=== PATIENT | male | born 1960 | race Caucasian/White ===

== ENCOUNTER → 2018-02-10 15:09 | Outpatient (CLI) | payer OTHER, SELFPAY ==
[2018-02-10 17:29] LABS: Absolute Lymphocyte Count 1.49 X10^3/ul (0.83-4.51); Absolute Neutrophil Count 5.4 X10^3/uL (2.0-7.7); Basophil# 0.01 X10^3/uL; Basophil% 0.1 % (0-1); Eosinophil# 0.19 X10^3/uL; Eosinophils% 2.4 % (0-5); Hematocrit 44.1 % (40-54); Hemoglobin 15.3 g/dl (13.0-16.5); Lymphocyte # 1.49 X10^3/ul (4.0); Lymphocyte % 18.6 % (19-41); Mean Corp Hgb Conc 34.7 g/gl (32-36); Mean Corpuscular Volume 95.2 fL (80-94); Mean Platelet Vol. 11.9 fl (6.2-12.0); Monocyte# 0.94 X10^3/uL; Monocyte% 11.8 % (0-10); Neutrophil # 5.36 X10^3/uL (2.7-7.7); Platelet Count 226 K/mm3 (150-450); RBC Distribution Width CV 12.5 % (11.6-14.6); RBC Distribution Width SD 42.3 fl (35.1-43.9); Red Blood Count 4.63 M/mm3 (4.6-6.2)
[2018-02-10 17:31] LABS: POSITIVE COUNT NO; POSITIVE DIFFERENTIAL NO; POSITIVE MORPHOLOGY NO
[2018-02-10 17:45] LABS: Hemoglobin A1c 6.9 % (4.2-6.3)
[2018-02-10 17:53] LABS: ALB/GLOB Ratio 0.8 RATIO (0.9-2.4); AST(SGOT) 25 U/L (15-37); Alanine Aminotransfer ALT/SGPT 39 U/L (16-61); Albumin, Serum 3.5 g/dL (3.2-5.0); Alkaline Phosphatase 104 U/L (45-117); Anion Gap 8 (5-15); BUN 18 mg/dL (7-18); Calcium,Total 8.8 mg/dL (8.5-10.1); Chloride 105 mmol/L (98-107); Cholesterol 131 mg/dL (200); Creatinine, Serum 1.29 mg/dL (0.70-1.30); EST Glomerular Filtration Rate 61 mL/min (>60); Est Glom Filt Rate - Afr Amer 74 mL/min (>60); Globulin 4.2 g/dL (2.2-4.2); Glucose 93 mg/dL (74-106); High Density Lipoprotein 31 mg/dL; Potassium 4.5 mmol/L (3.5-5.1); Protein, Total 7.7 g/dL (6.4-8.2); Sodium Level 140 mmol/L (136-145); T4 Free Direct 0.93 ng/dL (0.76-1.46); Thyroid Stim Hormone (TSH) 2.09 uIU/mL (0.358-3.74); Triglycerides 189 mg/dL; Very Low Density Lipoprotein 38 mg/dL (5-40)
[2018-02-11 08:36] LABS: Vitamin B12 342 pg/mL (211-911)
[2018-02-13 09:56] LABS: Anti-Mitochondrial AB <20.0 Units (0.0-20.0)
== END ==
PROVIDERS: Family Provider Family Medicine; PCP Family Medicine; Visit Provider Family Medicine
DX: I10 Essential (primary) hypertension (principal); G62.9 Polyneuropathy, unspecified; E03.9 Hypothyroidism, unspecified; E66.01 Morbid (severe) obesity due to excess calories
CPT/HCPCS: 36415; 80053; 80061; 82607; 83036; 83516; 84439; 84443; 85025

== ENCOUNTER 2018-12-23 03:49 | Emergency (ER) | payer OTHER, SELFPAY ==
[2018-12-23 03:49] VITALS: BP 187/105; PULSE 88; RESP 18; TEMP 36.4; O2SAT 96; BMI 54.6
--- NOTE | 2018-12-23 04:03 | ED.VIS.GEN ---
History of Present Illness Chief Complaint: Back Informant: Patient Narrative: She stated for the last 4 days has had left lower back pain. He has chronic back pain due to chronic degenerative disease in his low back. He has had epidurals and has been in pain management in the past with no relief. He took 2 tramadol tonight with minimal relief of symptoms. Is movement related. At baseline he has difficulty walking secondary to his chronic back pain. No new injury. It came on after he was working with some cutting of wood on a table saw 4 days ago. No loss of bowel or bladder function. No radiation to his leg. Denies any flank pain. No urinary symptoms. Past Medical History - Allergies and Home Meds Allergies/Adverse Reactions: Allergies No Known Allergies Allergy (Verified 12/23/18 03:51) Primary Care Physician: Nehemiah Mendez MD [STAFF PHYSICIAN] - Prior records reviewed: Yes Past Medical History: - - Degenerative disc disease of his back, morbid obesity Lives: Spouse/ Significant Other Smoking Status: Unknown if ever smoked Alcohol: None Drugs: None Review of Systems General: Denies: Chills, Fever, Sweats Eyes: Denies: Visual changes - bilaterally, Diplopia ENT: Denies: Rhinorrhea, Sore throat Cardiovascular: Denies: Chest pain, Palpitations Respiratory: Denies: Dyspnea, Cough, Dyspnea on exertion Gastrointestinal: Denies: Abdominal pain, Nausea, Vomiting, Diarrhea, Melena, Hematochezia Genitourinary: Denies: Dysuria, Hematuria, Frequency Musculoskeletal: Reports: Back pain. Denies: Extremity Pain Skin: Denies: Rash, Wounds Neurological: Denies: Headache, Weakness, Numbness Physical Exam Vital Signs/Narrative: Vital Signs Temp Pulse Resp BP Pulse Ox 12/23/18 03:49 97.5 F L 88 18 187/105 H 96 General: Well nourished, Well developed, No Acute Distress Head: Normocephalic, Atraumatic Eyes: Perrl, EOMI ENT: Moist mucous membranes, No rhinorrhea Neck: Supple, Nontender Cardiovascular: Regular rate, Regular rhythm, No murmurs Respiratory: No distress, CTA bilaterally, Chest nontender Abdomen: Soft, Nontender, Nondistended, Normal bowel sounds Back: - - She has left lower lumbar paraspinal tenderness. No swelling or deformity. Decreased range of motion secondary to pain. Difficulty with movement secondary to pain.. Negative for: Nontender, Normal Inspection Extremities: Nontender, No edema Skin: Normal color, No rash Neurological: Alert, Oriented x3, Cranial nerves II-XII grossly intact, Normal Strength, Normal Sensation Psychological: Normal affect, Normal Mood Diagnostic/Tx/Re-eval - Medical Decision Making This time I do not feel the patient needs lab work. This appears to be an acute left paraspinal muscular pain. Could be spasm related. Could be from his degenerative lower back disease. He has no radicular symptoms. Given a dose of Toradol and Dilaudid. She feels significantly better after treatment. Will be discharged with a short course of Percocet and Flexeril. I think this is musculoskeletal pain. He has not had an MRI for 5 years. I do not think he needs one emergently but I feel he should follow-up for further evaluation and likely will need a repeat. This will further evaluate any progression of his back disease. ED Disposition - Plan for ED Patient: Disposition: Home or Assisted Living Diagnosis: Back pain, lumbosacral Instructions: ED Sprain Strain Lumbar Prescriptions: Oxycodone HCl/Acetaminophen [Percocet 5/325] 1 tab PO Q6H PRN PRN 3 Days #12 tab PRN Reason: Pain Cyclobenzaprine [Flexeril] 10 mg PO TID PRN #10 tab PRN Reason: Muscle Spasm Referrals: Nehemiah Mendez MD [STAFF PHYSICIAN] -
[2018-12-23] MEDS: Ketorolac 30 MG/ML Syringe IM (04:10)
[2018-12-23] MEDS: HYDROmorphone 1 MG/ML Syringe IM (04:12)
[2018-12-23 05:00] VITALS: BP 161/98; PULSE 80; RESP 16; O2SAT 94
== END 2018-12-23 05:02 | disposition home or self-care (01) ==
PROVIDERS: Emergency Provider Emergency Medicine
DX: M54.5 Low back pain (principal); G89.29 Other chronic pain; R26.2 Difficulty in walking, not elsewhere classified; E66.01 Morbid (severe) obesity due to excess calories; Z79.899 Other long term (current) drug therapy
CPT/HCPCS: 96372; 99282

== ENCOUNTER 2018-12-27 04:30 | Observation (INO) | payer OTHER, SELFPAY ==
[2018-12-27 04:31] VITALS: BP 183/108; PULSE 108; RESP 28; TEMP 36.3; O2SAT 95; BMI 57.4
--- NOTE | 2018-12-27 04:54 | ED.VIS.GEN ---
History of Present Illness Chief Complaint: Back Informant: Patient Narrative: Patient stated he has been having back pain for the last week. He was seen in the emergency department 4 days ago. He is having left lower back pain with radiation to the left groin. Is movement related. I saw him in the emergency department at that time. He is has a history of acute on chronic back pain. He has had epidurals in the past with minimal relief of symptoms. He is never needed surgery. He does not have an acute orthopedic surgeon at this time. He denies any loss of bowel or bladder symptoms. It is movement related. It is worsened by movement and relieved with rest. He has been using Percocet and Flexeril with moderate relief of symptoms. He is out of Flexeril. He has 2 Percocets left. He tried to make an appointment with his doctor who is out of town. Past Medical History - Allergies and Home Meds Allergies/Adverse Reactions: Allergies No Known Allergies Allergy (Verified 12/27/18 04:34) Primary Care Physician: Care Physician,No Primary [NON-STAFF] - Prior records reviewed: Yes Past Medical History: - - Lumbar radiculopathy DJD lumbar, morbid obesity Surgical History: - - Reviewed Lives: Spouse/ Significant Other Smoking Status: Never smoker Alcohol: None Drugs: None Review of Systems General: Denies: Chills, Fever, Sweats Eyes: Denies: Visual changes - bilaterally, Diplopia ENT: Denies: Rhinorrhea, Sore throat Cardiovascular: Denies: Chest pain, Palpitations Respiratory: Denies: Dyspnea, Cough, Dyspnea on exertion Gastrointestinal: Denies: Abdominal pain, Nausea, Vomiting, Diarrhea, Melena, Hematochezia Genitourinary: Denies: Dysuria, Hematuria, Frequency Musculoskeletal: Reports: Back pain. Denies: Extremity Pain Skin: Denies: Rash, Wounds Neurological: Denies: Headache, Weakness, Numbness Physical Exam Vital Signs/Narrative: Vital Signs Temp Pulse Resp BP Pulse Ox 12/27/18 04:31 97.4 F L 108 H 28 H 183/108 H 95 General: Well nourished, Well developed, No Acute Distress Head: Normocephalic, Atraumatic Eyes: Perrl, EOMI ENT: Moist mucous membranes, No rhinorrhea Neck: Supple, Nontender Cardiovascular: Regular rate, Regular rhythm, No murmurs Respiratory: No distress, CTA bilaterally, Chest nontender Abdomen: Soft, Nontender, Nondistended, Normal bowel sounds Back: Normal Inspection, - - There is spinal tenderness left lower back with decreased range of motion secondary to pain.. Negative for: Nontender Extremities: Nontender, No edema Skin: Normal color, No rash Neurological: Alert, Oriented x3, Cranial nerves II-XII grossly intact, Normal Strength, Normal Sensation Psychological: Normal affect, Normal Mood Diagnostic/Tx/Re-eval - Medical Decision Making Patient given IV Toradol and Dilaudid. Lab work obtained. Lab work shows no significant abnormalities. CT of the abdomen pelvis as well as lumbar spine was obtained to rule out acute emergent causes of his symptoms. There is no abdominal aortic aneurysm or dissection. The patient does have a left so as injury that explains his symptoms. He is having significant pain that comes and goes every couple hours. He is required a second dose of Dilaudid. He cannot take care of himself at home. He is morbidly obese and his is slim and she cannot due to this pain. He understands this can take weeks to heal. This likely happened when he was working in the garage and the wood got away from him on the saw. Low suspicion for nerve radiculopathy. Patient was discussed with the hospitalist and will be admitted. He will likely need physical therapy and further pain control ED Disposition - Plan for ED Patient: Disposition: Home or Assisted Living Diagnosis: Muscle tear Referrals: Care Physician,No Primary [NON-STAFF] -
[2018-12-27] MEDS: HYDROmorphone 1 MG/ML Syringe IV (05:02)
[2018-12-27] MEDS: Ketorolac 15 MG/ML Vial IV ×4 (05:02→22:10)
[2018-12-27 05:11] LABS: Absolute Lymphocyte Count 0.86 X10^3/ul (0.83-4.51); Absolute Neutrophil Count 6.9 X10^3/uL (2.0-7.7); Basophil# 0.01 X10^3/uL; Basophil% 0.1 % (0-1); Eosinophil# 0.06 X10^3/uL; Eosinophils% 0.7 % (0-5); Hematocrit 41.1 % (40-54); Lymphocyte # 0.86 X10^3/ul (4.0); Lymphocyte % 10.5 % (19-41); Mean Corp Hgb Conc 34.1 g/gl (32-36); Mean Corpuscular Hgb 31.2 pg (27.0-32.0); Mean Corpuscular Volume 91.5 fL (80-94); Mean Platelet Vol. 10.3 fl (6.2-12.0); Monocyte% 4.9 % (0-10); Neutrophil # 6.85 X10^3/uL (2.7-7.7); Neutrophil % 83.7 % (47-70); POSITIVE COUNT NO; POSITIVE DIFFERENTIAL NO; POSITIVE MORPHOLOGY NO; Platelet Count 193 K/mm3 (150-450); RBC Distribution Width CV 13.3 % (11.6-14.6); RBC Distribution Width SD 44.2 fl (35.1-43.9); Red Blood Count 4.49 M/mm3 (4.6-6.2); White Blood Count 8.2 K/mm3 (4.4-11.0)
[2018-12-27] MEDS: Ondansetron 4 MG/2 ML Vial IV (05:12)
[2018-12-27 05:23] LABS: Anion Gap 6 (5-15); BUN 13 mg/dL (7-18); BUN/Creat Ratio 11.7 RATIO (10-20); Calcium,Total 8.5 mg/dL (8.5-10.1); Chloride 102 mmol/L (98-107); Creatinine, Serum 1.11 mg/dL (0.70-1.30); EST Glomerular Filtration Rate 72 mL/min (>60); Est Glom Filt Rate - Afr Amer 87 mL/min (>60); Estimated Creatinine Clearance 70.18 ml/min; Glucose 158 mg/dL (74-106); Potassium 4.3 mmol/L (3.5-5.1); Sodium Level 136 mmol/L (136-145)
--- NOTE | 2018-12-27 05:24 | CT_ITS ---
STUDY: CT LUMBAR SPINE WITHOUT CONTRAST REASON FOR EXAM: Male, 58 years old. Low back pain. History of degenerative disks. RADIATION DOSAGE (If Supplied By Facility): CTDIvol = ( 34.45 ) mGy, DLP = ( 1910.97 ) mGycm TECHNIQUE: The patient was scanned in a multi detector CT scanner. High resolution transaxial imaging was performed. Images were obtained from T12 to S2-3. Sagittal and coronal images were reconstructed. Individualized dose optimization techniques were used for this CT. COMPARISON: CT scan abdomen and pelvis done today. FINDINGS: Normal lumbar lordosis. There is no substantial scoliosis. Normal vertebrae of the lumbar spine. L1-2: Normal endplates. Disc space narrowing.. Normal bilateral facet joints. Normal central canal and bilateral lateral recesses. Normal bilateral intervertebral neural foramina. L2-3: Normal endplates. Normal disc height and morphology. Normal bilateral facet joints. Normal central canal and bilateral lateral recesses. Normal bilateral intervertebral neural foramina. L3-4: Mild spondylosis. Normal disc height and morphology. Normal bilateral facet joints. Normal central canal and bilateral lateral recesses. Normal bilateral intervertebral neural foramina. L4-5: Mild spondylosis. Broad posterior disc protrusion.. Degenerative changes right facet joint.. Moderate stenosis central canal. Mild stenosis right and moderate stenosis left lateral recesses. Mild stenosis right and normal left intervertebral neural foramina. L5-S1: Mild spondylosis. Small broad posterior disc protrusion, asymmetrically larger on the left.. Normal disc height and morphology. Normal bilateral facet joints. Normal central canal and bilateral lateral recesses. Moderate narrowing right and normal left intervertebral neural foramina. Paraspinal findings were discussed in CT scan abdomen and pelvis report. CT/Spine Lumbar without Contrast IMPRESSION: Multilevel degenerative changes, as above. No demonstrated fracture or destructive bone lesion. Electronically Signed: Mickey Pina MD at 6:53 EDT , Service support ,
--- NOTE | 2018-12-27 05:26 | CT_ITS ---
STUDY: CT ABDOMEN AND PELVIS WITHOUT CONTRAST REASON FOR EXAM: Male, 58 years old. Low back pain. History of degenerative disks. RADIATION DOSAGE (If Supplied By Facility): CTDIvol = ( 34.45 ) mGy, DLP = ( 1910.97 ) mGycm TECHNIQUE: Transaxial images were obtained from the dome of the diaphragm to the symphysis pubis without oral contrast, and without intravenous contrast. Sagittal and coronal images were reconstructed. Individualized dose optimization techniques were used for this CT. COMPARISON: None. FINDINGS: The visualized lung bases are unremarkable. The visualized portions of the heart are within normal limits. There is decreased attenuation of the liver consistent with steatosis. Normal gallbladder and extrahepatic biliary system. There is mild splenomegaly. Normal pancreas. Normal bilateral adrenal glands. Normal right kidney. Normal left kidney. Normal visualized stomach. Normal small intestine. Normal colon. There is non-visualization of the appendix. There is no evidence for appendicitis. There is mild atherosclerotic calcification of the abdominal aorta, without a demonstrated aneurysm. Normal inferior vena cava. There is no demonstrated retroperitoneal lymphadenopathy. As seen on axial images 135-156, there is an approximately 7 x 3.5 x 7 cm area of focal fat infiltration in the left side of the pelvis. Fatty infiltration is contiguous with the left psoas muscle, and the left psoas muscle appears slightly larger than the right. Conceivably, this is secondary to a psoas muscle injury, or possibly psoas muscle infection. No discrete mass or abscess is visualized in this noncontrast study. Fat infiltration is not directly contiguous with the colon or urinary bladder. There is slight nodularity of fat in the inferior portion of the left posterior paranephric space, but not directly contiguous with the left kidney. The left ureter passes through the area of fat infiltration, but appears normal both proximal and distal to the infiltration. Normal urinary bladder. Normal abdominal wall. There are multilevel degenerative changes of the visualized lumbar spine. CT/Abdomen/Pelvis without Cont IMPRESSION: Focal infiltration of pelvic fat adjacent to the left psoas muscle, which is slightly larger than the right psoas. I suspect that this represents either left psoas muscle injury or infection. Left renal pathology is thought to be less likely but is not excluded. No discrete mass, abscess, or hematoma is visualized in the psoas muscle. Would recommend study with IV contrast, including delayed images of the pelvis, to more reliably evaluate for psoas muscle pathology and to ensure against left renal or ureteral etiology. Fatty liver. Mild splenomegaly. No evidence for diverticulitis or appendicitis. No demonstrated urinary calculi or hydronephrosis. Electronically Signed: Mickey Pina MD at 6:44 EDT , Service support ,
[2018-12-27 06:33] VITALS: BP 184/98; PULSE 104; RESP 24; O2SAT 93
[2018-12-27] MEDS: HYDROmorphone 0.5 MG/0.5 ML SYRINGE IV (07:05)
[2018-12-27 07:48] VITALS: BP 184/98
--- NOTE | 2018-12-27 07:49 | PCM.HP.STD ---
Problem List (1) Muscle tear Status: Acute History of Present Illness Date of Admission: 12/27/18 Chief Complaint: back pain The patient is a 58 year old M was at a table saw and was having some back pain. Malone that he had to get the work done and then just felt given exquisite pain in his low back. Presented to the emergency room on the and was discharged with Percocet. Despite that, patient was still continued to have pain and is unable to move and even go to the bathroom. Presented to the emergency room today with the same complaints and had a CAT scan that showed focal infiltration pelvic fat adjacent to the left psoas muscle slightly larger than the right. Malone of had a so as muscle tear and received Dilaudid and Toradol in the emergency room. Patient did feel better but is unable to care for himself at home. Patient lives with his and she states that she is unable to care for him at this time. [] Past Medical History Medical History: Medical History (Last Updated 12/27/18 @ 07:53 by Ruben Sandoval DO) Hyperlipidemia E78.5 Hypothyroid E03.9 RO (obstructive sleep apnea) G47.33 HTN (hypertension) I10 Allergies No Known Allergies Allergy (Verified 12/27/18 04:34) Home Medications: Ambulatory Orders Medication Instructions Recorded Albuterol Inhaler [Ventolin Hfa] 1 - 2 puff INHALATION Q4H PRN PRN 08/08/14 #1 inhaler Cyclobenzaprine [Flexeril] 10 mg PO TID PRN #10 tab 12/23/18 Surgical History: - - Reviewed Lives: Spouse/ Significant Other Smoking Status: Never smoker Alcohol: None Drugs: None - *Family History Maternal Family History: Family History (Last Updated 12/27/18 @ 07:53 by Ruben Sandoval DO) Other CAD (coronary artery disease) Review of Systems Constitutional: Reports: Weakness. Denies: Chills, Fever, Weight Change Eyes: Reports: - - glasses. Denies: Blurred vision, Double vision HEENT: Denies: Head Aches, Sinus Congestion, Sinus Drainage Cardiovascular: Denies: Chest Pain, Palpitations Respiratory: Reports: - - apnea at night, per , up to 25 seconds. Denies: Cough, Shortness of breath at rest, Sputum production Gastrointestinal: Denies: Abdominal Pain, Nausea, Vomiting Genitourinary: Denies: Dysuria, Hematuria Musculoskeletal: Reports: Back Pain. Denies: Arm Pain Skin: Denies: Dryness, Jaundice Neurological: Denies: Numbness, Tingling, Focal weakness Psychiatric: Denies: Anxiety, Depression Hematologic/ Lymphatic: Denies: Easy Bruising, Easy Bleeding, Hx of blood clot Comment: A 10 point review of systems were negative except as mentioned in the history of present illness and the other review of systems. VTE Information - Inpt Only VTE Present on Admission: No VTE Mechan Device Prophylaxis: None VTE Pharm Prophylaxis ordered?: No Patient Problems: Active and Suspected Problems Muscle tear (Acute) - Physical Exam General: Alert, - - morbidly obese HEENT: Atraumatic, PERRLA, EOMI, Normocephalic Oral: Moist Mucosa, No Gingival or Mucosal Lesions/ Ulcerations Neck: No Nodes, Thyroid Normal Size and Texture Lungs: Clear to auscultation, Normal air movement, No rhonchi, No wheeze Cardiovascular: Regular rate, Regular Rhythm, Normal S1, Normal S2, No murmurs Abdomen: Bowel Sounds Present, Soft, Non Tender, Non-Distended, No Hepato-splenomegaly Extremities: No edema, Capillary Refill Less than 3 Seconds, No Calf Tenderness Skin: No rashes, No breakdown Musculoskeletal: No Tenderness to Palpation of Joints or Extremities, - - reproducible back pain on left Neurological: Muscle tone normal, Coordination normal Psych/Mental Status: Normal Affect, Appropriate Vital Signs Temp Pulse Resp BP Pulse Ox 36.3 C L 104 H 24 H 184/98 H 93 12/27/18 04:31 12/27/18 06:33 12/27/18 06:33 12/27/18 07:48 12/27/18 06:33 Oxygen Delivery Method Room Air Weight: 174.1 kg Body Mass Index (BMI) 57.4 Laboratory Tests Past 24 Hrs 12/27/18 12/27/18 05:04 05:04 WBC 8.2 RBC 4.49 L Hgb 14.0 Hct 41.1 MCV 91.5 MCH 31.2 MCHC 34.1 RDW 13.3 RDW Differential 44.2 H Plt Count 193 MPV 10.3 Immature Gran % (Auto) 0.100 Neut % (Auto) 83.7 H Lymph % (Auto) 10.5 L [place] % (Auto) 4.9 Eos % (Auto) 0.7 Baso % (Auto) 0.1 Absolute Neuts (auto) 6.9 Absolute Lymphs (auto) 0.86 Total Counted Not Reportable Sodium 136 Potassium 4.3 Chloride 102 Carbon Dioxide 28.0 Anion Gap 6 BUN 13 Creatinine 1.11 Estim Creat Clear Calc 70.18 Est GFR (MDRD) Af Amer 87 Est GFR (MDRD) Non-Af 72 BUN/Creatinine Ratio 11.7 Glucose 158 H Calcium 8.5 Assessment/Plan All Active Problems Muscle tear (Acute) 1. Psoas muscle tear doubt abscess nor infection as I would have expected the patient to actually have gotten worse and had infectious signs and symptoms during this period where he was not on antibiotics. I do not feel additional imaging is necessary at this time unless his condition is to worsen. then may consider doing a CAT scan with contrast or an MRI. Patient is already expressed significant apprehension about having an MRI. Discussed the patient about pain control and that he is not can be 100% pain-free and we need to keep him functional so that he can be engaged with physical therapy. I told him not to decline physical therapy as it is to help assess them to try to get him into a [facility] facility as he is unable to care for himself at home. I explained to him that the Dilaudid he received in the emergency room will only be used in case the other medication is ineffective. Patient will be on scheduled Tylenol plus Toradol plus as needed oxycodone. 2. Obstructive sleep apnea Patient tried CPAP for roughly 30 days and could not tolerate and stopped that was several years ago. Patient still continued to have apneic episodes of 25 seconds according to his . I explained to he and his that it can cause pulmonary hypertension, heart failure and even . I encouraged him to follow-up with pulmonology to see if another mask or other type of device to be more tolerable for him. I explained a last resort would be a UPP 3. Hypertension, hyperlipidemia, hypothyroidism, morbid obesity: complicating case overall care. Patient was seeing a primary care provider and then get a new one and stopped taking his medication because he did not like his new primary care provider. And thus not even a guarantee that that would be effective for him. Since patient has not been taking any of his medications, will check lipid panel, TSH. Patient's blood pressure was elevated in the emergency room so we will start the patient on Cipro and monitor. 4. VTE prophylaxis: Not indicated as patient's hospitalization is expected be less than 48 hours and patient is under observation status. 5. Disposition: Plan is for the patient to go to a [facility] facility. Explained to he and his that he is under observation status. I explained to them that I do not know how that would affect his reimbursement in regards to his hospitalization nor how that would affect him going to a [facility] facility but it may complicate the overall picture. I did talk to him about hiring aids, the house but explained to him that if he is required for our assistance, which he appears to be now that it would be potentially prohibitively expensive for him. Code Visit OBSV E&M: 54237 Initial observation care L3
--- NOTE | 2018-12-27 07:53 | HP.PCM_ITS ---
Problem List (1) Muscle tear Status: Acute History of Present Illness Date of Admission: 12/27/18 Chief Complaint: back pain The patient is a 58 year old M was at a table saw and was having some back pain. [place] that he had to get the work done and then just felt given exquisite pain in his low back. Presented to the emergency room on the and was discharged with Percocet. Despite that, patient was still continued to have pain and is unable to move and even go to the bathroom. Presented to the emergency room today with the same complaints and had a CAT scan that showed focal infiltration pelvic fat adjacent to the left psoas muscle slightly larger than the right. [place] of had a so as muscle tear and received Dilaudid and Toradol in the emergency room. Patient did feel better but is unable to care for himself at home. Patient lives with his and she states that she is unable to care for him at this time. [] Past Medical History Medical History: Medical History (Last Updated 12/27/18 @ 07:53 by Ruben Sandoval DO) Hyperlipidemia E78.5 Hypothyroid E03.9 RO (obstructive sleep apnea) G47.33 HTN (hypertension) I10 Allergies No Known Allergies Allergy (Verified 12/27/18 04:34) Home Medications: Ambulatory Orders Medication Instructions Recorded Albuterol Inhaler [Ventolin Hfa] 1 - 2 puff INHALATION Q4H PRN PRN 08/08/14 #1 inhaler Cyclobenzaprine [Flexeril] 10 mg PO TID PRN #10 tab 12/23/18 Surgical History: - - Reviewed Lives: Spouse/ Significant Other Smoking Status: Never smoker Alcohol: None Drugs: None - *Family History Maternal Family History: Family History (Last Updated 12/27/18 @ 07:53 by Ruben Sandoval DO) Other CAD (coronary artery disease) Review of Systems Constitutional: Reports: Weakness. Denies: Chills, Fever, Weight Change Eyes: Reports: - - glasses. Denies: Blurred vision, Double vision HEENT: Denies: Head Aches, Sinus Congestion, Sinus Drainage Cardiovascular: Denies: Chest Pain, Palpitations Respiratory: Reports: - - apnea at night, per , up to 25 seconds. Denies: Cough, Shortness of breath at rest, Sputum production Gastrointestinal: Denies: Abdominal Pain, Nausea, Vomiting Genitourinary: Denies: Dysuria, Hematuria Musculoskeletal: Reports: Back Pain. Denies: Arm Pain Skin: Denies: Dryness, Jaundice Neurological: Denies: Numbness, Tingling, Focal weakness Psychiatric: Denies: Anxiety, Depression Hematologic/ Lymphatic: Denies: Easy Bruising, Easy Bleeding, Hx of blood clot Comment: A 10 point review of systems were negative except as mentioned in the history of present illness and the other review of systems. VTE Information - Inpt Only VTE Present on Admission: No VTE Mechan Device Prophylaxis: None VTE Pharm Prophylaxis ordered?: No Patient Problems: Active and Suspected Problems Muscle tear (Acute) - Physical Exam General: Alert, - - morbidly obese HEENT: Atraumatic, PERRLA, EOMI, Normocephalic Oral: Moist Mucosa, No Gingival or Mucosal Lesions/ Ulcerations Neck: No Nodes, Thyroid Normal Size and Texture Lungs: Clear to auscultation, Normal air movement, No rhonchi, No wheeze Cardiovascular: Regular rate, Regular Rhythm, Normal S1, Normal S2, No murmurs Abdomen: Bowel Sounds Present, Soft, Non Tender, Non-Distended, No Hepato- splenomegaly Extremities: No edema, Capillary Refill Less than 3 Seconds, No Calf Tenderness Skin: No rashes, No breakdown Musculoskeletal: No Tenderness to Palpation of Joints or Extremities, - - reproducible back pain on left Neurological: Muscle tone normal, Coordination normal Psych/Mental Status: Normal Affect, Appropriate Vital Signs Temp Pulse Resp BP Pulse Ox 36.3 C L 104 H 24 H 184/98 H 93 12/27/18 04:31 12/27/18 06:33 12/27/18 06:33 12/27/18 07:48 12/27/18 06:33 Oxygen Delivery Method Room Air Weight: 174.1 kg Body Mass Index (BMI) 57.4 Laboratory Tests Past 24 Hrs 12/27/18 12/27/18 05:04 05:04 WBC 8.2 RBC 4.49 L Hgb 14.0 Hct 41.1 MCV 91.5 MCH 31.2 MCHC 34.1 RDW 13.3 RDW Differential 44.2 H Plt Count 193 MPV 10.3 Immature Gran % (Auto) 0.100 Neut % (Auto) 83.7 H Lymph % (Auto) 10.5 L [place] % (Auto) 4.9 Eos % (Auto) 0.7 Baso % (Auto) 0.1 Absolute Neuts (auto) 6.9 Absolute Lymphs (auto) 0.86 Total Counted Not Reportable Sodium 136 Potassium 4.3 Chloride 102 Carbon Dioxide 28.0 Anion Gap 6 BUN 13 Creatinine 1.11 Estim Creat Clear Calc 70.18 Est GFR (MDRD) Af Amer 87 Est GFR (MDRD) Non-Af 72 BUN/Creatinine Ratio 11.7 Glucose 158 H Calcium 8.5 Assessment/Plan All Active Problems Muscle tear (Acute) 1. Psoas muscle tear * doubt abscess nor infection as I would have expected the patient to actually have gotten worse and had infectious signs and symptoms during this period where he was not on antibiotics. * I do not feel additional imaging is necessary at this time unless his condition is to worsen. then may consider doing a CAT scan with contrast or an MRI. Patient is already expressed significant apprehension about having an MRI. * Discussed the patient about pain control and that he is not can be 100% pain- free and we need to keep him functional so that he can be engaged with physical therapy. I told him not to decline physical therapy as it is to help assess them to try to get him into a long-term facility as he is unable to care for himself at home. * I explained to him that the Dilaudid he received in the emergency room will only be used in case the other medication is ineffective. Patient will be on scheduled Tylenol plus Toradol plus as needed oxycodone. 2. Obstructive sleep apnea * Patient tried CPAP for roughly 30 days and could not tolerate and stopped that was several years ago. Patient still continued to have apneic episodes of 25 seconds according to his . I explained to he and his that it can cause pulmonary hypertension, heart failure and even . I encouraged him to follow-up with pulmonology to see if another mask or other type of device to be more tolerable for him. I explained a last resort would be a UPP 3. Hypertension, hyperlipidemia, hypothyroidism, morbid obesity: complicating case overall care. Patient was seeing a primary care provider and then get a new one and stopped taking his medication because he did not like his new primary care provider. And thus not even a guarantee that that would be effective for him. Since patient has not been taking any of his medications, will check lipid panel, TSH. Patient's blood pressure was elevated in the emergency room so we will start the patient on Cipro and monitor. 4. VTE prophylaxis: Not indicated as patient's hospitalization is expected be less than 48 hours and patient is under observation status. 5. Disposition: Plan is for the patient to go to a long-term facility. Explained to he and his that he is under observation status. I explained to them that I do not know how that would affect his reimbursement in regards to his hospitalization nor how that would affect him going to a long-term facility but it may complicate the overall picture. I did talk to him about hiring aids, the house but explained to him that if he is required for our assistance, which he appears to be now that it would be potentially prohibitively expensive for him. Code Visit OBSV E&M: 38358 Initial observation care L3
[2018-12-27 08:15] VITALS: BMI 57.5
--- NOTE | 2018-12-27 08:27 | NURSING ---
PT STATES DOES NOT RECEIVED FLU VACINE
[2018-12-27 08:28] LABS: Thyroid Stim Hormone (TSH) 3.68 uIU/mL (0.358-3.74)
[2018-12-27] MEDS: Acetaminophen 500 MG Tablet 1000 MG PO ×3 (09:38→22:10)
[2018-12-27] MEDS: Lisinopril 10 MG Tablet PO (09:39)
[2018-12-27] MEDS: oxyCODONE 5 MG Tablet PO ×3 (09:39→23:36)
[2018-12-27] MEDS: Bisacodyl 5 MG Tablet 10 MG PO (09:39)
[2018-12-27] MEDS: Docusate Sodium 100 MG Capsule PO ×2 (09:39→22:10)
[2018-12-27 10:13] LABS: Hemoglobin A1c 7.3 % (4.2-6.3)
--- NOTE | 2018-12-27 10:31 | NURSING ---
HOME MEDICATIONS VERIFIED WITH [facility], HOWEVER, PT STATES HAS NOT BEEN TAKING THESE MEDS @ HOME & PHARMACY STATES PT HAS NOT GOTTEN THESE MEDICATIONS FILLED SINCE JANUARY 2018.
[2018-12-27] MEDS: 0.9% NaCl Peripheral Flush Adult/Peds IV ×2 (11:14→16:06)
[2018-12-27 11:20] LABS: Bedside Glucose 198 mg/dL (70-110)
[2018-12-27] MEDS: Insulin Lispro 100 UNIT/ML INSULN.PEN SQ (11:20)
--- NOTE | 2018-12-27 11:48 | CASEMGMT ---
Addendum entered by Shamika Bright 12/27/18 13:28: SW faxed referral to [facility]. SW placed a call to Sonja at [facility], left message regarding referral. Original Note: Social Work Note SW reviewed notes, pt is interested in SNF. SW met with pt, introduced self and role at [facility]. Pt is alert and orientated x4. Pt confirms that he is interested in SNF and states interest in [facility]. SW explained referral process and that pt will need pre-cert. YUSEF will fax referral once PT/OT works with pt. Plan: [facility] pending acceptance and pre-cert Shamika Bright FOUNTAIN JERK, AIRCRAFT SYSTEMS TECHNICIAN
[2018-12-27 13:58] VITALS: BP 157/78; PULSE 97; RESP 18; TEMP 37.4; O2SAT 93
--- NOTE | 2018-12-27 15:15 | CASEMGMT ---
Social Work Note SW received message from Sandy at [facility] stating they are able to accept pt and will submit for pre-cert. Plan: [facility] pending pre-cert Shamika Bright POWER PRESS TENDER, VETERINARY LABORATORY TECHNICIAN
[2018-12-27 15:56] LABS: Bedside Glucose 92 mg/dL (70-110)
[2018-12-27 19:44] VITALS: BP 150/74; PULSE 85; RESP 20; TEMP 37.2; O2SAT 94
[2018-12-27 22:05] VITALS: BP 168/93; PULSE 91; RESP 18; TEMP 37.6; O2SAT 95
[2018-12-28] MEDS: 0.9% NaCl Peripheral Flush Adult/Peds IV ×2 (04:43→10:42)
[2018-12-28] MEDS: Ketorolac 15 MG/ML Vial IV ×2 (04:43→10:35)
[2018-12-28 04:47] VITALS: BP 159/96; PULSE 86; RESP 18; TEMP 37.3; O2SAT 96
[2018-12-28] MEDS: Acetaminophen 500 MG Tablet 1000 MG PO ×2 (05:49→13:02)
[2018-12-28] MEDS: Insulin Lispro 100 UNIT/ML INSULN.PEN SQ (06:40)
[2018-12-28 06:41] LABS: Cholesterol 131 mg/dL (200); High Density Lipoprotein 30 mg/dL; Triglycerides 110 mg/dL; Very Low Density Lipoprotein 22 mg/dL (5-40)
[2018-12-28 06:45] LABS: Bedside Glucose 182 mg/dL (70-110)
[2018-12-28] MEDS: Docusate Sodium 100 MG Capsule PO (08:37)
[2018-12-28] MEDS: oxyCODONE 5 MG Tablet 10 MG PO ×2 (08:37→13:03)
[2018-12-28] MEDS: Lisinopril 10 MG Tablet PO (08:38)
[2018-12-28 10:00] VITALS: BP 157/76; PULSE 88; RESP 18; TEMP 37.4; O2SAT 96
--- NOTE | 2018-12-28 11:27 | PCM.TXEXTCAR ---
- Diet 12/27/18 08:45 Diet: 1800 Kcal/day Is pt able to select menu?: Yes - Routine Orders/Code Status Enema Type: [place] - Wound(s) BLE Wound Type: scabs - Therapies Physical Therapy: Eval and Treat Occupational Therapy: Eval and Treat - Problem/Diagnosis (1) Muscle tear Status: Acute Current Visit: Yes - Allergies/Procedures Done in Hospital Allergies/Adverse Reactions: Allergies No Known Allergies Allergy (Verified 12/27/18 04:34) - Type of Care/Length of Stay Estimated LOS: Convalescent Care Less Than 30 days Type of Care Needed: Skilled Rehab Potential: Fair Prognosis: Fair - Additional Orders/Day of Discharge Day of Discharge: 12/28/18 - Follow Up Care Primary Care Physician: Care Physician,No Primary [NON-STAFF] - Please Follow Up With: Elias Rachel MD When: 1-2 weeks
--- NOTE | 2018-12-28 11:31 | PCM.DC.SUM ---
Discharge Date and Diagnosis - Problem List Patient Problems: Active and Suspected Problems (Last Updated 12/27/18 @ 07:53 by Ruben Sandoval DO) Muscle tear (Acute) Date of Admission: 12/27/18 Date of Discharge: 12/28/18 - Primary Discharge Diagnosis Active and Suspected Problems (Last Updated 12/27/18 @ 07:53 by Ruben Sandoval DO) Muscle tear (Acute) 1. Psoas muscle tear doubt abscess nor infection as I would have expected the patient to actually have gotten worse and had infectious signs and symptoms during this period where he was not on antibiotics. I do not feel additional imaging is necessary at this time unless his condition is to worsen. then may consider doing a CAT scan with contrast or an MRI. Patient is already expressed significant apprehension about having an MRI. Discussed the patient about pain control and that he is not can be 100% pain-free and we need to keep him functional so that he can be engaged with physical therapy. I told him not to decline physical therapy as it is to help assess them to try to get him into a [facility] facility as he is unable to care for himself at home. I explained to him that the Dilaudid he received in the emergency room will only be used in case the other medication is ineffective. Patient will be on scheduled Tylenol plus Toradol plus as needed oxycodone. 2. Obstructive sleep apnea Patient tried CPAP for roughly 30 days and could not tolerate and stopped that was several years ago. Patient still continued to have apneic episodes of 25 seconds according to his . I explained to he and his that it can cause pulmonary hypertension, heart failure and even . I encouraged him to follow-up with pulmonology to see if another mask or other type of device to be more tolerable for him. I explained a last resort would be a UPP 3. Hypertension, hyperlipidemia, hypothyroidism, morbid obesity: complicating case overall care. Patient was seeing a primary care provider and then get a new one and stopped taking his medication because he did not like his new primary care provider. And thus not even a guarantee that that would be effective for him. Since patient has not been taking any of his medications, will check lipid panel, TSH. Patient's blood pressure was elevated in the emergency room so we will start the patient on Cipro and monitor. 4. DM2: A1C 7.3. Diabetic diet. Hospital Course and Treatment Imaging Results: Clinical Impression(s) from Imaging Studies Lumbar Spine CT 12/27/18 05:24 IMPRESSION: Multilevel degenerative changes, as above. No demonstrated fracture or destructive bone lesion. Electronically Signed: Mickey Pina MD at 6:53 EDT , Service support , Abdomen/Pelvis CT 12/27/18 05:26 IMPRESSION: Focal infiltration of pelvic fat adjacent to the left psoas muscle, which is slightly larger than the right psoas. I suspect that this represents either left psoas muscle injury or infection. Left renal pathology is thought to be less likely but is not excluded. No discrete mass, abscess, or hematoma is visualized in the psoas muscle. Would recommend study with IV contrast, including delayed images of the pelvis, to more reliably evaluate for psoas muscle pathology and to ensure against left renal or ureteral etiology. Fatty liver. Mild splenomegaly. No evidence for diverticulitis or appendicitis. No demonstrated urinary calculi or hydronephrosis. Electronically Signed: Mickey Pina MD at 6:44 EDT , Service support , Operations: None Procedures: 2-D Echocardiogram Summary of Care Provided: The patient is a 58 year old M who presents with back pain. Few days prior, patient ~given his back when he is having pain. Had a CAT scan that showed inflammation of the left psoas muscle. Clinically patient was not infectious additional evaluation was not necessary. Patient was unable to care for himself at home so patient was brought under observation status evaluated by therapy and has been approved to go to [facility] in stable condition. Patient still has significant pain at this point in time but essentially unchanged. Patient will continue with acetaminophen, ibuprofen, oxycodone and Flexeril. [] Patient Problems: Active and Suspected Problems (Last Updated 12/27/18 @ 07:53 by Ruben Sandoval DO) Muscle tear (Acute) - Physical Exam General: Alert, No apparent distress HEENT: Atraumatic, Normocephalic Oral: Moist Mucosa, No Gingival or Mucosal Lesions/ Ulcerations Neck: No Nodes, Thyroid Normal Size and Texture Lungs: Clear to auscultation, Normal air movement, No rhonchi, No wheeze Cardiovascular: Regular rate, Regular Rhythm, Normal S1, Normal S2, No murmurs Abdomen: Bowel Sounds Present, Soft, Non Tender, Non-Distended, No Hepato-splenomegaly Psych/Mental Status: Normal Affect, Appropriate Vital Signs Temp Pulse Resp BP Pulse Ox 37.3 C H 86 18 159/96 H 96 12/28/18 04:47 12/28/18 04:47 12/28/18 04:47 12/28/18 04:47 12/28/18 04:47 Oxygen Delivery Method Room Air Weight: 171.6 kg Body Mass Index (BMI) 57.5 Intake and Output for Last 24 Hours 12/26/18 12/27/18 12/28/18 23:59 23:59 23:59 Intake Total 1230 / 1230 250 / 250 Output Total 500 / 500 Balance 730 / 730 250 / 250 Laboratory Tests Past 24 Hrs 12/28/18 05:33 Triglycerides 110 Cholesterol 131 LDL Cholesterol 79 VLDL Cholesterol 22 HDL Cholesterol 30 L POC Glucose 12/28/18 12/27/18 06:38 15:51 POC Glucose 182 H 92 Discharge Diet: 1800 Calorie Control Diet Discharge Activity: Return to Normal Activity Home Medications: Medications to take at Discharge Albuterol Inhaler [Ventolin Hfa] 1 - 2 puff INHALATION Q4H PRN PRN #1 inhaler 08/08/14 Cyclobenzaprine [Flexeril] 10 mg PO TID PRN #10 tab 12/23/18 Acetaminophen [Tylenol] 1,000 mg PO Q8 tablet 12/28/18 Ibuprofen 600 mg PO 4X/DAY PRN #1 tablet 12/28/18 Lisinopril [Zestril] 10 mg PO DAILY tablet 12/28/18 Oxycodone [Oxyir] 5 mg PO Q6H PRN 3 Days #12 tab 12/28/18 Following Prescrptions Were Given to Patient: Oxycodone [Oxyir] 5 mg PO Q6H PRN 3 Days #12 tab PRN Reason: Moderate Pain (4-6/10) Ibuprofen 600 mg PO 4X/DAY PRN #1 tablet PRN Reason: Pain Primary Care Physician: Care Physician,No Primary [NON-STAFF] - Please Follow Up With: Elias Rachel MD When: 1-2 weeks Disposition: [facility] facility Minutes spent on discharge:: 28 Medical Necessity - Tobacco Use Smoking Status: Never smoker Meaningful Use Info Meaningful Use Diagnoses (Choose all that apply): None applicable Code Visit OBSV E&M: 18790 Observation care discharge
--- NOTE | 2018-12-28 11:35 | DS.PCM_ITS ---
Discharge Date and Diagnosis - Problem List Patient Problems: Active and Suspected Problems (Last Updated 12/27/18 @ 07:53 by Ruben Sandoval DO) Muscle tear (Acute) Date of Admission: 12/27/18 Date of Discharge: 12/28/18 - Primary Discharge Diagnosis Active and Suspected Problems (Last Updated 12/27/18 @ 07:53 by Ruben Sandoval DO) Muscle tear (Acute) 1. Psoas muscle tear * doubt abscess nor infection as I would have expected the patient to actually have gotten worse and had infectious signs and symptoms during this period where he was not on antibiotics. * I do not feel additional imaging is necessary at this time unless his condition is to worsen. then may consider doing a CAT scan with contrast or an MRI. Patient is already expressed significant apprehension about having an MRI. * Discussed the patient about pain control and that he is not can be 100% pain- free and we need to keep him functional so that he can be engaged with physical therapy. I told him not to decline physical therapy as it is to help assess them to try to get him into a shelter facility as he is unable to care for himself at home. * I explained to him that the Dilaudid he received in the emergency room will only be used in case the other medication is ineffective. Patient will be on scheduled Tylenol plus Toradol plus as needed oxycodone. 2. Obstructive sleep apnea * Patient tried CPAP for roughly 30 days and could not tolerate and stopped that was several years ago. Patient still continued to have apneic episodes of 25 seconds according to his . I explained to he and his that it can cause pulmonary hypertension, heart failure and even . I encouraged him to follow-up with pulmonology to see if another mask or other type of device to be more tolerable for him. I explained a last resort would be a UPP 3. Hypertension, hyperlipidemia, hypothyroidism, morbid obesity: complicating case overall care. Patient was seeing a primary care provider and then get a new one and stopped taking his medication because he did not like his new primary care provider. And thus not even a guarantee that that would be effective for him. Since patient has not been taking any of his medications, will check lipid panel, TSH. Patient's blood pressure was elevated in the emergency room so we will start the patient on Cipro and monitor. 4. DM2: A1C 7.3. Diabetic diet. Hospital Course and Treatment Imaging Results: Clinical Impression(s) from Imaging Studies Lumbar Spine CT 12/27/18 05:24 IMPRESSION: Multilevel degenerative changes, as above. No demonstrated fracture or destructive bone lesion. Electronically Signed: Mickey Pina MD at 6:53 EDT , Service support , Abdomen/Pelvis CT 12/27/18 05:26 IMPRESSION: Focal infiltration of pelvic fat adjacent to the left psoas muscle, which is slightly larger than the right psoas. I suspect that this represents either left psoas muscle injury or infection. Left renal pathology is thought to be less likely but is not excluded. No discrete mass, abscess, or hematoma is visualized in the psoas muscle. Would recommend study with IV contrast, including delayed images of the pelvis, to more reliably evaluate for psoas muscle pathology and to ensure against left renal or ureteral etiology. Fatty liver. Mild splenomegaly. No evidence for diverticulitis or appendicitis. No demonstrated urinary calculi or hydronephrosis. Electronically Signed: Mickey Pina MD at 6:44 EDT , Service support , Operations: None Procedures: 2-D Echocardiogram Summary of Care Provided: The patient is a 58 year old M who presents with back pain. Few days prior, patient ~given his back when he is having pain. Had a CAT scan that showed inflammation of the left psoas muscle. Clinically patient was not infectious additional evaluation was not necessary. Patient was unable to care for himself at home so patient was brought under observation status evaluated by therapy and has been approved to go to [facility] in stable condition. Patient still has significant pain at this point in time but essentially unchanged. Patient will continue with acetaminophen, ibuprofen, oxycodone and Flexeril. [] Patient Problems: Active and Suspected Problems (Last Updated 12/27/18 @ 07:53 by Ruben Sandoval DO) Muscle tear (Acute) - Physical Exam General: Alert, No apparent distress HEENT: Atraumatic, Normocephalic Oral: Moist Mucosa, No Gingival or Mucosal Lesions/ Ulcerations Neck: No Nodes, Thyroid Normal Size and Texture Lungs: Clear to auscultation, Normal air movement, No rhonchi, No wheeze Cardiovascular: Regular rate, Regular Rhythm, Normal S1, Normal S2, No murmurs Abdomen: Bowel Sounds Present, Soft, Non Tender, Non-Distended, No Hepato- splenomegaly Psych/Mental Status: Normal Affect, Appropriate Vital Signs Temp Pulse Resp BP Pulse Ox 37.3 C H 86 18 159/96 H 96 12/28/18 04:47 12/28/18 04:47 12/28/18 04:47 12/28/18 04:47 12/28/18 04:47 Oxygen Delivery Method Room Air Weight: 171.6 kg Body Mass Index (BMI) 57.5 Intake and Output for Last 24 Hours 12/26/18 12/27/18 12/28/18 23:59 23:59 23:59 Intake Total 1230 / 1230 250 / 250 Output Total 500 / 500 Balance 730 / 730 250 / 250 Laboratory Tests Past 24 Hrs 12/28/18 05:33 Triglycerides 110 Cholesterol 131 LDL Cholesterol 79 VLDL Cholesterol 22 HDL Cholesterol 30 L POC Glucose 12/28/18 12/27/18 06:38 15:51 POC Glucose 182 H 92 Discharge Diet: 1800 Calorie Control Diet Discharge Activity: Return to Normal Activity Home Medications: Medications to take at Discharge Albuterol Inhaler [Ventolin Hfa] 1 - 2 puff INHALATION Q4H PRN PRN #1 inhaler 08/08/14 Cyclobenzaprine [Flexeril] 10 mg PO TID PRN #10 tab 12/23/18 Acetaminophen [Tylenol] 1,000 mg PO Q8 tablet 12/28/18 Ibuprofen 600 mg PO 4X/DAY PRN #1 tablet 12/28/18 Lisinopril [Zestril] 10 mg PO DAILY tablet 12/28/18 Oxycodone [Oxyir] 5 mg PO Q6H PRN 3 Days #12 tab 12/28/18 Following Prescrptions Were Given to Patient: Oxycodone [Oxyir] 5 mg PO Q6H PRN 3 Days #12 tab PRN Reason: Moderate Pain (4-6/10) Ibuprofen 600 mg PO 4X/DAY PRN #1 tablet PRN Reason: Pain Primary Care Physician: Care Physician,No Primary [NON-STAFF] - Please Follow Up With: Elias Rachel MD When: 1-2 weeks Disposition: Snf facility Minutes spent on discharge:: 28 Medical Necessity - Tobacco Use Smoking Status: Never smoker Meaningful Use Info Meaningful Use Diagnoses (Choose all that apply): None applicable Code Visit OBSV E&M: 23342 Observation care discharge
--- NOTE | 2018-12-28 12:20 | CASEMGMT ---
Social Work Note YUSEF received message from Sonja at [facility] stating pre-cert has been obtained and pt is able to discharge to [facility] today. Physician updated. YUSEF faxed completed discharge paperwork to [facility] including transfer to extended care facility, signed medication list and any scripts. Original in SNF folder and copy on pt's chart. YUSEF completed PAS/RR in [facility]. Original in SNF folder and copy on pt's chart. RN states pt is able to be transported via cot. YUSEF called [facility] and arranged for transportation via bariatric cot for 2:00pm. Transportation form on SNF folder and copy on pt's chart. YUSEF updated pt on approval for [facility] and transportation time. Pt states he will call his . YUSEF updated RN and placed a call to Sonja at [facility] and left message informing her of transportation time. Plan: Pt to discharge to [facility] skilled today with [facility] transporting via bariatric cot at 2:00pm Shamika Bright MSW, FAST FOOD SERVER
[2018-12-28 13:02] LABS: Bedside Glucose 100 mg/dL (70-110)
== END 2018-12-28 14:10 | disposition skilled nursing facility (03) ==
LOC: ED 07:04 → MS3 07:38
PROVIDERS: Emergency Provider Emergency Medicine; Family Provider Family Medicine; PCP Family Medicine
DX: S39.012D Strain of muscle, fascia and tendon of lower back, subsequent encounter (principal); X58.XXXD Exposure to other specified factors, subsequent encounter; G89.29 Other chronic pain; M47.896 Other spondylosis, lumbar region; E66.01 Morbid (severe) obesity due to excess calories; Z68.43 Body mass index [BMI] 50.0-59.9, adult; Z71.3 Dietary counseling and surveillance; E78.5 Hyperlipidemia, unspecified; E03.9 Hypothyroidism, unspecified; G47.33 Obstructive sleep apnea (adult) (pediatric); I10 Essential (primary) hypertension; Z79.899 Other long term (current) drug therapy; E11.9 Type 2 diabetes mellitus without complications
CPT/HCPCS: 36415; 72131; 74176; 80048; 80061; 82962; 83036; 84443; 85025; 96374; 96375; 96376; 97163; 97166; 99218; 99284; J7030; A4216; G0378; J2405

== ENCOUNTER 2018-12-28 16:20 | Inpatient (IN) | payer OTHER, MEDICAID, SELFPAY ==
[2018-12-27 08:15] VITALS: BMI 57.5
[2018-12-28] VITALS (9 sets, daily range): BP systolic 178–192; BP diastolic 97–107; PULSE 94–107; RESP 14–22; TEMP 38–39.3; O2SAT 89–95; BMI 55.7; BMI 55.8; BMI 56.7
--- NOTE | 2018-12-28 16:39 | RAD_ITS ---
STUDY: X-RAY CHEST REASON FOR EXAM: Male, 58 years old. Fever and back pain TECHNIQUE: Single frontal view of the chest. COMPARISON: 08/08/2014 FINDINGS: The lungs are clear and expanded. There is no demonstrated pleural abnormality. Normal size heart. Normal mediastinum and miriam. Normal visualized pulmonary arteries. Normal visualized aortic arch and descending thoracic aorta. Normal visualized thoracic spine. Normal visualized ribs, clavicles, and shoulders. There is no demonstrated abnormality of the visualized soft tissue structures of the upper abdomen. RAD/Chest 1 View (Portable) IMPRESSION: Normal x-ray examination of the chest. Electronically Signed: Royal Celis MD at 17:02 EDT Tel , Service support ,
[2018-12-28] MEDS: 0.9% Normal Saline 1,000 ML 150 ML IV (17:15)
[2018-12-28] MEDS: Acetaminophen 325 MG Tablet 650 MG PO (17:15)
[2018-12-28 17:24] LABS: Absolute Lymphocyte Count 0.67 X10^3/ul (0.83-4.51); Absolute Neutrophil Count 7.8 X10^3/uL (2.0-7.7); Basophil# 0.01 X10^3/uL; Basophil% 0.1 % (0-1); Eosinophil# 0.02 X10^3/uL; Eosinophils% 0.2 % (0-5); Hematocrit 39.2 % (40-54); Hemoglobin 13.2 g/dl (13.0-16.5); Lymphocyte # 0.67 X10^3/ul (4.0); Lymphocyte % 6.8 % (19-41); Mean Corp Hgb Conc 33.7 g/gl (32-36); Mean Corpuscular Hgb 31.1 pg (27.0-32.0); Mean Corpuscular Volume 92.2 fL (80-94); Mean Platelet Vol. 10.6 fl (6.2-12.0); Monocyte# 1.33 X10^3/uL; Monocyte% 13.5 % (0-10); Neutrophil # 7.79 X10^3/uL (2.7-7.7); Neutrophil % 79.3 % (47-70); Platelet Count 222 K/mm3 (150-450); RBC Distribution Width CV 13.6 % (11.6-14.6); RBC Distribution Width SD 45.3 fl (35.1-43.9); Red Blood Count 4.25 M/mm3 (4.6-6.2); White Blood Count 9.8 K/mm3 (4.4-11.0)
[2018-12-28 17:28] LABS: POSITIVE COUNT NO; POSITIVE DIFFERENTIAL NO; POSITIVE MORPHOLOGY NO
[2018-12-28 17:36] LABS: ALB/GLOB Ratio 0.6 RATIO (0.9-2.4); AST(SGOT) 42 U/L (15-37); Alanine Aminotransfer ALT/SGPT 61 U/L (16-61); Albumin, Serum 2.8 g/dL (3.2-5.0); Alkaline Phosphatase 123 U/L (45-117); Anion Gap 6 (5-15); BUN 18 mg/dL (7-18); BUN/Creat Ratio 15.1 RATIO (10-20); Calcium,Total 8.3 mg/dL (8.5-10.1); Chloride 97 mmol/L (98-107); Creatinine, Serum 1.19 mg/dL (0.70-1.30); EST Glomerular Filtration Rate 67 mL/min (>60); Est Glom Filt Rate - Afr Amer 81 mL/min (>60); Estimated Creatinine Clearance 67.66 ml/min; Globulin 4.5 g/dL (2.2-4.2); Glucose 114 mg/dL (74-106); Potassium 4.2 mmol/L (3.5-5.1); Protein, Total 7.3 g/dL (6.4-8.2); Sodium Level 133 mmol/L (136-145)
--- NOTE | 2018-12-28 17:45 | CT_ITS ---
STUDY: CT ABDOMEN AND PELVIS WITHOUT CONTRAST REASON FOR EXAM: Male, 58 years old. Left psoas injury RADIATION DOSAGE (If Supplied By Facility): CTDIvol = ( 19.44 ) mGy, DLP = ( 2229.22 ) mGycm TECHNIQUE: Transaxial images were obtained from the dome of the diaphragm to the symphysis pubis without oral contrast, and without intravenous contrast. Sagittal and coronal images were reconstructed. Individualized dose optimization techniques were used for this CT. COMPARISON: 12/27/2018 FINDINGS: The visualized lung bases are unremarkable. The visualized portions of the heart are within normal limits. Normal liver. Normal gallbladder and extrahepatic biliary system. Normal spleen. Normal pancreas. Normal bilateral adrenal glands. Normal right kidney. Normal left kidney. Normal visualized stomach. Normal small intestine. Normal colon. There is non-visualization of the appendix. Normal abdominal aorta. Normal inferior vena cava. Once again, there is swelling and enlargement of the left psoas muscle compared to the right side with some adjacent retroperitoneal fatty stranding. No distinct so as abscess or hemorrhage is identified, however. Of note, delayed postcontrast images demonstrate patency of the left ureter, although it does pass through the retroperitoneal stranding described above. Overall, differential includes psoas myositis, psoas strain and early retroperitoneal fibrosis. Normal urinary bladder. Normal abdominal wall. Normal osseous structures. CT/Abdomen/Pelvis W IV Cont ONLY IMPRESSION: Left psoas muscle enlargement and adjacent retroperitoneal fatty stranding without evidence of adjacent ureter obstruction, psoas abscess, distinct hemorrhage, or ureter stone. Differential includes psoas myositis, psoas strain and early retroperitoneal fibrosis. Consider short interval CT follow-up in 4-8 weeks. Electronically Signed: Royal Celis MD at 18:32 EDT Tel , Service support ,
[2018-12-28 17:49] LABS: Mucous, Urine 0 SEEN /hpf (<or=2+); Red Blood Cells-Urine 0 SEEN /hpf (0-5); Squamous Epithelial Cells - UA 0 SEEN /hpf (0-5)
[2018-12-28 17:49] LABS: Lactic Acid 1.5 mmol/L (0.4-2.0)
[2018-12-28 18:17] LABS: Color, Urine Yellow (Yellow); Glucose, Dipstick Normal (Normal); Ketone-Dipstick Negative (Negative); Leukocyte Esterase-Dipstick 25 /ul (Negative); Nitrite-Dipstick Positive (Negative); Occult Blood-Urine 25 /ul (Negative); Protein-Dipstick 30 mg/dl (Negative); Specific Gravity, Urine 1.015 (1.002-1.030); Urine Bilirubin Dipstick Negative (Negative); Urine Clarity Clear (Clear); Urine Urobilinogen Normal (Normal); Urine pH 6.5 (5.0 - 8.0)
[2018-12-28] MEDS: HYDROmorphone 1 MG/ML Syringe IV (18:35)
[2018-12-28 18:36] LABS: Bacteria 2+ /hpf (None Seen); White Blood Cells 0-5 SEEN /hpf (0-5)
[2018-12-28] MEDS: Ibuprofen 600 MG Tablet 800 MG PO (19:26)
[2018-12-28] MEDS: Ceftriaxone 1 GM/50 ML BAG IV (19:26)
--- NOTE | 2018-12-28 19:27 | ED.VISSUMM ---
- ER Visit Summary Date of Service: 12/28/18 Chief Complaint: [Fever] History of Present Illness: The patient is a 58 M [the emergency department complaint of a fever that started yesterday. Patient states that he was admitted to the hospital and being transferred to a long-term facility called [facility] for intractable back pain. Patient was not accepted by the center once he got there because of the fever of unknown etiology and was referred back to the emergency department via ambulance. Patient does describe some brown discoloration to his urine which is abnormal for him. Patient does have this pain in his left back for which he did not have any type of direct injury. During his stay in the hospital. He had a CT scan that showed focal infiltration of pelvic fat adjacent to the left psoas muscle which is slightly larger than the right psoas disc was suspected of representing either a left psoas muscle injury or infection. It was recommended the patient have a CT scan with IV contrast however that was not performed as it was felt that this was not an infectious process by the admitting physician. Patient denies any significant cough. He denies any abdominal pain. He denies vomiting or diarrhea.] Physical Examination: [HEENT-PERRLA, EOMI. Cranial nerves II through XII grossly intact. TMs clear. Mucous membranes moist. No adenopathy. Cardiovascular-regular rate and rhythm without murmur or ectopy Lungs-clear to auscultation, chest wall stable without crepitus or subcu emphysema Abdomen-normoactive bowel sounds, soft, nontender, no rebound or rigidity, no peritoneal signs. Back exam-patient has tenderness diffusely about the lumbar paraspinal musculature. Patient has pain with movement of his left leg. Deep tendon reflexes are plus out of 4 bilaterally at the patella and Achilles. Patient has normal 5 extension bilaterally. Extremities-intact ?4, normal range of motion, normal pulses, atraumatic] Test Results: [CBC with differential obtained showed a white blood cell count of 9.8, hemoglobin 13, hematocrit 39, platelets 222. Chemistries unremarkable. LFTs were normal. Urinalysis was positive for 25 leukocyte esterase and positive for nitrites. Patient has 0-5 WBCs and +2 bacteria. Urine culture was sent. Patient also had blood culture sent. CT scan was obtained with IV contrast of the abdomen and pelvis was read by radiology as left psoas muscle enlargement adjacent retroperitoneal fat stranding without evidence of adjacent ureter obstruction psoas abscess distinct hemorrhage or ureter stone. Differential includes psoas myositis versus psoas strain and early retroperitoneal fibrosis. Was recommended interval follow-up with CT in 4 to 8 weeks.] Emergency Department Course and Treatment: [Patient was started initially on Tylenol however his temperature went up and then was written for ibuprofen. Patient was started on Rocephin 1 g IV.] Treatment Plan: [Admit for IV antibiotics and pain control] Disposition: Admit [] Impression: [UTI Back pain Fever] This note was generated with [employer] dictation software. It may contain incorrect words, spelling, and punctuation that were not noted in review of the chart prior to signing ED Disposition - Plan for ED Patient: Referrals: Elias Rachel MD [Primary Care Provider] -
--- NOTE | 2018-12-28 19:41 | PCM.HP.STD ---
Problem List (1) Intractable left lower back pain Status: Acute (2) Acute cystitis Status: Acute (3) Hypertension Status: Chronic (4) Muscle tear Status: Acute History of Present Illness Date of Admission: 12/28/18 Chief Complaint: Fever, back pain. The patient is a 58 year old M with past medical history as mentioned above transferred from the assisted because of fever. The patient was discharged from the hospital today to the assisted after admission for left psoas muscle tear after he was managed with pain medications and physical therapy and he was sent back from the assisted because of fever. He was not accepted by the assisted because he was found to have a fever without obvious etiology and he was referred back to the ED for evaluation. Patient complained of left lower back pain, dull aching pain, described as muscle spasm, 1 out of 10 after he received 1 dose of IV Dilaudid, aggravated by movement, somewhat relieved by rest and no associated symptoms. He complains of dark-colored urine but he denies dysuria or hematuria. He denies cough or sputum production. He complains of heartburn which is unusual for him. He denied abdominal pain, nausea or vomiting. He complains of constipation. In the emergency department, patient was febrile, tachycardic, blood pressure was elevated. Pulse ox was normal on room air. Routine blood work was remarkable for sodium of 133, otherwise unremarkable. LFT was normal. Lactic acid was normal. Chest x-ray showed no acute findings. Urinalysis revealed clear urine, positive for nitrite, there was 25 leukocyte esterase, 0-5 WBC and 2+ bacteria. CT scan abdomen and pelvis with IV contrast revealed left psoas muscle enlargement with adjacent retroperitoneal fat stranding without evidence of abscess, hemorrhage, no evidence of ureteral obstruction or ureteral stones. Patient is being admitted for intractable left lower back pain due to left psoas muscle enlargement/tear/injury and also found to have acute cystitis. Past Medical History Past Medical History (Chronic Problems): Chronic Problems (Last Updated 12/27/18 @ 07:53 by Ruben Sandoval DO) Hypertension (Chronic) Medical History: Medical History (Last Updated 12/27/18 @ 07:53 by Ruben Sandoval DO) Hyperlipidemia E78.5 Hypothyroid E03.9 RO (obstructive sleep apnea) G47.33 HTN (hypertension) I10 Allergies No Known Allergies Allergy (Verified 12/27/18 04:34) Home Medications: Ambulatory Orders Medication Instructions Recorded Albuterol Inhaler [Ventolin Hfa] 1 - 2 puff INHALATION Q4H PRN PRN 08/08/14 #1 inhaler Cyclobenzaprine [Flexeril] 10 mg PO TID PRN #10 tab 12/23/18 Acetaminophen [Tylenol] 1,000 mg PO Q8 tablet 12/28/18 Ibuprofen 600 mg PO 4X/DAY PRN #1 tablet 12/28/18 Lisinopril [Zestril] 10 mg PO DAILY tablet 12/28/18 Oxycodone [Oxyir] 5 mg PO Q6H PRN 3 Days #12 tab 12/28/18 Surgical History: noncontributory, - Lives: Spouse/ Significant Other Smoking Status: Never smoker Alcohol: None Drugs: None - *Family History Maternal Family History: Family History (Last Updated 12/27/18 @ 07:53 by Ruben Sandoval DO) Other CAD (coronary artery disease) History Items: No pertinent history Paternal Family History: Family History (Last Updated 12/27/18 @ 07:53 by Ruben Sandoval DO) Other CAD (coronary artery disease) History Items: No pertinent history Review of Systems Constitutional: Reports: Fever, Weakness. Denies: Anorexia, Chills Eyes: Denies: Blurred vision, Double vision, Drainage, Redness HEENT: Denies: Difficulty Hearing, Ear Pain, Eye Pain, Nasal Congestion, Sore Throat Cardiovascular: Denies: Chest Pain, Chest Pressure, Chest Tightness, Heaviness, Light Headedness, Palpitations, Syncope Respiratory: Denies: Cough, Pleuritic Pain, Shortness of Breath, Sputum production, Wheezing Gastrointestinal: Reports: Dyspepsia. Denies: Abdominal Pain, Constipation, Diarrhea, Nausea, Vomiting Genitourinary: Denies: Dysuria, Frequency, Hematuria Musculoskeletal: Reports: Back Pain, Leg Pain. Denies: Arm Pain Skin: Denies: Dryness, Rash Neurological: Denies: Balance problems, Double vision, Change in Speech, Slurred speech, Confusion, Headaches, Incoordination, Numbness Psychiatric: Denies: Anxiety, Depression Endocrine: Denies: Change in Body Habitus, Polydipsia VTE Information - Inpt Only VTE Present on Admission: No VTE Mechan Device Prophylaxis: None VTE Pharm Prophylaxis ordered?: Yes Patient Problems: Active and Suspected Problems (Last Updated 12/27/18 @ 07:53 by Ruben Sandoval DO) Intractable left lower back pain (Acute) Acute cystitis (Acute) - Physical Exam General: Alert, Oriented x3, Cooperative, - - He is in mild to moderate pain. HEENT: Atraumatic, PERRLA, EOMI, Normocephalic Oral: Moist Mucosa, No Gingival or Mucosal Lesions/ Ulcerations Neck: Supple, No JVD, Negative Carotid Bruits, Trachea Midline, Thyroid Normal Size and Texture Lungs: Clear to auscultation, No rhonchi, No wheeze, No rales, Diminished Cardiovascular: Regular rate, Regular Rhythm, Normal S1, Normal S2, PMI Normal, Tachycardic Abdomen: Bowel Sounds Present, Soft, Non Tender, Non-Distended, No Hepato-splenomegaly Extremities: No clubbing, No cyanosis, No edema Skin: No rashes, No breakdown Lymphatic: No Cervical, Supraclavicular, or Inguinal Adenopathy Neurological: Cranial nerves II-XII grossly intact, - - Patient unable to move lower extremities because of pain. Psych/Mental Status: Normal Affect, Appropriate, Alert and oriented to time, place, person, mood and affect Vital Signs Temp Pulse Resp BP Pulse Ox 102.7 F H 106 H 22 H 178/104 H 94 12/28/18 18:37 12/28/18 19:00 12/28/18 19:00 12/28/18 19:00 12/28/18 19:23 Oxygen Flow Rate (L/min) 2 Oxygen Delivery Method Nasal Cannula Weight: 378 lb Body Mass Index (BMI) 55.7 Laboratory Tests Past 24 Hrs 12/28/18 12/28/18 12/28/18 17:02 17:02 17:03 WBC 9.8 RBC 4.25 L Hgb 13.2 Hct 39.2 L MCV 92.2 MCH 31.1 MCHC 33.7 RDW 13.6 RDW Differential 45.3 H Plt Count 222 MPV 10.6 Immature Gran % (Auto) 0.100 Neut % (Auto) 79.3 H Lymph % (Auto) 6.8 L Armstrong % (Auto) 13.5 H Eos % (Auto) 0.2 Baso % (Auto) 0.1 Absolute Neuts (auto) 7.8 H Absolute Lymphs (auto) 0.67 L Total Counted Not Reportable Sodium 133 L Potassium 4.2 Chloride 97 L Carbon Dioxide 30.0 Anion Gap 6 BUN 18 Creatinine 1.19 Estim Creat Clear Calc 67.66 Est GFR (MDRD) Af Amer 81 Est GFR (MDRD) Non-Af 67 BUN/Creatinine Ratio 15.1 Glucose 114 H Lactic Acid 1.5 Calcium 8.3 L Total Bilirubin 0.60 AST 42 H ALT 61 Alkaline Phosphatase 123 H Total Protein 7.3 Albumin 2.8 L Globulin 4.5 H Albumin/Globulin Ratio 0.6 L Urine Color Urine Clarity Urine pH Ur Specific [place] Urine Protein Urine Glucose (UA) Urine Ketones Urine Occult Blood Urine Nitrite Urine Bilirubin Urine Urobilinogen Ur Leukocyte Esterase Urine RBC Urine WBC Ur Squamous Epith Cells Urine Bacteria Urine Mucus 12/28/18 17:20 WBC RBC Hgb Hct MCV MCH MCHC RDW RDW Differential Plt Count MPV Immature Gran % (Auto) Neut % (Auto) Lymph % (Auto) Armstrong % (Auto) Eos % (Auto) Baso % (Auto) Absolute Neuts (auto) Absolute Lymphs (auto) Total Counted Sodium Potassium Chloride Carbon Dioxide Anion Gap BUN Creatinine Estim Creat Clear Calc Est GFR (MDRD) Af Amer Est GFR (MDRD) Non-Af BUN/Creatinine Ratio Glucose Lactic Acid Calcium Total Bilirubin AST ALT Alkaline Phosphatase Total Protein Albumin Globulin Albumin/Globulin Ratio Urine Color Yellow Urine Clarity Clear Urine pH 6.5 Ur Specific [place] 1.015 Urine Protein 30 H Urine Glucose (UA) Normal Urine Ketones Negative Urine Occult Blood 25 H Urine Nitrite Positive H Urine Bilirubin Negative Urine Urobilinogen Normal Ur Leukocyte Esterase 25 H Urine RBC 0 SEEN Urine WBC 0-5 SEEN Ur Squamous Epith Cells 0 SEEN Urine Bacteria 2+ Urine Mucus 0 SEEN Clinical Impression(s) from Imaging Studies Chest X-Ray 12/28/18 16:39 IMPRESSION: Normal x-ray examination of the chest. Electronically Signed: Royal Celis MD at 17:02 EDT Tel , Service support , Abdomen/Pelvis CT 12/28/18 17:45 IMPRESSION: Left psoas muscle enlargement and adjacent retroperitoneal fatty stranding without evidence of adjacent ureter obstruction, psoas abscess, distinct hemorrhage, or ureter stone. Differential includes psoas myositis, psoas strain and early retroperitoneal fibrosis. Consider short interval CT follow-up in 4-8 weeks. Electronically Signed: Royal Celis MD at 18:32 EDT Tel , Service support , Assessment/Plan All Active Problems (Last Updated 12/27/18 @ 07:53 by Ruben Sandoval DO) Intractable left lower back pain (Acute) Acute cystitis (Acute) Muscle tear (Acute) This is a 58 years old male patient referred back to the ED from the assisted after he was discharged from the hospital today because of fever, found to have probable acute cystitis, intractable left lower back pain due to left psoas muscle enlargement/injury/tear and is being admitted for treatment. #1 probable acute cystitis: Patient is febrile and tachycardic but also he could be tachycardic because of the pain. Lactic acid is normal. Urinalysis reviewed. Blood and urine culture sent. Chest x-ray showed no acute findings. Plan: Admit to [facility] floor, telemetry monitoring, follow urine and blood cultures, start IV Rocephin, repeat CBC and BMP tomorrow morning, Tylenol PRN, IV fluids, IV antiemetics, PT OT evaluation and treatment. #2 intractable left lower back pain/left psoas muscle enlargement/injury/tear: CT scan abdomen and pelvis with IV contrast revealed left psoas muscle enlargement with adjacent to the peritoneal fatty stranding without evidence of abscess, hemorrhage or ureteral stones. Patient has been having severe pain, not able to ambulate because of painful movement. Plan: IV Dilaudid as needed, OxyIR as needed, start prednisone to treat acute inflammation, laxatives, PT OT evaluation and treatment. #3 hypertension: Blood pressure is highly elevated. Apparently, patient did have a history of hypertension but he is not taking medication. Plan: Start Norvasc 10 mg p.o. daily, change lisinopril to 20 mg p.o. daily, IV hydralazine PRN. #4 hypothyroidism: TSH was normal few days ago. He is not on supplement. #5 DVT prophylaxis: Subcu Lovenox. This note was generated with [employer] dictation software. It may contain incorrect words, spelling, and punctuation that were not noted in checking the note before signing. Code Visit Inpatient E&M: 72924 Init Hosp L3
[2018-12-28] MEDS: hydrALAZINE 20 MG/ML Vial 10 MG IV (20:51)
[2018-12-28] MEDS: Magnesium Hydroxide 30 ML UDC PO (20:58)
[2018-12-28] MEDS: Pantoprazole Sodium 40 MG Tablet PO (20:59)
[2018-12-28] MEDS: predniSONE 20 MG Tablet 60 MG PO (20:59)
[2018-12-28] MEDS: oxyCODONE 5 MG Tablet 10 MG PO (21:00)
[2018-12-28] MEDS: Senna Tablet 2 TABLET PO (21:00)
[2018-12-29] VITALS (13 sets, daily range): BP systolic 155–185; BP diastolic 95–101; PULSE 80–102; RESP 16–20; TEMP 36.4–37.2; O2SAT 93–98
[2018-12-29] MEDS: 0.9% Normal Saline 1,000 ML 125 ML IV ×2 (00:05→08:02)
--- NOTE | 2018-12-29 05:54 | NURSING ---
Patient needs to have bed alarm set. He got up without assistance. After fall prevention education, bed alarm was set. Two hours later patient set the bed alarm off trying to get up on his own again. Patient educated again. Needs reinforcement.
[2018-12-29 06:27] LABS: Absolute Lymphocyte Count 0.54 X10^3/ul (0.83-4.51); Absolute Neutrophil Count 9.3 X10^3/uL (2.0-7.7); Basophil# 0.01 X10^3/uL; Basophil% 0.1 % (0-1); Hematocrit 43.5 % (40-54); Hemoglobin 14.3 g/dl (13.0-16.5); Lymphocyte # 0.54 X10^3/ul (4.0); Lymphocyte % 5.2 % (19-41); Mean Corp Hgb Conc 32.9 g/gl (32-36); Mean Corpuscular Hgb 30.2 pg (27.0-32.0); Mean Platelet Vol. 10.8 fl (6.2-12.0); Monocyte# 0.49 X10^3/uL; Monocyte% 4.7 % (0-10); Neutrophil # 9.29 X10^3/uL (2.7-7.7); Neutrophil % 89.7 % (47-70); Platelet Count 236 K/mm3 (150-450); RBC Distribution Width CV 13.5 % (11.6-14.6); RBC Distribution Width SD 44.9 fl (35.1-43.9); Red Blood Count 4.73 M/mm3 (4.6-6.2); White Blood Count 10.4 K/mm3 (4.4-11.0)
[2018-12-29 06:31] LABS: Differential Indicated SCAN CRITERIA MET; POSITIVE COUNT NO; POSITIVE DIFFERENTIAL YES; POSITIVE MORPHOLOGY NO
[2018-12-29 06:33] LABS: Anion Gap 7 (5-15); BUN 17 mg/dL (7-18); BUN/Creat Ratio 13.6 RATIO (10-20); Calcium,Total 8.9 mg/dL (8.5-10.1); Chloride 100 mmol/L (98-107); Creatinine, Serum 1.25 mg/dL (0.70-1.30); EST Glomerular Filtration Rate 63 mL/min (>60); Est Glom Filt Rate - Afr Amer 76 mL/min (>60); Estimated Creatinine Clearance 62.32 ml/min; Glucose 219 mg/dL (74-106); Potassium 4.4 mmol/L (3.5-5.1); Sodium Level 136 mmol/L (136-145)
[2018-12-29] MEDS: Acetaminophen 325 MG Tablet 650 MG PO (06:36)
[2018-12-29 06:52] LABS: Differential Comment SCANNED
[2018-12-29] MEDS: Pantoprazole Sodium 40 MG Tablet PO ×2 (07:49→21:56)
[2018-12-29] MEDS: predniSONE 20 MG Tablet 60 MG PO (07:49)
[2018-12-29] MEDS: Enoxaparin 40 MG/0.4 ML Syringe SC (07:49)
[2018-12-29] MEDS: amLODIPine 10 MG Tablet PO (07:50)
[2018-12-29] MEDS: Lisinopril 20 MG Tablet PO (07:50)
[2018-12-29] MEDS: Magnesium Hydroxide 30 ML UDC PO (07:50)
[2018-12-29] MEDS: Senna Tablet 2 TABLET PO (07:50)
--- NOTE | 2018-12-29 09:00 | CASEMGMT ---
Social Work Note Pt just discharged to [facility] yesterday, was admitted again for fever. Pt and pt's Lenard requesting to speak to this worker. YUSEF met with pt and Lenard. YUSEF introduced self and role at [facility]. Pt states I don't remember talking to you yesterday. Pt and Lenard states frustration with pt being discharge to [facility] yesterday when he had a fever and that Lenard was never updated. YUSEF apologized to Lenard but did inform Lenard that pt is alert and orientated, was sitting up in the chair yesterday, rating his pain of a 1 out of 10 when this worker confirmed discharge plans with pt and that pt stated he was going to call his to update her. Lenard states pt can't remember what he tells people, couldn't even remember talking to a manager social work. YUSEF again apologized to Lenard and pt, stating that this worker was unaware of any memory loss and again reiterated that pt was alert and orientated x4, sitting up in chair, rating pain 1 out of 10 when discharge plans were confirmed and pt had stated he was going to call his to update her. Lenard states the only update I got was a text saying he was being discharged and waiting transportation. YUSEF offered patient advocate phone number to pt and Lenard, both were agreeable to calling. 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 Pt and Lenard continue to state frustration with being discharged with a fever and that pt had sever pain with being transported to [facility] and back to [facility]. YUSEF again apologized for how things were handled. Lenard states that pt will need SNF again and was informed about TCU at [facility] and both Lenard and pt are agreeable to TCU. YUSEF explained referral process and that again pt will need pre-cert. Lenard asks to be updated on everything including SNF and medical things. YUSEF informed Lenard that this worker will update her in regards to SNF and will update staff to give her an update on medical things. Lenard and pt states understanding. YUSEF placed a call to [facility] in TCU, provided referral. [facility] is able to accept, will hold up on starting pre-cert as blood culture are still pending. YUSEF placed a call to pt's Lenard, updated her that TCU is able to accept pt and pre-cert will need to be obtained. YUSEF again apologized to Lenard for miscommunication. Lenard states understanding, thanked this worker for the call. YUSEF received call from Sonja at [facility]. YUSEF updated Sonja that pt is going to different SNF now, Sonja states she will update MMO. Plan: TCU pending pre-cert Shamika Bright [employer], [employer]BI[employer] DEVICE ENGINEER
--- NOTE | 2018-12-29 09:24 | PHA.PHARE_ITS ---
Consult Pharmacy has been consulted to manage selected antiobiotic: Vancomycin Type of Consult: New start Suspected Infection: Other Prior Doses of Antibiotics Received/Current Regimen: None Labs: Sodium 136 mmol/L (136-145) 12/29/18 05:14 Potassium 4.4 mmol/L (3.5-5.1) 12/29/18 05:14 Chloride 100 mmol/L (98-107) 12/29/18 05:14 Carbon Dioxide 29.0 mmol/L (21.0-32.0) 12/29/18 05:14 Anion Gap 7 (5-15) 12/29/18 05:14 BUN 17 mg/dL (7-18) 12/29/18 05:14 Creatinine 1.25 mg/dL (0.70-1.30) 12/29/18 05:14 Est GFR (MDRD) Af Amer 76 mL/min (>60) 12/29/18 05:14 Est GFR (MDRD) Non-Af 63 mL/min (>60) 12/29/18 05:14 BUN/Creatinine Ratio 13.6 RATIO (10-20) 12/29/18 05:14 Glucose 219 mg/dL (74-106) H 12/29/18 05:14 Microbiology: Microbiology 12/28/18 17:07 Blood Culture (Wb) - Anticubital Left Blood Culture - Preliminary 12/28/18 17:00 Blood Culture (Wb) - Anticubital Right Blood Culture - Preli minary Weight used for dosin kg Estimated Creatinine Clearance: 62ml/min Goal Trough: 15-20 mcg/mL Pharmacy Plan for Drug Dosin58 year old male with an actual body weight of 172kg and a bmi of 56.8. Dosing weight is based off of lean body weight which is 68kg. Initial SrCr of 1.25 and a CrCl of 62 (based off dosing weight). Goal trough for the pt is ordered to be 15-20. Pt will be given an initial dose of 15mg/kg or 2000mg of Vancomycin x1 to start 12/29/18 at 0830 Dose recommendation is Vancomycin 750mg IV q12h to start 12/29/18 at 2000. Trough to be drawn 12/31/18 at 1930 Pharmacy Service will continue to monitor and adjust dosing as required. Follow-Up Labs: Trough Vancomycin - 12/31/18 at 1930
[2018-12-29] MEDS: hydrALAZINE 20 MG/ML Vial 10 MG IV (10:56)
[2018-12-29] MEDS: oxyCODONE 5 MG Tablet 10 MG PO ×2 (14:02→20:43)
--- NOTE | 2018-12-29 14:02 | PCM.PN.HOSP ---
Patient Problems: Active and Suspected Problems (Last Updated 12/27/18 @ 07:53 by Ruben Sandoval DO) Intractable left lower back pain (Acute) Acute cystitis (Acute) Subjective: Still with back pain. Upset about being transferred back immediately after being discharged back to the hospital. Dysuria improved. Has had edema in LE, 1 week ago had weeping from LE, when he wiped it off, would remove skin along with it leaving sores, which subsequently scabbed over. Vitals/I&O's: Vital Signs Temp Pulse Resp BP Pulse Ox 36.8 C 102 H 18 172/101 H 95 12/29/18 10:58 12/29/18 12:08 12/29/18 10:58 12/29/18 10:58 12/29/18 10:58 Oxygen Flow Rate (L/min) 2 Oxygen Delivery Method Room Air Weight: 171.912 kg Body Mass Index (BMI) 56.7 Intake and Output for Last 24 Hours 12/27/18 12/28/18 12/29/18 23:59 23:59 23:59 Intake Total 2493 / 2493 Output Total 550 / 550 Balance 1942 / 1942 General: Alert, No apparent distress HEENT: Atraumatic, Normocephalic Oral: Moist Mucosa, No Gingival or Mucosal Lesions/ Ulcerations Neck: No Nodes, Thyroid Normal Size and Texture Lungs: Clear to auscultation, Normal air movement, No rhonchi, No wheeze Cardiovascular: Regular rate, Regular Rhythm, Normal S1, Normal S2, No murmurs Abdomen: Bowel Sounds Present, Soft, Non Tender, Non-Distended, No Hepato-splenomegaly Extremities: No Calf Tenderness, Edema Skin: - - scabbed lesion all over LE Psych/Mental Status: Normal Affect, Appropriate Microbiology Past 72 Hours 12/28/18 17:20 Urine Catheter - Catheter Urine Culture - Preliminary Staphylococcus species 12/28/18 17:00 Blood Culture (Wb) - Anticubital Right Blood Culture - Preliminary 12/28/18 17:07 Blood Culture (Wb) - Anticubital Left Blood Culture - Preliminary Laboratory Results 12/28/18 17:02: WBC 9.8, RBC 4.25 L, Hgb 13.2, Hct 39.2 L, MCV 92.2, MCH 31.1, MCHC 33.7, RDW 13.6, RDW Differential 45.3 H, Plt Count 222, MPV 10.6, Immature Gran % (Auto) 0.100, Neut % (Auto) 79.3 H, Lymph % (Auto) 6.8 L, [place] % (Auto) 13.5 H, Eos % (Auto) 0.2, Baso % (Auto) 0.1, Absolute Neuts (auto) 7.8 H, Absolute Lymphs (auto) 0.67 L, Total Counted Not Reportable 12/28/18 17:02: Sodium 133 L, Potassium 4.2, Chloride 97 L, Carbon Dioxide 30.0, Anion Gap 6, BUN 18, Creatinine 1.19, Estim Creat Clear Calc 67.66, Est GFR (MDRD) Af Amer 81, Est GFR (MDRD) Non-Af 67, BUN/Creatinine Ratio 15.1, Glucose 114 H, Calcium 8.3 L, Total Bilirubin 0.60, AST 42 H, ALT 61, Alkaline Phosphatase 123 H, Total Protein 7.3, Albumin 2.8 L, Globulin 4.5 H, Albumin/Globulin Ratio 0.6 L 12/28/18 17:03: Lactic Acid 1.5 12/28/18 17:20: Urine Color Yellow, Urine Clarity Clear, Urine pH 6.5, Ur Specific [place] 1.015, Urine Protein 30 H, Urine Glucose (UA) Normal, Urine Ketones Negative, Urine Occult Blood 25 H, Urine Nitrite Positive H, Urine Bilirubin Negative, Urine Urobilinogen Normal, Ur Leukocyte Esterase 25 H, Urine RBC 0 SEEN, Urine WBC 0-5 SEEN, Ur Squamous Epith Cells 0 SEEN, Urine Bacteria 2+, Urine Mucus 0 SEEN 12/29/18 05:14: Sodium 136, Potassium 4.4, Chloride 100, Carbon Dioxide 29.0, Anion Gap 7, BUN 17, Creatinine 1.25, Estim Creat Clear Calc 62.32, Est GFR (MDRD) Af Amer 76, Est GFR (MDRD) Non-Af 63, BUN/Creatinine Ratio 13.6, Glucose 219 H, Calcium 8.9 12/29/18 05:14: WBC 10.4, RBC 4.73, Hgb 14.3, Hct 43.5, MCV 92.0, MCH 30.2, MCHC 32.9, RDW 13.5, RDW Differential 44.9 H, Plt Count 236, MPV 10.8, Immature Gran % (Auto) 0.300, Neut % (Auto) 89.7 H, Lymph % (Auto) 5.2 L, [place] % (Auto) 4.7, Eos % (Auto) 0.0, Baso % (Auto) 0.1, Absolute Neuts (auto) 9.3 H, Absolute Lymphs (auto) 0.54 L, Total Counted Not Reportable, Differential Comment SCANNED Current Medications Acetaminophen (Tylenol) 650 mg PO Q6H PRN PRN PRN Reason: Mild Pain (1-3)/Temp > 100.7 F Last Admin: 12/29/18 06:36 Dose: 650 mg Al Hydroxide/Mg Hydroxide (Mylanta Ii) 30 ml PO Q6H PRN PRN PRN Reason: HEARTBURN OR INDIGESTION Albuterol Sulfate (Ventolin Aerosols) 2.5 mg INHALATION Q4H PRN PRN PRN Reason: Shortness of breath, wheezing Amlodipine Besylate (Norvasc) 10 mg PO DAILY [facility] Last Admin: 12/29/18 07:50 Dose: 10 mg Cyclobenzaprine HCl (Flexeril) 10 mg PO TID PRN PRN PRN Reason: MUSCLE SPASM Last Admin: 12/28/18 21:00 Dose: 10 mg Enoxaparin Sodium (Lovenox) 40 mg SC DAILY [facility] Last Admin: 12/29/18 07:49 Dose: 40 mg Hydralazine HCl (Apresoline Iv) 10 mg IV Q6H PRN PRN PRN Reason: for SBP> 160 Last Admin: 12/29/18 10:56 Dose: 10 mg Hydromorphone HCl (Dilaudid Inj) 1 - 2 mg IV Q4H PRN PRN PRN Reason: Severe pain (7-10/10) Sodium Chloride () 1,000 mls @ 125 mls/hr IV .Q8H [facility] Stop: 12/29/18 15:59 Last Admin: 12/29/18 08:02 Dose: 125 mls/hr Ceftriaxone Sodium 2 gm/ (Sodium Chloride) 50 mls @ 100 mls/hr IV Q24 [facility] Last Admin: 12/29/18 12:18 Dose: 100 mls/hr Vancomycin IV Pharmacy to Dose (1 ea/ Sodium Chloride) 500 mls @ 250 mls/hr IV X1 PRN; Protocol PRN Reason: Rx to Dose Vancomycin HCl 750 mg/ Sodium (Chloride) 265 mls @ 250 mls/hr IV Q12H [facility] Lisinopril (Zestril) 20 mg PO DAILY [facility] Last Admin: 12/29/18 07:50 Dose: 20 mg Magnesium Hydroxide (Milk Of Magnesia) 30 ml PO DAILY [facility] Last Admin: 12/29/18 07:50 Dose: 30 ml Ondansetron HCl (Zofran) 4 mg IV Q8H PRN PRN PRN Reason: NAUSEA/VOMITING Oxycodone HCl (Oxyir) 10 mg PO Q4H PRN PRN PRN Reason: Moderate Pain (4-6/10) Last Admin: 12/28/18 21:00 Dose: 10 mg Pantoprazole Sodium (Protonix) 40 mg PO BID [facility] Last Admin: 12/29/18 07:49 Dose: 40 mg Senna (Senokot) 2 tablet PO BID [facility] Last Admin: 12/29/18 07:50 Dose: 2 tablet Sodium Chloride () 5 - 15 ml IV UD PRN PRN Reason: SALINE FLUSH Medical Necessity - Tobacco Use Smoking Status: Never smoker Assessment/Plan All Active Problems (Last Updated 12/27/18 @ 07:53 by Ruben Sandoval DO) Intractable left lower back pain (Acute) Acute cystitis (Acute) Muscle tear (Acute) 1. Sepsis POA 2/2 bacteremia, possible UTI supportive mgmt 2. Bacteremia unclear source repeat BCx pending TTE unremarkable on Vanc ID consult 3. Psoas muscle tear no abscess on CT ?myositis continue abx 4. abnormal UA I am not convinced there is a UTI on CTX UCx showing staph sp. 5. Edema: concern for pulmonary HTN, given untreated RO start lasix 6. HTN still elevated continue lisinopril 7. VTE prophylaxis: LMWH Greater than 45 minutes of which greater than 50% the time was discussing with the patient and his about the events from 12/28. Explained I did his discharge paperwork hours later after I had seen him and did not check his vitals at that time. Had I known he was febrile, I would not have discharged him, however, I was not informed by nursing. I apologized for not looking at his vitals prior to discharge. I explained that we will be further evaluating the bacteremia. Code Visit Inpatient E&M: 58169 Subs Hosp L3
--- NOTE | 2018-12-29 14:06 | PN_ITS ---
Patient Problems: Active and Suspected Problems (Last Updated 12/27/18 @ 07:53 by Ruben Sandoval DO) Intractable left lower back pain (Acute) Acute cystitis (Acute) Subjective: Still with back pain. Upset about being transferred back immediately after being discharged back to the hospital. Dysuria improved. Has had edema in LE, 1 week ago had weeping from LE, when he wiped it off, would remove skin along with it leaving sores, which subsequently scabbed over. Vitals/I&O's: Vital Signs Temp Pulse Resp BP Pulse Ox 36.8 C 102 H 18 172/101 H 95 12/29/18 10:58 12/29/18 12:08 12/29/18 10:58 12/29/18 10:58 12/29/18 10:58 Oxygen Flow Rate (L/min) 2 Oxygen Delivery Method Room Air Weight: 171.912 kg Body Mass Index (BMI) 56.7 Intake and Output for Last 24 Hours 12/27/18 12/28/18 12/29/18 23:59 23:59 23:59 Intake Total 2493 / 2493 Output Total 550 / 550 Balance 1942 / 1942 General: Alert, No apparent distress HEENT: Atraumatic, Normocephalic Oral: Moist Mucosa, No Gingival or Mucosal Lesions/ Ulcerations Neck: No Nodes, Thyroid Normal Size and Texture Lungs: Clear to auscultation, Normal air movement, No rhonchi, No wheeze Cardiovascular: Regular rate, Regular Rhythm, Normal S1, Normal S2, No murmurs Abdomen: Bowel Sounds Present, Soft, Non Tender, Non-Distended, No Hepato- splenomegaly Extremities: No Calf Tenderness, Edema Skin: - - scabbed lesion all over LE Psych/Mental Status: Normal Affect, Appropriate Microbiology Past 72 Hours 12/28/18 17:20 Urine Catheter - Catheter Urine Culture - Preliminary Staphylococcus species 12/28/18 17:00 Blood Culture (Wb) - Anticubital Right Blood Culture - Preliminary 12/28/18 17:07 Blood Culture (Wb) - Anticubital Left Blood Culture - Preliminary Laboratory Results 12/28/18 17:02: WBC 9.8, RBC 4.25 L, Hgb 13.2, Hct 39.2 L, MCV 92.2, MCH 31.1, MCHC 33.7, RDW 13.6, RDW Differential 45.3 H, Plt Count 222, MPV 10.6, Immature Gran % (Auto) 0.100, Neut % (Auto) 79.3 H, Lymph % (Auto) 6.8 L, [place] % (Auto) 13.5 H, Eos % (Auto) 0.2, Baso % (Auto) 0.1, Absolute Neuts (auto) 7.8 H, Absolute Lymphs (auto) 0.67 L, Total Counted Not Reportable 12/28/18 17:02: Sodium 133 L, Potassium 4.2, Chloride 97 L, Carbon Dioxide 30.0, Anion Gap 6, BUN 18, Creatinine 1.19, Estim Creat Clear Calc 67.66, Est GFR (MDRD) Af Amer 81, Est GFR (MDRD) Non-Af 67, BUN/Creatinine Ratio 15.1, Glucose 114 H, Calcium 8.3 L, Total Bilirubin 0.60, AST 42 H, ALT 61, Alkaline Phosphatase 123 H, Total Protein 7.3, Albumin 2.8 L, Globulin 4.5 H, Albumin/Globulin Ratio 0.6 L 12/28/18 17:03: Lactic Acid 1.5 12/28/18 17:20: Urine Color Yellow, Urine Clarity Clear, Urine pH 6.5, Ur Specific [place] 1.015, Urine Protein 30 H, Urine Glucose (UA) Normal, Urine Ketones Negative, Urine Occult Blood 25 H, Urine Nitrite Positive H, Urine Bilirubin Negative, Urine Urobilinogen Normal, Ur Leukocyte Esterase 25 H, Urine RBC 0 SEEN, Urine WBC 0-5 SEEN, Ur Squamous Epith Cells 0 SEEN, Urine Bacteria 2+, Urine Mucus 0 SEEN 12/29/18 05:14: Sodium 136, Potassium 4.4, Chloride 100, Carbon Dioxide 29.0, Anion Gap 7, BUN 17, Creatinine 1.25, Estim Creat Clear Calc 62.32, Est GFR (MDRD) Af Amer 76, Est GFR (MDRD) Non-Af 63, BUN/Creatinine Ratio 13.6, Glucose 219 H, Calcium 8.9 12/29/18 05:14: WBC 10.4, RBC 4.73, Hgb 14.3, Hct 43.5, MCV 92.0, MCH 30.2, MCHC 32.9, RDW 13.5, RDW Differential 44.9 H, Plt Count 236, MPV 10.8, Immature Gran % (Auto) 0.300, Neut % (Auto) 89.7 H, Lymph % (Auto) 5.2 L, [place] % (Auto) 4.7, Eos % (Auto) 0.0, Baso % (Auto) 0.1, Absolute Neuts (auto) 9.3 H, Absolute Lymphs (auto) 0.54 L, Total Counted Not Reportable, Differential Comment SCANNED Current Medications Acetaminophen (Tylenol) 650 mg PO Q6H PRN PRN PRN Reason: Mild Pain (1-3)/Temp > 100.7 F Last Admin: 12/29/18 06:36 Dose: 650 mg Al Hydroxide/Mg Hydroxide (Mylanta Ii) 30 ml PO Q6H PRN PRN PRN Reason: HEARTBURN OR INDIGESTION Albuterol Sulfate (Ventolin Aerosols) 2.5 mg INHALATION Q4H PRN PRN PRN Reason: Shortness of breath, wheezing Amlodipine Besylate (Norvasc) 10 mg PO DAILY [facility] Last Admin: 12/29/18 07:50 Dose: 10 mg Cyclobenzaprine HCl (Flexeril) 10 mg PO TID PRN PRN PRN Reason: MUSCLE SPASM Last Admin: 12/28/18 21:00 Dose: 10 mg Enoxaparin Sodium (Lovenox) 40 mg SC DAILY [facility] Last Admin: 12/29/18 07:49 Dose: 40 mg Hydralazine HCl (Apresoline Iv) 10 mg IV Q6H PRN PRN PRN Reason: for SBP> 160 Last Admin: 12/29/18 10:56 Dose: 10 mg Hydromorphone HCl (Dilaudid Inj) 1 - 2 mg IV Q4H PRN PRN PRN Reason: Severe pain (7-10/10) Sodium Chloride () 1,000 mls @ 125 mls/hr IV .Q8H [facility] Stop: 12/29/18 15:59 Last Admin: 12/29/18 08:02 Dose: 125 mls/hr Ceftriaxone Sodium 2 gm/ (Sodium Chloride) 50 mls @ 100 mls/hr IV Q24 [facility] Last Admin: 12/29/18 12:18 Dose: 100 mls/hr Vancomycin IV Pharmacy to Dose (1 ea/ Sodium Chloride) 500 mls @ 250 mls/hr IV X1 PRN; Protocol PRN Reason: Rx to Dose Vancomycin HCl 750 mg/ Sodium (Chloride) 265 mls @ 250 mls/hr IV Q12H [facility] Lisinopril (Zestril) 20 mg PO DAILY [facility] Last Admin: 12/29/18 07:50 Dose: 20 mg Magnesium Hydroxide (Milk Of Magnesia) 30 ml PO DAILY [facility] Last Admin: 12/29/18 07:50 Dose: 30 ml Ondansetron HCl (Zofran) 4 mg IV Q8H PRN PRN PRN Reason: NAUSEA/VOMITING Oxycodone HCl (Oxyir) 10 mg PO Q4H PRN PRN PRN Reason: Moderate Pain (4-6/10) Last Admin: 12/28/18 21:00 Dose: 10 mg Pantoprazole Sodium (Protonix) 40 mg PO BID [facility] Last Admin: 12/29/18 07:49 Dose: 40 mg Senna (Senokot) 2 tablet PO BID [facility] Last Admin: 12/29/18 07:50 Dose: 2 tablet Sodium Chloride () 5 - 15 ml IV UD PRN PRN Reason: SALINE FLUSH Medical Necessity - Tobacco Use Smoking Status: Never smoker Assessment/Plan All Active Problems (Last Updated 12/27/18 @ 07:53 by Ruben Sandoval DO) Intractable left lower back pain (Acute) Acute cystitis (Acute) Muscle tear (Acute) 1. Sepsis * POA * 2/2 bacteremia, possible UTI * supportive mgmt 2. Bacteremia * unclear source * repeat BCx pending * TTE unremarkable * on Vanc * ID consult 3. Psoas muscle tear * no abscess on CT * ?myositis * continue abx 4. abnormal UA * I am not convinced there is a UTI * on CTX * UCx showing staph sp. 5. Edema: * concern for pulmonary HTN, given untreated RO * start lasix 6. HTN * still elevated * continue lisinopril 7. VTE prophylaxis: LMWH Greater than 45 minutes of which greater than 50% the time was discussing with the patient and his about the events from 12/28. Explained I did his discharge paperwork hours later after I had seen him and did not check his vitals at that time. Had I known he was febrile, I would not have discharged him, however, I was not informed by nursing. I apologized for not looking at his vitals prior to discharge. I explained that we will be further evaluating the bacteremia. Code Visit Inpatient E&M: 88814 Subs Hosp L3
--- NOTE | 2018-12-29 16:38 | CON.PCM_ITS ---
Problem List (1) MSSA bacteremia Status: Acute Reason for Consult: bacteremia Consulted by: Dr. Sandoval History of Present Illness: The patient is a 58 year old M who presented with several weeks of worsening L sided lower back pain, acute worsening over a day or two, got admitted, imaging showed psoas tear. Reports a week ago with BLE edema which turned into redness, blistering, pain. Scabs mostly healed. Also with bleeding from ulcer on R heel, also somewhat improved. Having fever and chills past week. No prior h/o MRSA. Admitted, called back to hospital with fever. Now on vanc/ceftriaxone, bcx with mssa now on pcr. No other focal joint pain, no hardware in his body. Full ROS performed and neg except as noted above. - Medical History Past Medical History (Chronic Problems): Chronic Problems (Last Updated 12/27/18 @ 07:53 by Ruben Sandoval DO) Hypertension (Chronic) Allergies/Adverse Reactions: Allergies No Known Allergies Allergy (Verified 12/27/18 04:34) Home Medications: Ambulatory Orders Medication Instructions Recorded Albuterol Inhaler [Ventolin Hfa] 1 - 2 puff INHALATION Q4H PRN PRN 08/08/14 #1 inhaler Cyclobenzaprine [Flexeril] 10 mg PO TID PRN #10 tab 12/23/18 Acetaminophen [Tylenol] 1,000 mg PO Q8H 12/28/18 Ibuprofen 600 mg PO 4X/DAY PRN #1 tablet 12/28/18 Lisinopril [Zestril] 10 mg PO DAILY 12/28/18 Oxycodone [Oxyir] 5 mg PO Q6H PRN 3 Days #12 tab 12/28/18 - Social History Tobacco Use: non-smoker Vital Signs Temp Pulse Resp BP Pulse Ox 98.9 F 92 16 163/98 H 96 12/29/18 14:19 12/29/18 14:19 12/29/18 14:19 12/29/18 14:19 12/29/18 14:19 Oxygen Flow Rate (L/min) 2 Oxygen Delivery Method Room Air Weight: 171.9 kg Body Mass Index (BMI) 56.7 Microbiology Past 72 Hours 12/28/18 17:00 Bacteria Detection (PCR) - Final Blood Culture (Wb) - Anticubital Right Staphylococcus aureus Blood Culture - Preliminary 12/28/18 17:20 Urine Culture - Preliminary Urine Catheter - Catheter Staphylococcus species 12/28/18 17:07 Blood Culture - Preliminary Blood Culture (Wb) - Anticubital Left Laboratory Tests Past 24 Hrs 12/28/18 12/28/18 12/28/18 17:02 17:02 17:03 WBC 9.8 RBC 4.25 L Hgb 13.2 Hct 39.2 L MCV 92.2 MCH 31.1 MCHC 33.7 RDW 13.6 RDW Differential 45.3 H Plt Count 222 MPV 10.6 Immature Gran % (Auto) 0.100 Neut % (Auto) 79.3 H Lymph % (Auto) 6.[address] [place] % (Auto) 13.5 H Eos % (Auto) 0.2 Baso % (Auto) 0.1 Absolute Neuts (auto) 7.8 H Absolute Lymphs (auto) 0.67 L Total Counted Not Reportable Differential Comment Sodium 133 L Potassium 4.2 Chloride 97 L Carbon Dioxide 30.0 Anion Gap 6 BUN 18 Creatinine 1.19 Estim Creat Clear Calc 67.66 Est GFR (MDRD) Af Amer 81 Est GFR (MDRD) Non-Af 67 BUN/Creatinine Ratio 15.1 Glucose 114 H Lactic Acid 1.5 Calcium 8.3 L Total Bilirubin 0.60 AST 42 H ALT 61 Alkaline Phosphatase 123 H Total Protein 7.3 Albumin 2.8 L Globulin 4.5 H Albumin/Globulin Ratio 0.6 L Urine Color Urine Clarity Urine pH Ur Specific [place] Urine Protein Urine Glucose (UA) Urine Ketones Urine Occult Blood Urine Nitrite Urine Bilirubin Urine Urobilinogen Ur Leukocyte Esterase Urine RBC Urine WBC Ur Squamous Epith Cells Urine Bacteria Urine Mucus 12/28/18 12/29/18 12/29/18 17:20 05:14 05:14 WBC 10.4 RBC 4.73 Hgb 14.3 Hct 43.5 MCV 92.0 MCH 30.2 MCHC 32.9 RDW 13.5 RDW Differential 44.9 H Plt Count 236 MPV 10.8 Immature Gran % (Auto) 0.300 Neut % (Auto) 89.7 H Lymph % (Auto) 5.[address] [place] % (Auto) 4.7 Eos % (Auto) 0.0 Baso % (Auto) 0.1 Absolute Neuts (auto) 9.3 H Absolute Lymphs (auto) 0.54 L Total Counted Not Reportable Differential Comment SCANNED Sodium 136 Potassium 4.4 Chloride 100 Carbon Dioxide 29.0 Anion Gap 7 BUN 17 Creatinine 1.25 Estim Creat Clear Calc 62.32 Est GFR (MDRD) Af Amer 76 Est GFR (MDRD) Non-Af 63 BUN/Creatinine Ratio 13.6 Glucose 219 H Lactic Acid Calcium 8.9 Total Bilirubin AST ALT Alkaline Phosphatase Total Protein Albumin Globulin Albumin/Globulin Ratio Urine Color Yellow Urine Clarity Clear Urine pH 6.5 Ur Specific [place] 1.015 Urine Protein 30 H Urine Glucose (UA) Normal Urine Ketones Negative Urine Occult Blood 25 H Urine Nitrite Positive H Urine Bilirubin Negative Urine Urobilinogen Normal Ur Leukocyte Esterase 25 H Urine RBC 0 SEEN Urine WBC 0-5 SEEN Ur Squamous Epith Cells 0 SEEN Urine Bacteria 2+ Urine Mucus 0 SEEN - Other Studies Radiology: [] reviewed Other Studies: [] Route of nutrition/ use of supplements: [] Nutritional Intake: [] IV Site: [] Villagran Catheter: [] - Physical Exam General: Alert, Oriented x3, Cooperative, No apparent distress HEENT: Atraumatic, PERRLA, EOMI Neck: Supple, No Nodes Lungs: Clear to auscultation, Normal air movement Cardiovascular: Regular rate, Regular Rhythm, Murmur Abdomen: Soft, Non Tender, Non-Distended, Obese Extremities: Edema Skin: Excoriated - healing scabs on bilateral shinds IV Site: Peripheral, without redness Musculoskeletal: No Tenderness to Palpation of Joints or Extremities Neurological: Cranial nerves II-XII grossly intact - Assessment/Plan Antibiotics: [] Assessment/Plan: [] Active and Suspected Problems (Last Updated 12/27/18 @ 07:53 by Ruben Sandoval DO) Intractable left lower back pain (Acute) Acute cystitis (Acute) sepsis (fever, tachycardia) due to MSSA bacteremia likely skin source. Repeat bcx pending. Echo report pending. Narrow abx to cefazolin. No sign of splinter hemorrhages/janeway/osler on hands or feet. Will follow, thank you.
[2018-12-29] MEDS: Furosemide 40 MG Tablet PO (17:30)
[2018-12-29] MEDS: Cefazolin 2 GM in 0.9% Normal Saline 100 ML IV (21:56)
[2018-12-29] MEDS: 0.9% NaCl Peripheral Flush Adult/Peds IV (21:58)
[2018-12-30] VITALS (9 sets, daily range): BP systolic 143–155; BP diastolic 75–89; PULSE 83–99; RESP 16–18; TEMP 36.7–37.2; O2SAT 95–98
[2018-12-30] MEDS: HYDROmorphone 1 MG/ML Syringe IV ×2 (00:16→06:10)
[2018-12-30] MEDS: oxyCODONE 5 MG Tablet 10 MG PO (04:21)
[2018-12-30] MEDS: Cefazolin 2 GM in 0.9% Normal Saline 100 ML IV ×3 (06:10→21:43)
[2018-12-30 06:19] LABS: Absolute Lymphocyte Count 1.42 X10^3/ul (0.83-4.51); Absolute Neutrophil Count 10.5 X10^3/uL (2.0-7.7); Basophil# 0.01 X10^3/uL; Basophil% 0.1 % (0-1); Eosinophil# 0.05 X10^3/uL; Eosinophils% 0.4 % (0-5); Hematocrit 38.8 % (40-54); Hemoglobin 12.8 g/dl (13.0-16.5); Lymphocyte # 1.42 X10^3/ul (4.0); Lymphocyte % 10.8 % (19-41); Mean Corpuscular Hgb 30.3 pg (27.0-32.0); Mean Corpuscular Volume 91.7 fL (80-94); Mean Platelet Vol. 10.6 fl (6.2-12.0); Monocyte# 1.16 X10^3/uL; Monocyte% 8.8 % (0-10); Neutrophil # 10.49 X10^3/uL (2.7-7.7); Neutrophil % 79.7 % (47-70); Platelet Count 262 K/mm3 (150-450); RBC Distribution Width CV 13.7 % (11.6-14.6); RBC Distribution Width SD 45.9 fl (35.1-43.9); Red Blood Count 4.23 M/mm3 (4.6-6.2); White Blood Count 13.2 K/mm3 (4.4-11.0)
[2018-12-30 06:20] LABS: POSITIVE COUNT NO; POSITIVE DIFFERENTIAL NO; POSITIVE MORPHOLOGY NO
[2018-12-30 06:30] LABS: BUN 18 mg/dL (7-18); Creatinine, Serum 1.03 mg/dL (0.70-1.30); Estimated Creatinine Clearance 75.63 ml/min; Glucose 141 mg/dL (74-106)
[2018-12-30 06:31] LABS: Anion Gap 8 (5-15); BUN/Creat Ratio 17.5 RATIO (10-20); Calcium,Total 8.7 mg/dL (8.5-10.1); Chloride 101 mmol/L (98-107); EST Glomerular Filtration Rate 79 mL/min (>60); Est Glom Filt Rate - Afr Amer 95 mL/min (>60); Sodium Level 135 mmol/L (136-145)
--- NOTE | 2018-12-30 09:24 | CASEMGMT ---
Addendum entered by Shamika Bright 12/30/18 13:02: Green sheet on chart in the event pre-cert is obtained and pt is able to discharge to TCU over the weekend. Original Note: Addendum entered by Shamika Bright 12/30/18 13:01: YUSEF placed a call to pt's Lenard, updated her that pre-cert has been started, and if pre-cert is not obtained today pt will be at [facility] through weekend waiting for pre-cert. Lenard states understanding. Original Note: Social Work Note SW spoke with Physician who states pre-cert can be started. YUSEF spoke with Mariann in TCU who will submit for pre-cert. Plan: TCU pending pre-cert Shamika Bright [employer], [employer]
--- NOTE | 2018-12-30 09:54 | PCM.PN.HOSP ---
Patient Problems: Active and Suspected Problems (Last Updated 12/27/18 @ 07:53 by Ruben Sandoval DO) MSSA bacteremia (Acute) Subjective: Up in chair complaining of severe back pain. Denies and radicular symptoms, nor bladder nor bowel incontinence. Requesting MRI. States pain in back is due to worsening of his chronic back pain. Vitals/I&O's: Vital Signs Temp Pulse Resp BP Pulse Ox 36.7 C 94 18 152/89 H 98 12/30/18 08:11 12/30/18 08:11 12/30/18 08:11 12/30/18 08:11 12/30/18 08:11 Oxygen Flow Rate (L/min) 2 Oxygen Delivery Method Room Air Weight: 171.9 kg Body Mass Index (BMI) 56.7 Intake and Output for Last 24 Hours 12/28/18 12/29/18 12/30/18 23:59 23:59 23:59 Intake Total 3093 / 3093 1200 / 1200 Output Total 550 / 550 600 / 600 Balance 2543 / 2543 600 / 600 General: Alert, - - up in chair. uncomfortable. HEENT: Atraumatic, Normocephalic Neck: No Nodes, - - thick neck Lungs: Clear to auscultation, Normal air movement, No rhonchi, No wheeze Cardiovascular: Regular rate, Regular Rhythm, Normal S1, Normal S2 Abdomen: Bowel Sounds Present, Soft, Non Tender, Non-Distended Extremities: No Calf Tenderness, Edema Skin: - - scabbed over superficial wounds over legs. no cellulitis. Musculoskeletal: No Tenderness to Palpation of Joints or Extremities, No Muscle Wasting, - - lumbar paraspinal muscle tenderness. Psych/Mental Status: Normal Affect, Appropriate Microbiology Past 72 Hours 12/29/18 07:42 Blood Culture (Wb) - Left Hand Blood Culture - Preliminary 12/29/18 07:33 Blood Culture (Wb) - Anticubital Right Blood Culture - Preliminary 12/28/18 17:07 Blood Culture (Wb) - Anticubital Left Blood Culture - Final Staphylococcus aureus 12/28/18 17:00 Blood Culture (Wb) - Anticubital Right Bacteria Detection (PCR) - Final Staphylococcus aureus 12/28/18 17:00 Blood Culture (Wb) - Anticubital Right Blood Culture - Preliminary Staphylococcus aureus 12/28/18 17:20 Urine Catheter - Catheter Urine Culture - Preliminary Staphylococcus species Laboratory Results 12/30/18 : WBC 13.2 H, RBC 4.23 L, Hgb 12.8 L, Hct 38.8 L, MCV 91.7, MCH 30.3, MCHC 33.0, RDW 13.7, RDW Differential 45.9 H, Plt Count 262, MPV 10.6, Immature Gran % (Auto) 0.200, Neut % (Auto) 79.7 H, Lymph % (Auto) 10.8 L, [place] % (Auto) 8.8, Eos % (Auto) 0.4, Baso % (Auto) 0.1, Absolute Neuts (auto) 10.5 H, Absolute Lymphs (auto) 1.42, Total Counted Not Reportable 12/30/18 : Sodium 135 L, Potassium 4.0, Chloride 101, Carbon Dioxide 26.0, Anion Gap 8, BUN 18, Creatinine 1.03, Estim Creat Clear Calc 75.63, Est GFR (MDRD) Af Amer 95, Est GFR (MDRD) Non-Af 79, BUN/Creatinine Ratio 17.5, Glucose 141 H, Calcium 8.7 Current Medications Acetaminophen (Tylenol) 650 mg PO Q6H PRN PRN PRN Reason: Mild Pain (1-3)/Temp > 100.7 F Last Admin: 12/29/18 06:36 Dose: 650 mg Al Hydroxide/Mg Hydroxide (Mylanta Ii) 30 ml PO Q6H PRN PRN PRN Reason: HEARTBURN OR INDIGESTION Albuterol Sulfate (Ventolin Aerosols) 2.5 mg INHALATION Q4H PRN PRN PRN Reason: Shortness of breath, wheezing Amlodipine Besylate (Norvasc) 10 mg PO DAILY [facility] Last Admin: 12/29/18 07:50 Dose: 10 mg Cyclobenzaprine HCl (Flexeril) 10 mg PO TID [facility] Enoxaparin Sodium (Lovenox) 40 mg SC DAILY [facility] Last Admin: 12/29/18 07:49 Dose: 40 mg Furosemide (Lasix) 40 mg PO BID@1000,1800 [facility] Last Admin: 12/29/18 17:30 Dose: 40 mg Hydralazine HCl (Apresoline Iv) 10 mg IV Q6H PRN PRN PRN Reason: for SBP> 160 Last Admin: 12/29/18 10:56 Dose: 10 mg Hydromorphone HCl (Dilaudid Inj) 1 - 2 mg IV Q4H PRN PRN PRN Reason: Severe pain (7-10/10) Last Admin: 12/30/18 06:10 Dose: 1 mg Cefazolin Sodium 2 gm/ Sodium (Chloride) 110 mls @ 150 mls/hr IV Q8 [facility] Last Admin: 12/30/18 06:10 Dose: 150 mls/hr Ketorolac Tromethamine (Toradol) 30 mg IV Q6 [facility] Stop: 01/04/19 10:01 Lisinopril (Zestril) 20 mg PO DAILY [facility] Last Admin: 12/29/18 07:50 Dose: 20 mg Magnesium Hydroxide (Milk Of Magnesia) 30 ml PO DAILY [facility] Last Admin: 12/29/18 07:50 Dose: 30 ml Ondansetron HCl (Zofran) 4 mg IV Q8H PRN PRN PRN Reason: NAUSEA/VOMITING Oxycodone HCl (Oxyir) 10 mg PO Q4H PRN PRN PRN Reason: Moderate Pain (4-6/10) Last Admin: 12/30/18 04:21 Dose: 10 mg Pantoprazole Sodium (Protonix) 40 mg PO BID [facility] Last Admin: 12/29/18 21:56 Dose: 40 mg Senna (Senokot) 2 tablet PO BID [facility] Last Admin: 12/29/18 21:57 Dose: Not Given Sodium Chloride () 5 - 15 ml IV UD PRN PRN Reason: SALINE FLUSH Last Admin: 12/29/18 21:58 Dose: 10 ml Medical Necessity - Tobacco Use Smoking Status: Never smoker Assessment/Plan All Active Problems (Last Updated 12/27/18 @ 07:53 by Ruben Sandoval DO) MSSA bacteremia (Acute) Intractable left lower back pain (Acute) Acute cystitis (Acute) Muscle tear (Acute) 1. Sepsis POA 2/2 bacteremia, possible UTI supportive mgmt 2. Bacteremia +MSSA unclear source, may be skin given numerous skin lesions. repeat BCx pending TTE unremarkable on cefazolin ID consult echo negative for vegetations 3. Psoas muscle tear no abscess on CT ?myositis continue abx 4. abnormal UA I am not convinced there is a UTI 5. Edema: concern for pulmonary HTN, given untreated RO start lasix echo insufficient for evaluation of pulmonary pressures. 6. HTN improving continue lisinopril 7. Acute on chronic back pain +lower back paraspinal tenderness discussed patient will not have an MRI of his back, unless he has red flags (new incontinence, radiculopathy) schedule ketorolac and cyclobenzaprine 8. VTE prophylaxis: LMWH DW patient's . 35 minutes of which greater than 50% of the time was discussed with patient and his about his back pain, further work-up in regards to the bacteremia and the likely source, being a skin, and why the patient would not be getting an MRI but did advised patient to inform us if he does have any of the concerning features which would immediately warrants an MRI, such as bowel or bladder incontinence or new radiculopathy. Code Visit Inpatient E&M: 09590 [facility] L3
[2018-12-30] MEDS: Furosemide 40 MG Tablet PO ×2 (09:57→18:02)
[2018-12-30] MEDS: Enoxaparin 40 MG/0.4 ML Syringe SC (09:57)
[2018-12-30] MEDS: amLODIPine 10 MG Tablet PO (09:58)
[2018-12-30] MEDS: Lisinopril 20 MG Tablet PO (09:59)
[2018-12-30] MEDS: Pantoprazole Sodium 40 MG Tablet PO ×2 (09:59→21:43)
--- NOTE | 2018-12-30 10:00 | PN_ITS ---
Patient Problems: Active and Suspected Problems (Last Updated 12/27/18 @ 07:53 by Ruben Sandoval DO) MSSA bacteremia (Acute) Subjective: Up in chair complaining of severe back pain. Denies and radicular symptoms, nor bladder nor bowel incontinence. Requesting MRI. States pain in back is due to worsening of his chronic back pain. Vitals/I&O's: Vital Signs Temp Pulse Resp BP Pulse Ox 36.7 C 94 18 152/89 H 98 12/30/18 08:11 12/30/18 08:11 12/30/18 08:11 12/30/18 08:11 12/30/18 08:11 Oxygen Flow Rate (L/min) 2 Oxygen Delivery Method Room Air Weight: 171.9 kg Body Mass Index (BMI) 56.7 Intake and Output for Last 24 Hours 12/28/18 12/29/18 12/30/18 23:59 23:59 23:59 Intake Total 3093 / 3093 1200 / 1200 Output Total 550 / 550 600 / 600 Balance 2543 / 2543 600 / 600 General: Alert, - - up in chair. uncomfortable. HEENT: Atraumatic, Normocephalic Neck: No Nodes, - - thick neck Lungs: Clear to auscultation, Normal air movement, No rhonchi, No wheeze Cardiovascular: Regular rate, Regular Rhythm, Normal S1, Normal S2 Abdomen: Bowel Sounds Present, Soft, Non Tender, Non-Distended Extremities: No Calf Tenderness, Edema Skin: - - scabbed over superficial wounds over legs. no cellulitis. Musculoskeletal: No Tenderness to Palpation of Joints or Extremities, No Muscle Wasting, - - lumbar paraspinal muscle tenderness. Psych/Mental Status: Normal Affect, Appropriate Microbiology Past 72 Hours 12/29/18 07:42 Blood Culture (Wb) - Left Hand Blood Culture - Preliminary 12/29/18 07:33 Blood Culture (Wb) - Anticubital Right Blood Culture - Preliminary 12/28/18 17:07 Blood Culture (Wb) - Anticubital Left Blood Culture - Final Staphylococcus aureus 12/28/18 17:00 Blood Culture (Wb) - Anticubital Right Bacteria Detection (P CR) - Final Staphylococcus aureus 12/28/18 17:00 Blood Culture (Wb) - Anticubital Right Blood Culture - Preliminary Staphylococcus aureus 12/28/18 17:20 Urine Catheter - Catheter Urine Culture - Preliminary Staphylococcus species Laboratory Results 12/30/18 : WBC 13.2 H, RBC 4.23 L, Hgb 12.8 L, Hct 38.8 L, MCV 91.7, MCH 30.3, MCHC 33.0, RDW 13.7, RDW Differential 45.9 H, Plt Count 262, MPV 10.6, Immature Gran % (Auto) 0.200, Neut % (Auto) 79.7 H, Lymph % (Auto) 10.8 L, [place] % (Auto) 8.8, Eos % (Auto) 0.4, Baso % (Auto) 0.1, Absolute Neuts (auto) 10.5 H, Absolute Lymphs (auto) 1.42, Total Counted Not Reportable 12/30/18 : Sodium 135 L, Potassium 4.0, Chloride 101, Carbon Dioxide 26.0, Anion Gap 8, BUN 18, Creatinine 1.03, Estim Creat Clear Calc 75.63, Est GFR (MDRD) Af Amer 95, Est GFR (MDRD) Non-Af 79, BUN/Creatinine Ratio 17.5, Glucose 141 H, Calcium 8.7 Current Medications Acetaminophen (Tylenol) 650 mg PO Q6H PRN PRN PRN Reason: Mild Pain (1-3)/Temp > 100.7 F Last Admin: 12/29/18 06:36 Dose: 650 mg Al Hydroxide/Mg Hydroxide (Mylanta Ii) 30 ml PO Q6H PRN PRN PRN Reason: HEARTBURN OR INDIGESTION Albuterol Sulfate (Ventolin Aerosols) 2.5 mg INHALATION Q4H PRN PRN PRN Reason: Shortness of breath, wheezing Amlodipine Besylate (Norvasc) [address] [facility] Last Admin: 12/29/18 07:50 Dose: 10 mg Cyclobenzaprine HCl (Flexeril) [address] [facility] Enoxaparin Sodium (Lovenox) [address] [facility] Last Admin: 12/29/18 07:49 Dose: 40 mg Furosemide (Lasix) 40 mg PO BID@1000,1800 [facility] Last Admin: 12/29/18 17:30 Dose: 40 mg Hydralazine HCl (Apresoline Iv) 10 mg IV Q6H PRN PRN PRN Reason: for SBP> 160 Last Admin: 12/29/18 10:56 Dose: 10 mg Hydromorphone HCl (Dilaudid Inj) 1 - 2 mg IV Q4H PRN PRN PRN Reason: Severe pain (7-10/10) Last Admin: 12/30/18 06:10 Dose: 1 mg Cefazolin Sodium 2 gm/ Sodium (Chloride) 110 mls @ 150 mls/hr IV Q8 [facility] Last Admin: 12/30/18 06:10 Dose: 150 mls/hr Ketorolac Tromethamine (Toradol) [address] [facility] Stop: 01/04/19 10:01 Lisinopril (Zestril) [address] [facility] Last Admin: 12/29/18 07:50 Dose: 20 mg Magnesium Hydroxide (Milk Of Magnesia) [address] [facility] Last Admin: 12/29/18 07:50 Dose: 30 ml Ondansetron HCl (Zofran) 4 mg IV Q8H PRN PRN PRN Reason: NAUSEA/VOMITING Oxycodone HCl (Oxyir) 10 mg PO Q4H PRN PRN PRN Reason: Moderate Pain (4-6/10) Last Admin: 12/30/18 04:21 Dose: 10 mg Pantoprazole Sodium (Protonix) [address] [facility] Last Admin: 12/29/18 21:56 Dose: 40 mg Senna (Senokot) [address] [facility] Last Admin: 12/29/18 21:57 Dose: Not Given Sodium Chloride () 5 - 15 ml IV UD PRN PRN Reason: SALINE FLUSH Last Admin: 12/29/18 21:58 Dose: 10 ml Medical Necessity - Tobacco Use Smoking Status: Never smoker Assessment/Plan All Active Problems (Last Updated 12/27/18 @ 07:53 by Ruben Sandoval DO) MSSA bacteremia (Acute) Intractable left lower back pain (Acute) Acute cystitis (Acute) Muscle tear (Acute) 1. Sepsis * POA * 2/2 bacteremia, possible UTI * supportive mgmt 2. Bacteremia * +MSSA * unclear source, may be skin given numerous skin lesions. * repeat BCx pending * TTE unremarkable * on cefazolin * ID consult * echo negative for vegetations 3. Psoas muscle tear * no abscess on CT * ?myositis * continue abx 4. abnormal UA * I am not convinced there is a UTI 5. Edema: * concern for pulmonary HTN, given untreated RO * start lasix * echo insufficient for evaluation of pulmonary pressures. 6. HTN * improving * continue lisinopril 7. Acute on chronic back pain * +lower back paraspinal tenderness * discussed patient will not have an MRI of his back, unless he has red flags (new incontinence, radiculopathy) * schedule ketorolac and cyclobenzaprine 8. VTE prophylaxis: LMWH DW patient's . 35 minutes of which greater than 50% of the time was discussed with patient and his about his back pain, further work-up in regards to the bacteremia and the likely source, being a skin, and why the patient would not be getting an MRI but did advised patient to inform us if he does have any of the concerning features which would immediately warrants an MRI, such as bowel or bladder incontinence or new radiculopathy. Code Visit Inpatient E&M: 45064 [facility] L3
[2018-12-30] MEDS: Ketorolac 30 MG/ML Syringe IV ×3 (10:40→21:43)
[2018-12-30] MEDS: 0.9% NaCl Peripheral Flush Adult/Peds IV ×2 (14:35→21:43)
--- NOTE | 2018-12-30 15:50 | PN.ID_ITS ---
Patient Problems: Active and Suspected Problems (Last Updated 12/27/18 @ 07:53 by Ruben Sandoval DO) MSSA bacteremia (Acute) Subjective: Feeling ok, back improved, no fever, no n/v/d. - Physical Exam General: Alert, Cooperative, No apparent distress Lungs: Clear to auscultation, Normal air movement Cardiovascular: Regular rate, Regular Rhythm Abdomen: Soft, Non Tender, Non-Distended Skin: No rashes Vital Signs Temp Pulse Resp BP Pulse Ox 98.6 F 97 16 155/75 H 98 12/30/18 14:41 12/30/18 14:41 12/30/18 14:41 12/30/18 14:41 12/30/18 14:41 Oxygen Flow Rate (L/min) 2 Oxygen Delivery Method Room Air Weight: 171.9 kg Body Mass Index (BMI) 56.7 Intake and Output for Last 24 Hours 12/28/18 12/29/18 12/30/18 23:59 23:59 23:59 Intake Total 3093 / 3093 1200 / 1200 Output Total 550 / 550 600 / 600 Balance 2543 / 2543 600 / 600 Microbiology Past 72 Hours 12/29/18 07:42 Blood Culture - Preliminary Blood Culture (Wb) - Left Hand Staphylococcus aureus 12/29/18 07:33 Blood Culture - Preliminary Blood Culture (Wb) - Anticubital Right Staphylococcus aureus 12/28/18 17:20 Urine Culture - Final Urine Catheter - Catheter Staphylococcus aureus 12/28/18 17:07 Blood Culture - Final Blood Culture (Wb) - Anticubital Left Staphylococcus aureus 12/28/18 17:00 Bacteria Detection (PCR) - Final Blood Culture (Wb) - Anticubital Right Staphylococcus aureus Blood Culture - Preliminary Staphylococcus aureus Laboratory Tests Past 24 Hrs 12/30/18 12/30/18 Unknown Unknown WBC 13.2 H RBC 4.23 L Hgb 12.8 L Hct 38.8 L MCV 91.7 MCH 30.3 MCHC 33.0 RDW 13.7 RDW Differential 45.9 H Plt Count 262 MPV 10.6 Immature Gran % (Auto) 0.200 Neut % (Auto) 79.7 H Lymph % (Auto) 10.8 L [place] % (Auto) 8.8 Eos % (Auto) 0.4 Baso % (Auto) 0.1 Absolute Neuts (auto) 10.5 H Absolute Lymphs (auto) 1.42 Total Counted Not Reportable Sodium 135 L Potassium 4.0 Chloride 101 Carbon Dioxide 26.0 Anion Gap 8 BUN 18 Creatinine 1.03 Estim Creat Clear Calc 75.63 Est GFR (MDRD) Af Amer 95 Est GFR (MDRD) Non-Af 79 BUN/Creatinine Ratio 17.5 Glucose 141 H Calcium 8.7 Medical Necessity - Tobacco Use Smoking Status: Never smoker Route of nutrition/ use of supplements: [] Nutritional Intake: [] IV Site: [] Villagran Catheter: [] - Assessment/Plan Antibiotics: [] Assessment/Plan: [] Active and Suspected Problems (Last Updated 12/27/18 @ 07:53 by Ruben Sandoval DO) Intractable left lower back pain (Acute) Acute cystitis (Acute) sepsis (fever, tachycardia) due to MSSA bacteremia likely skin source. Repeat bcx repeat today and tomorrow. Echo report pending. Narrowed abx to cefazolin. No sign of splinter hemorrhages/janeway/osler on hands or feet. Will follow
--- NOTE | 2018-12-30 16:00 | CASEMGMT ---
Social Work Note SW received call from Francine with TCU stating pre-cert has been obtained and if medically cleared pt can discharge to TCU this weekend. YUSEF placed a call to Charge Nurse and updated her that pre-cert was obtained and pt can discharge over the weekend if medically cleared. Plan: TCU once medically cleared Shamika Bright MSW, [employer]
[2018-12-30] MEDS: Senna Tablet 2 TABLET PO (18:01)
--- NOTE | 2018-12-30 20:02 | NURSING ---
This nurse walked into pt's room to find him ambulating without calling for assistance. This nurse explained the importance of calling for assistance when ambulating in his room. Pt stated, Yeah, I know but I don't really care. This nurse advised pt that it was for his safety to make sure to call out when he needed to get up. Pt continued to argue with this nurse. This nurse again stressed the importance of using the call light for needs and then set the bed alarm to help monitor pt.
[2018-12-31 02:24] VITALS: BP 120/89; PULSE 101; RESP 18; TEMP 37.4; O2SAT 95
[2018-12-31] MEDS: Ketorolac 30 MG/ML Syringe IV ×4 (03:59→21:16)
[2018-12-31] MEDS: 0.9% NaCl Peripheral Flush Adult/Peds IV ×5 (04:00→21:27)
[2018-12-31] MEDS: Cefazolin 2 GM in 0.9% Normal Saline 100 ML IV ×3 (05:35→21:17)
[2018-12-31 07:35] LABS: Absolute Lymphocyte Count 0.78 X10^3/ul (0.83-4.51); Absolute Neutrophil Count 5.8 X10^3/uL (2.0-7.7); Basophil# 0.01 X10^3/uL; Basophil% 0.1 % (0-1); Eosinophil# 0.11 X10^3/uL; Eosinophils% 1.4 % (0-5); Hematocrit 39.1 % (40-54); Hemoglobin 12.6 g/dl (13.0-16.5); Lymphocyte # 0.78 X10^3/ul (4.0); Lymphocyte % 9.8 % (19-41); Mean Corp Hgb Conc 32.2 g/gl (32-36); Mean Corpuscular Hgb 29.5 pg (27.0-32.0); Mean Corpuscular Volume 91.6 fL (80-94); Mean Platelet Vol. 10.5 fl (6.2-12.0); Monocyte# 1.18 X10^3/uL; Monocyte% 14.8 % (0-10); Neutrophil # 5.83 X10^3/uL (2.7-7.7); Neutrophil % 73.4 % (47-70); POSITIVE COUNT NO; POSITIVE DIFFERENTIAL NO; POSITIVE MORPHOLOGY NO; Platelet Count 252 K/mm3 (150-450); RBC Distribution Width CV 13.6 % (11.6-14.6); RBC Distribution Width SD 44.9 fl (35.1-43.9); Red Blood Count 4.27 M/mm3 (4.6-6.2)
[2018-12-31 07:37] VITALS: BP 157/93; PULSE 70; PULSE 91; RESP 18; TEMP 37.2; O2SAT 94
[2018-12-31 07:49] LABS: Anion Gap 7 (5-15); BUN 22 mg/dL (7-18); BUN/Creat Ratio 17.3 RATIO (10-20); Calcium,Total 8.6 mg/dL (8.5-10.1); Chloride 100 mmol/L (98-107); Creatinine, Serum 1.27 mg/dL (0.70-1.30); EST Glomerular Filtration Rate 62 mL/min (>60); Est Glom Filt Rate - Afr Amer 75 mL/min (>60); Estimated Creatinine Clearance 61.34 ml/min; Glucose 151 mg/dL (74-106); Potassium 3.8 mmol/L (3.5-5.1); Sodium Level 136 mmol/L (136-145)
--- NOTE | 2018-12-31 10:44 | PCM.PN.HOSP ---
Patient Problems: Active and Suspected Problems (Last Updated 12/27/18 @ 07:53 by Ruben Sandoval DO) MSSA bacteremia (Acute) Subjective: Feels much better. States that he has had weakness in flexing his left hip for some time. Denies and radical pain nor paresthesias. Vitals/I&O's: Vital Signs Temp Pulse Resp BP Pulse Ox 37.2 C 91 18 157/93 H 94 12/31/18 07:37 12/31/18 07:37 12/31/18 07:37 12/31/18 07:37 12/31/18 07:37 Oxygen Flow Rate (L/min) 2 Oxygen Delivery Method Room Air Weight: 171.9 kg Body Mass Index (BMI) 56.7 Intake and Output for Last 24 Hours 12/29/18 12/30/18 12/31/18 23:59 23:59 23:59 Intake Total 3093 / 3093 1999 / 1999 1901 / 1901 Output Total 550 / 550 600 / 600 Balance 2543 / 2543 1400 / 1400 1901 General: Alert, No apparent distress, - - much more comfortable today. HEENT: Atraumatic, Normocephalic Oral: Moist Mucosa, No Gingival or Mucosal Lesions/ Ulcerations Neck: No Nodes, Thyroid Normal Size and Texture Lungs: Clear to auscultation, Normal air movement, No rhonchi, No wheeze Cardiovascular: Regular rate, Regular Rhythm, Normal S1, Normal S2, No murmurs Abdomen: Bowel Sounds Present, Soft, Non Tender, Non-Distended, No Hepato-splenomegaly Extremities: No edema, No Calf Tenderness Skin: No rashes, No breakdown Neurological: Gait narrow based and stable - using walker with therapy Psych/Mental Status: Normal Affect, Appropriate Microbiology Past 72 Hours 12/29/18 07:42 Blood Culture (Wb) - Left Hand Blood Culture - Preliminary No growth in 48 hours. 12/29/18 07:33 Blood Culture (Wb) - Anticubital Right Blood Culture - Preliminary No growth in 48 hours. 12/28/18 17:00 Blood Culture (Wb) - Anticubital Right Bacteria Detection (PCR) - Final Staphylococcus aureus 12/28/18 17:00 Blood Culture (Wb) - Anticubital Right Blood Culture - Final Staphylococcus aureus 12/28/18 17:20 Urine Catheter - Catheter Urine Culture - Final Staphylococcus aureus 12/28/18 17:07 Blood Culture (Wb) - Anticubital Left Blood Culture - Final Staphylococcus aureus Laboratory Results 12/31/18 06:50: WBC 8.0, RBC 4.27 L, Hgb 12.6 L, Hct 39.1 L, MCV 91.6, MCH 29.5, MCHC 32.2, RDW 13.6, RDW Differential 44.9 H, Plt Count 252, MPV 10.5, Immature Gran % (Auto) 0.500, Neut % (Auto) 73.4 H, Lymph % (Auto) 9.8 L, [place] % (Auto) 14.8 H, Eos % (Auto) 1.4, Baso % (Auto) 0.1, Absolute Neuts (auto) 5.8, Absolute Lymphs (auto) 0.78 L, Total Counted Not Reportable 12/31/18 06:50: Sodium 136, Potassium 3.8, Chloride 100, Carbon Dioxide 29.0, Anion Gap 7, BUN 22 H, Creatinine 1.27, Estim Creat Clear Calc 61.34, Est GFR (MDRD) Af Amer 75, Est GFR (MDRD) Non-Af 62, BUN/Creatinine Ratio 17.3, Glucose 151 H, Calcium 8.6 Current Medications Acetaminophen (Tylenol) 650 mg PO Q6H PRN PRN PRN Reason: Mild Pain (1-3)/Temp > 100.7 F Last Admin: 12/29/18 06:36 Dose: 650 mg Al Hydroxide/Mg Hydroxide (Mylanta Ii) 30 ml PO Q6H PRN PRN PRN Reason: HEARTBURN OR INDIGESTION Albuterol Sulfate (Ventolin Aerosols) 2.5 mg INHALATION Q4H PRN PRN PRN Reason: Shortness of breath, wheezing Amlodipine Besylate (Norvasc) 10 mg PO DAILY [facility] Last Admin: 12/30/18 09:58 Dose: 10 mg Cyclobenzaprine HCl (Flexeril) 10 mg PO TID [facility] Last Admin: 12/31/18 05:35 Dose: 10 mg Enoxaparin Sodium (Lovenox) 40 mg SC DAILY [facility] Last Admin: 12/30/18 09:57 Dose: 40 mg Furosemide (Lasix) 40 mg PO BID@1000,1800 [facility] Last Admin: 12/30/18 18:02 Dose: 40 mg Hydralazine HCl (Apresoline Iv) 10 mg IV Q6H PRN PRN PRN Reason: for SBP> 160 Last Admin: 12/29/18 10:56 Dose: 10 mg Hydromorphone HCl (Dilaudid Inj) 1 - 2 mg IV Q4H PRN PRN PRN Reason: Severe pain (7-10/10) Last Admin: 12/30/18 06:10 Dose: 1 mg Cefazolin Sodium 2 gm/ Sodium (Chloride) 110 mls @ 150 mls/hr IV Q8 [facility] Last Admin: 12/31/18 05:35 Dose: 150 mls/hr Ketorolac Tromethamine (Toradol) 30 mg IV Q6H [facility] Stop: 01/04/19 10:01 Last Admin: 12/31/18 03:59 Dose: 30 mg Lisinopril (Zestril) 20 mg PO DAILY [facility] Last Admin: 12/30/18 09:59 Dose: 20 mg Magnesium Hydroxide (Milk Of Magnesia) 30 ml PO DAILY [facility] Last Admin: 12/30/18 09:58 Dose: Not Given Ondansetron HCl (Zofran) 4 mg IV Q8H PRN PRN PRN Reason: NAUSEA/VOMITING Oxycodone HCl (Oxyir) 10 mg PO Q4H PRN PRN PRN Reason: Moderate Pain (4-6/10) Last Admin: 12/30/18 04:21 Dose: 10 mg Pantoprazole Sodium (Protonix) 40 mg PO BID [facility] Last Admin: 12/30/18 21:43 Dose: 40 mg Senna (Senokot) 2 tablet PO BID [facility] Last Admin: 12/30/18 21:43 Dose: Not Given Sodium Chloride () 5 - 15 ml IV UD PRN PRN Reason: SALINE FLUSH Last Admin: 12/31/18 05:43 Dose: 10 ml Medical Necessity - Tobacco Use Smoking Status: Never smoker Assessment/Plan All Active Problems (Last Updated 12/27/18 @ 07:53 by Ruben Sandoval DO) MSSA bacteremia (Acute) Intractable left lower back pain (Acute) Acute cystitis (Acute) Muscle tear (Acute) 1. Sepsis POA 2/2 bacteremia supportive mgmt 2. Bacteremia +MSSA on cultures from , . follow up on BCx on the unclear source, may be skin given numerous skin lesions. TTE unremarkable on cefazolin ID following 3. Psoas muscle tear improved no abscess on CT 4. abnormal UA I am not convinced there is a UTI, essentially UTI rule out. UCx showed staph aureus. This is likely due to the bacteremia as S. aureus is not a typical urinary pathogen. 5. Edema: concern for pulmonary HTN, given untreated RO start lasix echo insufficient for evaluation of pulmonary pressures. 6. HTN improving continue lisinopril 7. Acute on chronic back pain improved +lower back paraspinal tenderness discussed patient will not have an MRI of his back, unless he has red flags (new incontinence, radiculopathy) schedule ketorolac and cyclobenzaprine 8. VTE prophylaxis: LMWH
--- NOTE | 2018-12-31 10:49 | PN_ITS ---
Patient Problems: Active and Suspected Problems (Last Updated 12/27/18 @ 07:53 by Ruben Sandoval DO) MSSA bacteremia (Acute) Subjective: Feels much better. States that he has had weakness in flexing his left hip for some time. Denies and radical pain nor paresthesias. Vitals/I&O's: Vital Signs Temp Pulse Resp BP Pulse Ox 37.2 C 91 18 157/93 H 94 12/31/18 07:37 12/31/18 07:37 12/31/18 07:37 12/31/18 07:37 12/31/18 07:37 Oxygen Flow Rate (L/min) 2 Oxygen Delivery Method Room Air Weight: 171.9 kg Body Mass Index (BMI) 56.7 Intake and Output for Last 24 Hours 12/29/18 12/30/18 12/31/18 23:59 23:59 23:59 Intake Total 3093 / 3093 1999 / 1999 1901 / 1901 Output Total 550 / 550 600 / 600 Balance 2543 / 2543 1400 / 1400 1901 General: Alert, No apparent distress, - - much more comfortable today. HEENT: Atraumatic, Normocephalic Oral: Moist Mucosa, No Gingival or Mucosal Lesions/ Ulcerations Neck: No Nodes, Thyroid Normal Size and Texture Lungs: Clear to auscultation, Normal air movement, No rhonchi, No wheeze Cardiovascular: Regular rate, Regular Rhythm, Normal S1, Normal S2, No murmurs Abdomen: Bowel Sounds Present, Soft, Non Tender, Non-Distended, No Hepato- splenomegaly Extremities: No edema, No Calf Tenderness Skin: No rashes, No breakdown Neurological: Gait narrow based and stable - using walker with therapy Psych/Mental Status: Normal Affect, Appropriate Microbiology Past 72 Hours 12/29/18 07:42 Blood Culture (Wb) - Left Hand Blood Culture - Preliminary No growth in 48 hours. 12/29/18 07:33 Blood Culture (Wb) - Anticubital Right Blood Culture - Preliminary No growth in 48 hours. 12/28/18 17:00 Blood Culture (Wb) - Anticubital Right Bacteria Detection (PCR) - Final Staphylococcus aureus 12/28/18 17:00 Blood Culture (Wb) - Anticubital Right Blood Culture - Final Staphylococcus aureus 12/28/18 17:20 Urine Catheter - Catheter Urine Culture - Final Staphylococcus aureus 12/28/18 17:07 Blood Culture (Wb) - Anticubital Left Blood Culture - Final Staphylococcus aureus Laboratory Results 12/31/18 06:50: WBC 8.0, RBC 4.27 L, Hgb 12.6 L, Hct 39.1 L, MCV 91.6, MCH 29.5, MCHC 32.2, RDW 13.6, RDW Differential 44.9 H, Plt Count 252, MPV 10.5, Immature Gran % (Auto) 0.500, Neut % (Auto) 73.4 H, Lymph % (Auto) 9.8 L, Bell % (Auto) 14.8 H, Eos % (Auto) 1.4, Baso % (Auto) 0.1, Absolute Neuts (auto) 5.8, Absolute Lymphs (auto) 0.78 L, Total Counted Not Reportable 12/31/18 06:50: Sodium 136, Potassium 3.8, Chloride 100, Carbon Dioxide 29.0, Anion Gap 7, BUN 22 H, Creatinine 1.27, Estim Creat Clear Calc 61.34, Est GFR (MDRD) Af Amer 75, Est GFR (MDRD) Non-Af 62, BUN/Creatinine Ratio 17.3, Glucose 151 H, Calcium 8.6 Current Medications Acetaminophen (Tylenol) 650 mg PO Q6H PRN PRN PRN Reason: Mild Pain (1-3)/Temp > 100.7 F Last Admin: 12/29/18 06:36 Dose: 650 mg Al Hydroxide/Mg Hydroxide (Mylanta Ii) 30 ml PO Q6H PRN PRN PRN Reason: HEARTBURN OR INDIGESTION Albuterol Sulfate (Ventolin Aerosols) 2.5 mg INHALATION Q4H PRN PRN PRN Reason: Shortness of breath, wheezing Amlodipine Besylate (Norvasc) 10 mg PO DAILY [facility] Last Admin: 12/30/18 09:58 Dose: 10 mg Cyclobenzaprine HCl (Flexeril) 10 mg PO TID [facility] Last Admin: 12/31/18 05:35 Dose: 10 mg Enoxaparin Sodium (Lovenox) 40 mg SC DAILY [facility] Last Admin: 12/30/18 09:57 Dose: 40 mg Furosemide (Lasix) 40 mg PO BID@1000,1800 [facility] Last Admin: 12/30/18 18:02 Dose: 40 mg Hydralazine HCl (Apresoline Iv) 10 mg IV Q6H PRN PRN PRN Reason: for SBP> 160 Last Admin: 12/29/18 10:56 Dose: 10 mg Hydromorphone HCl (Dilaudid Inj) 1 - 2 mg IV Q4H PRN PRN PRN Reason: Severe pain (7-10/10) Last Admin: 12/30/18 06:10 Dose: 1 mg Cefazolin Sodium 2 gm/ Sodium (Chloride) 110 mls @ 150 mls/hr IV Q8 [facility] Last Admin: 12/31/18 05:35 Dose: 150 mls/hr Ketorolac Tromethamine (Toradol) 30 mg IV Q6H [facility] Stop: 01/04/19 10:01 Last Admin: 12/31/18 03:59 Dose: 30 mg Lisinopril (Zestril) 20 mg PO DAILY [facility] Last Admin: 12/30/18 09:59 Dose: 20 mg Magnesium Hydroxide (Milk Of Magnesia) 30 ml PO DAILY [facility] Last Admin: 12/30/18 09:58 Dose: Not Given Ondansetron HCl (Zofran) 4 mg IV Q8H PRN PRN PRN Reason: NAUSEA/VOMITING Oxycodone HCl (Oxyir) 10 mg PO Q4H PRN PRN PRN Reason: Moderate Pain (4-6/10) Last Admin: 12/30/18 04:21 Dose: 10 mg Pantoprazole Sodium (Protonix) 40 mg PO BID [facility] Last Admin: 12/30/18 21:43 Dose: 40 mg Senna (Senokot) 2 tablet PO BID [facility] Last Admin: 12/30/18 21:43 Dose: Not Given Sodium Chloride () 5 - 15 ml IV UD PRN PRN Reason: SALINE FLUSH Last Admin: 12/31/18 05:43 Dose: 10 ml Medical Necessity - Tobacco Use Smoking Status: Never smoker Assessment/Plan All Active Problems (Last Updated 12/27/18 @ 07:53 by Ruben Sandoval DO) MSSA bacteremia (Acute) Intractable left lower back pain (Acute) Acute cystitis (Acute) Muscle tear (Acute) 1. Sepsis * POA * 2/2 bacteremia * supportive mgmt 2. Bacteremia * +MSSA on cultures from , . * follow up on BCx on the * unclear source, may be skin given numerous skin lesions. * TTE unremarkable * on cefazolin * ID following 3. Psoas muscle tear * improved * no abscess on CT 4. abnormal UA * I am not convinced there is a UTI, essentially UTI rule out. * UCx showed staph aureus. This is likely due to the bacteremia as S. aureus is not a typical urinary pathogen. 5. Edema: * concern for pulmonary HTN, given untreated RO * start lasix * echo insufficient for evaluation of pulmonary pressures. 6. HTN * improving * continue lisinopril 7. Acute on chronic back pain * improved * +lower back paraspinal tenderness * discussed patient will not have an MRI of his back, unless he has red flags (new incontinence, radiculopathy) * schedule ketorolac and cyclobenzaprine 8. VTE prophylaxis: LMWH
[2018-12-31] MEDS: Furosemide 40 MG Tablet PO ×2 (11:03→17:30)
[2018-12-31] MEDS: Enoxaparin 40 MG/0.4 ML Syringe SC (11:03)
[2018-12-31] MEDS: oxyCODONE 5 MG Tablet 10 MG PO ×2 (11:03→20:05)
[2018-12-31 11:04] VITALS: O2SAT 93
[2018-12-31] MEDS: Pantoprazole Sodium 40 MG Tablet PO ×2 (11:04→21:18)
[2018-12-31] MEDS: amLODIPine 10 MG Tablet PO (11:04)
[2018-12-31] MEDS: Lisinopril 20 MG Tablet PO (11:05)
[2018-12-31 15:02] VITALS: BP 140/60; PULSE 93; RESP 18; TEMP 36.7; O2SAT 95
[2018-12-31 15:03] VITALS: PULSE 100
[2018-12-31 20:10] VITALS: BP 156/92; PULSE 95; RESP 16; TEMP 36.8; O2SAT 98
[2019-01-01] MEDS: oxyCODONE 5 MG Tablet 10 MG PO ×2 (01:08→07:24)
[2019-01-01] MEDS: Acetaminophen 325 MG Tablet 650 MG PO (01:09)
[2019-01-01 03:00] VITALS: BP 151/80; PULSE 82; RESP 16; TEMP 36.6; O2SAT 94
[2019-01-01] MEDS: 0.9% NaCl Peripheral Flush Adult/Peds IV ×4 (03:09→21:01)
[2019-01-01] MEDS: Ketorolac 30 MG/ML Syringe IV ×4 (03:09→21:01)
[2019-01-01] MEDS: Cefazolin 2 GM in 0.9% Normal Saline 100 ML IV ×3 (05:04→21:01)
[2019-01-01 07:07] VITALS: O2SAT 90
[2019-01-01 08:03] VITALS: BP 126/78; PULSE 90; RESP 18; TEMP 36.4; O2SAT 100
[2019-01-01] MEDS: Enoxaparin 40 MG/0.4 ML Syringe SC (08:16)
[2019-01-01] MEDS: Lisinopril 20 MG Tablet PO (08:16)
[2019-01-01] MEDS: Furosemide 40 MG Tablet PO (08:16)
[2019-01-01] MEDS: Pantoprazole Sodium 40 MG Tablet PO ×2 (08:16→21:01)
[2019-01-01] MEDS: amLODIPine 10 MG Tablet PO (08:18)
--- NOTE | 2019-01-01 09:21 | PCM.PN.HOSP ---
Patient Problems: Active and Suspected Problems (Last Updated 12/27/18 @ 07:53 by Ruben Sandoval DO) MSSA bacteremia (Acute) Subjective: Feels well. Still feels weak in left hip. Was up and walking today with therapy. No numbness nor pain down his legs. Vitals/I&O's: Vital Signs Temp Pulse Resp BP Pulse Ox 36.4 C L 90 18 126/78 H 100 01/01/19 08:03 01/01/19 08:03 01/01/19 08:03 01/01/19 08:03 01/01/19 08:03 Oxygen Flow Rate (L/min) 2 Oxygen Delivery Method Room Air Weight: 171.9 kg Body Mass Index (BMI) 56.7 Intake and Output for Last 24 Hours 12/30/18 12/31/18 01/01/19 23:59 23:59 23:59 Intake Total 1999 / 1999 2302 / 2302 418 / 418 Output Total 600 / 600 Balance 1400 / 1400 2302 / 2302 418 / 418 General: Alert, No apparent distress HEENT: Atraumatic, Normocephalic Oral: Moist Mucosa, No Gingival or Mucosal Lesions/ Ulcerations Neck: No Nodes, Thyroid Normal Size and Texture Lungs: Clear to auscultation, Normal air movement, No rhonchi, No wheeze Cardiovascular: Regular rate, Regular Rhythm, Normal S1, Normal S2, No murmurs Abdomen: Bowel Sounds Present, Soft, Non Tender, Non-Distended, No Hepato-splenomegaly Extremities: No edema, No Calf Tenderness Skin: No rashes, No breakdown Psych/Mental Status: Normal Affect, Appropriate Microbiology Past 72 Hours 12/29/18 07:42 Blood Culture (Wb) - Left Hand Blood Culture - Preliminary No growth in 48 hours. 12/29/18 07:33 Blood Culture (Wb) - Anticubital Right Blood Culture - Preliminary No growth in 48 hours. 12/28/18 17:00 Blood Culture (Wb) - Anticubital Right Bacteria Detection (PCR) - Final Staphylococcus aureus 12/28/18 17:00 Blood Culture (Wb) - Anticubital Right Blood Culture - Final Staphylococcus aureus 12/28/18 17:20 Urine Catheter - Catheter Urine Culture - Final Staphylococcus aureus 12/28/18 17:07 Blood Culture (Wb) - Anticubital Left Blood Culture - Final Staphylococcus aureus Current Medications Acetaminophen (Tylenol) 650 mg PO Q6H PRN PRN PRN Reason: Mild Pain (1-3)/Temp > 100.7 F Last Admin: 01/01/19 01:09 Dose: 650 mg Al Hydroxide/Mg Hydroxide (Mylanta Ii) 30 ml PO Q6H PRN PRN PRN Reason: HEARTBURN OR INDIGESTION Albuterol Sulfate (Ventolin Aerosols) 2.5 mg INHALATION Q4H PRN PRN PRN Reason: Shortness of breath, wheezing Amlodipine Besylate (Norvasc) 10 mg PO DAILY [facility] Last Admin: 01/01/19 08:18 Dose: 10 mg Cyclobenzaprine HCl (Flexeril) 10 mg PO TID [facility] Last Admin: 01/01/19 05:04 Dose: 10 mg Enoxaparin Sodium (Lovenox) 40 mg SC DAILY [facility] Last Admin: 01/01/19 08:16 Dose: 40 mg Furosemide (Lasix) 40 mg PO BID@1000,1800 [facility] Last Admin: 01/01/19 08:16 Dose: 40 mg Hydralazine HCl (Apresoline Iv) 10 mg IV Q6H PRN PRN PRN Reason: for SBP> 160 Last Admin: 12/29/18 10:56 Dose: 10 mg Hydromorphone HCl (Dilaudid Inj) 1 - 2 mg IV Q4H PRN PRN PRN Reason: Severe pain (7-10/10) Last Admin: 12/30/18 06:10 Dose: 1 mg Cefazolin Sodium 2 gm/ Sodium (Chloride) 110 mls @ 150 mls/hr IV Q8 [facility] Last Admin: 01/01/19 05:04 Dose: 150 mls/hr Ketorolac Tromethamine (Toradol) 30 mg IV Q6H [facility] Stop: 01/04/19 10:01 Last Admin: 01/01/19 03:09 Dose: 30 mg Lisinopril (Zestril) 20 mg PO DAILY [facility] Last Admin: 01/01/19 08:16 Dose: 20 mg Magnesium Hydroxide (Milk Of Magnesia) 30 ml PO DAILY [facility] Last Admin: 01/01/19 08:18 Dose: Not Given Ondansetron HCl (Zofran) 4 mg IV Q8H PRN PRN PRN Reason: NAUSEA/VOMITING Oxycodone HCl (Oxyir) 10 mg PO Q4H PRN PRN PRN Reason: Moderate Pain (4-6/10) Last Admin: 01/01/19 07:24 Dose: 10 mg Pantoprazole Sodium (Protonix) 40 mg PO BID [facility] Last Admin: 01/01/19 08:16 Dose: 40 mg Senna (Senokot) 2 tablet PO BID [facility] Last Admin: 01/01/19 08:19 Dose: Not Given Sodium Chloride () 5 - 15 ml IV UD PRN PRN Reason: SALINE FLUSH Last Admin: 01/01/19 05:05 Dose: 10 ml Medical Necessity - Tobacco Use Smoking Status: Never smoker Assessment/Plan All Active Problems (Last Updated 12/27/18 @ 07:53 by Ruben Sandoval DO) MSSA bacteremia (Acute) Intractable left lower back pain (Acute) Acute cystitis (Acute) Muscle tear (Acute) 1. Sepsis POA 2/2 bacteremia supportive mgmt 2. Bacteremia +MSSA on cultures from . BCx on now listed as negative. follow up on BCx on the and unclear source, may be skin given numerous skin lesions. TTE unremarkable on cefazolin ID following 3. Psoas muscle tear, left improved no abscess on CT pt with difficulty with left hip flexion likely due to this. reassurance provided. 4. abnormal UA I am not convinced there is a UTI, essentially UTI rule out. UCx showed staph aureus. This is likely due to the bacteremia as S. aureus is not a typical urinary pathogen. 5. Edema: concern for pulmonary HTN, given untreated RO change lasix to daily echo insufficient for evaluation of pulmonary pressures. 6. HTN improving, likely exacerbated by pain continue lisinopril 7. Acute on chronic back pain improved, +lower back paraspinal tenderness discussed patient will not have an MRI of his back, unless he has red flags (new incontinence, radiculopathy) schedule ketorolac and cyclobenzaprine 8. VTE prophylaxis: LMWH 9. Debility: to TCU pending cultures, which should be completed on 01/02. If negative, then can be discharged. Precertification already obtained, unless precert resets. Code Visit Inpatient E&M: 43257 Subs Hosp L2
--- NOTE | 2019-01-01 09:28 | PN_ITS ---
Patient Problems: Active and Suspected Problems (Last Updated 12/27/18 @ 07:53 by Ruben Sandoval DO) MSSA bacteremia (Acute) Subjective: Feels well. Still feels weak in left hip. Was up and walking today with therapy. No numbness nor pain down his legs. Vitals/I&O's: Vital Signs Temp Pulse Resp BP Pulse Ox 36.4 C L 90 18 126/78 H 100 01/01/19 08:03 01/01/19 08:03 01/01/19 08:03 01/01/19 08:03 01/01/19 08:03 Oxygen Flow Rate (L/min) 2 Oxygen Delivery Method Room Air Weight: 171.9 kg Body Mass Index (BMI) 56.7 Intake and Output for Last 24 Hours 12/30/18 12/31/18 01/01/19 23:59 23:59 23:59 Intake Total 1999 / 1999 2302 / 2302 418 / 418 Output Total 600 / 600 Balance 1400 / 1400 2302 / 2302 418 / 418 General: Alert, No apparent distress HEENT: Atraumatic, Normocephalic Oral: Moist Mucosa, No Gingival or Mucosal Lesions/ Ulcerations Neck: No Nodes, Thyroid Normal Size and Texture Lungs: Clear to auscultation, Normal air movement, No rhonchi, No wheeze Cardiovascular: Regular rate, Regular Rhythm, Normal S1, Normal S2, No murmurs Abdomen: Bowel Sounds Present, Soft, Non Tender, Non-Distended, No Hepato- splenomegaly Extremities: No edema, No Calf Tenderness Skin: No rashes, No breakdown Psych/Mental Status: Normal Affect, Appropriate Microbiology Past 72 Hours 12/29/18 07:42 Blood Culture (Wb) - Left Hand Blood Culture - Preliminary No growth in 48 hours. 12/29/18 07:33 Blood Culture (Wb) - Anticubital Right Blood Culture - Preliminary No growth in 48 hours. 12/28/18 17:00 Blood Culture (Wb) - Anticubital Right Bacteria Detection (PCR) - Final Staphylococcus aureus 12/28/18 17:00 Blood Culture (Wb) - Anticubital Right Blood Culture - Final Staphylococcus aureus 12/28/18 17:20 Urine Catheter - Catheter Urine Culture - Final Staphylococcus aureus 12/28/18 17:07 Blood Culture (Wb) - Anticubital Left Blood Culture - Final Staphylococcus aureus Current Medications Acetaminophen (Tylenol) 650 mg PO Q6H PRN PRN PRN Reason: Mild Pain (1-3)/Temp > 100.7 F Last Admin: 01/01/19 01:09 Dose: 650 mg Al Hydroxide/Mg Hydroxide (Mylanta Ii) 30 ml PO Q6H PRN PRN PRN Reason: HEARTBURN OR INDIGESTION Albuterol Sulfate (Ventolin Aerosols) 2.5 mg INHALATION Q4H PRN PRN PRN Reason: Shortness of breath, wheezing Amlodipine Besylate (Norvasc) 10 mg PO DAILY [facility] Last Admin: 01/01/19 08:18 Dose: 10 mg Cyclobenzaprine HCl (Flexeril) 10 mg PO TID [facility] Last Admin: 01/01/19 05:04 Dose: 10 mg Enoxaparin Sodium (Lovenox) 40 mg SC DAILY [facility] Last Admin: 01/01/19 08:16 Dose: 40 mg Furosemide (Lasix) 40 mg PO BID@1000,1800 [facility] Last Admin: 01/01/19 08:16 Dose: 40 mg Hydralazine HCl (Apresoline Iv) 10 mg IV Q6H PRN PRN PRN Reason: for SBP> 160 Last Admin: 12/29/18 10:56 Dose: 10 mg Hydromorphone HCl (Dilaudid Inj) 1 - 2 mg IV Q4H PRN PRN PRN Reason: Severe pain (7-10/10) Last Admin: 12/30/18 06:10 Dose: 1 mg Cefazolin Sodium 2 gm/ Sodium (Chloride) 110 mls @ 150 mls/hr IV Q8 [facility] Last Admin: 01/01/19 05:04 Dose: 150 mls/hr Ketorolac Tromethamine (Toradol) 30 mg IV Q6H [facility] Stop: 01/04/19 10:01 Last Admin: 01/01/19 03:09 Dose: 30 mg Lisinopril (Zestril) 20 mg PO DAILY [facility] Last Admin: 01/01/19 08:16 Dose: 20 mg Magnesium Hydroxide (Milk Of Magnesia) 30 ml PO DAILY [facility] Last Admin: 01/01/19 08:18 Dose: Not Given Ondansetron HCl (Zofran) 4 mg IV Q8H PRN PRN PRN Reason: NAUSEA/VOMITING Oxycodone HCl (Oxyir) 10 mg PO Q4H PRN PRN PRN Reason: Moderate Pain (4-6/10) Last Admin: 01/01/19 07:24 Dose: 10 mg Pantoprazole Sodium (Protonix) 40 mg PO BID [facility] Last Admin: 01/01/19 08:16 Dose: 40 mg Senna (Senokot) 2 tablet PO BID [facility] Last Admin: 01/01/19 08:19 Dose: Not Given Sodium Chloride () 5 - 15 ml IV UD PRN PRN Reason: SALINE FLUSH Last Admin: 01/01/19 05:05 Dose: 10 ml Medical Necessity - Tobacco Use Smoking Status: Never smoker Assessment/Plan All Active Problems (Last Updated 12/27/18 @ 07:53 by Ruben Sandoval DO) MSSA bacteremia (Acute) Intractable left lower back pain (Acute) Acute cystitis (Acute) Muscle tear (Acute) 1. Sepsis * POA * 2/2 bacteremia * supportive mgmt 2. Bacteremia * +MSSA on cultures from . BCx on now listed as negative. * follow up on BCx on the and * unclear source, may be skin given numerous skin lesions. * TTE unremarkable * on cefazolin * ID following 3. Psoas muscle tear, left * improved * no abscess on CT * pt with difficulty with left hip flexion likely due to this. reassurance provided. 4. abnormal UA * I am not convinced there is a UTI, essentially UTI rule out. * UCx showed staph aureus. This is likely due to the bacteremia as S. aureus is not a typical urinary pathogen. 5. Edema: * concern for pulmonary HTN, given untreated RO * change lasix to daily * echo insufficient for evaluation of pulmonary pressures. 6. HTN * improving, likely exacerbated by pain * continue lisinopril 7. Acute on chronic back pain * improved, * +lower back paraspinal tenderness * discussed patient will not have an MRI of his back, unless he has red flags (new incontinence, radiculopathy) * schedule ketorolac and cyclobenzaprine 8. VTE prophylaxis: LMWH 9. Debility: to TCU pending cultures, which should be completed on 01/02. If negative, then can be discharged. Precertification already obtained, unless precert resets. Code Visit Inpatient E&M: 39067 Subs Hosp L2
[2019-01-01 13:48] VITALS: BP 124/78; PULSE 89; RESP 20; TEMP 36.9; O2SAT 95
[2019-01-01 20:43] VITALS: BP 160/81; PULSE 97; RESP 18; TEMP 37.5; O2SAT 95
[2019-01-02] MEDS: oxyCODONE 5 MG Tablet 10 MG PO ×2 (01:14→11:22)
[2019-01-02] MEDS: Acetaminophen 325 MG Tablet 650 MG PO ×2 (01:14→11:23)
[2019-01-02 02:19] VITALS: BP 131/89; PULSE 93; RESP 20; TEMP 36.6; O2SAT 96
[2019-01-02] MEDS: Ketorolac 30 MG/ML Syringe IV ×3 (04:09→16:00)
[2019-01-02] MEDS: 0.9% NaCl Peripheral Flush Adult/Peds IV ×2 (04:10→05:22)
[2019-01-02] MEDS: Cefazolin 2 GM in 0.9% Normal Saline 100 ML IV ×2 (05:22→14:19)
[2019-01-02 06:04] LABS: Anion Gap 9 (5-15); BUN 16 mg/dL (7-18); BUN/Creat Ratio 14.2 RATIO (10-20); Calcium,Total 8.5 mg/dL (8.5-10.1); Chloride 101 mmol/L (98-107); Creatinine, Serum 1.13 mg/dL (0.70-1.30); EST Glomerular Filtration Rate 71 mL/min (>60); Est Glom Filt Rate - Afr Amer 86 mL/min (>60); Estimated Creatinine Clearance 68.94 ml/min; Glucose 137 mg/dL (74-106); Sodium Level 136 mmol/L (136-145)
[2019-01-02 08:15] VITALS: BP 145/89; PULSE 81; RESP 18; TEMP 36.4; O2SAT 96
[2019-01-02] MEDS: Lisinopril 20 MG Tablet PO (08:28)
[2019-01-02] MEDS: Furosemide 40 MG Tablet PO (08:29)
[2019-01-02] MEDS: Enoxaparin 40 MG/0.4 ML Syringe SC (08:29)
[2019-01-02] MEDS: amLODIPine 10 MG Tablet PO (08:29)
--- NOTE | 2019-01-02 09:25 | CASEMGMT ---
Addendum entered by Shamika Bright 01/02/19 14:33: YUSEF spoke with Francine, updated her that Blood Cultures came back negative, pt has had PICC Line placed and pt should be medically cleared for discharge today. Francine states she will update MMO. Original Note: Addendum entered by Shamika Bright 01/02/19 10:30: YUSEF spoke with Francine who is covering TCU today, asked if she knew if pre-cert is still good. Francine states she will have to check with MMO. SW waiting for call back. Original Note: Social Work Note SW placed a call to Mariann in TCU, left message asking if pre-cert is still good for today. YUSEF waiting for call back. Plan: TCU Shamika Bright MECHANICAL MAINTENANCE INSTRUCTOR, NET APPLICATION SUPPORT SPECIALIST
--- NOTE | 2019-01-02 13:39 | PCM.PN.HOSP ---
Patient Problems: Active and Suspected Problems (Last Updated 12/27/18 @ 07:53 by Ruben Sandoval DO) MSSA bacteremia (Acute) Subjective: Patient seen and examined. He had no complaints. Review of systems otherwise negative. Repeat blood cultures are negative. Discussed with ID, to have PICC line inserted today. Labs and vitals reviewed. Vitals/I&O's: Vital Signs Temp Pulse Resp BP Pulse Ox 97.6 F L 81 18 145/89 H 96 01/02/19 08:15 01/02/19 08:15 01/02/19 08:15 01/02/19 08:15 01/02/19 08:15 Oxygen Flow Rate (L/min) 2 Oxygen Delivery Method Room Air Weight: 378 lb 15.594 oz Body Mass Index (BMI) 56.7 Intake and Output for Last 24 Hours 12/31/18 01/01/19 01/02/19 23:59 23:59 23:59 Intake Total 2302 / 2302 918 / 918 750 / 750 Balance 2302 / 2302 918 / 918 750 / 750 General: Well nourished HEENT: Atraumatic, PERRLA, EOMI, Normocephalic Oral: Moist Mucosa Neck: Supple, No JVD, Negative Carotid Bruits Lungs: Clear to auscultation, Normal air movement, No rhonchi, No wheeze, No rales Cardiovascular: Regular rate, Regular Rhythm, Normal S1, Normal S2, No murmurs Abdomen: Bowel Sounds Present, Soft, Non Tender, Non-Distended, No Hepato-splenomegaly Extremities: No edema, Capillary Refill Less than 3 Seconds Skin: No rashes, No breakdown Musculoskeletal: No Tenderness to Palpation of Joints or Extremities Lymphatic: No Cervical, Supraclavicular, or Inguinal Adenopathy Neurological: Cranial nerves II-XII grossly intact, Neuro grossly intact, Motor Exam 5/5 strength throughout Psych/Mental Status: Normal Affect, Appropriate, Alert and oriented to time, place, person, mood and affect Microbiology Past 72 Hours 12/29/18 07:42 Blood Culture (Wb) - Left Hand Blood Culture - Preliminary Staphylococcus aureus 12/29/18 07:33 Blood Culture (Wb) - Anticubital Right Blood Culture - Preliminary Staphylococcus aureus 12/28/18 17:00 Blood Culture (Wb) - Anticubital Right Bacteria Detection (PCR) - Final Staphylococcus aureus 12/28/18 17:00 Blood Culture (Wb) - Anticubital Right Blood Culture - Final Staphylococcus aureus 12/28/18 17:20 Urine Catheter - Catheter Urine Culture - Final Staphylococcus aureus Laboratory Results 01/02/19 05:37: Sodium 136, Potassium 4.0, Chloride 101, Carbon Dioxide 26.0, Anion Gap 9, BUN 16, Creatinine 1.13, Estim Creat Clear Calc 68.94, Est GFR (MDRD) Af Amer 86, Est GFR (MDRD) Non-Af 71, BUN/Creatinine Ratio 14.2, Glucose 137 H, Calcium 8.5 Current Medications Acetaminophen (Tylenol) 650 mg PO Q6H PRN PRN PRN Reason: Mild Pain (1-3)/Temp > 100.7 F Last Admin: 01/02/19 11:23 Dose: 650 mg Al Hydroxide/Mg Hydroxide (Mylanta Ii) 30 ml PO Q6H PRN PRN PRN Reason: HEARTBURN OR INDIGESTION Albuterol Sulfate (Ventolin Aerosols) 2.5 mg INHALATION Q4H PRN PRN PRN Reason: Shortness of breath, wheezing Amlodipine Besylate (Norvasc) 10 mg PO DAILY [facility] Last Admin: 01/02/19 08:29 Dose: 10 mg Cyclobenzaprine HCl (Flexeril) 10 mg PO TID [facility] Last Admin: 01/02/19 05:22 Dose: 10 mg Enoxaparin Sodium (Lovenox) 40 mg SC DAILY [facility] Last Admin: 01/02/19 08:29 Dose: 40 mg Furosemide (Lasix) 40 mg PO DAILY [facility] Last Admin: 01/02/19 08:29 Dose: 40 mg Hydralazine HCl (Apresoline Iv) 10 mg IV Q6H PRN PRN PRN Reason: for SBP> 160 Last Admin: 12/29/18 10:56 Dose: 10 mg Hydromorphone HCl (Dilaudid Inj) 0.5 mg IV Q4H PRN PRN PRN Reason: BREAKTHROUGH PAIN (>4/10) Cefazolin Sodium 2 gm/ Sodium (Chloride) 110 mls @ 150 mls/hr IV Q8 [facility] Last Admin: 01/02/19 05:22 Dose: 150 mls/hr Ketorolac Tromethamine (Toradol) 30 mg IV Q6H [facility] Stop: 01/04/19 10:01 Last Admin: 01/02/19 08:29 Dose: 30 mg Lisinopril (Zestril) 20 mg PO DAILY [facility] Last Admin: 01/02/19 08:28 Dose: 20 mg Magnesium Hydroxide (Milk Of Magnesia) 30 ml PO DAILY [facility] Last Admin: 01/02/19 08:26 Dose: Not Given Ondansetron HCl (Zofran) 4 mg IV Q8H PRN PRN PRN Reason: NAUSEA/VOMITING Oxycodone HCl (Oxyir) 10 mg PO Q4H PRN PRN PRN Reason: Moderate Pain (4-6/10) Last Admin: 01/02/19 11:22 Dose: 10 mg Pantoprazole Sodium (Protonix) 40 mg PO BID [facility] Last Admin: 01/02/19 08:26 Dose: Not Given Senna (Senokot) 2 tablet PO BID [facility] Last Admin: 01/02/19 08:27 Dose: Not Given Sodium Chloride () 5 - 15 ml IV UD PRN PRN Reason: SALINE FLUSH Last Admin: 01/02/19 05:22 Dose: 10 ml Medical Necessity - Tobacco Use Smoking Status: Never smoker Assessment/Plan All Active Problems (Last Updated 12/27/18 @ 07:53 by Ruben Sandoval DO) MSSA bacteremia (Acute) Intractable left lower back pain (Acute) Acute cystitis (Acute) Muscle tear (Acute) 1. Bacteremia with unclear source had positive MSSA cultures; repeat blood cultures from md 12/31 are negative TTE showed no evidence of vegetation; discussed with Dr Berrios ID; will not do TORRES for now and change the management. To have PICC line inserted today. Duration of IV antibiotics to be determined by ID. 2. Sepsis due to bacteremia: SIRS criteria now resolved. 3. 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 Hypertension: on amlodipine, lisinopril. Fairly well controlled. 5. Acute on chronic back pain: stable. on ketorolac and cyclobenzaprine. If back pain worsens, to consider MRI 6. DVT prophylaxis: lovenox Disposition: for discharge to TCU once medically cleared. Code Visit Inpatient E&M: 94599 Subs Hosp L2
--- NOTE | 2019-01-02 13:49 | PN_ITS ---
Patient Problems: Active and Suspected Problems (Last Updated 12/27/18 @ 07:53 by Ruben Sandoval DO) MSSA bacteremia (Acute) Subjective: Patient seen and examined. He had no complaints. Review of systems otherwise negative. Repeat blood cultures are negative. Discussed with ID, to have PICC line inserted today. Labs and vitals reviewed. Vitals/I&O's: Vital Signs Temp Pulse Resp BP Pulse Ox 97.6 F L 81 18 145/89 H 96 01/02/19 08:15 01/02/19 08:15 01/02/19 08:15 01/02/19 08:15 01/02/19 08:15 Oxygen Flow Rate (L/min) 2 Oxygen Delivery Method Room Air Weight: 378 lb 15.594 oz Body Mass Index (BMI) 56.7 Intake and Output for Last 24 Hours 12/31/18 01/01/19 01/02/19 23:59 23:59 23:59 Intake Total 2302 / 2302 918 / 918 750 / 750 Balance 2302 / 2302 918 / 918 750 / 750 General: Well nourished HEENT: Atraumatic, PERRLA, EOMI, Normocephalic Oral: Moist Mucosa Neck: Supple, No JVD, Negative Carotid Bruits Lungs: Clear to auscultation, Normal air movement, No rhonchi, No wheeze, No rales Cardiovascular: Regular rate, Regular Rhythm, Normal S1, Normal S2, No murmurs Abdomen: Bowel Sounds Present, Soft, Non Tender, Non-Distended, No Hepato- splenomegaly Extremities: No edema, Capillary Refill Less than 3 Seconds Skin: No rashes, No breakdown Musculoskeletal: No Tenderness to Palpation of Joints or Extremities Lymphatic: No Cervical, Supraclavicular, or Inguinal Adenopathy Neurological: Cranial nerves II-XII grossly intact, Neuro grossly intact, Motor Exam 5/5 strength throughout Psych/Mental Status: Normal Affect, Appropriate, Alert and oriented to time, place, person, mood and affect Microbiology Past 72 Hours 12/29/18 07:42 Blood Culture (Wb) - Left Hand Blood Culture - Preliminary Staphylococcus aureus 12/29/18 07:33 Blood Culture (Wb) - Anticubital Right Blood Culture - Preliminary Staphylococcus aureus 12/28/18 17:00 Blood Culture (Wb) - Anticubital Right Bacteria Detection (PCR) - Final Staphylococcus aureus 12/28/18 17:00 Blood Culture (Wb) - Anticubital Right Blood Culture - Final Staphylococcus aureus 12/28/18 17:20 Urine Catheter - Catheter Urine Culture - Final Staphylococcus aureus Laboratory Results 01/02/19 05:37: Sodium 136, Potassium 4.0, Chloride 101, Carbon Dioxide 26.0, Anion Gap 9, BUN 16, Creatinine 1.13, Estim Creat Clear Calc 68.94, Est GFR (MDRD) Af Amer 86, Est GFR (MDRD) Non-Af 71, BUN/Creatinine Ratio 14.2, Glucose 137 H, Calcium 8.5 Current Medications Acetaminophen (Tylenol) 650 mg PO Q6H PRN PRN PRN Reason: Mild Pain (1-3)/Temp > 100.7 F Last Admin: 01/02/19 11:23 Dose: 650 mg Al Hydroxide/Mg Hydroxide (Mylanta Ii) 30 ml PO Q6H PRN PRN PRN Reason: HEARTBURN OR INDIGESTION Albuterol Sulfate (Ventolin Aerosols) 2.5 mg INHALATION Q4H PRN PRN PRN Reason: Shortness of breath, wheezing Amlodipine Besylate (Norvasc) 10 mg PO DAILY [facility] Last Admin: 01/02/19 08:29 Dose: 10 mg Cyclobenzaprine HCl (Flexeril) 10 mg PO TID [facility] Last Admin: 01/02/19 05:22 Dose: 10 mg Enoxaparin Sodium (Lovenox) 40 mg SC DAILY [facility] Last Admin: 01/02/19 08:29 Dose: 40 mg Furosemide (Lasix) 40 mg PO DAILY [facility] Last Admin: 01/02/19 08:29 Dose: 40 mg Hydralazine HCl (Apresoline Iv) 10 mg IV Q6H PRN PRN PRN Reason: for SBP> 160 Last Admin: 12/29/18 10:56 Dose: 10 mg Hydromorphone HCl (Dilaudid Inj) 0.5 mg IV Q4H PRN PRN PRN Reason: BREAKTHROUGH PAIN (>4/10) Cefazolin Sodium 2 gm/ Sodium (Chloride) 110 mls @ 150 mls/hr IV Q8 [facility] Last Admin: 01/02/19 05:22 Dose: 150 mls/hr Ketorolac Tromethamine (Toradol) 30 mg IV Q6H [facility] Stop: 01/04/19 10:01 Last Admin: 01/02/19 08:29 Dose: 30 mg Lisinopril (Zestril) 20 mg PO DAILY [facility] Last Admin: 01/02/19 08:28 Dose: 20 mg Magnesium Hydroxide (Milk Of Magnesia) 30 ml PO DAILY [facility] Last Admin: 01/02/19 08:26 Dose: Not Given Ondansetron HCl (Zofran) 4 mg IV Q8H PRN PRN PRN Reason: NAUSEA/VOMITING Oxycodone HCl (Oxyir) 10 mg PO Q4H PRN PRN PRN Reason: Moderate Pain (4-6/10) Last Admin: 01/02/19 11:22 Dose: 10 mg Pantoprazole Sodium (Protonix) 40 mg PO BID [facility] Last Admin: 01/02/19 08:26 Dose: Not Given Senna (Senokot) 2 tablet PO BID [facility] Last Admin: 01/02/19 08:27 Dose: Not Given Sodium Chloride () 5 - 15 ml IV UD PRN PRN Reason: SALINE FLUSH Last Admin: 01/02/19 05:22 Dose: 10 ml Medical Necessity - Tobacco Use Smoking Status: Never smoker Assessment/Plan All Active Problems (Last Updated 12/27/18 @ 07:53 by Ruben Sandoval DO) MSSA bacteremia (Acute) Intractable left lower back pain (Acute) Acute cystitis (Acute) Muscle tear (Acute) 1. Bacteremia with unclear source * had positive MSSA cultures; repeat blood cultures from md 12/31 are negative * TTE showed no evidence of vegetation; discussed with Dr Berrios ID; will not do TORRES for now and change the management. * To have PICC line inserted today. Duration of IV antibiotics to be determined by ID. * 2. Sepsis due to bacteremia: SIRS criteria now resolved. 3. 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 * conservative management for now * PT/OT on board * 4. Hypertension: on amlodipine, lisinopril. Fairly well controlled. 5. Acute on chronic back pain: stable. on ketorolac and cyclobenzaprine. If back pain worsens, to consider MRI 6. DVT prophylaxis: lovenox Disposition: for discharge to TCU once medically cleared. Code Visit Inpatient E&M: 06616 Subs Hosp L2
[2019-01-02 14:25] VITALS: BP 137/84; PULSE 83; RESP 20; TEMP 36.4; O2SAT 98
--- NOTE | 2019-01-02 15:34 | CASEMGMT ---
Addendum entered by Shamika Bright 01/02/19 16:12: YUSEF received call from Francine with TCU stating pre-cert has been approved and pt is able to discharge to TCU today. Physician, Charge Nurse and RN updated. SW update pt on approval to TCU. YUSEF placed a call to pt's Lenard and updated her that pt has been approved to go to TCU today. Lenard states understanding. Plan: Discharge to TCU today. Original Note: Social Work Note YUSEF placed a call to Francine with TCU, left message asking if she has an update regarding pt's pre-cert. YUSEF waiting for call back. Plan: TCU Shamika Bright PARTS WASHER, BEREAVEMENT PROGRAM COORDINATOR
--- NOTE | 2019-01-02 16:06 | PCM.TXEXTCAR ---
- Diet 12/28/18 20:13 Diet: Cardiac/Low Cholesterol Food consistency:: Regular Liquid Consistency:: Regular/Thin - Routine Orders/Code Status Enema Type: Fleetz Enema Frequency: Daily PRN Suppository Type: Dulcolax 10mg Suppository Frequency: Daily PRN O2 Frequency: PRN Keep PO Greater than or Equal to (%): 90 Routine Lab Work: CBC, BMP - Check CBC and BMP weekly - Wound(s) hernan lower legs Wound Type: small scatter scabs - Therapies Weight Bearing: Full weight bearing Physical Therapy: Eval and Treat Occupational Therapy: Eval and Treat - Allergies/Procedures Done in Hospital Allergies/Adverse Reactions: Allergies No Known Allergies Allergy (Verified 12/27/18 04:34) Procedures: 2-D Echocardiogram - Type of Care/Length of Stay Estimated LOS: Convalescent Care Less Than 30 days Type of Care Needed: Skilled Rehab Potential: Good Prognosis: Good - Additional Orders/Day of Discharge Additional Orders: check CBC and BMP weekly and send results to PCP and ID- Dr Russell Day of Discharge: 01/02/19 - Dietary and Speech Recommendations Dietitian Recommendations/Changes: Rec referral to weight loss clinic. Pt would like to lose wt. Outpatient clinic's flyer given for weight loss program. - Follow Up Care Primary Care Physician: Elias Rachel MD [Primary Care Provider] - Please follow up with your Primary Care Physician in: one week Please Follow Up With: Gregorio Russell MD When: 2-3 weeks
--- NOTE | 2019-01-02 16:09 | DS.PCM_ITS ---
Discharge Date and Diagnosis - Problem List Patient Problems: Active and Suspected Problems (Last Updated 12/27/18 @ 07:53 by Ruben Sandoval DO) MSSA bacteremia (Acute) Date of Admission: 12/28/18 Date of Discharge: 01/02/19 - Primary Discharge Diagnosis Active and Suspected Problems (Last Updated 12/27/18 @ 07:53 by Ruben Sandoval DO) MSSA bacteremia (Acute) - Secondary Discharge Diagnosis Chronic Problems (Last Updated 12/27/18 @ 07:53 by Ruben Sandoval DO) Hypertension (Chronic) Hospital Course and Treatment Imaging Results: Diagnostic Data Chest X-Ray 12/28/18 16:39 IMPRESSION: Normal x-ray examination of the chest. Electronically Signed: Royal Celis MD at 17:02 EDT Tel , Service support , Abdomen/Pelvis CT 12/28/18 17:45 IMPRESSION: Left psoas muscle enlargement and adjacent retroperitoneal fatty stranding without evidence of adjacent ureter obstruction, psoas abscess, distinct hemorrhage, or ureter stone. Differential includes psoas myositis, psoas strain and early retroperitoneal fibrosis. Consider short interval CT follow-up in 4-8 weeks. Electronically Signed: Royal Celis MD at 18:32 EDT Tel , Service support , Operations: None Procedures: 2-D Echocardiogram Summary of Care Provided: The patient is a 58 year old M with a past medical history as listed who was [facility] with a complaint of [facility]. He had been discharged that very day from the hospital to his [facility] after being admitted for left psoas muscle tear which had been managed conservatively with physical therapy and pain medication. However on arrival in the [facility] he was found to be febrile without an obvious etiology he was brought back to the ED. Labs were only significant for sodium of 133 but otherwise normal. Chest x-ray showed no acute cardia pulmonary process UA showed 2+ bacteria with [address] of the abdomen and pelvis showed left psoas muscle enlargement with adjacent peritoneal fat stranding without any evidence of abscess or hemorrhage. Will therefore emergently managed for acute cystitis and intractable left low back pain due to left psoas muscle enlargement and injury. Was also managed for sepsis possibly due to the UTI. Blood cultures were positive for MSSA. He had a TTE which was essentially unremarkable and showed no evidence of vegetation. He was on IV cefazolin which was continued. IV was consulted. Patient's repeat blood cultures on 12/30/2018 and 12/31/2018 which were negative. Patient had a PICC line inserted on 01/02/2019. Discussed with ID (Dr Russell) about need for TORRES, but ID did not think it was warranted as it would not change the management. He is to have IV cefazolin for a total of 4 weeks. He is to have weekly CBC and BMP results are to be sent to his primary care doctor and infectious disease doctor. Please follow-up with his primary care doctor in 1 week and infectious disease doctor in 2 to 3 weeks. Patient seen and examined prior to discharge. No complaints and felt well. Review of systems otherwise negative. Labs and vitals reviewed. Home medication reviewed and reconciled. o/e: Vital Signs Height 5 ft 8.5 in Weight: 378 lb 15.594 oz Weight in Pounds 379.0 lbs Pulse Ox 98 Temperature 97.5 F Pulse Rate 83 Respiratory Rate 20 Blood Pressure 137/84 Blood Pressure Position Sitting [] General: Well nourished HEENT: Atraumatic, PERRLA, EOMI, Normocephalic Oral: Moist Mucosa Neck: Supple, No JVD, Negative Carotid Bruits Lungs: Clear to auscultation, Normal air movement, No rhonchi, No wheeze, No rales Cardiovascular: Regular rate, Regular Rhythm, Normal S1, Normal S2, No murmurs Abdomen: Bowel Sounds Present, Soft, Non Tender, Non-Distended, No Hepato- splenomegaly Extremities: No edema, Capillary Refill Less than 3 Seconds Skin: No rashes, No breakdown Musculoskeletal: No Tenderness to Palpation of Joints or Extremities Lymphatic: No Cervical, Supraclavicular, or Inguinal Adenopathy Neurological: Cranial nerves II-XII grossly intact, Neuro grossly intact, Motor Exam 5/5 strength throughout Psych/Mental Status: Normal Affect, Appropriate, Alert and oriented to time, place, person, mood and affect Plan as above Patient Problems: Active and Suspected Problems (Last Updated 12/27/18 @ 07:53 by Ruben Sandoval DO) MSSA bacteremia (Acute) - Physical Exam Vital Signs Temp Pulse Resp BP Pulse Ox 97.5 F L 83 20 H 137/84 H 98 01/02/19 14:25 01/02/19 14:25 01/02/19 14:25 01/02/19 14:25 01/02/19 14:25 Oxygen Flow Rate (L/min) 2 Oxygen Delivery Method Room Air Weight: 378 lb 15.594 oz Body Mass Index (BMI) 56.7 Intake and Output for Last 24 Hours 12/31/18 01/01/19 01/02/19 23:59 23:59 23:59 Intake Total 2302 / 2302 918 / 918 750 / 750 Balance 2302 / 2302 918 / 918 750 / 750 Microbiology Past 72 Hours 12/29/18 07:42 Blood Culture - Preliminary Blood Culture (Wb) - Left Hand Staphylococcus aureus 12/29/18 07:33 Blood Culture - Preliminary Blood Culture (Wb) - Anticubital Right Staphylococcus aureus 12/28/18 17:00 Bacteria Detection (PCR) - Final Blood Culture (Wb) - Anticubital Right Staphylococcus aureus Blood Culture - Final Staphylococcus aureus Laboratory Tests Past 24 Hrs 01/02/19 05:37 Sodium 136 Potassium 4.0 Chloride 101 Carbon Dioxide 26.0 Anion Gap 9 BUN 16 Creatinine 1.13 Estim Creat Clear Calc 68.94 Est GFR (MDRD) Af Amer 86 Est GFR (MDRD) Non-Af 71 BUN/Creatinine Ratio 14.2 Glucose 137 H Calcium 8.5 Discharge Diet: Low fat/ Low Cholesterol Discharge Activity: Return to Normal Activity Weight Bearing Status: Weight bearing as tolerated Call your doctor if you observe: Fever of 101 or Higher, Uncontrolled pain Home Medications: Medications to take at Discharge Albuterol Inhaler [Ventolin Hfa] 1 - 2 puff INHALATION Q4H PRN PRN #1 inhaler 08/08/14 Cyclobenzaprine [Flexeril] 10 mg PO TID PRN #10 tab 12/23/18 Acetaminophen [Tylenol] 1,000 mg PO Q8H 12/28/18 Ibuprofen 600 mg PO 4X/DAY PRN #1 tablet 12/28/18 Lisinopril [Zestril] 10 mg PO DAILY 12/28/18 Cefazolin 2 gm IV Q8 25 Days #75 vial 01/02/19 Following Prescrptions Were Given to Patient: Cefazolin 2 gm IV Q8 25 Days #75 vial Primary Care Physician: Elias Rachel MD [Primary Care Provider] - Please follow up with your Primary Care Physician in: one week Please Follow Up With: Gregorio Russell MD When: 2-3 weeks Additional Instructions: weekly CBC and BMP whilst he is on IV cefazolin. Results to be sent to PCP and Infectious Disease Dr- Dr Russell [facility] Minutes spent on discharge:: 45 Patient Condition:: Stable Medical Necessity - Tobacco Use Smoking Status: Never smoker Meaningful Use Info Meaningful Use Diagnoses (Choose all that apply): None applicable Code Visit Inpatient E&M: 47420 Disch Hosp
--- NOTE | 2019-01-02 17:04 | NURSING ---
called report to Dereck in TCU at this time. Will transfer pt after dinner.
--- NOTE | 2019-01-02 19:45 | PCM.PN.ID ---
Subjective: Intermittent back pain, no fever - Physical Exam General: Alert, Cooperative Lungs: Clear to auscultation, Normal air movement Cardiovascular: Regular rate, Regular Rhythm Abdomen: Soft, Non Tender, Non-Distended Skin: No rashes Vital Signs Temp Pulse Resp BP Pulse Ox 97.5 F L 83 20 H 137/84 H 98 01/02/19 14:25 01/02/19 14:25 01/02/19 14:25 01/02/19 14:25 01/02/19 14:25 Oxygen Flow Rate (L/min) 2 Oxygen Delivery Method Room Air Weight: 171.9 kg Body Mass Index (BMI) 56.7 Intake and Output for Last 24 Hours 12/31/18 01/01/19 01/02/19 23:59 23:59 23:59 Intake Total 2302 / 2302 918 / 918 1726 / 1726 Balance 2302 / 2302 918 / 918 1726 / 1726 Microbiology Past 72 Hours 12/29/18 07:42 Blood Culture - Preliminary Blood Culture (Wb) - Left Hand Staphylococcus aureus 12/29/18 07:33 Blood Culture - Preliminary Blood Culture (Wb) - Anticubital Right Staphylococcus aureus 12/28/18 17:00 Bacteria Detection (PCR) - Final Blood Culture (Wb) - Anticubital Right Staphylococcus aureus Blood Culture - Final Staphylococcus aureus Laboratory Tests Past 24 Hrs 01/02/19 05:37 Sodium 136 Potassium 4.0 Chloride 101 Carbon Dioxide 26.0 Anion Gap 9 BUN 16 Creatinine 1.13 Estim Creat Clear Calc 68.94 Est GFR (MDRD) Af Amer 86 Est GFR (MDRD) Non-Af 71 BUN/Creatinine Ratio 14.2 Glucose 137 H Calcium 8.5 Medical Necessity - Tobacco Use Smoking Status: Never smoker Route of nutrition/ use of supplements: [] Nutritional Intake: [] IV Site: [] Villagran Catheter: [] - Assessment/Plan Antibiotics: [] Assessment/Plan: [] Active and Suspected Problems (Last Updated 12/27/18 @ 07:53 by Ruben Sandoval DO) Intractable left lower back pain (Acute) Acute cystitis (Acute) sepsis (fever, tachycardia) due to MSSA bacteremia likely skin source. Repeat bcx neg since 12/30. Narrowed abx to cefazolin. No sign of splinter hemorrhages/janeway/osler on hands or feet. Ok for d/c on cefazolin, stop date 01/27. Weekly bmp, cbc while on iv abx. Will follow
== END 2019-01-02 17:55 | disposition skilled nursing facility (03) | DRG 872 ==
LOC: ED 16:41 → MS3 19:49
PROVIDERS: Admitting Provider Hospitalist; Emergency Provider Emergency Medicine; Family Provider Family Medicine; PCP Family Medicine; Referring Provider Hospitalist; Visit Provider Student in an Organized Health Care Education/Training Program
DX: A41.01 Sepsis due to Methicillin susceptible Staphylococcus aureus (principal); N39.0 Urinary tract infection, site not specified; Z68.43 Body mass index [BMI] 50.0-59.9, adult; S39.012A Strain of muscle, fascia and tendon of lower back, initial encounter; G89.29 Other chronic pain; M54.5 Low back pain; I10 Essential (primary) hypertension; E66.9 Obesity, unspecified; R60.0 Localized edema
CPT/HCPCS: 36415; 36569; 71045; 74177; 80048; 80053; 81001; 83605; 85025; 87040; 87077; 87086; 87088; 87149; 87186; 93306; 97110; 97116; 97161; 97166; 97530; 97802; 99284; J7030; J7040; Q9957; Q9967; A4216; C8929; J0696

== ENCOUNTER 2019-01-02 18:15 | Inpatient (IN) | payer OTHER, SELFPAY ==
[2018-12-28 20:17] VITALS: BMI 56.7
[2019-01-02 18:19] VITALS: BP 157/89; PULSE 93; RESP 20; TEMP 37.3; O2SAT 94; BMI 58.3
--- NOTE | 2019-01-02 18:56 | NURSING ---
pt arrived via w/ch from [facility] @[id number]
--- NOTE | 2019-01-02 18:58 | NURSING ---
PT REQUESTING A TRAPEZE TO HELP HIM MOVE UP IN BED. REPORTED TO PAOLA KAUR
--- NOTE | 2019-01-02 20:06 | PCM.HP.STD ---
Problem List (1) Sepsis Status: Acute (2) Muscle spasm Status: Acute (3) MSSA bacteremia Status: Acute (4) Intractable left lower back pain Status: Acute (5) Acute cystitis Status: Acute (6) Hypertension Status: Chronic (7) Muscle tear Status: Acute History of Present Illness Date of Admission: 01/02/19 Chief Complaint: Here for rehabilitation, strengthening, intravenous antibiotics, prior to discharge home with spouse. The patient is a 58 year old Male with below past medical history presented to [facility] Emergency Department 12/28/2018 with fever. 12/27/2018 CT Lumbar spine showed multilevel degenerative changes. 12/28/2018 Chest X-ray normal. 12/28/2018 CT abdomen/pelvis showed left psoas muscle enlargement with adjacent retroperitoneal fatty stranding. On his way to [facility] for intractable low back pain after hospitalization, Developed fever, sent to Emergency Department. Urine brown. WBC 9.8, Hemoglobin 13, Hematocrit 39, Platelet 222. LFT normal, UA consistent with UTI, urine culture sent. Blood culture sent. Tylenol, Ibuprofen, Rocephin given. 12/28/2018 Admit to Hospital. Rocephin IV for UTI. Pain control for low back pain, left psoas muscle injury. Blood pressure control with amlodipine, lisinopril, hydralazine PRN. 12/29/2018 Echo Left ventricular systolic function normal. EF 60% No vegetations. TORRES not recommended because it would not loom changer. 12/29/2018 Dr. Russell recommended Cefazolin for MSSA bacteremia. PICC line for [facility] intravenous antibiotics x 4 weeks. 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 Toradol, Flexeril for low back pain. 01/02/2019 Admit to TCU with debility, here for rehabilitation, strengthening, intravenous antibiotics prior to discharge home with spouse. Past Medical History Past Medical History (Chronic Problems): Chronic Problems (Last Updated 12/27/18 @ 07:53 by Ruben Sandoval DO) Hypertension (Chronic) Medical History: Medical History (Last Updated 12/27/18 @ 07:53 by Ruben Sandoval DO) Hyperlipidemia E78.5 Hypothyroid E03.9 RO (obstructive sleep apnea) G47.33 HTN (hypertension) I10 Allergies No Known Allergies Allergy (Verified 12/27/18 04:34) Home Medications: Ambulatory Orders Medication Instructions Recorded Albuterol Inhaler [Ventolin Hfa] 1 - 2 puff INHALATION Q4H PRN PRN 08/08/14 #1 inhaler Cyclobenzaprine [Flexeril] 10 mg PO TID PRN #10 tab 12/23/18 Acetaminophen [Tylenol] 1,000 mg PO Q8H 12/28/18 Ibuprofen 600 mg PO 4X/DAY PRN #1 tablet 12/28/18 Lisinopril [Zestril] 10 mg PO DAILY 12/28/18 Cefazolin 2 gm IV Q8 01/02/19 Surgical History: noncontributory, - Psychiatric History: No pertinent psych hx Lives: Spouse/ Significant Other Smoking Status: Never smoker Tobacco Use: Non-smoker Alcohol: None Drugs: None - *Family History Maternal Family History: Family History (Last Updated 12/27/18 @ 07:53 by Ruben Sandoval DO) Other CAD (coronary artery disease) History Items: No pertinent history Paternal Family History: Family History (Last Updated 12/27/18 @ 07:53 by Ruben Sandoval DO) Other CAD (coronary artery disease) History Items: No pertinent history Review of Systems Constitutional: Denies: Chills, Fever, Weight Change HEENT: Denies: Head Aches, Sinus Congestion, Sinus Drainage Cardiovascular: Denies: Chest Pain, Palpitations Respiratory: Denies: Cough, Shortness of breath at rest, Sputum production Gastrointestinal: Denies: Abdominal Pain, Nausea, Vomiting Genitourinary: Denies: Dysuria Musculoskeletal: Reports: Back Pain. Denies: Joint Pain, Joint Tenderness Skin: Denies: Rash, Wounds Neurological: Denies: Numbness, Tingling, Focal weakness Psychiatric: Denies: Anxiety, Depression, Homicidal Ideations, Suicidal Ideations Hematologic/ Lymphatic: Denies: Easy Bruising, Easy Bleeding VTE Information - Inpt Only VTE Present on Admission: No VTE Mechan Device Prophylaxis: Knee High ELLE Hose VTE Pharm Prophylaxis ordered?: Yes Patient Problems: Active and Suspected Problems (Last Updated 12/27/18 @ 07:53 by Rubne Sandoval DO) Sepsis (Acute) Muscle spasm (Acute) - Physical Exam General: Alert, Oriented x3, Cooperative HEENT: Atraumatic, PERRLA, EOMI, Normocephalic Neck: Supple, No JVD, Negative Carotid Bruits Lungs: Clear to auscultation, Normal air movement Cardiovascular: Regular rate, No murmurs Abdomen: Bowel Sounds Present, Soft, Non Tender Extremities: No edema, Capillary Refill Less than 3 Seconds, - - PICC Left upper extremity. Skin: No rashes, No breakdown Musculoskeletal: No Tenderness to Palpation of Joints or Extremities Neurological: Cranial nerves II-XII grossly intact Psych/Mental Status: Normal Affect, Appropriate Vital Signs Temp Pulse Resp BP Pulse Ox 99.2 F H 93 20 H 157/89 H 94 01/02/19 18:19 01/02/19 18:19 01/02/19 18:19 01/02/19 18:19 01/02/19 18:19 Oxygen Delivery Method Room Air Weight: 173.9 kg Body Mass Index (BMI) 58.3 Assessment/Plan All Active Problems (Last Updated 12/27/18 @ 07:53 by Ruben Sandoval DO) MSSA bacteremia (Acute) Sepsis (Acute) Muscle spasm (Acute) Intractable left lower back pain (Acute) Acute cystitis (Acute) Muscle tear (Acute) 58 year old male with below past medical history hospitalized for sepsis secondary to MSSA bacteremia secondary to urinary tract infection, complicated by left psoas muscle injury, intractable low back pain, admitted to TCU with debility, here for rehabilitation, strengthening, intravenous antibiotics, prior to discharge home with spouse. Debility - PT/OT. Pain - Tylenol 1000MG Q8H, Ibuprofen 600MG 4x/day PRN, Tramadol 50MG Q6H PRN moderate pain, Oxycodone 10MG Q4H PRN severe pain. Bowel - Miralax 17GM daily, Senokot 1 tablet BID, Dulcolax 10MG daily PRN. Pneumonia vaccination - Administer Prevnar 13 and/or Pneumovax 23 as necessary. DVT prophylaxis - Lovenox 40MG SC daily. Shortness of breath - Albuterol MDI 2 puffs Q4H PRN. MSSA bacteremia - Cefazolin 2GM IV Q8H, 4 weeks course, stop date per Dr. Russell. Muscle spasm - Baclofen 10MG TID. Hypertension - Lisinopril 10MG daily.
--- NOTE | 2019-01-02 20:18 | HP.PCM_ITS ---
Problem List (1) Sepsis Status: Acute (2) Muscle spasm Status: Acute (3) MSSA bacteremia Status: Acute (4) Intractable left lower back pain Status: Acute (5) Acute cystitis Status: Acute (6) Hypertension Status: Chronic (7) Muscle tear Status: Acute History of Present Illness Date of Admission: 01/02/19 Chief Complaint: Here for rehabilitation, strengthening, intravenous antibiotics, prior to discharge home with spouse. The patient is a 58 year old Male with below past medical history presented to [facility] Emergency Department 12/28/2018 with fever. 12/27/2018 CT Lumbar spine showed multilevel degenerative changes. 12/28/2018 Chest X-ray normal. 12/28/2018 CT abdomen/pelvis showed left psoas muscle enlargement with adjacent retroperitoneal fatty stranding. On his way to [facility] for intractable low back pain after hospitalization, Developed fever, sent to Emergency Department. Urine brown. WBC 9.8, Hemoglobin 13, Hematocrit 39, Platelet 222. LFT normal, UA consistent with UTI, urine culture sent. Blood culture sent. Tylenol, Ibuprofen, Rocephin given. 12/28/2018 Admit to Hospital. Rocephin IV for UTI. Pain control for low back pain, left psoas muscle injury. Blood pressure control with amlodipine, lisinopril, hydralazine PRN. 12/29/2018 Echo Left ventricular systolic function normal. EF 60% No vegetations. 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 12/29/2018 Dr. Russell recommended Cefazolin for MSSA bacteremia. PICC line for jail intravenous antibiotics x 4 weeks. 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 Toradol, Flexeril for low back pain. 01/02/2019 Admit to TCU with debility, here for rehabilitation, strengthening, intravenous antibiotics prior to discharge home with spouse. Past Medical History Past Medical History (Chronic Problems): Chronic Problems (Last Updated 12/27/18 @ 07:53 by Ruben Sandoval DO) Hypertension (Chronic) Medical History: Medical History (Last Updated 12/27/18 @ 07:53 by Ruben Sandoval DO) Hyperlipidemia E78.5 Hypothyroid E03.9 RO (obstructive sleep apnea) G47.33 HTN (hypertension) I10 Allergies No Known Allergies Allergy (Verified 12/27/18 04:34) Home Medications: Ambulatory Orders Medication Instructions Recorded Albuterol Inhaler [Ventolin Hfa] 1 - 2 puff INHALATION Q4H PRN PRN 08/08/14 #1 inhaler Cyclobenzaprine [Flexeril] 10 mg PO TID PRN #10 tab 12/23/18 Acetaminophen [Tylenol] 1,000 mg PO Q8H 12/28/18 Ibuprofen 600 mg PO 4X/DAY PRN #1 tablet 12/28/18 Lisinopril [Zestril] 10 mg PO DAILY 12/28/18 Cefazolin 2 gm IV Q8 01/02/19 Surgical History: noncontributory, - Psychiatric History: No pertinent psych hx Lives: Spouse/ Significant Other Smoking Status: Never smoker Tobacco Use: Non-smoker Alcohol: None Drugs: None - *Family History Maternal Family History: Family History (Last Updated 12/27/18 @ 07:53 by Ruben Sandoval DO) Other CAD (coronary artery disease) History Items: No pertinent history Paternal Family History: Family History (Last Updated 12/27/18 @ 07:53 by Ruben Sandoval DO) Other CAD (coronary artery disease) History Items: No pertinent history Review of Systems Constitutional: Denies: Chills, Fever, Weight Change HEENT: Denies: Head Aches, Sinus Congestion, Sinus Drainage Cardiovascular: Denies: Chest Pain, Palpitations Respiratory: Denies: Cough, Shortness of breath at rest, Sputum production Gastrointestinal: Denies: Abdominal Pain, Nausea, Vomiting Genitourinary: Denies: Dysuria Musculoskeletal: Reports: Back Pain. Denies: Joint Pain, Joint Tenderness Skin: Denies: Rash, Wounds Neurological: Denies: Numbness, Tingling, Focal weakness Psychiatric: Denies: Anxiety, Depression, Homicidal Ideations, Suicidal Ideations Hematologic/ Lymphatic: Denies: Easy Bruising, Easy Bleeding VTE Information - Inpt Only VTE Present on Admission: No VTE Mechan Device Prophylaxis: Knee High ELLE Hose VTE Pharm Prophylaxis ordered?: Yes Patient Problems: Active and Suspected Problems (Last Updated 12/27/18 @ 07:53 by Ruben Sandoval DO) Sepsis (Acute) Muscle spasm (Acute) - Physical Exam General: Alert, Oriented x3, Cooperative HEENT: Atraumatic, PERRLA, EOMI, Normocephalic Neck: Supple, No JVD, Negative Carotid Bruits Lungs: Clear to auscultation, Normal air movement Cardiovascular: Regular rate, No murmurs Abdomen: Bowel Sounds Present, Soft, Non Tender Extremities: No edema, Capillary Refill Less than 3 Seconds, - - PICC Left upper extremity. Skin: No rashes, No breakdown Musculoskeletal: No Tenderness to Palpation of Joints or Extremities Neurological: Cranial nerves II-XII grossly intact Psych/Mental Status: Normal Affect, Appropriate Vital Signs Temp Pulse Resp BP Pulse Ox 99.2 F H 93 20 H 157/89 H 94 01/02/19 18:19 01/02/19 18:19 01/02/19 18:19 01/02/19 18:19 01/02/19 18:19 Oxygen Delivery Method Room Air Weight: 173.9 kg Body Mass Index (BMI) 58.3 Assessment/Plan All Active Problems (Last Updated 12/27/18 @ 07:53 by Ruben Sandoval DO) MSSA bacteremia (Acute) Sepsis (Acute) Muscle spasm (Acute) Intractable left lower back pain (Acute) Acute cystitis (Acute) Muscle tear (Acute) 58 year old male with below past medical history hospitalized for sepsis secondary to MSSA bacteremia secondary to urinary tract infection, complicated by left psoas muscle injury, intractable low back pain, admitted to TCU with debility, here for rehabilitation, strengthening, intravenous antibiotics, prior to discharge home with spouse. * Debility - PT/OT. * Pain - Tylenol 1000MG Q8H, Ibuprofen 600MG 4x/day PRN, Tramadol 50MG Q6H PRN moderate pain, Oxycodone 10MG Q4H PRN severe pain. * Bowel - Miralax 17GM daily, Senokot 1 tablet BID, Dulcolax 10MG daily PRN. * Pneumonia vaccination - Administer Prevnar 13 and/or Pneumovax 23 as necessary. * DVT prophylaxis - Lovenox 40MG SC daily. * Shortness of breath - Albuterol MDI 2 puffs Q4H PRN. * MSSA bacteremia - Cefazolin 2GM IV Q8H, 4 weeks course, stop date per Dr. Russell. * Muscle spasm - Baclofen 10MG TID. * Hypertension - Lisinopril 10MG daily.
[2019-01-02] MEDS: Acetaminophen 500 MG Tablet 1000 MG PO (21:51)
[2019-01-02] MEDS: 0.9% NaCl PICC Flush IV (21:52)
[2019-01-02] MEDS: 0.9% NaCl IVPB Med Flush (250 mL) 15 ML IV (21:53)
--- NOTE | 2019-01-02 21:55 | NURSING ---
Code status discussed with pt, wishes to be a full code.
[2019-01-02] MEDS: Cefazolin 2 GM in 0.9% Normal Saline 100 ML IV (22:09)
[2019-01-03] MEDS: Ibuprofen 600 MG Tablet PO ×3 (00:50→19:29)
[2019-01-03] MEDS: Menthol/Lanolin/Calamine/Znox 113 GM Tube 1 APPLIC TOPICAL ×2 (04:51→22:12)
[2019-01-03] MEDS: Lisinopril 10 MG Tablet PO (04:53)
[2019-01-03] MEDS: Acetaminophen 500 MG Tablet 1000 MG PO ×3 (04:53→22:01)
[2019-01-03] MEDS: Enoxaparin 40 MG/0.4 ML Syringe SC (04:53)
[2019-01-03] MEDS: 0.9% NaCl PICC Flush IV ×4 (04:54→22:07)
[2019-01-03] MEDS: Cefazolin 2 GM in 0.9% Normal Saline 100 ML IV ×3 (05:08→22:08)
[2019-01-03 05:31] LABS: Anion Gap 6 (5-15); BUN 13 mg/dL (7-18); BUN/Creat Ratio 11.7 RATIO (10-20); Calcium,Total 8.7 mg/dL (8.5-10.1); Chloride 102 mmol/L (98-107); Creatinine, Serum 1.11 mg/dL (0.70-1.30); EST Glomerular Filtration Rate 72 mL/min (>60); Est Glom Filt Rate - Afr Amer 87 mL/min (>60); Estimated Creatinine Clearance 70.18 ml/min; Glucose 125 mg/dL (74-106); Potassium 4.3 mmol/L (3.5-5.1); Sodium Level 139 mmol/L (136-145)
[2019-01-03 05:38] LABS: Absolute Lymphocyte Count 1.11 X10^3/ul (0.83-4.51); Absolute Neutrophil Count 6.3 X10^3/uL (2.0-7.7); Basophil# 0.02 X10^3/uL; Basophil% 0.2 % (0-1); Eosinophil# 0.27 X10^3/uL; Hematocrit 37.9 % (40-54); Hemoglobin 12.3 g/dl (13.0-16.5); Lymphocyte # 1.11 X10^3/ul (4.0); Lymphocyte % 12.5 % (19-41); Mean Corp Hgb Conc 32.5 g/gl (32-36); Mean Corpuscular Hgb 29.9 pg (27.0-32.0); Mean Corpuscular Volume 92.2 fL (80-94); Mean Platelet Vol. 10.2 fl (6.2-12.0); Monocyte# 1.14 X10^3/uL; Monocyte% 12.8 % (0-10); Neutrophil # 6.28 X10^3/uL (2.7-7.7); Neutrophil % 70.6 % (47-70); Platelet Count 300 K/mm3 (150-450); RBC Distribution Width CV 13.3 % (11.6-14.6); RBC Distribution Width SD 43.7 fl (35.1-43.9); Red Blood Count 4.11 M/mm3 (4.6-6.2); White Blood Count 8.9 K/mm3 (4.4-11.0)
[2019-01-03 05:41] LABS: POSITIVE COUNT NO; POSITIVE DIFFERENTIAL NO; POSITIVE MORPHOLOGY NO
[2019-01-03] MEDS: Baclofen 10 MG Tablet PO ×3 (09:22→17:18)
[2019-01-03] MEDS: Tuberculin,Purif.prot.deriv. 50 TU/ML Vial 5 ML ID (09:23)
--- NOTE | 2019-01-03 11:16 | PN.ID_ITS ---
Patient Problems: Active and Suspected Problems (Last Updated 12/27/18 @ 07:53 by Ruben Sandoval DO) Sepsis (Acute) Muscle spasm (Acute) Subjective: Feeling ok, but still having a lot of back pain, no fever - Physical Exam General: Alert, Cooperative, No apparent distress Lungs: Clear to auscultation, Normal air movement Cardiovascular: Regular rate, Regular Rhythm Abdomen: Soft, Non Tender, Non-Distended Skin: No rashes Vital Signs Temp Pulse Resp BP Pulse Ox 99.2 F H 93 20 H 157/89 H 94 01/02/19 18:19 01/02/19 18:19 01/02/19 18:19 01/02/19 18:19 01/02/19 18:19 Oxygen Delivery Method Room Air Weight: 171.6 kg Body Mass Index (BMI) 58.3 Intake and Output for Last 24 Hours 01/01/19 01/02/19 01/03/19 23:59 23:59 23:59 Intake Total 360 / 360 901 / 901 Balance 360 / 360 901 / 901 Laboratory Tests Past 24 Hrs 01/03/19 01/03/19 05:04 05:04 WBC 8.9 RBC 4.11 L Hgb 12.3 L Hct 37.9 L MCV 92.2 MCH 29.9 MCHC 32.5 RDW 13.3 RDW Differential 43.7 Plt Count 300 MPV 10.2 Immature Gran % (Auto) 0.900 Neut % (Auto) 70.6 H Lymph % (Auto) 12.5 L [place] % (Auto) 12.8 H Eos % (Auto) 3.0 Baso % (Auto) 0.2 Absolute Neuts (auto) 6.3 Absolute Lymphs (auto) 1.11 Total Counted Not Reportable Sodium 139 Potassium 4.3 Chloride 102 Carbon Dioxide 31.0 Anion Gap 6 BUN 13 Creatinine 1.11 Estim Creat Clear Calc 70.18 Est GFR (MDRD) Af Amer 87 Est GFR (MDRD) Non-Af 72 BUN/Creatinine Ratio 11.7 Glucose 125 H Calcium 8.7 Medical Necessity - Tobacco Use Smoking Status: Never smoker Tobacco Use: Non-smoker Route of nutrition/ use of supplements: [] Nutritional Intake: [] IV Site: [] Villagran Catheter: [] - Assessment/Plan Antibiotics: [] Assessment/Plan: [] Active and Suspected Problems (Last Updated 12/27/18 @ 07:53 by Ruben Sandoval DO) Sepsis (Acute) Muscle spasm (Acute) sepsis (fever, tachycardia) due to MSSA bacteremia likely skin source. Repeat bcx neg since 12/30. Narrowed abx to cefazolin. No sign of splinter hemorrhages/janeway/osler on hands or feet. Continue on cefazolin, stop date 01/27. Weekly bmp, cbc while on iv abx. back pain - with bacteremia, concern for osteo/discitis/epidural abscess. Will order MRI with contrast of L-spine. Will follow
[2019-01-03] MEDS: oxyCODONE 5 MG Tablet 10 MG PO ×3 (13:08→22:10)
--- NOTE | 2019-01-03 13:10 | NURSING ---
Dr Russell was reqesting MRI of lumbar spine to check for abscess/discitis d/t back pain, but pt body capacity to large for MRI machine. Dr Russell notified, new order to cancel test.
[2019-01-03] MEDS: traMADol 50 MG Tablet PO (14:28)
--- NOTE | 2019-01-03 15:10 | CHAPLAIN ---
Type of Pastoral Visit _x__ Initial Visit ___ Follow-up Visit ___ On-call Visit ___ General Patient Visit ___ Spiritual Assessment ___ Family Conference ___ Bereavement ___ Rapid Response ___ Code Blue ___ Other (describe below) Pastoral Care Referral From _x__ Patient ___ Family ___ Nurse ___ Physician ___ Fish Cleaner ___ Director Of Exhibits ___ Other (describe below) Sacrament/Intervention _x__ Active listening ___ Anointing ___ Jew ___ Bereavement ___ Communion _x__ Irish exploration ___ ___ Life review _x__ Prayer ___ Reconciliation ___ Sacrament of Sick _x__ Supportive presence ___ Wedding ___ Other (describe below) Pastoral Comments patient requests a follow up visit to discuss bahai questions; pt also acknowledges desire for personal conversation
[2019-01-03 15:48] VITALS: BP 162/83; PULSE 94; RESP 18; TEMP 36.9; O2SAT 96
[2019-01-03] MEDS: 0.9% NaCl IVPB Med Flush (250 mL) 15 ML IV (22:07)
[2019-01-04] MEDS: oxyCODONE 5 MG Tablet 10 MG PO ×4 (02:16→21:44)
[2019-01-04] MEDS: Ibuprofen 600 MG Tablet PO ×2 (04:32→11:42)
[2019-01-04] MEDS: Lisinopril 10 MG Tablet PO (05:30)
[2019-01-04] MEDS: Enoxaparin 40 MG/0.4 ML Syringe SC (05:30)
[2019-01-04] MEDS: Acetaminophen 500 MG Tablet 1000 MG PO ×3 (05:30→21:44)
[2019-01-04] MEDS: Cefazolin 2 GM in 0.9% Normal Saline 100 ML IV ×3 (05:30→21:44)
[2019-01-04] MEDS: Menthol/Lanolin/Calamine/Znox 113 GM Tube 1 APPLIC TOPICAL ×2 (05:37→21:31)
[2019-01-04] MEDS: Baclofen 10 MG Tablet PO ×3 (07:47→16:55)
--- NOTE | 2019-01-04 09:47 | PCM.PN.RX ---
<Joe Washington D - Last Filed: 01/04/19 09:47> Progress Note - Pharmacy Subjective: TCU Admission Objective: Allergies No Known Allergies Allergy (Verified 12/27/18 04:34) Current Medications Generic Name Dose Route Start Last Admin Trade Name Freq PRN Reason Stop Dose Admin Acetaminophen 1,000 mg 01/02/19 22:00 01/04/19 05:30 Tylenol PO 1,000 mg Q8 ZARI Administration Albuterol Sulfate 2 puff 01/02/19 18:49 Ventolin Hfa (Sp) INHALATION Q4H PRN PRN WHEEZING Baclofen 10 mg 01/03/19 09:00 01/04/19 07:47 Lioresal PO 10 mg TIDCM ZARI Administration Bisacodyl 10 mg 01/02/19 20:26 Dulcolax PO DAILY PRN Constipation Calamine/Phenol 1 applic 01/03/19 06:00 01/04/19 05:37 Calmoseptine Ointment TOPICAL 1 applicatio 0600,2200 ZARI Administration Protocol Enoxaparin Sodium 40 mg 01/03/19 06:00 01/04/19 05:30 Lovenox SC 40 mg DAILY@0600 ZARI Administration Heparin Sodium (Beef Lung) 50 units 01/02/19 19:50 IV UD PRN HEPARIN FLUSH Cefazolin Sodium 2 gm/ Sodium 110 mls @ 150 mls/hr 01/02/19 22:00 01/04/19 05:30 Chloride IV 01/27/19 14:00 150 mls/hr Q8 ZARI Administration Sodium Chloride 250 mls @ 15 mls/hr 01/02/19 19:50 01/03/19 22:07 IV 15 mls/hr .[id number] PRN Administration SALINE FLUSH Ibuprofen 600 mg 01/03/19 08:25 01/04/19 04:32 Motrin PO 600 mg 4X/DAY PRN Administration MILD PAIN (1-3/10) Lisinopril 10 mg 01/03/19 06:00 01/04/19 05:30 Zestril PO 10 mg DAILY ZARI Administration Menthol 1 applic 01/03/19 10:15 01/04/19 04:35 Bengay Vanishing Scent TOPICAL 1 applic TID PRN PRN Administration muscle pain Multi-Ingredient Cream 1 applic 01/03/19 22:00 01/03/19 22:11 Eucerin TOPICAL 1 applicatio QHS ZARI Administration Protocol Oxycodone HCl 10 mg 01/03/19 08:25 01/04/19 09:45 Oxyir PO 10 mg Q4H PRN PRN Administration SEVERE PAIN (6-10/10) Pneumococcal 13-Valent Conj Vacc 0.5 ml 01/04/19 10:00 Prevnar-13 (Pcv-13) IM 01/04/19 10:01 .ONCE ONE Polyethylene Glycol 17 gm 01/03/19 18:03 Miralax PO BID PRN Constipation Senna 1 tablet 01/03/19 06:00 01/04/19 05:37 Senokot PO Not Given BID ZARI Sodium Chloride 10 - 20 ml 01/02/19 19:50 01/03/19 22:07 IV 20 ml UD PRN Administration PICC FLUSH Tramadol HCl 50 mg 01/03/19 08:24 01/03/19 14:28 Ultram PO 50 mg Q6H PRN PRN Administration MODERATE PAIN (4-5/10) Tuberculin PPD 5 tu 01/10/19 10:00 Tubersol, Aplisol, Ppd ID 01/10/19 10:01 X1 ONE Problem List (Last Updated 12/27/18 @ 07:53 by Ruben Sandoval DO) Sepsis (Acute) Muscle spasm (Acute) Vital Signs Temp Pulse Resp BP Pulse Ox 98.5 F 94 18 162/83 H 96 01/03/19 15:48 01/03/19 15:48 01/03/19 15:48 01/03/19 15:48 01/03/19 15:48 Oxygen Delivery Method Room Air Weight: 171.6 kg Body Mass Index (BMI) 58.3 Sodium 139 mmol/L (136-145) 01/03/19 05:04 Potassium 4.3 mmol/L (3.5-5.1) 01/03/19 05:04 Chloride 102 mmol/L (98-107) 01/03/19 05:04 Carbon Dioxide 31.0 mmol/L (21.0-32.0) 01/03/19 05:04 Anion Gap 6 (5-15) 01/03/19 05:04 BUN 13 mg/dL (7-18) 01/03/19 05:04 Creatinine 1.11 mg/dL (0.70-1.30) 01/03/19 05:04 Est GFR (MDRD) Af Amer 87 mL/min (>60) 01/03/19 05:04 Est GFR (MDRD) Non-Af 72 mL/min (>60) 01/03/19 05:04 BUN/Creatinine Ratio 11.7 RATIO (10-20) 01/03/19 05:04 Glucose 125 mg/dL (74-106) H 01/03/19 05:04 Assessment/Plan: 1) Pain APAP, baclofen, ibuprofen for mild pain, tramadol for moderate pain, oxycodone for severe pain. Continue to monitor daily pain scores, prn medication use. 2) ID Cefazolin thru 01/27. Continue to monitor s/s infection. 3) HTN Lisinopril. Continue to monitor BP/HR, renal function, electrolytes. 4) DVT PPx Enoxaparin. Continue to monitor for bleeding/clot. Psychotropic Medications: None Unnecessary Medications: None Bowel Regimen: 5) Senna, PEG, prn bisacodyl. Continue to monitor prn medication use, for constipation/diarrhea. Date of Note:: 01/04/19 - Provider Comments Provider responsibility: Provider responsible to enter orders to implement recommendations <Enrique Otero Chi - Last Filed: 01/04/19 16:35> Progress Note - Pharmacy Subjective: [] Objective: Allergies No Known Allergies Allergy (Verified 12/27/18 04:34) Current Medications Generic Name Dose Route Start Last Admin Trade Name Freq PRN Reason Stop Dose Admin Acetaminophen 1,000 mg 01/02/19 22:00 01/04/19 12:42 Tylenol PO 1,000 mg Q8 ZARI Administration Albuterol Sulfate 2 puff 01/02/19 18:49 Ventolin Hfa (Sp) INHALATION Q4H PRN PRN WHEEZING Baclofen 10 mg 01/03/19 09:00 01/04/19 11:36 Lioresal PO 10 mg TIDCM ZARI Administration Bisacodyl 10 mg 01/02/19 20:26 Dulcolax PO DAILY PRN Constipation Calamine/Phenol 1 applic 01/03/19 06:00 01/04/19 05:37 Calmoseptine Ointment TOPICAL 1 applicatio 0600,2200 ZARI Administration Protocol Enoxaparin Sodium 40 mg 01/03/19 06:00 01/04/19 05:30 Lovenox SC 40 mg DAILY@0600 ZARI Administration Heparin Sodium (Beef Lung) 50 units 01/02/19 19:50 IV UD PRN HEPARIN FLUSH Cefazolin Sodium 2 gm/ Sodium 110 mls @ 150 mls/hr 01/02/19 22:00 01/04/19 12:42 Chloride IV 01/27/19 14:00 150 mls/hr Q8 ZARI Administration Sodium Chloride 250 mls @ 15 mls/hr 01/02/19 19:50 01/04/19 12:43 IV 15 mls/hr .[id number] PRN Administration SALINE FLUSH Ibuprofen 600 mg 01/03/19 08:25 01/04/19 11:42 Motrin PO 600 mg 4X/DAY PRN Administration MILD PAIN (1-3/10) Lisinopril 10 mg 01/03/19 06:00 01/04/19 05:30 Zestril PO 10 mg DAILY ZARI Administration Menthol 1 applic 01/03/19 10:15 01/04/19 04:35 Bengay Vanishing Scent TOPICAL 1 applic TID PRN PRN Administration muscle pain Multi-Ingredient Cream 1 applic 01/03/19 22:00 01/03/19 22:11 Eucerin TOPICAL 1 applicatio QHS ZARI Administration Protocol Oxycodone HCl 10 mg 01/03/19 08:25 01/04/19 14:06 Oxyir PO 10 mg Q4H PRN PRN Administration SEVERE PAIN (6-10/10) Polyethylene Glycol 17 gm 01/03/19 18:03 Miralax PO BID PRN Constipation Senna 1 tablet 01/03/19 06:00 01/04/19 05:37 Senokot PO Not Given BID ZARI Sodium Chloride 10 - 20 ml 01/02/19 19:50 01/04/19 12:43 IV 20 ml UD PRN Administration PICC FLUSH Tramadol HCl 50 mg 01/03/19 08:24 01/03/19 14:28 Ultram PO 50 mg Q6H PRN PRN Administration MODERATE PAIN (4-5/10) Tuberculin PPD 5 tu 01/10/19 10:00 Tubersol, Aplisol, Ppd ID 01/10/19 10:01 X1 ONE Problem List (Last Updated 12/27/18 @ 07:53 by Ruben Sandoval DO) Sepsis (Acute) Muscle spasm (Acute) Vital Signs Temp Pulse Resp BP Pulse Ox 98.5 F 94 18 162/83 H 96 01/03/19 15:48 01/03/19 15:48 01/03/19 15:48 01/03/19 15:48 01/03/19 15:48 Oxygen Delivery Method Room Air Weight: 171.6 kg Body Mass Index (BMI) 58.3 Sodium 139 mmol/L (136-145) 01/03/19 05:04 Potassium 4.3 mmol/L (3.5-5.1) 01/03/19 05:04 Chloride 102 mmol/L (98-107) 01/03/19 05:04 Carbon Dioxide 31.0 mmol/L (21.0-32.0) 01/03/19 05:04 Anion Gap 6 (5-15) 01/03/19 05:04 BUN 13 mg/dL (7-18) 01/03/19 05:04 Creatinine 1.11 mg/dL (0.70-1.30) 01/03/19 05:04 Est GFR (MDRD) Af Amer 87 mL/min (>60) 01/03/19 05:04 Est GFR (MDRD) Non-Af 72 mL/min (>60) 01/03/19 05:04 BUN/Creatinine Ratio 11.7 RATIO (10-20) 01/03/19 05:04 Glucose 125 mg/dL (74-106) H 01/03/19 05:04 Assessment/Plan: Psychotropic Medications: Unnecessary Medications: Bowel Regimen: - Provider Comments Provider responsibility: Provider responsible to enter orders to implement recommendations Provider Comments to Recommendations by Pharmacy: Agree
[2019-01-04] MEDS: 0.9% NaCl PICC Flush IV ×2 (12:43→21:44)
[2019-01-04] MEDS: 0.9% NaCl IVPB Med Flush (250 mL) 15 ML IV ×2 (12:43→21:44)
--- NOTE | 2019-01-04 15:23 | CHAPLAIN ---
Type of Pastoral Visit _x__ Initial Visit ___ Follow-up Visit ___ On-call Visit ___ General Patient Visit ___ Spiritual Assessment ___ Family Conference ___ Bereavement ___ Rapid Response ___ Code Blue ___ Other (describe below) Pastoral Care Referral From _x__ Patient ___ Family ___ Nurse ___ Physician ___ Medical Administrative ___ Oceanography Professor ___ Other (describe below) Sacrament/Intervention _x__ Active listening ___ Anointing ___ Jew ___ Bereavement ___ Communion _x__ Irish exploration ___ _x__ Life review ___ Prayer ___ Reconciliation ___ Sacrament of Sick ___ Supportive presence ___ Wedding ___ Other (describe below) Pastoral Comments
[2019-01-04 16:00] VITALS: BP 164/77; PULSE 86; RESP 18; TEMP 37.1; O2SAT 93
[2019-01-04] MEDS: traMADol 50 MG Tablet PO (19:54)
[2019-01-05] MEDS: oxyCODONE 5 MG Tablet 10 MG PO ×4 (02:01→21:55)
[2019-01-05] MEDS: Lisinopril 10 MG Tablet PO (05:04)
[2019-01-05] MEDS: Acetaminophen 500 MG Tablet 1000 MG PO ×3 (05:04→21:56)
[2019-01-05] MEDS: 0.9% NaCl PICC Flush IV ×3 (05:05→21:57)
[2019-01-05] MEDS: Cefazolin 2 GM in 0.9% Normal Saline 100 ML IV ×3 (05:05→21:56)
[2019-01-05] MEDS: Enoxaparin 40 MG/0.4 ML Syringe SC (05:06)
[2019-01-05] MEDS: Menthol/Lanolin/Calamine/Znox 113 GM Tube 1 APPLIC TOPICAL ×2 (05:06→21:57)
[2019-01-05] MEDS: Baclofen 10 MG Tablet PO ×3 (07:54→16:57)
[2019-01-05] MEDS: Ibuprofen 600 MG Tablet PO ×2 (09:14→15:11)
[2019-01-05] MEDS: traMADol 50 MG Tablet PO ×2 (09:15→15:22)
--- NOTE | 2019-01-05 10:08 | PCM.PN.ID ---
Patient Problems: Active and Suspected Problems (Last Updated 12/27/18 @ 07:53 by Ruben Sandoval DO) Sepsis (Acute) Muscle spasm (Acute) Subjective: Chronic back pain is worse from baseline, not improving here. No fever, no n/v. Diarrhea improved. - Physical Exam General: Alert, Cooperative, No apparent distress Lungs: Clear to auscultation, Normal air movement Cardiovascular: Regular rate, Regular Rhythm Abdomen: Soft, Non Tender, Non-Distended Skin: No rashes Vital Signs Temp Pulse Resp BP Pulse Ox 98.8 F 86 18 164/77 H 93 01/04/19 16:00 01/04/19 16:00 01/04/19 16:00 01/04/19 16:00 01/04/19 16:00 Oxygen Delivery Method Room Air Weight: 171.6 kg Body Mass Index (BMI) 58.3 Intake and Output for Last 24 Hours 01/03/19 01/04/19 01/05/19 23:59 23:59 23:59 Intake Total 2101 / 2101 1440 / 1440 520 / 520 Output Total 900 / 900 Balance 2101 / 2101 540 / 540 520 / 520 Medical Necessity - Tobacco Use Smoking Status: Never smoker Tobacco Use: Non-smoker Route of nutrition/ use of supplements: [] Nutritional Intake: [] IV Site: [] Villagran Catheter: [] - Assessment/Plan Antibiotics: [] Assessment/Plan: [] Active and Suspected Problems (Last Updated 12/27/18 @ 07:53 by Ruben Sandoval DO) Sepsis (Acute) Muscle spasm (Acute) sepsis (fever, tachycardia) due to MSSA bacteremia likely skin source. Repeat bcx neg since 12/30. Narrowed abx to cefazolin. No sign of splinter hemorrhages/janeway/osler on hands or feet. Continue on cefazolin, stop date 01/27. Weekly bmp, cbc while on iv abx. back pain - with bacteremia, concern for osteo/discitis/epidural abscess. Unable to fit in mri here, will check CT Lspine with contrast. Will follow
[2019-01-05 15:42] VITALS: BP 176/86; PULSE 89; RESP 20; TEMP 37.1; O2SAT 95
[2019-01-05] MEDS: 0.9% NaCl IVPB Med Flush (250 mL) 15 ML IV (21:57)
[2019-01-06] MEDS: traMADol 50 MG Tablet PO ×3 (00:42→19:51)
[2019-01-06] MEDS: oxyCODONE 5 MG Tablet 10 MG PO ×3 (02:56→15:29)
[2019-01-06] MEDS: Cefazolin 2 GM in 0.9% Normal Saline 100 ML IV ×3 (05:01→21:45)
[2019-01-06] MEDS: 0.9% NaCl PICC Flush IV (05:02)
[2019-01-06] MEDS: Enoxaparin 40 MG/0.4 ML Syringe SC (05:05)
[2019-01-06] MEDS: Acetaminophen 500 MG Tablet 1000 MG PO ×3 (05:06→21:42)
[2019-01-06] MEDS: Lisinopril 10 MG Tablet PO (05:07)
[2019-01-06] MEDS: Menthol/Lanolin/Calamine/Znox 113 GM Tube 1 APPLIC TOPICAL ×2 (05:08→19:53)
[2019-01-06] MEDS: Baclofen 10 MG Tablet PO ×3 (08:02→17:18)
--- NOTE | 2019-01-06 08:29 | PCA ---
helped him with a shower today 01/06
--- NOTE | 2019-01-06 11:56 | MDS.RN ---
Pain interview for gideon 01/09/19 completed.
--- NOTE | 2019-01-06 12:03 | CASEMGMT ---
Social Work: Update sent to [employer] through review link. LCD 01/11 with an udpate due 01/11. Auth #[id number].
--- NOTE | 2019-01-06 13:28 | CASEMGMT ---
BIMS and PHQ9 interviews completed for MDS assessment on this date. MIKAEL Lr
[2019-01-06 16:00] VITALS: BP 186/90; PULSE 89; RESP 20; TEMP 36.9; O2SAT 95
--- NOTE | 2019-01-07 01:03 | NURSING ---
Pt self transferred to br. Pt educated on using call light for staff assistance. Pt agreeable. Will continue to monitor.
[2019-01-07] MEDS: Ibuprofen 600 MG Tablet PO ×2 (01:15→17:04)
[2019-01-07] MEDS: Enoxaparin 40 MG/0.4 ML Syringe SC (05:53)
[2019-01-07] MEDS: Menthol/Lanolin/Calamine/Znox 113 GM Tube 1 APPLIC TOPICAL ×2 (05:53→21:50)
[2019-01-07] MEDS: Lisinopril 10 MG Tablet PO (05:54)
[2019-01-07] MEDS: Acetaminophen 500 MG Tablet 1000 MG PO ×3 (05:54→21:41)
[2019-01-07] MEDS: 0.9% NaCl PICC Flush IV ×4 (06:04→21:40)
[2019-01-07] MEDS: 0.9% NaCl IVPB Med Flush (250 mL) 15 ML IV (06:04)
[2019-01-07] MEDS: Cefazolin 2 GM in 0.9% Normal Saline 100 ML IV ×3 (06:04→21:40)
[2019-01-07] MEDS: Baclofen 10 MG Tablet PO ×3 (08:11→17:01)
[2019-01-07] MEDS: oxyCODONE 5 MG Tablet 10 MG PO ×4 (08:13→21:49)
[2019-01-07] MEDS: traMADol 50 MG Tablet PO ×2 (14:30→20:31)
[2019-01-07 16:00] VITALS: BP 145/73; PULSE 81; RESP 20; TEMP 36.2; O2SAT 97
[2019-01-08] MEDS: oxyCODONE 5 MG Tablet 10 MG PO ×4 (01:59→21:53)
[2019-01-08] MEDS: Cefazolin 2 GM in 0.9% Normal Saline 100 ML IV ×3 (05:07→21:47)
[2019-01-08] MEDS: 0.9% NaCl PICC Flush IV ×2 (05:07→14:45)
[2019-01-08] MEDS: Acetaminophen 500 MG Tablet 1000 MG PO ×3 (05:08→21:54)
[2019-01-08] MEDS: Enoxaparin 40 MG/0.4 ML Syringe SC (05:08)
[2019-01-08] MEDS: Lisinopril 10 MG Tablet PO (05:08)
[2019-01-08] MEDS: Menthol/Lanolin/Calamine/Znox 113 GM Tube 1 APPLIC TOPICAL ×2 (05:12→21:56)
[2019-01-08] MEDS: Baclofen 10 MG Tablet PO ×3 (07:25→17:34)
[2019-01-08 16:00] VITALS: BP 151/90; PULSE 88; RESP 20; TEMP 36.7; O2SAT 98
[2019-01-08] MEDS: 0.9% NaCl IVPB Med Flush (250 mL) 15 ML IV (21:47)
[2019-01-08] MEDS: traMADol 50 MG Tablet PO (23:38)
[2019-01-09] MEDS: oxyCODONE 5 MG Tablet 10 MG PO ×4 (03:21→20:19)
[2019-01-09] MEDS: traMADol 50 MG Tablet PO ×3 (05:54→22:14)
[2019-01-09] MEDS: Enoxaparin 40 MG/0.4 ML Syringe SC (05:55)
[2019-01-09] MEDS: Cefazolin 2 GM in 0.9% Normal Saline 100 ML IV ×3 (05:55→21:32)
[2019-01-09] MEDS: 0.9% NaCl PICC Flush IV ×3 (05:55→21:31)
[2019-01-09] MEDS: Acetaminophen 500 MG Tablet 1000 MG PO ×3 (05:55→21:32)
[2019-01-09] MEDS: Lisinopril 10 MG Tablet PO (05:56)
[2019-01-09] MEDS: Menthol/Lanolin/Calamine/Znox 113 GM Tube 1 APPLIC TOPICAL ×2 (06:05→21:34)
[2019-01-09] MEDS: Ibuprofen 600 MG Tablet PO ×3 (08:06→20:20)
[2019-01-09] MEDS: Baclofen 10 MG Tablet PO ×3 (08:06→16:39)
[2019-01-09 15:42] VITALS: BP 164/102; PULSE 85; RESP 18; TEMP 36.6; O2SAT 96
[2019-01-10] MEDS: Ibuprofen 600 MG Tablet PO ×2 (01:13→14:24)
[2019-01-10] MEDS: oxyCODONE 5 MG Tablet 10 MG PO ×5 (01:13→22:12)
[2019-01-10] MEDS: Lisinopril 10 MG Tablet PO (05:15)
[2019-01-10] MEDS: Acetaminophen 500 MG Tablet 1000 MG PO ×3 (05:15→22:12)
[2019-01-10] MEDS: Enoxaparin 40 MG/0.4 ML Syringe SC (05:15)
[2019-01-10] MEDS: 0.9% NaCl PICC Flush IV ×3 (05:17→22:17)
[2019-01-10] MEDS: Menthol/Lanolin/Calamine/Znox 113 GM Tube 1 APPLIC TOPICAL ×2 (05:17→22:16)
[2019-01-10] MEDS: Cefazolin 2 GM in 0.9% Normal Saline 100 ML IV ×3 (05:17→22:12)
[2019-01-10 06:08] LABS: Absolute Lymphocyte Count 1.37 X10^3/ul (0.83-4.51); Basophil# 0.01 X10^3/uL; Basophil% 0.1 % (0-1); Eosinophil# 0.17 X10^3/uL; Eosinophils% 2.3 % (0-5); Hematocrit 42.1 % (40-54); Hemoglobin 13.9 g/dl (13.0-16.5); Lymphocyte # 1.37 X10^3/ul (4.0); Lymphocyte % 18.4 % (19-41); Mean Corpuscular Hgb 30.3 pg (27.0-32.0); Mean Corpuscular Volume 91.7 fL (80-94); Mean Platelet Vol. 10.3 fl (6.2-12.0); Monocyte# 0.87 X10^3/uL; Monocyte% 11.7 % (0-10); Neutrophil # 5.01 X10^3/uL (2.7-7.7); Neutrophil % 67.1 % (47-70); Platelet Count 314 K/mm3 (150-450); RBC Distribution Width CV 13.4 % (11.6-14.6); Red Blood Count 4.59 M/mm3 (4.6-6.2); White Blood Count 7.5 K/mm3 (4.4-11.0)
[2019-01-10 06:25] LABS: POSITIVE COUNT NO; POSITIVE DIFFERENTIAL NO; POSITIVE MORPHOLOGY NO
[2019-01-10 06:29] LABS: Anion Gap 9 (5-15); BUN 13 mg/dL (7-18); BUN/Creat Ratio 12.3 RATIO (10-20); Calcium,Total 9.3 mg/dL (8.5-10.1); Chloride 99 mmol/L (98-107); Creatinine, Serum 1.06 mg/dL (0.70-1.30); EST Glomerular Filtration Rate 76 mL/min (>60); Est Glom Filt Rate - Afr Amer 92 mL/min (>60); Estimated Creatinine Clearance 73.49 ml/min; Glucose 122 mg/dL (74-106); Potassium 4.5 mmol/L (3.5-5.1); Sodium Level 136 mmol/L (136-145)
[2019-01-10] MEDS: Baclofen 10 MG Tablet PO ×3 (08:17→18:01)
[2019-01-10] MEDS: traMADol 50 MG Tablet PO (10:41)
[2019-01-10] MEDS: Tuberculin,Purif.prot.deriv. 50 TU/ML Vial 5 ML ID (11:59)
[2019-01-10 15:19] VITALS: BP 164/103; PULSE 90; RESP 18; TEMP 36.8; O2SAT 95
[2019-01-10] MEDS: 0.9% NaCl IVPB Med Flush (250 mL) 15 ML IV (22:12)
[2019-01-11] MEDS: traMADol 50 MG Tablet PO (03:12)
[2019-01-11] MEDS: oxyCODONE 5 MG Tablet 10 MG PO ×4 (04:58→22:05)
[2019-01-11] MEDS: 0.9% NaCl PICC Flush IV ×3 (04:58→21:17)
[2019-01-11] MEDS: Cefazolin 2 GM in 0.9% Normal Saline 100 ML IV ×3 (04:59→21:22)
[2019-01-11] MEDS: Menthol/Lanolin/Calamine/Znox 113 GM Tube 1 APPLIC TOPICAL ×2 (05:07→21:27)
[2019-01-11] MEDS: Enoxaparin 40 MG/0.4 ML Syringe SC (05:08)
[2019-01-11] MEDS: Acetaminophen 500 MG Tablet 1000 MG PO ×3 (05:09→22:06)
[2019-01-11] MEDS: Lisinopril 10 MG Tablet PO (05:09)
[2019-01-11] MEDS: Baclofen 10 MG Tablet PO ×3 (08:19→17:11)
[2019-01-11] MEDS: 0.9% NaCl IVPB Med Flush (250 mL) 15 ML IV ×2 (13:11→21:18)
--- NOTE | 2019-01-11 13:31 | NS ---
Resident requested more information regarding outpatient dietitian services and free seminars. Left resident [facility] outpt RD brochure and WhyWeight program information. 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 He now is unable to stand for longer than 10 minutes to cook a meal or hike with his due to the unmanaged pain. Resident expressed that he has a good background knowledge of nutrition and enjoys cooking, and has made some lifestyle changes for the better (12 cans of soda/day to 2-3, etc). It is apparent there is still a slight knowledge deficit and resident would benefit from outpatient nutrition services. See complete assessment dated 01/11/19. Page Luis, manager intern Brittanie Spicer RD/HEMALATHA
--- NOTE | 2019-01-11 14:50 | CASEMGMT ---
Insurance Continued stay approved with next update 01/18. Auth #[id number] MIKAEL Lr
[2019-01-11 16:00] VITALS: BP 149/82; PULSE 91; RESP 18; TEMP 36.5; O2SAT 95
[2019-01-11] MEDS: Ibuprofen 600 MG Tablet PO (17:59)
[2019-01-12] MEDS: oxyCODONE 5 MG Tablet 10 MG PO ×4 (02:11→21:38)
[2019-01-12] MEDS: Ibuprofen 600 MG Tablet PO ×3 (02:16→19:45)
[2019-01-12] MEDS: Enoxaparin 40 MG/0.4 ML Syringe SC (06:23)
[2019-01-12] MEDS: Cefazolin 2 GM in 0.9% Normal Saline 100 ML IV ×3 (06:24→21:42)
[2019-01-12] MEDS: Menthol/Lanolin/Calamine/Znox 113 GM Tube 1 APPLIC TOPICAL ×2 (06:24→21:42)
[2019-01-12] MEDS: Acetaminophen 500 MG Tablet 1000 MG PO ×3 (06:24→21:42)
[2019-01-12] MEDS: Lisinopril 10 MG Tablet PO (06:24)
--- NOTE | 2019-01-12 08:33 | MDS.RN ---
Information for the mds was obtained from review of the clinical record, interview of resident, staff, and direct observation of resident's care.
[2019-01-12] MEDS: Baclofen 10 MG Tablet PO ×3 (08:57→17:22)
[2019-01-12] MEDS: 0.9% NaCl PICC Flush IV ×2 (14:22→21:42)
--- NOTE | 2019-01-12 15:34 | CHAPLAIN ---
Type of Pastoral Visit ___ Initial Visit _x__ Follow-up Visit ___ On-call Visit ___ General Patient Visit ___ Spiritual Assessment ___ Family Conference ___ Bereavement ___ Rapid Response ___ Code Blue ___ Other (describe below) Pastoral Care Referral From _x__ Patient ___ Family ___ Nurse ___ Physician ___ Field Hauler ___ Nutrition Services Aide ___ Other (describe below) Sacrament/Intervention _x__ Active listening ___ Anointing ___ Quaker _x__ Bereavement ___ Communion _x__ Irish exploration ___ _x__ Life review _x__ Prayer ___ Reconciliation ___ Sacrament of Sick _x__ Supportive presence ___ Wedding ___ Other (describe below) Pastoral Comments patient had just learned of today of his brother; supportive presence and spiritual care
[2019-01-12 16:00] VITALS: BP 125/100; PULSE 90; RESP 20; TEMP 36.6; O2SAT 98
[2019-01-12] MEDS: 0.9% NaCl IVPB Med Flush (250 mL) 15 ML IV (21:41)
[2019-01-13] MEDS: Ibuprofen 600 MG Tablet PO ×2 (03:33→08:35)
[2019-01-13] MEDS: oxyCODONE 5 MG Tablet 10 MG PO ×3 (05:22→21:56)
[2019-01-13] MEDS: Acetaminophen 500 MG Tablet 1000 MG PO ×3 (05:22→21:56)
[2019-01-13] MEDS: 0.9% NaCl PICC Flush IV ×3 (05:22→22:01)
[2019-01-13] MEDS: Lisinopril 10 MG Tablet PO (05:22)
[2019-01-13] MEDS: Menthol/Lanolin/Calamine/Znox 113 GM Tube 1 APPLIC TOPICAL ×2 (05:23→21:56)
[2019-01-13] MEDS: Cefazolin 2 GM in 0.9% Normal Saline 100 ML IV ×3 (05:23→21:58)
[2019-01-13] MEDS: Enoxaparin 40 MG/0.4 ML Syringe SC (05:23)
[2019-01-13] MEDS: Baclofen 10 MG Tablet PO ×3 (08:33→18:00)
--- NOTE | 2019-01-13 15:46 | NURSING ---
New dressing applied to PICC site. Insertion site with small amount of redness. Order to swab site for culture.
[2019-01-13 16:00] VITALS: BP 154/76; PULSE 92; RESP 20; TEMP 36.6; O2SAT 95
--- NOTE | 2019-01-13 16:25 | CHAPLAIN ---
Type of Pastoral Visit ___ Initial Visit _x__ Follow-up Visit ___ On-call Visit ___ General Patient Visit ___ Spiritual Assessment ___ Family Conference ___ Bereavement ___ Rapid Response ___ Code Blue ___ Other (describe below) Pastoral Care Referral From _x__ Patient ___ Family ___ Nurse ___ Physician ___ Subsystems Engineer ___ Utility Worker [employer] ___ Other (describe below) Sacrament/Intervention _x__ Active listening ___ Anointing ___ Hoahaoism _x__ Bereavement ___ Communion _x__ Irish exploration ___ ___ Life review ___ Prayer ___ Reconciliation ___ Sacrament of Sick ___ Supportive presence ___ Wedding ___ Other (describe below) Pastoral Comments
[2019-01-13 20:37] VITALS: PULSE 99; O2SAT 96
[2019-01-14] MEDS: Menthol/Lanolin/Calamine/Znox 113 GM Tube 1 APPLIC TOPICAL ×2 (05:24→21:27)
[2019-01-14] MEDS: 0.9% NaCl PICC Flush IV ×3 (05:29→21:33)
[2019-01-14] MEDS: 0.9% NaCl IVPB Med Flush (250 mL) 15 ML IV (05:29)
[2019-01-14] MEDS: Cefazolin 2 GM in 0.9% Normal Saline 100 ML IV ×3 (05:31→21:33)
[2019-01-14] MEDS: Enoxaparin 40 MG/0.4 ML Syringe SC (05:35)
[2019-01-14] MEDS: Lisinopril 10 MG Tablet PO (05:35)
[2019-01-14] MEDS: Ibuprofen 600 MG Tablet PO ×2 (05:38→11:36)
[2019-01-14] MEDS: Baclofen 10 MG Tablet PO ×3 (08:15→17:36)
[2019-01-14] MEDS: Acetaminophen 500 MG Tablet 1000 MG PO ×2 (08:27→21:27)
[2019-01-14] MEDS: oxyCODONE 5 MG Tablet 10 MG PO ×2 (11:42→21:31)
[2019-01-14 15:09] VITALS: BP 139/77; PULSE 82; RESP 20; TEMP 36.5; O2SAT 96
[2019-01-14 15:16] LABS: Erythrocyte Sedimentation Rate 56 mm/hr (0-20)
[2019-01-14 15:19] LABS: Absolute Lymphocyte Count 1.12 X10^3/ul (0.83-4.51); Absolute Neutrophil Count 5.4 X10^3/uL (2.0-7.7); Basophil# 0.02 X10^3/uL; Basophil% 0.3 % (0-1); Eosinophil# 0.14 X10^3/uL; Eosinophils% 1.8 % (0-5); Hematocrit 37.6 % (40-54); Hemoglobin 12.2 g/dl (13.0-16.5); Lymphocyte # 1.12 X10^3/ul (4.0); Lymphocyte % 14.6 % (19-41); Mean Corp Hgb Conc 32.4 g/gl (32-36); Mean Corpuscular Volume 92.6 fL (80-94); Mean Platelet Vol. 10.4 fl (6.2-12.0); Monocyte# 0.93 X10^3/uL; Monocyte% 12.1 % (0-10); Neutrophil # 5.44 X10^3/uL (2.7-7.7); Neutrophil % 71.1 % (47-70); POSITIVE COUNT NO; POSITIVE DIFFERENTIAL NO; POSITIVE MORPHOLOGY NO; Platelet Count 254 K/mm3 (150-450); RBC Distribution Width CV 13.4 % (11.6-14.6); Red Blood Count 4.06 M/mm3 (4.6-6.2); White Blood Count 7.7 K/mm3 (4.4-11.0)
--- NOTE | 2019-01-14 15:30 | RAD_ITS ---
STUDY: X-RAY - RIGHT FOOT CLINICAL: Male, 58 years old. Redness and warmth. Pain. TECHNIQUE: 3 view(s) of the foot. COMPARISON: None. FINDINGS: There are small superior and inferior calcaneal spurs. There is an os tibiale externum, a normal variant. Normal visualized subtalar, talonavicular, calcaneocuboid, tarsal and tarsometatarsal articulations. Normal metatarsi. Normal metatarsophalangeal joint of the great toe. Normal tibial and fibular sesamoid bones. Normal interphalangeal joint of the great toe. Normal phalanges of the great toe. Normal second through fifth metatarsophalangeal joints. Normal interphalangeal joints and phalanges of the lesser toes. The soft tissue structures are unremarkable. RAD/Foot min 3 Views IMPRESSION: No acute finding. Electronically Signed: Pa Stanton MD at 16:02 EDT , Service support ,
[2019-01-14 15:45] LABS: Anion Gap 4 (5-15); BUN 15 mg/dL (7-18); BUN/Creat Ratio 14.2 RATIO (10-20); Calcium,Total 8.9 mg/dL (8.5-10.1); Chloride 101 mmol/L (98-107); Creatinine, Serum 1.06 mg/dL (0.70-1.30); EST Glomerular Filtration Rate 76 mL/min (>60); Est Glom Filt Rate - Afr Amer 92 mL/min (>60); Estimated Creatinine Clearance 73.49 ml/min; Glucose 104 mg/dL (74-106); Potassium 4.4 mmol/L (3.5-5.1); Sodium Level 136 mmol/L (136-145); Uric Acid 4.3 mg/dL (3.5-7.2)
[2019-01-15] MEDS: Acetaminophen 500 MG Tablet 1000 MG PO ×2 (05:22→21:33)
[2019-01-15] MEDS: Lisinopril 10 MG Tablet PO (05:22)
[2019-01-15] MEDS: Enoxaparin 40 MG/0.4 ML Syringe SC (05:22)
[2019-01-15] MEDS: Menthol/Lanolin/Calamine/Znox 113 GM Tube 1 APPLIC TOPICAL ×2 (05:22→21:52)
[2019-01-15] MEDS: 0.9% NaCl PICC Flush IV ×2 (05:28→21:33)
[2019-01-15] MEDS: Cefazolin 2 GM in 0.9% Normal Saline 100 ML IV ×3 (05:30→21:33)
[2019-01-15] MEDS: Ibuprofen 600 MG Tablet PO ×2 (06:39→16:40)
[2019-01-15] MEDS: Baclofen 10 MG Tablet PO ×3 (07:38→16:40)
[2019-01-15 13:49] VITALS: BP 178/85; PULSE 95; RESP 18; TEMP 36.6; O2SAT 98
[2019-01-15] MEDS: 0.9% NaCl IVPB Med Flush (250 mL) 15 ML IV (21:34)
[2019-01-15] MEDS: oxyCODONE 5 MG Tablet 10 MG PO (21:44)
[2019-01-16] MEDS: Enoxaparin 40 MG/0.4 ML Syringe SC (05:43)
[2019-01-16] MEDS: Lisinopril 10 MG Tablet PO (05:43)
[2019-01-16] MEDS: Cefazolin 2 GM in 0.9% Normal Saline 100 ML IV ×3 (05:43→21:00)
[2019-01-16] MEDS: Acetaminophen 500 MG Tablet 1000 MG PO ×3 (05:43→21:00)
[2019-01-16] MEDS: Menthol/Lanolin/Calamine/Znox 113 GM Tube 1 APPLIC TOPICAL ×2 (05:50→20:59)
[2019-01-16] MEDS: 0.9% NaCl PICC Flush IV ×3 (05:52→20:51)
[2019-01-16] MEDS: Baclofen 10 MG Tablet PO ×3 (07:21→16:25)
[2019-01-16] MEDS: Ibuprofen 600 MG Tablet PO ×2 (07:23→13:35)
[2019-01-16 15:26] VITALS: BP 152/99; PULSE 86; RESP 16; TEMP 36.5; O2SAT 98
--- NOTE | 2019-01-16 17:07 | NURSING ---
DR. MARROQUIN AWARE OF RIGHT FOOT REDNESS, SPREADING. N.O. MRI, AWAITING PRE-CERT.
[2019-01-16] MEDS: oxyCODONE 5 MG Tablet 10 MG PO (20:50)
[2019-01-16] MEDS: 0.9% NaCl IVPB Med Flush (250 mL) 15 ML IV (20:51)
[2019-01-17] MEDS: Ibuprofen 600 MG Tablet PO ×3 (01:40→16:10)
[2019-01-17] MEDS: 0.9% NaCl PICC Flush IV ×3 (06:14→13:22)
[2019-01-17] MEDS: Menthol/Lanolin/Calamine/Znox 113 GM Tube 1 APPLIC TOPICAL ×2 (06:14→22:19)
[2019-01-17] MEDS: Enoxaparin 40 MG/0.4 ML Syringe SC (06:15)
[2019-01-17] MEDS: Acetaminophen 500 MG Tablet 1000 MG PO ×3 (06:15→22:07)
[2019-01-17] MEDS: Lisinopril 10 MG Tablet PO (06:15)
[2019-01-17] MEDS: Cefazolin 2 GM in 0.9% Normal Saline 100 ML IV ×3 (06:16→22:09)
[2019-01-17 06:35] LABS: Absolute Lymphocyte Count 1.09 X10^3/ul (0.83-4.51); Absolute Neutrophil Count 3.7 X10^3/uL (2.0-7.7); Basophil# 0.01 X10^3/uL; Basophil% 0.2 % (0-1); Eosinophil# 0.23 X10^3/uL; Hematocrit 35.5 % (40-54); Hemoglobin 11.6 g/dl (13.0-16.5); Lymphocyte # 1.09 X10^3/ul (4.0); Lymphocyte % 18.8 % (19-41); Mean Corp Hgb Conc 32.7 g/gl (32-36); Mean Corpuscular Hgb 30.4 pg (27.0-32.0); Mean Corpuscular Volume 92.9 fL (80-94); Mean Platelet Vol. 9.5 fl (6.2-12.0); Monocyte# 0.77 X10^3/uL; Monocyte% 13.3 % (0-10); Neutrophil % 63.5 % (47-70); POSITIVE COUNT NO; POSITIVE DIFFERENTIAL NO; POSITIVE MORPHOLOGY NO; Platelet Count 239 K/mm3 (150-450); RBC Distribution Width CV 13.6 % (11.6-14.6); RBC Distribution Width SD 46.3 fl (35.1-43.9); Red Blood Count 3.82 M/mm3 (4.6-6.2); White Blood Count 5.8 K/mm3 (4.4-11.0)
--- NOTE | 2019-01-17 06:58 | NURSING ---
Pt concerned with increased edema to bilateral lower extremities, requesting to speak with Dr Otero. Will update Dr Otero.
[2019-01-17 07:22] LABS: Anion Gap 8 (5-15); BUN 11 mg/dL (7-18); BUN/Creat Ratio 11.6 RATIO (10-20); Calcium,Total 8.5 mg/dL (8.5-10.1); Chloride 101 mmol/L (98-107); Creatinine, Serum 0.95 mg/dL (0.70-1.30); EST Glomerular Filtration Rate 86 mL/min (>60); Est Glom Filt Rate - Afr Amer 105 mL/min (>60); Glucose 120 mg/dL (74-106); Potassium 4.1 mmol/L (3.5-5.1); Sodium Level 138 mmol/L (136-145)
[2019-01-17] MEDS: Baclofen 10 MG Tablet PO ×3 (07:29→16:47)
[2019-01-17] MEDS: Furosemide 40 MG Tablet PO (09:09)
[2019-01-17 16:00] VITALS: BP 152/85; PULSE 90; RESP 18; TEMP 36.6; O2SAT 96
[2019-01-17] MEDS: oxyCODONE 5 MG Tablet 10 MG PO ×2 (16:11→22:07)
--- NOTE | 2019-01-17 16:36 | CASEMGMT ---
Social Work Pt requesting to d/c on 01/19 home with . SW spoke with Dr. Otero who is not recommending d/c at this time due to medical reasons. SW spoke with pt about this and pt is agreeable to continued stay while issues are addressed. Will continue to follow for d/c planning. SW spoke with pt about recent of brother. Pt easily verbalizing feelings associated with loss and discussing some life review. SW offered supportive listening and encouraged verbalization of feelings. MIKAEL Lr
[2019-01-17] MEDS: 0.9% NaCl IVPB Med Flush (250 mL) 15 ML IV (22:09)
[2019-01-18] MEDS: oxyCODONE 5 MG Tablet 10 MG PO ×4 (02:34→21:07)
[2019-01-18] MEDS: Ibuprofen 600 MG Tablet PO ×3 (02:36→16:01)
[2019-01-18] MEDS: Cefazolin 2 GM in 0.9% Normal Saline 100 ML IV ×3 (05:40→21:08)
[2019-01-18] MEDS: Furosemide 40 MG Tablet PO (05:40)
[2019-01-18] MEDS: Enoxaparin 40 MG/0.4 ML Syringe SC (05:40)
[2019-01-18] MEDS: Menthol/Lanolin/Calamine/Znox 113 GM Tube 1 APPLIC TOPICAL ×2 (05:46→21:12)
[2019-01-18] MEDS: Acetaminophen 500 MG Tablet 1000 MG PO ×3 (06:42→21:08)
[2019-01-18] MEDS: Lisinopril 10 MG Tablet PO (06:42)
[2019-01-18] MEDS: Baclofen 10 MG Tablet PO ×3 (06:42→16:56)
--- NOTE | 2019-01-18 09:13 | NURSING ---
Patient approved for MRI of right foot, auth code [id number].
--- NOTE | 2019-01-18 12:43 | CASEMGMT ---
Insurance: continued [place] [facility] [place]. Auth # [id number].
[2019-01-18] MEDS: 0.9% NaCl PICC Flush IV ×2 (13:33→21:07)
--- NOTE | 2019-01-18 15:32 | CHAPLAIN ---
Type of Pastoral Visit ___ Initial Visit _x__ Follow-up Visit ___ On-call Visit ___ General Patient Visit ___ Spiritual Assessment ___ Family Conference ___ Bereavement ___ Rapid Response ___ Code Blue ___ Other (describe below) Pastoral Care Referral From _x__ Patient ___ Family ___ Nurse ___ Physician ___ Valve Seater Operator ___ Side Stapler ___ Other (describe below) Sacrament/Intervention _x__ Active listening ___ Anointing ___ Mosque ___ Bereavement ___ Communion _x__ Irish exploration ___ ___ Life review ___ Prayer ___ Reconciliation ___ Sacrament of Sick ___ Supportive presence ___ Wedding ___ Other (describe below) Pastoral Comments patient saw this soil expert in hallway and requested visit; pt had several questions of spiritual nature to discuss
[2019-01-18 15:56] VITALS: BP 123/81; PULSE 95; RESP 20; TEMP 36.2; O2SAT 95
[2019-01-18] MEDS: 0.9% NaCl IVPB Med Flush (250 mL) 15 ML IV (21:07)
[2019-01-19] MEDS: Ibuprofen 600 MG Tablet PO ×2 (02:55→08:04)
[2019-01-19] MEDS: 0.9% NaCl PICC Flush IV ×4 (04:52→21:20)
[2019-01-19] MEDS: Lisinopril 10 MG Tablet PO (05:03)
[2019-01-19] MEDS: Acetaminophen 500 MG Tablet 1000 MG PO ×3 (05:03→21:24)
[2019-01-19] MEDS: Cefazolin 2 GM in 0.9% Normal Saline 100 ML IV ×3 (05:03→21:22)
[2019-01-19] MEDS: Menthol/Lanolin/Calamine/Znox 113 GM Tube 1 APPLIC TOPICAL ×2 (05:03→21:22)
[2019-01-19] MEDS: Enoxaparin 40 MG/0.4 ML Syringe SC (05:03)
[2019-01-19] MEDS: Furosemide 40 MG Tablet PO (05:03)
[2019-01-19 05:26] LABS: Anion Gap 8 (5-15); BUN 13 mg/dL (7-18); BUN/Creat Ratio 11.2 RATIO (10-20); Calcium,Total 8.7 mg/dL (8.5-10.1); Chloride 97 mmol/L (98-107); Creatinine, Serum 1.16 mg/dL (0.70-1.30); EST Glomerular Filtration Rate 69 mL/min (>60); Est Glom Filt Rate - Afr Amer 83 mL/min (>60); Estimated Creatinine Clearance 67.16 ml/min; Glucose 236 mg/dL (74-106); Potassium 4.3 mmol/L (3.5-5.1); Sodium Level 135 mmol/L (136-145)
[2019-01-19] MEDS: Baclofen 10 MG Tablet PO ×3 (08:02→17:32)
[2019-01-19] MEDS: 0.9% NaCl IVPB Med Flush (250 mL) 15 ML IV ×2 (14:05→21:20)
[2019-01-19 15:21] VITALS: BP 137/78; PULSE 94; RESP 20; TEMP 36.6; O2SAT 95
[2019-01-19] MEDS: oxyCODONE 5 MG Tablet 10 MG PO ×2 (15:54→21:24)
--- NOTE | 2019-01-19 18:33 | NURSING ---
Dr. taylor notified of MRI results, he said he will see pt tomorrow.
[2019-01-20] MEDS: Ibuprofen 600 MG Tablet PO ×2 (02:14→08:28)
[2019-01-20] MEDS: 0.9% NaCl PICC Flush IV ×2 (04:52→14:12)
[2019-01-20] MEDS: Enoxaparin 40 MG/0.4 ML Syringe SC (05:00)
[2019-01-20] MEDS: Cefazolin 2 GM in 0.9% Normal Saline 100 ML IV ×3 (05:00→21:36)
[2019-01-20] MEDS: Acetaminophen 500 MG Tablet 1000 MG PO ×3 (05:01→21:35)
[2019-01-20] MEDS: Lisinopril 10 MG Tablet PO (05:01)
[2019-01-20] MEDS: Furosemide 40 MG Tablet PO (05:01)
[2019-01-20] MEDS: Baclofen 10 MG Tablet PO ×3 (08:24→16:53)
--- NOTE | 2019-01-20 13:43 | PCM.PN.ID ---
Patient Problems: Active and Suspected Problems (Last Updated 12/27/18 @ 07:53 by Ruben Sandoval DO) Sepsis (Acute) Muscle spasm (Acute) Subjective: Feeling ok, had several days of R foot burning pain, redness, swelling. Now improving. MRI done, no fever. - Physical Exam General: Alert, Cooperative, No apparent distress Lungs: Clear to auscultation, Normal air movement Cardiovascular: Regular rate, Regular Rhythm Abdomen: Soft, Non Tender, Non-Distended Skin: Rash Present - mild redness of R foot Vital Signs Temp Pulse Resp BP Pulse Ox 97.8 F 94 20 H 137/78 H 95 01/19/19 15:21 01/19/19 15:21 01/19/19 15:21 01/19/19 15:21 01/19/19 15:21 Oxygen Delivery Method Room Air Weight: 169.672 kg Body Mass Index (BMI) 58.3 Intake and Output for Last 24 Hours 01/18/19 01/19/19 01/20/19 23:59 23:59 23:59 Intake Total 1687 / 1687 1942 / 1942 885 / 885 Balance 1687 / 1687 1941 / 1941 885 / 885 Medical Necessity - Tobacco Use Smoking Status: Never smoker Tobacco Use: Non-smoker Route of nutrition/ use of supplements: [] Nutritional Intake: [] IV Site: [] Villagran Catheter: [] - Assessment/Plan Antibiotics: [] Assessment/Plan: [] Active and Suspected Problems (Last Updated 12/27/18 @ 07:53 by Ruben Sandoval DO) Sepsis (Acute) Muscle spasm (Acute) sepsis (fever, tachycardia) due to MSSA bacteremia likely skin source. Repeat bcx neg since 12/30. Narrowed abx to cefazolin. No sign of splinter hemorrhages/janeway/osler on hands or feet. Continue on cefazolin, stop date 01/27. Weekly bmp, cbc while on iv abx. back pain - CT w/ contrast showed no osteo/discitis/epidural abscess. Unable to fit in mri here. R foot inflammation - MRI done, no abscess seen, pt reports it is improving. Will follow
[2019-01-20 15:19] VITALS: BP 163/72; PULSE 90; RESP 18; TEMP 36.9; O2SAT 99
[2019-01-20] MEDS: oxyCODONE 5 MG Tablet 10 MG PO ×2 (15:48→21:34)
[2019-01-20] MEDS: 0.9% NaCl IVPB Med Flush (250 mL) 15 ML IV (21:35)
[2019-01-21] MEDS: oxyCODONE 5 MG Tablet 10 MG PO ×3 (02:43→21:35)
[2019-01-21] MEDS: Ibuprofen 600 MG Tablet PO ×2 (02:45→09:52)
[2019-01-21] MEDS: Enoxaparin 40 MG/0.4 ML Syringe SC (05:38)
[2019-01-21] MEDS: Cefazolin 2 GM in 0.9% Normal Saline 100 ML IV ×3 (05:39→21:37)
[2019-01-21] MEDS: Lisinopril 10 MG Tablet PO (05:39)
[2019-01-21] MEDS: Acetaminophen 500 MG Tablet 1000 MG PO ×3 (05:40→21:34)
[2019-01-21] MEDS: Furosemide 40 MG Tablet PO (05:41)
[2019-01-21] MEDS: Baclofen 10 MG Tablet PO ×3 (08:40→17:42)
[2019-01-21 15:27] VITALS: BP 150/87; PULSE 81; RESP 20; TEMP 36.6; O2SAT 95
--- NOTE | 2019-01-21 21:14 | NURSING ---
This RN refilled ice water, offered fresh lines for HS care and patient refused at this time, no other needs voiced.
[2019-01-21] MEDS: 0.9% NaCl PICC Flush IV (21:37)
[2019-01-22] MEDS: Ibuprofen 600 MG Tablet PO ×2 (00:41→08:50)
[2019-01-22] MEDS: oxyCODONE 5 MG Tablet 10 MG PO ×3 (04:57→20:29)
[2019-01-22] MEDS: Furosemide 40 MG Tablet PO (04:58)
[2019-01-22] MEDS: Enoxaparin 40 MG/0.4 ML Syringe SC (04:58)
[2019-01-22] MEDS: Acetaminophen 500 MG Tablet 1000 MG PO ×3 (04:58→20:29)
[2019-01-22] MEDS: Lisinopril 10 MG Tablet PO (04:59)
[2019-01-22] MEDS: 0.9% NaCl PICC Flush IV (05:03)
[2019-01-22] MEDS: Cefazolin 2 GM in 0.9% Normal Saline 100 ML IV ×3 (05:03→20:30)
[2019-01-22] MEDS: Baclofen 10 MG Tablet PO ×3 (08:50→16:49)
[2019-01-22 15:19] VITALS: BP 164/95; PULSE 91; RESP 18; TEMP 36.7; O2SAT 97
[2019-01-23] MEDS: oxyCODONE 5 MG Tablet 10 MG PO ×4 (01:08→22:11)
[2019-01-23] MEDS: Ibuprofen 600 MG Tablet PO ×3 (03:27→14:34)
[2019-01-23] MEDS: Acetaminophen 500 MG Tablet 1000 MG PO ×3 (05:12→22:11)
[2019-01-23] MEDS: Lisinopril 10 MG Tablet PO (05:12)
[2019-01-23] MEDS: Furosemide 40 MG Tablet PO (05:12)
[2019-01-23] MEDS: Enoxaparin 40 MG/0.4 ML Syringe SC (05:13)
[2019-01-23] MEDS: 0.9% NaCl PICC Flush IV ×3 (05:15→22:08)
[2019-01-23] MEDS: Cefazolin 2 GM in 0.9% Normal Saline 100 ML IV ×3 (05:15→22:06)
[2019-01-23] MEDS: Baclofen 10 MG Tablet PO ×3 (08:10→17:01)
[2019-01-23 16:00] VITALS: BP 152/77; PULSE 87; RESP 18; TEMP 36.9; O2SAT 95
[2019-01-23] MEDS: 0.9% NaCl IVPB Med Flush (250 mL) 15 ML IV (22:10)
[2019-01-24] MEDS: Ibuprofen 600 MG Tablet PO ×2 (03:19→13:02)
[2019-01-24] MEDS: 0.9% NaCl PICC Flush IV ×5 (04:37→20:53)
[2019-01-24] MEDS: Lisinopril 10 MG Tablet PO (04:59)
[2019-01-24] MEDS: Enoxaparin 40 MG/0.4 ML Syringe SC (04:59)
[2019-01-24] MEDS: Cefazolin 2 GM in 0.9% Normal Saline 100 ML IV ×3 (04:59→20:53)
[2019-01-24] MEDS: Acetaminophen 500 MG Tablet 1000 MG PO ×3 (04:59→20:51)
[2019-01-24 05:15] LABS: Absolute Lymphocyte Count 0.94 X10^3/ul (0.83-4.51); Absolute Neutrophil Count 2.7 X10^3/uL (2.0-7.7); Basophil# 0.01 X10^3/uL; Basophil% 0.2 % (0-1); Eosinophil# 0.23 X10^3/uL; Hematocrit 35.5 % (40-54); Hemoglobin 11.7 g/dl (13.0-16.5); Lymphocyte # 0.94 X10^3/ul (4.0); Lymphocyte % 20.4 % (19-41); Mean Corpuscular Hgb 30.5 pg (27.0-32.0); Mean Corpuscular Volume 92.7 fL (80-94); Mean Platelet Vol. 9.6 fl (6.2-12.0); Monocyte# 0.72 X10^3/uL; Monocyte% 15.6 % (0-10); Neutrophil % 58.6 % (47-70); Platelet Count 257 K/mm3 (150-450); RBC Distribution Width CV 13.4 % (11.6-14.6); RBC Distribution Width SD 44.2 fl (35.1-43.9); Red Blood Count 3.83 M/mm3 (4.6-6.2); White Blood Count 4.6 K/mm3 (4.4-11.0)
[2019-01-24 05:16] LABS: POSITIVE COUNT NO; POSITIVE DIFFERENTIAL NO; POSITIVE MORPHOLOGY NO
[2019-01-24 06:41] LABS: Anion Gap 6 (5-15); BUN 14 mg/dL (7-18); BUN/Creat Ratio 13.2 RATIO (10-20); Calcium,Total 8.7 mg/dL (8.5-10.1); Chloride 101 mmol/L (98-107); Creatinine, Serum 1.06 mg/dL (0.70-1.30); EST Glomerular Filtration Rate 76 mL/min (>60); Est Glom Filt Rate - Afr Amer 92 mL/min (>60); Estimated Creatinine Clearance 73.49 ml/min; Glucose 152 mg/dL (74-106); Potassium 4.2 mmol/L (3.5-5.1); Sodium Level 139 mmol/L (136-145)
[2019-01-24] MEDS: Baclofen 10 MG Tablet PO ×3 (08:26→16:53)
[2019-01-24] MEDS: oxyCODONE 5 MG Tablet 10 MG PO ×2 (09:20→20:51)
--- NOTE | 2019-01-24 11:07 | CASEMGMT ---
Insurance: continued stay review sent through [employer] this day. Auth # [id number].
--- NOTE | 2019-01-24 14:37 | CASEMGMT ---
Social Work Insurance approved patient until 01/29. Patient is choosing to discharge 01/28 after IVS are completed 01/27. Therapy nor nursing is not recommending any services in the community. Patient will discharge home with no needs 01/28. Plan: Patient will discharge home with no needs 01/28. TREE FlorentinoW
--- NOTE | 2019-01-24 14:40 | CASEMGMT ---
Insurance: Patient approved for additional time. Last covered day 01/28/19. Next review due 01/27/19. Auth #[id number].
[2019-01-24 16:00] VITALS: BP 177/83; PULSE 87; RESP 18; TEMP 37; O2SAT 96
[2019-01-24] MEDS: 0.9% NaCl IVPB Med Flush (250 mL) 15 ML IV (20:52)
--- NOTE | 2019-01-24 21:21 | DCINST_ITS ---
- Discharge Diagnoses Current Active Problems: Current Active and Chronic Problems (Last Updated 12/27/18 @ 07:53 by Ruben Sandoval DO) Sepsis (Acute) Muscle spasm (Acute) You will use the following diet at home:: No restrictions, Regular Your food should be the consistency of: Regular Your liquids should be the consistency of: Regular/Thin Discharge Activity: Return to Normal Activity, May Shower, Use Walker May resume sexual activity in: No Restrictions Weight Bearing Status: Weight bearing as tolerated Call your doctor if you observe: Fever of 101 or Higher, Inability to urinate, Inability to have a bowel movement, Shortness of breath, Chest pain, Uncontrolled pain Allergies/Adverse Reactions: Allergies No Known Allergies Allergy (Verified 12/27/18 04:34) Medications to take at Discharge Albuterol Inhaler [Ventolin Hfa] 1 - 2 puff INHALATION Q4H PRN PRN #1 inhaler 08/08/14 Acetaminophen [Tylenol] 1,000 mg PO Q8H 12/28/18 Baclofen [Lioresal] 10 mg PO TIDCM #90 tablet 01/24/19 Ibuprofen 600 mg PO 4X/DAY PRN #30 tablet 01/24/19 Lisinopril [Zestril] 10 mg PO DAILY #30 tablet 01/24/19 Menthol [Bengay Vanishing Scent] 1 applic TOPICAL TID PRN PRN tube 01/24/19 Menthol/Lanolin/Calamine/Znox [Calmoseptine Ointment] 1 applic TOPICAL BID PRN tube 01/24/19 Mineral Oil/Petrolatum,White [Eucerin] 1 applic TOPICAL QHS jar 01/24/19 Oxycodone [Oxyir] 10 mg PO Q4H PRN PRN 7 Days #30 tab 01/24/19 Polyethylene Glycol 3350 [Miralax] 17 gm PO BID PRN #60 packet 01/24/19 Senna [Senokot] 1 tablet PO BID PRN #60 tablet 01/24/19 The following prescriptions were given: Oxycodone [Oxyir] 10 mg PO Q4H PRN PRN 7 Days #30 tab PRN Reason: Severe Pain (6-05/25) Lisinopril [Zestril] 10 mg PO DAILY #30 tablet Polyethylene Glycol 3350 [Miralax] 17 gm PO BID PRN #60 packet PRN Reason: Constipation Senna [Senokot] 1 tablet PO BID PRN #60 tablet PRN Reason: Constipation Baclofen [Lioresal] 10 mg PO TIDCM #90 tablet Ibuprofen 600 mg PO 4X/DAY PRN #30 tablet PRN Reason: Pain Primary Care Physician: Elias Rachel MD [Primary Care Provider] - Please follow up with your Primary Care Physician in: 1 week. Test Results: Test results from this visit will be discussed in further detail at your follow- up appointment, if applicable. Proposed Discharge Date: 01/28/19
--- NOTE | 2019-01-24 21:22 | DS.PCM_ITS ---
Discharge Date and Diagnosis - Problem List Patient Problems: Active and Suspected Problems (Last Updated 12/27/18 @ 07:53 by Rbuen Sandoval DO) Sepsis (Acute) Muscle spasm (Acute) Date of Admission: 01/02/19 Date of Discharge: 01/28/19 - Primary Discharge Diagnosis Active and Suspected Problems (Last Updated 12/27/18 @ 07:53 by Ruben Sandoval DO) Sepsis (Acute) Muscle spasm (Acute) - Secondary Discharge Diagnosis Chronic Problems (Last Updated 12/27/18 @ 07:53 by Ruben Sandoval DO) Hypertension (Chronic) Hospital Course and Treatment Imaging Results: 01/12/19 18:13 Diet: Regular Diet Food consistency:: Regular Liquid Consistency:: Regular/Thin Is pt able to select menu?: Yes Clinical Impression(s) from Imaging Studies Foot X-Ray 01/14/19 15:30 IMPRESSION: No acute finding. Electronically Signed: Pa Stanton MD at 16:02 EDT , Service support , Labs (Last 48 Hours) 01/24/19 01/24/19 04:52 06:08 WBC 4.6 RBC 3.83 L Hgb 11.7 L Hct 35.5 L MCV 92.7 MCH 30.5 MCHC 33.0 RDW 13.4 RDW Differential 44.2 H Plt Count 257 MPV 9.6 Immature Gran % (Auto) 0.200 Neut % (Auto) 58.6 Lymph % (Auto) 20.4 Morrison % (Auto) 15.6 H Eos % (Auto) 5.0 Baso % (Auto) 0.2 Absolute Neuts (auto) 2.7 Absolute Lymphs (auto) 0.94 Total Counted Not Reportable Sodium 139 Potassium 4.2 Chloride 101 Carbon Dioxide 32.0 Anion Gap 6 BUN 14 Creatinine 1.06 Estim Creat Clear Calc 73.49 Est GFR (MDRD) Af Amer 92 Est GFR (MDRD) Non-Af 76 BUN/Creatinine Ratio 13.2 Glucose 152 H Calcium 8.7 Operations: None Procedures: None Summary of Care Provided: The patient is a 58 year old Male with below past medical history hospitalized for sepsis secondary to MSSA bacteremia secondary to urinary tract infection, complicated by left psoas muscle injury, intractable low back pain, admitted to TCU with debility, here for rehabilitation, strengthening, intravenous antibiotics, prior to discharge home with spouse. Discharge home with spouse. Patient Problems: Active and Suspected Problems (Last Updated 12/27/18 @ 07:53 by Ruben Sandoval DO) Sepsis (Acute) Muscle spasm (Acute) - Physical Exam Vital Signs Temp Pulse Resp BP Pulse Ox 98.6 F 87 18 177/83 H 96 01/24/19 16:00 01/24/19 16:00 01/24/19 16:00 01/24/19 16:00 01/24/19 16:00 Oxygen Delivery Method Room Air Weight: 169.445 kg Body Mass Index (BMI) 58.3 Intake and Output for Last 24 Hours 01/22/19 01/23/19 01/24/19 23:59 23:59 23:59 Intake Total 1214 / 1214 2085 / 2085 1200 / 1200 Balance 1214 / 1214 2085 / 2085 1200 / 1200 Laboratory Tests Past 24 Hrs 01/24/19 01/24/19 04:52 06:08 WBC 4.6 RBC 3.83 L Hgb 11.7 L Hct 35.5 L MCV 92.7 MCH 30.5 MCHC 33.0 RDW 13.4 RDW Differential 44.2 H Plt Count 257 MPV 9.6 Immature Gran % (Auto) 0.200 Neut % (Auto) 58.6 Lymph % (Auto) 20.4 Morrison % (Auto) 15.6 H Eos % (Auto) 5.0 Baso % (Auto) 0.2 Absolute Neuts (auto) 2.7 Absolute Lymphs (auto) 0.94 Total Counted Not Reportable Sodium 139 Potassium 4.2 Chloride 101 Carbon Dioxide 32.0 Anion Gap 6 BUN 14 Creatinine 1.06 Estim Creat Clear Calc 73.49 Est GFR (MDRD) Af Amer 92 Est GFR (MDRD) Non-Af 76 BUN/Creatinine Ratio 13.2 Glucose 152 H Calcium 8.7 Discharge Diet: No Restrictions Discharge Activity: Return to Normal Activity, May Shower, Use Walker May resume sexual activity in: No Restrictions Weight Bearing Status: Weight bearing as tolerated Call your doctor if you observe: Fever of 101 or Higher, Inability to urinate, Inability to have a bowel movement, Shortness of breath, Chest pain, Uncontrolled pain Home Medications: Medications to take at Discharge Albuterol Inhaler [Ventolin Hfa] 1 - 2 puff INHALATION Q4H PRN PRN #1 inhaler 08/08/14 Acetaminophen [Tylenol] 1,000 mg PO Q8H 12/28/18 Baclofen [Lioresal] 10 mg PO TIDCM #90 tablet 01/24/19 Ibuprofen 600 mg PO 4X/DAY PRN #30 tablet 01/24/19 Lisinopril [Zestril] 10 mg PO DAILY #30 tablet 01/24/19 Menthol [Bengay Vanishing Scent] 1 applic TOPICAL TID PRN PRN tube 01/24/19 Menthol/Lanolin/Calamine/Znox [Calmoseptine Ointment] 1 applic TOPICAL BID PRN tube 01/24/19 Mineral Oil/Petrolatum,White [Eucerin] 1 applic TOPICAL QHS jar 01/24/19 Oxycodone [Oxyir] 10 mg PO Q4H PRN PRN 7 Days #30 tab 01/24/19 Polyethylene Glycol 3350 [Miralax] 17 gm PO BID PRN #60 packet 01/24/19 Senna [Senokot] 1 tablet PO BID PRN #60 tablet 01/24/19 Following Prescrptions Were Given to Patient: Oxycodone [Oxyir] 10 mg PO Q4H PRN PRN 7 Days #30 tab PRN Reason: Severe Pain (6-05/25) Lisinopril [Zestril] 10 mg PO DAILY #30 tablet Polyethylene Glycol 3350 [Miralax] 17 gm PO BID PRN #60 packet PRN Reason: Constipation Senna [Senokot] 1 tablet PO BID PRN #60 tablet PRN Reason: Constipation Baclofen [Lioresal] 10 mg PO TIDCM #90 tablet Ibuprofen 600 mg PO 4X/DAY PRN #30 tablet PRN Reason: Pain Primary Care Physician: Elias Rachel MD [Primary Care Provider] - Please follow up with your Primary Care Physician in: 1 week. Disposition: Home Minutes spent on discharge:: 30 Patient Condition:: Good Medical Necessity - Tobacco Use Smoking Status: Never smoker Tobacco Use: Non-smoker Meaningful Use Info Meaningful Use Diagnoses (Choose all that apply): None applicable
[2019-01-25] MEDS: Ibuprofen 600 MG Tablet PO ×2 (03:02→20:37)
[2019-01-25] MEDS: 0.9% NaCl PICC Flush IV ×3 (05:34→22:34)
[2019-01-25] MEDS: Acetaminophen 500 MG Tablet 1000 MG PO ×3 (05:34→22:35)
[2019-01-25] MEDS: Lisinopril 10 MG Tablet PO (05:34)
[2019-01-25] MEDS: Enoxaparin 40 MG/0.4 ML Syringe SC (05:34)
[2019-01-25] MEDS: Cefazolin 2 GM in 0.9% Normal Saline 100 ML IV ×3 (05:38→22:34)
[2019-01-25] MEDS: Baclofen 10 MG Tablet PO ×3 (08:11→17:10)
[2019-01-25] MEDS: oxyCODONE 5 MG Tablet 10 MG PO ×3 (08:15→22:34)
[2019-01-25 16:00] VITALS: BP 144/84; PULSE 85; RESP 18; TEMP 36.8; O2SAT 98
[2019-01-25] MEDS: 0.9% NaCl IVPB Med Flush (250 mL) 15 ML IV (22:38)
[2019-01-26] MEDS: oxyCODONE 5 MG Tablet 10 MG PO ×3 (05:37→20:57)
[2019-01-26] MEDS: Cefazolin 2 GM in 0.9% Normal Saline 100 ML IV ×3 (05:38→22:30)
[2019-01-26] MEDS: Lisinopril 10 MG Tablet PO (05:38)
[2019-01-26] MEDS: Acetaminophen 500 MG Tablet 1000 MG PO ×3 (05:38→20:57)
[2019-01-26] MEDS: Enoxaparin 40 MG/0.4 ML Syringe SC (05:38)
[2019-01-26] MEDS: 0.9% NaCl PICC Flush IV ×3 (05:38→22:30)
[2019-01-26] MEDS: Baclofen 10 MG Tablet PO ×3 (09:23→17:06)
--- NOTE | 2019-01-26 10:12 | PCM.PN.ID ---
Patient Problems: Active and Suspected Problems (Last Updated 12/27/18 @ 07:53 by Ruben Sandoval DO) Sepsis (Acute) Muscle spasm (Acute) Subjective: Feeling well, pain in back much improved, no fever - Physical Exam General: Alert, Cooperative, No apparent distress Lungs: Clear to auscultation, Normal air movement Cardiovascular: Regular rate, Regular Rhythm Abdomen: Soft, Non Tender, Non-Distended Extremities: Edema Skin: No rashes Vital Signs Temp Pulse Resp BP Pulse Ox 98.2 F 85 18 144/84 H 98 01/25/19 16:00 01/25/19 16:00 01/25/19 16:00 01/25/19 16:00 01/25/19 16:00 Oxygen Delivery Method Room Air Weight: 169.445 kg Body Mass Index (BMI) 58.3 Intake and Output for Last 24 Hours 01/24/19 01/25/19 01/26/19 23:59 23:59 23:59 Intake Total 1741 / 1741 1460 / 1460 977 / 977 Balance 1741 / 1741 1460 / 1460 977 / 977 Medical Necessity - Tobacco Use Smoking Status: Never smoker Tobacco Use: Non-smoker Route of nutrition/ use of supplements: [] Nutritional Intake: [] IV Site: [] Villagran Catheter: [] - Assessment/Plan Antibiotics: [] Assessment/Plan: [] Active and Suspected Problems (Last Updated 12/27/18 @ 07:53 by Ruben Sandoval DO) Sepsis (Acute) Muscle spasm (Acute) sepsis (fever, tachycardia) due to MSSA bacteremia likely skin source. Repeat bcx neg since 12/30. Narrowed abx to cefazolin. No sign of splinter hemorrhages/janeway/osler on hands or feet. Continue on cefazolin, stop date 01/27. Weekly bmp, cbc while on iv abx. Remove picc prior to discharge. back pain - CT w/ contrast showed no osteo/discitis/epidural abscess. Unable to fit in mri here. Pain much improved. R foot inflammation - MRI done, no abscess seen, pt reports it is improving. Will follow as needed
[2019-01-26] MEDS: Ibuprofen 600 MG Tablet PO (13:04)
[2019-01-26 14:06] VITALS: BP 143/73; PULSE 90; RESP 20; TEMP 36.8; O2SAT 93
--- NOTE | 2019-01-26 14:43 | MDS.RN ---
Pain interview for gideon 01/28/19 completed.
--- NOTE | 2019-01-26 16:14 | CHAPLAIN ---
Type of Pastoral Visit ___ Initial Visit _x__ Follow-up Visit ___ On-call Visit ___ General Patient Visit ___ Spiritual Assessment ___ Family Conference ___ Bereavement ___ Rapid Response ___ Code Blue ___ Other (describe below) Pastoral Care Referral From _x__ Patient ___ Family ___ Nurse ___ Physician ___ Business Analytics Faculty Member ___ Infection Control Coordinator ___ Other (describe below) Sacrament/Intervention _x__ Active listening ___ Anointing ___ Yazdanism ___ Bereavement ___ Communion _x__ Irish exploration ___ _x__ Life review _x__ Prayer ___ Reconciliation ___ Sacrament of Sick ___ Supportive presence ___ Wedding ___ Other (describe below) Pastoral Comments patient had specific things to tell this quality analyst and several questions to discuss; pt expresses thankfulness for his experience in TCU and help from all staff
--- NOTE | 2019-01-26 16:28 | CASEMGMT ---
Social Work BIMS and PHQ-9 completed on this date for RIVKA 01/28/19. Andria Dobbins, ESTATE PLANNER RIGGING LOFT REPAIRER
[2019-01-27] MEDS: oxyCODONE 5 MG Tablet 10 MG PO ×3 (01:11→20:56)
[2019-01-27] MEDS: Cefazolin 2 GM in 0.9% Normal Saline 100 ML IV ×2 (06:28→13:35)
[2019-01-27] MEDS: Acetaminophen 500 MG Tablet 1000 MG PO ×3 (06:29→20:57)
[2019-01-27] MEDS: Enoxaparin 40 MG/0.4 ML Syringe SC (06:29)
[2019-01-27] MEDS: 0.9% NaCl PICC Flush IV ×2 (06:29→13:35)
[2019-01-27] MEDS: Lisinopril 10 MG Tablet PO (06:30)
[2019-01-27] MEDS: Baclofen 10 MG Tablet PO ×3 (07:31→17:23)
[2019-01-27] MEDS: Ibuprofen 600 MG Tablet PO (12:14)
[2019-01-27] MEDS: 0.9% NaCl IVPB Med Flush (250 mL) 15 ML IV (13:35)
[2019-01-27 15:34] VITALS: BP 149/81; PULSE 81; RESP 18; TEMP 36.8; O2SAT 97
[2019-01-28] MEDS: Ibuprofen 600 MG Tablet PO (02:31)
[2019-01-28] MEDS: Enoxaparin 40 MG/0.4 ML Syringe SC (06:08)
[2019-01-28] MEDS: Lisinopril 10 MG Tablet PO (06:08)
[2019-01-28] MEDS: Baclofen 10 MG Tablet PO (06:08)
[2019-01-28] MEDS: Acetaminophen 500 MG Tablet 1000 MG PO (06:09)
[2019-01-28] MEDS: oxyCODONE 5 MG Tablet 10 MG PO (08:57)
[2019-01-28 08:58] VITALS: PULSE 94; RESP 18; O2SAT 95
[2019-01-28 09:02] VITALS: BP 164/82; PULSE 96; RESP 20; TEMP 36.1; O2SAT 95
== END 2019-01-28 10:26 | disposition home or self-care (01) | DRG 948 ==
PROVIDERS: Admitting Provider Family Medicine Geriatric Medicine; Family Provider Family Medicine; PCP Family Medicine; Visit Provider Family Medicine Geriatric Medicine
DX: R53.81 Other malaise (principal); N30.00 Acute cystitis without hematuria; I10 Essential (primary) hypertension; E78.5 Hyperlipidemia, unspecified; E03.9 Hypothyroidism, unspecified; G47.33 Obstructive sleep apnea (adult) (pediatric); M62.838 Other muscle spasm; Z87.440 Personal history of urinary (tract) infections; B95.61 Methicillin susceptible Staphylococcus aureus infection as the cause of diseases classified elsewhere; Z23 Encounter for immunization; G89.29 Other chronic pain; M54.5 Low back pain
CPT/HCPCS: 36415; 73630; 80048; 84550; 85025; 85652; 86140; 87070; 87205; 97032; 97110; 97116; 97163; 97166; 97530; 97535; 97802; J7050; 90670; A4216

== ENCOUNTER → 2019-01-05 10:36 | Outpatient (CLI) | payer OTHER, SELFPAY ==
[2019-01-02 18:19] VITALS: BMI 58.3
--- NOTE | 2019-01-05 10:43 | CT_ITS ---
STUDY: CT LUMBAR SPINE WITH CONTRAST REASON FOR EXAM: Male, 58 years old. Low back pain RADIATION DOSAGE (If Supplied By Facility): CTDIvol = ( 47.14 ) mGy, DLP = ( 2707.68 ) mGycm TECHNIQUE: The patient was scanned in a multi detector CT scanner. High resolution transaxial imaging was performed following the intravenous administration of 100CC IV Isovue 300. Images were obtained from T12 to mid sacrum. Sagittal and coronal images were reconstructed. Individualized dose optimization techniques were used for this CT. COMPARISON: Prior study of 12/27/2018 FINDINGS: The study is technically suboptimal. Normal lumbar lordosis. There is no substantial scoliosis. There is mild endplate spondylosis of T12 and L1. L1-2: Normal endplates. There is moderate disc space narrowing. Normal bilateral facet joints. Normal central canal and bilateral lateral recesses. Normal bilateral intervertebral neural foramina. L2-3: Normal endplates. Normal disc height and morphology. Normal bilateral facet joints. Normal central canal and bilateral lateral recesses. Normal bilateral intervertebral neural foramina. L3-4: Normal endplates. Normal disc height and morphology. Normal bilateral facet joints. Normal central canal and bilateral lateral recesses. Normal bilateral intervertebral neural foramina. L4-5: There is posterior annular bulging. Disc spacing is preserved. There are mild bilateral degenerative facet changes. There is bilateral lateral recess stenosis and mild right foraminal stenosis. L5-S1: There is posterior annular bulging. There is mild disc space narrowing. The facets are within normal limits. There is no central canal stenosis. There is mild bilateral neural foraminal narrowing. Normal visualized paraspinous soft tissue structures. CT/Spine Lumbar WITH Contrast IMPRESSION: Limited study. Multilevel degenerative changes as detailed above. No lytic or blastic osseous changes are seen. Electronically Signed: Rno Hoyt MD at 18:56 EDT , Service support ,
== END ==
PROVIDERS: Family Provider Family Medicine; PCP Family Medicine; Referring Provider Internal Medicine Infectious Disease; Visit Provider Internal Medicine Infectious Disease
DX: M54.5 Low back pain (principal)
CPT/HCPCS: 72132; Q9967; A4216

== ENCOUNTER → 2019-01-18 09:25 | Outpatient (CLI) | payer OTHER, SELFPAY ==
[2019-01-02 18:19] VITALS: BMI 58.3
--- NOTE | 2019-01-18 12:00 | MRI_ITS ---
STUDY: MRI RIGHT FOREFOOT WITH AND WITHOUT CONTRAST REASON FOR EXAM: Redness, pain and swelling of the distal metatarsals of the right foot, evaluate for osteomyelitis. TECHNIQUE: Standardized fat and water weighted pulse sequences were obtained in all 3 orthogonal planes, post contrast administration. 30 IV Dotarem was administered for the contrast portion of the examination. COMPARISON: Radiographs 12/14/2018. FINDINGS: There is subchondral cystic change of the medial head of the first metatarsal at the metatarsophalangeal joint of the hallux (inversion recovery sagittal images 5, 6). There is a bipartite tibial sesamoid. Normal fibular sesamoid. Normal interphalangeal joint of the hallux. Normal proximal and distal phalanges of the great toe. Normal medial and lateral heads of the flexor hallucis brevis tendons. Normal flexor and extensor hallucis longus tendons. Normal second through fifth metatarsophalangeal (MTP) joints. Normal interphalangeal joints of the second through fifth toes. Normal proximal, middle and distal phalanges of the second through fifth toes. Normal flexor and extensor tendons of the second through fifth toes. Normal first through fourth intermetatarsal spaces. Normal metatarsals without bone edema. Normal intrinsic muscles of the forefoot. There is edema in the dorsal subcutis adipose space with contrast enhancement (postcontrast T1 sagittal images 12-28) suggestive of cellulitis. There is no discrete fluid collection to indicate soft tissue abscess. MRI/Lower Ext No Joint W/WO Cont IMPRESSION: Edema in the dorsal subcutis adipose space suggestive of cellulitis without demonstrated soft tissue abscess. No demonstrated osteomyelitis. Electronically Signed: Kwame Beck MD at 13:16 EDT Tel , Service support ,
== END ==
PROVIDERS: Family Provider Family Medicine; PCP Family Medicine; Referring Provider Family Medicine Geriatric Medicine; Visit Provider Family Medicine Geriatric Medicine
DX: M79.89 Other specified soft tissue disorders (principal)
CPT/HCPCS: 73720; A9575

== ENCOUNTER 2019-02-08 18:47 | Observation (INO) | payer OTHER, SELFPAY ==
[2019-01-02 18:19] VITALS: BMI 58.3
[2019-02-08 18:48] VITALS: BP 154/101; PULSE 104; RESP 18; TEMP 36.6; O2SAT 95; BMI 53.5
--- NOTE | 2019-02-08 19:50 | RAD_ITS ---
STUDY: X-RAY - RIGHT SHOULDER REASON FOR EXAM: Male, 58 years old. Pain TECHNIQUE: 4 view(s) of the shoulder. COMPARISON: None. FINDINGS: There is no evidence of fracture or dislocation. Mild degenerative changes are present at the acromioclavicular joint. There are no radiodense foreign bodies. RAD/Shoulder min 2 Views IMPRESSION: No fracture or dislocation. Electronically Signed: Thony Wyatt, at 20:04 EDT Tel , Service support ,
--- NOTE | 2019-02-08 19:57 | CM.ED ---
Social Work Assessment Referral Date: 02/08/19 Date of Assessment: 02/08/19 Informant: DR. JOHNSON Reason for Consult: D/C PLANNING Information obtained from: PATIENT AND PATIENT'S [facility] Living Arrangements: HOME WITH IN A 2 STORY HOME WITH 2-3 STEPS TO ENTER. DME: WALKER, CANE, LIFT CHAIR, WHEELCHAIR, SHOWER CHAIR, BEDSIDE COMMODE Employment/Financial: UNEMPLOYED/LIMITED INCOME Supports: IS PRIMARY CAREGIVER Social/Family Stressors: STATES IS UNABLE TO CONTINUE TO CARE FOR PATIENT IN THE HOME HE IS UNSAFE WITH MOBILITY D/T SHOULDER INJURY. Mental Health History: REPORTS BELIEVES PATIENT HAS DEPRESSION. PATIENT DENIES. Substance Abuse History: NONE Interventions: SOCIAL SERVICE ASSESSMENT DISCUSSED FINANCES AND LIMITED INCOME. WORKING 2 JOBS. EDUCATION PROVIDED ON MEDICAID AND HOME CARE WAIVER. LEFT MESSAGE ON REFERRAL LINE FOR TCU Assessment: PATIENT IS A 58 Y/O MALE WHO PRESENTS TO ED WITH UPPER EXTREMITY PAIN. REPORTS WHILE PATIENT WAS ON TCU FELT SHOULDER POP A FEW TIMES AND THEN PAIN WENT AWAY. STATES CAME HOME FROM WORK TODAY AND PATIENT WAS UNABLE TO USE ARM D/T SHOULDER PAIN. REPORTS PATIENT WAS D/C'ED FROM TCU ALMOST 2 WEEKS AGO. STATES IS UNABLE TO CONTINUE TO CARE FOR PATIENT IN THE HOME. TEARFUL DURING ASSESSMENT. MUCH EMOTIONAL SUPPORT AND EDUCATION PROVIDED TO BOTH PATIENT AND . BOTH REQUESTING REFERRAL TO TCU. CASE DISCUSSED WITH DR. JOHNSON. ANTICIPATE ADMISSION. PLAN: ADMIT. AND PATIENT REQUESTING REFERRAL TO TCU.
[2019-02-08] MEDS: HYDROmorphone 1 MG/ML Syringe IV ×2 (20:46→23:22)
[2019-02-08 21:02] LABS: Hematocrit 35.2 % (40-54); Hemoglobin 11.6 g/dl (13.0-16.5); Mean Corpuscular Hgb 30.2 pg (27.0-32.0); Mean Corpuscular Volume 91.7 fL (80-94); Mean Platelet Vol. 9.2 fl (6.2-12.0); POSITIVE COUNT NO; POSITIVE DIFFERENTIAL NO; POSITIVE MORPHOLOGY NO; Platelet Count 320 K/mm3 (150-450); RBC Distribution Width CV 13.9 % (11.6-14.6); RBC Distribution Width SD 46.3 fl (35.1-43.9); Red Blood Count 3.84 M/mm3 (4.6-6.2); White Blood Count 7.3 K/mm3 (4.4-11.0)
[2019-02-08 21:10] LABS: Anion Gap 8 (5-15); BUN 15 mg/dL (7-18); BUN/Creat Ratio 16.6 RATIO (10-20); Calcium,Total 8.7 mg/dL (8.5-10.1); Chloride 100 mmol/L (98-107); EST Glomerular Filtration Rate 92 mL/min (>60); Est Glom Filt Rate - Afr Amer 111 mL/min (>60); Estimated Creatinine Clearance 86.56 ml/min; Glucose 171 mg/dL (74-106); Potassium 4.3 mmol/L (3.5-5.1); Sodium Level 136 mmol/L (136-145)
--- NOTE | 2019-02-08 21:48 | ED.VISSUMM ---
- ER Visit Summary Date of Service: 02/08/19 Chief Complaint: Shoulder pain History of Present Illness: The patient is a 58 M with right shoulder pain. Patient was recently in the transitional care unit for a torn psoas muscle. He believes he injured his shoulder while he was admitted. He has been unable to use a walker or crutches because of the pain. Patient is also being treated for infectious diarrhea. He has trouble getting to the bathroom. He is not able to care for himself at home. Physical Examination: Afebrile and vital signs unremarkable. Patient alert and oriented. Right shoulder diffusely tender. Otherwise normal inspection. Neurovascular intact distally. Otherwise exam unremarkable. Test Results: Basic labs unremarkable. Shoulder x-ray negative. Emergency Department Course and Treatment: Patient treated with pain medicine. Labs and x-ray negative. Patient is unable to ambulate and take care of himself given his need to use a walker. His pain is out of control despite taking pain meds. He does not feel comfortable going home. We spoke with the shoe caser, and ultimately he felt that he would require placement. I spoke with the hospitalist who will observe for further care. Treatment Plan: As above Disposition: Admission Impression: 1. Right shoulder pain 2. Inability to ambulate This note was generated with [employer] dictation software. It may contain incorrect words, spelling, and punctuation that were not noted in review of the chart prior to signing ED Disposition - Plan for ED Patient: Referrals: Elias Rachel MD [Primary Care Provider] -
[2019-02-08 22:15] VITALS: BP 162/91; PULSE 93; RESP 18; O2SAT 96
--- NOTE | 2019-02-08 22:35 | HP.PCM_ITS ---
Problem List (1) History of left psoas muscle injury Status: Chronic (2) Chronic back pain Status: Chronic (3) MSSA bacteremia Status: Chronic (4) Muscle spasm Status: Chronic (5) Hypertension Status: Chronic (6) Muscle tear Status: Chronic History of Present Illness Date of Admission: 02/08/19 Chief Complaint: Right shoulder pain. The patient is a 58 year old M with past medical history as mentioned above presented to the emergency room because of right shoulder pain as well as intractable and uncontrolled low back pain. This patient was discharged from TCU around 2 weeks ago after admission for intractable low back pain due to left psoas muscle tear/injury. He has been using his walker at home and he has been using his right upper extremity to help him stand and ambulate. The last couple of days, he has been having left shoulder pain, sharp pain, 10 out of 10 severity, aggravated by movement, nonradiating, no associated symptoms and patient thinks that this pain because he has been using his right upper extremity to help him ambulate and stand up and he is a heavy weight patient. He denied trauma or mechanical fall to his right shoulder or right upper extremity. He mentioned that his lower back pain is not well controlled and he has been using oxycodone at home. He has been having difficulties ambulating at home given his weight and his is not able to take care of him at home. In the emergency department, his blood pressure was slightly elevated, other vital signs were stable. His routine blood work was unremarkable. X-ray of the right shoulder showed no acute findings, no fractures or dislocations. He is being admitted for right shoulder pain, intractable uncontrolled lower back pain, difficulty ambulating and debility and probably patient will need placement to jail facility. Past Medical History Past Medical History (Chronic Problems): Chronic Problems (Last Updated 12/27/18 @ 07:53 by Ruben Sandoval DO) History of left psoas muscle injury (Chronic) Chronic back pain (Chronic) MSSA bacteremia (Chronic) Muscle spasm (Chronic) Hypertension (Chronic) Muscle tear (Chronic) Medical History: Medical History (Last Updated 12/27/18 @ 07:53 by Ruben Sandoval DO) Hyperlipidemia E78.5 Hypothyroid E03.9 RO (obstructive sleep apnea) G47.33 HTN (hypertension) I10 Allergies No Known Allergies Allergy (Verified 02/08/19 18:47) Home Medications: Ambulatory Orders Medication Instructions Recorded Acetaminophen [Tylenol] 1,000 mg PO Q8H PRN PRN 12/28/18 Baclofen [Lioresal] 10 mg PO TIDCM #90 tablet 01/24/19 Ibuprofen 600 mg PO 4X/DAY PRN #30 tablet 01/24/19 Lisinopril [Zestril] 10 mg PO DAILY #30 tablet 01/24/19 Methyl Salicylate/Menthol [Icy Hot 1 applicatio TP 4X/DAY 02/08/19 Cream] Oxycodone HCl 5 mg PO Q6H PRN PRN 02/08/19 Surgical History: noncontributory, - Psychiatric History: No pertinent psych hx Lives: Spouse/ Significant Other Smoking Status: Never smoker Alcohol: None Drugs: None - *Family History Maternal Family History: Family History (Last Updated 12/27/18 @ 07:53 by Ruben Sandoval DO) Other CAD (coronary artery disease) History Items: No pertinent history Paternal Family History: Family History (Last Updated 12/27/18 @ 07:53 by Ruben Sandoval DO) Other CAD (coronary artery disease) History Items: No pertinent history Review of Systems Constitutional: Reports: Weakness. Denies: Anorexia, Chills, Fever Eyes: Denies: Blurred vision, Double vision, Drainage, Redness HEENT: Denies: Difficulty Hearing, Ear Pain, Eye Pain, Nasal Congestion, Sore Throat Cardiovascular: Denies: Chest Pain, Chest Pressure, Heaviness, Light Headedness, Palpitations, Syncope Respiratory: Denies: Cough, Pleuritic Pain, Shortness of Breath, Sputum production, Wheezing Gastrointestinal: Denies: Abdominal Pain, Constipation, Diarrhea, Nausea, Vomiting Genitourinary: Denies: Dysuria, Frequency, Hematuria Musculoskeletal: Reports: Back Pain, Shoulder Pain. Denies: Arm Pain, Hand Pain, Leg Pain Skin: Denies: Dryness, Rash Neurological: Denies: Balance problems, Double vision, Change in Speech, Slurred speech, Confusion, Headaches, Incoordination, Numbness, Tingling Psychiatric: Denies: Anxiety, Depression Endocrine: Denies: Change in Body Habitus, Polydipsia, Polyuria VTE Information - Inpt Only VTE Present on Admission: No VTE Mechan Device Prophylaxis: None VTE Pharm Prophylaxis ordered?: Yes - Physical Exam General: Alert, Oriented x3, Cooperative, No apparent distress HEENT: Atraumatic, PERRLA, EOMI, Normocephalic Oral: Moist Mucosa, No Gingival or Mucosal Lesions/ Ulcerations Neck: Supple, No JVD, Negative Carotid Bruits, Trachea Midline, Thyroid Normal Size and Texture Lungs: Clear to auscultation, Normal air movement, No rhonchi, No wheeze, No rales, Diminished Cardiovascular: Regular rate, Regular Rhythm, Normal S1, Normal S2, PMI Normal Abdomen: Bowel Sounds Present, Soft, Non Tender, Non-Distended, No Hepato- splenomegaly, Obese Extremities: No clubbing, No cyanosis, No edema, Edema Musculoskeletal: - Lymphatic: No Cervical, Supraclavicular, or Inguinal Adenopathy Neurological: Cranial nerves II-XII grossly intact, Motor Exam 5/5 strength throughout Psych/Mental Status: Normal Affect, Appropriate, Alert and oriented to time, place, person, mood and affect Vital Signs Temp Pulse Resp BP Pulse Ox 97.9 F 93 18 162/91 H 96 02/08/19 18:48 02/08/19 22:15 02/08/19 22:15 02/08/19 22:15 02/08/19 22:15 Oxygen Delivery Method Room Air Weight: 352 lb Body Mass Index (BMI) 53.5 Laboratory Tests Past 24 Hrs 02/08/19 02/08/19 20:47 20:47 WBC 7.3 RBC 3.84 L Hgb 11.6 L Hct 35.2 L MCV 91.7 MCH 30.2 MCHC 33.0 RDW 13.9 RDW Differential 46.3 H Plt Count 320 MPV 9.2 Neut % (Auto) Not Reportable Absolute Neuts (auto) Not Reportable Total Counted Not Reportable Sodium 136 Potassium 4.3 Chloride 100 Carbon Dioxide 28.0 Anion Gap 8 BUN 15 Creatinine 0.90 Estim Creat Clear Calc 86.56 Est GFR (MDRD) Af Amer 111 Est GFR (MDRD) Non-Af 92 BUN/Creatinine Ratio 16.6 Glucose 171 H Calcium 8.7 Clinical Impression(s) from Imaging Studies Shoulder X-Ray 02/08/19 19:50 IMPRESSION: No fracture or dislocation. Electronically Signed: Thony Wyatt, at 20:04 EDT Tel , Service support , Assessment/Plan This is a 58 years old male patient presented emergency because of right shoulder pain as well as uncontrolled low back pain secondary to recent history of left psoas muscle tear/injury, being admitted for uncontrolled pain, debility, difficulty ambulating and he will need placement to jail facility. #1 acute right shoulder pain: Probably musculoskeletal pain secondary to using his right upper extremity to help him stand, ambulate and use his walker and patient is a very heavy weight. X-ray of the right shoulder showed no acute fractures or dislocation. Patient lives at home with his , discharged from TCU around 2 weeks ago and he has been having difficulties ambulating and using his walker and his cannot take care of him because of his weight. Routine blood work was unremarkable. Blood pressure slightly elevated, other vital signs were stable. Plan: Admit to [facility] floor, ambulate as tolerated, start IV Dilaudid for pain as needed, continue oxycodone every 6 hours as needed, continue baclofen, PT OT evaluation and treatment, social security specialist and case management consult for placement to jail facility. Patient would like to go back to TCU. #2 uncontrolled low back pain/ recent history of left psoas muscle tear/injury: Patient had a recent admission to the hospital because of the left psoas muscle tear/injury and he was discharged to TCU. He has been on OxyIR 5 mg every 6 hours as needed and his pain is not well controlled. He has been having issues with mobility and ambulation. Plan: IV Dilaudid as needed for pain, increase OxyIR to 10 mg every 6 as needed, PT OT eval and treatment. #3 debility/functional decline/difficulty ambulating: Patient discharged from TCU recently, his weight is 372 pounds and his is tiny and she will not be able to take care of him at home. He has been using the walker with difficulties at home. Plan as above. #4 hypertension: Blood pressure slightly elevated, continue lisinopril, start IV hydralazine PRN. #5 morbid obesity. #6 DVT prophylaxis: Subcu Lovenox. This note was generated with PredictAdation software. It may contain incorrect words, spelling, and punctuation that were not noted in checking the note before signing. Code Visit OBSV E&M: 64718 Initial observation care L2
[2019-02-08 22:56] VITALS: BMI 55.7
[2019-02-08 23:01] VITALS: BP 169/80; PULSE 95; RESP 20; TEMP 36.7; O2SAT 97
[2019-02-08 23:04] VITALS: BMI 55.8
[2019-02-08 23:22] VITALS: PULSE 85
[2019-02-08] MEDS: Baclofen 10 MG Tablet PO (23:22)
[2019-02-08] MEDS: hydrALAZINE 20 MG/ML Vial 10 MG IV (23:22)
[2019-02-09] VITALS (7 sets, daily range): BP systolic 144–169; BP diastolic 79–98; PULSE 96–108; RESP 16–18; TEMP 36.1–37.4; O2SAT 95–98
[2019-02-09] MEDS: oxyCODONE 5 MG Tablet 10 MG PO ×3 (02:46→18:20)
[2019-02-09] MEDS: 0.9% NaCl Peripheral Flush Adult/Peds IV ×3 (05:01→14:50)
[2019-02-09] MEDS: HYDROmorphone 1 MG/ML Syringe IV ×2 (05:01→14:51)
[2019-02-09] MEDS: Baclofen 10 MG Tablet PO ×3 (06:05→18:16)
[2019-02-09] MEDS: Lisinopril 10 MG Tablet PO (06:05)
--- NOTE | 2019-02-09 07:38 | PCM.PN.HOSP ---
Subjective: Patient was seen and examined. He complains of persistent right shoulder pain. Unable to move or do any range of motion with the right shoulder. Denied any fever or chills. No diarrhea or abdominal pain. Objective: Physical Exam: General: Alert, Oriented x3, Cooperative, No apparent distress HEENT: Atraumatic, PERRLA, EOMI, Normocephalic Oral: Moist Mucosa, No Gingival or Mucosal Lesions/ Ulcerations Neck: Supple, No JVD, Negative Carotid Bruits, Trachea Midline, Thyroid Normal Size and Texture Lungs: Clear to auscultation, Normal air movement, No rhonchi, No wheeze, No rales, Diminished Cardiovascular: Regular rate, Regular Rhythm, Normal S1, Normal S2, PMI Normal Abdomen: Bowel Sounds Present, Soft, Non Tender, Non-Distended, No Hepato-splenomegaly, Obese Extremities: No clubbing, No cyanosis, No edema, Edema Musculoskeletal: Tenderness of right shoulder, unable to do any ROM Lymphatic: No Cervical, Supraclavicular, or Inguinal Adenopathy Neurological: Cranial nerves II-XII grossly intact, Motor Exam 5/5 strength throughout Psych/Mental Status: Normal Affect, Appropriate, Alert and oriented to time, place, person, mood and affect Vitals/I&O's: Vital Signs Temp Pulse Resp BP Pulse Ox 98.0 F 100 18 157/98 H 97 02/09/19 02:42 02/09/19 02:42 02/09/19 02:42 02/09/19 02:42 02/09/19 02:42 Oxygen Delivery Method Room Air Weight: 168.8 kg Body Mass Index (BMI) 55.7 Intake and Output for Last 24 Hours 02/07/19 02/08/19 02/09/19 23:59 23:59 23:59 Intake Total 900 / 900 Output Total 600 / 600 Balance 300 / 300 Laboratory Results 02/08/19 20:47: WBC 7.3, RBC 3.84 L, Hgb 11.6 L, Hct 35.2 L, MCV 91.7, MCH 30.2, MCHC 33.0, RDW 13.9, RDW Differential 46.3 H, Plt Count 320, MPV 9.2, Neut % (Auto) Not Reportable, Absolute Neuts (auto) Not Reportable, Total Counted Not Reportable 02/08/19 20:47: Sodium 136, Potassium 4.3, Chloride 100, Carbon Dioxide 28.0, Anion Gap 8, BUN 15, Creatinine 0.90, Estim Creat Clear Calc 86.56, Est GFR (MDRD) Af Amer 111, Est GFR (MDRD) Non-Af 92, BUN/Creatinine Ratio 16.6, Glucose 171 H, Calcium 8.7 Current Medications Acetaminophen (Tylenol) 650 mg PO Q6H PRN PRN PRN Reason: Mild Pain (1-3)/Temp > 100.7 F Baclofen (Lioresal) 10 mg PO TIDCM [facility] Last Admin: 02/09/19 06:05 Dose: 10 mg Documented by: Enoxaparin Sodium (Lovenox) 40 mg SC DAILY [facility] Hydralazine HCl (Apresoline Iv) 10 mg IV Q8H PRN PRN PRN Reason: for SBP>160 Last Admin: 02/08/19 23:22 Dose: 10 mg Documented by: Hydromorphone HCl (Dilaudid Inj) 1 mg IV Q4H PRN PRN PRN Reason: Severe pain (7-10/10) Last Admin: 02/09/19 05:01 Dose: 1 mg Documented by: Lisinopril (Zestril) 10 mg PO DAILY [facility] Last Admin: 02/09/19 06:05 Dose: 10 mg Documented by: Nutritional Formula (Lactose Free) (Ensure Enlive) 120 ml PO 4X/DAY [facility] Ondansetron HCl (Zofran) 4 mg IV Q8H PRN PRN PRN Reason: NAUSEA/VOMITING Oxycodone HCl (Oxyir) 10 mg PO Q6H PRN PRN PRN Reason: Severe pain (7-10/10) Last Admin: 02/09/19 02:46 Dose: 10 mg Documented by: Sodium Chloride () 5 - 15 ml IV UD PRN PRN Reason: SALINE FLUSH Last Admin: 02/09/19 05:01 Dose: 10 ml Documented by: Medical Necessity - Tobacco Use Smoking Status: Never smoker Assessment/Plan 58 years old male admitted with right shoulder pain as well as uncontrolled low back pain. He has a history of recent left psoas muscle tear/injury. Patient comes in with uncontrolled pain, debility, difficulty ambulating and needs placement to [facility] facility. 1. Acute right shoulder pain, musculoskeletal pain, no fractures on chest x-ray. Patient is unable to ambulate will due to pain in his shoulder. Orthopedic surgery consult to assess for possible intra-articular steroid injection, PT and OT to evaluate and treat 2. Uncontrolled low back pain/ recent history of left psoas muscle tear/injury, continue with pain control, PT and OT evaluation 3. Debility/functional decline/difficulty ambulating, patient requesting discharge to subacute care as he is unable to ambulate and his cannot take care of him 4. Hypertension, blood pressure is uncontrolled secondary to pain, increase lisinopril to 20 mg daily, continue on hydralazine as needed 5. Super morbid obesity, BMI 55.8, diet and exercise, may be a candidate for bariatric surgery 6. DVT prophylaxis - Lovenox SC. Code Visit Inpatient E&M: 45728 Subs Hosp L2
[2019-02-09] MEDS: hydrALAZINE 20 MG/ML Vial 10 MG IV (07:58)
--- NOTE | 2019-02-09 09:14 | CASEMGMT ---
Addendum entered by Jacquelin Phoenix 02/09/19 12:17: Return call from TCU and they do have beds available. Will await therapy evals and then request preauth from insurance. Pt aware. Pt also stating talked to JFS and pt will not qualify for Medicaid. If MMO does not approve SNF, pt will return home with his as private pay is not an option. Plan: TCU pending insurance authorization. MIKAEL Lr Original Note: Social Work Pt seen by ED YUSEF last evening and pt would like placed in TCU. Phone call placed to Francine in TCU and left VM inquiring about bed availability. SW met with pt and spoke with pt via speaker phone with pt present. Pt and would like TCU as pt is presenting with pain and inability to use shoulder and arm. SW explained that SW is awaiting return call from TCU for bed availability and that MMO will need to give preauthorization. SW explained that no guarantee that MMO will approve. Pt and state that if MMO denies pt will have to go home as they cannot afford private pay SNF. SW inquired about medicaid. ED SW provided phone number and application for medicaid and states she will apply today. Will await therapy evals and return call from TCU. MIKAEL Lr
[2019-02-09] MEDS: Enoxaparin 40 MG/0.4 ML Syringe SC (10:13)
[2019-02-09] MEDS: Acetaminophen 325 MG Tablet 650 MG PO ×2 (10:13→18:20)
--- NOTE | 2019-02-09 14:37 | CHAPLAIN ---
Type of Pastoral Visit _x__ Initial Visit ___ Follow-up Visit ___ On-call Visit ___ General Patient Visit ___ Spiritual Assessment ___ Family Conference ___ Bereavement ___ Rapid Response ___ Code Blue ___ Other (describe below) Pastoral Care Referral From _x__ Patient ___ Family ___ Nurse ___ Physician ___ Customer Relations Representative ___ Route Rider ___ Other (describe below) Sacrament/Intervention _x__ Active listening ___ Anointing ___ Restorationist ___ Bereavement ___ Communion _x__ Irish exploration ___ ___ Life review _x__ Prayer ___ Reconciliation ___ Sacrament of Sick _x__ Supportive presence ___ Wedding ___ Other (describe below) Pastoral Comments
--- NOTE | 2019-02-09 15:43 | PCM.CONS.GEN ---
Problem List (1) Right shoulder pain Status: Acute Reason for Consult Date of Consultation: 02/09/19 Reason for Consultation: Right shoulder pain/injury History of Present Illness: The patient is a 58 year old M [with a chief complaint of right dominant shoulder pain/injury that occurred around 2 weeks ago. He was previously admitted to the transitional care unit and rehabbing so as muscle injury. He also has a history of chronic low back pain. This dates back to 1997. While he was in the transitional care unit he admits that his right arm was overhead at one point he felt 3 pops or snaps and had increased pain. It started to improve he was discharged to home and from that point it continued to get worse. He was using a walker due to the so as muscle injury and he started to decline. His was not able to take care of him he was not able to ambulate with a walker due to the right shoulder pain. His brought him back to the emergency department and he was secondarily admitted due to inability to ambulate and right shoulder pain. There is currently pain at rest. It is at the superior aspect and anterior aspect of the right shoulder. It does not radiate outside of the shoulder. No neck elbow or wrist pain. He has a history of neuropathy but no new numbness or tingling into the hand. No fevers, chills, other signs of infection. It does keep him from sleeping. The IV and oral pain medications are helping to control his pain. On average he rates the pain at a 9 or 10 out of 10. It is worse with all movements. He is tearful during the exam about all of his weight. At one point he states that he is not always been this heavy.] Past Medical History Past Medical History (Chronic Problems): Chronic Problems (Last Updated 12/27/18 @ 07:53 by Ruben Sandoval DO) History of left psoas muscle injury (Chronic) Chronic back pain (Chronic) MSSA bacteremia (Chronic) Muscle spasm (Chronic) Hypertension (Chronic) Muscle tear (Chronic) Medical History: Medical History (Last Updated 12/27/18 @ 07:53 by Ruben Sandoval DO) Hyperlipidemia E78.5 Hypothyroid E03.9 RO (obstructive sleep apnea) G47.33 HTN (hypertension) I10 Allergies No Known Allergies Allergy (Verified 02/08/19 18:47) Home Medications: Ambulatory Orders Medication Instructions Recorded Acetaminophen [Tylenol] 1,000 mg PO Q8H PRN PRN 12/28/18 Baclofen [Lioresal] 10 mg PO TIDCM #90 tablet 01/24/19 Ibuprofen 600 mg PO 4X/DAY PRN #30 tablet 01/24/19 Lisinopril [Zestril] 10 mg PO DAILY #30 tablet 01/24/19 Methyl Salicylate/Menthol [Icy Hot 1 applicatio TP 4X/DAY 02/08/19 Cream] Oxycodone HCl 5 mg PO Q6H PRN PRN 02/08/19 Surgical History: noncontributory, - Psychiatric History: No pertinent psych hx Lives: Spouse/ Significant Other Smoking Status: Never smoker Alcohol: None Drugs: None - *Family History Maternal Family History: Family History (Last Updated 12/27/18 @ 07:53 by Ruben Sandoval DO) Other CAD (coronary artery disease) History Items: No pertinent history Paternal Family History: Family History (Last Updated 12/27/18 @ 07:53 by Ruben Sandoval DO) Other CAD (coronary artery disease) History Items: No pertinent history Review of Systems Comment: Review of systems are documented in the medical record electronically and were personally reviewed Patient Problems: Active and Suspected Problems (Last Updated 12/27/18 @ 07:53 by Ruben Sandoval DO) Right shoulder pain (Acute) Objective: Patient is alert and oriented x3 no acute distress at rest breathing easily without respiratory distress. There is a morbidly obese male sitting in the upright position in a wheelchair. Cervical spine is without gross deformity. Cervical spine is without tenderness to palpation. Gentle range of motion cervical spine without stiffness but has right shoulder pain with lateral bending to the right and the left. He has tenderness to palpation over the AC joint and subacromial space on the right. He has active forward elevation of the right shoulder to 30 degrees. Active abduction of the right shoulder at 30 degrees. Passive forward elevation and abduction to 90 degrees with pain. Passive external rotation to 45 degrees. Positive crossarm test on the right. Negative drop arm test on the right. Positive Rebolledo maneuver on the right. Strength resting graded 3+ out of 5 on the right. Right elbow without deformity. Right elbow without tenderness. Full range of motion right elbow without pain. Right wrist without deformity or tenderness. Full range of motion right wrist without pain. Full range of motion of the fingers on the right hand without pain. Windows Software Engineer strength graded 5 out of 5 bilaterally. Sensation intact to light touch. Capillary refill less than 3 seconds. Neurovascularly intact. - Physical Exam Vital Signs Temp Pulse Resp BP Pulse Ox 99.3 F H 101 H 18 169/91 H 98 02/09/19 14:44 02/09/19 14:44 02/09/19 14:44 02/09/19 14:44 02/09/19 14:44 Oxygen Delivery Method Room Air Weight: 168.8 kg Body Mass Index (BMI) 55.7 Intake and Output for Last 24 Hours 02/07/19 02/08/19 02/09/19 23:59 23:59 23:59 Intake Total 1500 / 1500 Output Total 1200 / 1200 Balance 300 / 300 Laboratory Tests Past 24 Hrs 02/08/19 02/08/19 20:47 20:47 WBC 7.3 RBC 3.84 L Hgb 11.6 L Hct 35.2 L MCV 91.7 MCH 30.2 MCHC 33.0 RDW 13.9 RDW Differential 46.3 H Plt Count 320 MPV 9.2 Neut % (Auto) Not Reportable Absolute Neuts (auto) Not Reportable Total Counted Not Reportable Sodium 136 Potassium 4.3 Chloride 100 Carbon Dioxide 28.0 Anion Gap 8 BUN 15 Creatinine 0.90 Estim Creat Clear Calc 86.56 Est GFR (MDRD) Af Amer 111 Est GFR (MDRD) Non-Af 92 BUN/Creatinine Ratio 16.6 Glucose 171 H Calcium 8.7 Assessment/Plan All Active Problems (Last Updated 12/27/18 @ 07:53 by Ruben Sandoval DO) Right shoulder pain (Acute) Diagnostic studies x-rays of right shoulder dated February 08, 2019 were reviewed they are with generalized degenerative changes primarily at the AC joint with a type II subacromial morphology without acute fracture dislocation lytic or blastic lesions Laboratory results were reviewed with white blood cell count of 7.3, hemoglobin of 11.6, hematocrit of 35.2, platelet count of 320 and elevated blood glucose at 171 Impression: Right shoulder AC joint arthritis subacromial bursitis possible underlying rotator cuff injury possible subacromial impingement Morbid obesity Hypertension Plan: Discussed and reviewed treatment options with patient at length. Recommended rest ice heat elevation for any pain or swelling. Recommended continuing the pain medications as prescribed but attempting to decrease the risk as deemed appropriate for his pain to minimize abuse potential. He voiced understanding. I recommended physical therapy to work on scapular strengthening exercises range of motion and modalities. I will place an order. He may be weightbearing as tolerated on the right upper extremity without restriction. We discussed the indications for cortisone injection. He did wish to proceed with cortisone injection into the subacromial space on the right. He tolerated procedure well. I recommended that he follow-up with orthopedics as an outpatient. If he is not responding to these conservative measures we may consider an MRI of the right shoulder at a later point. He did admit that his has seen Dr. Looney in the past and he may be interested in following up at the [facility]. Procedure note: Appropriate verbal consent was obtained from the patient. Under sterile conditions the right shoulder was prepared with Betadine followed by 2 sterile alcohol swabs using a 22-gauge spinal needle 2 cc of betamethasone and 4 cc of 1% lidocaine plain were injected into the subacromial space of the right shoulder. Sterile Band-Aid was used to cover injection site. Patient tolerated procedure well.
[2019-02-10] MEDS: oxyCODONE 5 MG Tablet 10 MG PO ×2 (01:30→07:47)
[2019-02-10] MEDS: Acetaminophen 325 MG Tablet 650 MG PO (01:30)
[2019-02-10 01:55] VITALS: BP 153/91; PULSE 89; RESP 16; TEMP 36.6; O2SAT 97
[2019-02-10] MEDS: Baclofen 10 MG Tablet PO ×2 (07:47→12:03)
[2019-02-10 07:48] VITALS: BP 162/90; PULSE 90; RESP 18; TEMP 36.9; O2SAT 98
--- NOTE | 2019-02-10 09:46 | PCM.PN.HOSP ---
Patient Problems: Active and Suspected Problems (Last Updated 12/27/18 @ 07:53 by Ruben Sandoval DO) Right shoulder pain (Acute) Subjective: Patient was seen and examined. Appreciate orthopedic consult. Had a bedside intra-articular shoulder injection done yesterday. Patient reports tremendous relief. Able to move his right shoulder. Denies any fever or chills. He is now willing to be discharged home if. PT and OT assessment did think he will be okay going home. He still has some back pain. His pain is 0/10 and increases to 6/10 when he moves Objective: Physical Exam: General: Alert, Oriented x3, Cooperative, No apparent distress HEENT: Atraumatic, PERRLA, EOMI, Normocephalic Oral: Moist Mucosa, No Gingival or Mucosal Lesions/ Ulcerations Neck: Supple, No JVD, Negative Carotid Bruits, Trachea Midline, Thyroid Normal Size and Texture Lungs: Clear to auscultation, Normal air movement, No rhonchi, No wheeze, No rales, Diminished Cardiovascular: Regular rate, Regular Rhythm, Normal S1, Normal S2, PMI Normal Abdomen: Bowel Sounds Present, Soft, Non Tender, Non-Distended, No Hepato-splenomegaly, Obese Extremities: No clubbing, No cyanosis, No edema, Musculoskeletal: Tenderness of right shoulder,improved compared to yesterday, able to do some range of motion Lymphatic: No Cervical, Supraclavicular, or Inguinal Adenopathy Neurological: Cranial nerves II-XII grossly intact, Motor Exam 5/5 strength throughout Psych/Mental Status: Normal Affect, Appropriate, Alert and oriented to time, place, person, mood and affect Vitals/I&O's: Vital Signs Temp Pulse Resp BP Pulse Ox 98.5 F 90 18 162/90 H 98 02/10/19 07:48 02/10/19 07:48 02/10/19 07:48 02/10/19 07:48 02/10/19 07:48 Oxygen Delivery Method Room Air Weight: 168.8 kg Body Mass Index (BMI) 55.7 Intake and Output for Last 24 Hours 02/08/19 02/09/19 02/10/19 23:59 23:59 23:59 Intake Total 1500 / 1500 500 / 500 Output Total 2450 / 2450 750 / 750 Balance -950 / -950 -250 / -250 Current Medications Acetaminophen (Tylenol) 650 mg PO Q6H PRN PRN PRN Reason: Mild Pain (1-3)/Temp > 100.7 F Last Admin: 02/10/19 01:30 Dose: 650 mg Documented by: Baclofen (Lioresal) 10 mg PO TIDCM ZARI Last Admin: 02/10/19 07:47 Dose: 10 mg Documented by: Hydralazine HCl (Apresoline Iv) 10 mg IV Q8H PRN PRN PRN Reason: for SBP>160 Last Admin: 02/09/19 07:58 Dose: 10 mg Documented by: Hydromorphone HCl (Dilaudid Inj) 1 mg IV Q4H PRN PRN PRN Reason: Severe pain (7-10/10) Last Admin: 02/09/19 14:51 Dose: 1 mg Documented by: Lisinopril (Zestril) 20 mg PO DAILY [facility] Ondansetron HCl (Zofran) 4 mg IV Q8H PRN PRN PRN Reason: NAUSEA/VOMITING Oxycodone HCl (Oxyir) 10 mg PO Q6H PRN PRN PRN Reason: Severe pain (7-10/10) Last Admin: 02/10/19 07:47 Dose: 10 mg Documented by: Sodium Chloride () 5 - 15 ml IV UD PRN PRN Reason: SALINE FLUSH Last Admin: 02/09/19 14:50 Dose: 10 ml Documented by: Medical Necessity - Tobacco Use Smoking Status: Never smoker Assessment/Plan All Active Problems (Last Updated 12/27/18 @ 07:53 by Ruben Sandoval DO) Right shoulder pain (Acute) 58 years old male admitted with right shoulder pain as well as uncontrolled low back pain. He has a history of recent left psoas muscle tear/injury. Patient comes in with uncontrolled pain, debility, and difficulty ambulating. 1. Acute right shoulder pain, musculoskeletal pain, no fractures on chest x-ray, s/p intra-articular shoulder injection, orthopedics consulted Appreciate input. Will wait on PT and OT evaluation for discharge disposition. 2. Acute on chronic low back pain/ recent history of left psoas muscle tear/injury, improving continue with pain control PT and OT evaluation 3. Debility/functional decline/difficulty ambulating, will wait on final recommendations 4. Hypertension, uncontrolled, on lisinopril to 20 mg daily, will monitor and continue on hydralazine as needed 5. Super morbid obesity, BMI 55.8, diet and exercise, may be a candidate for bariatric surgery 6. DVT prophylaxis - Lovenox SC. Code Visit Inpatient E&M: 04158 Subs Hosp L2
[2019-02-10] MEDS: Lisinopril 20 MG Tablet PO (10:17)
--- NOTE | 2019-02-10 11:24 | CASEMGMT ---
Addendum entered by Bekah Duong 02/10/19 12:03: Physician completed script for outpt PT. SW faxed it to [facility] w/a note to call pt to set up appt. SW gave pt the original script with the contact information for [facility] on it, let him know that SW did fax it over with a note to call pt to set it up, but also encouraged him to follow up if he does not hear from [facility]. Pt states understanding. No further needs, pt home w/outpt PT today. ZHEN Jacob Original Note: Pt was approved to go to [facility]. However, pt now voicing to staff he wants to go home. Pt worked w/PT and is doing well enough to go home, as per therapy. SW met w/pt, he confirmed wants to go home and do outpt PT, asked about doing it here. SW explained that we do not have outpt PT here, but at [facility]. Pt agreeable to therapy referral to [facility], but he wants to make the appt. SW explained will ask physician to complete the form for outpt PT to fax over to [facility] and will give pt the original. SW texted physician, let her know pt wants to go home and asked for outpt PT script. YUSEF notified Francine in TCU pt will be going home now. ZHEN Jacob
--- NOTE | 2019-02-10 11:37 | DCINST_ITS ---
- Discharge Diagnoses Current Active Problems: Current Active and Chronic Problems (Last Updated 12/27/18 @ 07:53 by Ruben Sandoval DO) Right shoulder pain (Acute) History of left psoas muscle injury (Chronic) Chronic back pain (Chronic) Reason(s) for Visit for Discharge Instructions: Shoulder pain You will use the following diet at home:: Regular Your food should be the consistency of: Regular Your liquids should be the consistency of: Regular/Thin Discharge Activity: Return to Normal Activity, May not drive while taking narcotic pain medications. Weight Bearing Status: Weight bearing as tolerated Additional Instructions: Follow-up with your primary care doctor within 1 to 2 weeks, follow-up with orthopedics physician within 2 weeks. Continue to use your assistive devices as recommended by physical and Occupational Therapy. You have been prescribed outpatient therapy. Allergies/Adverse Reactions: Allergies No Known Allergies Allergy (Verified 02/08/19 18:47) Medications to take at Discharge Acetaminophen [Tylenol] 1,000 mg PO Q8H PRN PRN 12/28/18 Baclofen [Lioresal] 10 mg PO TIDCM #90 tablet 01/24/19 Methyl Salicylate/Menthol [Icy Hot Cream] 1 applicatio TP 4X/DAY 02/08/19 Oxycodone HCl 5 mg PO Q6H PRN PRN 02/08/19 Lisinopril [Zestril] 20 mg PO DAILY #30 tab 02/10/19 The following prescriptions were given: Lisinopril [Zestril] 20 mg PO DAILY #30 tab Transmission Status: Pending to [facility]/pharmacy #[id number] Primary Care Physician: Elias Rachel MD [Primary Care Provider] - Please follow up with your Primary Care Physician in: within 1-2 weeks Test Results: Test results from this visit will be discussed in further detail at your follow- up appointment, if applicable. Please Follow Up With: Jameson Kenyon MD When: within 2 weeks Proposed Discharge Date: 02/10/19
--- NOTE | 2019-02-10 11:41 | DS.PCM_ITS ---
Discharge Date and Diagnosis - Problem List Patient Problems: Active and Suspected Problems (Last Updated 12/27/18 @ 07:53 by Ruben Sandoval DO) Right shoulder pain (Acute) Date of Admission: 02/08/19 Date of Discharge: 02/10/19 - Primary Discharge Diagnosis Active and Suspected Problems (Last Updated 12/27/18 @ 07:53 by Ruben Sandoval DO) Right shoulder pain (Acute) - Secondary Discharge Diagnosis Chronic Problems (Last Updated 12/27/18 @ 07:53 by Ruben Sandoval DO) History of left psoas muscle injury (Chronic) Chronic back pain (Chronic) MSSA bacteremia (Chronic) Muscle spasm (Chronic) Hypertension (Chronic) Muscle tear (Chronic) Hospital Course and Treatment Imaging Results: Clinical Impression(s) from Imaging Studies Shoulder X-Ray 02/08/19 19:50 IMPRESSION: No fracture or dislocation. Electronically Signed: Thony Wyatt, at 20:04 EDT Tel , Service support , Clinical Impression(s) from Imaging Studies Shoulder X-Ray 02/08/19 19:50 IMPRESSION: No fracture or dislocation. Electronically Signed: Thony Wyatt, at 20:04 EDT Tel , Service support , None Operations: None Procedures: None Summary of Care Provided: 58 years old male admitted with right shoulder pain as well as uncontrolled low back pain. He has a history of recent left psoas muscle tear/injury. Patient comes in with uncontrolled pain, debility, and difficulty ambulating. Patient was admitted to the regular floor. X-ray of the shoulder was negative. He was seen by orthopedics, who did a bedside intra-articular shoulder injection. Patient's pain was markedly improved. He was seen by PT and OT and felt improved. He was discharged home to follow-up with outpatient therapy. His BP meds were adjusted to lisinopril 20mg daily. Patient Problems: Active and Suspected Problems (Last Updated 12/27/18 @ 07:53 by Ruben Sandoval DO) Right shoulder pain (Acute) Subjective: see progress note Objective: see progress note - Physical Exam Vital Signs Temp Pulse Resp BP Pulse Ox 98.5 F 90 18 162/90 H 98 02/10/19 07:48 02/10/19 07:48 02/10/19 07:48 02/10/19 07:48 02/10/19 07:48 Oxygen Delivery Method Room Air Weight: 168.8 kg Body Mass Index (BMI) 55.7 Intake and Output for Last 24 Hours 02/08/19 02/09/19 02/10/19 23:59 23:59 23:59 Intake Total 1500 / 1500 500 / 500 Output Total 2450 / 2450 750 / 750 Balance -950 / -950 -250 / -250 Discharge Diet: Low fat/ Low Cholesterol, 2000 mg Sodium Diet Discharge Activity: Return to Normal Activity, May not drive while taking narcotic pain medications. Weight Bearing Status: Weight bearing as tolerated Home Medications: Medications to take at Discharge Acetaminophen [Tylenol] 1,000 mg PO Q8H PRN PRN 12/28/18 Methyl Salicylate/Menthol [Icy Hot Cream] 1 applicatio TP 4X/DAY 02/08/19 Oxycodone HCl 5 mg PO Q6H PRN PRN 02/08/19 Baclofen [Lioresal] 10 mg PO TIDCM PRN #90 tablet 02/10/19 Lisinopril [Zestril] 20 mg PO DAILY #30 tab 02/10/19 Following Prescrptions Were Given to Patient: Baclofen [Lioresal] 10 mg PO TIDCM PRN #90 tablet PRN Reason: Spasms Lisinopril [Zestril] 20 mg PO DAILY #30 tab Transmission Status: Received by [facility]/pharmacy #[id number] Primary Care Physician: Elias Rachel MD [Primary Care Provider] - Please follow up with your Primary Care Physician in: within 1-2 weeks Please Follow Up With: Jameson Kenyon MD When: within 2 weeks Disposition: Home Minutes spent on discharge:: 45 Patient Condition:: Stable Medical Necessity - Tobacco Use Smoking Status: Never smoker Tobacco Use: Non-smoker Meaningful Use Info Meaningful Use Diagnoses (Choose all that apply): None applicable Code Visit Inpatient E&M: 80972 Disch Hosp
[2019-02-10 14:39] VITALS: BP 160/83; PULSE 90; RESP 18; TEMP 36.8; O2SAT 98
[2019-02-10 17:10] VITALS: BP 146/98; PULSE 85; RESP 18; TEMP 36.7; O2SAT 98
== END 2019-02-10 17:42 | disposition home or self-care (01) ==
LOC: ED 20:14 → MS2 22:30
PROVIDERS: Admitting Provider Hospitalist; Emergency Provider Emergency Medicine; Family Provider Family Medicine; PCP Family Medicine; Referring Provider Hospitalist; Visit Provider Internal Medicine
DX: M25.511 Pain in right shoulder (principal); G89.29 Other chronic pain; I10 Essential (primary) hypertension; A09 Infectious gastroenteritis and colitis, unspecified; Z79.899 Other long term (current) drug therapy; G47.33 Obstructive sleep apnea (adult) (pediatric); E78.5 Hyperlipidemia, unspecified; E66.01 Morbid (severe) obesity due to excess calories; Z68.43 Body mass index [BMI] 50.0-59.9, adult; Z71.3 Dietary counseling and surveillance; S39.012D Strain of muscle, fascia and tendon of lower back, subsequent encounter; X58.XXXD Exposure to other specified factors, subsequent encounter
CPT/HCPCS: 20610; 73030; 80048; 85025; 96372; 96374; 96375; 96376; 97110; 97162; 97166; 97530; 97802; 99218; 99284; A4216; G0378; J0702

== ENCOUNTER 2019-03-09 08:15 | Outpatient (RCR) | payer OTHER, SELFPAY ==
--- NOTE | 2019-03-10 10:35 | HP.PTEVAL_ITS ---
Patient's Visit Information CASSI MORA is a 58 year old M referred to Physical Therapy by Elias Rachel MD with a diagnosis of LBP and L shoulder pain. Date of Evaluation: 03/09/19 Physical Therapist: Noel Kelly DPT - Visit Plan Frequency: 2x /Week Duration: 4 Weeks Plan: Start with core stability exercises, modalities including US and IFC. Work on increased BLE strength for increased functional mobility. Due to patients high level of pain, and limited toelrance to any and all mobility, I would recommend and MRI to rule out more sinister pathology. - Subjective Findings: Pt. is here today for his initial evaluation with diagnosis of LBP and shoulder pain. Pt. reports only having concern about his low back. Pt. reports having LBP for 20+ years after falling on his back earlier in life. Pt. has had pain since, but has become intense recently after being sick ealier this year. Pt. reports increased pain that radiates into his L hip, no N/T into LES. Pt. does have peripheral neuropathy, non diabetic. Pt. had reports having days where he can not stand, but other days where he can walk upto 20 ft. a couple of times a day. Pt. reports having no relief with any posotioning, does have some mild r elief with home TENS unit. Mild relief with tramadol and baclofen. Pt. arrived today in wheel chair due to inability to walking. Pt is very tearful throughout subjection questioning with reports of loss of quality of life and high levels of pain. - Pain LBP on L side Pain Intensity (Out of 10): 8 Pain Intensity Range: 6, 10 - Objective POSTURE: Pt. is over wt. Pt. had very flexed posture. Pt. has to brace with UEs to sitt and has extremly heavy use of UEs on AD to stand with PT assitances. Pt. required 3' to get to standing, very guarded and methodical pattern. PALPATION: Pt. has high levels of tenderness with palpation of L2-S1 spinous process, not as much pain with palpation of erector spine or multifidus msucles. NEURO: decreased sensation in BLEs, but dermotoms appear to be intact. Pt. has decreased patellar and achilles DTR. MMT: RLE- ankle 5/5 throughout; knee- ext 4+/5 increase in LBP, flexion 4/5 increase in LBP; hip- flexion 3-/5 increase in LBP, abd 3-/5 increase in LBP. LLE- 5/5 throughout; knee ext 4/5 increase in LBP, flexuon 4+/5 NE; hip- flexion 3-/5 incerase in LBP, abd 3-/5 increase in LBP. COre- poor-. GAIT: pt. was able to stand with mod/max assist to get to standing high levels of pain to complete. Pt. stands with flexed posture. Pt. was able to walk 5' with max use of FWW and limited step length (high levels of pain). - Goals Goal 1:: Pt. to be I with HEP. Goal Time Frame: 4-6 Weeks Goal 2:: Pt. to ambulate 100'+ with FWW with 0-2/10 pain allowing for increased household ambulation. Goal Time Frame: 4-6 Weeks Goal 3:: Pt. to be able to sit for upto 2 hours in comfortable chair with 0-2/10 pain in lumbar spine. Goal Time Frame: 4-6 Weeks Goal 4:: Pt. to have increased BLE and core strength increased by 1/2 grade to decrease stress applied to lumbar spine with all functional mobility. Goal Time Frame: 4-6 Weeks Goal 5:: Pt. to sleep throughout the night without increase in symptoms allowing for improved quality of life. Goal Time Frame: 4-6 Weeks - Rehabilitation Potential Physical Therapy Diagnosis: Pt. has signs and symptoms consistent with LBP, with slight radicular symptoms into L hip. pt. did not have a directional preference with his movements, but was only able to tolerate light movements this date. Pt. is unable to lie down and reports that he would not be able to get up if we was to lie down. Pt. has some distal leg symptoms, but do not directly correlate with his LBP. Pt. was unable to complete any special testing secondary to pain. Pt. really needs to increase movement, but is having such high pain he is not to lerating any movements. I am unable to full assess discogenic pathologies due to limited tolerance to any movements and walking, standing. I would recommend possible MRI to rule out more sinister lumbar spine pathology. Rehabilitation Potential: Fair - Anticipated Interventions Patient/Client Instruction: Educate patient on: Condition, Plan of Care, Risk Factors, Benefits of Fitness Program For the Purpose of:: To foster healthy habits, To improve decision making, To facilitate caregiver knowledge, To improve self management, To prevent re- injury, To improve ability to perform tasks related to life management, To improve tolerance to ADL's Therapeutic Exercise to Include: Strength training, Power training, Endurance training, Postural training, Flexibilty training, Gait and locomotor training, Passive ROM, Active ROM, Dynamic Lumbar Stabilization, Mariya Exercises For the Purpose of:: To decrease pain, To increase ROM, To improve nutrient delivery to tissue, To increase oxygenation perfusion, To improve muscle performance and motor function, To improve ability to perform ADL's, To improve gait and locomotor functions, To improve health of tissue, To decrease soft tissue restriction, To increase flexibility/ROM, To improve endurance, To im prove balance, To improve safety with gait, To assume or resume ADL's TENS: Yes IF ES: Yes Cryotherapy (ice pack, ice massage): Yes For the Purpose of:: To decrease pain, To increase ROM, To improve nutrient delivery to tissue, To increase oxygenation perfusion, To improve muscle performance and motor function, To improve ability to perform ADL's Thank you for the opportunity to evaluate your patient. For Medicare and Medicare HMO plans, please review the plan of care and approve it. It will need to be FAXED BACK to us at [phone] for Medicare purposes. For Medicare only, by signing this I certify the plan of care. Please let me know if there are questions or concerns regarding this plan of care. Physician Signature: Date:
== END 2019-03-09 19:00 | disposition home or self-care (01) ==
LOC: PT 08:15
PROVIDERS: Family Provider Family Medicine; Referring Provider Family Medicine; Visit Provider Family Medicine
DX: M54.5 Low back pain (principal); M25.511 Pain in right shoulder
CPT/HCPCS: 97161

== ENCOUNTER → 2019-03-10 10:48 | Outpatient (CLI) | payer OTHER, SELFPAY ==
[2019-02-08 22:56] VITALS: BMI 55.7
[2019-03-10 13:08] LABS: Absolute Neutrophil Count 5.8 X10^3/uL (2.0-7.7); Basophil# 0.04 X10^3/uL; Basophil% 0.5 % (0-1); Eosinophil# 0.15 X10^3/uL; Eosinophils% 1.9 % (0-5); Hematocrit 36.3 % (40-54); Hemoglobin 11.6 g/dL (13.0-16.5); Lymphocyte % 12.7 % (19-41); Mean Corpuscular Hgb 29.8 pg (27.0-32.0); Mean Corpuscular Volume 93.3 fL (80-94); Mean Platelet Vol. 9.8 fl (6.2-12.0); Monocyte# 0.83 X10^3/uL; Monocyte% 10.5 % (0-10); NRBC Flagged by Analyzer 0 % (0-5); Neutrophil # 5.82 X10^3/uL (2.7-7.7); Neutrophil % 73.9 % (47-70); Platelet Count 366 K/mm3 (150-450); RBC Distribution Width CV 14.7 % (11.6-14.6); RBC Distribution Width SD 49.9 fl (35.1-43.9); Red Blood Count 3.89 M/mm3 (4.6-6.2); White Blood Count 7.9 K/mm3 (4.4-11.0)
[2019-03-10 13:37] LABS: ALB/GLOB Ratio 0.6 RATIO (0.9-2.4); AST(SGOT) 18 U/L (15-37); Alanine Aminotransfer ALT/SGPT 36 U/L (16-61); Albumin, Serum 2.7 g/dL (3.2-5.0); Alkaline Phosphatase 111 U/L (45-117); Anion Gap 9 (5-15); BUN 19 mg/dL (7-18); BUN/Creat Ratio 21.9 RATIO (10-20); Calcium,Total 9.3 mg/dL (8.5-10.1); Chloride 103 mmol/L (98-107); Creatinine, Serum 0.87 mg/dL (0.70-1.30); EST Glomerular Filtration Rate 96 mL/min (>60); Est Glom Filt Rate - Afr Amer 116 mL/min (>60); Globulin 4.8 g/dL (2.2-4.2); Glucose 108 mg/dL (74-106); PSA,Total - Annual Screen 1.57 ng/mL (0.00-4.00); Potassium 4.7 mmol/L (3.5-5.1); Protein, Total 7.5 g/dL (6.4-8.2); Sodium Level 138 mmol/L (136-145); Thyroid Stim Hormone (TSH) 2.75 uIU/mL (0.358-3.74)
[2019-03-10 14:07] LABS: Hepatitis C Antibody Non-Reactive (Nonreactive)
== END ==
PROVIDERS: Family Provider Family Medicine; PCP Family Medicine; Visit Provider Family Medicine Geriatric Medicine
DX: Z00.00 Encounter for general adult medical examination without abnormal findings (principal); Z13.89 Encounter for screening for other disorder; Z12.5 Encounter for screening for malignant neoplasm of prostate
CPT/HCPCS: 36415; 80053; 84153; 84443; 85025; 86803; G0103

== ENCOUNTER 2019-03-17 18:35 | Inpatient (IN) | payer OTHER, SELFPAY ==
[2019-03-17 19:08] VITALS: BP 154/77; PULSE 76; RESP 20; TEMP 36.5; O2SAT 94
[2019-03-17 19:50] VITALS: BMI 53.9
[2019-03-17 19:56] VITALS: BMI 54.0
[2019-03-17 20:00] VITALS: RESP 20
[2019-03-17] MEDS: oxyCODONE 5 MG Tablet PO (20:45)
[2019-03-17] MEDS: Baclofen 10 MG Tablet PO (20:45)
--- NOTE | 2019-03-17 20:46 | HP.PCM_ITS ---
Problem List (1) Abscess in epidural space of lumbar spine Status: Acute (2) Lumbar discitis Status: Acute (3) Psoas abscess Status: Acute (4) Obstructive sleep apnea Status: Chronic (5) Hyperlipidemia Status: Chronic (6) Hypothyroidism Status: Chronic (7) Psoas tendinitis Status: Chronic (8) Morbid obesity Status: Chronic (9) Headache Status: Chronic (10) Osteoarthritis Status: Chronic (11) Chronic back pain Status: Chronic (12) MSSA bacteremia Status: Acute (13) Hypertension Status: Chronic History of Present Illness Date of Admission: 03/17/19 Chief Complaint: Here for rehabilitation, strengthening, intravenous antibiotics, prior to discharge home with spouse. The patient is a 58 year old Male with below past medical history with followin 03/10/2019 Admit to [facility]. Low Back Pain x 3 weeks, worsening, patient crying in pain. K 5.2, C-reactive protein 67, Glucose 234, Hemoglobin 12.3, WBC 9.2. ESR 123. EKG sinus rhythm, Chest X-ray negative. MRI spondylo-discitis, L4-L5 epidural abscess. IV fluids, blood cultures, consult Orthopedics, consult Infectious Disease. 03/11/2019 Dr. Neely performed L4-L5 microdiscectomy with incision, drainage. Vancomycin, Cefepime IV started post-operatively. 03/10/2019 Blood culture grew MSSA. 03/16/2019 Dual lumen PICC left upper extremity. Nafcillin IV Q4H, stop date 05/09/2019. Dilaudid for pain control. Transesophageal echocardiogram NEGATIVE heart valve vegetations. Fever 03/15/2019, recommend CT lumbar spine if spiking fever recurs to monitor for return of abscess. 03/17/2019 Admit to TCU with debility, here for rehabilitation, strengthening, intravenous antibiotics, prior to discharge home with spouse. Past Medical History Past Medical History (Chronic Problems): Chronic Problems (Last Updated 12/27/18 @ 07:53 by Ruben Sandoval DO) Obstructive sleep apnea (Chronic) Hyperlipidemia (Chronic) Hypothyroidism (Chronic) Psoas tendinitis (Chronic) Morbid obesity (Chronic) Headache (Chronic) Osteoarthritis (Chronic) History of left psoas muscle injury (Chronic) Chronic back pain (Chronic) Muscle spasm (Chronic) Hypertension (Chronic) Muscle tear (Chronic) Medical History: Medical History (Last Updated 12/27/18 @ 07:53 by Ruben Sandoval DO) Hyperlipidemia E78.5 Hypothyroid E03.9 RO (obstructive sleep apnea) G47.33 HTN (hypertension) I10 Allergies No Known Allergies Allergy (Verified 02/08/19 18:47) Home Medications: Ambulatory Orders Medication Instructions Recorded Oxycodone HCl 5 mg PO Q6H PRN PRN 02/08/19 Baclofen [Lioresal] 10 mg PO TIDCM PRN #90 tab 02/10/19 Lisinopril [Zestril] 20 mg PO DAILY 03/17/19 Surgical History: - - Thumb cyst removal, Plantar fasciitis surgery. Psychiatric History: No pertinent psych hx Lives: Spouse/ Significant Other Smoking Status: Never smoker Tobacco Use: Non-smoker Alcohol: None Drugs: None - *Family History Maternal Family History: Family History (Last Updated 12/27/18 @ 07:53 by Ruben Sandoval DO) Other CAD (coronary artery disease) History Items: No pertinent history Paternal Family History: Family History (Last Updated 12/27/18 @ 07:53 by Ruben Sandoval DO) Other CAD (coronary artery disease) History Items: No pertinent history VTE Information - Inpt Only VTE Present on Admission: No VTE Mechan Device Prophylaxis: Knee High ELLE Hose VTE Pharm Prophylaxis ordered?: Yes Patient Problems: Active and Suspected Problems (Last Updated 12/27/18 @ 07:53 by Ruben Sandoval DO) Abscess in epidural space of lumbar spine (Acute) Lumbar discitis (Acute) Psoas abscess (Acute) - Physical Exam Weight: 161.025 kg Body Mass Index (BMI) 53.9 Assessment/Plan All Active Problems (Last Updated 12/27/18 @ 07:53 by Ruben Sandoval DO) Right shoulder pain (Acute) Abscess in epidural space of lumbar spine (Acute) Lumbar discitis (Acute) Psoas abscess (Acute) MSSA bacteremia (Acute) 58 year old male with below past medical history hospitalized for MSSA bacteremia, lumbar epidural abscess, lumbar discitis, underwent microdiscectomy with incision and drainage 03/11/2019, admitted to TCU with debility, here for rehabilitation, strengthening, intravenous antibiotics, prior to discharge home with spouse. * Debility - PT/OT. * Pain - Tylenol 1000MG TID, Tramadol 50MG Q6H PRN moderate pain, Oxycodone 10MG Q4H PRN severe pain. * Bowel - Miralax 17GM daily, Senna/colace 2 tablets BID, Dulcolax 10MG daily PRN. * Pneumonia vaccination - Consider Pneumovax 23 if not received due to Diabetes Mellitus II. * DVT prophylaxis - Lovenox 40MG SC daily. * Muscle spasm - Baclofen 10MG TID. * Hypertension - Bisoprolol 5MG daily, HCTZ 6.25MG daily, Lisinopril 20MG daily. * Shortness of breath - Duoneb 3ML Q4H PRN. * Hypothyroidism - Levothyroxine 88MCG daily. * Low back pain - Lidoderm patch 2 patches daily. * Diabetes Mellitus II - Metformin 500MG twice daily, monitor blood sugars. * MSSA bacteremia/lumbar epidural abscess/lumbar discitis - Oxacillin 2GM IV Q4H thru 05/09/2019. Pharmacy will run out of Oxacillin in 2 days, will review MSSA susceptibility, substitute antibiotic until Wednesday, then consult Dr. Russell for expert care.
[2019-03-17] MEDS: 0.9% NaCl PICC Flush IV (22:25)
[2019-03-17] MEDS: Acetaminophen 500 MG Tablet 1000 MG PO (22:25)
[2019-03-17] MEDS: 0.9% NaCl IVPB Med Flush (250 mL) 15 ML IV (22:29)
[2019-03-17] MEDS: traMADol 50 MG Tablet PO (23:47)
[2019-03-18] MEDS: oxyCODONE 5 MG Tablet 10 MG PO ×4 (04:23→21:48)
[2019-03-18 05:21] LABS: Absolute Lymphocyte Count 0.94 X10^3/uL (0.83-4.51); Absolute Neutrophil Count 5.9 X10^3/uL (2.0-7.7); Basophil# 0.02 X10^3/uL; Basophil% 0.3 % (0-1); Eosinophil# 0.24 X10^3/uL; Hematocrit 34.8 % (40-54); Hemoglobin 11.3 g/dL (13.0-16.5); Lymphocyte # 0.94 X10^3/ul (4.0); Lymphocyte % 11.8 % (19-41); Mean Corp Hgb Conc 32.5 g/dL (32-36); Mean Corpuscular Hgb 30.1 pg (27.0-32.0); Mean Corpuscular Volume 92.6 fL (80-94); Mean Platelet Vol. 9.5 fl (6.2-12.0); Monocyte# 0.76 X10^3/uL; Monocyte% 9.5 % (0-10); NRBC Flagged by Analyzer 0 % (0-5); Neutrophil # 5.94 X10^3/uL (2.7-7.7); Neutrophil % 74.5 % (47-70); Platelet Count 192 K/mm3 (150-450); RBC Distribution Width CV 14.6 % (11.6-14.6); RBC Distribution Width SD 49.2 fl (35.1-43.9); Red Blood Count 3.76 M/mm3 (4.6-6.2)
[2019-03-18 05:35] LABS: Anion Gap 9 (5-15); BUN 15 mg/dL (7-18); BUN/Creat Ratio 16.9 RATIO (10-20); Calcium,Total 8.6 mg/dL (8.5-10.1); Chloride 100 mmol/L (98-107); Creatinine, Serum 0.89 mg/dL (0.70-1.30); EST Glomerular Filtration Rate 93 mL/min (>60); Est Glom Filt Rate - Afr Amer 113 mL/min (>60); Estimated Creatinine Clearance 87.53 ml/min; Glucose 139 mg/dL (74-106); Potassium 3.9 mmol/L (3.5-5.1); Sodium Level 138 mmol/L (136-145)
[2019-03-18] MEDS: Lisinopril 20 MG Tablet PO (06:12)
[2019-03-18] MEDS: hydroCHLOROthiazide 6.25mg TAB 6.25 MG PO (06:12)
[2019-03-18] MEDS: Acetaminophen 500 MG Tablet 1000 MG PO ×3 (06:12→21:47)
[2019-03-18] MEDS: Levothyroxine 88 MCG Tablet PO (06:12)
[2019-03-18] MEDS: Enoxaparin 40 MG/0.4 ML Syringe SC (06:12)
[2019-03-18] MEDS: Bisoprolol Fumarate 5 MG Tablet PO (06:12)
[2019-03-18 06:51] LABS: Bedside Glucose 136 mg/dL (70-110)
[2019-03-18] MEDS: Baclofen 10 MG Tablet PO ×3 (08:49→17:25)
[2019-03-18] MEDS: metFORMIN HCl 500 MG Tablet PO ×2 (08:49→17:25)
[2019-03-18] MEDS: Tuberculin,Purif.prot.deriv. 50 TU/ML Vial 5 ML ID (09:30)
[2019-03-18 11:20] LABS: Bedside Glucose 131 mg/dL (70-110)
[2019-03-18 15:22] VITALS: BP 151/79; PULSE 74; RESP 19; TEMP 37.2; O2SAT 96
[2019-03-18] MEDS: Lidocaine 5% Patch 2 PATCH TOPICAL (15:46)
[2019-03-18 17:10] LABS: Bedside Glucose 115 mg/dL (70-110)
[2019-03-18 21:25] LABS: Bedside Glucose 133 mg/dL (70-110)
[2019-03-18] MEDS: 0.9% NaCl IVPB Med Flush (250 mL) 15 ML IV (21:40)
[2019-03-18] MEDS: 0.9% NaCl PICC Flush IV (21:43)
[2019-03-18] MEDS: Nystatin Powder 15gm Bottle 1 APPLIC TOPICAL (21:51)
[2019-03-19] MEDS: oxyCODONE 5 MG Tablet 10 MG PO (02:24)
[2019-03-19] MEDS: Nystatin Powder 15gm Bottle 1 APPLIC TOPICAL ×2 (06:36→21:59)
[2019-03-19] MEDS: Levothyroxine 88 MCG Tablet PO (06:37)
[2019-03-19] MEDS: Lidocaine 5% Patch 2 PATCH TOPICAL (06:37)
[2019-03-19] MEDS: Acetaminophen 500 MG Tablet 1000 MG PO ×3 (06:39→21:58)
[2019-03-19] MEDS: Lisinopril 20 MG Tablet PO (06:39)
[2019-03-19] MEDS: Senna/Docusate Sodium 1 Tablet 2 TABLET PO (06:39)
[2019-03-19] MEDS: Bisoprolol Fumarate 5 MG Tablet PO (06:39)
[2019-03-19] MEDS: Enoxaparin 40 MG/0.4 ML Syringe SC (06:41)
[2019-03-19] MEDS: hydroCHLOROthiazide 6.25mg TAB 6.25 MG PO (06:42)
[2019-03-19 07:06] LABS: Bedside Glucose 148 mg/dL (70-110)
[2019-03-19] MEDS: Baclofen 10 MG Tablet PO ×3 (08:51→17:00)
[2019-03-19] MEDS: metFORMIN HCl 500 MG Tablet PO ×2 (08:51→17:00)
[2019-03-19] MEDS: 0.9% NaCl PICC Flush IV ×3 (09:42→22:00)
[2019-03-19 10:51] LABS: Bedside Glucose 151 mg/dL (70-110)
[2019-03-19 16:00] VITALS: BP 153/73; PULSE 86; RESP 18; TEMP 37.3; O2SAT 96
[2019-03-19] MEDS: Hydrocortisone 2.5% Crm 1 APPLIC TOPICAL (16:59)
[2019-03-19] MEDS: 0.9% NaCl IVPB Med Flush (250 mL) 15 ML IV ×2 (17:00→21:59)
[2019-03-19 17:40] LABS: Bedside Glucose 127 mg/dL (70-110)
[2019-03-19 21:40] LABS: Bedside Glucose 114 mg/dL (70-110)
[2019-03-20] MEDS: oxyCODONE 5 MG Tablet 10 MG PO ×4 (01:28→23:21)
[2019-03-20 06:25] LABS: Bedside Glucose 158 mg/dL (70-110)
[2019-03-20] MEDS: 0.9% NaCl PICC Flush IV ×4 (06:29→21:41)
[2019-03-20] MEDS: Acetaminophen 500 MG Tablet 1000 MG PO ×3 (06:30→21:48)
[2019-03-20] MEDS: Lisinopril 20 MG Tablet PO (06:30)
[2019-03-20] MEDS: Lidocaine 5% Patch 2 PATCH TOPICAL (06:30)
[2019-03-20] MEDS: hydroCHLOROthiazide 6.25mg TAB 6.25 MG PO (06:30)
[2019-03-20] MEDS: Levothyroxine 88 MCG Tablet PO (06:30)
[2019-03-20] MEDS: Nystatin Powder 15gm Bottle 1 APPLIC TOPICAL ×2 (06:30→21:51)
[2019-03-20] MEDS: Bisoprolol Fumarate 5 MG Tablet PO (06:30)
[2019-03-20] MEDS: Enoxaparin 40 MG/0.4 ML Syringe SC (06:31)
--- NOTE | 2019-03-20 07:16 | PCM.RX.CS ---
Consult Type of Consult: New start Suspected Infection: Other Labs: Sodium 138 mmol/L (136-145) 03/18/19 05:15 Potassium 3.9 mmol/L (3.5-5.1) 03/18/19 05:15 Chloride 100 mmol/L (98-107) 03/18/19 05:15 Carbon Dioxide 29.0 mmol/L (21.0-32.0) 03/18/19 05:15 9 (5-15) 03/18/19 05:15 BUN 15 mg/dL (7-18) 03/18/19 05:15 0.89 mg/dL (0.70-1.30) 03/18/19 05:15 Est GFR (MDRD) Af Amer 113 mL/min (>60) 03/18/19 05:15 Est GFR (MDRD) Non-Af 93 mL/min (>60) 03/18/19 05:15 16.9 RATIO (10-20) 03/18/19 05:15 Glucose 139 mg/dL (74-106) H 03/18/19 05:15 Pharmacy Plan for Drug Dosing: Medication was used for 1 day while Oxacillin was obtained, then it was DC'd. Pharmacy Service will continue to monitor and adjust dosing as required.
[2019-03-20] MEDS: Baclofen 10 MG Tablet PO ×3 (08:35→18:19)
[2019-03-20] MEDS: metFORMIN HCl 500 MG Tablet PO ×2 (08:35→18:19)
[2019-03-20 11:01] LABS: Bedside Glucose 138 mg/dL (70-110)
--- NOTE | 2019-03-20 11:29 | NURSING ---
Addendum entered by Sunitha Mosher 03/20/19 13:54: Dr Russell on floor to see pt. Original Note: pt noted with red raised itchy rash around neck, in crease of elbows, down back and sides. Updated Dr Russell awaiting return call. cortisone cream applied to areas. A sheet placed between green pad and pt skin per pt request.
[2019-03-20] MEDS: Hydrocortisone 2.5% Crm 1 APPLIC TOPICAL ×2 (12:14→20:10)
--- NOTE | 2019-03-20 14:49 | PCM.HP.ID ---
Problem List (1) Abscess in epidural space of lumbar spine Status: Acute Reason for Consult: rash Consulted by: Dr. Otero History of Present Illness: The patient is a 58 year old M admission here in 12/2018 followed by TCU stay for psoas muscle tear and and MSSA bacteremia. Completed course of cefazolin in mid-January. Over past month, c/o progressive back pain, fever, chills. Admitted to [facility], taken to OR 03/08/19 for L4/5 I&D of epidural abscess. Bcx again with mssa. Had TORRES done. ID physician was Dr. Wong. Discharged on nafcillin to TCU. Back feeling better. Oxacillin was unavailable, so changed to vanc 03/19-03/20. Developed itchy red rash on back, some around neck and antecub fossa. Full ROS performed and neg except as noted above. - Medical History Past Medical History (Chronic Problems): Chronic Problems (Last Updated 12/27/18 @ 07:53 by Ruben Sandoval DO) Obstructive sleep apnea (Chronic) Hyperlipidemia (Chronic) Hypothyroidism (Chronic) Psoas tendinitis (Chronic) Morbid obesity (Chronic) Headache (Chronic) Osteoarthritis (Chronic) History of left psoas muscle injury (Chronic) Chronic back pain (Chronic) Muscle spasm (Chronic) Hypertension (Chronic) Muscle tear (Chronic) Allergies/Adverse Reactions: Allergies No Known Allergies Allergy (Verified 02/08/19 18:47) Home Medications: Ambulatory Orders Medication Instructions Recorded Oxycodone HCl 5 mg PO Q6H PRN PRN 02/08/19 Baclofen [Lioresal] 10 mg PO TIDCM PRN #90 tab 02/10/19 Lisinopril [Zestril] 20 mg PO DAILY 03/17/19 - Social History SMOKING STATUS:: Never smoker Vital Signs Temp Pulse Resp BP Pulse Ox 99.2 F H 86 18 153/73 H 96 03/19/19 16:00 03/19/19 16:00 03/19/19 16:00 03/19/19 16:00 03/19/19 16:00 Oxygen Delivery Method Room Air Weight: 161.025 kg Body Mass Index (BMI) 53.9 - Other Studies Radiology: [] reviewed Other Studies: [] Route of nutrition/ use of supplements: [] Nutritional Intake: [] IV Site: [] Villagran Catheter: [] - Physical Exam General: Alert, Oriented x3, Cooperative, No apparent distress HEENT: Atraumatic, PERRLA, EOMI Neck: Supple, No Nodes Lungs: Clear to auscultation, Normal air movement Cardiovascular: Regular rate, Regular Rhythm, No murmurs Abdomen: Soft, Non Tender, Non-Distended Extremities: Edema Skin: Rash Present - blanching pruritic erythema diffuse over back and around neck folds and bilateral antecubs. IV Site: PICC, without redness Musculoskeletal: No Tenderness to Palpation of Joints or Extremities Neurological: Cranial nerves II-XII grossly intact - Assessment/Plan Antibiotics: [] Assessment/Plan: [] Active and Suspected Problems (Last Updated 12/27/18 @ 07:53 by Ruben Sandoval DO) Abscess in epidural space of lumbar spine (Acute) Lumbar discitis (Acute) Psoas abscess (Acute) MSSA bacteremia with epidural abscess, s/p I&D at [facility] 03/08/19. Now on oxacillin, new rash. Given distribution of rash in skin folds and back, it may be more of a sweat/heat induced dermatitis. If it does not improve with keeping skin cool/dry and switching back to oxacillin from the [facility], can change to cefazolin which he tolerated with no issue for long course in the past. Will follow, thank you.
[2019-03-20 16:00] VITALS: BP 121/68; PULSE 77; RESP 18; TEMP 36.8; O2SAT 97
--- NOTE | 2019-03-20 16:38 | CASEMGMT ---
Social Work Spoke with pt and about insurance coverage and stop date for IV ATBs. 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 Pt has 4 steps to enter his own home and currently cannot do steps. Spoke with about getting a ramp built - states they do not have the money. Inquired about Medicaid - stated she is over income to qualify, but didn't officially apply. Provided pt and with Medicaid application to fill out and submit to make sure they are not approved. Will continue to follow for discharge planning. TREE FlorentinoW
[2019-03-20 17:11] LABS: Bedside Glucose 130 mg/dL (70-110)
[2019-03-20] MEDS: 0.9% NaCl IVPB Med Flush (250 mL) 15 ML IV (21:36)
[2019-03-20 22:01] LABS: Bedside Glucose 160 mg/dL (70-110)
[2019-03-21] MEDS: 0.9% NaCl PICC Flush IV ×5 (01:59→22:18)
[2019-03-21] MEDS: traMADol 50 MG Tablet PO ×2 (02:13→10:38)
[2019-03-21] MEDS: Lidocaine 5% Patch 2 PATCH TOPICAL (05:10)
[2019-03-21] MEDS: Lisinopril 20 MG Tablet PO (05:10)
[2019-03-21] MEDS: Bisoprolol Fumarate 5 MG Tablet PO (05:11)
[2019-03-21] MEDS: Levothyroxine 88 MCG Tablet PO (05:11)
[2019-03-21] MEDS: Enoxaparin 40 MG/0.4 ML Syringe SC (05:11)
[2019-03-21] MEDS: hydroCHLOROthiazide 6.25mg TAB 6.25 MG PO (05:11)
[2019-03-21] MEDS: Acetaminophen 500 MG Tablet 1000 MG PO ×3 (05:11→22:12)
[2019-03-21 06:41] LABS: Bedside Glucose 145 mg/dL (70-110)
[2019-03-21] MEDS: Nystatin Powder 15gm Bottle 1 APPLIC TOPICAL ×2 (07:02→22:18)
[2019-03-21] MEDS: Baclofen 10 MG Tablet PO ×3 (08:35→17:07)
[2019-03-21] MEDS: metFORMIN HCl 500 MG Tablet PO ×2 (08:35→17:07)
[2019-03-21] MEDS: oxyCODONE 5 MG Tablet 10 MG PO ×3 (08:38→22:11)
--- NOTE | 2019-03-21 10:10 | CASEMGMT ---
Insurance: Clinical update sent through [facility] reviewlink. Auth # [id number].
[2019-03-21] MEDS: Hydrocortisone 2.5% Crm 1 APPLIC TOPICAL (10:39)
--- NOTE | 2019-03-21 13:00 | PCA ---
Patient refused lunch from the cafeteria but, was going to eat in room snacks from now til dinner
--- NOTE | 2019-03-21 15:04 | PN.ID_ITS ---
Patient Problems: Active and Suspected Problems (Last Updated 12/27/18 @ 07:53 by Ruben Sandoval DO) Abscess in epidural space of lumbar spine (Acute) Lumbar discitis (Acute) Psoas abscess (Acute) Subjective: Rash better, some cramps in LLE, no fever - Physical Exam General: Alert, Cooperative, No apparent distress Lungs: Clear to auscultation, Normal air movement Cardiovascular: Regular rate, Regular Rhythm Abdomen: Soft, Non Tender, Non-Distended Skin: Rash Present - fading on neck, back Vital Signs Temp Pulse Resp BP Pulse Ox 98.3 F 77 18 121/68 H 97 03/20/19 16:00 03/20/19 16:00 03/20/19 16:00 03/20/19 16:00 03/20/19 16:00 Oxygen Delivery Method Room Air Weight: 161.025 kg Body Mass Index (BMI) 53.9 Intake and Output for Last 24 Hours 03/19/19 03/20/19 03/21/19 23:59 23:59 23:59 Intake Total 2686 / 2686 1960 / 1960 125 / 125 Output Total 320 / 320 420 / 420 Balance 2686 / 2686 1640 / 1640 -295 / -295 POC Glucose 03/21/19 03/20/19 03/20/19 06:35 21:52 17:06 POC Glucose 145 H 160 H 130 H Medical Necessity - Tobacco Use Smoking Status: Never smoker Tobacco Use: Non-smoker Route of nutrition/ use of supplements: [] Nutritional Intake: [] IV Site: [] Villagran Catheter: [] - Assessment/Plan Antibiotics: [] Assessment/Plan: [] Active and Suspected Problems (Last Updated 12/27/18 @ 07:53 by Ruben Sandoval DO) Abscess in epidural space of lumbar spine (Acute) Lumbar discitis (Acute) Psoas abscess (Acute) MSSA bacteremia with epidural abscess, s/p I&D at [facility] 03/08/19. Now on oxacillin, new rash. Given distribution of rash in skin folds and back, it may be more of a sweat/heat induced dermatitis. Rash improving, cont oxacillin. Will follow
--- NOTE | 2019-03-21 15:05 | CASEMGMT ---
Insurance: NExt update due 03/24/19. Auth # [id number].
--- NOTE | 2019-03-21 15:17 | CHAPLAIN ---
Type of Pastoral Visit _x__ Initial Visit ___ Follow-up Visit ___ On-call Visit ___ General Patient Visit ___ Spiritual Assessment ___ Family Conference ___ Bereavement ___ Rapid Response ___ Code Blue ___ Other (describe below) Pastoral Care Referral From _x__ Patient ___ Family ___ Nurse ___ Physician _x__ Director Of Rehabilitative Services ___ Appliance Painter And Refinisher ___ Other (describe below) Sacrament/Intervention _x__ Active listening ___ Anointing ___ Latter-Day ___ Bereavement ___ Communion _x__ Irish exploration ___ ___ Life review _x__ Prayer ___ Reconciliation ___ Sacrament of Sick _x__ Supportive presence ___ Wedding ___ Other (describe below) Pastoral Comments repeat patient; updates given; pt seeking meaning to his suffering and long health issues
[2019-03-21 16:00] VITALS: BP 154/76; PULSE 74; RESP 20; TEMP 36.6; O2SAT 94
[2019-03-21] MEDS: 0.9% NaCl IVPB Med Flush (250 mL) 15 ML IV ×2 (17:06→22:13)
[2019-03-21 17:30] LABS: Bedside Glucose 138 mg/dL (70-110)
[2019-03-21 21:21] LABS: Bedside Glucose 106 mg/dL (70-110)
[2019-03-22] MEDS: oxyCODONE 5 MG Tablet 10 MG PO ×3 (05:05→22:27)
[2019-03-22] MEDS: Acetaminophen 500 MG Tablet 1000 MG PO ×3 (05:06→22:28)
[2019-03-22] MEDS: hydroCHLOROthiazide 6.25mg TAB 6.25 MG PO (05:07)
[2019-03-22] MEDS: Lidocaine 5% Patch 2 PATCH TOPICAL (05:07)
[2019-03-22] MEDS: Levothyroxine 88 MCG Tablet PO (05:07)
[2019-03-22] MEDS: Bisoprolol Fumarate 5 MG Tablet PO (05:08)
[2019-03-22] MEDS: Lisinopril 20 MG Tablet PO (05:08)
[2019-03-22] MEDS: Enoxaparin 40 MG/0.4 ML Syringe SC (05:11)
[2019-03-22] MEDS: Nystatin Powder 15gm Bottle 1 APPLIC TOPICAL ×2 (05:13→22:30)
[2019-03-22 05:16] VITALS: BP 153/68; PULSE 83
[2019-03-22 06:46] LABS: Bedside Glucose 136 mg/dL (70-110)
[2019-03-22] MEDS: Baclofen 10 MG Tablet PO ×3 (09:03→17:07)
[2019-03-22] MEDS: metFORMIN HCl 500 MG Tablet PO ×2 (09:03→17:07)
--- NOTE | 2019-03-22 10:46 | CASEMGMT ---
Addendum entered by Andria Dobbins 03/22/19 10:58: Correction: IV ATB stop date 05/09. Original Note: Social Work IDT met with patient and for care plan meeting. Discussed patient's progress in therapy. PT is set up assist for upper body bathing and grooming,but dependent for all lower body care r/t pain in spine. Pt is max x2 assist for bed mobility and sitting to standing. Will continue to work on improvement with pt. Insurance update is 03/24 and continued stay is not guaranteed and only requires a 24 hour notice of LCD. Encouraged to submit Medicaid application for pt to determine eligibility for resources. Pt continues to receive IV ATB daily until 04/26. Will continue to follow for discharge planning and any emotional support needed. TREE FlorentinoW
[2019-03-22 11:06] LABS: Bedside Glucose 102 mg/dL (70-110)
[2019-03-22] MEDS: 0.9% NaCl PICC Flush IV ×3 (13:37→22:27)
--- NOTE | 2019-03-22 13:47 | PCM.PN.RX ---
<DontrellKatarina M - Last Filed: 03/22/19 14:28> Progress Note - Pharmacy Subjective: TCU Admission Objective: Allergies No Known Allergies Allergy (Verified 02/08/19 18:47) Current Medications Generic Name Dose Route Start Last Admin Trade Name Freq PRN Reason Stop Dose Admin Acetaminophen 1,000 mg 03/17/19 22:00 03/22/19 13:42 Tylenol PO 1,000 mg Q8 ZARI Administration Albuterol/Ipratropium 3 ml 03/17/19 20:14 Duoneb INHALATION Q4H.RT PRN SHORTNESS OF BREATH Baclofen 10 mg 03/18/19 07:45 03/22/19 11:41 Lioresal PO 10 mg TIDCM ZARI Administration Bisacodyl 10 mg 03/17/19 21:06 Dulcolax PO DAILY PRN Constipation Bisoprolol Fumarate 5 mg 03/18/19 06:00 03/22/19 05:08 Zebeta PO 5 mg DAILY ZARI Administration Enoxaparin Sodium 40 mg 03/18/19 06:00 03/22/19 05:11 Lovenox SC 40 mg DAILY@0600 ZARI Administration Heparin Sodium (Beef Lung) 50 units 03/17/19 21:20 IV UD PRN HEPARIN FLUSH Hydrochlorothiazide 6.25 mg 03/18/19 06:00 03/22/19 05:07 PO 6.25 mg DAILY ZARI Administration Hydrocortisone 1 applic 03/19/19 14:13 03/21/19 10:39 Hytone TOPICAL 1 applicatio BID PRN PRN Administration TOPICAL IRRITATIONS Protocol Oxacillin Sodium 2 gm/ Sodium 100 mls @ 100 mls/hr 03/17/19 22:00 03/22/19 13:36 Chloride IV 05/09/19 23:59 100 mls/hr Q4 ZARI Administration Sodium Chloride 250 mls @ 15 mls/hr 03/17/19 21:20 03/21/19 22:13 IV 15 mls/hr .[id number] PRN Administration SALINE FLUSH Levothyroxine Sodium 88 mcg 03/18/19 06:00 03/22/19 05:07 Synthroid PO 88 mcg DAILY@0600 ZARI Administration Lidocaine 2 patch 03/18/19 06:00 03/22/19 05:07 Lidoderm Patch TOPICAL 2 patch DAILY ZARI Administration Protocol Lisinopril 20 mg 03/18/19 06:00 03/22/19 05:08 Zestril PO 20 mg DAILY ZARI Administration Metformin HCl 500 mg 03/18/19 08:00 03/22/19 09:03 Glucophage PO 500 mg BIDCM ZARI Administration Nystatin 1 applic 03/18/19 22:00 03/22/19 05:13 Mycostatin Powder TOPICAL 1 applicatio 0600,2200 ZARI Administration Protocol Oxycodone HCl 10 mg 03/17/19 21:07 03/22/19 05:05 Oxyir PO 10 mg Q4H PRN Administration SEVERE PAIN (6-10/10) Polyethylene Glycol 17 gm 03/18/19 06:00 03/22/19 05:07 Miralax PO Not Given DAILY [facility] Senna/Docusate Sodium 2 tablet 03/18/19 06:00 03/22/19 05:07 Senokot-S, Trang-Colace PO Not Given BID [facility] Sodium Chloride 10 - 40 ml 03/17/19 21:20 03/22/19 13:37 IV 20 ml UD PRN Administration PICC FLUSH Tramadol HCl 50 mg 03/17/19 21:06 03/21/19 10:38 Ultram PO 50 mg Q6H PRN PRN Administration MODERATE PAIN (4-5/10) Tuberculin PPD 5 tu 03/25/19 10:00 Tubersol, Aplisol, Ppd ID 03/25/19 10:01 X1 ONE Problem List (Last Updated 12/27/18 @ 07:53 by Ruben Sandoval DO) Abscess in epidural space of lumbar spine (Acute) Lumbar discitis (Acute) Psoas abscess (Acute) Obstructive sleep apnea (Chronic) Hyperlipidemia (Chronic) Hypothyroidism (Chronic) Psoas tendinitis (Chronic) Morbid obesity (Chronic) Headache (Chronic) Osteoarthritis (Chronic) Vital Signs Temp Pulse Resp BP Pulse Ox 97.8 F 83 20 H 153/68 H 94 03/21/19 16:00 03/22/19 05:16 03/21/19 16:00 03/22/19 05:16 03/21/19 16:00 Oxygen Delivery Method Room Air Weight: 161.025 kg Body Mass Index (BMI) 53.9 Sodium 138 mmol/L (136-145) 03/18/19 05:15 Potassium 3.9 mmol/L (3.5-5.1) 03/18/19 05:15 Chloride 100 mmol/L (98-107) 03/18/19 05:15 Carbon Dioxide 29.0 mmol/L (21.0-32.0) 03/18/19 05:15 9 (5-15) 03/18/19 05:15 BUN 15 mg/dL (7-18) 03/18/19 05:15 0.89 mg/dL (0.70-1.30) 03/18/19 05:15 Est GFR (MDRD) Af Amer 113 mL/min (>60) 03/18/19 05:15 Est GFR (MDRD) Non-Af 93 mL/min (>60) 03/18/19 05:15 16.9 RATIO (10-20) 03/18/19 05:15 Glucose 139 mg/dL (74-106) H 03/18/19 05:15 Assessment/Plan: 1. MSSA Bacteremia/ Lumbar epidural abscess/ lumbar discitis: Oxacillin 2g IV Q4h through 05/09/19. Please continue to monitor for any new S/S of infection, ID service consulted and is following patient. 2. Pain: Acetaminophen 1000mg PO Q8h, Oxycodone 10mg PO Q4h PRN severe pain (6-10/10), Tramadol 50mg PO Q6h PRN moderate pain (4-5/10). Please continue to monitor PRN usage and for S/S of increased/decreased pain. 3. Hypertension: Bisoprolol 5mg PO daily, Hydrochlorothiazide 6.25mg PO daily, Lisinopril 20mg PO daily. Please continue to monitor. 4. Shortness of breath: Duoneb 3mL INH Q4h PRN shortness of breath. Please continue to monitor PRN usage for increased or decreased symptoms. 5. Type II Diabetes Mellitus: Metformin 500mg PO BID. Please continue to monitor blood glucose levels, S/S of hyper or hypoglycemia, and renal function. 6. Hypothyroidism: Levothyroxine 88mcg PO daily. Last TSH level done 02/2019, please continue to monitor. 7. Lower back pain: Lidocaine Patch 2 patches topically daily. Please continue to monitor for S/S of increased/decreased pain. 8. Back spasms: Baclofen 10mg PO TIDCM. Please continue to monitor for S/S of increased or decreased back pain. 9. DVT Prophylaxis: Lovenox 40mg SC daily. Please continue to monitor. Psychotropic Medications: None Unnecessary Medications: None *Bowel Regimen: Miralax 17g PO Daily, Senna/docusate 2 tablet PO BID, Bisacodyl 10mg PO Daily PRN. Per MAR documentation, the patient has been refusing scheduled dosing. Please consider changing scheduled medications to PRN if documented bowel movements are adequate. Date of Note:: 03/22/19 - Provider Comments Provider responsibility: Provider responsible to enter orders to implement recommendations <Enrique Otero Chi - Last Filed: 03/22/19 17:40> Progress Note - Pharmacy Subjective: [] Objective: Allergies No Known Allergies Allergy (Verified 02/08/19 18:47) Current Medications Generic Name Dose Route Start Last Admin Trade Name Freq PRN Reason Stop Dose Admin Acetaminophen 1,000 mg 03/17/19 22:00 03/22/19 13:42 Tylenol PO 1,000 mg Q8 ZARI Administration Albuterol/Ipratropium 3 ml 03/17/19 20:14 Duoneb INHALATION Q4H.RT PRN SHORTNESS OF BREATH Baclofen 10 mg 03/18/19 07:45 03/22/19 17:07 Lioresal PO 10 mg TIDCM ZARI Administration Bisacodyl 10 mg 03/17/19 21:06 Dulcolax PO DAILY PRN Constipation Bisoprolol Fumarate 5 mg 03/18/19 06:00 03/22/19 05:08 Zebeta PO 5 mg DAILY ZARI Administration Enoxaparin Sodium 40 mg 03/18/19 06:00 03/22/19 05:11 Lovenox SC 40 mg DAILY@0600 ZARI Administration Heparin Sodium (Beef Lung) 50 units 03/17/19 21:20 IV UD PRN HEPARIN FLUSH Hydrochlorothiazide 6.25 mg 03/18/19 06:00 03/22/19 05:07 PO 6.25 mg DAILY ZARI Administration Hydrocortisone 1 applic 03/19/19 14:13 03/21/19 10:39 Hytone TOPICAL 1 applicatio BID PRN PRN Administration TOPICAL IRRITATIONS Protocol Oxacillin Sodium 2 gm/ Sodium 100 mls @ 100 mls/hr 03/17/19 22:00 03/22/19 17:08 Chloride IV 05/09/19 23:59 100 mls/hr Q4 ZARI Administration Sodium Chloride 250 mls @ 15 mls/hr 03/17/19 21:20 03/21/19 22:13 IV 15 mls/hr .[id number] PRN Administration SALINE FLUSH Levothyroxine Sodium 88 mcg 03/18/19 06:00 03/22/19 05:07 Synthroid PO 88 mcg DAILY@0600 ZARI Administration Lidocaine 2 patch 03/18/19 06:00 03/22/19 05:07 Lidoderm Patch TOPICAL 2 patch DAILY ZARI Administration Protocol Lisinopril 20 mg 03/18/19 06:00 03/22/19 05:08 Zestril PO 20 mg DAILY ZARI Administration Metformin HCl 500 mg 03/18/19 08:00 03/22/19 17:07 Glucophage PO 500 mg BIDCM ZARI Administration Nystatin 1 applic 03/18/19 22:00 03/22/19 05:13 Mycostatin Powder TOPICAL 1 applicatio 0600,2200 [facility] Administration Protocol Oxycodone HCl 10 mg 03/17/19 21:07 03/22/19 14:28 Oxyir PO 10 mg Q4H PRN Administration SEVERE PAIN (6-10/10) Polyethylene Glycol 17 gm 03/18/19 06:00 03/22/19 05:07 Miralax PO Not Given DAILY ZARI Senna/Docusate Sodium 2 tablet 03/18/19 06:00 03/22/19 17:08 Senokot-S, Trang-Colace PO Not Given BID ZARI Sodium Chloride 10 - 40 ml 03/17/19 21:20 03/22/19 17:08 IV 20 ml UD PRN Administration PICC FLUSH Tramadol HCl 50 mg 03/17/19 21:06 03/21/19 10:38 Ultram PO 50 mg Q6H PRN PRN Administration MODERATE PAIN (4-5/10) Tuberculin PPD 5 tu 03/25/19 10:00 Tubersol, Aplisol, Ppd ID 03/25/19 10:01 X1 ONE Problem List (Last Updated 12/27/18 @ 07:53 by Ruben Sandoval DO) Abscess in epidural space of lumbar spine (Acute) Lumbar discitis (Acute) Psoas abscess (Acute) Obstructive sleep apnea (Chronic) Hyperlipidemia (Chronic) Hypothyroidism (Chronic) Psoas tendinitis (Chronic) Morbid obesity (Chronic) Headache (Chronic) Osteoarthritis (Chronic) Vital Signs Temp Pulse Resp BP Pulse Ox 97.7 F L 73 18 142/75 H 92 03/22/19 16:00 03/22/19 16:00 03/22/19 16:00 03/22/19 16:00 03/22/19 16:00 Oxygen Delivery Method Room Air Weight: 161.025 kg Body Mass Index (BMI) 53.9 Sodium 138 mmol/L (136-145) 03/18/19 05:15 Potassium 3.9 mmol/L (3.5-5.1) 03/18/19 05:15 Chloride 100 mmol/L (98-107) 03/18/19 05:15 Carbon Dioxide 29.0 mmol/L (21.0-32.0) 03/18/19 05:15 9 (5-15) 03/18/19 05:15 BUN 15 mg/dL (7-18) 03/18/19 05:15 0.89 mg/dL (0.70-1.30) 03/18/19 05:15 Est GFR (MDRD) Af Amer 113 mL/min (>60) 03/18/19 05:15 Est GFR (MDRD) Non-Af 93 mL/min (>60) 03/18/19 05:15 16.9 RATIO (10-20) 03/18/19 05:15 Glucose 139 mg/dL (74-106) H 03/18/19 05:15 Assessment/Plan: Psychotropic Medications: Unnecessary Medications: Bowel Regimen: - Provider Comments Provider responsibility: Provider responsible to enter orders to implement recommendations Provider Comments to Recommendations by Pharmacy: Agree
--- NOTE | 2019-03-22 14:59 | CHAPLAIN ---
Type of Pastoral Visit ___ Initial Visit _x__ Follow-up Visit ___ On-call Visit ___ General Patient Visit ___ Spiritual Assessment ___ Family Conference ___ Bereavement ___ Rapid Response ___ Code Blue ___ Other (describe below) Pastoral Care Referral From _x__ Patient ___ Family ___ Nurse ___ Physician ___ Gluing Machine Adjuster ___ Sebd Teacher ___ Other (describe below) Sacrament/Intervention _x__ Active listening ___ Anointing ___ Sikhism ___ Bereavement ___ Communion _x__ Irish exploration ___ ___ Life review ___ Prayer ___ Reconciliation ___ Sacrament of Sick _x__ Supportive presence ___ Wedding ___ Other (describe below) Pastoral Comments returned today to see patient and give him the scripture references he had asked about
[2019-03-22 16:00] VITALS: BP 142/75; PULSE 73; RESP 18; TEMP 36.5; O2SAT 92
[2019-03-22 17:11] LABS: Bedside Glucose 112 mg/dL (70-110)
[2019-03-22 21:06] LABS: Bedside Glucose 127 mg/dL (70-110)
[2019-03-22] MEDS: 0.9% NaCl IVPB Med Flush (250 mL) 15 ML IV (22:18)
[2019-03-23] MEDS: oxyCODONE 5 MG Tablet 10 MG PO ×3 (03:47→12:00)
[2019-03-23] MEDS: Lisinopril 20 MG Tablet PO (05:32)
[2019-03-23] MEDS: Acetaminophen 500 MG Tablet 1000 MG PO ×3 (05:32→22:47)
[2019-03-23] MEDS: Bisoprolol Fumarate 5 MG Tablet PO (05:33)
[2019-03-23] MEDS: Enoxaparin 40 MG/0.4 ML Syringe SC (05:33)
[2019-03-23] MEDS: Levothyroxine 88 MCG Tablet PO (05:33)
[2019-03-23] MEDS: hydroCHLOROthiazide 6.25mg TAB 6.25 MG PO (05:33)
[2019-03-23] MEDS: Nystatin Powder 15gm Bottle 1 APPLIC TOPICAL ×2 (05:35→21:38)
[2019-03-23 06:51] LABS: Bedside Glucose 126 mg/dL (70-110)
[2019-03-23] MEDS: metFORMIN HCl 500 MG Tablet PO ×2 (08:49→18:29)
[2019-03-23] MEDS: Lidocaine 5% Patch 2 PATCH TOPICAL (08:49)
[2019-03-23] MEDS: Baclofen 10 MG Tablet PO ×3 (08:49→18:30)
[2019-03-23] MEDS: 0.9% NaCl PICC Flush IV ×4 (10:30→21:37)
--- NOTE | 2019-03-23 10:39 | PN.ID_ITS ---
Patient Problems: Active and Suspected Problems (Last Updated 12/27/18 @ 07:53 by Ruben Sandoval DO) Abscess in epidural space of lumbar spine (Acute) Lumbar discitis (Acute) Psoas abscess (Acute) Subjective: Some soreness in L ribs and R posterior thigh. Rash improved, no fever. - Physical Exam General: Alert, Cooperative, No apparent distress Lungs: Clear to auscultation, Normal air movement Cardiovascular: Regular rate, Regular Rhythm Abdomen: Soft, Non Tender, Non-Distended Skin: Rash Present - Fading on back. Some new rash on L abd. Vital Signs Temp Pulse Resp BP Pulse Ox 97.7 F L 73 18 142/75 H 92 03/22/19 16:00 03/22/19 16:00 03/22/19 16:00 03/22/19 16:00 03/22/19 16:00 Oxygen Delivery Method Room Air Weight: 161.025 kg Body Mass Index (BMI) 53.9 Intake and Output for Last 24 Hours 03/21/19 03/22/19 03/23/19 23:59 23:59 23:59 Intake Total 369 / 369 1100 / 1100 240 / 240 Output Total 1220 / 1220 400 / 400 Balance -851 / -851 700 / 700 240 / 240 POC Glucose 03/23/19 03/22/19 03/22/19 06:43 20:59 17:03 POC Glucose 126 H 127 H 112 H 03/22/19 10:48 POC Glucose 102 Medical Necessity - Tobacco Use Smoking Status: Never smoker Tobacco Use: Non-smoker Route of nutrition/ use of supplements: [] Nutritional Intake: [] IV Site: [] Vilalgran Catheter: [] - Assessment/Plan Antibiotics: [] Assessment/Plan: [] Active and Suspected Problems (Last Updated 12/27/18 @ 07:53 by Ruben Sanodval DO) Abscess in epidural space of lumbar spine (Acute) Lumbar discitis (Acute) Psoas abscess (Acute) MSSA bacteremia with epidural abscess, s/p I&D at [facility] 03/08/19. Rash improving, cont oxacillin. Will follow
[2019-03-23 11:06] LABS: Bedside Glucose 111 mg/dL (70-110)
[2019-03-23] MEDS: oxyCODONE 5 MG Tablet 20 MG PO (12:18)
--- NOTE | 2019-03-23 12:46 | NURSING ---
pt requesting stronger pain dosing for pain management during therapy sessions, having extreme discomfort with standing or any movement out of bed. Dr Otero updated, new order to administer 20mg Oxyir daily before PT session. Therapy office aware & know to notify us daily of times for therapy to be able to manage pain for pt.
[2019-03-23] MEDS: 0.9% NaCl IVPB Med Flush (250 mL) 15 ML IV (14:56)
[2019-03-23 16:00] VITALS: BP 142/61; PULSE 71; RESP 18; TEMP 37.2; O2SAT 93
[2019-03-23 17:50] LABS: Bedside Glucose 99 mg/dL (70-110)
[2019-03-23 20:28] VITALS: PULSE 75
--- NOTE | 2019-03-23 20:38 | NURSING ---
Addendum entered by Claudia Guevara 03/23/19 20:49: Dr. Otero updated. New order for Doxepin 25mg QHS. Original Note: This nurse into pts assessment. Pt asked this nurse with assistance to clean off bed side table. Upon doing so pt had a small clear bottle with numerous purple pills in it. This nurse asked pt what it was. Pt stated they are sleeping pills and he has taken one the last two nights because has been unable to sleep. This nurse explained to pt that pt cannot be taking medications without doctors approval. Pt contacted his and he said they were some generic sleeping aid that was 25mg each. This nurse explained to pt that Dr. Otero would be updated. Pt thanked this nurse numerous times.
[2019-03-23 21:41] LABS: Bedside Glucose 130 mg/dL (70-110)
[2019-03-23] MEDS: Doxepin Hcl 25 MG Capsule PO (22:47)
[2019-03-24] MEDS: 0.9% NaCl PICC Flush IV ×6 (02:50→23:33)
[2019-03-24] MEDS: Levothyroxine 88 MCG Tablet PO (06:14)
[2019-03-24] MEDS: Acetaminophen 500 MG Tablet 1000 MG PO ×3 (06:14→21:46)
[2019-03-24] MEDS: Lidocaine 5% Patch 2 PATCH TOPICAL (06:14)
[2019-03-24] MEDS: Enoxaparin 40 MG/0.4 ML Syringe SC (06:14)
[2019-03-24] MEDS: Bisoprolol Fumarate 5 MG Tablet PO (06:14)
[2019-03-24] MEDS: Lisinopril 20 MG Tablet PO (06:15)
[2019-03-24] MEDS: hydroCHLOROthiazide 6.25mg TAB 6.25 MG PO (06:15)
[2019-03-24] MEDS: Nystatin Powder 15gm Bottle 1 APPLIC TOPICAL ×2 (06:22→21:47)
[2019-03-24 06:56] LABS: Bedside Glucose 115 mg/dL (70-110)
[2019-03-24] MEDS: oxyCODONE 5 MG Tablet 10 MG PO (07:52)
[2019-03-24] MEDS: metFORMIN HCl 500 MG Tablet PO ×2 (07:52→17:18)
[2019-03-24] MEDS: Baclofen 10 MG Tablet PO ×3 (07:52→17:18)
[2019-03-24] MEDS: 0.9% NaCl IVPB Med Flush (250 mL) 15 ML IV (11:08)
[2019-03-24 11:25] LABS: Bedside Glucose 121 mg/dL (70-110)
[2019-03-24] MEDS: oxyCODONE 5 MG Tablet 20 MG PO (11:35)
--- NOTE | 2019-03-24 11:58 | CASEMGMT ---
Insurance: Clinical update sent through [facility] reviewlink. auth #[id number]. Next update due 03/29/19. YUSEF Ayers aware.
[2019-03-24 15:34] VITALS: BP 118/63; PULSE 75; RESP 18; TEMP 36.8; O2SAT 94
[2019-03-24 17:15] LABS: Bedside Glucose 98 mg/dL (70-110)
[2019-03-24 21:35] LABS: Bedside Glucose 124 mg/dL (70-110)
[2019-03-24] MEDS: Doxepin Hcl 25 MG Capsule PO (23:36)
[2019-03-25] MEDS: oxyCODONE 5 MG Tablet 10 MG PO ×2 (00:52→22:49)
[2019-03-25] MEDS: 0.9% NaCl PICC Flush IV ×4 (02:11→12:11)
[2019-03-25 06:27] LABS: Absolute Lymphocyte Count 1.08 X10^3/uL (0.83-4.51); Absolute Neutrophil Count 4.7 X10^3/uL (2.0-7.7); Basophil# 0.02 X10^3/uL; Basophil% 0.3 % (0-1); Hematocrit 38.1 % (40-54); Hemoglobin 12.1 g/dL (13.0-16.5); Lymphocyte # 1.08 X10^3/ul (4.0); Lymphocyte % 16.2 % (19-41); Mean Corp Hgb Conc 31.8 g/dL (32-36); Mean Corpuscular Hgb 30.5 pg (27.0-32.0); Mean Platelet Vol. 9.6 fl (6.2-12.0); Monocyte# 0.66 X10^3/uL; Monocyte% 9.9 % (0-10); NRBC Flagged by Analyzer 0 % (0-5); Neutrophil # 4.68 X10^3/uL (2.7-7.7); Platelet Count 210 K/mm3 (150-450); RBC Distribution Width CV 15.4 % (11.6-14.6); RBC Distribution Width SD 53.4 fl (35.1-43.9); Red Blood Count 3.97 M/mm3 (4.6-6.2); White Blood Count 6.7 K/mm3 (4.4-11.0)
[2019-03-25 06:30] LABS: Bedside Glucose 186 mg/dL (70-110)
[2019-03-25] MEDS: Nystatin Powder 15gm Bottle 1 APPLIC TOPICAL ×2 (06:33→21:38)
[2019-03-25] MEDS: Enoxaparin 40 MG/0.4 ML Syringe SC (06:33)
[2019-03-25] MEDS: Acetaminophen 500 MG Tablet 1000 MG PO ×3 (06:33→22:48)
[2019-03-25] MEDS: hydroCHLOROthiazide 6.25mg TAB 6.25 MG PO (06:34)
[2019-03-25] MEDS: Senna/Docusate Sodium 1 Tablet 2 TABLET PO (06:34)
[2019-03-25] MEDS: Levothyroxine 88 MCG Tablet PO (06:34)
[2019-03-25] MEDS: Bisoprolol Fumarate 5 MG Tablet PO (06:34)
[2019-03-25] MEDS: Lisinopril 20 MG Tablet PO (06:34)
[2019-03-25] MEDS: Lidocaine 5% Patch 2 PATCH TOPICAL (06:35)
[2019-03-25 06:39] LABS: Anion Gap 5 (5-15); BUN 14 mg/dL (7-18); BUN/Creat Ratio 12.7 RATIO (10-20); Calcium,Total 8.8 mg/dL (8.5-10.1); Chloride 102 mmol/L (98-107); EST Glomerular Filtration Rate 73 mL/min (>60); Est Glom Filt Rate - Afr Amer 88 mL/min (>60); Estimated Creatinine Clearance 70.82 ml/min; Glucose 181 mg/dL (74-106); Potassium 3.9 mmol/L (3.5-5.1); Sodium Level 139 mmol/L (136-145)
[2019-03-25 06:40] VITALS: BP 130/73; PULSE 75
[2019-03-25] MEDS: 0.9% NaCl IVPB Med Flush (250 mL) 15 ML IV (10:37)
[2019-03-25] MEDS: Baclofen 10 MG Tablet PO ×3 (10:38→17:28)
[2019-03-25] MEDS: metFORMIN HCl 500 MG Tablet PO ×2 (10:38→17:29)
[2019-03-25 11:40] LABS: Bedside Glucose 158 mg/dL (70-110)
[2019-03-25 14:14] VITALS: BP 138/71; PULSE 72; RESP 18; TEMP 36.9; O2SAT 95
[2019-03-25 16:51] LABS: Bedside Glucose 120 mg/dL (70-110)
[2019-03-25 21:06] LABS: Bedside Glucose 115 mg/dL (70-110)
[2019-03-25] MEDS: Doxepin Hcl 25 MG Capsule PO (22:48)
[2019-03-26] MEDS: oxyCODONE 5 MG Tablet 10 MG PO ×2 (05:09→22:53)
[2019-03-26] MEDS: Levothyroxine 88 MCG Tablet PO (05:18)
[2019-03-26] MEDS: Lisinopril 20 MG Tablet PO (05:18)
[2019-03-26] MEDS: hydroCHLOROthiazide 6.25mg TAB 6.25 MG PO (05:19)
[2019-03-26] MEDS: Acetaminophen 500 MG Tablet 1000 MG PO ×3 (05:19→22:53)
[2019-03-26] MEDS: Bisoprolol Fumarate 5 MG Tablet PO (05:20)
[2019-03-26] MEDS: Enoxaparin 40 MG/0.4 ML Syringe SC (05:20)
[2019-03-26] MEDS: Lidocaine 5% Patch 2 PATCH TOPICAL (05:20)
[2019-03-26] MEDS: Nystatin Powder 15gm Bottle 1 APPLIC TOPICAL ×2 (05:27→21:30)
[2019-03-26 06:31] LABS: Bedside Glucose 160 mg/dL (70-110)
[2019-03-26] MEDS: metFORMIN HCl 500 MG Tablet PO ×2 (10:46→17:10)
[2019-03-26] MEDS: Baclofen 10 MG Tablet PO ×3 (10:46→17:10)
[2019-03-26] MEDS: 0.9% NaCl PICC Flush IV ×3 (10:49→21:15)
[2019-03-26 11:57] LABS: Bedside Glucose 121 mg/dL (70-110)
[2019-03-26 13:18] VITALS: BP 149/75; PULSE 70; RESP 18; TEMP 36.6; O2SAT 95
[2019-03-26 16:56] LABS: Bedside Glucose 119 mg/dL (70-110)
[2019-03-26] MEDS: 0.9% NaCl IVPB Med Flush (250 mL) 15 ML IV (21:16)
[2019-03-26 21:26] LABS: Bedside Glucose 134 mg/dL (70-110)
[2019-03-26] MEDS: Doxepin Hcl 25 MG Capsule PO (22:53)
[2019-03-27] MEDS: 0.9% NaCl PICC Flush IV ×5 (01:42→21:57)
[2019-03-27] MEDS: Bisoprolol Fumarate 5 MG Tablet PO (05:57)
[2019-03-27] MEDS: Lidocaine 5% Patch 2 PATCH TOPICAL (05:57)
[2019-03-27] MEDS: Lisinopril 20 MG Tablet PO (05:57)
[2019-03-27] MEDS: hydroCHLOROthiazide 6.25mg TAB 6.25 MG PO (05:57)
[2019-03-27] MEDS: Nystatin Powder 15gm Bottle 1 APPLIC TOPICAL ×2 (05:58→21:59)
[2019-03-27] MEDS: Levothyroxine 88 MCG Tablet PO (05:58)
[2019-03-27] MEDS: Enoxaparin 40 MG/0.4 ML Syringe SC (05:58)
[2019-03-27] MEDS: Acetaminophen 500 MG Tablet 1000 MG PO ×3 (05:58→21:58)
[2019-03-27] MEDS: traMADol 50 MG Tablet PO (06:06)
[2019-03-27 06:26] LABS: Bedside Glucose 159 mg/dL (70-110)
[2019-03-27] MEDS: Baclofen 10 MG Tablet PO ×3 (08:16→16:55)
[2019-03-27] MEDS: metFORMIN HCl 500 MG Tablet PO ×2 (08:16→16:55)
[2019-03-27] MEDS: 0.9% NaCl IVPB Med Flush (250 mL) 15 ML IV ×4 (10:35→21:51)
[2019-03-27 10:56] LABS: Bedside Glucose 131 mg/dL (70-110)
[2019-03-27] MEDS: oxyCODONE 5 MG Tablet 20 MG PO (11:29)
[2019-03-27 15:40] VITALS: BP 137/61; PULSE 74; RESP 20; TEMP 36.4; O2SAT 96
[2019-03-27 17:06] LABS: Bedside Glucose 114 mg/dL (70-110)
[2019-03-27 21:41] LABS: Bedside Glucose 161 mg/dL (70-110)
[2019-03-27] MEDS: Doxepin Hcl 25 MG Capsule PO (23:50)
[2019-03-27] MEDS: oxyCODONE 5 MG Tablet 10 MG PO (23:50)
[2019-03-28] MEDS: Lidocaine 5% Patch 2 PATCH TOPICAL (05:39)
[2019-03-28] MEDS: oxyCODONE 5 MG Tablet 10 MG PO ×2 (05:42→22:56)
[2019-03-28] MEDS: Acetaminophen 500 MG Tablet 1000 MG PO ×3 (05:43→21:13)
[2019-03-28] MEDS: Levothyroxine 88 MCG Tablet PO (05:43)
[2019-03-28] MEDS: Bisoprolol Fumarate 5 MG Tablet PO (05:43)
[2019-03-28] MEDS: Enoxaparin 40 MG/0.4 ML Syringe SC (05:44)
[2019-03-28] MEDS: hydroCHLOROthiazide 6.25mg TAB 6.25 MG PO (05:44)
[2019-03-28] MEDS: Lisinopril 20 MG Tablet PO (05:45)
[2019-03-28] MEDS: Nystatin Powder 15gm Bottle 1 APPLIC TOPICAL ×2 (05:47→21:13)
[2019-03-28 05:50] VITALS: BP 158/84; PULSE 81
[2019-03-28 06:31] LABS: Bedside Glucose 131 mg/dL (70-110)
--- NOTE | 2019-03-28 07:43 | MDS.RN ---
Information for the mds was obtained from review of the clinical record, interview of resident, staff, and direct observation of resident's care.
[2019-03-28] MEDS: metFORMIN HCl 500 MG Tablet PO ×2 (08:09→17:42)
[2019-03-28] MEDS: Baclofen 10 MG Tablet PO ×3 (08:09→17:41)
[2019-03-28] MEDS: 0.9% NaCl PICC Flush IV ×3 (10:20→21:05)
[2019-03-28 11:26] LABS: Bedside Glucose 176 mg/dL (70-110)
[2019-03-28] MEDS: oxyCODONE 5 MG Tablet 20 MG PO (11:34)
[2019-03-28 15:11] VITALS: BP 138/67; PULSE 74; RESP 18; TEMP 36.1; O2SAT 96
[2019-03-28 16:55] LABS: Bedside Glucose 114 mg/dL (70-110)
--- NOTE | 2019-03-28 16:55 | CHAPLAIN ---
Type of Pastoral Visit ___ Initial Visit _x__ Follow-up Visit ___ On-call Visit ___ General Patient Visit ___ Spiritual Assessment ___ Family Conference ___ Bereavement ___ Rapid Response ___ Code Blue ___ Other (describe below) Pastoral Care Referral From _x__ Patient ___ Family ___ Nurse ___ Physician ___ Marine Mammal Trainer ___ Credit Review Officer ___ Other (describe below) Sacrament/Intervention _x__ Active listening ___ Anointing ___ Denominational ___ Bereavement ___ Communion _x__ Irish exploration ___ ___ Life review _x__ Prayer ___ Reconciliation ___ Sacrament of Sick _x__ Supportive presence ___ Wedding ___ Other (describe below) Pastoral Comments
[2019-03-28] MEDS: 0.9% NaCl IVPB Med Flush (250 mL) 15 ML IV (21:00)
[2019-03-28 21:06] LABS: Bedside Glucose 137 mg/dL (70-110)
[2019-03-28] MEDS: Doxepin Hcl 25 MG Capsule PO (22:58)
[2019-03-29] MEDS: oxyCODONE 5 MG Tablet 10 MG PO (06:17)
[2019-03-29] MEDS: Enoxaparin 40 MG/0.4 ML Syringe SC (06:18)
[2019-03-29] MEDS: Acetaminophen 500 MG Tablet 1000 MG PO ×3 (06:18→21:22)
[2019-03-29] MEDS: Lidocaine 5% Patch 2 PATCH TOPICAL (06:19)
[2019-03-29] MEDS: Levothyroxine 88 MCG Tablet PO (06:19)
[2019-03-29] MEDS: Bisoprolol Fumarate 5 MG Tablet PO (06:19)
[2019-03-29] MEDS: Lisinopril 20 MG Tablet PO (06:19)
[2019-03-29 06:25] LABS: Bedside Glucose 119 mg/dL (70-110)
[2019-03-29] MEDS: Nystatin Powder 15gm Bottle 1 APPLIC TOPICAL ×2 (06:25→21:23)
[2019-03-29] MEDS: metFORMIN HCl 500 MG Tablet PO ×2 (09:01→17:44)
[2019-03-29] MEDS: hydroCHLOROthiazide 6.25mg TAB 6.25 MG PO (09:01)
[2019-03-29] MEDS: Baclofen 10 MG Tablet PO ×3 (09:01→17:44)
[2019-03-29] MEDS: oxyCODONE 5 MG Tablet 20 MG PO (11:56)
--- NOTE | 2019-03-29 13:02 | CASEMGMT ---
Social Work Spoke with pt and about insurance approving with next review date 04/05. stated she is working with a heel caser at [facility] for the Medicaid application. She is awaiting another form to fill out and submit to finish the process. She will udpate this SW with any new information. Will continue to follow. TREE FlorentinoW
--- NOTE | 2019-03-29 13:18 | CASEMGMT ---
Insurance: Clinical update sent through [facility] reviewlink. Auth # [id number] Continued stay approved. LOS approved through 04/06 with an update due 04/05. YUSEF Ayers aware.
[2019-03-29] MEDS: 0.9% NaCl PICC Flush IV ×3 (13:35→21:25)
--- NOTE | 2019-03-29 15:07 | PCM.PN.ID ---
Patient Problems: Active and Suspected Problems (Last Updated 12/27/18 @ 07:53 by Ruben Sandoval DO) Abscess in epidural space of lumbar spine (Acute) Lumbar discitis (Acute) Psoas abscess (Acute) Subjective: Feeling well, rash resolved, no fever - Physical Exam General: Alert, Cooperative, No apparent distress Lungs: Clear to auscultation, Normal air movement Cardiovascular: Regular rate, Regular Rhythm Abdomen: Soft, Non Tender, Non-Distended Skin: No rashes Vital Signs Temp Pulse Resp BP Pulse Ox 97.0 F L 74 18 138/67 H 96 03/28/19 15:11 03/28/19 15:11 03/28/19 15:11 03/28/19 15:11 03/28/19 15:11 Oxygen Delivery Method Room Air Weight: 161.025 kg Body Mass Index (BMI) 53.9 Intake and Output for Last 24 Hours 03/27/19 03/28/19 03/29/19 23:59 23:59 23:59 Intake Total 1619 / 1619 1320 / 1320 1200 / 1200 Output Total 1000 / 1000 700 / 700 600 / 600 Balance 619 / 619 620 / 620 600 / 600 POC Glucose 03/29/19 03/28/19 03/28/19 06:16 20:54 16:50 POC Glucose 119 H 137 H 114 H Medical Necessity - Tobacco Use Smoking Status: Never smoker Tobacco Use: Non-smoker Route of nutrition/ use of supplements: [] Nutritional Intake: [] IV Site: [] Villagran Catheter: [] - Assessment/Plan Antibiotics: [] Assessment/Plan: [] Active and Suspected Problems (Last Updated 12/27/18 @ 07:53 by Ruben Sandoval DO) Abscess in epidural space of lumbar spine (Acute) Lumbar discitis (Acute) Psoas abscess (Acute) MSSA bacteremia with epidural abscess, s/p I&D at [facility] 03/08/19. Rash resolved, cont oxacillin. Will follow
[2019-03-29 16:00] VITALS: BP 129/65; PULSE 73; RESP 20; TEMP 36.6; O2SAT 95
[2019-03-29 17:26] LABS: Bedside Glucose 115 mg/dL (70-110)
--- NOTE | 2019-03-29 17:47 | NURSING ---
When offerring stool softener, resident states I don't ever want a stool softener. I don't know why they keep asking me that. Medication changed to prn and resident made aware. Agreeable at this time.
[2019-03-29] MEDS: Doxepin Hcl 25 MG Capsule PO (21:23)
[2019-03-29] MEDS: 0.9% NaCl IVPB Med Flush (250 mL) 15 ML IV (21:25)
[2019-03-30] MEDS: oxyCODONE 5 MG Tablet 10 MG PO ×2 (01:24→06:31)
[2019-03-30] MEDS: 0.9% NaCl PICC Flush IV ×5 (01:25→23:34)
[2019-03-30] MEDS: Bisoprolol Fumarate 5 MG Tablet PO (06:15)
[2019-03-30] MEDS: Acetaminophen 500 MG Tablet 1000 MG PO ×3 (06:15→21:56)
[2019-03-30] MEDS: Lisinopril 20 MG Tablet PO (06:15)
[2019-03-30] MEDS: Levothyroxine 88 MCG Tablet PO (06:15)
[2019-03-30] MEDS: Enoxaparin 40 MG/0.4 ML Syringe SC (06:15)
[2019-03-30] MEDS: hydroCHLOROthiazide 6.25mg TAB 6.25 MG PO (06:15)
[2019-03-30] MEDS: Lidocaine 5% Patch 2 PATCH TOPICAL (06:16)
[2019-03-30] MEDS: 0.9% NaCl IVPB Med Flush (250 mL) 15 ML IV (06:17)
[2019-03-30] MEDS: Nystatin Powder 15gm Bottle 1 APPLIC TOPICAL ×2 (06:18→21:57)
[2019-03-30 06:19] VITALS: BP 133/87; PULSE 81
[2019-03-30 07:01] LABS: Bedside Glucose 128 mg/dL (70-110)
[2019-03-30] MEDS: metFORMIN HCl 500 MG Tablet PO ×2 (07:48→17:41)
[2019-03-30] MEDS: Baclofen 10 MG Tablet PO ×3 (07:48→17:41)
[2019-03-30] MEDS: oxyCODONE 5 MG Tablet 20 MG PO (11:25)
[2019-03-30 16:00] VITALS: BP 135/79; PULSE 80; RESP 18; TEMP 36.6; O2SAT 96
[2019-03-30 16:46] LABS: Bedside Glucose 109 mg/dL (70-110)
[2019-03-30] MEDS: Doxepin Hcl 25 MG Capsule PO (21:56)
[2019-03-31 05:07] VITALS: BP 155/78; PULSE 83
[2019-03-31] MEDS: 0.9% NaCl IVPB Med Flush (250 mL) 15 ML IV ×2 (05:08→09:00)
[2019-03-31] MEDS: 0.9% NaCl PICC Flush IV ×5 (05:09→21:56)
[2019-03-31] MEDS: Acetaminophen 500 MG Tablet 1000 MG PO ×3 (05:16→21:56)
[2019-03-31] MEDS: oxyCODONE 5 MG Tablet 10 MG PO (05:16)
[2019-03-31] MEDS: hydroCHLOROthiazide 6.25mg TAB 6.25 MG PO (05:17)
[2019-03-31] MEDS: Lisinopril 20 MG Tablet PO (05:17)
[2019-03-31] MEDS: Bisoprolol Fumarate 5 MG Tablet PO (05:17)
[2019-03-31] MEDS: Levothyroxine 88 MCG Tablet PO (05:17)
[2019-03-31] MEDS: Nystatin Powder 15gm Bottle 1 APPLIC TOPICAL (05:18)
[2019-03-31] MEDS: Enoxaparin 40 MG/0.4 ML Syringe SC (05:19)
[2019-03-31] MEDS: Lidocaine 5% Patch 2 PATCH TOPICAL (05:19)
[2019-03-31 06:31] LABS: Bedside Glucose 190 mg/dL (70-110)
[2019-03-31] MEDS: metFORMIN HCl 500 MG Tablet PO ×2 (07:59→17:55)
[2019-03-31] MEDS: Baclofen 10 MG Tablet PO ×3 (07:59→17:55)
[2019-03-31] MEDS: oxyCODONE 5 MG Tablet 20 MG PO (10:47)
--- NOTE | 2019-03-31 13:46 | NURSING ---
13 frederick removed from back without incident, pt tolerated well. site unremarkable, abd and paper tape dressing on
[2019-03-31] MEDS: Nystatin/Triamcin Cream Tube 1 APPLIC TOPICAL ×2 (14:02→21:57)
[2019-03-31 14:11] VITALS: BP 130/67; PULSE 78; RESP 18; TEMP 36.6; O2SAT 97
[2019-03-31 16:55] LABS: Bedside Glucose 113 mg/dL (70-110)
[2019-03-31] MEDS: Doxepin Hcl 25 MG Capsule PO (21:56)
[2019-04-01] MEDS: 0.9% NaCl PICC Flush IV ×5 (02:01→21:16)
[2019-04-01] MEDS: Lisinopril 20 MG Tablet PO (05:28)
[2019-04-01] MEDS: Bisoprolol Fumarate 5 MG Tablet PO (05:28)
[2019-04-01] MEDS: Levothyroxine 88 MCG Tablet PO (05:28)
[2019-04-01] MEDS: Acetaminophen 500 MG Tablet 1000 MG PO ×3 (05:28→21:16)
[2019-04-01] MEDS: hydroCHLOROthiazide 6.25mg TAB 6.25 MG PO (05:28)
[2019-04-01] MEDS: Enoxaparin 40 MG/0.4 ML Syringe SC (05:29)
[2019-04-01] MEDS: Lidocaine 5% Patch 2 PATCH TOPICAL (05:29)
[2019-04-01] MEDS: Nystatin/Triamcin Cream Tube 1 APPLIC TOPICAL ×2 (05:35→21:20)
[2019-04-01 06:31] LABS: Bedside Glucose 149 mg/dL (70-110)
[2019-04-01 07:22] LABS: Absolute Lymphocyte Count 0.96 X10^3/uL (0.83-4.51); Basophil# 0.03 X10^3/uL; Basophil% 0.5 % (0-1); Eosinophil# 0.31 X10^3/uL; Eosinophils% 5.2 % (0-5); Hematocrit 40.3 % (40-54); Hemoglobin 13.3 g/dL (13.0-16.5); Lymphocyte # 0.96 X10^3/ul (4.0); Lymphocyte % 16.1 % (19-41); Mean Corpuscular Hgb 31.4 pg (27.0-32.0); Mean Corpuscular Volume 95.3 fL (80-94); Mean Platelet Vol. 9.5 fl (6.2-12.0); Monocyte% 10.1 % (0-10); NRBC Flagged by Analyzer 0 % (0-5); Neutrophil # 4.04 X10^3/uL (2.7-7.7); Neutrophil % 67.8 % (47-70); Platelet Count 198 K/mm3 (150-450); RBC Distribution Width CV 15.9 % (11.6-14.6); RBC Distribution Width SD 55.3 fl (35.1-43.9); Red Blood Count 4.23 M/mm3 (4.6-6.2)
[2019-04-01 07:34] LABS: Anion Gap 7 (5-15); BUN 13 mg/dL (7-18); BUN/Creat Ratio 14.2 RATIO (10-20); Calcium,Total 8.9 mg/dL (8.5-10.1); Chloride 106 mmol/L (98-107); Creatinine, Serum 0.92 mg/dL (0.70-1.30); EST Glomerular Filtration Rate 90 mL/min (>60); Est Glom Filt Rate - Afr Amer 109 mL/min (>60); Estimated Creatinine Clearance 84.67 ml/min; Glucose 134 mg/dL (74-106); Potassium 4.2 mmol/L (3.5-5.1); Sodium Level 140 mmol/L (136-145)
[2019-04-01] MEDS: Baclofen 10 MG Tablet PO ×3 (08:40→17:13)
[2019-04-01] MEDS: metFORMIN HCl 500 MG Tablet PO ×2 (08:40→17:13)
[2019-04-01] MEDS: 0.9% NaCl IVPB Med Flush (250 mL) 15 ML IV (10:45)
[2019-04-01 15:35] VITALS: BP 140/77; PULSE 75; RESP 18; TEMP 36.9; O2SAT 95
[2019-04-01 17:16] LABS: Bedside Glucose 102 mg/dL (70-110)
[2019-04-02] MEDS: 0.9% NaCl PICC Flush IV ×6 (01:18→21:12)
--- NOTE | 2019-04-02 02:42 | NURSING ---
This nurse into pts room to disconnect IV. Pt appeared to be upset. Pt stating that his father in law was sent via helicopter to [facility] and they do not know if he will make it home. 1:1 provided with therapeutic communication. Pt talked about his kids, grand kids, and in laws for several minutes. Pt thanked this nurse numerous times for letting him vent.
[2019-04-02] MEDS: Bisoprolol Fumarate 5 MG Tablet PO (06:15)
[2019-04-02] MEDS: Lisinopril 20 MG Tablet PO (06:15)
[2019-04-02] MEDS: Levothyroxine 88 MCG Tablet PO (06:15)
[2019-04-02] MEDS: hydroCHLOROthiazide 6.25mg TAB 6.25 MG PO (06:15)
[2019-04-02] MEDS: Lidocaine 5% Patch 2 PATCH TOPICAL (06:15)
[2019-04-02] MEDS: Acetaminophen 500 MG Tablet 1000 MG PO ×3 (06:16→21:16)
[2019-04-02] MEDS: Nystatin/Triamcin Cream Tube 1 APPLIC TOPICAL ×2 (06:16→21:15)
[2019-04-02] MEDS: Enoxaparin 40 MG/0.4 ML Syringe SC (06:16)
[2019-04-02 06:30] LABS: Bedside Glucose 146 mg/dL (70-110)
[2019-04-02] MEDS: Baclofen 10 MG Tablet PO ×3 (08:45→17:40)
[2019-04-02] MEDS: metFORMIN HCl 500 MG Tablet PO ×2 (08:46→17:40)
[2019-04-02] MEDS: 0.9% NaCl IVPB Med Flush (250 mL) 15 ML IV (10:24)
[2019-04-02 15:53] VITALS: BP 144/83; PULSE 79; RESP 20; TEMP 36.5; O2SAT 95
[2019-04-02 17:01] LABS: Bedside Glucose 124 mg/dL (70-110)
[2019-04-03] MEDS: 0.9% NaCl PICC Flush IV ×8 (02:17→21:22)
[2019-04-03] MEDS: Enoxaparin 40 MG/0.4 ML Syringe SC (05:33)
[2019-04-03] MEDS: Lisinopril 20 MG Tablet PO (05:33)
[2019-04-03] MEDS: Levothyroxine 88 MCG Tablet PO (05:33)
[2019-04-03] MEDS: Acetaminophen 500 MG Tablet 1000 MG PO ×3 (05:33→21:16)
[2019-04-03] MEDS: hydroCHLOROthiazide 6.25mg TAB 6.25 MG PO (05:33)
[2019-04-03] MEDS: Lidocaine 5% Patch 2 PATCH TOPICAL (05:34)
[2019-04-03] MEDS: Bisoprolol Fumarate 5 MG Tablet PO (05:34)
[2019-04-03] MEDS: Nystatin/Triamcin Cream Tube 1 APPLIC TOPICAL ×2 (05:41→21:23)
[2019-04-03 06:35] LABS: Bedside Glucose 114 mg/dL (70-110)
[2019-04-03] MEDS: Baclofen 10 MG Tablet PO ×3 (07:36→17:36)
[2019-04-03] MEDS: metFORMIN HCl 500 MG Tablet PO ×2 (07:36→17:37)
[2019-04-03] MEDS: 0.9% NaCl IVPB Med Flush (250 mL) 15 ML IV (09:28)
[2019-04-03] MEDS: oxyCODONE 5 MG Tablet 20 MG PO (11:37)
[2019-04-03 15:58] VITALS: BP 141/69; PULSE 75; RESP 18; TEMP 36.3; O2SAT 95
[2019-04-03 16:51] LABS: Bedside Glucose 130 mg/dL (70-110)
[2019-04-03] MEDS: oxyCODONE 5 MG Tablet 10 MG PO (21:16)
[2019-04-03] MEDS: Doxepin Hcl 25 MG Capsule PO (21:17)
[2019-04-04] MEDS: Lidocaine 5% Patch 2 PATCH TOPICAL (06:14)
[2019-04-04] MEDS: Acetaminophen 500 MG Tablet 1000 MG PO ×3 (06:14→21:16)
[2019-04-04] MEDS: Bisoprolol Fumarate 5 MG Tablet PO (06:14)
[2019-04-04] MEDS: Levothyroxine 88 MCG Tablet PO (06:15)
[2019-04-04] MEDS: Enoxaparin 40 MG/0.4 ML Syringe SC (06:15)
[2019-04-04] MEDS: Lisinopril 20 MG Tablet PO (06:15)
[2019-04-04] MEDS: hydroCHLOROthiazide 6.25mg TAB 6.25 MG PO (06:15)
[2019-04-04] MEDS: Nystatin/Triamcin Cream Tube 1 APPLIC TOPICAL ×2 (06:16→21:18)
[2019-04-04 06:26] LABS: Bedside Glucose 114 mg/dL (70-110)
[2019-04-04] MEDS: metFORMIN HCl 500 MG Tablet PO ×2 (07:42→17:26)
[2019-04-04] MEDS: Baclofen 10 MG Tablet PO ×3 (07:42→17:26)
[2019-04-04] MEDS: 0.9% NaCl PICC Flush IV ×4 (10:47→21:15)
[2019-04-04] MEDS: 0.9% NaCl IVPB Med Flush (250 mL) 100 ML IV (10:47)
[2019-04-04] MEDS: oxyCODONE 5 MG Tablet 20 MG PO (12:06)
[2019-04-04 14:17] VITALS: BP 131/74; PULSE 77; RESP 18; TEMP 36.6; O2SAT 96
--- NOTE | 2019-04-04 15:54 | CHAPLAIN ---
Type of Pastoral Visit ___ Initial Visit _x__ Follow-up Visit ___ On-call Visit ___ General Patient Visit ___ Spiritual Assessment ___ Family Conference ___ Bereavement ___ Rapid Response ___ Code Blue ___ Other (describe below) Pastoral Care Referral From _x__ Patient ___ Family ___ Nurse ___ Physician ___ Vegetable Harvest Machine Operator ___ Vascular Technologist Sonographer ___ Other (describe below) Sacrament/Intervention _x__ Active listening ___ Anointing ___ Yazidi ___ Bereavement ___ Communion _x__ Irish exploration ___ ___ Life review _x__ Prayer ___ Reconciliation ___ Sacrament of Sick _x__ Supportive presence ___ Wedding ___ Other (describe below) Pastoral Comments
[2019-04-04 17:21] LABS: Bedside Glucose 127 mg/dL (70-110)
[2019-04-04] MEDS: Doxepin Hcl 25 MG Capsule PO (23:01)
[2019-04-05] MEDS: 0.9% NaCl PICC Flush IV ×5 (02:12→21:33)
[2019-04-05] MEDS: Lidocaine 5% Patch 2 PATCH TOPICAL (05:10)
[2019-04-05] MEDS: Levothyroxine 88 MCG Tablet PO (05:11)
[2019-04-05] MEDS: Lisinopril 20 MG Tablet PO (05:11)
[2019-04-05] MEDS: Acetaminophen 500 MG Tablet 1000 MG PO ×3 (05:11→21:33)
[2019-04-05] MEDS: Bisoprolol Fumarate 5 MG Tablet PO (05:11)
[2019-04-05] MEDS: hydroCHLOROthiazide 6.25mg TAB 6.25 MG PO (05:11)
[2019-04-05] MEDS: Enoxaparin 40 MG/0.4 ML Syringe SC (05:11)
[2019-04-05] MEDS: Nystatin/Triamcin Cream Tube 1 APPLIC TOPICAL ×2 (05:17→21:36)
[2019-04-05 06:25] LABS: Bedside Glucose 116 mg/dL (70-110)
[2019-04-05] MEDS: Baclofen 10 MG Tablet PO ×3 (09:21→18:09)
[2019-04-05] MEDS: metFORMIN HCl 500 MG Tablet PO ×2 (09:21→18:09)
[2019-04-05] MEDS: traMADol 50 MG Tablet PO (09:21)
--- NOTE | 2019-04-05 09:42 | CASEMGMT ---
Insurance: Continued stay update sent to MMO through reviewlink this day. ZHEN Aviles
[2019-04-05] MEDS: oxyCODONE 5 MG Tablet 20 MG PO (11:33)
--- NOTE | 2019-04-05 12:45 | CASEMGMT ---
Insurance: Continued stay approved. Next update due 04/12/19. Auth # [id number].
--- NOTE | 2019-04-05 14:23 | CHAPLAIN ---
met with patient to deliver message from his spouse who is also in a hospital for medical care; other family members are present at this time
[2019-04-05] MEDS: oxyCODONE 5 MG Tablet 10 MG PO (14:50)
[2019-04-05 15:26] VITALS: BP 152/93; PULSE 80; RESP 18; TEMP 36.8; O2SAT 95
[2019-04-05 17:06] LABS: Bedside Glucose 119 mg/dL (70-110)
[2019-04-05] MEDS: Doxepin Hcl 25 MG Capsule PO (23:10)
[2019-04-06] MEDS: 0.9% NaCl IVPB Med Flush (250 mL) 100 ML IV (02:34)
[2019-04-06] MEDS: Acetaminophen 500 MG Tablet 1000 MG PO ×3 (05:25→21:34)
[2019-04-06] MEDS: 0.9% NaCl PICC Flush IV ×5 (05:25→21:36)
[2019-04-06] MEDS: hydroCHLOROthiazide 6.25mg TAB 6.25 MG PO (05:25)
[2019-04-06] MEDS: Lisinopril 20 MG Tablet PO (05:25)
[2019-04-06] MEDS: Levothyroxine 88 MCG Tablet PO (05:25)
[2019-04-06] MEDS: Enoxaparin 40 MG/0.4 ML Syringe SC (05:25)
[2019-04-06] MEDS: Bisoprolol Fumarate 5 MG Tablet PO (05:25)
[2019-04-06] MEDS: Lidocaine 5% Patch 2 PATCH TOPICAL (05:35)
[2019-04-06 06:36] LABS: Bedside Glucose 133 mg/dL (70-110)
[2019-04-06] MEDS: metFORMIN HCl 500 MG Tablet PO ×2 (08:36→17:33)
[2019-04-06] MEDS: Baclofen 10 MG Tablet PO ×3 (08:36→17:33)
[2019-04-06] MEDS: oxyCODONE 5 MG Tablet 10 MG PO (08:37)
[2019-04-06] MEDS: oxyCODONE 5 MG Tablet 20 MG PO (11:56)
[2019-04-06 15:20] VITALS: BP 129/75; PULSE 77; RESP 18; TEMP 36.9; O2SAT 96
[2019-04-06 17:10] LABS: Bedside Glucose 105 mg/dL (70-110)
[2019-04-06] MEDS: 0.9% NaCl IVPB Med Flush (250 mL) 15 ML IV (21:27)
[2019-04-06] MEDS: Nystatin/Triamcin Cream Tube 1 APPLIC TOPICAL (21:34)
[2019-04-06] MEDS: Doxepin Hcl 25 MG Capsule PO (21:34)
[2019-04-07] MEDS: Enoxaparin 40 MG/0.4 ML Syringe SC (05:12)
[2019-04-07] MEDS: Acetaminophen 500 MG Tablet 1000 MG PO ×3 (05:13→21:43)
[2019-04-07] MEDS: Bisoprolol Fumarate 5 MG Tablet PO (05:13)
[2019-04-07] MEDS: hydroCHLOROthiazide 6.25mg TAB 6.25 MG PO (05:13)
[2019-04-07] MEDS: Levothyroxine 88 MCG Tablet PO (05:13)
[2019-04-07] MEDS: Lidocaine 5% Patch 2 PATCH TOPICAL (05:14)
[2019-04-07] MEDS: Lisinopril 20 MG Tablet PO (05:14)
[2019-04-07 06:21] LABS: Bedside Glucose 116 mg/dL (70-110)
[2019-04-07] MEDS: Baclofen 10 MG Tablet PO ×3 (08:43→17:49)
[2019-04-07] MEDS: metFORMIN HCl 500 MG Tablet PO ×2 (08:43→17:49)
[2019-04-07] MEDS: 0.9% NaCl PICC Flush IV ×4 (09:17→21:56)
[2019-04-07] MEDS: oxyCODONE 5 MG Tablet 20 MG PO (11:27)
[2019-04-07] MEDS: oxyCODONE 5 MG Tablet 10 MG PO (13:28)
--- NOTE | 2019-04-07 13:35 | NURSING ---
Pt taken to Dr. andujar with Dr. Cornejo by ambulance.
[2019-04-07 16:00] VITALS: BP 137/76; PULSE 76; RESP 20; TEMP 36.5; O2SAT 94
[2019-04-07 17:55] LABS: Bedside Glucose 97 mg/dL (70-110)
[2019-04-07 22:20] VITALS: PULSE 76; RESP 20; O2SAT 94
[2019-04-08] MEDS: 0.9% NaCl PICC Flush IV ×9 (01:16→22:18)
--- NOTE | 2019-04-08 01:49 | NURSING ---
Pt saw Dr Cornejo 04/07, only thing passed on by day shift was that said Pt needs to be moving more. Pt Lumbar incision noted to be slightly dehisced to top, small section in the middle, and bottom. 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
[2019-04-08] MEDS: oxyCODONE 5 MG Tablet 10 MG PO ×2 (04:16→15:41)
[2019-04-08] MEDS: hydroCHLOROthiazide 6.25mg TAB 6.25 MG PO (04:19)
[2019-04-08] MEDS: Lisinopril 20 MG Tablet PO (04:19)
[2019-04-08] MEDS: Levothyroxine 88 MCG Tablet PO (04:20)
[2019-04-08] MEDS: Bisoprolol Fumarate 5 MG Tablet PO (04:20)
[2019-04-08] MEDS: Acetaminophen 500 MG Tablet 1000 MG PO ×3 (04:20→22:18)
[2019-04-08] MEDS: Lidocaine 5% Patch 2 PATCH TOPICAL (04:20)
[2019-04-08] MEDS: Enoxaparin 40 MG/0.4 ML Syringe SC (04:29)
[2019-04-08] MEDS: 0.9% NaCl IVPB Med Flush (250 mL) 15 ML IV (05:49)
[2019-04-08 06:26] LABS: Bedside Glucose 138 mg/dL (70-110)
[2019-04-08 07:24] LABS: Absolute Neutrophil Count 4.2 X10^3/uL (2.0-7.7); Basophil# 0.03 X10^3/uL; Basophil% 0.5 % (0-1); Eosinophil# 0.36 X10^3/uL; Eosinophils% 5.5 % (0-5); Hematocrit 38.9 % (40-54); Hemoglobin 12.6 g/dL (13.0-16.5); Lymphocyte % 18.4 % (19-41); Mean Corp Hgb Conc 32.4 g/dL (32-36); Mean Corpuscular Hgb 31.6 pg (27.0-32.0); Mean Corpuscular Volume 97.5 fL (80-94); Mean Platelet Vol. 9.6 fl (6.2-12.0); Monocyte# 0.72 X10^3/uL; NRBC Flagged by Analyzer 0 % (0-5); Neutrophil # 4.19 X10^3/uL (2.7-7.7); Neutrophil % 64.1 % (47-70); Platelet Count 212 K/mm3 (150-450); RBC Distribution Width CV 16.1 % (11.6-14.6); RBC Distribution Width SD 57.3 fl (35.1-43.9); Red Blood Count 3.99 M/mm3 (4.6-6.2); White Blood Count 6.5 K/mm3 (4.4-11.0)
[2019-04-08 07:43] LABS: Anion Gap 8 (5-15); BUN 16 mg/dL (7-18); BUN/Creat Ratio 15.2 RATIO (10-20); Calcium,Total 8.5 mg/dL (8.5-10.1); Chloride 105 mmol/L (98-107); Creatinine, Serum 1.05 mg/dL (0.70-1.30); EST Glomerular Filtration Rate 77 mL/min (>60); Est Glom Filt Rate - Afr Amer 93 mL/min (>60); Estimated Creatinine Clearance 74.19 ml/min; Glucose 117 mg/dL (74-106); Potassium 4.1 mmol/L (3.5-5.1); Sodium Level 140 mmol/L (136-145)
[2019-04-08] MEDS: Baclofen 10 MG Tablet PO ×3 (08:27→16:59)
[2019-04-08] MEDS: metFORMIN HCl 500 MG Tablet PO ×2 (08:27→16:59)
[2019-04-08] MEDS: oxyCODONE 5 MG Tablet 20 MG PO (08:31)
[2019-04-08 11:06] LABS: Bedside Glucose 123 mg/dL (70-110)
--- NOTE | 2019-04-08 12:42 | PCA ---
Family brought in food for patient noted in room was pizza an a birthday cake
[2019-04-08 15:58] VITALS: BP 136/81; PULSE 72; RESP 20; TEMP 36.3; O2SAT 97
[2019-04-08 17:10] LABS: Bedside Glucose 149 mg/dL (70-110)
[2019-04-08] MEDS: Doxepin Hcl 25 MG Capsule PO (22:19)
[2019-04-09] MEDS: oxyCODONE 5 MG Tablet 10 MG PO (01:29)
[2019-04-09] MEDS: 0.9% NaCl PICC Flush IV ×3 (01:30→21:56)
[2019-04-09] MEDS: Levothyroxine 88 MCG Tablet PO (06:10)
[2019-04-09] MEDS: Bisoprolol Fumarate 5 MG Tablet PO (06:10)
[2019-04-09] MEDS: hydroCHLOROthiazide 6.25mg TAB 6.25 MG PO (06:10)
[2019-04-09] MEDS: Lisinopril 20 MG Tablet PO (06:10)
[2019-04-09] MEDS: Acetaminophen 500 MG Tablet 1000 MG PO ×3 (06:10→21:48)
[2019-04-09] MEDS: Enoxaparin 40 MG/0.4 ML Syringe SC (06:15)
[2019-04-09 06:21] LABS: Bedside Glucose 156 mg/dL (70-110)
[2019-04-09] MEDS: metFORMIN HCl 500 MG Tablet PO ×2 (09:48→18:17)
[2019-04-09] MEDS: Baclofen 10 MG Tablet PO ×3 (09:48→18:17)
[2019-04-09 15:25] VITALS: BP 139/72; PULSE 78; RESP 18; TEMP 36.8; O2SAT 95
[2019-04-09 17:01] LABS: Bedside Glucose 131 mg/dL (70-110)
[2019-04-09] MEDS: 0.9% NaCl IVPB Med Flush (250 mL) 100 ML IV (21:45)
[2019-04-09] MEDS: Doxepin Hcl 25 MG Capsule PO (21:49)
[2019-04-10] MEDS: oxyCODONE 5 MG Tablet 10 MG PO ×2 (05:58→10:01)
[2019-04-10] MEDS: Acetaminophen 500 MG Tablet 1000 MG PO ×3 (05:59→22:00)
[2019-04-10] MEDS: Enoxaparin 40 MG/0.4 ML Syringe SC (05:59)
[2019-04-10] MEDS: Levothyroxine 88 MCG Tablet PO (06:00)
[2019-04-10] MEDS: Lisinopril 20 MG Tablet PO (06:00)
[2019-04-10] MEDS: hydroCHLOROthiazide 6.25mg TAB 6.25 MG PO (06:00)
[2019-04-10] MEDS: Bisoprolol Fumarate 5 MG Tablet PO (06:00)
[2019-04-10 06:21] LABS: Bedside Glucose 124 mg/dL (70-110)
[2019-04-10] MEDS: Lidocaine 5% Patch 2 PATCH TOPICAL (06:41)
[2019-04-10] MEDS: traMADol 50 MG Tablet PO (08:17)
[2019-04-10] MEDS: Baclofen 10 MG Tablet PO ×3 (08:18→18:17)
[2019-04-10] MEDS: metFORMIN HCl 500 MG Tablet PO ×2 (08:18→18:17)
[2019-04-10 10:00] VITALS: PULSE 76; RESP 18; O2SAT 96
[2019-04-10] MEDS: 0.9% NaCl PICC Flush IV ×3 (10:02→21:52)
[2019-04-10] MEDS: oxyCODONE 5 MG Tablet 20 MG PO (11:33)
[2019-04-10 16:00] VITALS: BP 146/85; PULSE 72; RESP 20; TEMP 36.8; O2SAT 98
--- NOTE | 2019-04-10 16:29 | CASEMGMT ---
Social Work Spoke with patient's whom stated JFS Manager Professional Development will visit pt 04/13 to complete assessment. Will await outcome of assessment to determine eligibility for services. Next insurance update 04/12. Will continue to follow. TREE FlorentinoW
[2019-04-10 17:11] LABS: Bedside Glucose 108 mg/dL (70-110)
[2019-04-10] MEDS: 0.9% NaCl IVPB Med Flush (250 mL) 100 ML IV (21:49)
[2019-04-10] MEDS: Doxepin Hcl 25 MG Capsule PO (22:01)
[2019-04-11] MEDS: oxyCODONE 5 MG Tablet 10 MG PO ×4 (01:51→23:05)
[2019-04-11] MEDS: 0.9% NaCl PICC Flush IV ×6 (01:52→22:13)
[2019-04-11] MEDS: Bisoprolol Fumarate 5 MG Tablet PO (06:19)
[2019-04-11] MEDS: Levothyroxine 88 MCG Tablet PO (06:19)
[2019-04-11] MEDS: Lisinopril 20 MG Tablet PO (06:19)
[2019-04-11] MEDS: Enoxaparin 40 MG/0.4 ML Syringe SC (06:19)
[2019-04-11] MEDS: Acetaminophen 500 MG Tablet 1000 MG PO ×3 (06:19→22:22)
[2019-04-11] MEDS: hydroCHLOROthiazide 6.25mg TAB 6.25 MG PO (06:19)
[2019-04-11 06:45] LABS: Bedside Glucose 113 mg/dL (70-110)
[2019-04-11] MEDS: metFORMIN HCl 500 MG Tablet PO ×2 (07:43→16:55)
[2019-04-11] MEDS: Baclofen 10 MG Tablet PO ×3 (07:43→16:55)
--- NOTE | 2019-04-11 08:10 | PN_ITS ---
Subjective: Resident seen in room, sitting in chair. Here for regulatory visit. He is doing well, progressing with therapy, tolerating Oxacillin. He notes numbness of left lateral thigh, but this is chronic. He also reports muscle strain right upper thigh, but he relates this to injury suffered when he was 17 year old. Pain is mostly controlled. Vitals/I&O's: Vital Signs Temp Pulse Resp BP Pulse Ox 98.3 F 72 20 H 146/85 H 98 04/10/19 16:00 04/10/19 16:00 04/10/19 16:00 04/10/19 16:00 04/10/19 16:00 Oxygen Delivery Method Room Air Weight: 157.056 kg Body Mass Index (BMI) 53.9 Intake and Output for Last 24 Hours 04/09/19 04/10/19 04/11/19 23:59 23:59 23:59 Intake Total 2176.67 / 2176.67 2303.42 / 2303.42 245 / 245 Output Total 780 / 780 Balance 2176.67 / 2176.67 2303.42 / 2303.42 -535 / -535 Laboratory Results 04/10/19 17:04: POC Glucose 108 04/11/19 06:35: POC Glucose 113 H Past Medical History Past Medical History (Chronic Problems): Chronic Problems (Last Updated 12/27/18 @ 07:53 by Ruben Sandoval DO) Obstructive sleep apnea (Chronic) Hyperlipidemia (Chronic) Hypothyroidism (Chronic) Psoas tendinitis (Chronic) Morbid obesity (Chronic) Headache (Chronic) Osteoarthritis (Chronic) History of left psoas muscle injury (Chronic) Chronic back pain (Chronic) Muscle spasm (Chronic) Hypertension (Chronic) Muscle tear (Chronic) Medical History: Medical History (Last Updated 12/27/18 @ 07:53 by Ruben Sandoval DO) Hyperlipidemia E78.5 Hypothyroid E03.9 RO (obstructive sleep apnea) G47.33 HTN (hypertension) I10 Allergies No Known Allergies Allergy (Verified 02/08/19 18:47) Home Medications: Ambulatory Orders Medication Instructions Recorded Oxycodone HCl 5 mg PO Q6H PRN PRN 02/08/19 Baclofen [Lioresal] 10 mg PO TIDCM PRN #90 tab 02/10/19 Lisinopril [Zestril] 20 mg PO DAILY 03/17/19 Surgical History: - - Thumb cyst removal, Plantar fasciitis surgery. Psychiatric History: No pertinent psych hx Lives: Spouse/ Significant Other Smoking Status: Never smoker Tobacco Use: Non-smoker Alcohol: None Drugs: None - *Family History Maternal Family History: Family History (Last Updated 12/27/18 @ 07:53 by Ruben Sandoval DO) Other CAD (coronary artery disease) History Items: No pertinent history Paternal Family History: Family History (Last Updated 12/27/18 @ 07:53 by Ruben Sandoval DO) Other CAD (coronary artery disease) History Items: No pertinent history Capacity - Capacity Assessment Tool Can the patient make a choice & communicate that choice?: Yes Can the patient understand benefits, risks and alternatives?: Yes Can the patient make a logical, rational choice?: Yes Is the choice the patient makes consistent w/ their values?: Yes Is there an impending, emergent risk to the patient?: No Does the patient have an Advance Directive?: No Is there a Surrogate Available?: Yes i.e. HCPOA: Yes i.e. close relative (spouse, child, parent, sibling)?: Yes Review of Systems Constitutional: Denies: Chills, Fever, Weight Change HEENT: Denies: Head Aches, Sinus Congestion, Sinus Drainage Cardiovascular: Denies: Chest Pain, Palpitations Respiratory: Denies: Cough, Shortness of breath at rest, Sputum production Gastrointestinal: Denies: Abdominal Pain, Nausea, Vomiting Genitourinary: Denies: Dysuria Musculoskeletal: Denies: Joint Pain, Joint Tenderness Skin: Denies: Rash, Wounds Neurological: Denies: Numbness, Tingling, Focal weakness Psychiatric: Denies: Anxiety, Depression, Homicidal Ideations, Suicidal Ideations Hematologic/ Lymphatic: Denies: Easy Bruising, Easy Bleeding Patient Problems: Active and Suspected Problems (Last Updated 12/27/18 @ 07:53 by Ruben Sandoval DO) Abscess in epidural space of lumbar spine (Acute) Lumbar discitis (Acute) Psoas abscess (Acute) - Physical Exam General: Alert, Oriented x3, Cooperative HEENT: Atraumatic, PERRLA, EOMI, Normocephalic Neck: Supple, No JVD, Negative Carotid Bruits Lungs: Clear to auscultation, Normal air movement Cardiovascular: Regular rate, No murmurs Abdomen: Bowel Sounds Present, Soft, Non Tender Extremities: No edema, Capillary Refill Less than 3 Seconds, - - Left upper extremity PICC line. Skin: No rashes, No breakdown Musculoskeletal: No Tenderness to Palpation of Joints or Extremities Neurological: Cranial nerves II-XII grossly intact Psych/Mental Status: Normal Affect, Appropriate Vital Signs Temp Pulse Resp BP Pulse Ox 98.3 F 72 20 H 146/85 H 98 04/10/19 16:00 04/10/19 16:00 04/10/19 16:00 04/10/19 16:00 04/10/19 16:00 Oxygen Delivery Method Room Air Weight: 157.056 kg Body Mass Index (BMI) 53.9 Intake and Output for Last 24 Hours 04/09/19 04/10/19 04/11/19 23:59 23:59 23:59 Intake Total 2176.67 / 2176.67 2303.42 / 2303.42 245 / 245 Output Total 780 / 780 Balance 2176.67 / 2176.67 2303.42 / 2303.42 -535 / -535 POC Glucose 04/11/19 04/10/19 06:35 17:04 POC Glucose 113 H 108 Assessment/Plan All Active Problems (Last Updated 12/27/18 @ 07:53 by Ruben Sandoval DO) Right shoulder pain (Acute) Abscess in epidural space of lumbar spine (Acute) Lumbar discitis (Acute) Psoas abscess (Acute) MSSA bacteremia (Acute) 58 year old male with below past medical history hospitalized for MSSA bacteremia, lumbar epidural abscess, lumbar discitis, underwent microdiscectomy with incision and drainage 03/11/2019, admitted to TCU with debility, here for rehabilitation, strengthening, intravenous antibiotics, prior to discharge home with spouse. * Debility - PT/OT. * Pain - Tylenol 1000MG Q8H, Tramadol 50MG Q6H PRN moderate pain, Oxycodone 10MG Q4H PRN severe pain, Oxycodone 20MG daily PRN prior to therapy. * Bowel - Miralax 17GM daily, Senna/colace 2 tablets BID PRN, Dulcolax 10MG daily PRN. * Pneumonia vaccination - Consider Pneumovax 23 if not received due to Diabetes Mellitus II. * DVT prophylaxis - Lovenox 40MG SC daily. * Muscle spasm - Baclofen 10MG TID. * Hypertension - Bisoprolol 5MG daily, HCTZ 6.25MG daily, Lisinopril 20MG daily. * Hypothyroidism - Levothyroxine 88MCG daily. * Low back pain - Lidoderm patch 2 patches daily. * Diabetes Mellitus II - Metformin 500MG twice daily, blood sugars well controlled. * MSSA bacteremia/lumbar epidural abscess/lumbar discitis - Oxacillin 2GM IV Q4H thru 05/09/2019. Appreciate Dr. Russell's help. * Insomnia - Doxepin 25MG QHS. * Rash - HC 2.5% cream BID PRN, much improved.
[2019-04-11] MEDS: Lidocaine 5% Patch 2 PATCH TOPICAL (08:28)
--- NOTE | 2019-04-11 10:47 | PCM.PN.ID ---
Patient Problems: Active and Suspected Problems (Last Updated 12/27/18 @ 07:53 by Ruben Sandoval DO) Abscess in epidural space of lumbar spine (Acute) Lumbar discitis (Acute) Psoas abscess (Acute) Subjective: Some R hip soreness after sleeping on it wrong. No fever, no rash. - Physical Exam General: Alert, Cooperative, No apparent distress Lungs: Clear to auscultation, Normal air movement Cardiovascular: Regular rate, Regular Rhythm Abdomen: Soft, Non Tender, Non-Distended Skin: No rashes Vital Signs Temp Pulse Resp BP Pulse Ox 98.3 F 72 20 H 146/85 H 98 04/10/19 16:00 04/10/19 16:00 04/10/19 16:00 04/10/19 16:00 04/10/19 16:00 Oxygen Delivery Method Room Air Weight: 157.056 kg Body Mass Index (BMI) 53.9 Intake and Output for Last 24 Hours 04/09/19 04/10/19 04/11/19 23:59 23:59 23:59 Intake Total 2176.67 / 2176.67 2303.42 / 2303.42 725 / 725 Output Total 780 / 780 Balance 2176.67 / 2176.67 2303.42 / 2303.42 -55 / -55 POC Glucose 04/11/19 04/10/19 06:35 17:04 POC Glucose 113 H 108 Medical Necessity - Tobacco Use Smoking Status: Never smoker Tobacco Use: Non-smoker Route of nutrition/ use of supplements: [] Nutritional Intake: [] IV Site: [] Villagran Catheter: [] - Assessment/Plan Antibiotics: [] Assessment/Plan: [] Active and Suspected Problems (Last Updated 12/27/18 @ 07:53 by Ruben Sandoval DO) Abscess in epidural space of lumbar spine (Acute) Lumbar discitis (Acute) Psoas abscess (Acute) MSSA bacteremia with epidural abscess, s/p I&D at [facility] 03/08/19. Rash resolved, cont oxacillin. Stop date planned for 05/09/19. Will follow
[2019-04-11] MEDS: oxyCODONE 5 MG Tablet 20 MG PO (11:27)
[2019-04-11 15:41] VITALS: BP 144/75; PULSE 64; RESP 18; TEMP 36.7; O2SAT 94
[2019-04-11 16:45] LABS: Bedside Glucose 125 mg/dL (70-110)
[2019-04-11] MEDS: 0.9% NaCl IVPB Med Flush (250 mL) 100 ML IV (22:13)
[2019-04-11] MEDS: Doxepin Hcl 25 MG Capsule PO (23:06)
[2019-04-12] MEDS: 0.9% NaCl PICC Flush IV ×4 (01:44→22:00)
[2019-04-12 04:41] VITALS: BP 156/83; PULSE 68
[2019-04-12] MEDS: oxyCODONE 5 MG Tablet 10 MG PO (04:44)
[2019-04-12] MEDS: Lidocaine 5% Patch 2 PATCH TOPICAL (04:45)
[2019-04-12] MEDS: Bisoprolol Fumarate 5 MG Tablet PO (04:45)
[2019-04-12] MEDS: hydroCHLOROthiazide 6.25mg TAB 6.25 MG PO (04:45)
[2019-04-12] MEDS: Enoxaparin 40 MG/0.4 ML Syringe SC (04:46)
[2019-04-12] MEDS: Lisinopril 20 MG Tablet PO (04:46)
[2019-04-12] MEDS: Levothyroxine 88 MCG Tablet PO (04:46)
[2019-04-12] MEDS: Acetaminophen 500 MG Tablet 1000 MG PO ×3 (06:23→22:03)
[2019-04-12 06:56] LABS: Bedside Glucose 128 mg/dL (70-110)
[2019-04-12] MEDS: Baclofen 10 MG Tablet PO ×3 (08:30→17:29)
[2019-04-12] MEDS: metFORMIN HCl 500 MG Tablet PO ×2 (08:30→17:29)
--- NOTE | 2019-04-12 11:06 | NURSING ---
Educated patient about his pain levels and diet, encouraged pt to eat more vegetables and eat less sugar and soda pop. Pt receptive to teaching and willing to look into it. Info on websites provided so he can learn even more about healthier eating.
[2019-04-12] MEDS: oxyCODONE 5 MG Tablet 20 MG PO (11:40)
--- NOTE | 2019-04-12 12:52 | CASEMGMT ---
Addendum entered by Sherry Miguel 04/12/19 17:33: Insurance authorization # [id number]. Original Note: Social Work Insurance extended pt's stay with next review date 04/21, approved through 04/22. Patient states he feels himself getting stronger and able to withstand therapy better. Will continue to follow. Andria Dobbins, AQUACULTURAL WORKER SUPERVISOR OUTSOLE SCHEDULER
[2019-04-12 15:43] VITALS: BP 136/79; PULSE 78; RESP 18; TEMP 35.7; O2SAT 93
--- NOTE | 2019-04-12 16:36 | CHAPLAIN ---
Type of Pastoral Visit ___ Initial Visit _x__ Follow-up Visit ___ On-call Visit ___ General Patient Visit ___ Spiritual Assessment ___ Family Conference ___ Bereavement ___ Rapid Response ___ Code Blue ___ Other (describe below) Pastoral Care Referral From _x__ Patient ___ Family ___ Nurse ___ Physician ___ Buttermaker ___ Receiving Supervisor ___ Other (describe below) Sacrament/Intervention _x__ Active listening ___ Anointing ___ Protestant ___ Bereavement ___ Communion _x__ Irish exploration ___ ___ Life review _x__ Prayer ___ Reconciliation ___ Sacrament of Sick _x__ Supportive presence ___ Wedding ___ Other (describe below) Pastoral Comments patient requested visit from this appeals analyst; pt had question about Bible to discuss; pt requests prayer support; pt talks about family
[2019-04-12 16:51] LABS: Bedside Glucose 125 mg/dL (70-110)
[2019-04-12] MEDS: 0.9% NaCl IVPB Med Flush (250 mL) 100 ML IV (22:04)
[2019-04-12] MEDS: Doxepin Hcl 25 MG Capsule PO (23:32)
[2019-04-13] MEDS: oxyCODONE 5 MG Tablet 10 MG PO ×3 (02:11→19:22)
[2019-04-13 06:26] LABS: Bedside Glucose 198 mg/dL (70-110)
[2019-04-13] MEDS: Enoxaparin 40 MG/0.4 ML Syringe SC (06:29)
[2019-04-13] MEDS: Levothyroxine 88 MCG Tablet PO (06:30)
[2019-04-13] MEDS: Acetaminophen 500 MG Tablet 1000 MG PO ×3 (06:30→21:31)
[2019-04-13] MEDS: hydroCHLOROthiazide 6.25mg TAB 6.25 MG PO (06:30)
[2019-04-13] MEDS: Bisoprolol Fumarate 5 MG Tablet PO (06:30)
[2019-04-13] MEDS: Lisinopril 20 MG Tablet PO (06:30)
[2019-04-13] MEDS: 0.9% NaCl PICC Flush IV ×5 (06:35→21:29)
[2019-04-13] MEDS: metFORMIN HCl 500 MG Tablet PO ×2 (08:00→17:38)
[2019-04-13] MEDS: Baclofen 10 MG Tablet PO ×3 (08:00→17:38)
[2019-04-13] MEDS: oxyCODONE 5 MG Tablet 20 MG PO (11:39)
[2019-04-13 14:51] VITALS: BP 138/84; PULSE 79; RESP 18; TEMP 37.1; O2SAT 96
[2019-04-13 17:06] LABS: Bedside Glucose 104 mg/dL (70-110)
--- NOTE | 2019-04-13 17:43 | NURSING ---
dr Otero in to see pt, new order for CT scan of lumbar spine d/t no change in pain since surgery. will start preauth.
[2019-04-13] MEDS: 0.9% NaCl IVPB Med Flush (250 mL) 100 ML IV (21:28)
[2019-04-13] MEDS: traMADol 50 MG Tablet PO (22:51)
[2019-04-13] MEDS: Doxepin Hcl 25 MG Capsule PO (22:52)
[2019-04-14] MEDS: 0.9% NaCl PICC Flush IV ×5 (01:58→21:48)
[2019-04-14] MEDS: Enoxaparin 40 MG/0.4 ML Syringe SC (06:06)
[2019-04-14] MEDS: Acetaminophen 500 MG Tablet 1000 MG PO ×3 (06:06→21:51)
[2019-04-14] MEDS: hydroCHLOROthiazide 6.25mg TAB 6.25 MG PO (06:06)
[2019-04-14] MEDS: Bisoprolol Fumarate 5 MG Tablet PO (06:06)
[2019-04-14] MEDS: Lisinopril 20 MG Tablet PO (06:06)
[2019-04-14] MEDS: Levothyroxine 88 MCG Tablet PO (06:06)
[2019-04-14] MEDS: Lidocaine 5% Patch 2 PATCH TOPICAL (06:07)
[2019-04-14 06:26] LABS: Bedside Glucose 131 mg/dL (70-110)
[2019-04-14] MEDS: Baclofen 10 MG Tablet PO ×3 (07:43→17:16)
[2019-04-14] MEDS: metFORMIN HCl 500 MG Tablet PO ×2 (07:43→17:16)
[2019-04-14] MEDS: oxyCODONE 5 MG Tablet 10 MG PO (09:16)
[2019-04-14] MEDS: oxyCODONE 5 MG Tablet 20 MG PO (12:25)
--- NOTE | 2019-04-14 14:58 | CASEMGMT ---
Social Work Completed Advanced Directives. Placed copy on chart. Referred to physician for discussing code status options. Andria Dobbins MSW WINDOW UNIT AIR CONDITIONING MECHANIC
[2019-04-14 15:39] VITALS: BP 136/68; PULSE 73; RESP 18; TEMP 36.6; O2SAT 94
--- NOTE | 2019-04-14 20:00 | NURSING ---
this nurse offered to walk pt this hs. pt refused at this time and stated that i don't want to tonight.
[2019-04-14] MEDS: 0.9% NaCl IVPB Med Flush (250 mL) 100 ML IV (21:42)
[2019-04-15] MEDS: Enoxaparin 40 MG/0.4 ML Syringe SC (05:03)
[2019-04-15] MEDS: Acetaminophen 500 MG Tablet 1000 MG PO ×3 (05:04→22:47)
[2019-04-15] MEDS: Lisinopril 20 MG Tablet PO (05:04)
[2019-04-15] MEDS: hydroCHLOROthiazide 6.25mg TAB 6.25 MG PO (05:05)
[2019-04-15] MEDS: Levothyroxine 88 MCG Tablet PO (05:05)
[2019-04-15] MEDS: Bisoprolol Fumarate 5 MG Tablet PO (05:05)
[2019-04-15] MEDS: 0.9% NaCl PICC Flush IV ×5 (06:16→21:37)
[2019-04-15 06:41] LABS: Bedside Glucose 111 mg/dL (70-110)
[2019-04-15 06:48] LABS: Absolute Lymphocyte Count 0.86 X10^3/uL (0.83-4.51); Absolute Neutrophil Count 3.9 X10^3/uL (2.0-7.7); Basophil# 0.02 X10^3/uL; Basophil% 0.3 % (0-1); Eosinophil# 0.31 X10^3/uL; Eosinophils% 5.4 % (0-5); Hematocrit 38.5 % (40-54); Hemoglobin 12.4 g/dL (13.0-16.5); Lymphocyte # 0.86 X10^3/ul (4.0); Lymphocyte % 14.9 % (19-41); Mean Corp Hgb Conc 32.2 g/dL (32-36); Mean Corpuscular Hgb 30.9 pg (27.0-32.0); Mean Platelet Vol. 9.8 fl (6.2-12.0); Monocyte# 0.68 X10^3/uL; Monocyte% 11.7 % (0-10); NRBC Flagged by Analyzer 0 % (0-5); Neutrophil # 3.89 X10^3/uL (2.7-7.7); Neutrophil % 67.2 % (47-70); Platelet Count 207 K/mm3 (150-450); RBC Distribution Width CV 15.9 % (11.6-14.6); RBC Distribution Width SD 56.9 fl (35.1-43.9); Red Blood Count 4.01 M/mm3 (4.6-6.2); White Blood Count 5.8 K/mm3 (4.4-11.0)
[2019-04-15 07:15] LABS: Anion Gap 7 (5-15); BUN 13 mg/dL (7-18); BUN/Creat Ratio 15.3 RATIO (10-20); Calcium,Total 8.7 mg/dL (8.5-10.1); Chloride 107 mmol/L (98-107); Creatinine, Serum 0.85 mg/dL (0.70-1.30); EST Glomerular Filtration Rate 99 mL/min (>60); Est Glom Filt Rate - Afr Amer 119 mL/min (>60); Estimated Creatinine Clearance 91.65 ml/min; Glucose 101 mg/dL (74-106); Potassium 4.1 mmol/L (3.5-5.1); Sodium Level 142 mmol/L (136-145)
--- NOTE | 2019-04-15 08:03 | NURSING ---
New order to notify Dr. Russell of CT results and MRI of lumbar spine with contrast.
[2019-04-15] MEDS: Baclofen 10 MG Tablet PO ×3 (08:47→17:37)
[2019-04-15] MEDS: metFORMIN HCl 500 MG Tablet PO ×2 (08:47→17:37)
[2019-04-15] MEDS: Lidocaine 5% Patch 2 PATCH TOPICAL (10:57)
[2019-04-15] MEDS: oxyCODONE 5 MG Tablet 20 MG PO (11:05)
[2019-04-15 16:00] VITALS: BP 135/86; PULSE 79; RESP 18; TEMP 37.6; O2SAT 96
[2019-04-15 21:01] VITALS: TEMP 36.9
[2019-04-15] MEDS: 0.9% NaCl IVPB Med Flush (250 mL) 100 ML IV (21:37)
[2019-04-15] MEDS: oxyCODONE 5 MG Tablet 10 MG PO (22:45)
[2019-04-16 02:17] VITALS: TEMP 36.8
[2019-04-16] MEDS: Lisinopril 20 MG Tablet PO (06:23)
[2019-04-16] MEDS: Enoxaparin 40 MG/0.4 ML Syringe SC (06:23)
[2019-04-16] MEDS: Bisoprolol Fumarate 5 MG Tablet PO (06:23)
[2019-04-16] MEDS: Levothyroxine 88 MCG Tablet PO (06:24)
[2019-04-16] MEDS: hydroCHLOROthiazide 6.25mg TAB 6.25 MG PO (06:24)
[2019-04-16] MEDS: Acetaminophen 500 MG Tablet 1000 MG PO ×2 (06:24→22:11)
[2019-04-16] MEDS: oxyCODONE 5 MG Tablet 10 MG PO (06:24)
[2019-04-16 06:35] LABS: Bedside Glucose 122 mg/dL (70-110)
[2019-04-16] MEDS: metFORMIN HCl 500 MG Tablet PO ×2 (07:53→17:11)
[2019-04-16] MEDS: Baclofen 10 MG Tablet PO ×3 (07:53→17:11)
[2019-04-16] MEDS: Lidocaine 5% Patch 2 PATCH TOPICAL (09:37)
[2019-04-16] MEDS: traMADol 50 MG Tablet PO (09:53)
[2019-04-16] MEDS: 0.9% NaCl PICC Flush IV ×3 (09:54→22:16)
--- NOTE | 2019-04-16 11:14 | NURSING ---
rash noted with assessment this am. denies any itching. pt just finished with showering. reports of same rash in same areas noted by dr. taylor. oxycillan continues. will assess if worsens after next dose.
[2019-04-16 15:43] VITALS: BP 140/74; PULSE 79; RESP 20; TEMP 36.9; O2SAT 96
[2019-04-16] MEDS: 0.9% NaCl IVPB Med Flush (250 mL) 100 ML IV (22:15)
[2019-04-17] MEDS: 0.9% NaCl PICC Flush IV ×5 (02:05→21:42)
[2019-04-17] MEDS: oxyCODONE 5 MG Tablet 10 MG PO ×3 (02:11→17:33)
[2019-04-17] MEDS: traMADol 50 MG Tablet PO (04:05)
[2019-04-17] MEDS: Lisinopril 20 MG Tablet PO (06:08)
[2019-04-17] MEDS: Levothyroxine 88 MCG Tablet PO (06:08)
[2019-04-17] MEDS: Acetaminophen 500 MG Tablet 1000 MG PO ×3 (06:08→21:41)
[2019-04-17] MEDS: Enoxaparin 40 MG/0.4 ML Syringe SC (06:08)
[2019-04-17] MEDS: hydroCHLOROthiazide 6.25mg TAB 6.25 MG PO (06:09)
[2019-04-17 06:21] LABS: Bedside Glucose 150 mg/dL (70-110)
[2019-04-17] MEDS: Baclofen 10 MG Tablet PO ×3 (07:28→17:33)
[2019-04-17] MEDS: Bisoprolol Fumarate 5 MG Tablet PO (07:28)
[2019-04-17] MEDS: metFORMIN HCl 500 MG Tablet PO ×2 (07:28→17:33)
[2019-04-17] MEDS: Lidocaine 5% Patch 2 PATCH TOPICAL (08:45)
[2019-04-17 09:00] VITALS: PULSE 73; RESP 18; O2SAT 97
--- NOTE | 2019-04-17 10:22 | NURSING ---
DR MARROQUIN UPDATED THAT PT IS TOO LARGE FOR [facility] CLOSED MRI MACHINE. NEW ORDER TO WAIT UNTIL DR BESS REVIEWS CT SCAN TO REALLY SEE IF THERE ARE ANY CHANGES OR IS IT JUST POST SURGICAL CHANGES. WILL CALL HIM ON 04/18
[2019-04-17] MEDS: oxyCODONE 5 MG Tablet 20 MG PO (11:40)
[2019-04-17 15:36] VITALS: BP 150/84; PULSE 74; RESP 18; TEMP 37.2; O2SAT 97
--- NOTE | 2019-04-17 17:02 | NURSING ---
Pt refused to let HOME AIDE do blood sugar check. Requesting pain meds after wheeling himself to fridge and getting 2 puddings. Will medicate
[2019-04-17] MEDS: 0.9% NaCl IVPB Med Flush (250 mL) 100 ML IV (21:42)
[2019-04-18] MEDS: Acetaminophen 500 MG Tablet 1000 MG PO ×3 (05:05→21:00)
[2019-04-18] MEDS: Enoxaparin 40 MG/0.4 ML Syringe SC (05:05)
[2019-04-18] MEDS: Bisoprolol Fumarate 5 MG Tablet PO (05:06)
[2019-04-18] MEDS: hydroCHLOROthiazide 6.25mg TAB 6.25 MG PO (05:06)
[2019-04-18] MEDS: Levothyroxine 88 MCG Tablet PO (05:06)
[2019-04-18] MEDS: Lisinopril 20 MG Tablet PO (05:06)
[2019-04-18] MEDS: Lidocaine 5% Patch 2 PATCH TOPICAL (05:06)
[2019-04-18 06:21] LABS: Bedside Glucose 149 mg/dL (70-110)
--- NOTE | 2019-04-18 07:45 | NURSING ---
Addendum entered by Sunitha Mosher 04/18/19 10:16: returned call but wants surgeon notified. Original Note: Dr Russell paged this AM regarding CT scan results.
[2019-04-18] MEDS: Baclofen 10 MG Tablet PO ×3 (08:43→16:58)
[2019-04-18] MEDS: oxyCODONE 5 MG Tablet 10 MG PO (08:43)
[2019-04-18] MEDS: metFORMIN HCl 500 MG Tablet PO ×2 (08:43→16:58)
[2019-04-18] MEDS: 0.9% NaCl PICC Flush IV ×3 (09:41→21:06)
--- NOTE | 2019-04-18 09:48 | PCM.PN.RX ---
<Sandy Carranza - Last Filed: 04/18/19 09:48> Progress Note - Pharmacy Subjective: TCU April Note Objective: Allergies No Known Allergies Allergy (Verified 02/08/19 18:47) Current Medications Generic Name Dose Route Start Last Admin Trade Name Freq PRN Reason Stop Dose Admin Acetaminophen 1,000 mg 03/17/19 22:00 04/18/19 05:05 Tylenol PO 1,000 mg Q8 ZARI Administration Baclofen 10 mg 03/18/19 07:45 04/18/19 08:43 Lioresal PO 10 mg TIDCM ZARI Administration Bisacodyl 10 mg 03/17/19 21:06 Dulcolax PO DAILY PRN Constipation Bisoprolol Fumarate 5 mg 03/18/19 06:00 04/18/19 05:06 Zebeta PO 5 mg DAILY ZARI Administration Doxepin HCl 25 mg 03/23/19 22:00 04/17/19 21:43 Sinequan PO Not Given QHS ZARI Enoxaparin Sodium 40 mg 03/18/19 06:00 04/18/19 05:05 Lovenox SC 40 mg DAILY@0600 ZARI Administration Heparin Sodium (Beef Lung) 50 units 03/17/19 21:20 04/15/19 06:16 IV 50 units UD PRN Administration HEPARIN FLUSH Hydrochlorothiazide 6.25 mg 03/18/19 06:00 04/18/19 05:06 PO 6.25 mg DAILY ZARI Administration Hydrocortisone 1 applic 03/19/19 14:13 03/21/19 10:39 Hytone TOPICAL 1 applicatio BID PRN PRN Administration TOPICAL IRRITATIONS Protocol Oxacillin Sodium 2 gm/ Sodium 100 mls @ 100 mls/hr 03/17/19 22:00 04/18/19 09:41 Chloride IV 05/09/19 23:59 100 mls/hr Q4 ZARI Administration Sodium Chloride 250 mls @ 15 mls/hr 03/17/19 21:20 04/17/19 23:14 IV 0 mls/hr .[id number] PRN Infusion SALINE FLUSH Levothyroxine Sodium 88 mcg 03/18/19 06:00 04/18/19 05:06 Synthroid PO 88 mcg DAILY@0600 ZARI Administration Lidocaine 2 patch 03/18/19 06:00 04/18/19 05:06 Lidoderm Patch TOPICAL 2 patch DAILY ZARI Administration Protocol Lisinopril 20 mg 03/18/19 06:00 04/18/19 05:06 Zestril PO 20 mg DAILY ZARI Administration Metformin HCl 500 mg 03/18/19 08:00 04/18/19 08:43 Glucophage PO 500 mg BIDCM ZARI Administration Oxycodone HCl 10 mg 03/17/19 21:07 04/18/19 08:43 Oxyir PO 10 mg Q4H PRN Administration SEVERE PAIN (6-10/10) Oxycodone HCl 20 mg 03/23/19 12:12 04/17/19 11:40 Oxyir PO 20 mg DAILY PRN Administration SEVERE PAIN (6-10/10) Polyethylene Glycol 17 gm 03/18/19 06:00 04/18/19 05:03 Miralax PO Not Given DAILY ZARI Senna/Docusate Sodium 2 tablet 03/29/19 17:47 Senokot-S, Trang-Colace PO / BID PRN / Constipation Sodium Chloride 10 - 40 ml 03/17/19 21:20 04/18/19 09:41 IV 30 ml UD PRN Administration PICC FLUSH Tramadol HCl 50 mg 03/17/19 21:06 04/17/19 04:05 Ultram PO 50 mg Q6H PRN PRN Administration MODERATE PAIN (4-5/10) Problem List (Last Updated 12/27/18 @ 07:53 by Ruben Sandoval DO) Abscess in epidural space of lumbar spine (Acute) Lumbar discitis (Acute) Psoas abscess (Acute) Obstructive sleep apnea (Chronic) Hyperlipidemia (Chronic) Hypothyroidism (Chronic) Psoas tendinitis (Chronic) Morbid obesity (Chronic) Headache (Chronic) Osteoarthritis (Chronic) Vital Signs Temp Pulse Resp BP Pulse Ox 98.9 F 74 18 150/84 H 97 04/17/19 15:36 04/17/19 15:36 04/17/19 15:36 04/17/19 15:36 04/17/19 15:36 Oxygen Delivery Method Room Air Weight: 158.445 kg Body Mass Index (BMI) 53.9 Sodium 142 mmol/L (136-145) 04/15/19 06:31 Potassium 4.1 mmol/L (3.5-5.1) 04/15/19 06:31 Chloride 107 mmol/L (98-107) 04/15/19 06:31 Carbon Dioxide 28.0 mmol/L (21.0-32.0) 04/15/19 06:31 7 (5-15) 04/15/19 06:31 BUN 13 mg/dL (7-18) 04/15/19 06:31 0.85 mg/dL (0.70-1.30) 04/15/19 06:31 Est GFR (MDRD) Af Amer 119 mL/min (>60) 04/15/19 06:31 Est GFR (MDRD) Non-Af 99 mL/min (>60) 04/15/19 06:31 15.3 RATIO (10-20) 04/15/19 06:31 Glucose 101 mg/dL (74-106) 04/15/19 06:31 Assessment/Plan: 1. MSSA Bacteremia/Lumber epidural abscess/lumbar discitis: oxacillin 2gm IV Q4H through 05/09/19. ID is consulted and following patient. Please continue to monitor for signs/symptoms of infection. 2. Pain: acetaminophen 1000mg PO Q8H, oxycodone 10mg PO Q4H PRN severe pain (6-10/10), oxycodone 20mg PO daily PRN severe pain (6-10/10) prior to therapy, tramadol 50mg PO Q6H PRN moderate pain (4-5/10). Please continue to monitor for S/S of increased/decreased pain, respiratory depression, and PRN usage. 3. Hypertension: bisoprolol 5mg PO daily, hydrochlorothiazide 6.25 mg PO daily, lisinopril 20mg PO daily. Please continue to monitor BP and HR. 4. Type II diabetes mellitus: metformin 500mg PO BIDCM. Please continue to monitor glucose levels, S/S of hyper or hypoglycemia and renal function. 5. Hypothyroidism: levothyroxine 88mcg PO daily. Last TSH done 02/2019, please continue to monitor. 6. Lower back pain: lidocaine 5% patch 2 patches topically daily. Please continue to monitor for S/S increased/decreased pain. 7. Back spasms: baclofen 10mg PO TIDCM. Please continue to monitor for S/S increased or decreased back pain. 8. DVT prophylaxis: enoxaparin 40mg SC daily. Please continue to monitor for S/S of bleeding, platelets, and renal function. 9. Rash: hydrocortisone 2.5% cream BID PRN. Please continue to monitor. *Psychotropic Medications: doxepin 25mg PO QHS. Per OCT documentation, patient has refused 4/7 last doses. Please consider changing to PRN schedule. Please consider GDR 09/2019. Unnecessary Medications: None *Bowel Regimen: Miralax 17gm PO daily, senna/docusate 2T PO BID PRN constipation, bisacodyl 10mg PO daily PRN constipation. Per OCT documentation, patient has refused all doses of scheduled Miralax. Please consider changing from scheduled daily to PRN if documented bowel movements are adequate. Please continue to monitor for constipation. Date of Note:: 04/18/19 - Provider Comments Provider responsibility: Provider responsible to enter orders to implement recommendations <Enrique Otero Chi - Last Filed: 04/18/19 15:52> Progress Note - Pharmacy Subjective: [] Objective: Allergies No Known Allergies Allergy (Verified 02/08/19 18:47) Current Medications Generic Name Dose Route Start Last Admin Trade Name Freq PRN Reason Stop Dose Admin Acetaminophen 1,000 mg 03/17/19 22:00 04/18/19 13:18 Tylenol PO 1,000 mg Q8 ZARI Administration Baclofen 10 mg 03/18/19 07:45 04/18/19 11:30 Lioresal PO 10 mg TIDCM ZARI Administration Bisacodyl 10 mg 03/17/19 21:06 Dulcolax PO DAILY PRN Constipation Bisoprolol Fumarate 5 mg 03/18/19 06:00 04/18/19 05:06 Zebeta PO 5 mg DAILY ZARI Administration Doxepin HCl 25 mg 03/23/19 22:00 04/17/19 21:43 Sinequan PO Not Given QHS ZARI Enoxaparin Sodium 40 mg 03/18/19 06:00 04/18/19 05:05 Lovenox SC 40 mg DAILY@0600 ZARI Administration Heparin Sodium (Beef Lung) 50 units 03/17/19 21:20 04/15/19 06:16 IV 50 units UD PRN Administration HEPARIN FLUSH Hydrochlorothiazide 6.25 mg 03/18/19 06:00 04/18/19 05:06 PO 6.25 mg DAILY ZARI Administration Hydrocortisone 1 applic 03/19/19 14:13 03/21/19 10:39 Hytone TOPICAL 1 applicatio BID PRN PRN Administration TOPICAL IRRITATIONS Protocol Oxacillin Sodium 2 gm/ Sodium 100 mls @ 100 mls/hr 03/17/19 22:00 04/18/19 14:50 Chloride IV 05/09/19 23:59 Infused Q4 ZARI Infusion Sodium Chloride 250 mls @ 15 mls/hr 03/17/19 21:20 04/17/19 23:14 IV 0 mls/hr .[id number] PRN Infusion SALINE FLUSH Levothyroxine Sodium 88 mcg 03/18/19 06:00 04/18/19 05:06 Synthroid PO 88 mcg DAILY@0600 ZARI Administration Lidocaine 2 patch 03/18/19 06:00 04/18/19 05:06 Lidoderm Patch TOPICAL 2 patch DAILY ZARI Administration Protocol Lisinopril 20 mg 03/18/19 06:00 04/18/19 05:06 Zestril PO 20 mg DAILY ZARI Administration Metformin HCl 500 mg 03/18/19 08:00 04/18/19 08:43 Glucophage PO 500 mg BIDCM ZARI Administration Oxycodone HCl 10 mg 03/17/19 21:07 04/18/19 08:43 Oxyir PO 10 mg Q4H PRN Administration SEVERE PAIN (6-10/10) Oxycodone HCl 20 mg 03/23/19 12:12 04/18/19 11:30 Oxyir PO 20 mg DAILY PRN Administration SEVERE PAIN (6-10/10) Polyethylene Glycol 17 gm 03/18/19 06:00 04/18/19 05:03 Miralax PO Not Given DAILY [facility] Senna/Docusate Sodium 2 tablet 03/29/19 17:47 Senokot-S, Trang-Colace PO BID PRN Constipation Sodium Chloride 10 - 40 ml 03/17/19 21:20 04/18/19 09:41 IV 30 ml UD PRN Administration PICC FLUSH Tramadol HCl 50 mg 03/17/19 21:06 04/17/19 04:05 Ultram PO 50 mg Q6H PRN PRN Administration MODERATE PAIN (4-5/10) Problem List (Last Updated 12/27/18 @ 07:53 by Ruben Sandoval DO) Abscess in epidural space of lumbar spine (Acute) Lumbar discitis (Acute) Psoas abscess (Acute) Obstructive sleep apnea (Chronic) Hyperlipidemia (Chronic) Hypothyroidism (Chronic) Psoas tendinitis (Chronic) Morbid obesity (Chronic) Headache (Chronic) Osteoarthritis (Chronic) Vital Signs Temp Pulse Resp BP Pulse Ox 98.4 F 70 20 H 152/83 H 97 04/18/19 14:58 04/18/19 14:58 04/18/19 14:58 04/18/19 14:58 04/18/19 14:58 Oxygen Delivery Method Room Air Weight: 158.757 kg Body Mass Index (BMI) 53.9 Sodium 142 mmol/L (136-145) 04/15/19 06:31 Potassium 4.1 mmol/L (3.5-5.1) 04/15/19 06:31 Chloride 107 mmol/L (98-107) 04/15/19 06:31 Carbon Dioxide 28.0 mmol/L (21.0-32.0) 04/15/19 06:31 7 (5-15) 04/15/19 06:31 BUN 13 mg/dL (7-18) 04/15/19 06:31 0.85 mg/dL (0.70-1.30) 04/15/19 06:31 Est GFR (MDRD) Af Amer 119 mL/min (>60) 04/15/19 06:31 Est GFR (MDRD) Non-Af 99 mL/min (>60) 04/15/19 06:31 15.3 RATIO (10-20) 04/15/19 06:31 Glucose 101 mg/dL (74-106) 04/15/19 06:31 Assessment/Plan: Psychotropic Medications: Unnecessary Medications: Bowel Regimen: - Provider Comments Provider responsibility: Provider responsible to enter orders to implement recommendations Provider Comments to Recommendations by Pharmacy: Agree
--- NOTE | 2019-04-18 10:26 | NURSING ---
spoke with Dr Neely office, faxed CT scan results. Awaiting return call.
[2019-04-18 11:05] VITALS: TEMP 36.7
[2019-04-18] MEDS: oxyCODONE 5 MG Tablet 20 MG PO (11:30)
[2019-04-18 14:58] VITALS: BP 152/83; PULSE 70; RESP 20; TEMP 36.9; O2SAT 97
[2019-04-18] MEDS: 0.9% NaCl IVPB Med Flush (250 mL) 15 ML IV (21:05)
[2019-04-19] MEDS: Acetaminophen 500 MG Tablet 1000 MG PO ×3 (05:04→21:22)
[2019-04-19] MEDS: Levothyroxine 88 MCG Tablet PO (05:05)
[2019-04-19] MEDS: hydroCHLOROthiazide 6.25mg TAB 6.25 MG PO (05:05)
[2019-04-19] MEDS: Bisoprolol Fumarate 5 MG Tablet PO (05:05)
[2019-04-19] MEDS: Lisinopril 20 MG Tablet PO (05:05)
[2019-04-19] MEDS: Enoxaparin 40 MG/0.4 ML Syringe SC (05:05)
--- NOTE | 2019-04-19 05:08 | NURSING ---
Patient has not complained of extra pain all night. This morning patient rating pain in back a 2 out of 10. Patient states I don't want any oxy this morning. OxyIR has not been given all night. The highest pain rating given has been 2 out of 10. Scheduled Tylenol has been given which has been effective.
[2019-04-19 06:31] LABS: Bedside Glucose 148 mg/dL (70-110)
[2019-04-19] MEDS: Baclofen 10 MG Tablet PO ×3 (08:07→16:49)
[2019-04-19] MEDS: metFORMIN HCl 500 MG Tablet PO ×2 (08:07→16:49)
[2019-04-19] MEDS: Lidocaine 5% Patch 2 PATCH TOPICAL (08:07)
[2019-04-19] MEDS: oxyCODONE 5 MG Tablet 10 MG PO ×2 (08:17→16:48)
[2019-04-19] MEDS: traMADol 50 MG Tablet PO (08:18)
[2019-04-19] MEDS: 0.9% NaCl PICC Flush IV ×4 (10:37→21:19)
[2019-04-19] MEDS: oxyCODONE 5 MG Tablet 20 MG PO (11:35)
--- NOTE | 2019-04-19 12:15 | NURSING ---
Spoke with Dr. Neely's office regarding MRI, requesting MRI be with AND without contrast, order updated, preauth updated, scheduled for MRI at [phone] today
--- NOTE | 2019-04-19 12:17 | PN.ID_ITS ---
Patient Problems: Active and Suspected Problems (Last Updated 12/27/18 @ 07:53 by Ruben Sandoval DO) Abscess in epidural space of lumbar spine (Acute) Lumbar discitis (Acute) Psoas abscess (Acute) Subjective: Frustrated with ongoing pain in back and intermittent progress with therapy. No fever, no rash, no n/v/d. - Physical Exam General: Alert, Cooperative, No apparent distress Lungs: Clear to auscultation, Normal air movement Cardiovascular: Regular rate, Regular Rhythm Abdomen: Soft, Non Tender, Non-Distended Skin: No rashes Vital Signs Temp Pulse Resp BP Pulse Ox 98.4 F 70 20 H 152/83 H 97 04/18/19 14:58 04/18/19 14:58 04/18/19 14:58 04/18/19 14:58 04/18/19 14:58 Oxygen Delivery Method Room Air Weight: 158.757 kg Body Mass Index (BMI) 53.9 Intake and Output for Last 24 Hours 04/17/19 04/18/19 04/19/19 23:59 23:59 23:59 Intake Total 2190.00 / 2190.00 2040 / 2040 819.50 / 819.50 Output Total 720 / 720 800 / 800 Balance 1470.00 / 1470.00 1240 / 1240 819.50 / 819.50 POC Glucose 04/19/19 06:09 POC Glucose 148 H Medical Necessity - Tobacco Use Smoking Status: Never smoker Tobacco Use: Non-smoker Route of nutrition/ use of supplements: [] Nutritional Intake: [] IV Site: [] Villagran Catheter: [] - Assessment/Plan Antibiotics: [] Assessment/Plan: [] Active and Suspected Problems (Last Updated 12/27/18 @ 07:53 by Ruben Sandoval DO) Abscess in epidural space of lumbar spine (Acute) Lumbar discitis (Acute) Psoas abscess (Acute) MSSA bacteremia with epidural abscess, s/p I&D at [facility] 03/08/19. Rash resolved, cont oxacillin. Stop date planned for 05/09/19. Recent CT of L-spine was compared to last CT here from 12/2018. Better comparison would be to imaging from [facility] in February. Recommended sending images to his surgeon for review. May need MRI. Will follow
--- NOTE | 2019-04-19 14:00 | NURSING ---
IV Oxacillin paused for MRI, will restart upon return.
[2019-04-19 16:00] VITALS: BP 137/79; PULSE 75; RESP 18; TEMP 36.4; O2SAT 93
--- NOTE | 2019-04-19 19:52 | NURSING ---
Dr. Otero notified of MRI results. Orders given to send Dr. Neely report of MRI and call Dr. Neely's office in the morning.
[2019-04-19] MEDS: 0.9% NaCl IVPB Med Flush (250 mL) 15 ML IV (21:17)
[2019-04-20 05:07] VITALS: BP 149/78; PULSE 70
[2019-04-20] MEDS: 0.9% NaCl PICC Flush IV ×5 (05:08→22:35)
[2019-04-20] MEDS: Levothyroxine 88 MCG Tablet PO (05:11)
[2019-04-20] MEDS: Bisoprolol Fumarate 5 MG Tablet PO (05:11)
[2019-04-20] MEDS: Lisinopril 20 MG Tablet PO (05:12)
[2019-04-20] MEDS: Acetaminophen 500 MG Tablet 1000 MG PO ×3 (05:12→22:27)
[2019-04-20] MEDS: Enoxaparin 40 MG/0.4 ML Syringe SC (05:12)
[2019-04-20] MEDS: Lidocaine 5% Patch 2 PATCH TOPICAL (05:12)
[2019-04-20] MEDS: hydroCHLOROthiazide 6.25mg TAB 6.25 MG PO (05:13)
[2019-04-20] MEDS: oxyCODONE 5 MG Tablet 10 MG PO ×2 (05:18→22:26)
[2019-04-20 06:25] LABS: Bedside Glucose 122 mg/dL (70-110)
[2019-04-20] MEDS: Baclofen 10 MG Tablet PO ×3 (07:33→17:25)
[2019-04-20] MEDS: metFORMIN HCl 500 MG Tablet PO ×2 (07:33→17:25)
--- NOTE | 2019-04-20 09:54 | NURSING ---
Spoke with Dr. Neely's office, set up appointment tomorrow at 1545, pt states will be able to take him to this, all information supplied to pt. Dr. Neely's office requesting CD of MRI to be sent with pt, requested from medical record management. Dr. Russell made aware of MRI results, states that some of these changes can last for some time after treatment, it will be necessary to compare to previous imaging to determine the significance of the findings
[2019-04-20] MEDS: oxyCODONE 5 MG Tablet 20 MG PO (10:36)
--- NOTE | 2019-04-20 14:11 | CASEMGMT ---
Social Work Spoke with nursing about patient's status. Patient has a f/u appt tomorrow to compare images of spine and determine the progress and if further treatment is needed. Will f/u with nursing about those results. At this time, no changes in IV ATBs will be made. Pt continuing to work with therapy on more improvements. Will continue to follow for discharge planning. Andria Dobbins, TREE BELLW
[2019-04-20 15:37] VITALS: BP 152/67; PULSE 74; RESP 18; TEMP 36.9; O2SAT 93
[2019-04-20] MEDS: 0.9% NaCl IVPB Med Flush (250 mL) 15 ML IV (22:29)
[2019-04-21] MEDS: Acetaminophen 500 MG Tablet 1000 MG PO ×3 (05:27→22:37)
[2019-04-21] MEDS: Enoxaparin 40 MG/0.4 ML Syringe SC (05:28)
[2019-04-21] MEDS: Bisoprolol Fumarate 5 MG Tablet PO (05:28)
[2019-04-21] MEDS: Lisinopril 20 MG Tablet PO (05:28)
[2019-04-21] MEDS: hydroCHLOROthiazide 6.25mg TAB 6.25 MG PO (05:28)
[2019-04-21] MEDS: Levothyroxine 88 MCG Tablet PO (05:29)
[2019-04-21 05:56] LABS: Bedside Glucose 168 mg/dL (70-110)
[2019-04-21] MEDS: Baclofen 10 MG Tablet PO ×3 (07:02→18:30)
[2019-04-21] MEDS: Lidocaine 5% Patch 2 PATCH TOPICAL (07:03)
[2019-04-21] MEDS: oxyCODONE 5 MG Tablet 10 MG PO ×2 (07:03→22:36)
[2019-04-21] MEDS: traMADol 50 MG Tablet PO (09:40)
[2019-04-21] MEDS: metFORMIN HCl 500 MG Tablet PO ×2 (09:40→18:30)
--- NOTE | 2019-04-21 11:52 | CASEMGMT ---
Insurance: continued stay review sent through [facility] Reviewlink. auth # [id number]. Continued stay approved. Next update due 04/28/19.
[2019-04-21] MEDS: oxyCODONE 5 MG Tablet 20 MG PO (13:21)
[2019-04-21] MEDS: 0.9% NaCl PICC Flush IV ×2 (13:22→22:36)
--- NOTE | 2019-04-21 14:29 | NURSING ---
Patient off unit. Going to appointment in [place].
[2019-04-21 16:00] VITALS: BP 144/77; PULSE 76; RESP 20; TEMP 37.6; O2SAT 98
--- NOTE | 2019-04-21 18:32 | NURSING ---
Patient returned from appointment with Dr. Taliwal. [place] at this time.
[2019-04-22] MEDS: 0.9% NaCl PICC Flush IV ×6 (02:43→18:19)
[2019-04-22 04:59] LABS: Absolute Lymphocyte Count 1.07 X10^3/uL (0.83-4.51); Absolute Neutrophil Count 4.8 X10^3/uL (2.0-7.7); Basophil# 0.02 X10^3/uL; Basophil% 0.3 % (0-1); Eosinophils% 5.7 % (0-5); Hematocrit 38.7 % (40-54); Hemoglobin 12.8 g/dL (13.0-16.5); Lymphocyte # 1.07 X10^3/ul (4.0); Lymphocyte % 15.3 % (19-41); Mean Corp Hgb Conc 33.1 g/dL (32-36); Mean Corpuscular Hgb 31.9 pg (27.0-32.0); Mean Corpuscular Volume 96.5 fL (80-94); Mean Platelet Vol. 9.5 fl (6.2-12.0); Monocyte# 0.72 X10^3/uL; Monocyte% 10.3 % (0-10); NRBC Flagged by Analyzer 0 % (0-5); Neutrophil # 4.75 X10^3/uL (2.7-7.7); Platelet Count 161 K/mm3 (150-450); RBC Distribution Width CV 15.2 % (11.6-14.6); RBC Distribution Width SD 54.5 fl (35.1-43.9); Red Blood Count 4.01 M/mm3 (4.6-6.2)
[2019-04-22 05:10] LABS: Anion Gap 6 (5-15); BUN 15 mg/dL (7-18); BUN/Creat Ratio 14.9 RATIO (10-20); Calcium,Total 8.6 mg/dL (8.5-10.1); Chloride 105 mmol/L (98-107); Creatinine, Serum 1.01 mg/dL (0.70-1.30); EST Glomerular Filtration Rate 81 mL/min (>60); Est Glom Filt Rate - Afr Amer 97 mL/min (>60); Estimated Creatinine Clearance 77.13 ml/min; Glucose 146 mg/dL (74-106); Sodium Level 142 mmol/L (136-145)
[2019-04-22] MEDS: oxyCODONE 5 MG Tablet 10 MG PO (06:39)
[2019-04-22] MEDS: Levothyroxine 88 MCG Tablet PO (06:40)
[2019-04-22] MEDS: Bisoprolol Fumarate 5 MG Tablet PO (06:40)
[2019-04-22] MEDS: hydroCHLOROthiazide 6.25mg TAB 6.25 MG PO (06:40)
[2019-04-22 06:41] LABS: Bedside Glucose 149 mg/dL (70-110)
[2019-04-22] MEDS: Acetaminophen 500 MG Tablet 1000 MG PO ×3 (06:41→21:29)
[2019-04-22] MEDS: Lisinopril 20 MG Tablet PO (06:41)
[2019-04-22] MEDS: Enoxaparin 40 MG/0.4 ML Syringe SC (06:45)
[2019-04-22] MEDS: Lidocaine 5% Patch 2 PATCH TOPICAL (07:08)
[2019-04-22] MEDS: metFORMIN HCl 500 MG Tablet PO ×2 (08:32→17:58)
[2019-04-22] MEDS: Baclofen 10 MG Tablet PO ×3 (08:32→17:57)
[2019-04-22 16:00] VITALS: BP 153/73; PULSE 73; RESP 18; TEMP 36.4; O2SAT 98
[2019-04-22] MEDS: traMADol 50 MG Tablet PO (21:35)
[2019-04-23] MEDS: 0.9% NaCl IVPB Med Flush (250 mL) 100 ML IV ×2 (01:35→21:20)
[2019-04-23] MEDS: 0.9% NaCl PICC Flush IV ×5 (01:36→21:21)
[2019-04-23] MEDS: Acetaminophen 500 MG Tablet 1000 MG PO ×3 (06:00→21:13)
[2019-04-23] MEDS: Bisoprolol Fumarate 5 MG Tablet PO (06:00)
[2019-04-23] MEDS: Lisinopril 20 MG Tablet PO (06:00)
[2019-04-23] MEDS: Levothyroxine 88 MCG Tablet PO (06:00)
[2019-04-23] MEDS: Enoxaparin 40 MG/0.4 ML Syringe SC (06:01)
[2019-04-23] MEDS: hydroCHLOROthiazide 6.25mg TAB 6.25 MG PO (06:01)
[2019-04-23 06:26] LABS: Bedside Glucose 117 mg/dL (70-110)
[2019-04-23] MEDS: metFORMIN HCl 500 MG Tablet PO ×2 (07:33→17:41)
[2019-04-23] MEDS: Baclofen 10 MG Tablet PO ×3 (07:34→17:41)
[2019-04-23] MEDS: oxyCODONE 5 MG Tablet 10 MG PO ×2 (07:35→12:10)
[2019-04-23] MEDS: Lidocaine 5% Patch 2 PATCH TOPICAL (08:30)
[2019-04-23 10:00] VITALS: RESP 18
[2019-04-23 16:00] VITALS: BP 141/84; PULSE 64; RESP 20; TEMP 36.6; O2SAT 94
[2019-04-24] MEDS: Acetaminophen 500 MG Tablet 1000 MG PO ×3 (05:49→21:53)
[2019-04-24] MEDS: hydroCHLOROthiazide 6.25mg TAB 6.25 MG PO (05:49)
[2019-04-24] MEDS: Lisinopril 20 MG Tablet PO (05:50)
[2019-04-24] MEDS: Bisoprolol Fumarate 5 MG Tablet PO (05:50)
[2019-04-24] MEDS: Enoxaparin 40 MG/0.4 ML Syringe SC (05:50)
[2019-04-24] MEDS: Levothyroxine 88 MCG Tablet PO (05:50)
[2019-04-24] MEDS: oxyCODONE 5 MG Tablet 10 MG PO (09:16)
[2019-04-24] MEDS: Baclofen 10 MG Tablet PO ×3 (09:18→17:15)
[2019-04-24] MEDS: Lidocaine 5% Patch 2 PATCH TOPICAL (09:18)
[2019-04-24] MEDS: metFORMIN HCl 500 MG Tablet PO ×2 (09:18→17:15)
[2019-04-24] MEDS: oxyCODONE 5 MG Tablet 20 MG PO (11:53)
--- NOTE | 2019-04-24 14:07 | PCM.PN.ID ---
Patient Problems: Active and Suspected Problems (Last Updated 12/27/18 @ 07:53 by Ruben Sandoval DO) Abscess in epidural space of lumbar spine (Acute) Lumbar discitis (Acute) Psoas abscess (Acute) Subjective: Pain improved, no fever, feeling better - Physical Exam General: Alert, Cooperative, No apparent distress Lungs: Clear to auscultation, Normal air movement Cardiovascular: Regular rate, Regular Rhythm Abdomen: Soft, Non Tender, Non-Distended, Obese Skin: No rashes Vital Signs Temp Pulse Resp BP Pulse Ox 97.9 F 64 20 H 141/84 H 94 04/23/19 16:00 04/23/19 16:00 04/23/19 16:00 04/23/19 16:00 04/23/19 16:00 Oxygen Delivery Method Room Air Weight: 158.757 kg Body Mass Index (BMI) 53.9 Intake and Output for Last 24 Hours 04/22/19 04/23/19 04/24/19 23:59 23:59 23:59 Intake Total 2040 / 2040 1979 / 1979 960 / 960 Output Total 500 / 500 Balance 1540 / 1540 1979 960 / 960 Medical Necessity - Tobacco Use Smoking Status: Never smoker Tobacco Use: Non-smoker Route of nutrition/ use of supplements: [] Nutritional Intake: [] IV Site: [] Villagran Catheter: [] - Assessment/Plan Antibiotics: [] Assessment/Plan: [] Active and Suspected Problems (Last Updated 12/27/18 @ 07:53 by Ruben Sandoval DO) Abscess in epidural space of lumbar spine (Acute) Lumbar discitis (Acute) Psoas abscess (Acute) MSSA bacteremia with epidural abscess, s/p I&D at [facility] 03/08/19. Rash resolved, cont oxacillin. Stop date planned for 05/09/19. Recent appt with surgeon was reassuring per his report. Will follow
[2019-04-24] MEDS: 0.9% NaCl PICC Flush IV ×2 (15:32→21:45)
[2019-04-24 16:00] VITALS: BP 156/69; PULSE 76; RESP 18; TEMP 36.2; O2SAT 96
[2019-04-24] MEDS: 0.9% NaCl IVPB Med Flush (250 mL) 15 ML IV (21:45)
[2019-04-25] MEDS: Lidocaine 5% Patch 2 PATCH TOPICAL (05:11)
[2019-04-25] MEDS: Enoxaparin 40 MG/0.4 ML Syringe SC (05:15)
[2019-04-25] MEDS: oxyCODONE 5 MG Tablet 10 MG PO (05:15)
[2019-04-25] MEDS: Acetaminophen 500 MG Tablet 1000 MG PO ×3 (05:15→22:12)
[2019-04-25] MEDS: Lisinopril 20 MG Tablet PO (05:16)
[2019-04-25] MEDS: Bisoprolol Fumarate 5 MG Tablet PO (05:16)
[2019-04-25] MEDS: hydroCHLOROthiazide 6.25mg TAB 6.25 MG PO (05:16)
[2019-04-25] MEDS: Levothyroxine 88 MCG Tablet PO (05:16)
[2019-04-25 06:40] LABS: Bedside Glucose 132 mg/dL (70-110)
[2019-04-25] MEDS: 0.9% NaCl PICC Flush IV ×2 (06:43→21:47)
--- NOTE | 2019-04-25 08:38 | NURSING ---
New order for cathflo x1 to PICC line, may repeat x1 if needed.
[2019-04-25] MEDS: metFORMIN HCl 500 MG Tablet PO ×2 (09:26→18:12)
[2019-04-25] MEDS: Baclofen 10 MG Tablet PO ×3 (09:26→18:12)
--- NOTE | 2019-04-25 09:50 | NURSING ---
Was able to flush both lumens of PICC line and get blood return.
[2019-04-25 16:00] VITALS: BP 132/71; PULSE 71; RESP 18; TEMP 37.1; O2SAT 96
--- NOTE | 2019-04-25 22:00 | NURSING ---
RN into initiate Oxacillin. RN to asses PICC drsg. Pt stated, Look at this, while pulling on edge of PICC drsg detaching drsg further from skin. RN advised pt not to touch PICC drsg d/t risk for infection. RN advised pt not to pull on drsg, removing drsg the from skin. Pt verbalized understanding. RN changed PICC drsg at this time and as applied stocket to aide in securing drsg. Will continue to monitor.
[2019-04-25] MEDS: 0.9% NaCl IVPB Med Flush (250 mL) 100 ML IV (22:12)
[2019-04-26] MEDS: 0.9% NaCl PICC Flush IV ×4 (02:03→21:13)
[2019-04-26] MEDS: Bisoprolol Fumarate 5 MG Tablet PO (05:13)
[2019-04-26] MEDS: Enoxaparin 40 MG/0.4 ML Syringe SC (05:13)
[2019-04-26] MEDS: Lisinopril 20 MG Tablet PO (05:13)
[2019-04-26] MEDS: Levothyroxine 88 MCG Tablet PO (05:13)
[2019-04-26] MEDS: hydroCHLOROthiazide 6.25mg TAB 6.25 MG PO (05:13)
[2019-04-26] MEDS: Acetaminophen 500 MG Tablet 1000 MG PO ×3 (05:13→21:14)
[2019-04-26] MEDS: oxyCODONE 5 MG Tablet 10 MG PO ×3 (05:18→21:19)
[2019-04-26 06:10] LABS: Bedside Glucose 157 mg/dL (70-110)
[2019-04-26] MEDS: metFORMIN HCl 500 MG Tablet PO ×2 (08:01→17:25)
[2019-04-26] MEDS: Baclofen 10 MG Tablet PO ×3 (08:01→17:25)
[2019-04-26 16:00] VITALS: BP 132/74; PULSE 65; RESP 20; TEMP 36.7; O2SAT 96
[2019-04-26] MEDS: 0.9% NaCl IVPB Med Flush (250 mL) 100 ML IV (21:12)
[2019-04-27] MEDS: oxyCODONE 5 MG Tablet 10 MG PO ×3 (01:33→21:24)
[2019-04-27] MEDS: 0.9% NaCl PICC Flush IV ×6 (01:34→21:10)
[2019-04-27] MEDS: Bisoprolol Fumarate 5 MG Tablet PO (05:50)
[2019-04-27] MEDS: Enoxaparin 40 MG/0.4 ML Syringe SC (05:50)
[2019-04-27] MEDS: Lisinopril 20 MG Tablet PO (05:50)
[2019-04-27] MEDS: Acetaminophen 500 MG Tablet 1000 MG PO ×3 (05:51→21:09)
[2019-04-27] MEDS: Levothyroxine 88 MCG Tablet PO (05:51)
[2019-04-27] MEDS: hydroCHLOROthiazide 6.25mg TAB 6.25 MG PO (05:51)
[2019-04-27 06:45] LABS: Bedside Glucose 133 mg/dL (70-110)
[2019-04-27] MEDS: metFORMIN HCl 500 MG Tablet PO ×2 (08:26→17:58)
[2019-04-27] MEDS: Baclofen 10 MG Tablet PO ×3 (08:27→17:58)
[2019-04-27] MEDS: oxyCODONE 5 MG Tablet 20 MG PO (11:37)
[2019-04-27 15:31] VITALS: BP 149/73; PULSE 66; RESP 16; TEMP 36.7; O2SAT 96
[2019-04-27] MEDS: 0.9% NaCl IVPB Med Flush (250 mL) 100 ML IV (21:09)
[2019-04-28] MEDS: 0.9% NaCl PICC Flush IV ×6 (01:47→20:55)
[2019-04-28] MEDS: Levothyroxine 88 MCG Tablet PO (06:35)
[2019-04-28] MEDS: Bisoprolol Fumarate 5 MG Tablet PO (06:35)
[2019-04-28] MEDS: hydroCHLOROthiazide 6.25mg TAB 6.25 MG PO (06:35)
[2019-04-28] MEDS: Acetaminophen 500 MG Tablet 1000 MG PO ×3 (06:35→21:02)
[2019-04-28] MEDS: Lisinopril 20 MG Tablet PO (06:35)
[2019-04-28 06:36] LABS: Bedside Glucose 143 mg/dL (70-110)
[2019-04-28] MEDS: Enoxaparin 40 MG/0.4 ML Syringe SC (06:37)
[2019-04-28] MEDS: Baclofen 10 MG Tablet PO ×3 (08:06→16:36)
[2019-04-28] MEDS: metFORMIN HCl 500 MG Tablet PO ×2 (08:06→16:35)
[2019-04-28] MEDS: oxyCODONE 5 MG Tablet 20 MG PO (08:07)
--- NOTE | 2019-04-28 12:19 | CASEMGMT ---
Insurance: Continued stay review sent through [facility] reviewlink. Continued stay approved. Next update due 05/05/19. Auth # [id number].
[2019-04-28 15:43] VITALS: BP 133/71; PULSE 78; RESP 18; TEMP 36.2; O2SAT 95
--- NOTE | 2019-04-28 17:02 | CHAPLAIN ---
Type of Pastoral Visit ___ Initial Visit _x__ Follow-up Visit ___ On-call Visit ___ General Patient Visit ___ Spiritual Assessment ___ Family Conference ___ Bereavement ___ Rapid Response ___ Code Blue ___ Other (describe below) Pastoral Care Referral From _x__ Patient ___ Family ___ Nurse ___ Physician ___ Senior Front End Engineer ___ Supervisor Roller Shop ___ Other (describe below) Sacrament/Intervention _x__ Active listening ___ Anointing ___ Anabaptism ___ Bereavement ___ Communion _x__ Irish exploration ___ _x__ Life review _x__ Prayer ___ Reconciliation ___ Sacrament of Sick _x__ Supportive presence ___ Wedding ___ Other (describe below) Pastoral Comments
--- NOTE | 2019-04-28 18:28 | NURSING ---
Addendum entered by Claudia Guevara 04/28/19 20:25: This nurse was able to flush both lumens and get a good blood return from both. Diesel Engine Fitter notified no need for cathflo at this time. Original Note: unable to flush white port and cath flow ordered. rn production welding supervisor aware and will come up after report
[2019-04-28] MEDS: 0.9% NaCl IVPB Med Flush (250 mL) 100 ML IV (20:54)
[2019-04-29] MEDS: oxyCODONE 5 MG Tablet 10 MG PO (02:55)
[2019-04-29 05:05] LABS: Absolute Lymphocyte Count 0.92 X10^3/uL (0.83-4.51); Absolute Neutrophil Count 4.3 X10^3/uL (2.0-7.7); Basophil# 0.03 X10^3/uL; Basophil% 0.5 % (0-1); Eosinophil# 0.48 X10^3/uL; Eosinophils% 7.4 % (0-5); Hematocrit 39.3 % (40-54); Hemoglobin 12.7 g/dL (13.0-16.5); Lymphocyte # 0.92 X10^3/ul (4.0); Lymphocyte % 14.2 % (19-41); Mean Corp Hgb Conc 32.3 g/dL (32-36); Mean Corpuscular Hgb 31.9 pg (27.0-32.0); Mean Corpuscular Volume 98.7 fL (80-94); Monocyte# 0.69 X10^3/uL; Monocyte% 10.6 % (0-10); NRBC Flagged by Analyzer 0 % (0-5); Neutrophil # 4.33 X10^3/uL (2.7-7.7); Neutrophil % 66.8 % (47-70); Platelet Count 180 K/mm3 (150-450); RBC Distribution Width CV 15.2 % (11.6-14.6); RBC Distribution Width SD 55.1 fl (35.1-43.9); Red Blood Count 3.98 M/mm3 (4.6-6.2); White Blood Count 6.5 K/mm3 (4.4-11.0)
[2019-04-29 05:28] LABS: Anion Gap 5 (5-15); BUN 13 mg/dL (7-18); BUN/Creat Ratio 13.7 RATIO (10-20); Calcium,Total 8.5 mg/dL (8.5-10.1); Chloride 108 mmol/L (98-107); Creatinine, Serum 0.95 mg/dL (0.70-1.30); EST Glomerular Filtration Rate 87 mL/min (>60); Est Glom Filt Rate - Afr Amer 105 mL/min (>60); Glucose 127 mg/dL (74-106); Potassium 4.3 mmol/L (3.5-5.1); Sodium Level 143 mmol/L (136-145)
[2019-04-29] MEDS: 0.9% NaCl PICC Flush IV ×5 (06:14→21:48)
[2019-04-29] MEDS: Acetaminophen 500 MG Tablet 1000 MG PO ×3 (06:14→21:41)
[2019-04-29] MEDS: Bisoprolol Fumarate 5 MG Tablet PO (06:15)
[2019-04-29] MEDS: Enoxaparin 40 MG/0.4 ML Syringe SC (06:15)
[2019-04-29] MEDS: hydroCHLOROthiazide 6.25mg TAB 6.25 MG PO (06:15)
[2019-04-29] MEDS: Lisinopril 20 MG Tablet PO (06:15)
[2019-04-29] MEDS: Levothyroxine 88 MCG Tablet PO (06:15)
[2019-04-29 06:31] VITALS: BP 159/78; PULSE 70
[2019-04-29 06:50] LABS: Bedside Glucose 155 mg/dL (70-110)
[2019-04-29] MEDS: metFORMIN HCl 500 MG Tablet PO ×2 (08:49→18:04)
[2019-04-29] MEDS: Baclofen 10 MG Tablet PO ×3 (08:49→18:04)
[2019-04-29] MEDS: oxyCODONE 5 MG Tablet 20 MG PO (11:52)
[2019-04-29 15:56] VITALS: BP 150/84; PULSE 73; RESP 18; TEMP 36.6; O2SAT 93
[2019-04-29] MEDS: 0.9% NaCl IVPB Med Flush (250 mL) 15 ML IV (21:47)
[2019-04-30] MEDS: oxyCODONE 5 MG Tablet 10 MG PO ×2 (03:03→13:58)
[2019-04-30 05:39] VITALS: BP 159/70; PULSE 72
[2019-04-30] MEDS: 0.9% NaCl PICC Flush IV ×5 (05:46→21:39)
[2019-04-30] MEDS: hydroCHLOROthiazide 6.25mg TAB 6.25 MG PO (05:47)
[2019-04-30] MEDS: Enoxaparin 40 MG/0.4 ML Syringe SC (05:47)
[2019-04-30] MEDS: Lisinopril 20 MG Tablet PO (05:48)
[2019-04-30] MEDS: Levothyroxine 88 MCG Tablet PO (05:48)
[2019-04-30] MEDS: Acetaminophen 500 MG Tablet 1000 MG PO ×3 (05:48→21:42)
[2019-04-30] MEDS: Bisoprolol Fumarate 5 MG Tablet PO (05:49)
[2019-04-30 06:51] LABS: Bedside Glucose 169 mg/dL (70-110)
[2019-04-30] MEDS: metFORMIN HCl 500 MG Tablet PO ×2 (07:33→17:47)
[2019-04-30] MEDS: Baclofen 10 MG Tablet PO ×3 (07:33→17:47)
[2019-04-30 16:00] VITALS: BP 157/75; PULSE 69; RESP 18; TEMP 37.2; O2SAT 95
[2019-04-30] MEDS: 0.9% NaCl IVPB Med Flush (250 mL) 15 ML IV (21:41)
[2019-05-01] MEDS: oxyCODONE 5 MG Tablet 10 MG PO ×2 (01:20→19:44)
[2019-05-01 05:02] VITALS: BP 174/85; PULSE 71
[2019-05-01] MEDS: Acetaminophen 500 MG Tablet 1000 MG PO ×3 (05:02→21:48)
[2019-05-01] MEDS: Lisinopril 20 MG Tablet PO (05:02)
[2019-05-01] MEDS: Levothyroxine 88 MCG Tablet PO (05:03)
[2019-05-01] MEDS: Bisoprolol Fumarate 5 MG Tablet PO (05:03)
[2019-05-01] MEDS: hydroCHLOROthiazide 6.25mg TAB 6.25 MG PO (05:03)
[2019-05-01] MEDS: Enoxaparin 40 MG/0.4 ML Syringe SC (05:03)
[2019-05-01 06:10] LABS: Bedside Glucose 145 mg/dL (70-110)
[2019-05-01] MEDS: Baclofen 10 MG Tablet PO ×3 (10:10→17:57)
[2019-05-01] MEDS: oxyCODONE 5 MG Tablet 20 MG PO (11:56)
[2019-05-01] MEDS: metFORMIN HCl 500 MG Tablet PO ×2 (11:56→17:57)
[2019-05-01] MEDS: 0.9% NaCl PICC Flush IV ×3 (13:58→21:48)
[2019-05-01 15:38] VITALS: BP 142/72; PULSE 74; RESP 18; TEMP 36.7; O2SAT 96
[2019-05-01] MEDS: 0.9% NaCl IVPB Med Flush (250 mL) 100 ML IV (21:48)
[2019-05-02] MEDS: 0.9% NaCl PICC Flush IV ×5 (02:23→17:59)
[2019-05-02] MEDS: oxyCODONE 5 MG Tablet 10 MG PO (02:27)
[2019-05-02 06:26] LABS: Bedside Glucose 114 mg/dL (70-110)
[2019-05-02] MEDS: Bisoprolol Fumarate 5 MG Tablet PO (06:38)
[2019-05-02] MEDS: Lisinopril 20 MG Tablet PO (06:38)
[2019-05-02] MEDS: Acetaminophen 500 MG Tablet 1000 MG PO ×3 (06:38→21:18)
[2019-05-02] MEDS: hydroCHLOROthiazide 6.25mg TAB 6.25 MG PO (06:38)
[2019-05-02] MEDS: Levothyroxine 88 MCG Tablet PO (06:38)
[2019-05-02] MEDS: Enoxaparin 40 MG/0.4 ML Syringe SC (06:38)
[2019-05-02] MEDS: Baclofen 10 MG Tablet PO ×3 (08:38→17:59)
[2019-05-02] MEDS: metFORMIN HCl 500 MG Tablet PO ×2 (08:38→17:59)
--- NOTE | 2019-05-02 11:30 | CASEMGMT ---
Social Work Spoke with patient about discharge plans. Pt agrees with IDT he is doing well and back to baseline. Patient is ready to discharge home once IVs are completed 05/10. NRD with insurance is 05/05. Will await outcome. Andria Dobbins, COLD WORKING INSPECTOR WASHER AND CRUSHER TENDER
[2019-05-02] MEDS: oxyCODONE 5 MG Tablet 20 MG PO (13:03)
[2019-05-02 15:21] VITALS: BP 135/68; PULSE 69; RESP 18; TEMP 37; O2SAT 93
[2019-05-03] MEDS: Enoxaparin 40 MG/0.4 ML Syringe SC (05:25)
[2019-05-03] MEDS: Lisinopril 20 MG Tablet PO (05:25)
[2019-05-03] MEDS: Acetaminophen 500 MG Tablet 1000 MG PO ×3 (05:25→20:14)
[2019-05-03] MEDS: Bisoprolol Fumarate 5 MG Tablet PO (05:25)
[2019-05-03] MEDS: hydroCHLOROthiazide 6.25mg TAB 6.25 MG PO (05:25)
[2019-05-03] MEDS: Levothyroxine 88 MCG Tablet PO (05:25)
[2019-05-03] MEDS: 0.9% NaCl IVPB Med Flush (250 mL) 15 ML IV (05:26)
[2019-05-03 06:26] LABS: Bedside Glucose 126 mg/dL (70-110)
[2019-05-03] MEDS: Baclofen 10 MG Tablet PO ×3 (07:42→17:42)
[2019-05-03] MEDS: metFORMIN HCl 500 MG Tablet PO ×2 (07:42→17:42)
[2019-05-03] MEDS: 0.9% NaCl PICC Flush IV ×4 (10:20→22:10)
[2019-05-03] MEDS: oxyCODONE 5 MG Tablet 20 MG PO (11:53)
[2019-05-03 16:00] VITALS: BP 143/74; PULSE 71; RESP 18; TEMP 36.6; O2SAT 94
[2019-05-03] MEDS: oxyCODONE 5 MG Tablet 10 MG PO (20:12)
[2019-05-04] MEDS: Lisinopril 20 MG Tablet PO (04:59)
[2019-05-04] MEDS: Acetaminophen 500 MG Tablet 1000 MG PO ×3 (04:59→21:40)
[2019-05-04] MEDS: Levothyroxine 88 MCG Tablet PO (04:59)
[2019-05-04] MEDS: Enoxaparin 40 MG/0.4 ML Syringe SC (04:59)
[2019-05-04] MEDS: hydroCHLOROthiazide 6.25mg TAB 6.25 MG PO (05:00)
[2019-05-04] MEDS: Bisoprolol Fumarate 5 MG Tablet PO (05:00)
[2019-05-04] MEDS: 0.9% NaCl IVPB Med Flush (250 mL) 100 ML IV (06:03)
[2019-05-04] MEDS: 0.9% NaCl PICC Flush IV ×6 (06:04→21:41)
[2019-05-04 06:31] LABS: Bedside Glucose 142 mg/dL (70-110)
[2019-05-04] MEDS: Baclofen 10 MG Tablet PO ×3 (08:30→17:46)
[2019-05-04] MEDS: metFORMIN HCl 500 MG Tablet PO ×2 (08:30→17:47)
[2019-05-04] MEDS: traMADol 50 MG Tablet PO (08:32)
[2019-05-04] MEDS: oxyCODONE 5 MG Tablet 20 MG PO (12:21)
[2019-05-04 15:51] VITALS: BP 149/74; PULSE 69; RESP 20; TEMP 36.7; O2SAT 95
--- NOTE | 2019-05-04 16:25 | CHAPLAIN ---
patient saw this rooming house inspector in hallway yesterday and asked for a visit; pt had a question about spiritual matters which was discussed with this rooming house inspector
[2019-05-05] MEDS: 0.9% NaCl PICC Flush IV ×6 (01:50→21:33)
[2019-05-05] MEDS: Lisinopril 20 MG Tablet PO (05:41)
[2019-05-05] MEDS: Bisoprolol Fumarate 5 MG Tablet PO (05:41)
[2019-05-05] MEDS: hydroCHLOROthiazide 6.25mg TAB 6.25 MG PO (05:41)
[2019-05-05] MEDS: Levothyroxine 88 MCG Tablet PO (05:41)
[2019-05-05] MEDS: Acetaminophen 500 MG Tablet 1000 MG PO ×3 (05:41→21:32)
[2019-05-05] MEDS: Enoxaparin 40 MG/0.4 ML Syringe SC (05:42)
[2019-05-05] MEDS: 0.9% NaCl IVPB Med Flush (250 mL) 15 ML IV (05:43)
[2019-05-05 06:36] LABS: Bedside Glucose 197 mg/dL (70-110)
[2019-05-05] MEDS: metFORMIN HCl 500 MG Tablet PO ×2 (08:11→18:12)
[2019-05-05] MEDS: Baclofen 10 MG Tablet PO ×3 (08:11→18:32)
[2019-05-05] MEDS: oxyCODONE 5 MG Tablet 10 MG PO (08:11)
--- NOTE | 2019-05-05 10:11 | NURSING ---
pt called nurse to room, pt had picc drsg off & picc line insertion site exposed. Dressing changed immediately per sterile protocol. both lines flushed with good blood returns. Expressed the importance of leaving picc drsg alone d/t high risk of infection. pt verbalized understanding.
--- NOTE | 2019-05-05 11:24 | PCM.PN.ID ---
Patient Problems: Active and Suspected Problems (Last Updated 12/27/18 @ 07:53 by Ruben Sandoval DO) Abscess in epidural space of lumbar spine (Acute) Lumbar discitis (Acute) Psoas abscess (Acute) Subjective: One episode of loose stool yesterday AM and again this AM. No fever, no abd pain. - Physical Exam General: Alert, Cooperative, No apparent distress Lungs: Clear to auscultation, Normal air movement Cardiovascular: Regular rate, Regular Rhythm Abdomen: Soft, Non Tender, Non-Distended Skin: No rashes Vital Signs Temp Pulse Resp BP Pulse Ox 98.0 F 69 20 H 149/74 H 95 05/04/19 15:51 05/04/19 15:51 05/04/19 15:51 05/04/19 15:51 05/04/19 15:51 Oxygen Delivery Method Room Air Weight: 161.592 kg Body Mass Index (BMI) 53.9 Intake and Output for Last 24 Hours 05/03/19 05/04/19 05/05/19 23:59 23:59 23:59 Intake Total 2473.00 / 2473.00 2473.33 / 2473.33 574.75 / 574.75 Output Total 850 / 850 Balance 2473.00 / 2473.00 1623.33 / 1623.33 574.75 / 574.75 POC Glucose 05/05/19 06:17 POC Glucose 197 H Medical Necessity - Tobacco Use Smoking Status: Never smoker Tobacco Use: Non-smoker Route of nutrition/ use of supplements: [] Nutritional Intake: [] IV Site: [] Villagran Catheter: [] - Assessment/Plan Antibiotics: [] Assessment/Plan: [] Active and Suspected Problems (Last Updated 12/27/18 @ 07:53 by Ruben Sandoval DO) Abscess in epidural space of lumbar spine (Acute) Lumbar discitis (Acute) Psoas abscess (Acute) MSSA bacteremia with epidural abscess, s/p I&D at [facility] 03/08/19. Rash resolved, cont oxacillin. Stop date planned for 05/09/19. Recent appt with surgeon was reassuring per his report. Will follow
--- NOTE | 2019-05-05 13:55 | CASEMGMT ---
Social Work Insurance issued LCD 05/10, DC 05/11 - IVS are done 05/09 and pt would like to DC home 05/10 as planned. Denies any needs. Plan: DC home with 05/10. Andria Dobbins, CIGARETTE EXAMINER SHUTTLE VENEERING SUPERVISOR
--- NOTE | 2019-05-05 15:24 | DCINST_ITS ---
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 lumbar spine (Acute) Lumbar discitis (Acute) Psoas abscess (Acute) Obstructive sleep apnea (Chronic) Hyperlipidemia (Chronic) Hypothyroidism (Chronic) Psoas tendinitis (Chronic) Morbid obesity (Chronic) Headache (Chronic) Osteoarthritis (Chronic) You will use the following diet at home:: No restrictions, Regular Your food should be the consistency of: Regular Your liquids should be the consistency of: Regular/Thin Discharge Activity: Return to Normal Activity, May Shower, Use Walker Weight Bearing Status: Weight bearing as tolerated Call your doctor if you observe: Fever of 101 or Higher, Inability to urinate, Inability to have a bowel movement, Shortness of breath, Chest pain, Uncontrolled pain Allergies/Adverse Reactions: Allergies No Known Allergies Allergy (Verified 02/08/19 18:47) Medications to take at Discharge Oxycodone HCl 5 mg PO Q6H PRN PRN 02/08/19 Baclofen [Lioresal] 10 mg PO TIDCM PRN #90 tab 02/10/19 Acetaminophen [Tylenol] 1,000 mg PO Q8 tablet 05/05/19 Bisoprolol Fumarate [Zebeta (Beta Fernanda)] 5 mg PO DAILY #30 tab 05/05/19 Icy Hot 1 applicatio TOPICAL TID 05/05/19 Levothyroxine [Synthroid] 88 mcg PO DAILY@0600 #30 tab 05/05/19 Lisinopril [Zestril] 20 mg PO DAILY #30 tab 05/05/19 Oxycodone [Oxyir] 10 mg PO Q4H PRN 7 Days #60 tab 05/05/19 Polyethylene Glycol 3350 [Miralax] 17 gm PO DAILY PRN #30 packet 05/05/19 Senna/Docusate Sodium [Senokot-S] 2 tab PO BID PRN #120 tab 05/05/19 hydroCHLOROthiazide [Hydrochlorothiazide] 6.25 mg PO DAILY #30 tab 05/05/19 metFORMIN HCl [Glucophage] 500 mg PO BIDCM #60 tab 05/05/19 traMADol [Ultram] 50 mg PO Q6H PRN PRN 7 Days #30 tab 05/05/19 The following prescriptions were given: metFORMIN HCl [Glucophage] 500 mg PO BIDCM #60 tab Transmission Status: [facility] to [id number] hydroCHLOROthiazide [Hydrochlorothiazide] 6.25 mg PO DAILY #30 tab Transmission Status: [facility]ending to [id number] Polyethylene Glycol 3350 [Miralax] 17 gm PO DAILY PRN #30 packet PRN Reason: Constipation Transmission Status: [id number] Oxycodone [Oxyir] 10 mg PO Q4H PRN 7 Days #60 tab PRN Reason: Severe Pain (6-05/25) Prescription Printed Senna/Docusate Sodium [Senokot-S] 2 tab PO BID PRN #120 tab PRN Reason: Constipation Transmission Status: [facility] to [id number] Levothyroxine [Synthroid] 88 mcg PO DAILY@0600 #30 tab Transmission Status: [id number] traMADol [Ultram] 50 mg PO Q6H PRN PRN 7 Days #30 tab PRN Reason: Moderate Pain (4-12/23) Prescription Printed Bisoprolol Fumarate [Zebeta (Beta Fernanda)] 5 mg PO DAILY #30 tab Transmission Status: [id number] Lisinopril [Zestril] 20 mg PO DAILY #30 tab Transmission Status: [id number] Primary Care Physician: Enrique Otero Chi, MD [[facility] STAFF PHYSICIAN] - Please follow up with your Primary Care Physician in: 1 week. Test Results: Test results from this visit will be discussed in further detail at your follow- up appointment, if applicable. Please Follow Up With: Junaid Feliciano When: FRANCISCO Please Follow Up With: Ayaka Ruiz Please Follow Up With: Socrates Neely MD When: 2 weeks Please Follow Up With: Socrates Wong When: 4 weeks Please Follow Up With: [facility] Proposed Discharge Date: 05/10/19
[2019-05-05 15:25] VITALS: BP 144/79; PULSE 72; RESP 20; TEMP 36.6; O2SAT 96
--- NOTE | 2019-05-05 15:25 | DS.PCM_ITS ---
Discharge Date and Diagnosis - Problem List Patient Problems: Active and Suspected Problems (Last Updated 12/27/18 @ 07:53 by Ruben Sandoval DO) Abscess in epidural space of lumbar spine (Acute) Lumbar discitis (Acute) Psoas abscess (Acute) Date of Admission: 03/17/19 Date of Discharge: 05/10/19 - Primary Discharge Diagnosis Active and Suspected Problems (Last Updated 12/27/18 @ 07:53 by Ruben Sandoval DO) Abscess in epidural space of lumbar spine (Acute) Lumbar discitis (Acute) Psoas abscess (Acute) - Secondary Discharge Diagnosis Chronic Problems (Last Updated 12/27/18 @ 07:53 by Ruben Sandoval DO) Obstructive sleep apnea (Chronic) Hyperlipidemia (Chronic) Hypothyroidism (Chronic) Psoas tendinitis (Chronic) Morbid obesity (Chronic) Headache (Chronic) Osteoarthritis (Chronic) History of left psoas muscle injury (Chronic) Chronic back pain (Chronic) Muscle spasm (Chronic) Hypertension (Chronic) Muscle tear (Chronic) Hospital Course and Treatment Imaging Results: 03/23/19 08:01 Diet: Regular Diet Food consistency:: Regular Liquid Consistency:: Regular/Thin Is pt able to select menu?: Yes Labs (Last 48 Hours) 05/04/19 05/05/19 06:23 06:17 POC Glucose 142 H 197 H Operations: None Procedures: None Summary of Care Provided: The patient is a 58 year old Male with below past medical history hospitalized for MSSA bacteremia, lumbar epidural abscess, lumbar discitis, underwent micr odiscectomy with incision and drainage 03/11/2019, admitted to TCU with debility, here for rehabilitation, strengthening, intravenous antibiotics, prior to discharge home with spouse. Discharge home with . Patient Problems: Active and Suspected Problems (Last Updated 12/27/18 @ 07:53 by Ruben Sandoval DO) Abscess in epidural space of lumbar spine (Acute) Lumbar discitis (Acute) Psoas abscess (Acute) - Physical Exam Vital Signs Temp Pulse Resp BP Pulse Ox 98.0 F 69 20 H 149/74 H 95 05/04/19 15:51 05/04/19 15:51 05/04/19 15:51 05/04/19 15:51 05/04/19 15:51 Oxygen Delivery Method Room Air Weight: 161.592 kg Body Mass Index (BMI) 53.9 Intake and Output for Last 24 Hours 05/03/19 05/04/19 05/05/19 23:59 23:59 23:59 Intake Total 2473.00 / 2473.00 2473.33 / 2473.33 1154.75 / 1154.75 Output Total 850 / 850 Balance 2473.00 / 2473.00 1623.33 / 1623.33 1154.75 / 1154.75 POC Glucose 05/05/19 06:17 POC Glucose 197 H Discharge Diet: No Restrictions Discharge Activity: Return to Normal Activity, May Shower, Use Walker Weight Bearing Status: Weight bearing as tolerated Call your doctor if you observe: Fever of 101 or Higher, Inability to urinate, Inability to have a bowel movement, Shortness of breath, Chest pain, Uncontrolled pain Home Medications: Medications to take at Discharge Oxycodone HCl 5 mg PO Q6H PRN PRN 02/08/19 Baclofen [Lioresal] 10 mg PO TIDCM PRN #90 tab 02/10/19 Acetaminophen [Tylenol] 1,000 mg PO Q8 tablet 05/05/19 Bisoprolol Fumarate [Zebeta (Beta Fernanda)] 5 mg PO DAILY #30 tab 05/05/19 Icy Hot 1 applicatio TOPICAL TID 05/05/19 Levothyroxine [Synthroid] 88 mcg PO DAILY@0600 #30 tab 05/05/19 Lisinopril [Zestril] 20 mg PO DAILY #30 tab 05/05/19 Oxycodone [Oxyir] 10 mg PO Q4H PRN 7 Days #60 tab 05/05/19 Polyethylene Glycol 3350 [Miralax] 17 gm PO DAILY PRN #30 packet 05/05/19 Senna/Docusate Sodium [Senokot-S] 2 tab PO BID PRN #120 tab 05/05/19 hydroCHLOROthiazide [Hydrochlorothiazide] 6.25 mg PO DAILY #30 tab 05/05/19 metFORMIN HCl [Glucophage] 500 mg PO BIDCM #60 tab 05/05/19 traMADol [Ultram] 50 mg PO Q6H PRN PRN 7 Days #30 tab 05/05/19 Following Prescrptions Were Given to Patient: metFORMIN HCl [Glucophage] 500 mg PO BIDCM #60 tab Transmission Status: [id number] hydroCHLOROthiazide [Hydrochlorothiazide] 6.25 mg PO DAILY #30 tab Transmission Status: [id number] Polyethylene Glycol 3350 [Miralax] 17 gm PO DAILY PRN #30 packet PRN Reason: Constipation Transmission Status: [id number] Oxycodone [Oxyir] 10 mg PO Q4H PRN 7 Days #60 tab PRN Reason: Severe Pain (6-10/10) Prescription Printed Senna/Docusate Sodium [Senokot-S] 2 tab PO BID PRN #120 tab PRN Reason: Constipation Transmission Status: [id number] Levothyroxine [Synthroid] 88 mcg PO DAILY@0600 #30 tab Transmission Status: [id number] traMADol [Ultram] 50 mg PO Q6H PRN PRN 7 Days #30 tab PRN Reason: Moderate Pain (4-5/10) Prescription Printed Bisoprolol Fumarate [Zebeta (Beta Fernanda)] 5 mg PO DAILY #30 tab Transmission Status: [id number] Lisinopril [Zestril] 20 mg PO DAILY #30 tab Transmission Status: [id number] Primary Care Physician: Enrique Otero Chi, MD [[facility] STAFF PHYSICIAN] - Please follow up with your Primary Care Physician in: 1 week. Please Follow Up With: Junaid Feliciano When: FRANCISCO Please Follow Up With: Ayaka Ruiz Please Follow Up With: Socrates Neely MD When: 2 weeks Please Follow Up With: Socrates Wong When: 4 weeks Please Follow Up With: [facility] Disposition: Home Minutes spent on discharge:: 30 Patient Condition:: Good Medical Necessity - Tobacco Use Smoking Status: Never smoker Tobacco Use: Non-smoker Meaningful Use Info Meaningful Use Diagnoses (Choose all that apply): None applicable
[2019-05-05] MEDS: traMADol 50 MG Tablet PO (21:36)
[2019-05-06] MEDS: 0.9% NaCl PICC Flush IV ×5 (01:41→18:09)
[2019-05-06 05:06] VITALS: BP 174/84; PULSE 66
[2019-05-06] MEDS: Acetaminophen 500 MG Tablet 1000 MG PO ×3 (05:07→22:03)
[2019-05-06] MEDS: Levothyroxine 88 MCG Tablet PO (05:07)
[2019-05-06] MEDS: Enoxaparin 40 MG/0.4 ML Syringe SC (05:07)
[2019-05-06] MEDS: hydroCHLOROthiazide 6.25mg TAB 6.25 MG PO (05:07)
[2019-05-06] MEDS: Bisoprolol Fumarate 5 MG Tablet PO (05:07)
[2019-05-06] MEDS: Lisinopril 20 MG Tablet PO (05:08)
[2019-05-06] MEDS: traMADol 50 MG Tablet PO (05:09)
[2019-05-06 06:26] LABS: Bedside Glucose 169 mg/dL (70-110)
[2019-05-06] MEDS: 0.9% NaCl IVPB Med Flush (250 mL) 100 ML IV (06:51)
[2019-05-06 08:12] LABS: Absolute Lymphocyte Count 0.96 X10^3/uL (0.83-4.51); Absolute Neutrophil Count 3.8 X10^3/uL (2.0-7.7); Basophil# 0.02 X10^3/uL; Basophil% 0.3 % (0-1); Eosinophil# 0.47 X10^3/uL; Hematocrit 39.3 % (40-54); Hemoglobin 12.9 g/dL (13.0-16.5); Lymphocyte # 0.96 X10^3/ul (4.0); Lymphocyte % 16.3 % (19-41); Mean Corp Hgb Conc 32.8 g/dL (32-36); Mean Corpuscular Hgb 31.9 pg (27.0-32.0); Mean Platelet Vol. 9.7 fl (6.2-12.0); Monocyte# 0.61 X10^3/uL; Monocyte% 10.4 % (0-10); NRBC Flagged by Analyzer 0 % (0-5); Neutrophil # 3.79 X10^3/uL (2.7-7.7); Neutrophil % 64.3 % (47-70); Platelet Count 227 K/mm3 (150-450); RBC Distribution Width CV 14.8 % (11.6-14.6); RBC Distribution Width SD 53.3 fl (35.1-43.9); Red Blood Count 4.05 M/mm3 (4.6-6.2); White Blood Count 5.9 K/mm3 (4.4-11.0)
[2019-05-06] MEDS: metFORMIN HCl 500 MG Tablet PO ×2 (08:21→17:00)
[2019-05-06 08:25] LABS: Anion Gap 10 (5-15); BUN 14 mg/dL (7-18); BUN/Creat Ratio 15.4 RATIO (10-20); Calcium,Total 8.7 mg/dL (8.5-10.1); Chloride 105 mmol/L (98-107); Creatinine, Serum 0.91 mg/dL (0.70-1.30); EST Glomerular Filtration Rate 91 mL/min (>60); Est Glom Filt Rate - Afr Amer 110 mL/min (>60); Glucose 155 mg/dL (74-106); Potassium 3.9 mmol/L (3.5-5.1); Sodium Level 142 mmol/L (136-145)
[2019-05-06] MEDS: Baclofen 10 MG Tablet PO ×3 (10:00→17:00)
[2019-05-06] MEDS: oxyCODONE 5 MG Tablet 10 MG PO ×2 (14:34→22:02)
[2019-05-06 14:50] VITALS: BP 129/72; PULSE 67; RESP 18; TEMP 36.4; O2SAT 98
[2019-05-07] MEDS: 0.9% NaCl PICC Flush IV ×6 (02:22→21:08)
[2019-05-07] MEDS: oxyCODONE 5 MG Tablet 10 MG PO (03:24)
[2019-05-07] MEDS: 0.9% NaCl IVPB Med Flush (250 mL) 100 ML IV (06:26)
[2019-05-07 06:30] LABS: Bedside Glucose 150 mg/dL (70-110)
[2019-05-07] MEDS: Levothyroxine 88 MCG Tablet PO (06:43)
[2019-05-07] MEDS: Acetaminophen 500 MG Tablet 1000 MG PO ×3 (06:43→21:08)
[2019-05-07] MEDS: hydroCHLOROthiazide 6.25mg TAB 6.25 MG PO (06:43)
[2019-05-07] MEDS: Bisoprolol Fumarate 5 MG Tablet PO (06:43)
[2019-05-07] MEDS: Lisinopril 20 MG Tablet PO (06:43)
[2019-05-07] MEDS: Enoxaparin 40 MG/0.4 ML Syringe SC (06:43)
[2019-05-07] MEDS: metFORMIN HCl 500 MG Tablet PO ×2 (08:03→17:07)
[2019-05-07] MEDS: Baclofen 10 MG Tablet PO ×3 (08:04→17:07)
[2019-05-07 15:28] VITALS: BP 151/57; PULSE 67; RESP 20; TEMP 36.8; O2SAT 97
[2019-05-08] MEDS: 0.9% NaCl PICC Flush IV ×6 (02:07→21:05)
[2019-05-08] MEDS: Acetaminophen 500 MG Tablet 1000 MG PO ×3 (04:16→21:12)
[2019-05-08] MEDS: Enoxaparin 40 MG/0.4 ML Syringe SC (04:16)
[2019-05-08] MEDS: Levothyroxine 88 MCG Tablet PO (04:17)
[2019-05-08] MEDS: Lisinopril 20 MG Tablet PO (04:17)
[2019-05-08] MEDS: Bisoprolol Fumarate 5 MG Tablet PO (06:01)
[2019-05-08] MEDS: hydroCHLOROthiazide 6.25mg TAB 6.25 MG PO (06:01)
[2019-05-08] MEDS: 0.9% NaCl IVPB Med Flush (250 mL) 100 ML IV (06:03)
[2019-05-08 06:16] LABS: Bedside Glucose 118 mg/dL (70-110)
[2019-05-08] MEDS: metFORMIN HCl 500 MG Tablet PO ×2 (09:00→17:54)
[2019-05-08] MEDS: Baclofen 10 MG Tablet PO ×3 (09:01→17:54)
[2019-05-08] MEDS: oxyCODONE 5 MG Tablet 20 MG PO (12:03)
[2019-05-08 15:16] VITALS: BP 159/79; PULSE 71; RESP 18; TEMP 36.7; O2SAT 94
[2019-05-08] MEDS: oxyCODONE 5 MG Tablet 10 MG PO (21:12)
[2019-05-09] MEDS: 0.9% NaCl PICC Flush IV ×5 (01:23→21:11)
[2019-05-09] MEDS: 0.9% NaCl IVPB Med Flush (250 mL) 100 ML IV (04:59)
[2019-05-09] MEDS: Bisoprolol Fumarate 5 MG Tablet PO (05:06)
[2019-05-09] MEDS: Levothyroxine 88 MCG Tablet PO (05:06)
[2019-05-09] MEDS: Acetaminophen 500 MG Tablet 1000 MG PO ×3 (05:06→21:12)
[2019-05-09] MEDS: hydroCHLOROthiazide 6.25mg TAB 6.25 MG PO (05:06)
[2019-05-09] MEDS: Lisinopril 20 MG Tablet PO (05:06)
[2019-05-09] MEDS: Enoxaparin 40 MG/0.4 ML Syringe SC (05:07)
[2019-05-09 06:30] LABS: Bedside Glucose 136 mg/dL (70-110)
[2019-05-09] MEDS: Baclofen 10 MG Tablet PO ×3 (09:00→17:18)
[2019-05-09] MEDS: metFORMIN HCl 500 MG Tablet PO ×2 (09:00→17:19)
[2019-05-09] MEDS: oxyCODONE 5 MG Tablet 20 MG PO (09:51)
[2019-05-09 16:00] VITALS: BP 141/85; PULSE 66; RESP 18; TEMP 36.7; O2SAT 96
[2019-05-10] MEDS: Levothyroxine 88 MCG Tablet PO (05:07)
[2019-05-10] MEDS: Bisoprolol Fumarate 5 MG Tablet PO (05:07)
[2019-05-10] MEDS: Lisinopril 20 MG Tablet PO (05:08)
[2019-05-10] MEDS: Acetaminophen 500 MG Tablet 1000 MG PO (05:08)
[2019-05-10] MEDS: oxyCODONE 5 MG Tablet 10 MG PO ×2 (05:08→11:46)
[2019-05-10] MEDS: hydroCHLOROthiazide 6.25mg TAB 6.25 MG PO (05:08)
[2019-05-10] MEDS: Enoxaparin 40 MG/0.4 ML Syringe SC (05:08)
[2019-05-10 06:26] LABS: Bedside Glucose 175 mg/dL (70-110)
[2019-05-10] MEDS: metFORMIN HCl 500 MG Tablet PO (08:11)
[2019-05-10] MEDS: Baclofen 10 MG Tablet PO ×2 (08:11→11:46)
[2019-05-10 08:58] VITALS: PULSE 61; RESP 18; O2SAT 96
[2019-05-10 09:17] VITALS: BP 142/76; PULSE 64; RESP 18; TEMP 36.4; O2SAT 95
--- NOTE | 2019-05-10 11:42 | NURSING ---
R' PEELED DRESSING OFF OF OLD PICC SITE. REMOVED THE DRESSING AND APPLIED NEW OPSITE WITH DRY, STERILE GAUZE TO COVER SITE. INSTRUCTED R' TO NOT PICK AT DRESSING AND LEAVE IN PLACE UNTIL TOMORROW.
== END 2019-05-10 12:30 | disposition home or self-care (01) | DRG 94 ==
PROVIDERS: Admitting Provider Family Medicine Geriatric Medicine; Family Provider Family Medicine; PCP Family Medicine; Referring Provider Family Medicine Geriatric Medicine; Visit Provider Family Medicine Geriatric Medicine
DX: G06.1 Intraspinal abscess and granuloma (principal); K68.12 Psoas muscle abscess; Z68.43 Body mass index [BMI] 50.0-59.9, adult; E03.9 Hypothyroidism, unspecified; E11.9 Type 2 diabetes mellitus without complications; M46.46 Discitis, unspecified, lumbar region; B95.61 Methicillin susceptible Staphylococcus aureus infection as the cause of diseases classified elsewhere; I10 Essential (primary) hypertension; G47.33 Obstructive sleep apnea (adult) (pediatric); E78.5 Hyperlipidemia, unspecified; M19.90 Unspecified osteoarthritis, unspecified site; E66.01 Morbid (severe) obesity due to excess calories; Z71.3 Dietary counseling and surveillance; G89.29 Other chronic pain; R21 Rash and other nonspecific skin eruption
CPT/HCPCS: 36415; 72158; 80048; 82962; 85025; 97110; 97116; 97163; 97166; 97530; 97535; 97802; A9575; J7040; J7050; A4216

== ENCOUNTER → 2019-04-14 09:05 | Outpatient (CLI) | payer SELFPAY ==
[2019-03-17 19:50] VITALS: BMI 53.9
--- NOTE | 2019-04-14 09:08 | CT_ITS ---
STUDY: CT LUMBAR SPINE WITH CONTRAST REASON FOR EXAM: Male, 58 years old. Back pain, history of epidural abscess RADIATION DOSAGE (If Supplied By Facility): CTDIvol = ( 81.37 ) mGy, DLP = ( 2318.14 ) mGycm TECHNIQUE: The patient was scanned in a multi detector CT scanner. High resolution transaxial imaging was performed following the intravenous administration of 100mL IV Isovue 300. Images were obtained from T12 to mid sacrum. Sagittal and coronal images were reconstructed. Individualized dose optimization techniques were used for this CT. COMPARISON: Previous study of 01/05/2019 FINDINGS: Erect the study is technically limited secondary to patient obesity scanning artifact. Normal lumbar lordosis. There is no substantial scoliosis. There is loss of bone substance of the inferior aspect of L4 and superior aspect of L5 with associated sclerosis. There is disc space widening at the L4-5 level. There is endplate spondylosis of T12 and L1. L1-2: There is moderate disc space narrowing. The facets are within normal limits. There is no central canal stenosis or foraminal narrowing. L2-3: Normal endplates. Normal disc height and morphology. Normal bilateral facet joints. Normal central canal and bilateral lateral recesses. Normal bilateral intervertebral neural foramina. L3-4: Normal endplates. Normal disc height and morphology. Normal bilateral facet joints. Normal central canal and bilateral lateral recesses. Normal bilateral intervertebral neural foramina. L4-5: There is status post left hemilaminectomy changes at L4. There is loss of bone substance of the inferior aspect of L4 and superior aspect of L5 with sclerosis of osseous margins. Disc space widening is noted. There is lateral recess stenosis and moderate central canal stenosis. L5-S1: There are status post left hemilaminectomy changes of L5. The facets are within normal limits. There is mild bilateral foraminal narrowing. There is no central canal stenosis. Disc spacing is within normal limits. Normal visualized paraspinous soft tissue structures. CT/Spine Lumbar WITH Contrast IMPRESSION: There is loss of bone substance of the inferior aspect of the L4 body and superior aspect of the L5 body with associated sclerosis of the involved osseous margins. There is disc space widening and irregularity at this level. Findings are new in the interval and suggestive of infectious process. Status post left hemilaminectomy changes of L4 and L5. Soft tissues are difficult to evaluate on this patient. If clinically indicated, MRI may be helpful for further evaluation. Electronically Signed: Ron Hoyt MD at 17:27 EDT , Service support ,
== END ==
PROVIDERS: Family Provider Family Medicine; PCP Family Medicine; Referring Provider Family Medicine Geriatric Medicine; Visit Provider Family Medicine Geriatric Medicine
DX: M54.5 Low back pain (principal)
CPT/HCPCS: 72132; Q9967; A4216

== ENCOUNTER → 2019-04-19 12:08 | Outpatient (CLI) | payer OTHER, SELFPAY ==
--- NOTE | 2019-04-19 12:11 | MRI_ITS ---
We are attempting to reach an attending provider to discuss findings. An addendum with communication details will be sent when the communication is complete. STUDY: MRI LUMBAR SPINE WITH AND WITHOUT CONTRAST REASON FOR EXAM: Male, 58 years old. Epidural abscess and discitis TECHNIQUE: Standardized fat and water weighted pulse sequences were obtained in the sagittal and axial planes. 30 IV Dotarem was administered for the contrast portion of the examination. COMPARISON: CT lumbar spine April 14, 2019 FINDINGS: T12-L1: Normal endplates. Normal disc height, hydration and morphology. Normal bilateral facet joints. Normal central canal and bilateral lateral recesses. Normal bilateral intervertebral neural foramina. Normal lumbar lordosis. There is no substantial scoliosis. Normal conus medullaris that terminates at the lumbar level. L1-2: Normal endplates. Normal disc height, hydration and morphology. Normal bilateral facet joints. Normal central canal and bilateral lateral recesses. Normal bilateral intervertebral neural foramina. L2-3: Normal endplates. Normal disc height, hydration and morphology. Normal bilateral facet joints. Normal central canal and bilateral lateral recesses. Normal bilateral intervertebral neural foramina. L3-4: Normal endplates. Normal disc height, hydration and morphology. Normal bilateral facet joints. Normal central canal and bilateral lateral recesses. Normal bilateral intervertebral neural foramina. L4-5: Disc space narrowing and irregularity of the endplates with slight retrolisthesis. Possible fluid signal noted within the disc space. Bone marrow edema noted in the adjacent vertebral bodies. Enhancement of the endplates and vertebral bodies. Moderate narrowing of the neural foramina. Fluid in the facets bilaterally. Central canal patent. Possible left hemilaminectomy. L5-S1: Normal endplates. Normal disc height, hydration and morphology. Hypertrophic bilateral facet joints. Normal central canal and bilateral lateral recesses. Narrowed right intervertebral neural foramina. Normal visualized sacral ala. Posterior subcutaneous and paraspinal edema, left greater than right. Magnetic susceptibility foci noted. No abscess. MRI/Spine Lumbar W/WO Contrast IMPRESSION: Osteomyelitis and probable discitis L4-5. Postsurgical changes as noted above. No intraspinal or paraspinal abscess. Possible left posterior paraspinal myositis. Extensive subcutaneous edema. Electronically Signed: Stuart Booker MD at 19:06 EDT , Service support ,
== END ==
PROVIDERS: Family Provider Family Medicine; PCP Family Medicine; Referring Provider Family Medicine Geriatric Medicine; Visit Provider Family Medicine Geriatric Medicine
DX: M54.5 Low back pain (principal)
CPT/HCPCS: 72158; A9575

== ENCOUNTER → 2019-05-17 13:15 | Outpatient (CLI) | payer OTHER, SELFPAY ==
[2019-05-17 15:51] LABS: Absolute Lymphocyte Count 1.55 X10^3/uL (0.83-4.51); Absolute Neutrophil Count 5.9 X10^3/uL (2.0-7.7); Basophil# 0.03 X10^3/uL; Basophil% 0.3 % (0-1); Eosinophil# 0.37 X10^3/uL; Eosinophils% 4.1 % (0-5); Hematocrit 44.2 % (40-54); Hemoglobin 14.2 g/dL (13.0-16.5); Lymphocyte # 1.55 X10^3/ul (4.0); Lymphocyte % 17.3 % (19-41); Mean Corp Hgb Conc 32.1 g/dL (32-36); Mean Corpuscular Hgb 31.8 pg (27.0-32.0); Mean Corpuscular Volume 99.1 fL (80-94); Monocyte# 1.08 X10^3/uL; Monocyte% 12.1 % (0-10); NRBC Flagged by Analyzer 0 % (0-5); Neutrophil # 5.88 X10^3/uL (2.7-7.7); Neutrophil % 65.9 % (47-70); Platelet Count 292 K/mm3 (150-450); RBC Distribution Width CV 14.6 % (11.6-14.6); RBC Distribution Width SD 53.7 fl (35.1-43.9); Red Blood Count 4.46 M/mm3 (4.6-6.2); White Blood Count 8.9 K/mm3 (4.4-11.0)
[2019-05-17 16:26] LABS: Hemoglobin A1c 6.2 % (4.2-6.3)
[2019-05-17 16:29] LABS: ALB/GLOB Ratio 0.8 RATIO (0.9-2.4); AST(SGOT) 22 U/L (15-37); Alanine Aminotransfer ALT/SGPT 35 U/L (16-61); Albumin, Serum 3.5 g/dL (3.2-5.0); Alkaline Phosphatase 119 U/L (45-117); Anion Gap 9 (5-15); BUN 20 mg/dL (7-18); Calcium,Total 9.4 mg/dL (8.5-10.1); Chloride 104 mmol/L (98-107); Creatinine, Serum 1.11 mg/dL (0.70-1.30); EST Glomerular Filtration Rate 72 mL/min (>60); Est Glom Filt Rate - Afr Amer 87 mL/min (>60); Globulin 4.3 g/dL (2.2-4.2); Glucose 78 mg/dL (74-106); Potassium 5.2 mmol/L (3.5-5.1); Protein, Total 7.8 g/dL (6.4-8.2); Sodium Level 138 mmol/L (136-145); Thyroid Stim Hormone (TSH) 1.76 uIU/mL (0.358-3.74)
== END ==
PROVIDERS: Visit Provider Family Medicine Geriatric Medicine
DX: I10 Essential (primary) hypertension (principal); E11.9 Type 2 diabetes mellitus without complications
CPT/HCPCS: 36415; 80053; 83036; 84443; 85025

== ENCOUNTER → 2019-06-12 | Outpatient (CLI) | payer OTHER, SELFPAY ==
[2019-06-12 17:38] LABS: Absolute Lymphocyte Count 1.41 X10^3/uL (0.83-4.51); Absolute Neutrophil Count 6.2 X10^3/uL (2.0-7.7); Basophil# 0.02 X10^3/uL; Basophil% 0.2 % (0-1); Eosinophil# 0.22 X10^3/uL; Eosinophils% 2.5 % (0-5); Hematocrit 45.1 % (40-54); Hemoglobin 14.5 g/dL (13.0-16.5); Lymphocyte # 1.41 X10^3/ul (4.0); Lymphocyte % 16.1 % (19-41); Mean Corp Hgb Conc 32.2 g/dL (32-36); Mean Corpuscular Hgb 31.7 pg (27.0-32.0); Mean Corpuscular Volume 98.7 fL (80-94); Mean Platelet Vol. 10.8 fl (6.2-12.0); Monocyte# 0.88 X10^3/uL; NRBC Flagged by Analyzer 0 % (0-5); Neutrophil % 70.6 % (47-70); Platelet Count 258 K/mm3 (150-450); RBC Distribution Width CV 12.7 % (11.6-14.6); RBC Distribution Width SD 45.3 fl (35.1-43.9); Red Blood Count 4.57 M/mm3 (4.6-6.2); White Blood Count 8.8 K/mm3 (4.4-11.0)
[2019-06-12 17:39] LABS: Erythrocyte Sedimentation Rate 45 mm/hr (0-20)
[2019-06-12 17:43] LABS: Anion Gap 7 (5-15); BUN 20 mg/dL (7-18); BUN/Creat Ratio 17.4 RATIO (10-20); Calcium,Total 9.1 mg/dL (8.5-10.1); Chloride 103 mmol/L (98-107); Creatinine, Serum 1.15 mg/dL (0.70-1.30); EST Glomerular Filtration Rate 69 mL/min (>60); Est Glom Filt Rate - Afr Amer 84 mL/min (>60); Glucose 103 mg/dL (74-106); Potassium 4.6 mmol/L (3.5-5.1); Sodium Level 138 mmol/L (136-145)
[2019-06-12 18:58] LABS: D-Dimer Quantitative (DVT/PE) 2.28 FEU/ug/m (0.27-0.49)
== END | disposition home or self-care (01) ==
LOC: POLAB3 16:03
PROVIDERS: Family Provider Family Medicine Geriatric Medicine; PCP Family Medicine Geriatric Medicine; Visit Provider Family Medicine Geriatric Medicine
DX: R60.9 Edema, unspecified (principal); M79.609 Pain in unspecified limb
CPT/HCPCS: 36415; 80048; 85025; 85379; 85652; 86140

== ENCOUNTER → 2019-06-13 13:34 | Outpatient (CLI) | payer OTHER, SELFPAY ==
--- NOTE | 2019-06-13 13:36 | VDLE_ITS ---
Reason For Study: edema RIGHT LEFT GSV is normal. GSV is normal. CFV is compressible, spontaneous, phasic, CFV is compressible, spontaneous, phasic, competent and demonstrates normal competent, and demonstrates normal augmentation. augmentation. FV is compressible, spontaneous, phasic, FV is compressible, spontaneous, phasic, competent and demonstrates normal competent and demonstrates normal augmentation. augmentation. POP V is compressible, spontaneous, phasic, POP V is compressible, spontaneous, phasic, competent and demonstrates normal competent and demonstrates normal augmentation. augmentation. T/P Trunk is compressible. T/P Trunk is compressible. PTV is compressible. PTV is compressible. RT PerV is compressible. LT PerV is compressible. Procedure Exam performed in department. The exam was diagnostic. A preliminary report was called and/or faxed to Dr. Otero's office. Interpretation Summary Deep veins of the lower extremities are bilaterally patent and compressible segmentally. There is no evidence of deep vein thrombosis on either side. Valvular competence appears intact within the proximal deep venous systems bilaterally. The great saphenous veins appear bilaterally patent and compressible segmentally. Ordering Physician: Enrique Otero Performed By: Sha Perez RVT
== END ==
PROVIDERS: Family Provider Family Medicine Geriatric Medicine; PCP Family Medicine Geriatric Medicine; Referring Provider Family Medicine Geriatric Medicine; Visit Provider Family Medicine Geriatric Medicine
DX: R60.0 Localized edema (principal)
CPT/HCPCS: 93970

== ENCOUNTER 2019-09-08 11:30 | Outpatient (RCR) | payer OTHER, MEDICAID, SELFPAY ==
--- NOTE | 2019-06-06 10:44 | HP.PTEVAL ---
Patient's Visit Information CASSI MORA is a 58 year old M referred to Physical Therapy by Enrique Otero MD with a diagnosis of S/P LAMINECTOMY L45 03/11/19, DISCITIS.. Date of Evaluation: 06/06/19 Physical Therapist: Flower Andres, PT, Cert MDT - Visit Plan Frequency: 2x /Week Duration: 4 Weeks Plan: AQUATIC THERAPY FOR PAIN RELEIF, POSTURE CORRECTION/STRENGTHENING, INSTRUCTION IN APPROPRIATE BODY MECHANICS AND ACTIVITY MODIFICATIONS. DLS STARTING WITH A NEUTRAL SPINE PROGRESSING ROM TOLERATED. SERENA LE ROM, STRETCHING AND STRENGTHENING. HEP INSTRUCTION. - Subjective Findings: Work/Leisure: UNEMPLOYEED SINCE 2009. Disability: NO. Present symptoms: LOW BACK PAIN, RIGHT SHOULDER PAIN, PAIN IN BOTH LEGS ALL THE WAY DOWN. CONSTANT SERENA LE NUMBNESS AND TINGLING. (ALSO REPORTS LEFT MEDIAL KNEE PAIN FROM HYPER EXTENDING HIS KNEE). Present since: 1997. Pain Scale: WORST 6/10, LEAST 0/10. Currently: 0/10. Commenced as a result of: NO APPARENT REASON. Symptoms at onset: LOW BACK. Worse: WALKING, STANDING, LYING ON SIDE, LYING ON BACK, SITTING TOO LOW, TRYING TO GET UP OUT OF A CHAIR, HARD TO BEND OVER. GOING UP AND DOWN THE STAIRS. Better: SITTING IN RECLINING LIFT CHAIR, TYLONOL, OXICODONE AND TRAMADOL. Disturbed sleep: YES - IN THE BED. OK IN RECLINER. Previous history/Previous treatment: TRIED SIENNA'S LONG TIME AGO WITHOUT SUCCESS. A LOT OF CHIROPRACTIC TREATMENTS OVER THE YEARS - TEMPORARY BENEFIT. NO PHYSICAL THERAPY. NO OTHER BACK SURGERIES OTHER THAN THIS ONE. Coughing/sneezing/straining: POSITIVE. Gait: PATIENT REPORTS HE CAN WALK SOME DAYS BETTER THAN OTHERS. ALMOST ALWAYS USES WALKER. STATES HE COULD WALK WITHOUT A WALKER IN NOVEMBER 2018. IN THE MIDDLE OF DECEMBER HE WAS CUTTING WOOD FOR A PROLONGED PERIOD OF TIME AND HIS BACK FLARED UP AND HASN'T BEEN ABLE TO WALK THE SAME SINCE. WALKING GOT EVEN MUCH WORSE AFTER SURGERY. Difficulty initiating urinatin: NO. Accidents: AGE 17 - FELL 8 FEET TO THE GROUND - PELVIC BONE HIT CONCRETE BLOCK - REVOVERED. Unexplained weight loss: NO. Imagin LUMBAR MRI'S - TWO BEFORE AND ONE AFTER. 3RD MRI WAS NORMAL. OTHER: THIS EPISODE HAD REHAB ON TCU AT [facility] X 8 WEEKS AFTER SURGERY. ON TCU BEFORE SURGERY FOR ABOUT 6 WEEKS TOO. - Objective Sitting/Standing Posture: POOR. Lordosis: REDUCED. Lateral shift: NO. Relevant shift: N/A. Active Correction of posture: INCREASES LOW BACK PAIN. Other Observations: GAIT AND TRANSFERS ARE DIFFICULT BUT INDEP TRANSFERS WITH SERENA UE ASSIST AND INDEP GAIT X AT LEAST 300 FEET WITH ROLLATOR. Motor deficit: SERENA LE STRENGTH GROSLY 5/5 WITH MMT'ING EXCEPT HIPS GRADED 4/5. Sensory deficit: ALTERED SERENA LE SENSATION WHICH PATIENT RELATES TO NEUROPATHY BUT ESPECIALLY NUMB LEFT ANTEROLATERAL THIGH. ROM deficit: TIGHT SERENA HIP FLEXORS, HS'S AND GASTROC SOLEUS COMPLEX'S. Reflexes: NT. Dural Signs: POSITIVE SERENA LE'S. Lumbar mvmt loss: flex - MOD. ext - LOUIS. R SG - LOUIS. L SG - LOUIS. PATIENT DENIES INCRASED PAIN WITH LUMBAR FLEXION TESTING BUT REPORTS IT IS DIFFICULT. C/O INCRASED LBP WITH LUMBAR EXT AND SERENA SG TESTING. Core strength: POOR. Palpation: INCISION LOOKS GOOD WITHOUT ANY SIGNS OF INFECTION. - Goals Goal 1:: DECREASE C/O LOW BACK AND SERENA LE SX'S. Goal Time Frame: 4-6 Weeks Goal 2:: IMPROVE PERSONAL CARE, LIFTING, WALKING, STANDING, SLEEP, TRAVEL AND EMPLOYMENT/HOMEMAKING FUNCTION Goal Time Frame: 4-6 Weeks Goal 3:: INSTRUCT IN PROPHYLAXIS Goal Time Frame: 4-6 Weeks - Rehabilitation Potential Rehabilitation Potential: Fair - Anticipated Interventions Patient/Client Instruction: Educate patient on: Condition, Plan of Care, Risk Factors, Benefits of Fitness Program For the Purpose of:: To improve self management Therapeutic Exercise to Include: Strength training, Body mechanics, Postural training, Flexibilty training, Gait and locomotor training, In an aquatic setting, Active ROM, Dynamic Lumbar Stabilization For the Purpose of:: To decrease pain, To increase ROM, To improve muscle performance and motor function, To increase tolerance to activity/condition/position, To improve ability of physical actions for home/community/work/leisure, To improve gait and locomotor functions Thank you for the opportunity to evaluate your patient. For Medicare and Medicare HMO plans, please review the plan of care and approve it. It will need to be FAXED BACK to us at [phone] for Medicare purposes. For Medicare only, by signing this I certify the plan of care. Please let me know if there are questions or concerns regarding this plan of care. Physician Signature: Date:
--- NOTE | 2019-07-17 15:55 | HP.PTREVAL ---
Enrique Otero MD, It has been my pleasure to treat CASSI MORA over the last 8 visits for S/P LAMINECTOMY L45 03/11/19, DISCITIS.. Please see the progress note below for an update on the physical therapy plan of care! Subjective: PATIENT REPORTS HIS HAS NOTICED HE ASKS FOR LESS HELP NOW. STATES HE GOES ON WALKS ON HIS OWN NOW AND IS ABLE TO GET UP AND DOWN THE STEPS A LITTLE EASIER. UP TO 4/10 LOW BACK PAIN AT WORST IN LAST FEW DAYS. LEFT KNEE PAIN UP TO 5/10 AT WORST , RIGHT SHOULDER/NECK PAIN 8-9/10 AT WORST. PATIENT DENIES THERAPY MAKING ANY OF HIS PAIN WORSE. PATIENT REPORTS HE SAW THE SURGEON AND HE HAS BEEN RELEASED WITH NO RESTRICTIONS. STILL USING WALKER AT THIS POINT AT ALL TIMES - I WON'T GO WITHOUT IT. STATES HIS BACK GETS TIGHT IF HE TRIES TO WALK WITHOUT IT. REPORTS HE IS INCONSISTENT WITH HEP JUST DIDN'T PUT THE TIME IN LIKE I SHOULD HAVE. STATES HE IS PLANNING TO START WORK TOMORROW [employer] LOOKING FORWARD TO WHEN HE CAN TRANSITION FROM POOL TO LAND BUT DEFINATELY WILLING TO CONTINUE POOL IF RECOMMENDED Objective/Function: PATIENT IS MAKING SLOW PROGRESS TOWARD ALL PT GOALS AND IS A GOOD CANDIDATE TO CONTINUE AQUATIC THERAPY AT THIS TIME. UPON EXAM TODAY: GAIT AND TRANSFERS ARE DIFFICULT BUT INDEP TRANSFERS WITH SERENA UE ASSIST AND INDEP GAIT X AT LEAST 300 FEET WITH FWW X 2. Motor deficit: SERENA LE STRENGTH GROSLY 5/5 WITH MMT'ING EXCEPT HIPS GRADED 4/5 AND LEFT HIP A LITTLE WEAKER THAN RIGHT. ROM deficit: TIGHT SERENA HIP FLEXORS, HS'S AND GASTROC SOLEUS COMPLEX'S. Reflexes: NT. Dural Signs: NEGATIVE SERENA LE'S NOW. Lumbar mvmt loss: flex - MIN. ext - LOUIS. R SG - LOUIS. L SG - LOUIS. PATIENT REPORTS INCRASED NO PAIN WITH LUMBAR FLEX ROM TESTING BUT C/O INCRASED LBP WITH LUMBAR EXT AND SERENA SG TESTING. Core strength: POOR Plan Plan: Recommend continued AT at this time d/t progress made, however, room for greater improvement. Patient is agreeable. *Wants to get back to hiking on trails Goals Goal 1:: DECREASE C/O LOW BACK AND SERENA LE SX'S. Goal Time Frame: 4-6 Weeks Goal Progress: Progressing Goal 2:: IMPROVE PERSONAL CARE, LIFTING, WALKING, STANDING, SLEEP, TRAVEL AND EMPLOYMENT/HOMEMAKING FUNCTION Goal Time Frame: 4-6 Weeks Goal Progress: Progressing Goal 3:: INSTRUCT IN PROPHYLAXIS Goal Time Frame: 4-6 Weeks Goal Progress: Progressing Anticipated Interventions Patient/Client Instruction: Educate patient on: Condition, Plan of Care, Risk Factors, Benefits of Fitness Program For the Purpose of:: To improve self management Therapeutic Exercise to Include: Strength training, Body mechanics, Postural training, Flexibilty training, Gait and locomotor training, In an aquatic setting, Active ROM, Dynamic Lumbar Stabilization For the Purpose of:: To decrease pain, To increase ROM, To improve muscle performance and motor function, To increase tolerance to activity/condition/position, To improve ability of physical actions for home/community/work/leisure, To improve gait and locomotor functions Please do not hesitate to contact me at [phone] by phone or if you have questions or concerns regarding this new plan of care! Sincerely, Flower Andres, PT, Cert MDT
--- NOTE | 2019-09-08 12:07 | HP.PTDCSUM_ITS ---
HP - PT D/C Summary It has been my pleasure to treat CASSI MORA under orders from Enrique Otero MD, for the diagnosis of S/P LAMINECTOMY L45 03/11/19, DISCITIS. for a total of 27 visit(s). Discharge Date: Please see the following information for a summary of their discharge status. - Subjective Subjective: PATIENT REPORTS HE IS MUCH BETTER. STATES HE CAN WALK A LOT FURTHER AND STAND TO DO COOKING AND DISHES ALL AT ONCE INSTEAD OF NEEDING TO SIT DOWN IN BETWEEN. STEPS ARE GOOD. REPORTS HE GOES OUT OF HIS HOME WITH THE CANE SOMETIMES NOW BUT STILL USES THE WALKER FOR LONG DISTANCES BECAUSE OTHERWISE BACK GETS SORE AND CAUSES HIM TO HAVE TO SIT. NO PLACE TO SIT AT PLACES LIKE [employer]. 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 I AM WANTING TO BE RELEASED. PATIENT REPORTS HE IS VERY HAPPY WITH HIS PROGRESS AND IS PLANNING A HIKING TRIP THIS SPRING. - Pain Lumbar Spine Pain Intensity (Out of 10): 1 R shldr Pain Intensity (Out of 10): 0 L knee Pain Intensity (Out of 10): 0 - Overall Improvement % Improvement: 95 - Objective Objective/Function: PATIENT WAS SEEN TODAY FOR RE-ASSESSMENT OF PROGRESS TOWARD THE SET PT GOALS AND THE NEED FOR FURTHER PHYSICAL THERAPY VS READINESS FOR DISCHARGE. PATIENT IS INDEP NOW IN BOTH LAND AND WATER EX PROGRAMS AND IS APPROPRIATE FOR DISCHARGE TO INDEP EX AT THIS TIME. UPON EXAM TODAY: PATIENT DEMONSTRATES INDEP GAIT TODAY WITH ROLLATOR WITH GOOD REHANA AND MINIMAL DEPENDENCE ON ROLLATOR. HE ALSO DEMONSTRATES INDEP GAIT WITHOUT ANY ASSISTIVE DEVICES IN THE CLINIC WITH GOOD BALANCE AND CADANCE ALTHOUGH HE STILL HAS INCREASED LUMBAR FLEX WITH AND WITHOUT AD. ATTEMPS TO FURTHER CORRECT PROVOKE RIGHT LBP. INSTRUCTION GIVEN FOR SAFE PROGRESSION TO WORK ON THIS IN ADDITION TO CURRENT HEP. PATIENT IS ABLE TO DEMONSTRATE SIT TO STAND TRANSFER WITHOUT UE ASSIST EASILY. Motor deficit: SERENA LE'S 5/5 WITH MMT'ING. ROM deficit: PATIETN STILL WITH TIGHT SERENA HIP FLEXORS, HS'S AND GASTROC SOLEUS COMPLEX'S AND HAS HEP TO CONTINUE WORK FOR THIS. Dural Signs: NEGATIVE SERENA LE'S. Lumbar mvmt loss: flex - MIN. ext - LOUIS. R SG - LOUIS. L SG - LOUIS. PATIENT REPORTS INCREASE RIGHT LBP WITH LUMBAR EXT ROM TESTING. Core strength: POOR. - Goals Goal 1:: DECREASE C/O LOW BACK AND SERENA LE SX'S. Goal Progress: Goal Met Goal 2:: IMPROVE PERSONAL CARE, LIFTING, WALKING, STANDING, SLEEP, TRAVEL AND EMPLOYMENT/HOMEMAKING FUNCTION Goal Progress: Goal Met Goal 3:: INSTRUCT IN PROPHYLAXIS Goal Progress: Goal Met - Plan Plan: D/C TO INDEP EX - PATIENT IS AGREEABLE. - D/C Information If there are questions or concerns regarding this patient's physical therapy, please feel free to call me at [phone]. Thank you for the referral of this patient. Sincerely, Flower Andres, PT, Cert MDT
== END 2019-09-08 19:00 | disposition home or self-care (01) ==
LOC: PT 11:30
PROVIDERS: Family Provider Family Medicine Geriatric Medicine; PCP Family Medicine Geriatric Medicine; Visit Provider Family Medicine Geriatric Medicine
DX: M46.46 Discitis, unspecified, lumbar region (principal); Z98.890 Other specified postprocedural states
CPT/HCPCS: 97110; 97113; 97162; 97164; 97530

== ENCOUNTER → 2020-02-26 15:02 | Outpatient (CLI) | payer OTHER, MEDICAID, SELFPAY ==
[2020-02-26 16:39] LABS: Absolute Lymphocyte Count 1.25 X10^3/uL (0.83-4.51); Basophil# 0.02 X10^3/uL; Basophil% 0.2 % (0-1); Eosinophil# 0.13 X10^3/uL; Eosinophils% 1.6 % (0-5); Hematocrit 42.9 % (40-54); Hemoglobin 13.9 g/dL (13.0-16.5); Lymphocyte # 1.25 X10^3/ul (4.0); Lymphocyte % 15.4 % (19-41); Mean Corp Hgb Conc 32.4 g/dL (32-36); Mean Corpuscular Hgb 32.3 pg (27.0-32.0); Mean Corpuscular Volume 99.8 fL (80-94); Mean Platelet Vol. 11.7 fl (6.2-12.0); Monocyte% 8.6 % (0-10); NRBC Flagged by Analyzer 0 % (0-5); Neutrophil # 5.97 X10^3/uL (2.7-7.7); Neutrophil % 73.7 % (47-70); Platelet Count 228 K/mm3 (150-450); RBC Distribution Width CV 13.6 % (11.6-14.6); RBC Distribution Width SD 49.1 fl (35.1-43.9); White Blood Count 8.1 K/mm3 (4.4-11.0)
[2020-02-26 16:46] LABS: Vitamin D,25 Hydroxy 20.7 ng/mL
[2020-02-26 16:55] LABS: ALB/GLOB Ratio 0.8 RATIO (0.9-2.4); AST(SGOT) 17 U/L (15-37); Alanine Aminotransfer ALT/SGPT 28 U/L (16-61); Albumin, Serum 3.1 g/dL (3.2-5.0); Alkaline Phosphatase 98 U/L (45-117); Anion Gap 6 (5-15); BUN 17 mg/dL (7-18); BUN/Creat Ratio 14.5 RATIO (10-20); Calcium,Total 8.4 mg/dL (8.5-10.1); Chloride 106 mmol/L (98-107); Creatinine, Serum 1.17 mg/dL (0.70-1.30); EST Glomerular Filtration Rate 68 mL/min (>60); Est Glom Filt Rate - Afr Amer 82 mL/min (>60); Globulin 3.9 g/dL (2.2-4.2); Glucose 173 mg/dL (74-106); Potassium 4.2 mmol/L (3.5-5.1); Sodium Level 139 mmol/L (136-145); Thyroid Stim Hormone (TSH) 3.68 uIU/mL (0.358-3.74)
== END ==
PROVIDERS: PCP Family Medicine Geriatric Medicine; Visit Provider Family Medicine Geriatric Medicine
DX: E11.65 Type 2 diabetes mellitus with hyperglycemia (principal); I10 Essential (primary) hypertension; E55.9 Vitamin D deficiency, unspecified
CPT/HCPCS: 36415; 80053; 82306; 84443; 85025

== ENCOUNTER → 2020-02-28 05:49 | Outpatient (CLI) | payer OTHER, MEDICAID, SELFPAY ==
--- NOTE | 2020-02-28 10:55 | STRESSREP_ITS ---
Stress Test Report Date: 02/28/2020 Procedure: Pharmacologic stress nuclear imaging study Indications: Preoperative evaluation, abnormal EKG Consent: Per the patient Procedure: The patient underwent pharmacologic (Regadenoson) evaluation with a peak heart rate of 109 beats per minute (67 %predicted maximal heart rate) and a peak blood pressure of 152/90 mmHg. The baseline ECG demonstrated normal sinus rhythm. EKG during lexiscan infusion revealed no significant ischemic changes. EKG post infusion revealed no significant ischemic changes [There were no cardiac dysrhythmias pretest, during pharmacologic infusion, or recovery]. [There was no complaint of chest discomfort during pharmacologic infusion or recovery]. The examination was discontinued secondary to completion of protocol. Impression: 1. Lexiscan stress test test is negative for Lexiscan infusion induced EKG changes of ischemia. 2. Lexiscan stress test test is negative for Lexiscan infusion induced chest pain. 3. Results of the nuclear portion of the test is as below Myocardial perfusion imaging study: Technique: The patient was injected with 14.6 millicuries of technetium 99m Cardiolite and subsequently rest SPECT Cardiolite nuclear imaging was obtained in the horizontal long, vertical long, and short axis views. The patient underwent pharmacologic (Regadenoson) evaluation. Please see above for details. The patient was injected with 44.9 millicuries of technetium 99m Cardiolite and subsequently stress SPECT Cardiolite nuclear imaging was obtained in the horizontal long, vertical long, and short axis views. A gated Cardiolite study at peak stress was obtained. Interpretation: Rest and stress SPECT Cardiolite nuclear imaging status post realignment, normalization, and attenuation correction demonstrate no evidence of significant ischemia or infarction. There is mildly decreased radioisotope uptake in the inferior wall prior to attenuation correction on both the rest and stress images that normalizes after attenuation correction suggestive of diaphragmatic attenuation artifact. Gated images reveal no significant regional wall motion abnormalities. The reported LVEF is 54 %. Impression: 1. There is no evidence of significant ischemia or infarction. 2. Estimated ejection fraction is 54%. This note was generated with [email or web address] software. It may contain incorrect words, spelling, and punctuation that were not noted in checking the note before signing.
== END ==
PROVIDERS: PCP Family Medicine Geriatric Medicine; Referring Provider Family Medicine Geriatric Medicine; Visit Provider Family Medicine Geriatric Medicine
DX: R94.31 Abnormal electrocardiogram [ECG] [EKG] (principal)
CPT/HCPCS: 78452; 93017; A9500; A4216; J2785

== ENCOUNTER → 2020-04-01 13:09 | Outpatient (CLI) | payer OTHER, SELFPAY ==
[2020-04-01 16:07] LABS: Absolute Lymphocyte Count 1.22 X10^3/uL (0.83-4.51); Absolute Neutrophil Count 4.3 X10^3/uL (2.0-7.7); Basophil# 0.02 X10^3/uL; Basophil% 0.3 % (0-1); Eosinophils% 3.1 % (0-5); Hematocrit 40.8 % (40-54); Hemoglobin 13.2 g/dL (13.0-16.5); Lymphocyte # 1.22 X10^3/ul (4.0); Lymphocyte % 18.7 % (19-41); Mean Corp Hgb Conc 32.4 g/dL (32-36); Mean Corpuscular Hgb 31.5 pg (27.0-32.0); Mean Corpuscular Volume 97.4 fL (80-94); Mean Platelet Vol. 11.2 fl (6.2-12.0); Monocyte% 12.3 % (0-10); NRBC Flagged by Analyzer 0 % (0-5); Neutrophil # 4.25 X10^3/uL (2.7-7.7); Neutrophil % 65.1 % (47-70); Platelet Count 260 K/mm3 (150-450); RBC Distribution Width CV 12.7 % (11.6-14.6); RBC Distribution Width SD 45.3 fl (35.1-43.9); Red Blood Count 4.19 M/mm3 (4.6-6.2); White Blood Count 6.5 K/mm3 (4.4-11.0)
[2020-04-01 16:34] LABS: Vitamin D,25 Hydroxy 23.5 ng/mL
[2020-04-01 16:50] LABS: ALB/GLOB Ratio 0.8 RATIO (0.9-2.4); AST(SGOT) 17 U/L (15-37); Alanine Aminotransfer ALT/SGPT 26 U/L (16-61); Albumin, Serum 3.1 g/dL (3.2-5.0); Alkaline Phosphatase 104 U/L (45-117); Anion Gap 7 (5-15); BUN 16 mg/dL (7-18); BUN/Creat Ratio 13.9 RATIO (10-20); Calcium,Total 8.7 mg/dL (8.5-10.1); Chloride 101 mmol/L (98-107); Creatinine, Serum 1.15 mg/dL (0.70-1.30); EST Glomerular Filtration Rate 69 mL/min (>60); Est Glom Filt Rate - Afr Amer 84 mL/min (>60); Glucose 208 mg/dL (74-106); PSA,Total - Annual Screen 0.57 ng/mL (0.00-4.00); Potassium 4.3 mmol/L (3.5-5.1); Protein, Total 7.1 g/dL (6.4-8.2); Sodium Level 136 mmol/L (136-145); Thyroid Stim Hormone (TSH) 4.64 uIU/mL (0.358-3.74)
== END ==
PROVIDERS: PCP Family Medicine Geriatric Medicine; Visit Provider Family Medicine Geriatric Medicine
DX: E11.65 Type 2 diabetes mellitus with hyperglycemia (principal); I10 Essential (primary) hypertension; E55.9 Vitamin D deficiency, unspecified; Z12.5 Encounter for screening for malignant neoplasm of prostate
CPT/HCPCS: 36415; 80053; 82306; 84153; 84443; 85025; G0103

== ENCOUNTER → 2020-05-07 14:04 | Outpatient (CLI) | payer OTHER, SELFPAY ==
--- NOTE | 2020-05-07 14:15 | RAD_ITS ---
STUDY: X-RAY - LEFT KNEE REASON FOR EXAM: Male, 59 years old. Left knee pain, patient states he hyper-extended it a while ago TECHNIQUE: 3 view(s) of the knee. COMPARISON: None. FINDINGS: Normal visualized distal femur. Spurring along the tibial spine and femoral notch. Lateral position of tibia on femur. Normal visualized proximal tibia and fibula. Normal proximal tibiofibular articulation. There is moderate to severe degenerative arthrosis of the medial femorotibial compartment with moderate joint space narrowing. There is mild degenerative arthrosis of the lateral femorotibial compartment. There is mild degenerative arthrosis of the patellofemoral articulation. There is no demonstrated joint effusion. The soft tissue structures are unremarkable. RAD/Knee 3 Views IMPRESSION: Tricompartmental degenerative changes most pronounced medial femoral tibial compartment with lateral displacement of the tibial and femur. Electronically Signed: Elinor James MD at 3:03 EDT , Service support ,
== END ==
PROVIDERS: PCP Family Medicine Geriatric Medicine; Referring Provider Family Medicine Geriatric Medicine; Visit Provider Family Medicine Geriatric Medicine
DX: M17.12 Unilateral primary osteoarthritis, left knee (principal)
CPT/HCPCS: 73562

== ENCOUNTER 2020-06-03 10:57 | Outpatient (RCR) | payer OTHER, SELFPAY ==
[2020-05-20 13:14] VITALS: BMI 53.9
== END 2020-06-03 23:59 | disposition home or self-care (01) ==
LOC: NS 10:57
PROVIDERS: PCP Family Medicine Geriatric Medicine; Visit Provider Orthopaedic Surgery
DX: Z71.3 Dietary counseling and surveillance (principal); E66.01 Morbid (severe) obesity due to excess calories; Z68.43 Body mass index [BMI] 50.0-59.9, adult
CPT/HCPCS: 97802

== ENCOUNTER 2020-06-05 09:30 | Outpatient (RCR) | payer OTHER, SELFPAY ==
--- NOTE | 2020-04-15 13:14 | HP.PTEVAL ---
Patient's Visit Information CASSI MORA is a 59 year old M referred to Physical Therapy by Dr. Dano Pearson MD with a diagnosis of COMPLETE ROTATOR CUFF TEAR OR RUPTURE RIGHT SHOULDER. Date of Evaluation: 04/15/20 Physical Therapist: Junaid Watson, PT, Cert MDT, OCS - Visit Plan Frequency: 2x /Week Duration: 12WEEKS Plan: S/P MASSIVE REPAIR RTC 03/04/20. SLING 8 WEEKS,SEE PROTOCAL FOR PROGRESSIONS. PHASE (1) PASSIVE 4-8 WEEKSM,PHASE (2) ACTIVE/ASSIST 9-12 WEEKS,PHASE (3) RESSISTED 13-15 WEEKS ,MANUAL THERPY FOR ROM,CP,/MHP - Subjective This 59 y/o male presents to physical therapy with complete RTC rupture. Patient has had shoulder pain many years. Patient reports incidant or jerking right shoulder. Patient had MRI RTC complete massive tear.Patient undwerwent s/p repair RTC 03/04/20. Patient d/c same day of surgery with sling. Seen DR last week 04/10 recommended PT . Patient states having neuropathy of 2 fingers.Patient reports limiations with all ADL'S and housework tasks.Patient surgery affects QOL.Patient to have sling on 8 weeks. 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 SOCIAL: - Objective POSTURE: mild foward posture. NEURO: intact ,denies parathesia/tingling. SKIN : inscion well approximate. PROM: supine shoulder flexion 140 degrees,abduction 145 degrees in scapation,ER 50 degrees. MMT: NT - Goals Goal 1:: Patient to be I with HEP per prtocal RTC Goal Time Frame: 12-16 Weeks Goal 2:: Patient improve PROM SHOULDER FLEXION /ABDUCTION /ER TO FULL ROM.(STG) Goal Time Frame: 6-8 Weeks Goal 3:: Patient to improve increase strength RTC 4-/5 ,DELTOID 3+/5 to improve function with ADLS' Goal Time Frame: 12-16 Weeks Goal 4:: Patient to impove quick dash by 5 -10 points or > to improve QOL. Goal Time Frame: 12-16 Weeks Goal 5:: Patient able to use arm for functional tasks above 90 degrees with ADLS' and housework tasks with min limiations Goal Time Frame: 12-16 Weeks - Rehabilitation Potential Physical Therapy Diagnosis: This patient had massive tear of RTC thus underwent s/p RTC repair on 03/04 with decrease ROM ,strength and function thus will benifit from skilled PT Services Rehabilitation Potential: Good - Anticipated Interventions Patient/Client Instruction: Educate patient on: Condition, Plan of Care For the Purpose of:: To decrease pain, To increase ROM, To improve muscle performance and motor function, To improve ability to perform ADL's, To increase tolerance to activity/condition/position, To improve performance and independence with ADL's, To improve ability of physical actions for home/community/work/leisure, To improve health of tissue, To decrease soft tissue restriction, To increase flexibility/ROM, To assume or resume ADL's, To improve tolerance to ADL's Therapeutic Exercise to Include: Strength training, Postural training, Passive ROM, Active ROM, Scapular Strength/Stabilization Comment: SEE PROTOCAL FOR PHASES I-3 For the Purpose of:: To decrease pain, To increase ROM, To improve muscle performance and motor function, To improve ability to perform ADL's, To increase tolerance to activity/condition/position, To improve ability of physical actions for home/community/work/leisure, To improve health of tissue, To decrease soft tissue restriction, To increase flexibility/ROM, To assume or resume ADL's, To improve ability to perform tasks related to life management, To improve tolerance to ADL's TENS: Yes IF ES: Yes Cryotherapy (ice pack, ice massage): Yes Thermo therapy (hot pack): Yes For the Purpose of:: To decrease pain, To increase ROM, To improve nutrient delivery to tissue, To increase oxygenation perfusion, To improve health of tissue, To decrease soft tissue restriction Thank you for the opportunity to evaluate your patient. For Medicare and Medicare HMO plans, please review the plan of care and approve it. It will need to be FAXED BACK to us at [phone] for Medicare purposes. For Medicare only, by signing this I certify the plan of care. Please let me know if there are questions or concerns regarding this plan of care. Physician Signature: Date:
--- NOTE | 2020-09-04 09:22 | HP.PT.NRP ---
CASSI MORA was seen in my office for initial evaluation on 04/15/20. The following Plan of Care was established for this patient: Initial Frequency: 2x /Week Initial Duration: 12WEEKS Patient/Client Instruction: Educate patient on: Condition, Plan of Care For the Purpose of:: To decrease pain, To increase ROM, To improve muscle performance and motor function, To improve ability to perform ADL's, To increase tolerance to activity/condition/position, To improve performance and independence with ADL's, To improve ability of physical actions for home/community/work/leisure, To improve health of tissue, To decrease soft tissue restriction, To increase flexibility/ROM, To assume or resume ADL's, To improve tolerance to ADL's Therapeutic Exercise to Include: Strength training, Postural training, Passive ROM, Active ROM, Scapular Strength/Stabilization For the Purpose of:: To decrease pain, To increase ROM, To improve muscle performance and motor function, To improve ability to perform ADL's, To increase tolerance to activity/condition/position, To improve ability of physical actions for home/community/work/leisure, To improve health of tissue, To decrease soft tissue restriction, To increase flexibility/ROM, To assume or resume ADL's, To improve ability to perform tasks related to life management, To improve tolerance to ADL's TENS: Yes IF ES: Yes Cryotherapy (ice pack, ice massage): Yes Thermo therapy (hot pack): Yes For the Purpose of:: To decrease pain, To increase ROM, To improve nutrient delivery to tissue, To increase oxygenation perfusion, To improve health of tissue, To decrease soft tissue restriction This patient was last seen in our office . Pertinent comments regarding their Physical therapy will appear below: Patient sen for PT for massive RTC repair per protocal ROM and intiation of light strengthening,thus is d/c At this point I will be discontinuing this patient from physical therapy. I would be happy to see this patient again in the future if found appropriate by the physician. Thank you! Junaid Watson, PT, Cert MDT, OCS
== END 2020-06-05 19:00 | disposition home or self-care (01) ==
LOC: PT 09:30
PROVIDERS: PCP Family Medicine Geriatric Medicine; Visit Provider Orthopaedic Surgery
DX: M75.121 Complete rotator cuff tear or rupture of right shoulder, not specified as traumatic (principal)
CPT/HCPCS: 97110; 97140; 97162

== ENCOUNTER 2020-06-11 09:27 | Day surgery (SDC) | payer OTHER, SELFPAY ==
[2020-05-20 13:14] VITALS: BMI 53.9
[2020-06-11] VITALS (7 sets, daily range): BP systolic 81–133; BP diastolic 44–82; PULSE 70–89; RESP 16–20; TEMP 36.1–36.6; O2SAT 94–100; BMI 59.1
[2020-06-11 10:25] LABS: Bedside Glucose 193 mg/dL (70-110)
[2020-06-11] MEDS: morphine PF (epidural) 5 MG/10 ML Vial (10:32)
[2020-06-11] MEDS: MethylPREDNISolone Acetate 80 MG/ML Vial (10:32)
--- NOTE | 2020-06-11 10:33 | PCM.HP.BLA ---
History and Physical Date of Admission: 06/11/20 Intake Vital Signs 05/20/20 Height 5 ft 9 in 05/20/20 Weight: 388 lb 05/20/20 BMI 57.2 Intake Visit Reasons: LEFT KNEE Is patient in pain?: Yes Allergies No Known Allergies Allergy (Verified 05/20/20 12:59) Medications Oxycodone HCl 5 mg PO Q6H PRN PRN 02/08/19 [History Confirmed 03/17/19] Baclofen [Lioresal] 10 mg PO TIDCM PRN #90 tab 02/10/19 [Rx Confirmed 03/17/19] Acetaminophen [Tylenol] 1,000 mg PO Q8 tab 05/05/19 [Rx] Bisoprolol Fumarate [Zebeta (Beta Fernanda)] 5 mg PO DAILY #30 tab 05/05/19 [Rx] Icy Hot 1 applicatio TOPICAL TID 05/05/19 [Rx] Levothyroxine [Synthroid] 88 mcg PO DAILY@0600 #30 tab 05/05/19 [Rx Confirmed 05/20/20] Lisinopril [Zestril] 20 mg PO DAILY #30 tab 05/05/19 [Rx Confirmed 05/20/20] Polyethylene Glycol 3350 [Miralax] 17 gm PO DAILY PRN #30 packet 05/05/19 [Rx] Senna/Docusate Sodium [Senokot-S] 2 tab PO BID PRN #120 tab 05/05/19 [Rx] hydroCHLOROthiazide [Hydrochlorothiazide] 6.25 mg PO DAILY #30 tab 05/05/19 [Rx] metFORMIN HCl [Glucophage] 500 mg PO BIDCM #60 tab 05/05/19 [Rx] PFSH Medical History (Updated 03/17/19 @ 20:[address] Enrique Otero MD) Hyperlipidemia (Acute) Hypothyroid (Acute) RO (obstructive sleep apnea) (Acute) HTN (hypertension) (Chronic) Family History (Updated 12/27/18 @ 07:[address] Ruben Sandoval DO) Other CAD (coronary artery disease) Social History (Updated 05/20/20 @ 13:[address] Olegario Taveras DO) Smoking Status: Never smoker HPI LEFT KNEE: Details: Parts of this documentation were recorded by a scribe, this documentation accurately reflects the service provided and the decisions made by , Dr. Olegario Taveras, DO 05/20/20 0746. CASSI MORA is a 59 year old M here today new patient for left knee pain. Patient notes that he has had left knee pain for many years but states he hypertextended his knee 2 years ago which made his pain worse. Patient complains of pain over his medial knee. He has popping and clicking. Patient notes that he has to manipulate his knee and then his knee shifts And he feels something shift internally and then has relief. He has had swelling at times but doesnt right now. Patient complains of knee instability. He ambulates with a cane due to knee pain and a spine surgery. Patient has increased knee pain with ambulation. He had a cortisone injection by his PCP which was helpful for a few days. He denies any physical therapy or bracing. Patient denies any pain medications. Patient had knee xrays but denies any MRI. ROS Musc Reports joint pain, Denies numbness, Denies tingling Neuro No numbness, No tingling Ortho Exam Left Knee Skin/Wound: Yes CDI, No ecchymosis, No erythema, No swelling Knee ROM: Yes ROM-Extension -20 to 0 (-10), Yes ROM-Flexion 0-140 (105) Examination: Yes med jt line tenderness, No Lat jt line tenderness, Yes Gatito's Test (clicking), Yes TTP Pes Anserine Stability: NML: Anterior Drawer, NML: Posterior Drawer, NML: Valgus 30, NML: Varus 30 Patella Grind: Yes KNEE: skin discoloration from weeping blistersThat are now healed, pitting edema to tibial tubercle. good ankle PF/DF. no patellar instability Supplemental Info 05/07/2020 Advanced medial compartment arthrosis Assessment & Plan Problems 1. Primary osteoarthritis of left knee M17.12 2. Tear of medial meniscus of left knee, current, unspecified tear type, initial encounter S83.242A 3. Morbid obesity E66.01 4. Mechanical pain of left knee M25.562 Plan Extensive conversation had with the patient and his in regards to the advanced arthrosis on the medial side of the kneePatient is morbidly overweight and recommend primary recommendation is for weight loss. Radiographically he would be a candidate for knee arthroplasty however his BMI is 54. Patient is complaining of a mechanical knee pain with a shifting sensation that gets caught in the knee and then when it moves he has relief this would be consistent with a likely medial meniscus tear versus loose body. Discussed that he would be a potential candidate for a knee arthroscopy evaluation possible partial meniscectomy and chondroplasty however there is a high likelihood he can continue to have pain after this due to his advanced arthrosis he understands this and understands the goal would be to get rid of the mechanical block and catching that he feels.We discussed the alternatives of knee network technology instructor bracing and Visco supplementation which could still be options in conjunction. Due to his swelling and obesity I would recommend aspirin 81 mg twice daily for 2 weeks postopAnd strict ice and elevation to avoid significant swelling. Did make referral to [facility] weight in addition recommended consultation with bariatric surgery. Patient would like to proceed with arthroscopy we will need to surgical clearance. Explained the risks of TKA with obesity. Spoke with him about a knee arthroscopy and the risk of the surgery not being helpful. He will be on a aspirin 81mg bid following surgery. Reviewed the pre-operative plans with the patient. Risks and benefits of the procedure were fully explained, including but not limited to infection, neurovascular injury, continued pain, arthritis, stiffness, need for further surgery, re-injury, DVT, PE, general risks of anesthesia, and loss of limb or life. The patient understands all the risks and does wish to proceed with written consent. Follow up in 2 week post op or sooner if pain, swelling, numbness or associated symptoms, or concerns develop. All questions answered. Patient in agreement of plan. Coding Level of Care Code Off vis,new,level 3 Diagnoses Primary osteoarthritis of left knee M17.12 ??Osteoarthritis type: primary Tear of medial meniscus of left knee, current, unspecified tear type, initial encounter S83.242A ??Encounter type: initial encounter ??Meniscus tear of knee type: unspecified type ??Tear current or old: current Morbid obesity E66.01 Mechanical pain of left knee M25.562 I have re-examined the patient. There are no clinical changes since date of exam
[2020-06-11] MEDS: Lactated Ringers 1,000 ML 100 ML IV ×2 (10:44→12:57)
[2020-06-11] MEDS: Bupivacaine Mpf 0.5% 30 ML VIAL (11:40)
--- NOTE | 2020-06-11 11:41 | PCM.DC.ORTHO ---
Discharge Diet: No Restrictions Weight Bearing Status: Weight bearing as tolerated Keep extremity elevated above heart level: Operative Extremity Call your doctor if you observe: Shortness of breath, Chest pain Additional Instructions: Ice and elevate next 72 hours .keep dressing on clean and dry for 48 hours then may remove begin showering daily but do not submerge in tub or pool. After shower may apply Band-Aids . Encourage knee range of motion weightbearing as tolerated, use crutches until confident in knee then may discontinue. No strenuous activity. When not ambulating keep iced and elevated next 72 hours. Call with any questions or concerns. Allergies/Adverse Reactions: Allergies No Known Allergies Allergy (Verified 06/11/20 10:09) Medications to take at Discharge Lisinopril [Zestril] 20 mg PO DAILY #30 tab 05/05/19 metFORMIN HCl [Glucophage] 500 mg PO BIDCM #60 tab 05/05/19 Atorvastatin Calcium [Lipitor] 40 mg PO QHS 06/03/20 Citalopram [Celexa] 10 mg PO DAILY 06/03/20 Duloxetine HCl 20 mg PO DAILY 06/03/20 Levothyroxine [Synthroid] 100 mcg PO DAILY@0600 06/03/20 Acetaminophen [Tylenol Extra Strength] 1,000 mg PO Q6H PRN #60 tab 06/11/20 Oxycodone [Oxyir] 5 mg PO Q4H PRN PRN #60 tablet 06/11/20 The following prescriptions were given: Oxycodone [Oxyir] 5 mg PO Q4H PRN PRN #60 tablet PRN Reason: Pain Score 6-10 Transmission Status: Sent to [facility] Acetaminophen [Tylenol Extra Strength] 1,000 mg PO Q6H PRN #60 tab Transmission Status: Pending to [facility] Primary Care Physician: Enrique Otero Chi, MD [Primary Care Provider] - Test Results: Test results from this visit will be discussed in further detail at your follow-up appointment, if applicable. Please Follow Up With: Olegario Taveras DO - 2Weeks
--- NOTE | 2020-06-11 11:42 | OP.PCM_ITS ---
Report of Operation Date of Procedure: 06/11/20 Description of Surgical Findings:: Preop diagnosis: Left knee DJD mechanical knee pain Postoperative diagnosis: Grade 4 kissing lesion medial compartment grade 4 lateral femoral condyle grade 3 patellofemoral medial and lateral meniscus tear synovitis Procedure: Left knee arthroscopic partial medial lateral meniscectomies synovectomy chondroplasty Anesthesia: General Estimated blood loss: 5 mL Tourniquet time: 26 minutes 300 mmHg Complications: none Indication for procedure: 59-year-old male patient who is morbidly obese who did have mechanical knee pain which failed conservative treatment and did wish to proceed with an elective arthroscopic surgery to attempt to help with some of his mechanical symptoms understood that he does have significant knee arthritis however he is not a candidate for knee arthroplasty secondary to his weight and is looking for other options he understands a high probability of having continued knee pain after knee arthroscopy in regards to the arthritic component the patient did wish to proceed with an elective arthroscopic surgery to attempt to alleviate the symptoms. Risk benefits and alternatives of the procedure were reviewed including risk of bleeding infection nerve artery tissue damage need for further surgery continued pain and expected postoperative course. Procedure: The patient was met in the preoperative holding area. The operative extremity was identified by both patient and physician and family and marked. Patient was brought back to the operating room on a wheeled cart and transferred to the operating table in the supine position. Anesthesia was started. A well- padded tourniquet was placed on the operative extremity. A lower extremity leg pierson was secured to the operative extremity. The contralateral extremity was well-padded and the end of the bed was flexed to 90 degrees. The patient was prepped and draped in the usual sterile fashion. A timeout was called to ensure the proper patient, procedure, and extremity were being contemplated. 0.5% Marcaine with epinephrine was injected into the planned incisional areas under the skin only. An Esmarch was used to exsanguinate the extremity and the tourniquet was inflated. An 11 blade scalpel was used to make a stab incision in the anterior lateral portal. The arthroscope was inserted into the intercondylar notch and inflow and outflow tubes were attached. Arthroscopic visualization began. The medial compartment was entered. An 18-gauge spinal needle was used to establish the placement for anterior medial portal. An 11 blade scalpel was used to make a stab incision. Blunt probe was inserted followed by a meniscal probe. There was noted to be grade 4 kissing lesion in the medial compartment with degenerative tearing throughout the medial meniscus with partial medial meniscectomy was performed as well as chondroplasty of the medial compartment the ACL was intact some degenerative changes with layer splitting but overall intact. The lateral compartment was entered significantly tight with synovitis partial synovectomy was allowed to perform for visualization partial lateral meniscectomy of degenerative anterior horn and body lateral meniscus grade 4 wear of the lateral femoral condyle and a groove type of pattern with the use of arthroscopic biting instruments and ramona and ArthroCare wand a partial lateral meniscectomy was performed. The arthroscope was switched to the medial portal to complete the procedure. The medial and lateral gutters were inspected and were free of loose bodies. The patellofemoral joint was inspected grade 3 cartilage wear of the patellofemoral joint. There was good patellar tracking. The knee was thoroughly irrigated and drained. An intra-articular injection with 5 cc 0.5% Marcaine plain 2.5 mg of morphine and 40 mg of Depo-Medrol was injected intra-articularly. The arthroscope was removed the portals were closed with 3-0 nylon arthroscopic stitches. Followed by Xeroform 4 x 4's ABDs web roll and an Arturo wrap. The tourniquet was let down and the drapes were removed. All counts were correct. The patient was brought back to the PACU in stable condition.
[2020-06-11] MEDS: Epinephrine (1 mg/ml) 1 MG/ML VIAL (11:43)
[2020-06-11] MEDS: Bupiv/Epi 0.5% Mpf 30 ML Vial (11:44)
[2020-06-11 12:21] LABS: Bedside Glucose 166 mg/dL (70-110)
[2020-06-11] MEDS: oxyCODONE 5 MG Tablet PO (13:25)
== END 2020-06-11 14:25 | disposition home or self-care (01) ==
LOC: SDC 09:27 → AC 09:28
PROVIDERS: Anesthesiology; PCP Family Medicine Geriatric Medicine; Referring Provider Orthopaedic Surgery; Visit Provider Orthopaedic Surgery
PROC: (CPT 29870; principal; 2020-06-11 12:10)
DX: M17.12 Unilateral primary osteoarthritis, left knee (principal); S83.242A Other tear of medial meniscus, current injury, left knee, initial encounter; X58.XXXA Exposure to other specified factors, initial encounter; Y93.9 Activity, unspecified; Y92.9 Unspecified place or not applicable; Y99.9 Unspecified external cause status; M65.862 Other synovitis and tenosynovitis, left lower leg; Z20.828 Contact with and (suspected) exposure to other viral communicable diseases; E11.9 Type 2 diabetes mellitus without complications; I10 Essential (primary) hypertension; E03.9 Hypothyroidism, unspecified; E78.5 Hyperlipidemia, unspecified; G47.33 Obstructive sleep apnea (adult) (pediatric); F32.9 Major depressive disorder, single episode, unspecified; E66.01 Morbid (severe) obesity due to excess calories; Z68.43 Body mass index [BMI] 50.0-59.9, adult; Z79.84 Long term (current) use of oral hypoglycemic drugs; Z79.890 Hormone replacement therapy; Z79.899 Other long term (current) drug therapy
CPT/HCPCS: 29881; 82962; 87635; C9803; J7120; J2405; U0003

== ENCOUNTER → 2020-07-08 10:24 | Outpatient (CLI) | payer OTHER, SELFPAY ==
[2020-06-11 10:13] VITALS: BMI 59.1
[2020-07-08 12:52] LABS: Absolute Lymphocyte Count 0.95 X10^3/uL (0.83-4.51); Absolute Neutrophil Count 5.6 X10^3/uL (2.0-7.7); Basophil# 0.03 X10^3/uL; Basophil% 0.4 % (0-1); Eosinophil# 0.11 X10^3/uL; Eosinophils% 1.5 % (0-5); Hematocrit 43.2 % (40-54); Hemoglobin 13.7 g/dL (13.0-16.5); Lymphocyte # 0.95 X10^3/ul (4.0); Lymphocyte % 12.9 % (19-41); Mean Corp Hgb Conc 31.7 g/dL (32-36); Mean Corpuscular Hgb 31.6 pg (27.0-32.0); Mean Corpuscular Volume 99.8 fL (80-94); Mean Platelet Vol. 11.3 fl (6.2-12.0); Monocyte# 0.59 X10^3/uL; NRBC Flagged by Analyzer 0 % (0-5); Neutrophil # 5.61 X10^3/uL (2.7-7.7); Platelet Count 235 K/mm3 (150-450); RBC Distribution Width CV 13.7 % (11.6-14.6); RBC Distribution Width SD 49.5 fl (35.1-43.9); Red Blood Count 4.33 M/mm3 (4.6-6.2); White Blood Count 7.4 K/mm3 (4.4-11.0)
[2020-07-08 13:51] LABS: ALB/GLOB Ratio 0.8 RATIO (0.9-2.4); AST(SGOT) 44 U/L (15-37); Alanine Aminotransfer ALT/SGPT 87 U/L (16-61); Albumin, Serum 3.3 g/dL (3.2-5.0); Alkaline Phosphatase 134 U/L (45-117); Anion Gap 7 (5-15); BUN 16 mg/dL (7-18); BUN/Creat Ratio 13.3 RATIO (10-20); Calcium,Total 8.7 mg/dL (8.5-10.1); Chloride 99 mmol/L (98-107); EST Glomerular Filtration Rate 66 mL/min (>60); Est Glom Filt Rate - Afr Amer 80 mL/min (>60); Globulin 3.9 g/dL (2.2-4.2); Glucose 298 mg/dL (74-106); Potassium 4.5 mmol/L (3.5-5.1); Protein, Total 7.2 g/dL (6.4-8.2); Sodium Level 134 mmol/L (136-145); Thyroid Stim Hormone (TSH) 1.81 uIU/mL (0.358-3.74)
== END ==
PROVIDERS: PCP Family Medicine Geriatric Medicine; Visit Provider Family Medicine Geriatric Medicine
DX: E11.65 Type 2 diabetes mellitus with hyperglycemia (principal); I10 Essential (primary) hypertension; E03.9 Hypothyroidism, unspecified
CPT/HCPCS: 36415; 80053; 84443; 85025

== ENCOUNTER → 2020-07-12 08:54 | Outpatient (CLI) | payer OTHER, SELFPAY ==
[2020-07-09 09:22] VITALS: BMI 53.9
--- NOTE | 2020-07-12 09:00 | US_ITS ---
STUDY: ABDOMINAL ULTRASOUND - RIGHT UPPER QUADRANT REASON FOR VISIT: Male, 59 years old ABNORMAL ALT TECHNIQUE: Ultrasound evaluation of the right upper quadrant was performed with real-time and static malin-scale imaging. TECHNICAL QUALITY: Limited. Examination limited by bowel gas. COMPARISON: None. FINDINGS: Liver: The liver measures 21 cm. There is increased echogenicity consistent with fatty infiltration. The bile ducts are within normal limits. There is hepatic color flow. The direction of portal flow is hepatopetal. There is no demonstrated mass lesion. Gallbladder: Normal distended gallbladder. The gallbladder wall measures 5 mm. There is a negative sonographic Vernon''s sign. There is no pericholecystic fluid. There are no gallstones. Common Bile Duct (C.B.D.): Not clearly visualized Pancreas: Normal size of the head, body and tail of the pancreas. There is normal echogenicity of the pancreas. There is no demonstrated pancreatic mass or cyst. Right Kidney: There is hypertrophy of the right kidney. The right kidney measures 16.1 cm. Normal renal cortex. The right cortex measures 2.1 cm. There is no demonstrated renal mass or cyst. There is no right hydronephrosis. US/Liver IMPRESSION: Hepatomegaly with hepatic steatosis. Common bile duct is not clearly visualized due to overlying bowel gas. Hypertrophy of the right kidney Electronically Signed: Juancarlos Pritchard DO at 11:01 EST Tel , Service support ,
== END ==
PROVIDERS: PCP Family Medicine Geriatric Medicine; Referring Provider Family Medicine Geriatric Medicine; Visit Provider Family Medicine Geriatric Medicine
DX: R74.8 Abnormal levels of other serum enzymes (principal)
CPT/HCPCS: 76705

== ENCOUNTER → 2020-07-24 08:14 | Outpatient (CLI) | payer OTHER, SELFPAY ==
[2020-07-09 09:22] VITALS: BMI 53.9
--- NOTE | 2020-07-24 08:15 | US_ITS ---
STUDY: ABDOMINAL ULTRASOUND - ELASTOGRAPHY REASON FOR VISIT: Male, 59 years old. Fatty attrition of the liver. TECHNIQUE: Liver stiffness measurements were obtained on a Fit&Color RS 85 ultrasound machine using a CA 1-7 probe following the SRU guidelines. 3 measurements were obtained using a 2-D-SWE method. TheI QR/M was 52%. This is a nondiagnostic study. TECHNICAL QUALITY: Limited. Examination limited due to obesity. COMPARISON: None. FINDINGS: Liver: Diffuse fatty infiltration of the liver. US/Elastography Parenchyma/Organ IMPRESSION: Diffuse fatty infiltration of the liver. The examination was limited due to the patient''s body habitus. The study is nondiagnostic. Electronically Signed: Boston Clay, at 13:34 EST , Service support ,
== END ==
PROVIDERS: PCP Family Medicine Geriatric Medicine; Referring Provider Family Medicine Geriatric Medicine; Visit Provider Family Medicine Geriatric Medicine
DX: K76.0 Fatty (change of) liver, not elsewhere classified (principal)
CPT/HCPCS: 76981

== ENCOUNTER 2020-08-26 12:33 | Inpatient (IN) | payer BC, MEDICAID, SELFPAY ==
[2020-08-26] VITALS (13 sets, daily range): BP systolic 113–165; BP diastolic 64–92; PULSE 82–105; RESP 17–24; TEMP 35.2–39.5; O2SAT 86–96; BMI 57.2; BMI 55.4; BMI 55.5
--- NOTE | 2020-08-26 12:50 | EKG12_ITS ---
Test Reason : FEVER Blood Pressure : / mmHG Vent. Rate : 077 BPM Atrial Rate : 077 BPM P-R Int : 140 ms QRS Dur : 086 ms QT Int : 384 ms P-R-T Axes : 024 034 067 degrees QTc Int : 434 ms Normal sinus rhythm Normal ECG Confirmed by CECILIO HARO, IMAN ([id number]), assistant editor CHAI ENGEL ([id number]) on 08/28/2020 8:19:57 AM Referred By: ANALIA Confirmed By:IMAN HERNANDES MD
--- NOTE | 2020-08-26 12:51 | ED.DCSUM_ITS ---
History of Present Illness Chief Complaint: Fever Informant: Patient Narrative: 59 yo M with past medical history of hypertension and diabetes presents with concern for viral syndrome. States that it began approximately 1 week ago. Patient began getting a headache which is worsened since that time. Patient is also had a significant cough. Admits to nausea and vomiting. Admits to malaise. Denies any significant shortness of breath. States his appetite is poor. Feels he is dehydrated. No sick contacts. Patient is not a current smoker. Past Medical History - Allergies and Home Meds Allergies/Adverse Reactions: Allergies No Known Allergies Allergy (Verified 08/26/20 12:33) Primary Care Physician: Enrique Otero Chi, MD [Primary Care Provider] - Prior records reviewed: Yes Past Medical History: - - HTN and DMII Surgical History: - - Thumb cyst removal, Plantar fasciitis surgery. Lives: Spouse/ Significant Other Smoking Status: Never smoker Alcohol: None Drugs: None - Family History Maternal Family History: Family History (Last Updated 12/27/18 @ 07:[address] Ruben Sandoval DO) Other CAD (coronary artery disease) Family History: Reports: No pertinent history Paternal Family History: Family History (Last Updated 12/27/18 @ 07:[address] Ruben Sandoval DO) Other CAD (coronary artery disease) Family History: Reports: No pertinent history Review of Systems General: Reports: Chills, Fever, Malaise. Denies: Sweats Eyes: Denies: Visual changes - bilaterally, Diplopia ENT: Denies: Rhinorrhea, Sore throat Cardiovascular: Denies: Chest pain, Palpitations Respiratory: Reports: Cough. Denies: Dyspnea, Dyspnea on exertion Gastrointestinal: Denies: Abdominal pain, Nausea, Vomiting, Diarrhea, Melena, Hematochezia Genitourinary: Denies: Dysuria, Hematuria, Frequency Musculoskeletal: Denies: Back pain, Extremity Pain Skin: Denies: Rash, Wounds Neurological: Reports: Headache, Weakness. Denies: Numbness Physical Exam Vital Signs/Narrative: Vital Signs Temp Pulse Resp BP Pulse Ox 08/26/20 12:34 95.4 F L 84 20 H 113/80 92 Inital Vital Signs reviewed: Yes General: Well nourished, Well developed, No Acute Distress Head: Normocephalic, Atraumatic Eyes: Perrl, EOMI ENT: Moist mucous membranes, No rhinorrhea Neck: Supple, Nontender Cardiovascular: Regular rate, Regular rhythm, No murmurs Respiratory: No distress, CTA bilaterally, Chest nontender Abdomen: Soft, Nontender, Nondistended, Normal bowel sounds Back: Nontender, Normal Inspection Extremities: Nontender, No edema Skin: Normal color, No rash Neurological: Alert, Oriented x3, Cranial nerves II-XII grossly intact, Normal Strength, Normal Sensation Psychological: Normal affect, Normal Mood Diagnostic/Tx/Re-eval Chest X-Ray - ED: 1 View, Read by ED Physician, Read by Radiologist, Left Infiltrate Clinical Impression(s) from Imaging Studies Chest X-Ray 08/26/20 13:12 IMPRESSION: Dense infiltrate in the left midlung. Mild increased markings in the right upper lobe. Radiographic follow-up is recommended until clearing. Electronically Signed: Boston Danna, at 13:58 EST , Service support , Laboratory Data 08/26/20 08/26/20 08/26/20 13:30 13:30 13:30 WBC 6.5 RBC 4.29 L Hgb 13.7 Hct 40.9 MCV 95.3 H MCH 31.9 MCHC 33.5 RDW Std Deviation 46.1 H RDW Coeff of Kina 13.1 Plt Count 186 MPV 10.6 Immature Gran % (Auto) 0.600 Neut % (Auto) 85.1 H Lymph % (Auto) 9.2 L Caroline % (Auto) 4.9 Eos % (Auto) 0.0 Baso % (Auto) 0.2 Absolute Neuts (auto) 5.6 Absolute Lymphs (auto) 0.60 L Nucleated RBC % 0 Differential Comment COMMENT Sodium 129 L Potassium 4.3 Chloride 94 L Carbon Dioxide 27.0 Anion Gap 8 BUN 16 Creatinine 1.28 Estim Creat Clear Calc 62.14 Est GFR (MDRD) Af Amer 74 Est GFR (MDRD) Non-Af 61 BUN/Creatinine Ratio 12.5 Glucose 234 H Lactic Acid 1.4 Calcium 8.5 Total Bilirubin 0.40 AST 82 H ALT 66 H Alkaline Phosphatase 128 H Troponin I 0.030 C-React Prot Ext Range 314.00 H Total Protein 7.1 Albumin 2.3 L Globulin 4.8 H Albumin/Globulin Ratio 0.5 L - Rhythm Strip Rhythm Strip: Sinus Rhythm Rate: 77 Ectopy: None - EKG Initial EKG Interpretation: Sinus Rhythm - At 77 bpm. MT interval 140 ms. QTC of 434 ms. No evidence of acute ischemia. - Medical Decision Making Patient appears ill but nontoxic. Patient requiring 2 to 3 L by nasal cannula. Chest x-ray concerning for left-sided infiltrate. Patient given Rocephin and azithromycin. Blood cultures were drawn. Coronavirus negative. Given the wedge-shaped of the patient's infiltrate CTA will be done to rule out pulmonary embolism. Patient will be signed out to oncoming physician Dr. Pearce at 1508. Patient stable at time of transition of care. ED Disposition - Plan for ED Patient: Referrals: Enrique Otero Chi, MD [Primary Care Provider] -
--- NOTE | 2020-08-26 13:12 | RAD_ITS ---
STUDY: X-RAY CHEST REASON FOR EXAM: Male, 59 years old. FEVER AND HEADACHE SINCE 08/19 TECHNIQUE: Single AP portable view of the chest. COMPARISON: Comparison is made with prior study dated 12/28/2018. FINDINGS: EKG electrodes are seen. Dense infiltrate is seen in the left midlung. Mild increased markings are also seen in the lateral aspect of the right upper lobe. Radiographic follow-up is recommended until resolution. Normal size heart. Normal mediastinum and miriam. Normal visualized pulmonary arteries. Normal visualized aortic arch and descending thoracic aorta. Normal visualized thoracic spine. Normal visualized ribs, clavicles, and shoulders. There is no demonstrated abnormality of the visualized soft tissue structures of the upper abdomen. RAD/Chest 1 View (Portable) IMPRESSION: Dense infiltrate in the left midlung. Mild increased markings in the right upper lobe. Radiographic follow-up is recommended until clearing. Electronically Signed: Boston Clay, at 13:58 EST , Service support ,
--- NOTE | 2020-08-26 13:27 | CT_ITS ---
STUDY: CTA CHEST REASON FOR EXAM: Male, 59 years old. DYSPNEA, FEVER, HEADACHE SINCE 08/19 RADIATION DOSAGE (If Supplied By Facility): CTDIvol = ( 21.43 ) mGy, DLP = ( 791.05 ) mGycm TECHNIQUE: The examination was performed with the intravenous administration of 100cc ISOVUE 370. Post-processing of the angiographic images was performed, with multiplanar reformation and 3D reconstruction. Individualized dose optimization techniques were used for this CT. COMPARISON: Comparison is made with prior radiograph done earlier today. FINDINGS: Multiple small intraluminal defects seen in branches of the upper lobe pulmonary arteries and confluence of pulmonary emboli. Several small intraluminal filling defects are also seen in the lower lobe pulmonary arterial branches. Normal thoracic aorta and visualized great vessels. There is no demonstrated aortic dissection. Normal heart and pericardium. There are visualized mediastinal lymph nodes, which are within normal size limits, and with normal morphology. Normal hilar regions. Normal visualized trachea and bronchi. The lungs are well expanded. Dense consolidation with air bronchograms in the posterior aspect of the left upper lobe. Dense infiltration in the posterior segment of the left lower lobe. Focal infiltrate in the lateral posterior aspect of the right upper lobe. Follow-up is recommended. Normal pleura. Normal chest wall structures. There are degenerative changes of thoracic spine. Normal visualized upper abdomen. CT/CTA Chest W/WO Contrast IMPRESSION: Multiple bilateral small pulmonary emboli as described. Dense infiltration in the left upper lobe as well as in the left lower lobe and focal infiltrate in the right upper lobe. Radiographic follow-up is recommended. Electronically Signed: Boston Clay, at 15:32 EST , Service support ,
[2020-08-26 14:06] LABS: Absolute Neutrophil Count 5.6 X10^3/uL (2.0-7.7); Basophil# 0.01 X10^3/uL; Basophil% 0.2 % (0-1); Hematocrit 40.9 % (40-54); Hemoglobin 13.7 g/dL (13.0-16.5); Lymphocyte % 9.2 % (19-41); Mean Corp Hgb Conc 33.5 g/dL (32-36); Mean Corpuscular Hgb 31.9 pg (27.0-32.0); Mean Corpuscular Volume 95.3 fL (80-94); Mean Platelet Vol. 10.6 fl (6.2-12.0); Monocyte# 0.32 X10^3/uL; Monocyte% 4.9 % (0-10); NRBC Flagged by Analyzer 0 % (0-5); Neutrophil # 5.56 X10^3/uL (2.7-7.7); Neutrophil % 85.1 % (47-70); POSITIVE DIFFERENTIAL YES; Platelet Count 186 K/mm3 (150-450); RBC Distribution Width CV 13.1 % (11.6-14.6); RBC Distribution Width SD 46.1 fl (35.1-43.9); Red Blood Count 4.29 M/mm3 (4.6-6.2); White Blood Count 6.5 K/mm3 (4.4-11.0)
[2020-08-26 14:08] LABS: Differential Indicated SCAN CRITERIA MET
[2020-08-26 14:29] LABS: ALB/GLOB Ratio 0.5 RATIO (0.9-2.4); AST(SGOT) 82 U/L (15-37); Alanine Aminotransfer ALT/SGPT 66 U/L (16-61); Albumin, Serum 2.3 g/dL (3.2-5.0); Alkaline Phosphatase 128 U/L (45-117); Anion Gap 8 (5-15); BUN 16 mg/dL (7-18); BUN/Creat Ratio 12.5 RATIO (10-20); Calcium,Total 8.5 mg/dL (8.5-10.1); Chloride 94 mmol/L (98-107); Creatinine, Serum 1.28 mg/dL (0.70-1.30); EST Glomerular Filtration Rate 61 mL/min (>60); Est Glom Filt Rate - Afr Amer 74 mL/min (>60); Estimated Creatinine Clearance 62.14 ml/min; Globulin 4.8 g/dL (2.2-4.2); Glucose 234 mg/dL (74-106); Lactic Acid 1.4 mmol/L (0.4-1.9); Potassium 4.3 mmol/L (3.5-5.1); Protein, Total 7.1 g/dL (6.4-8.2); Sodium Level 129 mmol/L (136-145)
[2020-08-26] MEDS: Ceftriaxone 1 GM/50 ML BAG IV (14:46)
--- NOTE | 2020-08-26 15:59 | HP.PCM_ITS ---
Problem List (1) Bilateral pneumonia Status: Acute Qualifiers: Pneumonia type: due to unspecified organism Lung location: unspecified part of lung Qualified Code(s): J18.9 - Pneumonia, unspecified organism (2) Suspected COVID-19 virus infection Status: Acute (3) Morbid obesity Status: Chronic (4) Diabetes mellitus, type II Status: Chronic Qualifiers: Diabetes mellitus fdc insulin use: without fdc use Diabetes mellitus complication status: with other specified complication Qualified Code(s): E11.69 - Type 2 diabetes mellitus with other specified complication (5) Obstructive sleep apnea Status: Chronic (6) Hyperlipidemia Status: Chronic Qualifiers: Hyperlipidemia type: unspecified Qualified Code(s): E78.5 - Hyperlipidemia, unspecified (7) Hypothyroidism Status: Chronic Qualifiers: Hypothyroidism type: unspecified Qualified Code(s): E03.9 - Hypothyroidism, unspecified (8) Chronic back pain Status: Chronic Qualifiers: Back pain location: back pain in unspecified location Back pain laterality: unspecified Qualified Code(s): M54.9 - Dorsalgia, unspecified; G89.29 - Other chronic pain (9) Hypertension Status: Chronic Qualifiers: Hypertension type: essential hypertension Qualified Code(s): I10 - Essential (primary) hypertension History of Present Illness Date of Admission: 08/26/20 Chief Complaint: Dyspnea, cough The patient is a 59 y/o M w/ PMHx: Morbidly obese, HTN, HLD, Diabetes mellitus type II who presents to the [facility] ED on 08/26/20 with history of ongoing issues with malaise, fatigue, cough, dyspnea, headaches, fever and chills as well as loose stools worsening over 1 week, worse with exertion with no recent ill contacts and no COVID exposures. He notes his at home has been well with no specific illness or any complaints. He does note that the headaches, fevers, chills and body aches have lessened but were more severe initially and he has had now worsened coughing, dyspnea and some pleuritic chest discomfort. No recent car drives but not an active individual per his report. Patient denies any alteration to sense of taste or smell. Work-up in the ED included T 98.5, heart rate 82, BP 153/90, respiratory rate 24, noted to be 86% on room air with improvement to 96% on 2 L nasal cannula, CBC with 6.5, hemoglobin 13.7, platelet 186 with no specific left shift with lymphopenia, CMP with sodium 129, chloride 94, glucose 234, lactic acid 1.4, AST/ALT 82/66, alk phos 128, troponin 0.03, CRP 314, rapid Covid antigen negative, blood culture x2 pending per ED, chest x-ray with dense infiltrate left midlung with mild increased markings right upper lobe, CTPA with multiple bilateral small pulmonary emboli, dense infiltration left upper lobe as well as left lower lobe and focal infiltrate right upper lobe. In the ED patient ministered normal saline, Xarelto, Rocephin, azithromycin, Tylenol. Past Medical History Past Medical History (Chronic Problems): Chronic Problems (Last Updated 12/27/18 @ 07:[address] Ruben Sandoval DO) Obstructive sleep apnea (Chronic) Hyperlipidemia (Chronic) Hypothyroidism (Chronic) Psoas tendinitis (Chronic) Morbid obesity (Chronic) Headache (Chronic) Osteoarthritis (Chronic) Morbid obesity (Chronic) Diabetes mellitus, type II (Chronic) History of left psoas muscle injury (Chronic) Chronic back pain (Chronic) Muscle spasm (Chronic) Hypertension (Chronic) Muscle tear (Chronic) Medical History: Medical History (Last Updated 12/27/18 @ 07:[address] Ruben Sandoval DO) Hyperlipidemia E78.5 Hypothyroid E03.9 RO (obstructive sleep apnea) G47.33 HTN (hypertension) I10 Allergies No Known Allergies Allergy (Verified 08/26/20 12:33) Home Medications: Ambulatory Orders Medication Instructions Recorded Lisinopril [Zestril] 20 mg PO DAILY #30 tab 05/05/19 metFORMIN HCl [Glucophage] 500 mg PO BIDCM #60 tab 05/05/19 Levothyroxine [Synthroid] 100 mcg PO DAILY@0600 06/03/20 Surgical History: - - Thumb cyst removal, Plantar fasciitis surgery, lumbar back surgery, left knee arthroscopic surgery. Psychiatric History: No pertinent psych hx Lives: Spouse/ Significant Other Smoking Status: Never smoker Alcohol: None Drugs: None - *Family History Maternal Family History: Family History (Last Updated 12/27/18 @ 07:[address] Rubne Sandoval DO) Other CAD (coronary artery disease) History Items: Diabetes, Heart Disease, Hypertension Paternal Family History: Family History (Last Updated 12/27/18 @ 07:[address] Ruben Sandoval, ) Other CAD (coronary artery disease) History Items: Heart Disease Review of Systems Constitutional: Reports: Anorexia, Chills, Fever, Malaise, Weakness, Fatigue. Denies: Weight Change HEENT: Reports: Head Aches. Denies: Sinus Congestion, Sinus Drainage Cardiovascular: Denies: Chest Pain, Palpitations Respiratory: Reports: Cough, Shortness of Breath, Shortness of breath at rest, Shortness of breath upon exertion. Denies: Sputum production, Wheezing Gastrointestinal: Reports: Abdominal Pain, Diarrhea, Nausea. Denies: Vomiting Genitourinary: Denies: Dysuria Musculoskeletal: Reports: Back Pain, Joint Pain, Muscle pain. Denies: Joint Tenderness Skin: Denies: Rash, Wounds Neurological: Denies: Numbness, Tingling, Focal weakness Psychiatric: Denies: Anxiety, Depression, Homicidal Ideations, Suicidal Ideations Hematologic/ Lymphatic: Denies: Easy Bruising, Easy Bleeding VTE Information - Inpt Only VTE Present on Admission: No VTE Mechan Device Prophylaxis: SCD's VTE Pharm Prophylaxis ordered?: No VTE Suspected: Suspected PE - Initiated on Xarelto regimen for PE noted in the ED. Patient Problems: Active and Suspected Problems (Last Updated 12/27/18 @ 07:[address] Ruben Sandoval, DO) Bilateral pneumonia (Acute) Suspected COVID-19 virus infection (Acute) Subjective: Patient seated upright in the ED bed, fatigued, ill-appearing, increased work of breathing accessory muscle usage, evident moderate respiratory distress. Objective: Physical Examination: General: awake, alert, oriented x 3 and cooperative, seated upright in the ED bed, fatigued and ill-appearing, increased work of breathing and accessory muscle usage evident, distress noted. Skin: normal color, turgor, no icterus, cyanosis except noted stasis skin changes.. HEENT: AT/NC, EOMI, PERRLA, dry MM, unable to discern carotid bruits or JVD secondary to thickened neck. Lungs: Significantly diminished breath sounds diffusely, greater bases, increased work of breathing accessory muscle usage evident, evident distress, no rales, rhonchi or wheezing. Heart: Regular rate and rhythm; no gallop, rub audible. Abdomen: soft, morbidly obese, mild generalized discomfort with palpation but no rebound or guarding, unable to discern distention, hyperactive bowel sounds, unable to discern HSM secondary to morbidly obese habitus. Extremities: no cyanosis or clubbing, stasis changes, bilateral ankle to distal hill edema. Neurological: patient awake, alert, oriented as noted; cognitive function near intact; pupils equally reactive to light and accomodation; cranial nerves II-XII grossly normal, moving all 4 extremities, no focal deficits, strength severely global decrease secondary to acute presentation. Psychiatric: affect appears fatigued, ill-appearing, respiratory distress as noted, no acute evidence of depressive or anxiety feelings. - Physical Exam Vitals/I&O's: Vital Signs Temp Pulse Resp BP Pulse Ox 98.5 F 82 24 H 153/90 H 96 08/26/20 14:46 08/26/20 14:46 08/26/20 14:46 08/26/20 14:46 08/26/20 14:46 Oxygen Flow Rate (L/min) 2 Oxygen Delivery Method Nasal Cannula Weight: 388 lb Body Mass Index (BMI) 57.2 Intake and Output for Last 24 Hours 08/24/20 08/25/20 08/26/20 23:59 23:59 23:59 Intake Total 550 / 550 Balance 550 / 550 Microbiology Past 72 Hours 08/26/20 13:30 Mucosa - Nose SARS-CoV-2 Antigen (Rapid) - Final Laboratory Results 08/26/20 13:30: WBC 6.5, RBC 4.29 L, Hgb 13.7, Hct 40.9, MCV 95.3 H, MCH 31.9, MCHC 33.5, RDW Std Deviation 46.1 H, RDW Coeff of Kina 13.1, Plt Count 186, MPV 10.6, Immature Gran % (Auto) 0.600, Neut % (Auto) 85.1 H, Lymph % (Auto) 9.2 L, [place] % (Auto) 4.9, Eos % (Auto) 0.0, Baso % (Auto) 0.2, Absolute Neuts (auto) 5.6, Absolute Lymphs (auto) 0.60 L, Nucleated RBC % 0, Differential Comment COMMENT 08/26/20 13:30: Sodium 129 L, Potassium 4.3, Chloride 94 L, Carbon Dioxide 27.0, Anion Gap 8, BUN 16, Creatinine 1.28, Estim Creat Clear Calc 62.14, Est GFR (MDRD) Af Amer 74, Est GFR (MDRD) Non-Af 61, BUN/Creatinine Ratio 12.5, Glucose 234 H, Calcium 8.5, Total Bilirubin 0.40, AST 82 H, ALT 66 H, Alkaline Phosphatase 128 H, Troponin I 0.030, C-React Prot Ext Range 314.00 H, Total Protein 7.1, Albumin 2.3 L, Globulin 4.8 H, Albumin/Globulin Ratio 0.5 L 08/26/20 13:30: Lactic Acid 1.4 Assessment/Plan All Active Problems (Last Updated 12/27/18 @ 07:[address] Ruben Sandoval, DO) Right shoulder pain (Acute) Abscess in epidural space of lumbar spine (Acute) Lumbar discitis (Acute) Psoas abscess (Acute) Bilateral pneumonia (Acute) Suspected COVID-19 virus infection (Acute) MSSA bacteremia (Acute) The patient is a 59 y/o M w/ PMHx: Morbidly obese, HTN, HLD, Diabetes mellitus type II who presents to the [facility] ED on 08/26/20 with history of ongoing issues with malaise, fatigue, cough, dyspnea, headaches, fever and chills as well as loose stools worsening over 1 week, worse with exertion with no recent ill contacts and no COVID exposures. 1. Acute Hypoxic Respiratory Failure secondary to BL Pneumonia and BL PEs suspected secondary to Acute Viral Syndrome, COVID-19: ED presentation with negative Covid antigen however CBC with no marked WC elevation or left shift, lymphopenia noted, given history concerning for Covid we will plan to admit to Covid unit, maintain on telemetry monitoring, request PCR Covid, maintain on oxygen with wean as tolerated to room air, PRN albuterol, recent antibiotic therapy dosing with Rocephin and azithromycin in the ED with higher suspicion for Covid however to be cautious will continue antibiotic therapy pending infectious disease evaluation or further lab/evaluation elucidation of etiology, HOB, IS parameters w/ pending sputum cultures, respiratory viral panel and urine antigens, will obtain procalcitonin, CRP, CPK, Ferritin, LDH, D-dimer for trending purposes, continue recently initiated Xarelto regimen for bilateral pulmonary emboli as noted, given possible Covid status will defer echocardiogram, continue supportive care including q 2 hour turning including prone given no prone bed availability and judicious hydration, closely monitor for worsening status for ARDS and multiorgan failure, given hypoxia in ED and higher suspicion for Covid will also add Decadron 6 mg IV daily cautiously monitoring blood sugars. 2. Diabetes mellitus type II with hyperglycemia: Hold oral home regimen, hemoglobin A1c requested, given significant elevated blood sugars and usage planned as noted #1 with steroids pending infectious disease evaluation add low- dose twice daily Lantus with further adjustments as needed, ADA diet, accu checks w/ ISS. 3. Hypertension: We will continue patient home lisinopril regimen with adjustments as needed, as needed IV hydralazine. 4. Morbid Obesity: Weight loss and lifestyle changes encouraged, nutrition consulted. 5. Hypothyroidism: Continue home synthroid regimen. 6. DVT prophylaxis: SCDs, initiated on and continued Xarelto regimen for #1. 7. CODE status: Patient CHIKI is his and living will is currently in place. Discussed CODE status at length including difference between FULL code, DNR-CCA and DNR-CC status. Following discussions about the differences in these status, requested Full Code. Advanced Care Planning Face to Face Time: 16 minutes. Inpatient E&M: 32518 Init Hosp L3 Procedures: 19002 Advncd Care Plan 30 Min
[2020-08-26] MEDS: Rivaroxaban 10 MG Tablet PO (16:35)
--- NOTE | 2020-08-26 17:05 | ED.RN ---
spoke with , Lenard for pt update
[2020-08-26 18:12] LABS: Probe Check PASS; Specimen Processing Control PASS
[2020-08-26] MEDS: 0.9% Normal Saline 1,000 ML 100 ML IV (19:04)
[2020-08-26 19:05] LABS: Ferritin 765 ng/mL (26-388); LDH 423 U/L (87-241)
[2020-08-26 19:07] LABS: D-Dimer Quantitative (DVT/PE) 4.62 FEU/ug/m (0.27-0.49)
[2020-08-26 19:12] LABS: Procalcitonin 1.05 ng/mL (0.00-0.09)
[2020-08-26] MEDS: dexAMETHasone 4 MG/ML Vial 6 MG IV (20:27)
[2020-08-26] MEDS: MELATONIN 3 MG TABLET PO (20:29)
[2020-08-26] MEDS: Acetaminophen 325 MG Tablet 650 MG PO (20:29)
[2020-08-26] MEDS: Insulin Lispro 100 UNIT/ML INSULN.PEN SC (20:52)
[2020-08-26 21:05] LABS: Allen Test Positive; Base Excess 4 mmol/L (-2 to +2); Bicarbonate 27.5 mmol/L (22-26); Blood Gas Specimen Type ART; O2 Delivery Device Cannula; PO2 59 mmHG (75-100); SITE L Radial; SO2 92 % (95-99); Total Carbon Dioxide 29 mmol/L; pH 7.46 (7.35-7.45)
[2020-08-26 21:31] LABS: Bedside Glucose 221 mg/dL (70-110)
[2020-08-27] VITALS (18 sets, daily range): BP systolic 129–161; BP diastolic 67–81; PULSE 66–103; RESP 12–26; TEMP 36.8–38; O2SAT 76–99
[2020-08-27] MEDS: Acetaminophen 325 MG Tablet 650 MG PO (04:13)
[2020-08-27] MEDS: 0.9% Normal Saline 1,000 ML 100 ML IV ×2 (04:14→16:55)
[2020-08-27 05:38] LABS: Absolute Lymphocyte Count 0.38 X10^3/uL (0.83-4.51); Absolute Neutrophil Count 5.2 X10^3/uL (2.0-7.7); Basophil# 0.01 X10^3/uL; Basophil% 0.2 % (0-1); Hematocrit 38.4 % (40-54); Hemoglobin 12.5 g/dL (13.0-16.5); Lymphocyte # 0.38 X10^3/ul (4.0); Lymphocyte % 6.4 % (19-41); Mean Corp Hgb Conc 32.6 g/dL (32-36); Mean Corpuscular Hgb 30.9 pg (27.0-32.0); Mean Platelet Vol. 10.8 fl (6.2-12.0); Monocyte# 0.28 X10^3/uL; Monocyte% 4.7 % (0-10); NRBC Flagged by Analyzer 0 % (0-5); POSITIVE DIFFERENTIAL YES; Platelet Count 177 K/mm3 (150-450); RBC Distribution Width CV 13.2 % (11.6-14.6); RBC Distribution Width SD 46.5 fl (35.1-43.9); Red Blood Count 4.04 M/mm3 (4.6-6.2); White Blood Count 5.9 K/mm3 (4.4-11.0)
[2020-08-27 05:45] LABS: Differential Indicated SCAN CRITERIA MET
[2020-08-27 06:08] LABS: ALB/GLOB Ratio 0.6 RATIO (0.9-2.4); AST(SGOT) 106 U/L (15-37); Alanine Aminotransfer ALT/SGPT 77 U/L (16-61); Albumin, Serum 2.2 g/dL (3.2-5.0); Alkaline Phosphatase 117 U/L (45-117); Anion Gap 10 (5-15); BUN 16 mg/dL (7-18); Calcium,Total 7.7 mg/dL (8.5-10.1); Chloride 92 mmol/L (98-107); Creatinine, Serum 1.23 mg/dL (0.70-1.30); EST Glomerular Filtration Rate 64 mL/min (>60); Est Glom Filt Rate - Afr Amer 77 mL/min (>60); Estimated Creatinine Clearance 64.66 ml/min; Globulin 3.6 g/dL (2.2-4.2); Glucose 302 mg/dL (74-106); Potassium 4.6 mmol/L (3.5-5.1); Protein, Total 5.8 g/dL (6.4-8.2); Sodium Level 127 mmol/L (136-145)
[2020-08-27] MEDS: Insulin Lispro 100 UNIT/ML INSULN.PEN SC ×4 (06:29→20:37)
--- NOTE | 2020-08-27 07:02 | CPS ---
RN witness severe sleep apnea in which pt's Sat dropped into 30%'s. Pt admits to sleep apnea but is noncompliant with a CPAP/BIPAP machine.. RN asked pt if he would wear a BIPAP now because he drops off to sleep midsentence. Pt agreed and BIPAP was started.
[2020-08-27 07:06] LABS: Bedside Glucose 306 mg/dL (70-110)
--- NOTE | 2020-08-27 07:17 | PN_ITS ---
Patient Problems: Active and Suspected Problems (Last Updated 12/27/18 @ 07:[address] Ruben Sandoval, DO) Bilateral pneumonia (Acute) Suspected COVID-19 virus infection (Acute) Reason for Visit: Cute hypoxic respiratory failure Subjective: Patient is a 59-year-old gentleman admitted with progressive generalized weakness fever chills and headache and loose bowel movement. Was a high suspicion for possible Covid 1910. His COVID-19 rapid antigen test was however negative. Patient was however placed under isolation whilst the PCR test was pursued. PCR came back negative patient however was placed on the isolation precautions given the high suspicion after discussion with ID Objective: GENERAL: cooperative but dyspneic at rest HEENT: Atraumatic; EYES; Anicteric, Normal Conjunctiva NECK; supple, normal thyroid, RESPIRATORY: Diminished to auscultation CARDIOVASCULAR: Regular S1 S2, GI: soft, normoactive bowel sounds, : No Renal angle tenderness; EXTREMITIES: No edema, no clubbing, MUSCULOSKELETAL: no muscle waisting NEURO: Awake; no lateralizing signs. SKIN: No Rash PSYCH; Flat affect Vitals/I&O's: Vital Signs Temp Pulse Resp BP Pulse Ox 99.8 F H 66 16 144/77 H 96 08/27/20 04:00 08/27/20 06:48 08/27/20 06:48 08/27/20 04:00 08/27/20 06:48 Oxygen Flow Rate (L/min) 1.5 Oxygen Delivery Method Nasal Cannula Weight: 171 kg Body Mass Index (BMI) 55.4 Intake and Output for Last 24 Hours 08/25/20 08/26/20 08/27/20 23:59 23:59 23:59 Intake Total 805 / 1105 1216.67 / 1216.67 Output Total 500 / 500 Balance 805 / 605 716.67 / 716.67 Microbiology Past 72 Hours 08/26/20 20:36 Mucosa - Nasopharyngeal Respiratory Panel (PCR) - Final 08/26/20 22:10 Urine, Clean Catch Legionella Antigen - Final 08/26/20 13:45 Urine, Clean Catch Streptococcus pneumoniae Antigen (M - Final 08/26/20 13:30 Mucosa - Nose SARS-CoV-2 Antigen (Rapid) - Final Laboratory Results 08/26/20 13:30: WBC 6.5, RBC 4.29 L, Hgb 13.7, Hct 40.9, MCV 95.3 H, MCH 31.9, MCHC 33.5, RDW Std Deviation 46.1 H, RDW Coeff of Kina 13.1, Plt Count 186, MPV 10.6, Immature Gran % (Auto) 0.600, Neut % (Auto) 85.1 H, Lymph % (Auto) 9.2 L, [place] % (Auto) 4.9, Eos % (Auto) 0.0, Baso % (Auto) 0.2, Absolute Neuts (auto) 5.6, Absolute Lymphs (auto) 0.60 L, Nucleated RBC % 0, Differential Comment COMMENT 08/26/20 13:30: Sodium 129 L, Potassium 4.3, Chloride 94 L, Carbon Dioxide 27.0, Anion Gap 8, BUN 16, Creatinine 1.28, Estim Creat Clear Calc 62.14, Est GFR (MDRD) Af Amer 74, Est GFR (MDRD) Non-Af 61, BUN/Creatinine Ratio 12.5, Glucose 234 H, Calcium 8.5, Total Bilirubin 0.40, AST 82 H, ALT 66 H, Alkaline Phosphatase 128 H, Troponin I 0.030, C-React Prot Ext Range 314.00 H, Total Protein 7.1, Albumin 2.3 L, Globulin 4.8 H, Albumin/Globulin Ratio 0.5 L 08/26/20 13:30: Lactic Acid 1.4 08/26/20 13:30: D-Dimer Quant (PE/DVT) 4.62 H* 08/26/20 13:30: Magnesium 2.0, Ferritin 765 H, Lactate Dehydrogenase 423 H 08/26/20 13:30: Procalcitonin 1.05 H 08/26/20 16:15: COVID-19 (YAMILET) Negative 08/26/20 20:47: POC Glucose 221 H 08/26/20 20:58: Specimen Type ART, Sample Site L Radial, pH 7.46 H, Bicarbonate Actual 27.5 H, Total CO2 29, Base Excess 4 H, O2 Saturation 92 L, ABG pCO2 39.0, ABG pO2 59 L, Jose Luis Test Positive, O2 Delivery Device Cannula, Liter Flow 2.0 08/27/20 05:12: WBC 5.9, RBC 4.04 L, Hgb 12.5 L, Hct 38.4 L, MCV 95.0 H, MCH 30.9, MCHC 32.6, RDW Std Deviation 46.5 H, RDW Coeff of Kina 13.2, Plt Count 177, MPV 10.8, Immature Gran % (Auto) 0.700, Neut % (Auto) 88.0 H, Lymph % (Auto) 6.4 L, [place] % (Auto) 4.7, Eos % (Auto) 0.0, Baso % (Auto) 0.2, Absolute Neuts (auto) 5.2, Absolute Lymphs (auto) 0.38 L, Nucleated RBC % 0 08/27/20 05:12: Sodium 127 L, Potassium 4.6, Chloride 92 L, Carbon Dioxide 25.0, Anion Gap 10, BUN 16, Creatinine 1.23, Estim Creat Clear Calc 64.66, Est GFR (MDRD) Af Amer 77, Est GFR (MDRD) Non-Af 64, BUN/Creatinine Ratio 13.0, Glucose 302 H, Calcium 7.7 L, Total Bilirubin 0.50, AST 106 H, ALT 77 H, Alkaline Phosphatase 117, Total Protein 5.8 L, Albumin 2.2 L, Globulin 3.6, Albumin/Globulin Ratio 0.6 L 08/27/20 05:12: Hemoglobin A1c Pending 08/27/20 06:26: POC Glucose 306 H Current Medications Acetaminophen (Acetaminophen 325 Mg Tablet) 650 mg PO Q6H PRN PRN PRN Reason: Pain Score 1-10/Temp > 100.7 F Last Admin: 08/27/20 04:13 Dose: 650 mg Documented by: Al Hydroxide/Mg Hydroxide (Mag Hydrox/Al Hydrox/Simeth 30 Ml Udc) 30 ml PO Q6H PRN PRN PRN Reason: Gastric Burning Albuterol Sulfate (Albuterol 2.5 Mg/3 Ml Vial.Neb.) 2.5 mg INHALATION Q2H PRN PRN PRN Reason: Dyspnea, wheezing Dexamethasone Sodium Phosphate (Dexamethasone 4 Mg/Ml Vial) 6 mg IV DAILY ZARI Last Admin: 08/26/20 20:27 Dose: 6 mg Documented by: Dextrose (Dextrose 50%-Water 25 Gm/50 Ml Disp.Syrin) 0 gm IV X1 PRN; Protocol PRN Reason: Hypoglycemia Glucagon (Glucagon 1 Mg/Ml Syringe) 1 mg IM .X1 PRN PRN Reason: Hypoglycemia Guaifenesin (Guaifenesin 10 Ml Udc (200mg/10ml)) 20 ml PO Q4H PRN PRN PRN Reason: COUGH Hydralazine HCl (Hydralazine 20 Mg/Ml Vial) 10 mg IV Q4H PRN PRN PRN Reason: SBP > 160 Sodium Chloride () 1,000 mls @ 100 mls/hr IV .Q10H [facility] Last Admin: 08/27/20 04:14 Dose: 100 mls/hr Documented by: Ceftriaxone Sodium 2 gm/ (Sodium Chloride) 50 mls @ 100 mls/hr IV Q24 [facility] Azithromycin 500 mg/ Dextrose 255 mls @ 250 mls/hr IV Q24 [facility] Influenza Virus Vaccine Quadrival (Influenza Vaccine (6mos+)/Pf 0.5 Ml Syringe) 0.5 ml IM .ONCE ONE Stop: 08/27/20 10:01 Insulin Glargine (Insulin Glargine 100 Units/Ml Pen) 10 units SC BID [facility] Last Admin: 08/26/20 20:51 Dose: 10 units Documented by: Insulin Human Lispro (Insulin Lispro 100 Unit/Ml Insuln.Pen) 0 unit SC [facility]; Protocol Last Admin: 08/27/20 06:29 Dose: 6 units Documented by: Levothyroxine Sodium (Levothyroxine 100 Mcg Tablet) 100 mcg PO DAILY [facility] Lisinopril (Lisinopril 20 Mg Tablet) 20 mg PO DAILY [facility] Magnesium Hydroxide (Magnesium Hydroxide 30 Ml Udc) 30 ml PO DAILY PRN PRN PRN Reason: Constipation Melatonin (Melatonin 3 Mg Tablet) 3 mg PO QHS PRN PRN PRN Reason: INSOMNIA Last Admin: 08/26/20 20:29 Dose: 3 mg Documented by: Nitroglycerin (Nitroglycerin (Inpatient Use) 0.4 Mg Tab.Subl) 0.4 mg SUBLINGUAL Q5M PRN PRN Reason: CARDIAC/CHEST PAIN Ondansetron HCl (Ondansetron 4 Mg/2 Ml Vial) 4 mg IV Q8H PRN PRN PRN Reason: NAUSEA/VOMITING Prochlorperazine Edisylate (Prochlorperazine 10 Mg/2 Ml Vial) 5 mg IV Q4H PRN PRN PRN Reason: Breakthrough Nausea/Vomiting Psyllium Hydrophilic Mucilloid (Psyllium 1 Packet) 1 packet PO DAILY PRN PRN PRN Reason: Constipation Rivaroxaban (Rivaroxaban 15 Mg Tablet) 15 mg PO BID ZARI Last Admin: 08/26/20 20:54 Dose: Not Given Documented by: Senna/Docusate Sodium (Senna/Docusate Sodium 1 Tablet) 2 tablet PO BID PRN PRN PRN Reason: Constipation Sodium Chloride (0.9% Saline Lock 10 Ml Syringe) 10 - 40 ml IV UD PRN PRN Reason: SALINE FLUSH Throat Lozenges (Benzocaine/Menthol 1 Lozenge) 1 lozenge MUCOUS MEM Q2H PRN PRN PRN Reason: SORE THROAT STROKE Vital Signs/Narrative: Vital Signs Temp Pulse Resp BP Pulse Ox 08/27/20 06:48 66 16 76 08/27/20 04:58 87 08/27/20 04:00 99.8 F H 90 18 144/77 H 90 Medical Necessity - Tobacco Use Smoking Status: Never smoker Assessment/Plan All Active Problems (Last Updated 12/27/18 @ 07:[address] Ruben Sandoval, DO) Right shoulder pain (Acute) Abscess in epidural space of lumbar spine (Acute) Lumbar discitis (Acute) Psoas abscess (Acute) Bilateral pneumonia (Acute) Suspected COVID-19 virus infection (Acute) MSSA bacteremia (Acute) Patient is a 59-year-old gentleman admitted with progressive generalized weakness fever chills and headache and loose bowel movement. High suspicion for COVID-19. His COVID-19 rapid antigen test was however negative. Patient was however placed under isolation whilst the PCR test was pursued 1. Acute hypoxic respiratory failure bilateral pulmonary embolism with pulmonary infarction ?CTA of the chest demonstrated Multiple bilateral small pulmonary emboli as described. Dense infiltration in the left upper lobe as well as in the left lower lobe and focal infiltrate in the right upper lobe. Patient was started on systemic anticoagulation admitted to the COVID-19 cohort floor. COVID-19 PCR ordered) (came back negative). Consult was also placed to pulmonary medicine in addition to ID which have been consulted on admission patient has been started on Xarelto on admission discontinued started on heparin drip (there is some evidence heparin has some antiviral activity) 2. Suspected COVID-19 pneumonia Patient resented with with progressive generalized weakness fever chills and headache and loose bowel movement. His COVID-19 rapid antigen test was however negative. Patient was however placed under isolation whilst the PCR test was pursued. PCR came back negative patient however was placed on the isolation precautions given the high suspicion after discussion with ID 3. Diabetes mellitus type II -patient's oral hypoglycemics held. -Placed on long acting insulin, Accu-Cheks a.c. and at bedtime and covered with sliding scale insulin 4. Hypertension - Blood pressure controlled, home medications continued with dose adjustment as needed 5. Hypothyroidism - Patient is on levothyroxine home dose continued 6. Morbid obesity - With a BMI of 55.7 patient was counseled on weight reduction
--- NOTE | 2020-08-27 07:18 | CPS ---
RN called noting patient's O2 was low, patient's O2 increased to 50%
[2020-08-27 08:11] LABS: Hemoglobin A1c 9.8 % (3.8-5.6)
[2020-08-27] MEDS: dexAMETHasone 4 MG/ML Vial 6 MG IV (08:20)
[2020-08-27] MEDS: Levothyroxine 100 MCG Tablet PO (08:24)
[2020-08-27] MEDS: Rivaroxaban 15 MG Tablet PO (08:25)
[2020-08-27] MEDS: Lisinopril 20 MG Tablet PO (08:27)
[2020-08-27 09:05] LABS: Bedside Glucose 281 mg/dL (70-110)
--- NOTE | 2020-08-27 10:56 | CON.PCM_ITS ---
Problem List (1) Suspected COVID-19 virus infection Status: Acute Reason for Consult: suspected covid Consulted by: Dr. Olvera History of Present Illness: The patient is a 59 year old M with uncontrolled DM, prior h/o mssa bacteremia and epidural abscess, presented with sx starting 1/4 of cough with occasional sputum, aches, fever, fatigue, nausea, and diarrhea. No change in taste or smell. No known covid exposure, lives with who is feeling fine. Came to ED, found to have hypoxia and bilateral PEs. Admitted on dex, azithro/ceftriaxone. Full ROS performed and neg except as noted above. - Medical History Past Medical History (Chronic Problems): Chronic Problems (Last Updated 12/27/18 @ 07:[address] Ruben Sandoval, DO) Obstructive sleep apnea (Chronic) Hyperlipidemia (Chronic) Hypothyroidism (Chronic) Psoas tendinitis (Chronic) Morbid obesity (Chronic) Headache (Chronic) Osteoarthritis (Chronic) Morbid obesity (Chronic) Diabetes mellitus, type II (Chronic) History of left psoas muscle injury (Chronic) Chronic back pain (Chronic) Muscle spasm (Chronic) Hypertension (Chronic) Muscle tear (Chronic) Allergies/Adverse Reactions: Allergies No Known Allergies Allergy (Verified 08/26/20 12:33) Home Medications: Ambulatory Orders Medication Instructions Recorded Lisinopril [Zestril] 20 mg PO DAILY #30 tab 05/05/19 metFORMIN HCl [Glucophage] 500 mg PO BIDCM #60 tab 05/05/19 Levothyroxine [Synthroid] 100 mcg PO DAILY@0600 06/03/20 - Social History SMOKING STATUS:: Never smoker Vital Signs Temp Pulse Resp BP Pulse Ox 98.2 F 80 18 142/81 H 91 08/27/20 08:30 08/27/20 08:30 08/27/20 08:30 08/27/20 08:30 08/27/20 08:30 Oxygen Flow Rate (L/min) 3 Oxygen Delivery Method Bi-pap Weight: 171 kg Body Mass Index (BMI) 55.4 Microbiology Past 72 Hours 08/26/20 21:00 Gram Stain - Final Interface Orders 08/26/20 20:36 Respiratory Panel (PCR) - Final Mucosa - Nasopharyngeal 08/26/20 22:10 Legionella Antigen - Final Urine, Clean Catch 08/26/20 13:45 Streptococcus pneumoniae Antigen (M - Final Urine, Clean Catch 08/26/20 13:30 SARS-CoV-2 Antigen (Rapid) - Final Mucosa - Nose Laboratory Tests Past 24 Hrs 08/26/20 08/26/20 08/26/20 13:30 13:30 13:30 WBC 6.5 RBC 4.29 L Hgb 13.7 Hct 40.9 MCV 95.3 H MCH 31.9 MCHC 33.5 RDW Std Deviation 46.1 H RDW Coeff of Kina 13.1 Plt Count 186 MPV 10.6 Immature Gran % (Auto) 0.600 Neut % (Auto) 85.1 H Lymph % (Auto) 9.2 L [place] % (Auto) 4.9 Eos % (Auto) 0.0 Baso % (Auto) 0.2 Absolute Neuts (auto) 5.6 Absolute Lymphs (auto) 0.60 L Nucleated RBC % 0 Differential Comment COMMENT D-Dimer Quant (PE/DVT) Specimen Type Sample Site pH Bicarbonate Actual Total CO2 Base Excess O2 Saturation ABG pCO2 ABG pO2 Jose Luis Test O2 Delivery Device Liter Flow Sodium 129 L Potassium 4.3 Chloride 94 L Carbon Dioxide 27.0 Anion Gap 8 BUN 16 Creatinine 1.28 Estim Creat Clear Calc 62.14 Est GFR (MDRD) Af Amer 74 Est GFR (MDRD) Non-Af 61 BUN/Creatinine Ratio 12.5 Glucose 234 H Hemoglobin A1c Lactic Acid 1.4 Calcium 8.5 Magnesium Ferritin Total Bilirubin 0.40 AST 82 H ALT 66 H Alkaline Phosphatase 128 H Lactate Dehydrogenase Troponin I 0.030 C-React Prot Ext Range 314.00 H Total Protein 7.1 Albumin 2.3 L Globulin 4.8 H Albumin/Globulin Ratio 0.5 L Procalcitonin COVID-19 ([facility]AMILET) 08/26/20 08/26/20 08/26/20 13:30 13:30 13:30 WBC RBC Hgb Hct MCV MCH MCHC RDW Std Deviation RDW Coeff of Kina Plt Count MPV Immature Gran % (Auto) Neut % (Auto) Lymph % (Auto) [place] % (Auto) Eos % (Auto) Baso % (Auto) Absolute Neuts (auto) Absolute Lymphs (auto) Nucleated RBC % Differential Comment D-Dimer Quant (PE/DVT) 4.62 H* Specimen Type Sample Site pH Bicarbonate Actual Total CO2 Base Excess O2 Saturation ABG pCO2 ABG pO2 Jose Luis Test O2 Delivery Device Liter Flow Sodium Potassium Chloride Carbon Dioxide Anion Gap BUN Creatinine Estim Creat Clear Calc Est GFR (MDRD) Af Amer Est GFR (MDRD) Non-Af BUN/Creatinine Ratio Glucose Hemoglobin A1c Lactic Acid Calcium Magnesium 2.0 Ferritin 765 H Total Bilirubin AST ALT Alkaline Phosphatase Lactate Dehydrogenase 423 H Troponin I C-React Prot Ext Range Total Protein Albumin Globulin Albumin/Globulin Ratio Procalcitonin 1.05 H COVID-19 (YAMILET) 08/26/20 08/26/20 08/27/20 16:15 20:58 05:12 WBC 5.9 RBC 4.04 L Hgb 12.5 L Hct 38.4 L MCV 95.0 H MCH 30.9 MCHC 32.6 RDW Std Deviation 46.5 H RDW Coeff of Kina 13.2 Plt Count 177 MPV 10.8 Immature Gran % (Auto) 0.700 Neut % (Auto) 88.0 H Lymph % (Auto) 6.4 L [place] % (Auto) 4.7 Eos % (Auto) 0.0 Baso % (Auto) 0.2 Absolute Neuts (auto) 5.2 Absolute Lymphs (auto) 0.38 L Nucleated RBC % 0 Differential Comment D-Dimer Quant (PE/DVT) Specimen Type ART Sample Site L Radial pH 7.46 H Bicarbonate Actual 27.5 H Total CO2 29 Base Excess 4 H O2 Saturation 92 L ABG pCO2 39.0 ABG pO2 59 L Jose Luis Test Positive O2 Delivery Device Cannula Liter Flow 2.0 Sodium Potassium Chloride Carbon Dioxide Anion Gap BUN Creatinine Estim Creat Clear Calc Est GFR (MDRD) Af Amer Est GFR (MDRD) Non-Af BUN/Creatinine Ratio Glucose Hemoglobin A1c Lactic Acid Calcium Magnesium Ferritin Total Bilirubin AST ALT Alkaline Phosphatase Lactate Dehydrogenase Troponin I C-React Prot Ext Range Total Protein Albumin Globulin Albumin/Globulin Ratio Procalcitonin COVID-19 (YAMILET) Negative 08/27/20 08/27/20 05:12 05:12 WBC RBC Hgb Hct MCV MCH MCHC RDW Std Deviation RDW Coeff of Kina Plt Count MPV Immature Gran % (Auto) Neut % (Auto) Lymph % (Auto) [place] % (Auto) Eos % (Auto) Baso % (Auto) Absolute Neuts (auto) Absolute Lymphs (auto) Nucleated RBC % Differential Comment D-Dimer Quant (PE/DVT) Specimen Type Sample Site pH Bicarbonate Actual Total CO2 Base Excess O2 Saturation ABG pCO2 ABG pO2 Jose Luis Test O2 Delivery Device Liter Flow Sodium 127 L Potassium 4.6 Chloride 92 L Carbon Dioxide 25.0 Anion Gap 10 BUN 16 Creatinine 1.23 Estim Creat Clear Calc 64.66 Est GFR (MDRD) Af Amer 77 Est GFR (MDRD) Non-Af 64 BUN/Creatinine Ratio 13.0 Glucose 302 H Hemoglobin A1c 9.8 H Lactic Acid Calcium 7.7 L Magnesium Ferritin Total Bilirubin 0.50 AST 106 H ALT 77 H Alkaline Phosphatase 117 Lactate Dehydrogenase Troponin I C-React Prot Ext Range Total Protein 5.8 L Albumin 2.2 L Globulin 3.6 Albumin/Globulin Ratio 0.6 L Procalcitonin COVID-19 (YAMILET) - Other Studies Radiology: [] reviewed Other Studies: [] Route of nutrition/ use of supplements: [] Nutritional Intake: [] IV Site: [] Villagran Catheter: [] - Physical Exam General: Alert, Oriented x3, Cooperative HEENT: Atraumatic, PERRLA, EOMI Neck: Supple, No Nodes Lungs: No rhonchi, Diminished Cardiovascular: Regular rate, Regular Rhythm Abdomen: Soft, Non Tender, Non-Distended Extremities: No edema Skin: No rashes IV Site: Peripheral, without redness Musculoskeletal: No Tenderness to Palpation of Joints or Extremities Neurological: Cranial nerves II-XII grossly intact - Assessment/Plan Antibiotics: [] Assessment/Plan: [] Active and Suspected Problems (Last Updated 12/27/18 @ 07:[address] Ruben Sandoval, DO) Bilateral pneumonia (Acute) Suspected COVID-19 virus infection (Acute) suspect covid based on symptoms, PEs, and lymphopenia. PCR neg, will check Abs. uAg neg. Will stop azithro, cont ceftriaxone for now, on dex and hep gtt. Will start remdesivir, is in quarantine. Thank you, will follow
--- NOTE | 2020-08-27 11:58 | CASEMGMT ---
RN CM Assessment Note Introduced role of CM to patient's . Unable to speak with patient as he is intermittent on bipap. Demographics, PCP verified. states patient is generally independent at home, no needs. He uses a cane to ambulate, and sometimes walker. Pt is able to complete own ADL's, however does assist with socks and shoes. does most other home chores. COVID 19 TESTIN08/26/20 @ [facility] Presentation: shortness of breath, cough, aches, fever. Diagnosis: COVID 19 PCP: Dr. Otero Specialists: none Insurance: [place] Preferred Pharmacy: [facility] Benefit: yes LNOK: Lenard Faulkner, Living Arrangements: Lives in two story home with . Bathroom, bedroom are on upper floor. states patient generally sleeps on the couch. He is able to navigate steps but some difficulty due to obesity. Tranportation: drives DME: cane, walker, does not wear cpap. If home oxygen is needed, no preference on provider. List reviewed with patient's . [facility] D[facility] for [place]: [facility], [facility], [facility], [facility]. No preference- will use [facility] HHC: none SNF: none Patient DC Goals: Home DC Plan: anticipate home on dc. PT/OT evaluations pending. Recommend oxygen testing prior to dc. CM available for discharge planning coordination. Contact CM for any concerns/needs that may arise. Elsy SWEET RN ACM
[2020-08-27 12:16] LABS: Bedside Glucose 319 mg/dL (70-110)
--- NOTE | 2020-08-27 13:35 | CHAPLAIN ---
Type of Pastoral Visit _x__ Initial Visit ___ Follow-up Visit ___ On-call Visit ___ General Patient Visit ___ Spiritual Assessment ___ Family Conference ___ Bereavement ___ Rapid Response ___ Code Blue _x__ Other (describe below) Pastoral Care Referral From _x_ Patient ___ Family ___ Nurse ___ Physician ___ Retail Stock Clerk ___ Street Light Cleaner ___ Other (describe below) Sacrament/Intervention _x__ Active listening ___ Anointing ___ Mosque ___ Bereavement ___ Communion ___ Irish exploration ___ ___ Life review _x__ Prayer ___ Reconciliation ___ Sacrament of Sick _x__ Supportive presence ___ Wedding ___ Other (describe below) Pastoral Comments phone call made into isolation room to offer support; pt welcomes spiritual care support; prayer welcomed
--- NOTE | 2020-08-27 14:10 | CON.PCM_ITS ---
Reason for Consult Date of Consultation: 08/27/20 Reason for Consultation: Acute hypoxemic respiratory failure History of Present Illness: The patient is a 59-year-old male, with a history as outlined below, who presented to the emergency department on August 26 with a number of different complaints including shortness of breath, cough, fatigue and malaise. The patient denies any known Covid exposures. He does not utilize supplemental oxygen at his baseline. He does report a known history of obstructive sleep apnea, but reports noncompliance with the use of nocturnal Pap therapy. On presentation to the emergency department, the patient was noted to be afebrile and hemodynamically stable. Laboratory evaluation revealed a normal white blood cell count. Chemistry profile was notable for a sodium of 127, chloride of 92 and creatinine of 1.23. Rapid coronavirus antigen testing was negative. Follow-up coronavirus PCR testing was also negative. A CTA chest was obtained which revealed bilateral pulmonary emboli along with multilobar airspace consolidation. The patient received antimicrobials and Decadron. He was subsequently started on systemic anticoagulation and admitted to the Covid cohort unit for further management. Past Medical History Past Medical History (Chronic Problems): Chronic Problems (Last Updated 12/27/18 @ 07:[address] Ruben Sandoval DO) Obstructive sleep apnea (Chronic) Hyperlipidemia (Chronic) Hypothyroidism (Chronic) Psoas tendinitis (Chronic) Morbid obesity (Chronic) Headache (Chronic) Osteoarthritis (Chronic) Morbid obesity (Chronic) Diabetes mellitus, type II (Chronic) History of left psoas muscle injury (Chronic) Chronic back pain (Chronic) Muscle spasm (Chronic) Hypertension (Chronic) Muscle tear (Chronic) Medical History: Medical History (Last Updated 12/27/18 @ 07:[address] Ruben Sandoval DO) Hyperlipidemia E78.5 Hypothyroid E03.9 RO (obstructive sleep apnea) G47.33 HTN (hypertension) I10 Allergies No Known Allergies Allergy (Verified 08/26/20 12:33) Home Medications: Ambulatory Orders Medication Instructions Recorded Lisinopril [Zestril] 20 mg PO DAILY #30 tab 05/05/19 metFORMIN HCl [Glucophage] 500 mg PO BIDCM #60 tab 05/05/19 Levothyroxine [Synthroid] 100 mcg PO DAILY@0600 06/03/20 Surgical History: - - Thumb cyst removal, Plantar fasciitis surgery, lumbar back surgery, left knee arthroscopic surgery. Psychiatric History: No pertinent psych hx Lives: Spouse/ Significant Other Smoking Status: Never smoker Alcohol: None Drugs: None - *Family History Maternal Family History: Family History (Last Updated 12/27/18 @ 07:[address] Ruben Sandoval DO) Other CAD (coronary artery disease) History Items: Diabetes, Heart Disease, Hypertension Paternal Family History: Family History (Last Updated 12/27/18 @ 07:[address] Ruben Sandoval DO) Other CAD (coronary artery disease) History Items: Heart Disease Review of Systems Constitutional: Reports: Chills, Fever, Malaise, Fatigue Eyes: Denies: Blurred vision, Double vision HEENT: Denies: Head Aches, Sinus Congestion, Sinus Drainage Cardiovascular: Denies: Chest Pain, Palpitations Respiratory: Reports: Cough, Shortness of Breath Gastrointestinal: Denies: Abdominal Pain, Nausea, Vomiting Genitourinary: Denies: Dysuria Musculoskeletal: Denies: Joint Pain, Joint Tenderness Skin: Denies: Rash, Wounds Neurological: Denies: Numbness, Tingling, Focal weakness Psychiatric: Denies: Anxiety, Depression, Homicidal Ideations, Suicidal Ideations Hematologic/ Lymphatic: Reports: Anemia Patient Problems: Active and Suspected Problems (Last Updated 12/27/18 @ 07:[address] Ruben Cote i, DO) Bilateral pneumonia (Acute) Suspected COVID-19 virus infection (Acute) Objective: The patient's most recent lab work, culture data and imaging studies have all been personally reviewed. - Physical Exam Vitals/I&O's: Vital Signs Temp Pulse Resp BP Pulse Ox 98.9 F 85 18 151/73 H 92 08/27/20 12:04 08/27/20 12:04 08/27/20 12:04 08/27/20 12:04 08/27/20 12:04 Oxygen Flow Rate (L/min) 2 Oxygen Delivery Method Nasal Cannula Weight: 376 lb 15.847 oz Body Mass Index (BMI) 55.4 Intake and Output for Last 24 Hours 08/25/20 08/26/20 08/27/20 23:59 23:59 23:59 Intake Total 805 / 1105 3201.67 / 3201.67 Output Total 1650 / 1650 Balance 805 / 605 1551.67 / 1551.67 General: Alert, Cooperative, - - Morbidly obese HEENT: Atraumatic, PERRLA, Normocephalic Oral: No Gingival or Mucosal Lesions/ Ulcerations Neck: Supple, No Nodes, Trachea Midline Lungs: Diminished, Tachypneic Cardiovascular: Regular rate, Regular Rhythm Abdomen: Bowel Sounds Present, Soft, Non Tender, Obese Extremities: No clubbing, No cyanosis Skin: No breakdown Musculoskeletal: No Tenderness to Palpation of Joints or Extremities Lymphatic: No Cervical, Supraclavicular, or Inguinal Adenopathy Neurological: Cranial nerves II-XII grossly intact, Neuro grossly intact Psych/Mental Status: Alert and oriented to time, place, person, mood and affect Labs (Last 48 Hours) 08/26/20 08/26/20 08/26/20 13:30 13:30 13:30 WBC 6.5 RBC 4.29 L Hgb 13.7 Hct 40.9 MCV 95.3 H MCH 31.9 MCHC 33.5 RDW Std Deviation 46.1 H RDW Coeff of Kina 13.1 Plt Count 186 MPV 10.6 Immature Gran % (Auto) 0.600 Neut % (Auto) 85.1 H Lymph % (Auto) 9.2 L [place] % (Auto) 4.9 Eos % (Auto) 0.0 Baso % (Auto) 0.2 Absolute Neuts (auto) 5.6 Absolute Lymphs (auto) 0.60 L Nucleated RBC % 0 Differential Comment COMMENT D-Dimer Quant (PE/DVT) Specimen Type Sample Site pH Bicarbonate Actual Total CO2 Base Excess O2 Saturation ABG pCO2 ABG pO2 Jose Luis Test O2 Delivery Device Liter Flow Sodium 129 L Potassium 4.3 Chloride 94 L Carbon Dioxide 27.0 Anion Gap 8 BUN 16 Creatinine 1.28 Estim Creat Clear Calc 62.14 Est GFR (MDRD) Af Amer 74 Est GFR (MDRD) Non-Af 61 BUN/Creatinine Ratio 12.5 Glucose 234 H Hemoglobin A1c Lactic Acid 1.4 Calcium 8.5 Magnesium Ferritin Total Bilirubin 0.40 AST 82 H ALT 66 H Alkaline Phosphatase 128 H Lactate Dehydrogenase Troponin I 0.030 C-React Prot Ext Range 314.00 H Total Protein 7.1 Albumin 2.3 L Globulin 4.8 H Albumin/Globulin Ratio 0.5 L Procalcitonin COVID-19 ([facility]) POC Glucose 08/26/20 08/26/20 08/26/20 13:30 13:30 13:30 WBC RBC Hgb Hct MCV MCH MCHC RDW Std Deviation RDW Coeff of Kina Plt Count MPV Immature Gran % (Auto) Neut % (Auto) Lymph % (Auto) [place] % (Auto) Eos % (Auto) Baso % (Auto) Absolute Neuts (auto) Absolute Lymphs (auto) Nucleated RBC % Differential Comment D-Dimer Quant (PE/DVT) 4.62 H* Specimen Type Sample Site pH Bicarbonate Actual Total CO2 Base Excess O2 Saturation ABG pCO2 ABG pO2 Jose Luis Test O2 Delivery Device Liter Flow Sodium Potassium Chloride Carbon Dioxide Anion Gap BUN Creatinine Estim Creat Clear Calc Est GFR (MDRD) Af Amer Est GFR (MDRD) Non-Af BUN/Creatinine Ratio Glucose Hemoglobin A1c Lactic Acid Calcium Magnesium 2.0 Ferritin 765 H Total Bilirubin AST ALT Alkaline Phosphatase Lactate Dehydrogenase 423 H Troponin I C-React Prot Ext Range Total Protein Albumin Globulin Albumin/Globulin Ratio Procalcitonin 1.05 H COVID-19 ([facility]) POC Glucose 08/26/20 08/26/20 08/26/20 16:15 20:47 20:58 WBC RBC Hgb Hct MCV MCH MCHC RDW Std Deviation RDW Coeff of Kina Plt Count MPV Immature Gran % (Auto) Neut % (Auto) Lymph % (Auto) [place] % (Auto) Eos % (Auto) Baso % (Auto) Absolute Neuts (auto) Absolute Lymphs (auto) Nucleated RBC % Differential Comment D-Dimer Quant (PE/DVT) Specimen Type ART Sample Site L Radial pH 7.46 H Bicarbonate Actual 27.5 H Total CO2 29 Base Excess 4 H O2 Saturation 92 L ABG pCO2 39.0 ABG pO2 59 L Jose Luis Test Positive O2 Delivery Device Cannula Liter Flow 2.0 Sodium Potassium Chloride Carbon Dioxide Anion Gap BUN Creatinine Estim Creat Clear Calc Est GFR (MDRD) Af Amer Est GFR (MDRD) Non-Af BUN/Creatinine Ratio Glucose Hemoglobin A1c Lactic Acid Calcium Magnesium Ferritin Total Bilirubin AST ALT Alkaline Phosphatase Lactate Dehydrogenase Troponin I C-React Prot Ext Range Total Protein Albumin Globulin Albumin/Globulin Ratio Procalcitonin COVID-19 ([facility]) Negative POC Glucose 221 H 08/27/20 08/27/20 08/27/20 05:12 05:12 05:12 WBC 5.9 RBC 4.04 L Hgb 12.5 L Hct 38.4 L MCV 95.0 H MCH 30.9 MCHC 32.6 RDW Std Deviation 46.5 H RDW Coeff of Kina 13.2 Plt Count 177 MPV 10.8 Immature Gran % (Auto) 0.700 Neut % (Auto) 88.0 H Lymph % (Auto) 6.4 L [place] % (Auto) 4.7 Eos % (Auto) 0.0 Baso % (Auto) 0.2 Absolute Neuts (auto) 5.2 Absolute Lymphs (auto) 0.38 L Nucleated RBC % 0 Differential Comment D-Dimer Quant (PE/DVT) Specimen Type Sample Site pH Bicarbonate Actual Total CO2 Base Excess O2 Saturation ABG pCO2 ABG pO2 Jose Luis Test O2 Delivery Device Liter Flow Sodium 127 L Potassium 4.6 Chloride 92 L Carbon Dioxide 25.0 Anion Gap 10 BUN 16 Creatinine 1.23 Estim Creat Clear Calc 64.66 Est GFR (MDRD) Af Amer 77 Est GFR (MDRD) Non-Af 64 BUN/Creatinine Ratio 13.0 Glucose 302 H Hemoglobin A1c 9.8 H Lactic Acid Calcium 7.7 L Magnesium Ferritin Total Bilirubin 0.50 AST 106 H ALT 77 H Alkaline Phosphatase 117 Lactate Dehydrogenase Troponin I C-React Prot Ext Range Total Protein 5.8 L Albumin 2.2 L Globulin 3.6 Albumin/Globulin Ratio 0.6 L Procalcitonin COVID-19 ([facility]) POC Glucose 08/27/20 08/27/20 08/27/20 06:26 08:07 12:02 WBC RBC Hgb Hct MCV MCH MCHC RDW Std Deviation RDW Coeff of Kina Plt Count MPV Immature Gran % (Auto) Neut % (Auto) Lymph % (Auto) [place] % (Auto) Eos % (Auto) Baso % (Auto) Absolute Neuts (auto) Absolute Lymphs (auto) Nucleated RBC % Differential Comment D-Dimer Quant (PE/DVT) Specimen Type Sample Site pH Bicarbonate Actual Total CO2 Base Excess O2 Saturation ABG pCO2 ABG pO2 Jose Luis Test O2 Delivery Device Liter Flow Sodium Potassium Chloride Carbon Dioxide Anion Gap BUN Creatinine Estim Creat Clear Calc Est GFR (MDRD) Af Amer Est GFR (MDRD) Non-Af BUN/Creatinine Ratio Glucose Hemoglobin A1c Lactic Acid Calcium Magnesium Ferritin Total Bilirubin AST ALT Alkaline Phosphatase Lactate Dehydrogenase Troponin I C-React Prot Ext Range Total Protein Albumin Globulin Albumin/Globulin Ratio Procalcitonin COVID-19 ([facility]) POC Glucose 306 H 281 H 319 H Microbiology 08/26/20 21:00 Interface Orders Gram Stain - Final 08/26/20 21:00 Interface Orders Respiratory Culture - Preliminary Appears to be normal respiratory srinivas. Further studies to follow. 08/26/20 20:36 Mucosa - Nasopharyngeal Respiratory Panel (PCR) - Final 08/26/20 22:10 Urine, Clean Catch Legionella Antigen - Final 08/26/20 13:45 Urine, Clean Catch Streptococcus pneumoniae Antigen (M - Final 08/26/20 13:30 Mucosa - Nose SARS-CoV-2 Antigen (Rapid) - Final Clinical Impression(s) from Imaging Studies Chest X-Ray 08/26/20 13:12 IMPRESSION: Dense infiltrate in the left midlung. Mild increased markings in the right upper lobe. Radiographic follow-up is recommended until clearing. Electronically Signed: Boston Clay, at 13:58 EST , Service support , Chest CTA 08/26/20 13:27 IMPRESSION: Multiple bilateral small pulmonary emboli as described. Dense infiltration in the left upper lobe as well as in the left lower lobe and focal infiltrate in the right upper lobe. Radiographic follow-up is recommended. Electronically Signed: Boston Clay, at 15:32 EST , Service support , Current Medications Acetaminophen (Acetaminophen 325 Mg Tablet) 650 mg PO Q6H PRN PRN PRN Reason: Pain Score 1-10/Temp > 100.7 F Last Admin: 08/27/20 04:13 Dose: 650 mg Documented by: Al Hydroxide/Mg Hydroxide (Mag Hydrox/Al Hydrox/Simeth 30 Ml Udc) 30 ml PO Q6H PRN PRN PRN Reason: Gastric Burning Albuterol Sulfate (Albuterol 2.5 Mg/3 Ml Vial.Neb.) 2.5 mg INHALATION Q2H PRN PRN PRN Reason: Dyspnea, wheezing Dexamethasone (Dexamethasone 4 Mg Tablet) 6 mg PO DAILY [facility]ARI Stop: 09/04/20 10:01 Dextrose (Dextrose 50%-Water 25 Gm/50 Ml Disp.Syrin) 0 gm IV X1 PRN; Protocol PRN Reason: Hypoglycemia Glucagon (Glucagon 1 Mg/Ml Syringe) 1 mg IM .X1 PRN PRN Reason: Hypoglycemia Guaifenesin (Guaifenesin 10 Ml Udc (200mg/10ml)) 20 ml PO Q4H PRN PRN PRN Reason: COUGH Hydralazine HCl (Hydralazine 20 Mg/Ml Vial) 10 mg IV Q4H PRN PRN PRN Reason: SBP > 160 Sodium Chloride () 1,000 mls @ 100 mls/hr IV .Q10H ZARI Last Infusion: 08/27/20 13:50 Dose: 0 mls/hr Documented by: Ceftriaxone Sodium 2 gm/ (Sodium Chloride) 50 mls @ 100 mls/hr IV Q24 ZARI Last Infusion: 08/27/20 10:10 Dose: Infused Documented by: Heparin Sodium/Dextrose () 25,000 units in 250 mls @ 0 mls/hr IV .Q0M [facility]; Protocol Remdesivir 100 mg/ Sodium (Chloride) 250 mls @ 125 mls/hr IV DAILY ZARI; Protocol Stop: 08/31/20 11:59 Insulin Glargine (Insulin Glargine 100 Units/Ml Pen) 10 units SC BID [facility] Last Admin: 08/27/20 08:27 Dose: 10 units Documented by: Insulin Human Lispro (Insulin Lispro 100 Unit/Ml Insuln.Pen) 0 unit SC ACHS [facility]; Protocol Last Admin: 08/27/20 12:03 Dose: 6 units Documented by: Levothyroxine Sodium (Levothyroxine 100 Mcg Tablet) 100 mcg PO DAILY ZARI Last Admin: 08/27/20 08:24 Dose: 100 mcg Documented by: Lisinopril (Lisinopril 20 Mg Tablet) 20 mg PO DAILY [facility] Last Admin: 08/27/20 08:27 Dose: 20 mg Documented by: Magnesium Hydroxide (Magnesium Hydroxide 30 Ml Udc) 30 ml PO DAILY PRN PRN PRN Reason: Constipation Melatonin (Melatonin 3 Mg Tablet) 3 mg PO QHS PRN PRN PRN Reason: INSOMNIA Last Admin: 08/26/20 20:29 Dose: 3 mg Documented by: Nitroglycerin (Nitroglycerin (Inpatient Use) 0.4 Mg Tab.Subl) 0.4 mg SUBLINGUAL Q5M PRN PRN Reason: CARDIAC/CHEST PAIN Ondansetron HCl (Ondansetron 4 Mg/2 Ml Vial) 4 mg IV Q8H PRN PRN PRN Reason: NAUSEA/VOMITING Prochlorperazine Edisylate (Prochlorperazine 10 Mg/2 Ml Vial) 5 mg IV Q4H PRN PRN PRN Reason: Breakthrough Nausea/Vomiting Psyllium Hydrophilic Mucilloid (Psyllium 1 Packet) 1 packet PO DAILY PRN PRN PRN Reason: Constipation Senna/Docusate Sodium (Senna/Docusate Sodium 1 Tablet) 2 tablet PO BID PRN PRN PRN Reason: Constipation Sodium Chloride (0.9% Saline Lock 10 Ml Syringe) 10 - 40 ml IV UD PRN PRN Reason: SALINE FLUSH Throat Lozenges (Benzocaine/Menthol 1 Lozenge) 1 lozenge MUCOUS MEM Q2H PRN PRN PRN Reason: SORE THROAT Assessment/Plan All Active Problems (Last Updated 12/27/18 @ 07:[address] Ruben Sandoval, DO) Right shoulder pain (Acute) Abscess in epidural space of lumbar spine (Acute) Lumbar discitis (Acute) Psoas abscess (Acute) Bilateral pneumonia (Acute) Suspected COVID-19 virus infection (Acute) MSSA bacteremia (Acute) RECOMMENDATIONS: 1. Continue antimicrobials, remdesivir and Decadron per ID recommendations. 2. Wean supplemental oxygen to maintain saturations at or above 90%. 3. Continue systemic anticoagulation. 4. Encourage incentive spirometer use and mobilize patient as tolerated. 5. Strongly recommend the use of BiPAP therapy, at a minimum, when sleeping. IMPRESSIONS: 1. Acute hypoxemic respiratory failure Most likely multifactorial in etiology with bilateral pulmonary emboli, questionable Covid pneumonia and community-acquired pneumonia contributing. For now, the patient will be continued on antimicrobials per ID recommendations. We will plan to continue Decadron, but will defer need for remdesivir to ID. Plan to continue supplemental oxygen with a goal to maintain saturations at or above 90%. Encourage incentive spirometer use and mobilize patient as tolerated. 2. History of obstructive sleep apnea Strongly recommend use of BiPAP therapy at a minimum with naps and nightly. 3. Morbid obesity/diabetes mellitus/hypertension/hyperlipidemia/hypothyroidism Complicates care, management, recovery and prognosis. Continue home medications as indicated. This note was generated with [employer] dictation software. It may contain incorrect words, spelling, and punctuation that were not noted in checking the note before signing. Inpatient E&M: 78887 Init Hosp L3
[2020-08-27 17:41] LABS: Bedside Glucose 379 mg/dL (70-110)
[2020-08-27 19:34] LABS: International Normalized Ratio 1.4; Prothrombin Time (Protime)PT. 16.5 SECONDS (11.7-14.9)
[2020-08-27 19:35] LABS: Partial Thromboplast Time 42.7 Seconds (24.1-36.2)
[2020-08-27] MEDS: Heparin Injection (Vial) 5,000 UNIT/ML VIAL IV (20:40)
[2020-08-27] MEDS: HEPARIN/D5w 25,000 UNITS 25,000 UNITS/250 ML IV.SOLN. 10 UNITS IV (20:41)
[2020-08-27 23:05] LABS: Bedside Glucose 327 mg/dL (70-110)
[2020-08-28] VITALS (10 sets, daily range): BP systolic 150–166; BP diastolic 77–89; PULSE 62–78; RESP 12–18; TEMP 36.1–37; O2SAT 93–100
[2020-08-28 02:32] LABS: Hematocrit 40.7 % (40-54); Hemoglobin 12.9 g/dL (13.0-16.5); Mean Corp Hgb Conc 31.7 g/dL (32-36); Mean Corpuscular Volume 97.8 fL (80-94); Mean Platelet Vol. 11.1 fl (6.2-12.0); Platelet Count 178 K/mm3 (150-450); RBC Distribution Width CV 13.1 % (11.6-14.6); RBC Distribution Width SD 47.7 fl (35.1-43.9); Red Blood Count 4.16 M/mm3 (4.6-6.2); White Blood Count 5.3 K/mm3 (4.4-11.0)
[2020-08-28] MEDS: 0.9% Normal Saline 1,000 ML 100 ML IV ×3 (03:42→18:58)
[2020-08-28 03:56] LABS: AST(SGOT) 106 U/L (15-37); Alanine Aminotransfer ALT/SGPT 98 U/L (16-61); Albumin, Serum 2.2 g/dL (3.2-5.0); Alkaline Phosphatase 117 U/L (45-117); Anion Gap 7 (5-15); BUN 19 mg/dL (7-18); BUN/Creat Ratio 18.3 RATIO (10-20); Bilirubin, Direct 0.14 mg/dL (0.00-0.30); Calcium,Total 8.2 mg/dL (8.5-10.1); Chloride 97 mmol/L (98-107); Creatinine, Serum 1.04 mg/dL (0.70-1.30); EST Glomerular Filtration Rate 77 mL/min (>60); Est Glom Filt Rate - Afr Amer 94 mL/min (>60); Estimated Creatinine Clearance 76.48 ml/min; Globulin 3.8 g/dL (2.2-4.2); Glucose 336 mg/dL (74-106); Magnesium 2.5 mg/dL (1.6-2.6); Potassium 4.6 mmol/L (3.5-5.1); Sodium Level 132 mmol/L (136-145)
[2020-08-28 07:15] LABS: SARS-COV-2 TOTAL ABS Nonreactive (Nonreactive)
--- NOTE | 2020-08-28 07:37 | PCM.PN.HOSP ---
Patient Problems: Active and Suspected Problems (Last Updated 12/27/18 @ 07:[address] Ruben Sandoval, DO) Bilateral pneumonia (Acute) Suspected COVID-19 virus infection (Acute) Reason for Visit: Acute hypoxic respiratory failure Subjective: Patient is a 59-year-old gentleman admitted with progressive generalized weakness fever chills and headache and loose bowel movement. Was a high suspicion for possible Covid 1910. His COVID-19 rapid antigen test was however negative. Patient was however placed under isolation whilst the PCR test was pursued. PCR came back negative patient however was placed on the isolation precautions given the high suspicion after discussion with ID -08/28/2020; patient seen his overall clinical condition improving. Patient is more awake and coherent and interactive Objective: GENERAL: cooperative but dyspneic at rest HEENT: Atraumatic; EYES; Anicteric, Normal Conjunctiva NECK; supple, normal thyroid, RESPIRATORY: Diminished to auscultation CARDIOVASCULAR: Regular S1 S2, GI: soft, normoactive bowel sounds, : No Renal angle tenderness; EXTREMITIES: No edema, no clubbing, MUSCULOSKELETAL: no muscle waisting NEURO: Awake; no lateralizing signs. SKIN: No Rash PSYCH; Flat affect Vitals/I&O's: Vital Signs Temp Pulse Resp BP Pulse Ox 98.5 F 64 18 150/77 H 100 08/28/20 03:45 08/28/20 04:28 08/28/20 04:15 08/28/20 03:45 08/28/20 04:15 Oxygen Flow Rate (L/min) 10 Oxygen Delivery Method CPAP Weight: 173.6 kg Body Mass Index (BMI) 55.4 Intake and Output for Last 24 Hours 08/26/20 08/27/20 08/28/20 23:59 23:59 23:59 Intake Total 805 / 1105 3971.67 / 4211.67 1303.17 / 1303.17 Output Total 2550 / 3050 1000 / 1000 Balance 805 / 605 1421.67 / 1161.67 303.17 / 303.17 Microbiology Past 72 Hours 08/26/20 21:00 Interface Orders Gram Stain - Final 08/26/20 21:00 Interface Orders Respiratory Culture - Preliminary Appears to be normal respiratory srinivas. Further studies to follow. 08/26/20 20:36 Mucosa - Nasopharyngeal Respiratory Panel (PCR) - Final 08/26/20 22:10 Urine, Clean Catch Legionella Antigen - Final 08/26/20 13:45 Urine, Clean Catch Streptococcus pneumoniae Antigen (M - Final 08/26/20 13:30 Mucosa - Nose SARS-CoV-2 Antigen (Rapid) - Final Laboratory Results 08/27/20 05:12: Hemoglobin A1c 9.8 H 08/27/20 08:07: POC Glucose 281 H 08/27/20 12:02: POC Glucose 319 H 08/27/20 16:52: POC Glucose 379 H 08/27/20 19:15: PT 16.5 H, INR 1.4, APTT 42.7 H 08/27/20 20:36: POC Glucose 327 H 08/28/20 02:18: WBC 5.3, RBC 4.16 L, Hgb 12.9 L, Hct 40.7, MCV 97.8 H, MCH 31.0, MCHC 31.7 L, RDW Std Deviation 47.7 H, RDW Coeff of Kina 13.1, Plt Count 178, MPV 11.1 08/28/20 02:18: Sodium 132 L, Potassium 4.6, Chloride 97 L, Carbon Dioxide 28.0, Anion Gap 7, BUN 19 H, Creatinine 1.04, Estim Creat Clear Calc 76.48, Est GFR (MDRD) Af Amer 94, Est GFR (MDRD) Non-Af 77, BUN/Creatinine Ratio 18.3, Glucose 336 H, Calcium 8.2 L, Magnesium 2.5, Total Bilirubin 0.30, Direct Bilirubin 0.14, AST 106 H, ALT 98 H, Alkaline Phosphatase 117, Total Protein 6.0 L, Albumin 2.2 L, Globulin 3.8 08/28/20 02:18: SARS Serology Nonreactive 08/28/20 02:18: APTT 46.0 H Current Medications Acetaminophen (Acetaminophen 325 Mg Tablet) 650 mg PO Q6H PRN PRN PRN Reason: Pain Score 1-10/Temp > 100.7 F Last Admin: 08/27/20 04:13 Dose: 650 mg Documented by: Al Hydroxide/Mg Hydroxide (Mag Hydrox/Al Hydrox/Simeth 30 Ml Udc) 30 ml PO Q6H PRN PRN PRN Reason: Gastric Burning Albuterol Sulfate (Albuterol 2.5 Mg/3 Ml Vial.Neb.) 2.5 mg INHALATION Q2H PRN PRN PRN Reason: Dyspnea, wheezing Dexamethasone (Dexamethasone 4 Mg Tablet) 6 mg PO DAILY ZARI Stop: 09/04/20 10:01 Dextrose (Dextrose 50%-Water 25 Gm/50 Ml Disp.Syrin) 0 gm IV X1 PRN; Protocol PRN Reason: Hypoglycemia Glucagon (Glucagon 1 Mg/Ml Syringe) 1 mg IM .X1 PRN PRN Reason: Hypoglycemia Guaifenesin (Guaifenesin 10 Ml Udc (200mg/10ml)) 20 ml PO Q4H PRN PRN PRN Reason: COUGH Heparin Sodium (Porcine) (Heparin Injection (Vial) 5,000 Unit/Ml Vial) 0 unit IV UD PRN; Protocol PRN Reason: dose adjustment Last Admin: 08/27/20 20:40 Dose: 4,000 unit Documented by: Hydralazine HCl (Hydralazine 20 Mg/Ml Vial) 10 mg IV Q4H PRN PRN PRN Reason: SBP > 160 Sodium Chloride () 1,000 mls @ 100 mls/hr IV .Q10H ZARI Last Admin: 08/28/20 03:42 Dose: 100 mls/hr Documented by: Ceftriaxone Sodium 2 gm/ (Sodium Chloride) 50 mls @ 100 mls/hr IV Q24 ZARI Last Infusion: 08/27/20 10:10 Dose: Infused Documented by: Heparin Sodium/Dextrose () 25,000 units in 250 mls @ 10 mls/hr IV .Q25H ZARI; Protocol Last Titration: 08/28/20 03:00 Dose: 1,100 units/hr, 11 mls/hr Documented by: Remdesivir 100 mg/ Sodium (Chloride) 250 mls @ 125 mls/hr IV DAILY ZARI; Protocol Stop: 08/31/20 11:59 Insulin Glargine (Insulin Glargine 100 Units/Ml Pen) 10 units SC BID ZARI Last Admin: 08/27/20 20:38 Dose: 10 units Documented by: Insulin Human Lispro (Insulin Lispro 100 Unit/Ml Insuln.Pen) 0 unit SC ACHS ZARI; Protocol Last Admin: 08/27/20 20:37 Dose: 8 units Documented by: Levothyroxine Sodium (Levothyroxine 100 Mcg Tablet) 100 mcg PO DAILY ZARI Last Admin: 08/27/20 08:24 Dose: 100 mcg Documented by: Lisinopril (Lisinopril 20 Mg Tablet) 20 mg PO DAILY ZARI Last Admin: 08/27/20 08:27 Dose: 20 mg Documented by: Magnesium Hydroxide (Magnesium Hydroxide 30 Ml Udc) 30 ml PO DAILY PRN PRN PRN Reason: Constipation Melatonin (Melatonin 3 Mg Tablet) 3 mg PO QHS PRN PRN PRN Reason: INSOMNIA Last Admin: 08/26/20 20:29 Dose: 3 mg Documented by: Nitroglycerin (Nitroglycerin (Inpatient Use) 0.4 Mg Tab.Subl) 0.4 mg SUBLINGUAL Q5M PRN PRN Reason: CARDIAC/CHEST PAIN Ondansetron HCl (Ondansetron 4 Mg/2 Ml Vial) 4 mg IV Q8H PRN PRN PRN Reason: NAUSEA/VOMITING Prochlorperazine Edisylate (Prochlorperazine 10 Mg/2 Ml Vial) 5 mg IV Q4H PRN PRN PRN Reason: Breakthrough Nausea/Vomiting Psyllium Hydrophilic Mucilloid (Psyllium 1 Packet) 1 packet PO DAILY PRN PRN PRN Reason: Constipation Senna/Docusate Sodium (Senna/Docusate Sodium 1 Tablet) 2 tablet PO BID PRN PRN PRN Reason: Constipation Sodium Chloride (0.9% Saline Lock 10 Ml Syringe) 10 - 40 ml IV UD PRN PRN Reason: SALINE FLUSH Throat Lozenges (Benzocaine/Menthol 1 Lozenge) 1 lozenge MUCOUS MEM Q2H PRN PRN PRN Reason: SORE THROAT STROKE Vital Signs/Narrative: Vital Signs Temp Pulse Resp BP Pulse Ox 08/28/20 04:28 64 08/28/20 04:15 62 18 100 08/28/20 03:45 98.5 F 65 15 150/77 H 100 Medical Necessity - Tobacco Use Smoking Status: Never smoker Assessment/Plan All Active Problems (Last Updated 12/27/18 @ 07:[address] Ruben Sandoval DO) Right shoulder pain (Acute) Abscess in epidural space of lumbar spine (Acute) Lumbar discitis (Acute) Psoas abscess (Acute) Bilateral pneumonia (Acute) Suspected COVID-19 virus infection (Acute) MSSA bacteremia (Acute) Patient is a 59-year-old gentleman admitted with progressive generalized weakness fever chills and headache and loose bowel movement. High suspicion for COVID-19. His COVID-19 rapid antigen test was however negative. Patient was however placed under isolation whilst the PCR test was pursued 1. Acute hypoxic respiratory failure bilateral pulmonary embolism with pulmonary infarction ?CTA of the chest demonstrated Multiple bilateral small pulmonary emboli as described. Dense infiltration in the left upper lobe as well as in the left lower lobe and focal infiltrate in the right upper lobe. Patient was started on systemic anticoagulation admitted to the COVID-19 cohort floor. COVID-19 PCR ordered) (came back negative). Consult was also placed to pulmonary medicine in addition to ID which have been consulted on admission patient has been started on Xarelto on admission discontinued started on heparin drip (there is some evidence heparin has some antiviral activity) - -08/28/2020; patient seen his overall clinical condition improving. Patient is more awake and coherent and interactive 2. Suspected COVID-19 pneumonia Patient resented with with progressive generalized weakness fever chills and headache and loose bowel movement. His COVID-19 rapid antigen test was however negative. Patient was however placed under isolation whilst the PCR test was pursued. PCR came back negative patient however was placed on the isolation precautions given the high suspicion after discussion with ID -08/28/2020: Patient was started on remdesivir as well as Decadron by infectious disease 3. Diabetes mellitus type II -patient's oral hypoglycemics held. -Placed on long acting insulin, Accu-Cheks a.c. and at bedtime and covered with sliding scale insulin -08/28/2020; patient blood glucose levels uncontrolled adjusted his insulin regimen 4. Hypertension - Blood pressure controlled, home medications continued with dose adjustment as needed 5. Hypothyroidism - Patient is on levothyroxine home dose continued 6. Morbid obesity - With a BMI of 55.7 patient was counseled on weight reduction Inpatient E&M: [id number] [facility] L3
--- NOTE | 2020-08-28 08:11 | PCS.PANDOC ---
PANDEMIC DOCUMENTATION INITIATED: Date: 07/22/2020 Time:
--- NOTE | 2020-08-28 08:31 | PCM.PN.PUL ---
Patient Problems: Active and Suspected Problems (Last Updated 12/27/18 @ 07:[address] Ruben Sandoval, DO) Bilateral pneumonia (Acute) Suspected COVID-19 virus infection (Acute) Subjective: The patient was seen and examined at the bedside this morning. Events from the last 24 hours have been reviewed. The patient is currently afebrile, hemodynamically stable and maintaining appropriate oxygen saturations on 2 L/min via nasal cannula. The patient tolerated BiPAP most of the night. Creatinine is stable. Objective: The patient's most recent lab work, culture data and imaging studies have all been personally reviewed. Coronavirus rapid antigen testing was negative. Follow-up coronavirus PCR was also negative. SARS serology was nonreactive. The remainder of the patient's infectious work-up was unremarkable. - Physical Exam Vitals/I&O's: Vital Signs Temp Pulse Resp BP Pulse Ox 98.5 F 64 18 150/77 H 95 08/28/20 03:45 08/28/20 04:28 08/28/20 04:15 08/28/20 03:45 08/28/20 07:17 Oxygen Flow Rate (L/min) 2 Oxygen Delivery Method Nasal Cannula Weight: 382 lb 11.559 oz Body Mass Index (BMI) 55.4 Intake and Output for Last 24 Hours 08/26/20 08/27/20 08/28/20 23:59 23:59 23:59 Intake Total 805 / 1105 3971.67 / 4211.67 1303.17 / 1303.17 Output Total 2550 / 3050 1000 / 1000 Balance 805 / 605 1421.67 / 1161.67 303.17 / 303.17 General: Alert, Cooperative, No apparent distress, - - Morbidly obese HEENT: Atraumatic, Normocephalic Oral: Moist Mucosa, No Gingival or Mucosal Lesions/ Ulcerations Neck: Supple, No Nodes, Trachea Midline Lungs: No rhonchi, No wheeze, No rales, Diminished Cardiovascular: Regular rate, Regular Rhythm Abdomen: Bowel Sounds Present, Soft, Non Tender, Obese Extremities: No clubbing, No cyanosis, No edema Skin: No breakdown Musculoskeletal: No Tenderness to Palpation of Joints or Extremities Lymphatic: No Cervical, Supraclavicular, or Inguinal Adenopathy Neurological: Cranial nerves II-XII grossly intact, Neuro grossly intact Psych/Mental Status: Normal Affect Labs (Last 48 Hours) 08/26/20 08/26/20 08/26/20 13:30 13:30 13:30 WBC 6.5 RBC 4.29 L Hgb 13.7 Hct 40.9 MCV 95.3 H MCH 31.9 MCHC 33.5 RDW Std Deviation 46.1 H RDW Coeff of Kina 13.1 Plt Count 186 MPV 10.6 Immature Gran % (Auto) 0.600 Neut % (Auto) 85.1 H Lymph % (Auto) 9.2 L Craven % (Auto) 4.9 Eos % (Auto) 0.0 Baso % (Auto) 0.2 Absolute Neuts (auto) 5.6 Absolute Lymphs (auto) 0.60 L Nucleated RBC % 0 Differential Comment COMMENT PT INR APTT D-Dimer Quant (PE/DVT) Specimen Type Sample Site pH Bicarbonate Actual Total CO2 Base Excess O2 Saturation ABG pCO2 ABG pO2 Jose Luis Test O2 Delivery Device Liter Flow Sodium 129 L Potassium 4.3 Chloride 94 L Carbon Dioxide 27.0 Anion Gap 8 BUN 16 Creatinine 1.28 Estim Creat Clear Calc 62.14 Est GFR (MDRD) Af Amer 74 Est GFR (MDRD) Non-Af 61 BUN/Creatinine Ratio 12.5 Glucose 234 H Hemoglobin A1c Lactic Acid 1.4 Calcium 8.5 Magnesium Ferritin Total Bilirubin 0.40 Direct Bilirubin AST 82 H ALT 66 H Alkaline Phosphatase 128 H Lactate Dehydrogenase Troponin I 0.030 C-React Prot Ext Range 314.00 H Total Protein 7.1 Albumin 2.3 L Globulin 4.8 H Albumin/Globulin Ratio 0.5 L Procalcitonin COVID-19 ([facility]) SARS Serology POC Glucose 08/26/20 08/26/20 08/26/20 13:30 13:30 13:30 WBC RBC Hgb Hct MCV MCH MCHC RDW Std Deviation RDW Coeff of Kina Plt Count MPV Immature Gran % (Auto) Neut % (Auto) Lymph % (Auto) Craven % (Auto) Eos % (Auto) Baso % (Auto) Absolute Neuts (auto) Absolute Lymphs (auto) Nucleated RBC % Differential Comment PT INR APTT D-Dimer Quant (PE/DVT) 4.62 H* Specimen Type Sample Site pH Bicarbonate Actual Total CO2 Base Excess O2 Saturation ABG pCO2 ABG pO2 Jose Luis Test O2 Delivery Device Liter Flow Sodium Potassium Chloride Carbon Dioxide Anion Gap BUN Creatinine Estim Creat Clear Calc Est GFR (MDRD) Af Amer Est GFR (MDRD) Non-Af BUN/Creatinine Ratio Glucose Hemoglobin A1c Lactic Acid Calcium Magnesium 2.0 Ferritin 765 H Total Bilirubin Direct Bilirubin AST ALT Alkaline Phosphatase Lactate Dehydrogenase 423 H Troponin I C-React Prot Ext Range Total Protein Albumin Globulin Albumin/Globulin Ratio Procalcitonin 1.05 H COVID-19 ([facility]) SARS Serology POC Glucose 08/26/20 08/26/20 08/26/20 16:15 20:47 20:58 WBC RBC Hgb Hct MCV MCH MCHC RDW Std Deviation RDW Coeff of Kina Plt Count MPV Immature Gran % (Auto) Neut % (Auto) Lymph % (Auto) Craven % (Auto) Eos % (Auto) Baso % (Auto) Absolute Neuts (auto) Absolute Lymphs (auto) Nucleated RBC % Differential Comment PT INR APTT D-Dimer Quant (PE/DVT) Specimen Type ART Sample Site L Radial pH 7.46 H Bicarbonate Actual 27.5 H Total CO2 29 Base Excess 4 H O2 Saturation 92 L ABG pCO2 39.0 ABG pO2 59 L Jose Luis Test Positive O2 Delivery Device Cannula Liter Flow 2.0 Sodium Potassium Chloride Carbon Dioxide Anion Gap BUN Creatinine Estim Creat Clear Calc Est GFR (MDRD) Af Amer Est GFR (MDRD) Non-Af BUN/Creatinine Ratio Glucose Hemoglobin A1c Lactic Acid Calcium Magnesium Ferritin Total Bilirubin Direct Bilirubin AST ALT Alkaline Phosphatase Lactate Dehydrogenase Troponin I C-React Prot Ext Range Total Protein Albumin Globulin Albumin/Globulin Ratio Procalcitonin COVID-19 ([facility]) Negative SARS Serology POC Glucose 221 H 08/27/20 08/27/20 08/27/20 05:12 05:12 05:12 WBC 5.9 RBC 4.04 L Hgb 12.5 L Hct 38.4 L MCV 95.0 H MCH 30.9 MCHC 32.6 RDW Std Deviation 46.5 H RDW Coeff of Kina 13.2 Plt Count 177 MPV 10.8 Immature Gran % (Auto) 0.700 Neut % (Auto) 88.0 H Lymph % (Auto) 6.4 L Craven % (Auto) 4.7 Eos % (Auto) 0.0 Baso % (Auto) 0.2 Absolute Neuts (auto) 5.2 Absolute Lymphs (auto) 0.38 L Nucleated RBC % 0 Differential Comment PT INR APTT D-Dimer Quant (PE/DVT) Specimen Type Sample Site pH Bicarbonate Actual Total CO2 Base Excess O2 Saturation ABG pCO2 ABG pO2 Jose Luis Test O2 Delivery Device Liter Flow Sodium 127 L Potassium 4.6 Chloride 92 L Carbon Dioxide 25.0 Anion Gap 10 BUN 16 Creatinine 1.23 Estim Creat Clear Calc 64.66 Est GFR (MDRD) Af Amer 77 Est GFR (MDRD) Non-Af 64 BUN/Creatinine Ratio 13.0 Glucose 302 H Hemoglobin A1c 9.8 H Lactic Acid Calcium 7.7 L Magnesium Ferritin Total Bilirubin 0.50 Direct Bilirubin AST 106 H ALT 77 H Alkaline Phosphatase 117 Lactate Dehydrogenase Troponin I C-React Prot Ext Range Total Protein 5.8 L Albumin 2.2 L Globulin 3.6 Albumin/Globulin Ratio 0.6 L Procalcitonin COVID-19 ([facility]) SARS Serology POC Glucose 08/27/20 08/27/20 08/27/20 06:26 08:07 12:02 WBC RBC Hgb Hct MCV MCH MCHC RDW Std Deviation RDW Coeff of Kina Plt Count MPV Immature Gran % (Auto) Neut % (Auto) Lymph % (Auto) Craven % (Auto) Eos % (Auto) Baso % (Auto) Absolute Neuts (auto) Absolute Lymphs (auto) Nucleated RBC % Differential Comment PT INR APTT D-Dimer Quant (PE/DVT) Specimen Type Sample Site pH Bicarbonate Actual Total CO2 Base Excess O2 Saturation ABG pCO2 ABG pO2 Jose Luis Test O2 Delivery Device Liter Flow Sodium Potassium Chloride Carbon Dioxide Anion Gap BUN Creatinine Estim Creat Clear Calc Est GFR (MDRD) Af Amer Est GFR (MDRD) Non-Af BUN/Creatinine Ratio Glucose Hemoglobin A1c Lactic Acid Calcium Magnesium Ferritin Total Bilirubin Direct Bilirubin AST ALT Alkaline Phosphatase Lactate Dehydrogenase Troponin I C-React Prot Ext Range Total Protein Albumin Globulin Albumin/Globulin Ratio Procalcitonin COVID-19 ([facility]) SARS Serology POC Glucose 306 H 281 H 319 H 08/27/20 08/27/20 08/27/20 16:52 19:15 20:36 WBC RBC Hgb Hct MCV MCH MCHC RDW Std Deviation RDW Coeff of Kina Plt Count MPV Immature Gran % (Auto) Neut % (Auto) Lymph % (Auto) Craven % (Auto) Eos % (Auto) Baso % (Auto) Absolute Neuts (auto) Absolute Lymphs (auto) Nucleated RBC % Differential Comment PT 16.5 H INR 1.4 APTT 42.7 H D-Dimer Quant (PE/DVT) Specimen Type Sample Site pH Bicarbonate Actual Total CO2 Base Excess O2 Saturation ABG pCO2 ABG pO2 Jose Luis Test O2 Delivery Device Liter Flow Sodium Potassium Chloride Carbon Dioxide Anion Gap BUN Creatinine Estim Creat Clear Calc Est GFR (MDRD) Af Amer Est GFR (MDRD) Non-Af BUN/Creatinine Ratio Glucose Hemoglobin A1c Lactic Acid Calcium Magnesium Ferritin Total Bilirubin Direct Bilirubin AST ALT Alkaline Phosphatase Lactate Dehydrogenase Troponin I C-React Prot Ext Range Total Protein Albumin Globulin Albumin/Globulin Ratio Procalcitonin COVID-19 ([facility]) SARS Serology POC Glucose 379 H 327 H 08/28/20 08/28/20 08/28/20 02:18 02:18 02:18 WBC 5.3 RBC 4.16 L Hgb 12.9 L Hct 40.7 MCV 97.8 H MCH 31.0 MCHC 31.7 L RDW Std Deviation 47.7 H RDW Coeff of Kina 13.1 Plt Count 178 MPV 11.1 Immature Gran % (Auto) Neut % (Auto) Lymph % (Auto) Craven % (Auto) Eos % (Auto) Baso % (Auto) Absolute Neuts (auto) Absolute Lymphs (auto) Nucleated RBC % Differential Comment PT INR APTT D-Dimer Quant (PE/DVT) Specimen Type Sample Site pH Bicarbonate Actual Total CO2 Base Excess O2 Saturation ABG pCO2 ABG pO2 Jose Luis Test O2 Delivery Device Liter Flow Sodium 132 L Potassium 4.6 Chloride 97 L Carbon Dioxide 28.0 Anion Gap 7 BUN 19 H Creatinine 1.04 Estim Creat Clear Calc 76.48 Est GFR (MDRD) Af Amer 94 Est GFR (MDRD) Non-Af 77 BUN/Creatinine Ratio 18.3 Glucose 336 H Hemoglobin A1c Lactic Acid Calcium 8.2 L Magnesium 2.5 Ferritin Total Bilirubin 0.30 Direct Bilirubin 0.14 AST 106 H ALT 98 H Alkaline Phosphatase 117 Lactate Dehydrogenase Troponin I C-React Prot Ext Range Total Protein 6.0 L Albumin 2.2 L Globulin 3.8 Albumin/Globulin Ratio Procalcitonin COVID-19 ([facility]) SARS Serology Nonreactive POC Glucose 08/28/20 02:18 WBC RBC Hgb Hct MCV MCH MCHC RDW Std Deviation RDW Coeff of Kina Plt Count MPV Immature Gran % (Auto) Neut % (Auto) Lymph % (Auto) Craven % (Auto) Eos % (Auto) Baso % (Auto) Absolute Neuts (auto) Absolute Lymphs (auto) Nucleated RBC % Differential Comment PT INR APTT 46.0 H D-Dimer Quant (PE/DVT) Specimen Type Sample Site pH Bicarbonate Actual Total CO2 Base Excess O2 Saturation ABG pCO2 ABG pO2 Jose Luis Test O2 Delivery Device Liter Flow Sodium Potassium Chloride Carbon Dioxide Anion Gap BUN Creatinine Estim Creat Clear Calc Est GFR (MDRD) Af Amer Est GFR (MDRD) Non-Af BUN/Creatinine Ratio Glucose Hemoglobin A1c Lactic Acid Calcium Magnesium Ferritin Total Bilirubin Direct Bilirubin AST ALT Alkaline Phosphatase Lactate Dehydrogenase Troponin I C-React Prot Ext Range Total Protein Albumin Globulin Albumin/Globulin Ratio Procalcitonin COVID-19 ([facility]) SARS Serology POC Glucose Microbiology 08/26/20 21:00 Interface Orders Gram Stain - Final 08/26/20 21:00 Interface Orders Respiratory Culture - Preliminary Appears to be normal respiratory srinivas. Further studies to follow. 08/26/20 20:36 Mucosa - Nasopharyngeal Respiratory Panel (PCR) - Final 08/26/20 22:10 Urine, Clean Catch Legionella Antigen - Final 08/26/20 13:45 Urine, Clean Catch Streptococcus pneumoniae Antigen (M - Final 08/26/20 13:30 Mucosa - Nose SARS-CoV-2 Antigen (Rapid) - Final Clinical Impression(s) from Imaging Studies Chest X-Ray 08/26/20 13:12 IMPRESSION: Dense infiltrate in the left midlung. Mild increased markings in the right upper lobe. Radiographic follow-up is recommended until clearing. Electronically Signed: Boston Clay, at 13:58 EST , Service support , Chest CTA 08/26/20 13:27 IMPRESSION: Multiple bilateral small pulmonary emboli as described. Dense infiltration in the left upper lobe as well as in the left lower lobe and focal infiltrate in the right upper lobe. Radiographic follow-up is recommended. Electronically Signed: Boston Clay, at 15:32 EST , Service support , Current Medications Acetaminophen (Acetaminophen 325 Mg Tablet) 650 mg PO Q6H PRN PRN PRN Reason: Pain Score 1-10/Temp > 100.7 F Last Admin: 08/27/20 04:13 Dose: 650 mg Documented by: Al Hydroxide/Mg Hydroxide (Mag Hydrox/Al Hydrox/Simeth 30 Ml Udc) 30 ml PO Q6H PRN PRN PRN Reason: Gastric Burning Albuterol Sulfate (Albuterol 2.5 Mg/3 Ml Vial.Neb.) 2.5 mg INHALATION Q2H PRN PRN PRN Reason: Dyspnea, wheezing Dexamethasone (Dexamethasone 4 Mg Tablet) 6 mg PO DAILY [facility] Stop: 09/04/20 10:01 Dextrose (Dextrose 50%-Water 25 Gm/50 Ml Disp.Syrin) 0 gm IV X1 PRN; Protocol PRN Reason: Hypoglycemia Glucagon (Glucagon 1 Mg/Ml Syringe) 1 mg IM .X1 PRN PRN Reason: Hypoglycemia Guaifenesin (Guaifenesin 10 Ml Udc (200mg/10ml)) 20 ml PO Q4H PRN PRN PRN Reason: COUGH Heparin Sodium (Porcine) (Heparin Injection (Vial) 5,000 Unit/Ml Vial) 0 unit IV UD PRN; Protocol PRN Reason: dose adjustment Last Admin: 08/27/20 20:40 Dose: 4,000 unit Documented by: Hydralazine HCl (Hydralazine 20 Mg/Ml Vial) 10 mg IV Q4H PRN PRN PRN Reason: SBP > 160 Sodium Chloride () 1,000 mls @ 100 mls/hr IV .Q10H [facility]ARI Last Admin: 08/28/20 03:42 Dose: 100 mls/hr Documented by: Ceftriaxone Sodium 2 gm/ (Sodium Chloride) 50 mls @ 100 mls/hr IV Q24 ZARI Last Infusion: 08/27/20 10:10 Dose: Infused Documented by: Heparin Sodium/Dextrose () 25,000 units in 250 mls @ 10 mls/hr IV .Q25H [facility]; Protocol Last Titration: 08/28/20 03:00 Dose: 1,100 units/hr, 11 mls/hr Documented by: Remdesivir 100 mg/ Sodium (Chloride) 250 mls @ 125 mls/hr IV DAILY [facility]; Protocol Stop: 08/31/20 11:59 Insulin Glargine (Insulin Glargine 100 Units/Ml Pen) 10 units SC BID [facility] Last Admin: 08/27/20 20:38 Dose: 10 units Documented by: Insulin Human Lispro (Insulin Lispro 100 Unit/Ml Insuln.Pen) 0 unit SC [facility]; Protocol Last Admin: 08/27/20 20:37 Dose: 8 units Documented by: Levothyroxine Sodium (Levothyroxine 100 Mcg Tablet) 100 mcg PO DAILY [facility] Last Admin: 08/27/20 08:24 Dose: 100 mcg Documented by: Lisinopril (Lisinopril 20 Mg Tablet) 20 mg PO DAILY [facility] Last Admin: 08/27/20 08:27 Dose: 20 mg Documented by: Magnesium Hydroxide (Magnesium Hydroxide 30 Ml Udc) 30 ml PO DAILY PRN PRN PRN Reason: Constipation Melatonin (Melatonin 3 Mg Tablet) 3 mg PO QHS PRN PRN PRN Reason: INSOMNIA Last Admin: 08/26/20 20:29 Dose: 3 mg Documented by: Nitroglycerin (Nitroglycerin (Inpatient Use) 0.4 Mg Tab.Subl) 0.4 mg SUBLINGUAL Q5M PRN PRN Reason: CARDIAC/CHEST PAIN Ondansetron HCl (Ondansetron 4 Mg/2 Ml Vial) 4 mg IV Q8H PRN PRN PRN Reason: NAUSEA/VOMITING Prochlorperazine Edisylate (Prochlorperazine 10 Mg/2 Ml Vial) 5 mg IV Q4H PRN PRN PRN Reason: Breakthrough Nausea/Vomiting Psyllium Hydrophilic Mucilloid (Psyllium 1 Packet) 1 packet PO DAILY PRN PRN PRN Reason: Constipation Senna/Docusate Sodium (Senna/Docusate Sodium 1 Tablet) 2 tablet PO BID PRN PRN PRN Reason: Constipation Sodium Chloride (0.9% Saline Lock 10 Ml Syringe) 10 - 40 ml IV UD PRN PRN Reason: SALINE FLUSH Throat Lozenges (Benzocaine/Menthol 1 Lozenge) 1 lozenge MUCOUS MEM Q2H PRN PRN PRN Reason: SORE THROAT Medical Necessity - Tobacco Use Smoking Status: Never smoker Assessment/Plan All Active Problems (Last Updated 12/27/18 @ 07:[address] Ruben Sandoval, DO) Right shoulder pain (Acute) Abscess in epidural space of lumbar spine (Acute) Lumbar discitis (Acute) Psoas abscess (Acute) Bilateral pneumonia (Acute) Suspected COVID-19 virus infection (Acute) MSSA bacteremia (Acute) RECOMMENDATIONS: 1. Continue antimicrobials and systemic anticoagulation. 2. Defer need for Decadron and remdesivir to infectious diseases. 3. Wean supplemental oxygen to maintain saturations at or above 90%. 4. Encourage incentive spirometer use and mobilize patient as tolerated. 5. Strongly recommend the use of BiPAP therapy, at a minimum, when sleeping. IMPRESSIONS: 1. Acute hypoxemic respiratory failure Most likely multifactorial in etiology with bilateral pulmonary emboli and community-acquired pneumonia contributing. Although there was initial concern for coronavirus, rapid antigen and follow-up PCR testing was negative. In addition, SARS serology was also negative. From my perspective, I would be okay with discontinuing Decadron and remdesivir. However, I will defer this decision to infectious diseases. In the interim, the patient will be continued on supplemental oxygen to maintain saturations at or above 90%. Recommend continuing systemic anticoagulation and empiric antimicrobials. Encourage incentive spirometer use and mobilize patient as tolerated. 2. History of obstructive sleep apnea Strongly recommend use of BiPAP therapy at a minimum with naps and nightly. 3. Morbid obesity/diabetes mellitus/hypertension/hyperlipidemia/hypothyroidism Complicates care, management, recovery and prognosis. Continue home medications as indicated. This note was generated with [employer] dictation software. It may contain incorrect words, spelling, and punctuation that were not noted in checking the note before signing. Inpatient E&M: 66531 Subs Hosp L2
[2020-08-28 09:36] LABS: Bedside Glucose 319 mg/dL (70-110)
[2020-08-28] MEDS: Levothyroxine 100 MCG Tablet PO (09:40)
[2020-08-28] MEDS: Lisinopril 20 MG Tablet PO (09:40)
[2020-08-28] MEDS: Insulin Lispro 100 UNIT/ML INSULN.PEN SC ×4 (09:41→21:56)
[2020-08-28] MEDS: dexAMETHasone 4 MG Tablet 6 MG PO (09:41)
[2020-08-28 09:55] LABS: Partial Thromboplast Time 35.2 Seconds (24.1-36.2)
[2020-08-28] MEDS: Insulin Lispro 100 UNIT/ML INSULN.PEN 10 UNIT SC ×2 (12:58→15:49)
[2020-08-28 13:10] LABS: Bedside Glucose 398 mg/dL (70-110)
--- NOTE | 2020-08-28 15:40 | PCM.PN.ID ---
Patient Problems: Active and Suspected Problems (Last Updated 12/27/18 @ 07:[address] Ruben Sandoval, DO) Bilateral pneumonia (Acute) Suspected COVID-19 virus infection (Acute) Subjective: Feeling much better today, off O2 this afternoon. No fever. - Physical Exam Vitals/I&O's: Vital Signs Temp Pulse Resp BP Pulse Ox 97.0 F L 78 18 158/87 H 93 08/28/20 09:13 08/28/20 14:00 08/28/20 09:13 08/28/20 09:13 08/28/20 14:00 Oxygen Flow Rate (L/min) 2 Oxygen Delivery Method Room Air Weight: 173.6 kg Body Mass Index (BMI) 55.4 Intake and Output for Last 24 Hours 08/26/20 08/27/20 08/28/20 23:59 23:59 23:59 Intake Total 805 / 1105 3971.67 / 4211.67 3214.92 / 3214.92 Output Total 2550 / 3050 1550 / 1550 Balance 805 / 605 1421.67 / 1161.67 1664.92 / 1664.92 General: Alert, Cooperative, No apparent distress Lungs: Clear to auscultation, Diminished Cardiovascular: Regular rate, Regular Rhythm Abdomen: Soft, Non Tender, Non-Distended Skin: No rashes Microbiology Past 72 Hours 08/26/20 14:45 Blood Culture (Wb) - Other Blood Culture - Preliminary No growth in 48 hours. 08/26/20 13:30 Blood Culture (Wb) - Anticubital Right Blood Culture - Preliminary No growth in 48 hours. 08/26/20 21:00 Interface Orders Gram Stain - Final 08/26/20 21:00 Interface Orders Respiratory Culture - Preliminary Appears to be normal respiratory srinivas. Further studies to follow. 08/26/20 20:36 Mucosa - Nasopharyngeal Respiratory Panel (PCR) - Final 08/26/20 22:10 Urine, Clean Catch Legionella Antigen - Final 08/26/20 13:45 Urine, Clean Catch Streptococcus pneumoniae Antigen (M - Final 08/26/20 13:30 Mucosa - Nose SARS-CoV-2 Antigen (Rapid) - Final Laboratory Results 08/27/20 16:52: POC Glucose 379 H 08/27/20 19:15: PT 16.5 H, INR 1.4, APTT 42.7 H 08/27/20 20:36: POC Glucose 327 H 08/28/20 02:18: WBC 5.3, RBC 4.16 L, Hgb 12.9 L, Hct 40.7, MCV 97.8 H, MCH 31.0, MCHC 31.7 L, RDW Std Deviation 47.7 H, RDW Coeff of Kina 13.1, Plt Count 178, MPV 11.1 08/28/20 02:18: Sodium 132 L, Potassium 4.6, Chloride 97 L, Carbon Dioxide 28.0, Anion Gap 7, BUN 19 H, Creatinine 1.04, Estim Creat Clear Calc 76.48, Est GFR (MDRD) Af Amer 94, Est GFR (MDRD) Non-Af 77, BUN/Creatinine Ratio 18.3, Glucose 336 H, Calcium 8.2 L, Magnesium 2.5, Total Bilirubin 0.30, Direct Bilirubin 0.14, AST 106 H, ALT 98 H, Alkaline Phosphatase 117, Total Protein 6.0 L, Albumin 2.2 L, Globulin 3.8 08/28/20 02:18: SARS Serology Nonreactive 08/28/20 02:18: APTT 46.0 H 08/28/20 09:00: APTT 35.2 08/28/20 09:27: POC Glucose 319 H 08/28/20 12:53: POC Glucose 398 H Current Medications Acetaminophen (Acetaminophen 325 Mg Tablet) 650 mg PO Q6H PRN PRN PRN Reason: Pain Score 1-10/Temp > 100.7 F Last Admin: 08/27/20 04:13 Dose: 650 mg Documented by: Al Hydroxide/Mg Hydroxide (Mag Hydrox/Al Hydrox/Simeth 30 Ml Udc) 30 ml PO Q6H PRN PRN PRN Reason: Gastric Burning Albuterol Sulfate (Albuterol 2.5 Mg/3 Ml Vial.Neb.) 2.5 mg INHALATION Q2H PRN PRN PRN Reason: Dyspnea, wheezing Calamine/Phenol (Menthol/Lanolin/Calamine/Znox 113 Gm Tube) 1 applic TOPICAL BID [facility]I; Protocol Dexamethasone (Dexamethasone 4 Mg Tablet) 6 mg PO DAILY [facility] Stop: 09/04/20 10:01 Last Admin: 08/28/20 09:41 Dose: 6 mg Documented by: Dextrose (Dextrose 50%-Water 25 Gm/50 Ml Disp.Syrin) 0 gm IV X1 PRN; Protocol PRN Reason: Hypoglycemia Glucagon (Glucagon 1 Mg/Ml Syringe) 1 mg IM .X1 PRN PRN Reason: Hypoglycemia Guaifenesin (Guaifenesin 10 Ml Udc (200mg/10ml)) 20 ml PO Q4H PRN PRN PRN Reason: COUGH Heparin Sodium (Porcine) (Heparin Injection (Vial) 5,000 Unit/Ml Vial) 0 unit IV UD PRN; Protocol PRN Reason: dose adjustment Last Admin: 08/27/20 20:40 Dose: 4,000 unit Documented by: Hydralazine HCl (Hydralazine 20 Mg/Ml Vial) 10 mg IV Q4H PRN PRN PRN Reason: SBP > 160 Sodium Chloride () 1,000 mls @ 100 mls/hr IV .Q10H [facility] Last Admin: 08/28/20 12:59 Dose: 100 mls/hr Documented by: Ceftriaxone Sodium 2 gm/ (Sodium Chloride) 50 mls @ 100 mls/hr IV Q24 [facility] Last Infusion: 08/28/20 10:20 Dose: Infused Documented by: Heparin Sodium/Dextrose () 25,000 units in 250 mls @ 10 mls/hr IV .Q25H [facility]; Protocol Last Titration: 08/28/20 10:35 Dose: 1,300 units/hr, 13 mls/hr Documented by: Remdesivir 100 mg/ Sodium (Chloride) 250 mls @ 125 mls/hr IV DAILY [facility]; Protocol Stop: 08/31/20 11:59 Last Infusion: 08/28/20 13:00 Dose: Infused Documented by: Insulin Glargine (Insulin Glargine 100 Units/Ml Pen) 25 units SC BID [facility] Insulin Human Lispro (Insulin Lispro 100 Unit/Ml Insuln.Pen) 0 unit SC ACHS [facility]; Protocol Last Admin: 08/28/20 12:59 Dose: 10 units Documented by: Insulin Human Lispro (Insulin Lispro 100 Unit/Ml Insuln.Pen) 10 unit SC TIDAC [facility] Last Admin: 08/28/20 12:58 Dose: 10 units Documented by: Levothyroxine Sodium (Levothyroxine 100 Mcg Tablet) 100 mcg PO DAILY [facility] Last Admin: 08/28/20 09:40 Dose: 100 mcg Documented by: Lisinopril (Lisinopril 20 Mg Tablet) 20 mg PO DAILY [facility] Last Admin: 08/28/20 09:40 Dose: 20 mg Documented by: Loperamide HCl (Loperamide 2 Mg Capsule) 4 mg PO X1 ONE Stop: 08/28/20 15:46 Magnesium Hydroxide (Magnesium Hydroxide 30 Ml Udc) 30 ml PO DAILY PRN PRN PRN Reason: Constipation Melatonin (Melatonin 3 Mg Tablet) 3 mg PO QHS PRN PRN PRN Reason: INSOMNIA Last Admin: 08/26/20 20:29 Dose: 3 mg Documented by: Nitroglycerin (Nitroglycerin (Inpatient Use) 0.4 Mg Tab.Subl) 0.4 mg SUBLINGUAL Q5M PRN PRN Reason: CARDIAC/CHEST PAIN Ondansetron HCl (Ondansetron 4 Mg/2 Ml Vial) 4 mg IV Q8H PRN PRN PRN Reason: NAUSEA/VOMITING Prochlorperazine Edisylate (Prochlorperazine 10 Mg/2 Ml Vial) 5 mg IV Q4H PRN PRN PRN Reason: Breakthrough Nausea/Vomiting Psyllium Hydrophilic Mucilloid (Psyllium 1 Packet) 1 packet PO DAILY PRN PRN PRN Reason: Constipation Senna/Docusate Sodium (Senna/Docusate Sodium 1 Tablet) 2 tablet PO BID PRN PRN PRN Reason: Constipation Sodium Chloride (0.9% Saline Lock 10 Ml Syringe) 10 - 40 ml IV UD PRN PRN Reason: SALINE FLUSH Throat Lozenges (Benzocaine/Menthol 1 Lozenge) 1 lozenge MUCOUS MEM Q2H PRN PRN PRN Reason: SORE THROAT Medical Necessity - Tobacco Use Smoking Status: Never smoker Route of nutrition/ use of supplements: [] Nutritional Intake: [] IV Site: [] Villagran Catheter: [] - Assessment/Plan Antibiotics: [] Assessment/Plan: [] Active and Suspected Problems (Last Updated 12/27/18 @ 07:[address] Ruben Sandoval, DO) Bilateral pneumonia (Acute) Suspected COVID-19 virus infection (Acute) suspect covid based on symptoms, PEs, and lymphopenia. PCR neg. Covid Ab was neg, but still likely too early in general to expect antibodies to have developed. uAg neg. Cont ceftriaxone for now, on dex and hep gtt. Sx dramatically better after starting remdesivir yesterday. Keep in isolation. Plan will be for another week of isolation, discharge home to complete total 10 days of dex, no need for po abx at home. Will follow
[2020-08-28] MEDS: Loperamide 2 MG Capsule 4 MG PO (15:51)
[2020-08-28 16:05] LABS: Bedside Glucose 305 mg/dL (70-110)
--- NOTE | 2020-08-28 16:20 | CASEMGMT ---
PAOLA GUZMAN NOTE: Pt is currently on RA, but has been requiring BIPAP @ HS w/O2 bleed-in. Call placed to pt's room. He states he used to have a BIPAP but that he returned the unit to the [employer], stating I didn't feel it was necessary so I sent it back. He does not remember what the companies name was. He states he had the sleep study done @ [facility] some time after 2014. Call placed to [facility], [place] and spoke w/Mamie. She states they did provide the BIPAP to pt in 2016, but that pt is now inactive with them. She was unable to find pt's sleep study. She states they would need to review copy of sleep study to determine if they would be able to get another BIPAP unit for pt through his insurance. They would also need order for BIPAP and documentation/chart notes faxed to them re: pt's need of BIPAP. Call placed to Medical Records @ [facility] @ [phone]. Pt had split-night sleep study done in Apr 2016. They will fax copy of pt's sleep study to [facility]. Copy of sleep study to be faxed to [facility], [place] once it is received for [facility] [place] to determine pt's eligibility for new BIPAP unit. Pt may need another sleep study completed prior to being eligible for a BIPAP unit. Dr Luna notified. New order for overnight continuous pulse ox ordered. CPS notified by PAOLA Marsh. Pt also informed this PAOLA GUZMAN that he has a working glucometer at home and he has all the supplies needed to check his blood sugars. He states he had been checking them prior to getting ill, but one he became ill, he stopped checking them. Johnnie SWEET RN, CM
[2020-08-28 16:44] LABS: Partial Thromboplast Time 38.1 Seconds (24.1-36.2)
[2020-08-28] MEDS: Heparin Injection (Vial) 5,000 UNIT/ML VIAL IV ×2 (17:00→23:56)
[2020-08-28] MEDS: HEPARIN/D5w 25,000 UNITS 25,000 UNITS/250 ML IV.SOLN. 15 UNITS IV (17:04)
[2020-08-28] MEDS: Menthol/Lanolin/Calamine/Znox 113 GM Tube 1 APPLIC TOPICAL (21:55)
[2020-08-28 22:16] LABS: Bedside Glucose 304 mg/dL (70-110)
[2020-08-28 23:25] LABS: Partial Thromboplast Time 40.6 Seconds (24.1-36.2)
[2020-08-29] VITALS (12 sets, daily range): BP systolic 145–165; BP diastolic 68–98; PULSE 61–80; RESP 12–21; TEMP 36.5–37; O2SAT 94–99
--- NOTE | 2020-08-29 | CPS ---
Pt on room air overnight pulse ox trend
--- NOTE | 2020-08-29 03:05 | NURSING ---
Pts o2 sats noted to be dipping down into the upper 50's, respiratory therapy made aware since pt is on continuous pulse ox study. Respiratory therapy to come and place pt on bipap at this time.
[2020-08-29] MEDS: 0.9% Normal Saline 1,000 ML 100 ML IV (04:58)
[2020-08-29 06:15] LABS: Hematocrit 40.7 % (40-54); Mean Corp Hgb Conc 31.9 g/dL (32-36); Mean Corpuscular Hgb 31.3 pg (27.0-32.0); Mean Corpuscular Volume 98.1 fL (80-94); Mean Platelet Vol. 10.9 fl (6.2-12.0); Platelet Count 205 K/mm3 (150-450); Red Blood Count 4.15 M/mm3 (4.6-6.2); White Blood Count 6.2 K/mm3 (4.4-11.0)
[2020-08-29 06:25] LABS: Partial Thromboplast Time 42.6 Seconds (24.1-36.2)
[2020-08-29 06:47] LABS: AST(SGOT) 67 U/L (15-37); Alanine Aminotransfer ALT/SGPT 100 U/L (16-61); Albumin, Serum 2.1 g/dL (3.2-5.0); Alkaline Phosphatase 108 U/L (45-117); Anion Gap 7 (5-15); BUN 23 mg/dL (7-18); BUN/Creat Ratio 21.5 RATIO (10-20); Bilirubin, Direct 0.09 mg/dL (0.00-0.30); Calcium,Total 8.3 mg/dL (8.5-10.1); Chloride 101 mmol/L (98-107); Creatinine, Serum 1.07 mg/dL (0.70-1.30); EST Glomerular Filtration Rate 75 mL/min (>60); Est Glom Filt Rate - Afr Amer 91 mL/min (>60); Estimated Creatinine Clearance 74.33 ml/min; Globulin 4.4 g/dL (2.2-4.2); Glucose 322 mg/dL (74-106); Potassium 4.5 mmol/L (3.5-5.1); Protein, Total 6.5 g/dL (6.4-8.2); Sodium Level 133 mmol/L (136-145)
--- NOTE | 2020-08-29 06:52 | PCM.PN.PUL ---
Patient Problems: Active and Suspected Problems (Last Updated 12/27/18 @ 07:[address] Ruben Sandoval, DO) Bilateral pneumonia (Acute) Suspected COVID-19 virus infection (Acute) Subjective: The patient was seen and examined at the bedside this morning. Events from the last 24 hours have been reviewed. The patient is currently afebrile, hemodynamically stable and maintaining appropriate oxygen saturations on room air. The patient does desaturate profoundly with sleep at night. He did have a sleep study completed in April 2016. The patient was noted to have severe obstructive sleep apnea with an overall AHI of 81 events per hour. The patient was titrated on CPAP with a pressure support of 16 cm of water. Despite the CPAP pressure support, the patient was still noted to be hypoxemic, for which it was recommended that an overnight oximetry study be completed on CPAP. Objective: The patient's most recent lab work, culture data and imaging studies have all been personally reviewed. Coronavirus rapid antigen testing was negative. Follow-up coronavirus PCR was also negative. SARS serology was nonreactive. The remainder of the patient's infectious work-up was unremarkable. - Physical Exam Vitals/I&O's: Vital Signs Temp Pulse Resp BP Pulse Ox 97.7 F L 61 21 H 145/68 H 97 08/29/20 03:00 08/29/20 03:11 08/29/20 03:11 08/29/20 03:00 08/29/20 03:11 Oxygen Flow Rate (L/min) 2 Oxygen Delivery Method Room Air Weight: 382 lb 15.087 oz Body Mass Index (BMI) 55.4 Intake and Output for Last 24 Hours 08/27/20 08/28/20 08/29/20 23:59 23:59 23:59 Intake Total 3971.67 / 4211.67 4480.78 / 4480.78 1475.6 / 1475.6 Output Total 2550 / 3050 2350 / 2350 350 / 350 Balance 1421.67 / 1161.67 2130.78 / 2130.78 1125.6 / 1125.6 General: Alert, Cooperative, No apparent distress, - - Morbidly obese HEENT: Atraumatic, PERRLA, Normocephalic Oral: No Gingival or Mucosal Lesions/ Ulcerations Neck: Supple, No Nodes, Trachea Midline Lungs: No rhonchi, No wheeze, No rales, Diminished Cardiovascular: Regular rate, Regular Rhythm Abdomen: Bowel Sounds Present, Soft, Non Tender, Obese Extremities: No clubbing, No cyanosis, No edema Skin: No breakdown Musculoskeletal: No Tenderness to Palpation of Joints or Extremities, No Muscle Wasting Lymphatic: No Cervical, Supraclavicular, or Inguinal Adenopathy Neurological: Cranial nerves II-XII grossly intact, Neuro grossly intact Psych/Mental Status: Alert and oriented to time, place, person, mood and affect Labs (Last 48 Hours) 08/27/20 08/27/20 08/27/20 05:12 06:26 08:07 WBC RBC Hgb Hct MCV MCH MCHC RDW Std Deviation RDW Coeff of Kina Plt Count MPV PT INR APTT Sodium Potassium Chloride Carbon Dioxide Anion Gap BUN Creatinine Estim Creat Clear Calc Est GFR (MDRD) Af Amer Est GFR (MDRD) Non-Af BUN/Creatinine Ratio Glucose Hemoglobin A1c 9.8 H Calcium Magnesium Total Bilirubin Direct Bilirubin AST ALT Alkaline Phosphatase Total Protein Albumin Globulin SARS Serology POC Glucose 306 H 281 H 08/27/20 08/27/20 08/27/20 12:02 16:52 19:15 WBC RBC Hgb Hct MCV MCH MCHC RDW Std Deviation RDW Coeff of Kina Plt Count MPV PT 16.5 H INR 1.4 APTT 42.7 H Sodium Potassium Chloride Carbon Dioxide Anion Gap BUN Creatinine Estim Creat Clear Calc Est GFR (MDRD) Af Amer Est GFR (MDRD) Non-Af BUN/Creatinine Ratio Glucose Hemoglobin A1c Calcium Magnesium Total Bilirubin Direct Bilirubin AST ALT Alkaline Phosphatase Total Protein Albumin Globulin SARS Serology POC Glucose 319 H 379 H 08/27/20 08/28/20 08/28/20 20:36 02:18 02:18 WBC 5.3 RBC 4.16 L Hgb 12.9 L Hct 40.7 MCV 97.8 H MCH 31.0 MCHC 31.7 L RDW Std Deviation 47.7 H RDW Coeff of Kina 13.1 Plt Count 178 MPV 11.1 PT INR APTT Sodium 132 L Potassium 4.6 Chloride 97 L Carbon Dioxide 28.0 Anion Gap 7 BUN 19 H Creatinine 1.04 Estim Creat Clear Calc 76.48 Est GFR (MDRD) Af Amer 94 Est GFR (MDRD) Non-Af 77 BUN/Creatinine Ratio 18.3 Glucose 336 H Hemoglobin A1c Calcium 8.2 L Magnesium 2.5 Total Bilirubin 0.30 Direct Bilirubin 0.14 AST 106 H ALT 98 H Alkaline Phosphatase 117 Total Protein 6.0 L Albumin 2.2 L Globulin 3.8 SARS Serology POC Glucose 327 H 08/28/20 08/28/20 08/28/20 02:18 02:18 09:00 WBC RBC Hgb Hct MCV MCH MCHC RDW Std Deviation RDW Coeff of Kina Plt Count MPV PT INR APTT 46.0 H 35.2 Sodium Potassium Chloride Carbon Dioxide Anion Gap BUN Creatinine Estim Creat Clear Calc Est GFR (MDRD) Af Amer Est GFR (MDRD) Non-Af BUN/Creatinine Ratio Glucose Hemoglobin A1c Calcium Magnesium Total Bilirubin Direct Bilirubin AST ALT Alkaline Phosphatase Total Protein Albumin Globulin SARS Serology Nonreactive POC Glucose 08/28/20 08/28/20 08/28/20 09:27 12:53 15:47 WBC RBC Hgb Hct MCV MCH MCHC RDW Std Deviation RDW Coeff of Kina Plt Count MPV PT INR APTT Sodium Potassium Chloride Carbon Dioxide Anion Gap BUN Creatinine Estim Creat Clear Calc Est GFR (MDRD) Af Amer Est GFR (MDRD) Non-Af BUN/Creatinine Ratio Glucose Hemoglobin A1c Calcium Magnesium Total Bilirubin Direct Bilirubin AST ALT Alkaline Phosphatase Total Protein Albumin Globulin SARS Serology POC Glucose 319 H 398 H 305 H 08/28/20 08/28/20 08/28/20 16:27 21:53 23:04 WBC RBC Hgb Hct MCV MCH MCHC RDW Std Deviation RDW Coeff of Kina Plt Count MPV PT INR APTT 38.1 H 40.6 H Sodium Potassium Chloride Carbon Dioxide Anion Gap BUN Creatinine Estim Creat Clear Calc Est GFR (MDRD) Af Amer Est GFR (MDRD) Non-Af BUN/Creatinine Ratio Glucose Hemoglobin A1c Calcium Magnesium Total Bilirubin Direct Bilirubin AST ALT Alkaline Phosphatase Total Protein Albumin Globulin SARS Serology POC Glucose 304 H 08/29/20 08/29/20 08/29/20 06:00 06:00 06:00 WBC 6.2 RBC 4.15 L Hgb 13.0 Hct 40.7 MCV 98.1 H MCH 31.3 MCHC 31.9 L RDW Std Deviation 47.0 H RDW Coeff of Kina 13.0 Plt Count 205 MPV 10.9 PT INR APTT 42.6 H Sodium 133 L Potassium 4.5 Chloride 101 Carbon Dioxide 25.0 Anion Gap 7 BUN 23 H Creatinine 1.07 Estim Creat Clear Calc 74.33 Est GFR (MDRD) Af Amer 91 Est GFR (MDRD) Non-Af 75 BUN/Creatinine Ratio 21.5 H Glucose 322 H Hemoglobin A1c Calcium 8.3 L Magnesium Total Bilirubin 0.30 Direct Bilirubin 0.09 AST 67 H ALT 100 H Alkaline Phosphatase 108 Total Protein 6.5 Albumin 2.1 L Globulin 4.4 H SARS Serology POC Glucose Microbiology 08/26/20 14:45 Blood Culture (Wb) - Other Blood Culture - Preliminary No growth in 48 hours. 08/26/20 13:30 Blood Culture (Wb) - Anticubital Right Blood Culture - Preliminary No growth in 48 hours. 08/26/20 21:00 Interface Orders Gram Stain - Final 08/26/20 21:00 Interface Orders Respiratory Culture - Preliminary Appears to be normal respiratory srinivas. Further studies to follow. Clinical Impression(s) from Imaging Studies Chest X-Ray 08/26/20 13:12 IMPRESSION: Dense infiltrate in the left midlung. Mild increased markings in the right upper lobe. Radiographic follow-up is recommended until clearing. Electronically Signed: Boston Clay, at 13:58 EST , Service support , Chest CTA 08/26/20 13:27 IMPRESSION: Multiple bilateral small pulmonary emboli as described. Dense infiltration in the left upper lobe as well as in the left lower lobe and focal infiltrate in the right upper lobe. Radiographic follow-up is recommended. Electronically Signed: Boston Clay, at 15:32 EST , Service support , Current Medications Acetaminophen (Acetaminophen 325 Mg Tablet) 650 mg PO Q6H PRN PRN PRN Reason: Pain Score 1-10/Temp > 100.7 F Last Admin: 08/27/20 04:13 Dose: 650 mg Documented by: Al Hydroxide/Mg Hydroxide (Mag Hydrox/Al Hydrox/Simeth 30 Ml Udc) 30 ml PO Q6H PRN PRN PRN Reason: Gastric Burning Albuterol Sulfate (Albuterol 2.5 Mg/3 Ml Vial.Neb.) 2.5 mg INHALATION Q2H PRN PRN PRN Reason: Dyspnea, wheezing Calamine/Phenol (Menthol/Lanolin/Calamine/Znox 113 Gm Tube) 1 applic TOPICAL BID ZARI; Protocol Last Admin: 08/28/20 21:55 Dose: 1 applicatio Documented by: Dexamethasone (Dexamethasone 4 Mg Tablet) 6 mg PO DAILY ZARI Stop: 09/04/20 10:01 Last Admin: 08/28/20 09:41 Dose: 6 mg Documented by: Dextrose (Dextrose 50%-Water 25 Gm/50 Ml Disp.Syrin) 0 gm IV X1 PRN; Protocol PRN Reason: Hypoglycemia Glucagon (Glucagon 1 Mg/Ml Syringe) 1 mg IM .X1 PRN PRN Reason: Hypoglycemia Guaifenesin (Guaifenesin 10 Ml Udc (200mg/10ml)) 20 ml PO Q4H PRN PRN PRN Reason: COUGH Heparin Sodium (Porcine) (Heparin Injection (Vial) 5,000 Unit/Ml Vial) 0 unit IV UD PRN; Protocol PRN Reason: dose adjustment Last Admin: 08/28/20 23:56 Dose: 1,000 unit Documented by: Hydralazine HCl (Hydralazine 20 Mg/Ml Vial) 10 mg IV Q4H PRN PRN PRN Reason: SBP > 160 Sodium Chloride () 1,000 mls @ 100 mls/hr IV .Q10H ZARI Last Admin: 08/29/20 04:58 Dose: 100 mls/hr Documented by: Ceftriaxone Sodium 2 gm/ (Sodium Chloride) 50 mls @ 100 mls/hr IV Q24 ZARI Last Infusion: 08/28/20 10:20 Dose: Infused Documented by: Heparin Sodium/Dextrose () 25,000 units in 250 mls @ 10 mls/hr IV .Q25H ZARI; Protocol Last Titration: 08/29/20 06:45 Dose: 1,800 units/hr, 18 mls/hr Documented by: Remdesivir 100 mg/ Sodium (Chloride) 250 mls @ 125 mls/hr IV DAILY [facility]; Protocol Stop: 08/31/20 11:59 Last Infusion: 08/28/20 13:00 Dose: Infused Documented by: Insulin Glargine (Insulin Glargine 100 Units/Ml Pen) 25 units SC BID ZARI Last Admin: 08/28/20 21:56 Dose: 25 u Documented by: Insulin Human Lispro (Insulin Lispro 100 Unit/Ml Insuln.Pen) 0 unit SC ACHS [facility]; Protocol Last Admin: 08/28/20 21:56 Dose: 6 units Documented by: Insulin Human Lispro (Insulin Lispro 100 Unit/Ml Insuln.Pen) 10 unit SC TIDAC [facility] Last Admin: 08/28/20 15:49 Dose: 10 units Documented by: Levothyroxine Sodium (Levothyroxine 100 Mcg Tablet) 100 mcg PO DAILY [facility] Last Admin: 08/28/20 09:40 Dose: 100 mcg Documented by: Lisinopril (Lisinopril 20 Mg Tablet) 20 mg PO DAILY [facility] Last Admin: 08/28/20 09:40 Dose: 20 mg Documented by: Magnesium Hydroxide (Magnesium Hydroxide 30 Ml Udc) 30 ml PO DAILY PRN PRN PRN Reason: Constipation Melatonin (Melatonin 3 Mg Tablet) 3 mg PO QHS PRN PRN PRN Reason: INSOMNIA Last Admin: 08/26/20 20:29 Dose: 3 mg Documented by: Nitroglycerin (Nitroglycerin (Inpatient Use) 0.4 Mg Tab.Subl) 0.4 mg SUBLINGUAL Q5M PRN PRN Reason: CARDIAC/CHEST PAIN Ondansetron HCl (Ondansetron 4 Mg/2 Ml Vial) 4 mg IV Q8H PRN PRN PRN Reason: NAUSEA/VOMITING Prochlorperazine Edisylate (Prochlorperazine 10 Mg/2 Ml Vial) 5 mg IV Q4H PRN PRN PRN Reason: Breakthrough Nausea/Vomiting Psyllium Hydrophilic Mucilloid (Psyllium 1 Packet) 1 packet PO DAILY PRN PRN PRN Reason: Constipation Senna/Docusate Sodium (Senna/Docusate Sodium 1 Tablet) 2 tablet PO BID PRN PRN PRN Reason: Constipation Sodium Chloride (0.9% Saline Lock 10 Ml Syringe) 10 - 40 ml IV UD PRN PRN Reason: SALINE FLUSH Throat Lozenges (Benzocaine/Menthol 1 Lozenge) 1 lozenge MUCOUS MEM Q2H PRN PRN PRN Reason: SORE THROAT Medical Necessity - Tobacco Use Smoking Status: Never smoker Assessment/Plan All Active Problems (Last Updated 12/27/18 @ 07:[address] Ruben Sandoval, DO) Right shoulder pain (Acute) Abscess in epidural space of lumbar spine (Acute) Lumbar discitis (Acute) Psoas abscess (Acute) Bilateral pneumonia (Acute) Suspected COVID-19 virus infection (Acute) MSSA bacteremia (Acute) RECOMMENDATIONS: 1. Okay to transition from heparin to Eliquis today from my perspective. 2. Defer antimicrobial, Decadron and remdesivir management to infectious diseases. 3. Encourage incentive spirometer use and mobilize patient as tolerated. 4. Strongly recommend the use of BiPAP therapy, at a minimum, when sleeping. 5. The patient would likely qualify for auto titrating BiPAP at discharge. 6. Obtain overnight oximetry study tonight on BiPAP. IMPRESSIONS: 1. Acute hypoxemic respiratory failure Most likely multifactorial in etiology with bilateral pulmonary emboli and community-acquired pneumonia contributing. Although there was initial concern for coronavirus, rapid antigen and follow-up PCR testing was negative. In addition, SARS serology was also negative. Plan to continue Covid related treatment per ID recommendations. In the interim, the patient will be continued on supplemental oxygen to maintain saturations at or above 90%. Recommend continuing systemic anticoagulation and empiric antimicrobials. Encourage incentive spirometer use and mobilize patient as tolerated. 2. History of obstructive sleep apnea Strongly recommend use of BiPAP therapy at a minimum with naps and nightly. 3. Morbid obesity/diabetes mellitus/hypertension/hyperlipidemia/hypothyroidism Complicates care, management, recovery and prognosis. Continue home medications as indicated. This note was generated with [employer] dictation software. It may contain incorrect words, spelling, and punctuation that were not noted in checking the note before signing. Inpatient E&M: 90373 Subs Hosp L2
[2020-08-29] MEDS: Insulin Lispro 100 UNIT/ML INSULN.PEN SC ×4 (07:40→22:32)
[2020-08-29] MEDS: Insulin Lispro 100 UNIT/ML INSULN.PEN 10 UNIT SC ×3 (07:41→16:20)
[2020-08-29] MEDS: Lisinopril 20 MG Tablet PO (07:43)
[2020-08-29] MEDS: Levothyroxine 100 MCG Tablet PO (07:43)
[2020-08-29] MEDS: dexAMETHasone 4 MG Tablet 6 MG PO (07:43)
--- NOTE | 2020-08-29 07:44 | PCM.PN.HOSP ---
Patient Problems: Active and Suspected Problems (Last Updated 12/27/18 @ 07:[address] Ruben Sandoval, DO) Bilateral pneumonia (Acute) Suspected COVID-19 virus infection (Acute) Reason for Visit: Hypoxic respiratory failure Pulmonary embolism Suspected COVID-19 pneumonia Subjective: Patient seen overall clinical condition continues to improve. Patient remains on heparin drip plan is to discontinue and reinitiate Eliquis Objective: GENERAL: cooperative but dyspneic at rest HEENT: Atraumatic; EYES; Anicteric, Normal Conjunctiva NECK; supple, normal thyroid, RESPIRATORY: Diminished to auscultation CARDIOVASCULAR: Regular S1 S2, GI: soft, normoactive bowel sounds, : No Renal angle tenderness; EXTREMITIES: No edema, no clubbing, MUSCULOSKELETAL: no muscle waisting NEURO: Awake; no lateralizing signs. SKIN: No Rash PSYCH; Flat affect Vitals/I&O's: Vital Signs Temp Pulse Resp BP Pulse Ox 97.7 F L 61 21 H 145/68 H 97 08/29/20 03:00 08/29/20 03:11 08/29/20 03:11 08/29/20 03:00 08/29/20 03:11 Oxygen Flow Rate (L/min) 2 Oxygen Delivery Method Room Air Weight: 173.7 kg Body Mass Index (BMI) 55.4 Intake and Output for Last 24 Hours 08/27/20 08/28/20 08/29/20 23:59 23:59 23:59 Intake Total 3971.67 / 4211.67 4480.78 / 4480.78 1475.6 / 1475.6 Output Total 2550 / 3050 2350 / 2350 350 / 350 Balance 1421.67 / 1161.67 2130.78 / 2130.78 1125.6 / 1125.6 Microbiology Past 72 Hours 08/26/20 14:45 Blood Culture (Wb) - Other Blood Culture - Preliminary No growth in 48 hours. 08/26/20 13:30 Blood Culture (Wb) - Anticubital Right Blood Culture - Preliminary No growth in 48 hours. 08/26/20 21:00 Interface Orders Gram Stain - Final 08/26/20 21:00 Interface Orders Respiratory Culture - Preliminary Appears to be normal respiratory srinivas. Further studies to follow. 08/26/20 20:36 Mucosa - Nasopharyngeal Respiratory Panel (PCR) - Final 08/26/20 22:10 Urine, Clean Catch Legionella Antigen - Final 08/26/20 13:45 Urine, Clean Catch Streptococcus pneumoniae Antigen (M - Final 08/26/20 13:30 Mucosa - Nose SARS-CoV-2 Antigen (Rapid) - Final Laboratory Results 08/28/20 09:00: APTT 35.2 08/28/20 09:27: POC Glucose 319 H 08/28/20 12:53: POC Glucose 398 H 08/28/20 15:47: POC Glucose 305 H 08/28/20 16:27: APTT 38.1 H 08/28/20 21:53: POC Glucose 304 H 08/28/20 23:04: APTT 40.6 H 08/29/20 06:00: WBC 6.2, RBC 4.15 L, Hgb 13.0, Hct 40.7, MCV 98.1 H, MCH 31.3, MCHC 31.9 L, RDW Std Deviation 47.0 H, RDW Coeff of Kina 13.0, Plt Count 205, MPV 10.9 08/29/20 06:00: Sodium 133 L, Potassium 4.5, Chloride 101, Carbon Dioxide 25.0, Anion Gap 7, BUN 23 H, Creatinine 1.07, Estim Creat Clear Calc 74.33, Est GFR (MDRD) Af Amer 91, Est GFR (MDRD) Non-Af 75, BUN/Creatinine Ratio 21.5 H, Glucose 322 H, Calcium 8.3 L, Total Bilirubin 0.30, Direct Bilirubin 0.09, AST 67 H, ALT 100 H, Alkaline Phosphatase 108, Total Protein 6.5, Albumin 2.1 L, Globulin 4.4 H 08/29/20 06:00: APTT 42.6 H Current Medications Acetaminophen (Acetaminophen 325 Mg Tablet) 650 mg PO Q6H PRN PRN PRN Reason: Pain Score 1-10/Temp > 100.7 F Last Admin: 08/27/20 04:13 Dose: 650 mg Documented by: Al Hydroxide/Mg Hydroxide (Mag Hydrox/Al Hydrox/Simeth 30 Ml Udc) 30 ml PO Q6H PRN PRN PRN Reason: Gastric Burning Albuterol Sulfate (Albuterol 2.5 Mg/3 Ml Vial.Neb.) 2.5 mg INHALATION Q2H PRN PRN PRN Reason: Dyspnea, wheezing Calamine/Phenol (Menthol/Lanolin/Calamine/Znox 113 Gm Tube) 1 applic TOPICAL BID ZARI; Protocol Last Admin: 08/28/20 21:55 Dose: 1 applicatio Documented by: Dexamethasone (Dexamethasone 4 Mg Tablet) 6 mg PO DAILY [facility] Stop: 09/04/20 10:01 Last Admin: 08/28/20 09:41 Dose: 6 mg Documented by: Dextrose (Dextrose 50%-Water 25 Gm/50 Ml Disp.Syrin) 0 gm IV X1 PRN; Protocol PRN Reason: Hypoglycemia Glucagon (Glucagon 1 Mg/Ml Syringe) 1 mg IM .X1 PRN PRN Reason: Hypoglycemia Guaifenesin (Guaifenesin 10 Ml Udc (200mg/10ml)) 20 ml PO Q4H PRN PRN PRN Reason: COUGH Heparin Sodium (Porcine) (Heparin Injection (Vial) 5,000 Unit/Ml Vial) 0 unit IV UD PRN; Protocol PRN Reason: dose adjustment Last Admin: 08/28/20 23:56 Dose: 1,000 unit Documented by: Hydralazine HCl (Hydralazine 20 Mg/Ml Vial) 10 mg IV Q4H PRN PRN PRN Reason: SBP > 160 Sodium Chloride () 1,000 mls @ 100 mls/hr IV .Q10H [facility] Last Admin: 08/29/20 04:58 Dose: 100 mls/hr Documented by: Ceftriaxone Sodium 2 gm/ (Sodium Chloride) 50 mls @ 100 mls/hr IV Q24 [facility] Last Infusion: 08/28/20 10:20 Dose: Infused Documented by: Heparin Sodium/Dextrose () 25,000 units in 250 mls @ 10 mls/hr IV .Q25H ZARI; Protocol Last Titration: 08/29/20 06:45 Dose: 1,800 units/hr, 18 mls/hr Documented by: Remdesivir 100 mg/ Sodium (Chloride) 250 mls @ 125 mls/hr IV DAILY [facility]; Protocol Stop: 08/31/20 11:59 Last Infusion: 08/28/20 13:00 Dose: Infused Documented by: Insulin Glargine (Insulin Glargine 100 Units/Ml Pen) 25 units SC BID [facility] Last Admin: 08/28/20 21:56 Dose: 25 u Documented by: Insulin Human Lispro (Insulin Lispro 100 Unit/Ml Insuln.Pen) 0 unit SC ACHS [facility]; Protocol Last Admin: 08/28/20 21:56 Dose: 6 units Documented by: Insulin Human Lispro (Insulin Lispro 100 Unit/Ml Insuln.Pen) 10 unit SC TIDAC [facility] Last Admin: 08/28/20 15:49 Dose: 10 units Documented by: Levothyroxine Sodium (Levothyroxine 100 Mcg Tablet) 100 mcg PO DAILY [facility] Last Admin: 08/28/20 09:40 Dose: 100 mcg Documented by: Lisinopril (Lisinopril 20 Mg Tablet) 20 mg PO DAILY [facility] Last Admin: 08/28/20 09:40 Dose: 20 mg Documented by: Magnesium Hydroxide (Magnesium Hydroxide 30 Ml Udc) 30 ml PO DAILY PRN PRN PRN Reason: Constipation Melatonin (Melatonin 3 Mg Tablet) 3 mg PO QHS PRN PRN PRN Reason: INSOMNIA Last Admin: 08/26/20 20:29 Dose: 3 mg Documented by: Nitroglycerin (Nitroglycerin (Inpatient Use) 0.4 Mg Tab.Subl) 0.4 mg SUBLINGUAL Q5M PRN PRN Reason: CARDIAC/CHEST PAIN Ondansetron HCl (Ondansetron 4 Mg/2 Ml Vial) 4 mg IV Q8H PRN PRN PRN Reason: NAUSEA/VOMITING Prochlorperazine Edisylate (Prochlorperazine 10 Mg/2 Ml Vial) 5 mg IV Q4H PRN PRN PRN Reason: Breakthrough Nausea/Vomiting Psyllium Hydrophilic Mucilloid (Psyllium 1 Packet) 1 packet PO DAILY PRN PRN PRN Reason: Constipation Senna/Docusate Sodium (Senna/Docusate Sodium 1 Tablet) 2 tablet PO BID PRN PRN PRN Reason: Constipation Sodium Chloride (0.9% Saline Lock 10 Ml Syringe) 10 - 40 ml IV UD PRN PRN Reason: SALINE FLUSH Throat Lozenges (Benzocaine/Menthol 1 Lozenge) 1 lozenge MUCOUS MEM Q2H PRN PRN PRN Reason: SORE THROAT Medical Necessity - Tobacco Use Smoking Status: Never smoker Assessment/Plan All Active Problems (Last Updated 12/27/18 @ 07:[address] Ruben Sandoval, DO) Right shoulder pain (Acute) Abscess in epidural space of lumbar spine (Acute) Lumbar discitis (Acute) Psoas abscess (Acute) Bilateral pneumonia (Acute) Suspected COVID-19 virus infection (Acute) MSSA bacteremia (Acute) Patient is a 59-year-old gentleman admitted with progressive generalized weakness fever chills and headache and loose bowel movement. High suspicion for COVID-19. His COVID-19 rapid antigen test was however negative. Patient was however placed under isolation whilst the PCR test was pursued 1. Acute hypoxic respiratory failure bilateral pulmonary embolism with pulmonary infarction ?CTA of the chest demonstrated Multiple bilateral small pulmonary emboli as described. Dense infiltration in the left upper lobe as well as in the left lower lobe and focal infiltrate in the right upper lobe. Patient was started on systemic anticoagulation admitted to the COVID-19 cohort floor. COVID-19 PCR ordered) (came back negative). Consult was also placed to pulmonary medicine in addition to ID which have been consulted on admission patient has been started on Xarelto on admission discontinued started on heparin drip (there is some evidence heparin has some antiviral activity) - -08/28/2020; patient seen his overall clinical condition improving. Patient is more awake and coherent and interactive -08/29/2020; overall clinical condition continues to improve; discontinued heparin patient started on Eliquis 2. Suspected COVID-19 pneumonia Patient resented with with progressive generalized weakness fever chills and headache and loose bowel movement. His COVID-19 rapid antigen test was however negative. Patient was however placed under isolation whilst the PCR test was pursued. PCR came back negative patient however was placed on the isolation precautions given the high suspicion after discussion with ID -08/28/2020: Patient was started on remdesivir as well as Decadron by infectious disease 3. Diabetes mellitus type II -patient's oral hypoglycemics held. -Placed on long acting insulin, Accu-Cheks a.c. and at bedtime and covered with sliding scale insulin -08/28/2020; patient blood glucose levels uncontrolled adjusted his insulin regimen 4. Hypertension - Blood pressure controlled, home medications continued with dose adjustment as needed 5. Hypothyroidism - Patient is on levothyroxine home dose continued 6. Morbid obesity - With a BMI of 55.7 patient was counseled on weight reduction 7. Obstructive sleep apnea ?Patient to undergo overnight pulse ox studies. Plan is for patient to be discharged on auto titrate BiPAP on discharge Inpatient E&M: 70684 Subs Hosp L2
[2020-08-29 08:26] LABS: Bedside Glucose 331 mg/dL (70-110)
[2020-08-29] MEDS: APIXABAN 5 MG TABLET 10 MG PO ×2 (10:27→22:37)
[2020-08-29] MEDS: Menthol/Lanolin/Calamine/Znox 113 GM Tube 1 APPLIC TOPICAL ×2 (10:30→22:36)
--- NOTE | 2020-08-29 11:06 | CASEMGMT ---
RN CM Note: Dr. Abernathy is recommending a auto titrate Bipap for patient. Call to [facility] and they do have this machine. Script signed and faxed to [facility] with 2016 sleep study and overnight pulse oximetry which was completed 08/29/20. Pulmonology notes faxed to [facility]. -overnight pulse ox to be ordered (per Dr. Abernathy) for tonight on bipap and oxygen to evaluate for oxygen bleed in amount needed for home bipap. -call to [facility] to update and order placed. -attempted to call to room to update pt. will let nurse know to tell pt he needs to wear his bipap tonight for oxygen testing. Pt will also need home oxygen testing tomorrow for rest and activity oxygen needs. Elsy SWEET RN ACM
[2020-08-29 12:00] LABS: Bedside Glucose 255 mg/dL (70-110)
--- NOTE | 2020-08-29 14:15 | CASEMGMT ---
Addendum entered by Collin Mcadams 08/29/20 16:02: NIV vent script on front of chart if needed. Elsy ANGUIANO Addendum entered by Collin Mcadams 08/29/20 15:51: Call from Artur @ [facility]. Pt will need ABG tonight on oxygen, but not on Bipap to check CO2 level. Must be >55% to qualify for Bipap. Call to Dr. Luna and order placed. If pt does not qualify, physician can consider a noninvasive ventilator order. NIV script to be fax[place] from [facility] [place] [facility] [place] and place on front of chart if needed. Elsy ANGUIANO Original Note: PAOLA GUZMAN Note: call to [facility] for update on Bipap. They are working on approval by insurance, no completed yet. Updated that pt will also need home oxygen set up with anticipated dc date tomorrow and home O2 will be sent on separate script. Elsy ANGUIANO
--- NOTE | 2020-08-29 16:27 | CHAPLAIN ---
Type of Pastoral Visit ___ Initial Visit ___ Follow-up Visit ___ On-call Visit ___ General Patient Visit ___ Spiritual Assessment ___ Family Conference ___ Bereavement ___ Rapid Response ___ Code Blue _x__ Other (describe below) Pastoral Care Referral From _x__ Patient ___ Family ___ Nurse ___ Physician ___ Supervisor [place]ading ___ Structural Rigger ___ Other (describe below) Sacrament/Intervention _x__ Active listening ___ Anointing ___ Buddhism ___ Bereavement ___ Communion _x__ Irish exploration ___ ___ Life review ___ Prayer ___ Reconciliation ___ Sacrament of Sick ___ Supportive presence ___ Wedding ___ Other (describe below) Pastoral Comments follow up call into patient room who is in isolation; pt reports that first call earlier this week really made my day; pt talks of good improvement and hopes of going home tomorrow; pt reviews his symptoms of illness and have down he became at this sickness that required hospitalization; pt identifies as spiritual man who enjoys spiritual and biblical conversation and support
[2020-08-29 17:55] LABS: Bedside Glucose 314 mg/dL (70-110)
[2020-08-29 22:10] LABS: Base Excess 1 mmol/L (-2 to +2); Blood Gas Specimen Type ART; O2 Delivery Device Cannula; PO2 84 mmHG (75-100); SO2 96 % (95-99); Total Carbon Dioxide 27 mmol/L; pH 7.39 (7.35-7.45)
[2020-08-29] MEDS: 0.9% Saline Lock 10 ML Syringe IV (22:46)
[2020-08-29] MEDS: hydrALAZINE 20 MG/ML Vial 10 MG IV (23:01)
[2020-08-29 23:16] LABS: Bedside Glucose 297 mg/dL (70-110)
[2020-08-30] VITALS (9 sets, daily range): BP systolic 139–166; BP diastolic 82–95; PULSE 61–77; RESP 12–18; TEMP 36.4–36.5; O2SAT 92–98
--- NOTE | 2020-08-30 06:58 | PN_ITS ---
Patient Problems: Active and Suspected Problems (Last Updated 12/27/18 @ 07:[address] Ruben Sandoval, DO) Bilateral pneumonia (Acute) Suspected COVID-19 virus infection (Acute) Subjective: The patient was seen and examined at the bedside this morning. Events from the last 24 hours have been reviewed. The patient is currently afebrile, hemodynamically stable and maintaining appropriate oxygen saturations on BiPAP. Overnight oximetry last night was completed with a 3 L/min oxygen bleed. Objective: The patient's most recent lab work, culture data and imaging studies have all been personally reviewed. Coronavirus rapid antigen testing was negative. Follow-up coronavirus PCR was also negative. SARS serology was nonreactive. The remainder of the patient's infectious work-up was unremarkable. - Physical Exam Vitals/I&O's: Vital Signs Temp Pulse Resp BP Pulse Ox 97.5 F L 70 12 143/91 H 92 08/30/20 03:55 08/30/20 05:12 08/30/20 05:12 08/30/20 03:55 08/30/20 05:12 Oxygen Flow Rate (L/min) 2 Oxygen Delivery Method Bi-pap Weight: 381 lb 2.868 oz Body Mass Index (BMI) 55.4 Intake and Output for Last 24 Hours 08/28/20 08/29/20 08/30/20 23:59 23:59 23:59 Intake Total 4480.78 / 4480.78 4113.73 / 4113.73 0 / 0 Output Total 2350 / 2350 350 / 350 Balance 2130.78 / 2130.78 3763.73 / 3763.73 0 / 0 General: Alert, Cooperative, No apparent distress HEENT: Atraumatic, Normocephalic Oral: Moist Mucosa, No Gingival or Mucosal Lesions/ Ulcerations Neck: Supple, No Nodes, Trachea Midline Lungs: No rhonchi, No wheeze, No rales, Diminished Cardiovascular: Regular rate, Regular Rhythm Abdomen: Bowel Sounds Present, Soft, Non Tender, Obese Extremities: No clubbing, No cyanosis, No edema Skin: No breakdown Musculoskeletal: No Tenderness to Palpation of Joints or Extremities Lymphatic: No Cervical, Supraclavicular, or Inguinal Adenopathy Neurological: Cranial nerves II-XII grossly intact, Neuro grossly intact Psych/Mental Status: Alert and oriented to time, place, person, mood and affect Labs (Last 48 Hours) 08/28/20 08/28/20 08/28/20 02:18 09:00 09:27 WBC RBC Hgb Hct MCV MCH MCHC RDW Std Deviation RDW Coeff of Kina Plt Count MPV APTT 35.2 Specimen Type pH Bicarbonate Actual Total CO2 Base Excess O2 Saturation ABG pCO2 ABG pO2 O2 Delivery Device Liter Flow Sodium Potassium Chloride Carbon Dioxide Anion Gap BUN Creatinine Estim Creat Clear Calc Est GFR (MDRD) Af Amer Est GFR (MDRD) Non-Af BUN/Creatinine Ratio Glucose Calcium Total Bilirubin Direct Bilirubin AST ALT Alkaline Phosphatase Total Protein Albumin Globulin SARS Serology Nonreactive POC Glucose 319 H 08/28/20 08/28/20 08/28/20 12:53 15:47 16:27 WBC RBC Hgb Hct MCV MCH MCHC RDW Std Deviation RDW Coeff of Kina Plt Count MPV APTT 38.1 H Specimen Type pH Bicarbonate Actual Total CO2 Base Excess O2 Saturation ABG pCO2 ABG pO2 O2 Delivery Device Liter Flow Sodium Potassium Chloride Carbon Dioxide Anion Gap BUN Creatinine Estim Creat Clear Calc Est GFR (MDRD) Af Amer Est GFR (MDRD) Non-Af BUN/Creatinine Ratio Glucose Calcium Total Bilirubin Direct Bilirubin AST ALT Alkaline Phosphatase Total Protein Albumin Globulin SARS Serology POC Glucose 398 H 305 H 08/28/20 08/28/20 08/29/20 21:53 23:04 06:00 WBC 6.2 RBC 4.15 L Hgb 13.0 Hct 40.7 MCV 98.1 H MCH 31.3 MCHC 31.9 L RDW Std Deviation 47.0 H RDW Coeff of Kina 13.0 Plt Count 205 MPV 10.9 APTT 40.6 H Specimen Type pH Bicarbonate Actual Total CO2 Base Excess O2 Saturation ABG pCO2 ABG pO2 O2 Delivery Device Liter Flow Sodium Potassium Chloride Carbon Dioxide Anion Gap BUN Creatinine Estim Creat Clear Calc Est GFR (MDRD) Af Amer Est GFR (MDRD) Non-Af BUN/Creatinine Ratio Glucose Calcium Total Bilirubin Direct Bilirubin AST ALT Alkaline Phosphatase Total Protein Albumin Globulin SARS Serology POC Glucose 304 H 08/29/20 08/29/20 08/29/20 06:00 06:00 07:23 WBC RBC Hgb Hct MCV MCH MCHC RDW Std Deviation RDW Coeff of Kina Plt Count MPV APTT 42.6 H Specimen Type pH Bicarbonate Actual Total CO2 Base Excess O2 Saturation ABG pCO2 ABG pO2 O2 Delivery Device Liter Flow Sodium 133 L Potassium 4.5 Chloride 101 Carbon Dioxide 25.0 Anion Gap 7 BUN 23 H Creatinine 1.07 Estim Creat Clear Calc 74.33 Est GFR (MDRD) Af Amer 91 Est GFR (MDRD) Non-Af 75 BUN/Creatinine Ratio 21.5 H Glucose 322 H Calcium 8.3 L Total Bilirubin 0.30 Direct Bilirubin 0.09 AST 67 H ALT 100 H Alkaline Phosphatase 108 Total Protein 6.5 Albumin 2.1 L Globulin 4.4 H SARS Serology POC Glucose 331 H 08/29/20 08/29/20 08/29/20 11:41 16:15 22:06 WBC RBC Hgb Hct MCV MCH MCHC RDW Std Deviation RDW Coeff of Kina Plt Count MPV APTT Specimen Type ART pH 7.39 Bicarbonate Actual 26.0 Total CO2 27 Base Excess 1 O2 Saturation 96 ABG pCO2 43.0 ABG pO2 84 O2 Delivery Device Cannula Liter Flow 2.0 Sodium Potassium Chloride Carbon Dioxide Anion Gap BUN Creatinine Estim Creat Clear Calc Est GFR (MDRD) Af Amer Est GFR (MDRD) Non-Af BUN/Creatinine Ratio Glucose Calcium Total Bilirubin Direct Bilirubin AST ALT Alkaline Phosphatase Total Protein Albumin Globulin SARS Serology POC Glucose 255 H 314 H 08/29/20 22:29 WBC RBC Hgb Hct MCV MCH MCHC RDW Std Deviation RDW Coeff of Kina Plt Count MPV APTT Specimen Type pH Bicarbonate Actual Total CO2 Base Excess O2 Saturation ABG pCO2 ABG pO2 O2 Delivery Device Liter Flow Sodium Potassium Chloride Carbon Dioxide Anion Gap BUN Creatinine Estim Creat Clear Calc Est GFR (MDRD) Af Amer Est GFR (MDRD) Non-Af BUN/Creatinine Ratio Glucose Calcium Total Bilirubin Direct Bilirubin AST ALT Alkaline Phosphatase Total Protein Albumin Globulin SARS Serology POC Glucose 297 H Microbiology 08/26/20 21:00 Interface Orders Gram Stain - Final 08/26/20 21:00 Interface Orders Respiratory Culture - Final Mixed normal respiratory srinivas. No Streptococcus pneumoniae, beta-hemolytic Streptococcus or Staphylococcus aureus isolated. 08/26/20 14:45 Blood Culture (Wb) - Other Blood Culture - Preliminary No growth in 48 hours. 08/26/20 13:30 Blood Culture (Wb) - Anticubital Right Blood Culture - Preliminary No growth in 48 hours. Clinical Impression(s) from Imaging Studies Chest X-Ray 08/26/20 13:12 IMPRESSION: Dense infiltrate in the left midlung. Mild increased markings in the right upper lobe. Radiographic follow-up is recommended until clearing. Electronically Signed: Boston Clay, at 13:58 EST , Service support , Chest CTA 08/26/20 13:27 IMPRESSION: Multiple bilateral small pulmonary emboli as described. Dense infiltration in the left upper lobe as well as in the left lower lobe and focal infiltrate in the right upper lobe. Radiographic follow-up is recommended. Electronically Signed: Boston Nullmiltonlance, at 15:32 EST , Service support , Current Medications Acetaminophen (Acetaminophen 325 Mg Tablet) 650 mg PO Q6H PRN PRN PRN Reason: Pain Score 1-10/Temp > 100.7 F Last Admin: 08/27/20 04:13 Dose: 650 mg Documented by: Al Hydroxide/Mg Hydroxide (Mag Hydrox/Al Hydrox/Simeth 30 Ml Udc) 30 ml PO Q6H PRN PRN PRN Reason: Gastric Burning Albuterol Sulfate (Albuterol 2.5 Mg/3 Ml Vial.Neb.) 2.5 mg INHALATION Q2H PRN PRN PRN Reason: Dyspnea, wheezing Apixaban (Apixaban 5 Mg Tablet) 10 mg PO BID [facility] Last Admin: 08/29/20 22:37 Dose: 10 mg Documented by: Calamine/Phenol (Menthol/Lanolin/Calamine/Znox 113 Gm Tube) 1 applic TOPICAL BID [facility]; Protocol Last Admin: 08/29/20 22:36 Dose: 1 applicatio Documented by: Dexamethasone (Dexamethasone 4 Mg Tablet) 6 mg PO DAILY [facility] Stop: 09/04/20 10:01 Last Admin: 08/29/20 07:43 Dose: 6 mg Documented by: Dextrose (Dextrose 50%-Water 25 Gm/50 Ml Disp.Syrin) 0 gm IV X1 PRN; Protocol PRN Reason: Hypoglycemia Glucagon (Glucagon 1 Mg/Ml Syringe) 1 mg IM .X1 PRN PRN Reason: Hypoglycemia Guaifenesin (Guaifenesin 10 Ml Udc (200mg/10ml)) 20 ml PO Q4H PRN PRN PRN Reason: COUGH Heparin Sodium (Porcine) (Heparin Injection (Vial) 5,000 Unit/Ml Vial) 0 unit IV UD PRN; Protocol PRN Reason: dose adjustment Last Admin: 08/28/20 23:56 Dose: 1,000 unit Documented by: Hydralazine HCl (Hydralazine 20 Mg/Ml Vial) 10 mg IV Q4H PRN PRN PRN Reason: SBP > 160 Last Admin: 08/29/20 23:01 Dose: 10 mg Documented by: Ceftriaxone Sodium 2 gm/ (Sodium Chloride) 50 mls @ 100 mls/hr IV Q24 [facility] Last Infusion: 08/29/20 08:50 Dose: Infused Documented by: Remdesivir 100 mg/ Sodium (Chloride) 250 mls @ 125 mls/hr IV DAILY [facility]; Protocol Stop: 08/31/20 11:59 Last Infusion: 08/29/20 12:30 Dose: Infused Documented by: Insulin Glargine (Insulin Glargine 100 Units/Ml Pen) 25 units SC BID [facility] Last Admin: 08/29/20 22:33 Dose: 25 u Documented by: Insulin Human Lispro (Insulin Lispro 100 Unit/Ml Insuln.Pen) 0 unit SC ACHS [facility]; Protocol Last Admin: 08/29/20 22:32 Dose: 6 units Documented by: Insulin Human Lispro (Insulin Lispro 100 Unit/Ml Insuln.Pen) 10 unit SC TIDAC [facility] Last Admin: 08/29/20 16:20 Dose: 10 units Documented by: Levothyroxine Sodium (Levothyroxine 100 Mcg Tablet) 100 mcg PO DAILY [facility] Last Admin: 08/29/20 07:43 Dose: 100 mcg Documented by: Lisinopril (Lisinopril 20 Mg Tablet) 20 mg PO DAILY [facility] Last Admin: 08/29/20 07:43 Dose: 20 mg Documented by: Magnesium Hydroxide (Magnesium Hydroxide 30 Ml Udc) 30 ml PO DAILY PRN PRN PRN Reason: Constipation Melatonin (Melatonin 3 Mg Tablet) 3 mg PO QHS PRN PRN PRN Reason: INSOMNIA Last Admin: 08/26/20 20:29 Dose: 3 mg Documented by: Nitroglycerin (Nitroglycerin (Inpatient Use) 0.4 Mg Tab.Subl) 0.4 mg SUBLINGUAL Q5M PRN PRN Reason: CARDIAC/CHEST PAIN Ondansetron HCl (Ondansetron 4 Mg/2 Ml Vial) 4 mg IV Q8H PRN PRN PRN Reason: NAUSEA/VOMITING Prochlorperazine Edisylate (Prochlorperazine 10 Mg/2 Ml Vial) 5 mg IV Q4H PRN PRN PRN Reason: Breakthrough Nausea/Vomiting Psyllium Hydrophilic Mucilloid (Psyllium 1 Packet) 1 packet PO DAILY PRN PRN PRN Reason: Constipation Senna/Docusate Sodium (Senna/Docusate Sodium 1 Tablet) 2 tablet PO BID PRN PRN PRN Reason: Constipation Sodium Chloride (0.9% Saline Lock 10 Ml Syringe) 10 - 40 ml IV UD PRN PRN Reason: SALINE FLUSH Last Admin: 08/29/20 22:46 Dose: 10 ml Documented by: Throat Lozenges (Benzocaine/Menthol 1 Lozenge) 1 lozenge MUCOUS MEM Q2H PRN PRN PRN Reason: SORE THROAT Medical Necessity - Tobacco Use Smoking Status: Never smoker Assessment/Plan All Active Problems (Last Updated 12/27/18 @ 07:[address] Ruben Sandoval, DO) Right shoulder pain (Acute) Abscess in epidural space of lumbar spine (Acute) Lumbar discitis (Acute) Psoas abscess (Acute) Bilateral pneumonia (Acute) Suspected COVID-19 virus infection (Acute) MSSA bacteremia (Acute) RECOMMENDATIONS: 1. Continue systemic anticoagulation with Eliquis. 2. Defer antimicrobial, Decadron and remdesivir management to infectious diseases. 3. Encourage incentive spirometer use and mobilize patient as tolerated. 4. Strongly recommend the use of BiPAP therapy, at a minimum, when sleeping. 5. Recommend discharging patient on auto titrating CPAP with a 3 L/min oxygen bleed. 6. The patient should follow-up in the pulmonary medicine clinic in 2 weeks. IMPRESSIONS: 1. Acute hypoxemic respiratory failure Most likely multifactorial in etiology with bilateral pulmonary emboli and community-acquired pneumonia contributing. Although there was initial concern for coronavirus, rapid antigen and follow-up PCR testing was negative. In addition, SARS serology was also negative. Plan to continue Covid related treatment per ID recommendations. In the interim, the patient will be continued on supplemental oxygen to maintain saturations at or above 90%. Recommend continuing systemic anticoagulation and empiric antimicrobials. Encourage incentive spirometer use and mobilize patient as tolerated. 2. History of obstructive sleep apnea Strongly recommend use of BiPAP therapy at a minimum with naps and nightly. 3. Morbid obesity/diabetes mellitus/hypertension/hyperlipidemia/hypothyroidism Complicates care, management, recovery and prognosis. Continue home medications as indicated. This note was generated with Keego dictation software. It may contain incorrect words, spelling, and punctuation that were not noted in checking the note before signing. Inpatient E&M: 66257 Subs Hosp L2
[2020-08-30 06:59] LABS: Hematocrit 43.8 % (40-54); Hemoglobin 14.2 g/dL (13.0-16.5); Mean Corp Hgb Conc 32.4 g/dL (32-36); Mean Corpuscular Hgb 30.9 pg (27.0-32.0); Mean Corpuscular Volume 95.4 fL (80-94); Mean Platelet Vol. 10.7 fl (6.2-12.0); Platelet Count 366 K/mm3 (150-450); RBC Distribution Width SD 46.5 fl (35.1-43.9); Red Blood Count 4.59 M/mm3 (4.6-6.2); White Blood Count 8.3 K/mm3 (4.4-11.0)
[2020-08-30 07:27] LABS: AST(SGOT) 54 U/L (15-37); Alanine Aminotransfer ALT/SGPT 102 U/L (16-61); Albumin, Serum 2.6 g/dL (3.2-5.0); Alkaline Phosphatase 115 U/L (45-117); Anion Gap 9 (5-15); BUN 24 mg/dL (7-18); BUN/Creat Ratio 19.5 RATIO (10-20); Bilirubin, Direct 0.14 mg/dL (0.00-0.30); Calcium,Total 8.6 mg/dL (8.5-10.1); Chloride 100 mmol/L (98-107); Creatinine, Serum 1.23 mg/dL (0.70-1.30); EST Glomerular Filtration Rate 64 mL/min (>60); Est Glom Filt Rate - Afr Amer 77 mL/min (>60); Estimated Creatinine Clearance 64.66 ml/min; Globulin 3.8 g/dL (2.2-4.2); Glucose 236 mg/dL (74-106); Potassium 4.5 mmol/L (3.5-5.1); Protein, Total 6.4 g/dL (6.4-8.2); Sodium Level 134 mmol/L (136-145)
[2020-08-30 07:46] LABS: Bedside Glucose 211 mg/dL (70-110)
--- NOTE | 2020-08-30 08:25 | PN_ITS ---
Patient Problems: Active and Suspected Problems (Last Updated 12/27/18 @ 07:[address] Ruben Sandoval, DO) Bilateral pneumonia (Acute) Suspected COVID-19 virus infection (Acute) Reason for Visit: Hypoxic respiratory failure Pulmonary embolism Suspected COVID-19 pneumonia Subjective: Patient seen overall clinical condition continues to improve. Patient remains on heparin drip plan is to discontinue and reinitiate Eliquis 08/30/2020; patient seen clinical condition continues to improve. Patient reques mariely to be discharged home work on his discharge Objective: GENERAL: cooperative HEENT: Atraumatic; EYES; Anicteric, Normal Conjunctiva NECK; supple, normal thyroid, RESPIRATORY: Diminished to auscultation CARDIOVASCULAR: Regular S1 S2, GI: soft, normoactive bowel sounds, : No Renal angle tenderness; EXTREMITIES: No edema, no clubbing, MUSCULOSKELETAL: no muscle waisting NEURO: Awake; no lateralizing signs. SKIN: No Rash PSYCH; Flat affect Vitals/I&O's: Vital Signs Temp Pulse Resp BP Pulse Ox 97.5 F L 70 12 143/91 H 92 08/30/20 03:55 08/30/20 05:12 08/30/20 05:12 08/30/20 03:55 08/30/20 05:12 Oxygen Flow Rate (L/min) 2 Oxygen Delivery Method Bi-pap Weight: 172.9 kg Body Mass Index (BMI) 55.4 Intake and Output for Last 24 Hours 08/28/20 08/29/20 08/30/20 23:59 23:59 23:59 Intake Total 4480.78 / 4480.78 4113.73 / 4113.73 0 / 0 Output Total 2350 / 2350 350 / 350 Balance 2130.78 / 2130.78 3763.73 / 3763.73 0 / 0 Microbiology Past 72 Hours 08/26/20 21:00 Interface Orders Gram Stain - Final 08/26/20 21:00 Interface Orders Respiratory Culture - Final Mixed normal respiratory srinivas. No Streptococcus pneumoniae, beta-hemolytic Streptococcus or Staphylococcus aureus isolated. 08/26/20 14:45 Blood Culture (Wb) - Other Blood Culture - Preliminary No growth in 48 hours. 08/26/20 13:30 Blood Culture (Wb) - Anticubital Right Blood Culture - Preliminary No growth in 48 hours. Laboratory Results 08/29/20 07:23: POC Glucose 331 H 08/29/20 11:41: POC Glucose 255 H 08/29/20 16:15: POC Glucose 314 H 08/29/20 22:06: Specimen Type ART, pH 7.39, Bicarbonate Actual 26.0, Total CO2 27, Base Excess 1, O2 Saturation 96, ABG pCO2 43.0, ABG pO2 84, O2 Delivery Device Cannula, Liter Flow 2.0 08/29/20 22:29: POC Glucose 297 H 08/30/20 06:20: WBC 8.3, RBC 4.59 L, Hgb 14.2, Hct 43.8, MCV 95.4 H, MCH 30.9, MCHC 32.4, RDW Std Deviation 46.5 H, RDW Coeff of Kina 13.0, Plt Count 366, MPV 10.7 08/30/20 06:20: Sodium 134 L, Potassium 4.5, Chloride 100, Carbon Dioxide 25.0, Anion Gap 9, BUN 24 H, Creatinine 1.23, Estim Creat Clear Calc 64.66, Est GFR (MDRD) Af Amer 77, Est GFR (MDRD) Non-Af 64, BUN/Creatinine Ratio 19.5, Glucose 236 H, Calcium 8.6, Total Bilirubin 0.40, Direct Bilirubin 0.14, AST 54 H, ALT 102 H, Alkaline Phosphatase 115, Total Protein 6.4, Albumin 2.6 L, Globulin 3.8 08/30/20 07:38: POC Glucose 211 H Current Medications Acetaminophen (Acetaminophen 325 Mg Tablet) 650 mg PO Q6H PRN PRN PRN Reason: Pain Score 1-10/Temp > 100.7 F Last Admin: 08/27/20 04:13 Dose: 650 mg Documented by: Al Hydroxide/Mg Hydroxide (Mag Hydrox/Al Hydrox/Simeth 30 Ml Udc) 30 ml PO Q6H PRN PRN PRN Reason: Gastric Burning Albuterol Sulfate (Albuterol 2.5 Mg/3 Ml Vial.Neb.) 2.5 mg INHALATION Q2H PRN PRN PRN Reason: Dyspnea, wheezing Apixaban (Apixaban 5 Mg Tablet) 10 mg PO BID [facility] Last Admin: 08/29/20 22:37 Dose: 10 mg Documented by: Calamine/Phenol (Menthol/Lanolin/Calamine/Znox 113 Gm Tube) 1 applic TOPICAL BID [facility]; Protocol Last Admin: 08/29/20 22:36 Dose: 1 applicatio Documented by: Dexamethasone (Dexamethasone 4 Mg Tablet) 6 mg PO DAILY [facility] Stop: 09/04/20 10:01 Last Admin: 08/29/20 07:43 Dose: 6 mg Documented by: Dextrose (Dextrose 50%-Water 25 Gm/50 Ml Disp.Syrin) 0 gm IV X1 PRN; Protocol PRN Reason: Hypoglycemia Glucagon (Glucagon 1 Mg/Ml Syringe) 1 mg IM .X1 PRN PRN Reason: Hypoglycemia Guaifenesin (Guaifenesin 10 Ml Udc (200mg/10ml)) 20 ml PO Q4H PRN PRN PRN Reason: COUGH Heparin Sodium (Porcine) (Heparin Injection (Vial) 5,000 Unit/Ml Vial) 0 unit IV UD PRN; Protocol PRN Reason: dose adjustment Last Admin: 08/28/20 23:56 Dose: 1,000 unit Documented by: Hydralazine HCl (Hydralazine 20 Mg/Ml Vial) 10 mg IV Q4H PRN PRN PRN Reason: SBP > 160 Last Admin: 08/29/20 23:01 Dose: 10 mg Documented by: Ceftriaxone Sodium 2 gm/ (Sodium Chloride) 50 mls @ 100 mls/hr IV Q24 [facility] Last Infusion: 08/29/20 08:50 Dose: Infused Documented by: Remdesivir 100 mg/ Sodium (Chloride) 250 mls @ 125 mls/hr IV DAILY [facility]; Protocol Stop: 08/31/20 11:59 Last Infusion: 08/29/20 12:30 Dose: Infused Documented by: Insulin Glargine (Insulin Glargine 100 Units/Ml Pen) 25 units SC BID [facility] Last Admin: 08/29/20 22:33 Dose: 25 u Documented by: Insulin Human Lispro (Insulin Lispro 100 Unit/Ml Insuln.Pen) 0 unit SC ACHS [facility]; Protocol Last Admin: 08/29/20 22:32 Dose: 6 units Documented by: Insulin Human Lispro (Insulin Lispro 100 Unit/Ml Insuln.Pen) 10 unit SC TIDAC [facility] Last Admin: 08/29/20 16:20 Dose: 10 units Documented by: Levothyroxine Sodium (Levothyroxine 100 Mcg Tablet) 100 mcg PO DAILY [facility] Last Admin: 08/29/20 07:43 Dose: 100 mcg Documented by: Lisinopril (Lisinopril 20 Mg Tablet) 20 mg PO DAILY [facility] Last Admin: 08/29/20 07:43 Dose: 20 mg Documented by: Magnesium Hydroxide (Magnesium Hydroxide 30 Ml Udc) 30 ml PO DAILY PRN PRN PRN Reason: Constipation Melatonin (Melatonin 3 Mg Tablet) 3 mg PO QHS PRN PRN PRN Reason: INSOMNIA Last Admin: 08/26/20 20:29 Dose: 3 mg Documented by: Nitroglycerin (Nitroglycerin (Inpatient Use) 0.4 Mg Tab.Subl) 0.4 mg SUBLINGUAL Q5M PRN PRN Reason: CARDIAC/CHEST PAIN Ondansetron HCl (Ondansetron 4 Mg/2 Ml Vial) 4 mg IV Q8H PRN PRN PRN Reason: NAUSEA/VOMITING Prochlorperazine Edisylate (Prochlorperazine 10 Mg/2 Ml Vial) 5 mg IV Q4H PRN PRN PRN Reason: Breakthrough Nausea/Vomiting Psyllium Hydrophilic Mucilloid (Psyllium 1 Packet) 1 packet PO DAILY PRN PRN PRN Reason: Constipation Senna/Docusate Sodium (Senna/Docusate Sodium 1 Tablet) 2 tablet PO BID PRN PRN PRN Reason: Constipation Sodium Chloride (0.9% Saline Lock 10 Ml Syringe) 10 - 40 ml IV UD PRN PRN Reason: SALINE FLUSH Last Admin: 08/29/20 22:46 Dose: 10 ml Documented by: Throat Lozenges (Benzocaine/Menthol 1 Lozenge) 1 lozenge MUCOUS MEM Q2H PRN PRN PRN Reason: SORE THROAT STROKE Vital Signs/Narrative: Vital Signs Pulse Resp Pulse Ox 08/30/20 05:12 70 12 92 Medical Necessity - Tobacco Use Smoking Status: Never smoker Assessment/Plan All Active Problems (Last Updated 12/27/18 @ 07:[address] Ruben Sandoval, DO) Right shoulder pain (Acute) Abscess in epidural space of lumbar spine (Acute) Lumbar discitis (Acute) Psoas abscess (Acute) Bilateral pneumonia (Acute) Suspected COVID-19 virus infection (Acute) MSSA bacteremia (Acute) Patient is a 59-year-old gentleman admitted with progressive generalized weakness fever chills and headache and loose bowel movement. High suspicion for COVID-19. His COVID-19 rapid antigen test was however negative. Patient was however placed under isolation whilst the PCR test was pursued 1. Acute hypoxic respiratory failure bilateral pulmonary embolism with pulmonary infarction ?CTA of the chest demonstrated Multiple bilateral small pulmonary emboli as described. Dense infiltration in the left upper lobe as well as in the left lower lobe and focal infiltrate in the right upper lobe. Patient was started on systemic anticoagulation admitted to the COVID-19 cohort floor. COVID-19 PCR ordered) (came back negative). Consult was also placed to pulmonary medicine in addition to ID which have been consulted on admission patient has been started on Xarelto on admission discontinued started on heparin drip (there is some evidence hepa rin has some antiviral activity) - -08/28/2020; patient seen his overall clinical condition improving. Patient is more awake and coherent and interactive -08/29/2020; overall clinical condition continues to improve; discontinued heparin patient started on Eliquis 2. Suspected COVID-19 pneumonia Patient resented with with progressive generalized weakness fever chills and headache and loose bowel movement. His COVID-19 rapid antigen test was however negative. Patient was however placed under isolation whilst the PCR test was pursued. PCR came back negative patient however was placed on the isolation precautions given the high suspicion after discussion with ID -08/28/2020: Patient was started on remdesivir as well as Decadron by infectious disease 3. Diabetes mellitus type II -patient's oral hypoglycemics held. -Placed on long acting insulin, Accu-Cheks a.c. and at bedtime and covered with sliding scale insulin -08/28/2020; patient blood glucose levels uncontrolled adjusted his insulin regimen 4. Hypertension - Blood pressure controlled, home medications continued with dose adjustment as needed 5. Hypothyroidism - Patient is on levothyroxine home dose continued 6. Morbid obesity - With a BMI of 55.7 patient was counseled on weight reduction 7. Obstructive sleep apnea ?Patient to undergo overnight pulse ox studies. Plan is for patient to be discharged on auto titrate BiPAP on discharge Inpatient E&M: [id number] [facility] Hosp L2
[2020-08-30] MEDS: Levothyroxine 100 MCG Tablet PO (09:24)
[2020-08-30] MEDS: dexAMETHasone 4 MG Tablet 6 MG PO (09:24)
[2020-08-30] MEDS: APIXABAN 5 MG TABLET 10 MG PO (09:24)
[2020-08-30] MEDS: 0.9% Saline Lock 10 ML Syringe IV (09:24)
[2020-08-30] MEDS: Lisinopril 20 MG Tablet PO (09:24)
[2020-08-30] MEDS: Insulin Lispro 100 UNIT/ML INSULN.PEN SC (09:26)
[2020-08-30] MEDS: Insulin Lispro 100 UNIT/ML INSULN.PEN 10 UNIT SC (09:26)
[2020-08-30] MEDS: Menthol/Lanolin/Calamine/Znox 113 GM Tube 1 APPLIC TOPICAL (09:30)
--- NOTE | 2020-08-30 10:04 | CASEMGMT ---
Addendum entered by Spenser Espinosa 08/30/20 12:40: Home O2 testing has been done and pt does not qualify for additional O2 (except @ 3L/M bleed-in through CPAP). Script for CPAP w/O2 bleed-in @ 3 L/M faxed to [facility] at this time as well as continuous overnight O2 oxygen trend from last night. Addendum entered by Spenser Espinosa 08/30/20 11:24: Eliquis has been e-scribed to [facility] pharmacy and pt has activated Eliquis $10 co-pay card. Call placed to [facility] and spoke w/pharmacist, Dez, and card applied. Pt's co-pay for 1st 30 days is $10. Refills will be $10 as well. Call placed to pt and he was made aware. Pt made aware that he does qualify for another CPAP machine and that he will need to bleed-in O2 @ 3 L/M @ HS. He was also made aware that ambulatory home testing will be completed prior to discharge and O2 will be set up for day-time use as well if he qualifies. [facility] to contact him to set up delivery of CPAP and O2. Addendum entered by Spenser Espinosa 08/30/20 10:15: Script from Dr Abernathy is for auto-titrating CPAP w/O2 @ 3 l/m bleed-in Original Note: PAOLA GUZMAN NOTE: ABG CO2 level was 43. Pt does not qualify for BIPAP, as per [facility], CO2 would need to be >55%. Dr Abernathy made aware and PAOLA GUZMAN inquired about NIV for pt. Dr Abernathy states does not wish to order NIV for pt. Call placed to [facility] and she was made aware of CO2 level and she confirms pt does not qualify for BIPAP. Artur made aware pt woods not have CPAP machine either, as he returned it to them years ago. She states pt does qualify for another CPAP machine. Dr Abernathy made aware and gave order for CPAP w/O2 @ 3 L/M bleed-in. Pt to have ambulatory home O2 testing done prior to d/c. CM will watch for additional O2 orders that may be needed. Pt will discharge home on Eliquis. Call placed to pt's room and he was made aware of $10 co-pay card and informed he would need to activate the card prior to use. Card given to RN to give to pt when she goes in pt's room next. Johnnie MARTINEZN RN CM
--- NOTE | 2020-08-30 11:10 | DCINST_ITS ---
- Discharge Diagnoses Current Active Problems: Current Active and Chronic Problems (Last Updated 12/27/18 @ 07:[address] Ruben Sandoval, DO) Obstructive sleep apnea (Chronic) Hyperlipidemia (Chronic) Hypothyroidism (Chronic) Bilateral pneumonia (Acute) Suspected COVID-19 virus infection (Acute) Morbid obesity (Chronic) Diabetes mellitus, type II (Chronic) Chronic back pain (Chronic) Hypertension (Chronic) You will use the following diet at home:: Calorie/Carbohydrate Controlled (specify 1200, 1400, etc) - 1800 Your food should be the consistency of: Regular Allergies/Adverse Reactions: Allergies No Known Allergies Allergy (Verified 08/26/20 12:33) Medications to take at Discharge Lisinopril [Zestril] 20 mg PO DAILY #30 tab 05/05/19 metFORMIN HCl [Glucophage] 500 mg PO BIDCM #60 tab 05/05/19 Levothyroxine [Synthroid] 100 mcg PO DAILY@0600 06/03/20 Acetaminophen [Tylenol Tablet] 650 mg PO Q6H PRN PRN tablet 08/30/20 Apixaban [Eliquis] 5 mg PO BID #120 tab 08/30/20 Cefdinir [Omnicef [equiv]] 300 mg PO Q12H #14 cap 08/30/20 Dexamethasone [Decadron] 6 mg PO DAILY #5 tab 08/30/20 The following prescriptions were given: Dexamethasone [Decadron] 6 mg PO DAILY #5 tab Transmission Status: Pending to [id number] Apixaban [Eliquis] 5 mg PO BID #120 tab Transmission Status: Pending to [id number] Cefdinir [Omnicef [equiv]] 300 mg PO Q12H #14 cap Transmission Status: Pending to [facility] #[id number] Primary Care Physician: Enrique Otero Chi, MD [Primary Care Provider] - Please follow up with your Primary Care Physician in: in 5-7 days Test Results: Test results from this visit will be discussed in further detail at your follow- up appointment, if applicable. Proposed Discharge Date: 08/30/20
--- NOTE | 2020-08-30 11:13 | DS.PCM_ITS ---
Discharge Date and Diagnosis - Problem List Patient Problems: Active and Suspected Problems (Last Updated 12/27/18 @ 07:[address] Ruben Sandoval DO) Bilateral pneumonia (Acute) Suspected COVID-19 virus infection (Acute) Date of Admission: 08/26/20 Date of Discharge: 08/30/20 - Primary Discharge Diagnosis Acute Problems: Active Problems (Last Updated 12/27/18 @ 07:[address] Ruben Sandoval DO) Bilateral pneumonia (Acute) Suspected COVID-19 virus infection (Acute) - Secondary Discharge Diagnosis Chronic Problems: Chronic Problems (Last Updated 12/27/18 @ 07:[address] Ruben Sandoval DO) Obstructive sleep apnea (Chronic) Hyperlipidemia (Chronic) Hypothyroidism (Chronic) Psoas tendinitis (Chronic) Morbid obesity (Chronic) Headache (Chronic) Osteoarthritis (Chronic) Morbid obesity (Chronic) Diabetes mellitus, type II (Chronic) History of left psoas muscle injury (Chronic) Chronic back pain (Chronic) Muscle spasm (Chronic) Hypertension (Chronic) Muscle tear (Chronic) Hospital Course and Treatment Imaging Results: Laboratory Tests 08/30/20 08/30/20 08/30/20 Range/Units 07:38 06:20 06:20 WBC 8.3 (4.4-11.0) K/mm3 RBC 4.59 L (4.6-6.2) M/mm3 Hgb 14.2 (13.0-16.5) g/dL Hct 43.8 (40-54) % MCV 95.4 H (80-94) fL MCH 30.9 (27.0-32.0) pg MCHC 32.4 (32-36) g/dL RDW Std Deviation 46.5 H (35.1-43.9) fl RDW Coeff of Kina 13.0 (11.6-14.6) % Plt Count 366 (150-450) K/mm3 MPV 10.7 (6.2-12.0) fl Immature Gran % (Auto) (0.0-0.9) % Neut % (Auto) (47-70) % Lymph % (Auto) (19-41) % [place] % (Auto) (0-10) % Eos % (Auto) (0-5) % Baso % (Auto) (0-1) % Absolute Neuts (auto) (2.0-7.7) X10^3/uL Absolute Lymphs (auto) (0.83-4.51) X10^3/uL Nucleated RBC % (0-5) % Differential Comment PT (11.7-14.9) SECONDS INR APTT (24.1-36.2) Seconds D-Dimer Quant (PE/DVT) (0.27-0.49) FEU/ug/m Specimen Type Sample Site pH (7.35-7.45) Bicarbonate Actual (22-26) mmol/L Total CO2 mmol/L Base Excess (-2 to +2) mmol/L O2 Saturation (95-99) % ABG pCO2 (35-45) mmHg ABG pO2 (75-100) mmHG Jose Luis Test O2 Delivery Device Liter Flow /min Sodium 134 L (136-145) mmol/L Potassium 4.5 (3.5-5.1) mmol/L Chloride 100 (98-107) mmol/L Carbon Dioxide 25.0 (21.0-32.0) mmol/L Anion Gap 9 (5-15) BUN 24 H (7-18) mg/dL Creatinine 1.23 (0.70-1.30) mg/dL Estim Creat Clear Calc 64.66 ml/min Est GFR (MDRD) Af Amer 77 (>60) mL/min Est GFR (MDRD) Non-Af 64 (>60) mL/min BUN/Creatinine Ratio 19.5 (10-20) RATIO Glucose 236 H (74-106) mg/dL Hemoglobin A1c (3.8-5.6) % Lactic Acid (0.4-1.9) mmol/L Calcium 8.6 (8.5-10.1) mg/dL Magnesium (1.6-2.6) mg/dL Ferritin (26-388) ng/mL Total Bilirubin 0.40 (0.20-1.00) mg/dL Direct Bilirubin 0.14 (0.00-0.30) mg/dL AST 54 H (15-37) U/L ALT 102 H (16-61) U/L Alkaline Phosphatase 115 (45-117) U/L Lactate Dehydrogenase (87-241) U/L Troponin I (<0.045) ng/mL C-React Prot Ext Range (0.0-3.0) mg/L Total Protein 6.4 (6.4-8.2) g/dL Albumin 2.6 L (3.2-5.0) g/dL Globulin 3.8 (2.2-4.2) g/dL Albumin/Globulin Ratio (0.9-2.4) RATIO Procalcitonin (0.00-0.09) ng/mL COVID-19 ([facility]) (Not Detect) SARS Serology (Nonreactive) POC Glucose 211 H (70-110) mg/dL 08/29/20 08/29/20 08/29/20 Range/Units 22:29 22:06 16:15 WBC (4.4-11.0) K/mm3 RBC (4.6-6.2) M/mm3 Hgb (13.0-16.5) g/dL Hct (40-54) % MCV (80-94) fL MCH (27.0-32.0) pg MCHC (32-36) g/dL RDW Std Deviation (35.1-43.9) fl RDW Coeff of Kina (11.6-14.6) % Plt Count (150-450) K/mm3 MPV (6.2-12.0) fl Immature Gran % (Auto) (0.0-0.9) % Neut % (Auto) (47-70) % Lymph % (Auto) (19-41) % [place] % (Auto) (0-10) % Eos % (Auto) (0-5) % Baso % (Auto) (0-1) % Absolute Neuts (auto) (2.0-7.7) X10^3/uL Absolute Lymphs (auto) (0.83-4.51) X10^3/uL Nucleated RBC % (0-5) % Differential Comment PT (11.7-14.9) SECONDS INR APTT (24.1-36.2) Seconds D-Dimer Quant (PE/DVT) (0.27-0.49) FEU/ug/m Specimen Type ART Sample Site pH 7.39 (7.35-7.45) Bicarbonate Actual 26.0 (22-26) mmol/L Total CO2 27 mmol/L Base Excess 1 (-2 to +2) mmol/L O2 Saturation 96 (95-99) % ABG pCO2 43.0 (35-45) mmHg ABG pO2 84 (75-100) mmHG Jose Luis Test O2 Delivery Device Cannula Liter Flow 2.0 /min Sodium (136-145) mmol/L Potassium (3.5-5.1) mmol/L Chloride (98-107) mmol/L Carbon Dioxide (21.0-32.0) mmol/L Anion Gap (5-15) BUN (7-18) mg/dL Creatinine (0.70-1.30) mg/dL Estim Creat Clear Calc ml/min Est GFR (MDRD) Af Amer (>60) mL/min Est GFR (MDRD) Non-Af (>60) mL/min BUN/Creatinine Ratio (10-20) RATIO Glucose (74-106) mg/dL Hemoglobin A1c (3.8-5.6) % Lactic Acid (0.4-1.9) mmol/L Calcium (8.5-10.1) mg/dL Magnesium (1.6-2.6) mg/dL Ferritin (26-388) ng/mL Total Bilirubin (0.20-1.00) mg/dL Direct Bilirubin (0.00-0.30) mg/dL AST (15-37) U/L ALT (16-61) U/L Alkaline Phosphatase (45-117) U/L Lactate Dehydrogenase (87-241) U/L Troponin I (<0.045) ng/mL C-React Prot Ext Range (0.0-3.0) mg/L Total Protein (6.4-8.2) g/dL Albumin (3.2-5.0) g/dL Globulin (2.2-4.2) g/dL Albumin/Globulin Ratio (0.9-2.4) RATIO Procalcitonin (0.00-0.09) ng/mL COVID-19 ([facility]) (Not Detect) SARS Serology (Nonreactive) POC Glucose 297 H 314 H (70-110) mg/dL 08/29/20 08/29/20 08/29/20 Range/Units 11:41 07:23 06:00 WBC (4.4-11.0) K/mm3 RBC (4.6-6.2) M/mm3 Hgb (13.0-16.5) g/dL Hct (40-54) % MCV (80-94) fL MCH (27.0-32.0) pg MCHC (32-36) g/dL RDW Std Deviation (35.1-43.9) fl RDW Coeff of Kina (11.6-14.6) % Plt Count (150-450) K/mm3 MPV (6.2-12.0) fl Immature Gran % (Auto) (0.0-0.9) % Neut % (Auto) (47-70) % Lymph % (Auto) (19-41) % [place] % (Auto) (0-10) % Eos % (Auto) (0-5) % Baso % (Auto) (0-1) % Absolute Neuts (auto) (2.0-7.7) X10^3/uL Absolute Lymphs (auto) (0.83-4.51) X10^3/uL Nucleated RBC % (0-5) % Differential Comment PT (11.7-14.9) SECONDS INR APTT 42.6 H (24.1-36.2) Seconds D-Dimer Quant (PE/DVT) (0.27-0.49) FEU/ug/m Specimen Type Sample Site pH (7.35-7.45) Bicarbonate Actual (22-26) mmol/L Total CO2 mmol/L Base Excess (-2 to +2) mmol/L O2 Saturation (95-99) % ABG pCO2 (35-45) mmHg ABG pO2 (75-100) mmHG Jose Luis Test O2 Delivery Device Liter Flow /min Sodium (136-145) mmol/L Potassium (3.5-5.1) mmol/L Chloride (98-107) mmol/L Carbon Dioxide (21.0-32.0) mmol/L Anion Gap (5-15) BUN (7-18) mg/dL Creatinine (0.70-1.30) mg/dL Estim Creat Clear Calc ml/min Est GFR (MDRD) Af Amer (>60) mL/min Est GFR (MDRD) Non-Af (>60) mL/min BUN/Creatinine Ratio (10-20) RATIO Glucose (74-106) mg/dL Hemoglobin A1c (3.8-5.6) % Lactic Acid (0.4-1.9) mmol/L Calcium (8.5-10.1) mg/dL Magnesium (1.6-2.6) mg/dL Ferritin (26-388) ng/mL Total Bilirubin (0.20-1.00) mg/dL Direct Bilirubin (0.00-0.30) mg/dL AST (15-37) U/L ALT (16-61) U/L Alkaline Phosphatase (45-117) U/L Lactate Dehydrogenase (87-241) U/L Troponin I (<0.045) ng/mL C-React Prot Ext Range (0.0-3.0) mg/L Total Protein (6.4-8.2) g/dL Albumin (3.2-5.0) g/dL Globulin (2.2-4.2) g/dL Albumin/Globulin Ratio (0.9-2.4) RATIO Procalcitonin (0.00-0.09) ng/mL COVID-19 ([facility]) (Not Detect) SARS Serology (Nonreactive) POC Glucose 255 H 331 H (70-110) mg/dL 08/29/20 08/29/20 08/28/20 Range/Units 06:00 06:00 23:04 WBC 6.2 (4.4-11.0) K/mm3 RBC 4.15 L (4.6-6.2) M/mm3 Hgb 13.0 (13.0-16.5) g/dL Hct 40.7 (40-54) % MCV 98.1 H (80-94) fL MCH 31.3 (27.0-32.0) pg MCHC 31.9 L (32-36) g/dL RDW Std Deviation 47.0 H (35.1-43.9) fl RDW Coeff of Kina 13.0 (11.6-14.6) % Plt Count 205 (150-450) K/mm3 MPV 10.9 (6.2-12.0) fl Immature Gran % (Auto) (0.0-0.9) % Neut % (Auto) (47-70) % Lymph % (Auto) (19-41) % [place] % (Auto) (0-10) % Eos % (Auto) (0-5) % Baso % (Auto) (0-1) % Absolute Neuts (auto) (2.0-7.7) X10^3/uL Absolute Lymphs (auto) (0.83-4.51) X10^3/uL Nucleated RBC % (0-5) % Differential Comment PT (11.7-14.9) SECONDS INR APTT 40.6 H (24.1-36.2) Seconds D-Dimer Quant (PE/DVT) (0.27-0.49) FEU/ug/m Specimen Type Sample Site pH (7.35-7.45) Bicarbonate Actual (22-26) mmol/L Total CO2 mmol/L Base Excess (-2 to +2) mmol/L O2 Saturation (95-99) % ABG pCO2 (35-45) mmHg ABG pO2 (75-100) mmHG Jose Luis Test O2 Delivery Device Liter Flow /min Sodium 133 L (136-145) mmol/L Potassium 4.5 (3.5-5.1) mmol/L Chloride 101 (98-107) mmol/L Carbon Dioxide 25.0 (21.0-32.0) mmol/L Anion Gap 7 (5-15) BUN 23 H (7-18) mg/dL Creatinine 1.07 (0.70-1.30) mg/dL Estim Creat Clear Calc 74.33 ml/min Est GFR (MDRD) Af Amer 91 (>60) mL/min Est GFR (MDRD) Non-Af 75 (>60) mL/min BUN/Creatinine Ratio 21.5 H (10-20) RATIO Glucose 322 H (74-106) mg/dL Hemoglobin A1c (3.8-5.6) % Lactic Acid (0.4-1.9) mmol/L Calcium 8.3 L (8.5-10.1) mg/dL Magnesium (1.6-2.6) mg/dL Ferritin (26-388) ng/mL Total Bilirubin 0.30 (0.20-1.00) mg/dL Direct Bilirubin 0.09 (0.00-0.30) mg/dL AST 67 H (15-37) U/L ALT 100 H (16-61) U/L Alkaline Phosphatase 108 (45-117) U/L Lactate Dehydrogenase (87-241) U/L Troponin I (<0.045) ng/mL C-React Prot Ext Range (0.0-3.0) mg/L Total Protein 6.5 (6.4-8.2) g/dL Albumin 2.1 L (3.2-5.0) g/dL Globulin 4.4 H (2.2-4.2) g/dL Albumin/Globulin Ratio (0.9-2.4) RATIO Procalcitonin (0.00-0.09) ng/mL COVID-19 ([facility]) (Not Detect) SARS Serology (Nonreactive) POC Glucose (70-110) mg/dL 08/28/20 08/28/20 08/28/20 Range/Units 21:53 16:27 15:47 WBC (4.4-11.0) K/mm3 RBC (4.6-6.2) M/mm3 Hgb (13.0-16.5) g/dL Hct (40-54) % MCV (80-94) fL MCH (27.0-32.0) pg MCHC (32-36) g/dL RDW Std Deviation (35.1-43.9) fl RDW Coeff of Kina (11.6-14.6) % Plt Count (150-450) K/mm3 MPV (6.2-12.0) fl Immature Gran % (Auto) (0.0-0.9) % Neut % (Auto) (47-70) % Lymph % (Auto) (19-41) % [place] % (Auto) (0-10) % Eos % (Auto) (0-5) % Baso % (Auto) (0-1) % Absolute Neuts (auto) (2.0-7.7) X10^3/uL Absolute Lymphs (auto) (0.83-4.51) X10^3/uL Nucleated RBC % (0-5) % Differential Comment PT (11.7-14.9) SECONDS INR APTT 38.1 H (24.1-36.2) Seconds D-Dimer Quant (PE/DVT) (0.27-0.49) FEU/ug/m Specimen Type Sample Site pH (7.35-7.45) Bicarbonate Actual (22-26) mmol/L Total CO2 mmol/L Base Excess (-2 to +2) mmol/L O2 Saturation (95-99) % ABG pCO2 (35-45) mmHg ABG pO2 (75-100) mmHG Jose Luis Test O2 Delivery Device Liter Flow /min Sodium (136-145) mmol/L Potassium (3.5-5.1) mmol/L Chloride (98-107) mmol/L Carbon Dioxide (21.0-32.0) mmol/L Anion Gap (5-15) BUN (7-18) mg/dL Creatinine (0.70-1.30) mg/dL Estim Creat Clear Calc ml/min Est GFR (MDRD) Af Amer (>60) mL/min Est GFR (MDRD) Non-Af (>60) mL/min BUN/Creatinine Ratio (10-20) RATIO Glucose (74-106) mg/dL Hemoglobin A1c (3.8-5.6) % Lactic Acid (0.4-1.9) mmol/L Calcium (8.5-10.1) mg/dL Magnesium (1.6-2.6) mg/dL Ferritin (26-388) ng/mL Total Bilirubin (0.20-1.00) mg/dL Direct Bilirubin (0.00-0.30) mg/dL AST (15-37) U/L ALT (16-61) U/L Alkaline Phosphatase (45-117) U/L Lactate Dehydrogenase (87-241) U/L Troponin I (<0.045) ng/mL C-React Prot Ext Range (0.0-3.0) mg/L Total Protein (6.4-8.2) g/dL Albumin (3.2-5.0) g/dL Globulin (2.2-4.2) g/dL Albumin/Globulin Ratio (0.9-2.4) RATIO Procalcitonin (0.00-0.09) ng/mL COVID-19 ([facility]) (Not Detect) SARS Serology (Nonreactive) POC Glucose 304 H 305 H (70-110) mg/dL 08/28/20 08/28/20 08/28/20 Range/Units 12:53 09:27 09:00 WBC (4.4-11.0) K/mm3 RBC (4.6-6.2) M/mm3 Hgb (13.0-16.5) g/dL Hct (40-54) % MCV (80-94) fL MCH (27.0-32.0) pg MCHC (32-36) g/dL RDW Std Deviation (35.1-43.9) fl RDW Coeff of Kina (11.6-14.6) % Plt Count (150-450) K/mm3 MPV (6.2-12.0) fl Immature Gran % (Auto) (0.0-0.9) % Neut % (Auto) (47-70) % Lymph % (Auto) (19-41) % [place] % (Auto) (0-10) % Eos % (Auto) (0-5) % Baso % (Auto) (0-1) % Absolute Neuts (auto) (2.0-7.7) X10^3/uL Absolute Lymphs (auto) (0.83-4.51) X10^3/uL Nucleated RBC % (0-5) % Differential Comment PT (11.7-14.9) SECONDS INR APTT 35.2 (24.1-36.2) Seconds D-Dimer Quant (PE/DVT) (0.27-0.49) FEU/ug/m Specimen Type Sample Site pH (7.35-7.45) Bicarbonate Actual (22-26) mmol/L Total CO2 mmol/L Base Excess (-2 to +2) mmol/L O2 Saturation (95-99) % ABG pCO2 (35-45) mmHg ABG pO2 (75-100) mmHG Jose Luis Test O2 Delivery Device Liter Flow /min Sodium (136-145) mmol/L Potassium (3.5-5.1) mmol/L Chloride (98-107) mmol/L Carbon Dioxide (21.0-32.0) mmol/L Anion Gap (5-15) BUN (7-18) mg/dL Creatinine (0.70-1.30) mg/dL Estim Creat Clear Calc ml/min Est GFR (MDRD) Af Amer (>60) mL/min Est GFR (MDRD) Non-Af (>60) mL/min BUN/Creatinine Ratio (10-20) RATIO Glucose (74-106) mg/dL Hemoglobin A1c (3.8-5.6) % Lactic Acid (0.4-1.9) mmol/L Calcium (8.5-10.1) mg/dL Magnesium (1.6-2.6) mg/dL Ferritin (26-388) ng/mL Total Bilirubin (0.20-1.00) mg/dL Direct Bilirubin (0.00-0.30) mg/dL AST (15-37) U/L ALT (16-61) U/L Alkaline Phosphatase (45-117) U/L Lactate Dehydrogenase (87-241) U/L Troponin I (<0.045) ng/mL C-React Prot Ext Range (0.0-3.0) mg/L Total Protein (6.4-8.2) g/dL Albumin (3.2-5.0) g/dL Globulin (2.2-4.2) g/dL Albumin/Globulin Ratio (0.9-2.4) RATIO Procalcitonin (0.00-0.09) ng/mL COVID-19 ([facility]) (Not Detect) SARS Serology (Nonreactive) POC Glucose 398 H 319 H (70-110) mg/dL 08/28/20 08/28/20 08/28/20 Range/Units 02:18 02:18 02:18 WBC (4.4-11.0) K/mm3 RBC (4.6-6.2) M/mm3 Hgb (13.0-16.5) g/dL Hct (40-54) % MCV (80-94) fL MCH (27.0-32.0) pg MCHC (32-36) g/dL RDW Std Deviation (35.1-43.9) fl RDW Coeff of Kina (11.6-14.6) % Plt Count (150-450) K/mm3 MPV (6.2-12.0) fl Immature Gran % (Auto) (0.0-0.9) % Neut % (Auto) (47-70) % Lymph % (Auto) (19-41) % [place] % (Auto) (0-10) % Eos % (Auto) (0-5) % Baso % (Auto) (0-1) % Absolute Neuts (auto) (2.0-7.7) X10^3/uL Absolute Lymphs (auto) (0.83-4.51) X10^3/uL Nucleated RBC % (0-5) % Differential Comment PT (11.7-14.9) SECONDS INR APTT 46.0 H (24.1-36.2) Seconds D-Dimer Quant (PE/DVT) (0.27-0.49) FEU/ug/m Specimen Type Sample Site pH (7.35-7.45) Bicarbonate Actual (22-26) mmol/L Total CO2 mmol/L Base Excess (-2 to +2) mmol/L O2 Saturation (95-99) % ABG pCO2 (35-45) mmHg ABG pO2 (75-100) mmHG Jose Luis Test O2 Delivery Device Liter Flow /min Sodium 132 L (136-145) mmol/L Potassium 4.6 (3.5-5.1) mmol/L Chloride 97 L (98-107) mmol/L Carbon Dioxide 28.0 (21.0-32.0) mmol/L Anion Gap 7 (5-15) BUN 19 H (7-18) mg/dL Creatinine 1.04 (0.70-1.30) mg/dL Estim Creat Clear Calc 76.48 ml/min Est GFR (MDRD) Af Amer 94 (>60) mL/min Est GFR (MDRD) Non-Af 77 (>60) mL/min BUN/Creatinine Ratio 18.3 (10-20) RATIO Glucose 336 H (74-106) mg/dL Hemoglobin A1c (3.8-5.6) % Lactic Acid (0.4-1.9) mmol/L Calcium 8.2 L (8.5-10.1) mg/dL Magnesium 2.5 (1.6-2.6) mg/dL Ferritin (26-388) ng/mL Total Bilirubin 0.30 (0.20-1.00) mg/dL Direct Bilirubin 0.14 (0.00-0.30) mg/dL AST 106 H (15-37) U/L ALT 98 H (16-61) U/L Alkaline Phosphatase 117 (45-117) U/L Lactate Dehydrogenase (87-241) U/L Troponin I (<0.045) ng/mL C-React Prot Ext Range (0.0-3.0) mg/L Total Protein 6.0 L (6.4-8.2) g/dL Albumin 2.2 L (3.2-5.0) g/dL Globulin 3.8 (2.2-4.2) g/dL Albumin/Globulin Ratio (0.9-2.4) RATIO Procalcitonin (0.00-0.09) ng/mL COVID-19 ([facility]) (Not Detect) SARS Serology Nonreactive (Nonreactive) POC Glucose (70-110) mg/dL 08/28/20 08/27/20 08/27/20 Range/Units 02:18 20:36 19:15 WBC 5.3 (4.4-11.0) K/mm3 RBC 4.16 L (4.6-6.2) M/mm3 Hgb 12.9 L (13.0-16.5) g/dL Hct 40.7 (40-54) % MCV 97.8 H (80-94) fL MCH 31.0 (27.0-32.0) pg MCHC 31.7 L (32-36) g/dL RDW Std Deviation 47.7 H (35.1-43.9) fl RDW Coeff of Kina 13.1 (11.6-14.6) % Plt Count 178 (150-450) K/mm3 MPV 11.1 (6.2-12.0) fl Immature Gran % (Auto) (0.0-0.9) % Neut % (Auto) (47-70) % Lymph % (Auto) (19-41) % [place] % (Auto) (0-10) % Eos % (Auto) (0-5) % Baso % (Auto) (0-1) % Absolute Neuts (auto) (2.0-7.7) X10^3/uL Absolute Lymphs (auto) (0.83-4.51) X10^3/uL Nucleated RBC % (0-5) % Differential Comment PT 16.5 H (11.7-14.9) SECONDS INR 1.4 APTT 42.7 H (24.1-36.2) Seconds D-Dimer Quant (PE/DVT) (0.27-0.49) FEU/ug/m Specimen Type Sample Site pH (7.35-7.45) Bicarbonate Actual (22-26) mmol/L Total CO2 mmol/L Base Excess (-2 to +2) mmol/L O2 Saturation (95-99) % ABG pCO2 (35-45) mmHg ABG pO2 (75-100) mmHG Jose Luis Test O2 Delivery Device Liter Flow /min Sodium (136-145) mmol/L Potassium (3.5-5.1) mmol/L Chloride (98-107) mmol/L Carbon Dioxide (21.0-32.0) mmol/L Anion Gap (5-15) BUN (7-18) mg/dL Creatinine (0.70-1.30) mg/dL Estim Creat Clear Calc ml/min Est GFR (MDRD) Af Amer (>60) mL/min Est GFR (MDRD) Non-Af (>60) mL/min BUN/Creatinine Ratio (10-20) RATIO Glucose (74-106) mg/dL Hemoglobin A1c (3.8-5.6) % Lactic Acid (0.4-1.9) mmol/L Calcium (8.5-10.1) mg/dL Magnesium (1.6-2.6) mg/dL Ferritin (26-388) ng/mL Total Bilirubin (0.20-1.00) mg/dL Direct Bilirubin (0.00-0.30) mg/dL AST (15-37) U/L ALT (16-61) U/L Alkaline Phosphatase (45-117) U/L Lactate Dehydrogenase (87-241) U/L Troponin I (<0.045) ng/mL C-React Prot Ext Range (0.0-3.0) mg/L Total Protein (6.4-8.2) g/dL Albumin (3.2-5.0) g/dL Globulin (2.2-4.2) g/dL Albumin/Globulin Ratio (0.9-2.4) RATIO Procalcitonin (0.00-0.09) ng/mL COVID-19 ([facility]) (Not Detect) SARS Serology (Nonreactive) POC Glucose 327 H (70-110) mg/dL 08/27/20 08/27/20 08/27/20 Range/Units 16:52 12:02 08:07 WBC (4.4-11.0) K/mm3 RBC (4.6-6.2) M/mm3 Hgb (13.0-16.5) g/dL Hct (40-54) % MCV (80-94) fL MCH (27.0-32.0) pg MCHC (32-36) g/dL RDW Std Deviation (35.1-43.9) fl RDW Coeff of Kina (11.6-14.6) % Plt Count (150-450) K/mm3 MPV (6.2-12.0) fl Immature Gran % (Auto) (0.0-0.9) % Neut % (Auto) (47-70) % Lymph % (Auto) (19-41) % [place] % (Auto) (0-10) % Eos % (Auto) (0-5) % Baso % (Auto) (0-1) % Absolute Neuts (auto) (2.0-7.7) X10^3/uL Absolute Lymphs (auto) (0.83-4.51) X10^3/uL Nucleated RBC % (0-5) % Differential Comment PT (11.7-14.9) SECONDS INR APTT (24.1-36.2) Seconds D-Dimer Quant (PE/DVT) (0.27-0.49) FEU/ug/m Specimen Type Sample Site pH (7.35-7.45) Bicarbonate Actual (22-26) mmol/L Total CO2 mmol/L Base Excess (-2 to +2) mmol/L O2 Saturation (95-99) % ABG pCO2 (35-45) mmHg ABG pO2 (75-100) mmHG Jose Luis Test O2 Delivery Device Liter Flow /min Sodium (136-145) mmol/L Potassium (3.5-5.1) mmol/L Chloride (98-107) mmol/L Carbon Dioxide (21.0-32.0) mmol/L Anion Gap (5-15) BUN (7-18) mg/dL Creatinine (0.70-1.30) mg/dL Estim Creat Clear Calc ml/min Est GFR (MDRD) Af Amer (>60) mL/min Est GFR (MDRD) Non-Af (>60) mL/min BUN/Creatinine Ratio (10-20) RATIO Glucose (74-106) mg/dL Hemoglobin A1c (3.8-5.6) % Lactic Acid (0.4-1.9) mmol/L Calcium (8.5-10.1) mg/dL Magnesium (1.6-2.6) mg/dL Ferritin (26-388) ng/mL Total Bilirubin (0.20-1.00) mg/dL Direct Bilirubin (0.00-0.30) mg/dL AST (15-37) U/L ALT (16-61) U/L Alkaline Phosphatase (45-117) U/L Lactate Dehydrogenase (87-241) U/L Troponin I (<0.045) ng/mL C-React Prot Ext Range (0.0-3.0) mg/L Total Protein (6.4-8.2) g/dL Albumin (3.2-5.0) g/dL Globulin (2.2-4.2) g/dL Albumin/Globulin Ratio (0.9-2.4) RATIO Procalcitonin (0.00-0.09) ng/mL COVID-19 ([facility]) (Not Detect) SARS Serology (Nonreactive) POC Glucose 379 H 319 H 281 H (70-110) mg/dL 08/27/20 08/27/20 08/27/20 Range/Units 06:26 05:12 05:12 WBC (4.4-11.0) K/mm3 RBC (4.6-6.2) M/mm3 Hgb (13.0-16.5) g/dL Hct (40-54) % MCV (80-94) fL MCH (27.0-32.0) pg MCHC (32-36) g/dL RDW Std Deviation (35.1-43.9) fl RDW Coeff of Kina (11.6-14.6) % Plt Count (150-450) K/mm3 MPV (6.2-12.0) fl Immature Gran % (Auto) (0.0-0.9) % Neut % (Auto) (47-70) % Lymph % (Auto) (19-41) % [place] % (Auto) (0-10) % Eos % (Auto) (0-5) % Baso % (Auto) (0-1) % Absolute Neuts (auto) (2.0-7.7) X10^3/uL Absolute Lymphs (auto) (0.83-4.51) X10^3/uL Nucleated RBC % (0-5) % Differential Comment PT (11.7-14.9) SECONDS INR APTT (24.1-36.2) Seconds D-Dimer Quant (PE/DVT) (0.27-0.49) FEU/ug/m Specimen Type Sample Site pH (7.35-7.45) Bicarbonate Actual (22-26) mmol/L Total CO2 mmol/L Base Excess (-2 to +2) mmol/L O2 Saturation (95-99) % ABG pCO2 (35-45) mmHg ABG pO2 (75-100) mmHG Jose Luis Test O2 Delivery Device Liter Flow /min Sodium 127 L (136-145) mmol/L Potassium 4.6 (3.5-5.1) mmol/L Chloride 92 L (98-107) mmol/L Carbon Dioxide 25.0 (21.0-32.0) mmol/L Anion Gap 10 (5-15) BUN 16 (7-18) mg/dL Creatinine 1.23 (0.70-1.30) mg/dL Estim Creat Clear Calc 64.66 ml/min Est GFR (MDRD) Af Amer 77 (>60) mL/min Est GFR (MDRD) Non-Af 64 (>60) mL/min BUN/Creatinine Ratio 13.0 (10-20) RATIO Glucose 302 H (74-106) mg/dL Hemoglobin A1c 9.8 H (3.8-5.6) % Lactic Acid (0.4-1.9) mmol/L Calcium 7.7 L (8.5-10.1) mg/dL Magnesium (1.6-2.6) mg/dL Ferritin (26-388) ng/mL Total Bilirubin 0.50 (0.20-1.00) mg/dL Direct Bilirubin (0.00-0.30) mg/dL AST 106 H (15-37) U/L ALT 77 H (16-61) U/L Alkaline Phosphatase 117 (45-117) U/L Lactate Dehydrogenase (87-241) U/L Troponin I (<0.045) ng/mL C-React Prot Ext Range (0.0-3.0) mg/L Total Protein 5.8 L (6.4-8.2) g/dL Albumin 2.2 L (3.2-5.0) g/dL Globulin 3.6 (2.2-4.2) g/dL Albumin/Globulin Ratio 0.6 L (0.9-2.4) RATIO Procalcitonin (0.00-0.09) ng/mL COVID-19 ([facility]) (Not Detect) SARS Serology (Nonreactive) POC Glucose 306 H (70-110) mg/dL 08/27/20 08/26/20 08/26/20 Range/Units 05:12 20:58 20:47 WBC 5.9 (4.4-11.0) K/mm3 RBC 4.04 L (4.6-6.2) M/mm3 Hgb 12.5 L (13.0-16.5) g/dL Hct 38.4 L (40-54) % MCV 95.0 H (80-94) fL MCH 30.9 (27.0-32.0) pg MCHC 32.6 (32-36) g/dL RDW Std Deviation 46.5 H (35.1-43.9) fl RDW Coeff of Kina 13.2 (11.6-14.6) % Plt Count 177 (150-450) K/mm3 MPV 10.8 (6.2-12.0) fl Immature Gran % (Auto) 0.700 (0.0-0.9) % Neut % (Auto) 88.0 H (47-70) % Lymph % (Auto) 6.4 L (19-41) % [place] % (Auto) 4.7 (0-10) % Eos % (Auto) 0.0 (0-5) % Baso % (Auto) 0.2 (0-1) % Absolute Neuts (auto) 5.2 (2.0-7.7) X10^3/uL Absolute Lymphs (auto) 0.38 L (0.83-4.51) X10^3/uL Nucleated RBC % 0 (0-5) % Differential Comment PT (11.7-14.9) SECONDS INR APTT (24.1-36.2) Seconds D-Dimer Quant (PE/DVT) (0.27-0.49) FEU/ug/m Specimen Type ART Sample Site L Radial pH 7.46 H (7.35-7.45) Bicarbonate Actual 27.5 H (22-26) mmol/L Total CO2 29 mmol/L Base Excess 4 H (-2 to +2) mmol/L O2 Saturation 92 L (95-99) % ABG pCO2 39.0 (35-45) mmHg ABG pO2 59 L (75-100) mmHG Jose Luis Test Positive O2 Delivery Device Cannula Liter Flow 2.0 /min Sodium (136-145) mmol/L Potassium (3.5-5.1) mmol/L Chloride (98-107) mmol/L Carbon Dioxide (21.0-32.0) mmol/L Anion Gap (5-15) BUN (7-18) mg/dL Creatinine (0.70-1.30) mg/dL Estim Creat Clear Calc ml/min Est GFR (MDRD) Af Amer (>60) mL/min Est GFR (MDRD) Non-Af (>60) mL/min BUN/Creatinine Ratio (10-20) RATIO Glucose (74-106) mg/dL Hemoglobin A1c (3.8-5.6) % Lactic Acid (0.4-1.9) mmol/L Calcium (8.5-10.1) mg/dL Magnesium (1.6-2.6) mg/dL Ferritin (26-388) ng/mL Total Bilirubin (0.20-1.00) mg/dL Direct Bilirubin (0.00-0.30) mg/dL AST (15-37) U/L ALT (16-61) U/L Alkaline Phosphatase (45-117) U/L Lactate Dehydrogenase (87-241) U/L Troponin I (<0.045) ng/mL C-React Prot Ext Range (0.0-3.0) mg/L Total Protein (6.4-8.2) g/dL Albumin (3.2-5.0) g/dL Globulin (2.2-4.2) g/dL Albumin/Globulin Ratio (0.9-2.4) RATIO Procalcitonin (0.00-0.09) ng/mL COVID-19 ([facility]) (Not Detect) SARS Serology (Nonreactive) POC Glucose 221 H (70-110) mg/dL 08/26/20 08/26/20 08/26/20 Range/Units 16:15 13:30 13:30 WBC (4.4-11.0) K/mm3 RBC (4.6-6.2) M/mm3 Hgb (13.0-16.5) g/dL Hct (40-54) % MCV (80-94) fL MCH (27.0-32.0) pg MCHC (32-36) g/dL RDW Std Deviation (35.1-43.9) fl RDW Coeff of Kina (11.6-14.6) % Plt Count (150-450) K/mm3 MPV (6.2-12.0) fl Immature Gran % (Auto) (0.0-0.9) % Neut % (Auto) (47-70) % Lymph % (Auto) (19-41) % [place] % (Auto) (0-10) % Eos % (Auto) (0-5) % Baso % (Auto) (0-1) % Absolute Neuts (auto) (2.0-7.7) X10^3/uL Absolute Lymphs (auto) (0.83-4.51) X10^3/uL Nucleated RBC % (0-5) % Differential Comment PT (11.7-14.9) SECONDS INR APTT (24.1-36.2) Seconds D-Dimer Quant (PE/DVT) (0.27-0.49) FEU/ug/m Specimen Type Sample Site pH (7.35-7.45) Bicarbonate Actual (22-26) mmol/L Total CO2 mmol/L Base Excess (-2 to +2) mmol/L O2 Saturation (95-99) % ABG pCO2 (35-45) mmHg ABG pO2 (75-100) mmHG Jose Luis Test O2 Delivery Device Liter Flow /min Sodium (136-145) mmol/L Potassium (3.5-5.1) mmol/L Chloride (98-107) mmol/L Carbon Dioxide (21.0-32.0) mmol/L Anion Gap (5-15) BUN (7-18) mg/dL Creatinine (0.70-1.30) mg/dL Estim Creat Clear Calc ml/min Est GFR (MDRD) Af Amer (>60) mL/min Est GFR (MDRD) Non-Af (>60) mL/min BUN/Creatinine Ratio (10-20) RATIO Glucose (74-106) mg/dL Hemoglobin A1c (3.8-5.6) % Lactic Acid (0.4-1.9) mmol/L Calcium (8.5-10.1) mg/dL Magnesium 2.0 (1.6-2.6) mg/dL Ferritin 765 H (26-388) ng/mL Total Bilirubin (0.20-1.00) mg/dL Direct Bilirubin (0.00-0.30) mg/dL AST (15-37) U/L ALT (16-61) U/L Alkaline Phosphatase (45-117) U/L Lactate Dehydrogenase 423 H (87-241) U/L Troponin I (<0.045) ng/mL C-React Prot Ext Range (0.0-3.0) mg/L Total Protein (6.4-8.2) g/dL Albumin (3.2-5.0) g/dL Globulin (2.2-4.2) g/dL Albumin/Globulin Ratio (0.9-2.4) RATIO Procalcitonin 1.05 H (0.00-0.09) ng/mL COVID-19 ([facility]ILET) Negative (Not Detect) SARS Serology (Nonreactive) POC Glucose (70-110) mg/dL 08/26/20 08/26/20 08/26/20 Range/Units 13:30 13:30 13:30 WBC (4.4-11.0) K/mm3 RBC (4.6-6.2) M/mm3 Hgb (13.0-16.5) g/dL Hct (40-54) % MCV (80-94) fL MCH (27.0-32.0) pg MCHC (32-36) g/dL RDW Std Deviation (35.1-43.9) fl RDW Coeff of Kina (11.6-14.6) % Plt Count (150-450) K/mm3 MPV (6.2-12.0) fl Immature Gran % (Auto) (0.0-0.9) % Neut % (Auto) (47-70) % Lymph % (Auto) (19-41) % [place] % (Auto) (0-10) % Eos % (Auto) (0-5) % Baso % (Auto) (0-1) % Absolute Neuts (auto) (2.0-7.7) X10^3/uL Absolute Lymphs (auto) (0.83-4.51) X10^3/uL Nucleated RBC % (0-5) % Differential Comment PT (11.7-14.9) SECONDS INR APTT (24.1-36.2) Seconds D-Dimer Quant (PE/DVT) 4.62 H* (0.27-0.49) FEU/ug/m Specimen Type Sample Site pH (7.35-7.45) Bicarbonate Actual (22-26) mmol/L Total CO2 mmol/L Base Excess (-2 to +2) mmol/L O2 Saturation (95-99) % ABG pCO2 (35-45) mmHg ABG pO2 (75-100) mmHG Jose Luis Test O2 Delivery Device Liter Flow /min Sodium 129 L (136-145) mmol/L Potassium 4.3 (3.5-5.1) mmol/L Chloride 94 L (98-107) mmol/L Carbon Dioxide 27.0 (21.0-32.0) mmol/L Anion Gap 8 (5-15) BUN 16 (7-18) mg/dL Creatinine 1.28 (0.70-1.30) mg/dL Estim Creat Clear Calc 62.14 ml/min Est GFR (MDRD) Af Amer 74 (>60) mL/min Est GFR (MDRD) Non-Af 61 (>60) mL/min BUN/Creatinine Ratio 12.5 (10-20) RATIO Glucose 234 H (74-106) mg/dL Hemoglobin A1c (3.8-5.6) % Lactic Acid 1.4 (0.4-1.9) mmol/L Calcium 8.5 (8.5-10.1) mg/dL Magnesium (1.6-2.6) mg/dL Ferritin (26-388) ng/mL Total Bilirubin 0.40 (0.20-1.00) mg/dL Direct Bilirubin (0.00-0.30) mg/dL AST 82 H (15-37) U/L ALT 66 H (16-61) U/L Alkaline Phosphatase 128 H (45-117) U/L Lactate Dehydrogenase (87-241) U/L Troponin I 0.030 (<0.045) ng/mL C-React Prot Ext Range 314.00 H (0.0-3.0) mg/L Total Protein 7.1 (6.4-8.2) g/dL Albumin 2.3 L (3.2-5.0) g/dL Globulin 4.8 H (2.2-4.2) g/dL Albumin/Globulin Ratio 0.5 L (0.9-2.4) RATIO Procalcitonin (0.00-0.09) ng/mL COVID-19 ([facility]T) (Not Detect) SARS Serology (Nonreactive) POC Glucose (70-110) mg/dL 08/26/20 Range/Units 13:30 WBC 6.5 (4.4-11.0) K/mm3 RBC 4.29 L (4.6-6.2) M/mm3 Hgb 13.7 (13.0-16.5) g/dL Hct 40.9 (40-54) % MCV 95.3 H (80-94) fL MCH 31.9 (27.0-32.0) pg MCHC 33.5 (32-36) g/dL RDW Std Deviation 46.1 H (35.1-43.9) fl RDW Coeff of Kina 13.1 (11.6-14.6) % Plt Count 186 (150-450) K/mm3 MPV 10.6 (6.2-12.0) fl Immature Gran % (Auto) 0.600 (0.0-0.9) % Neut % (Auto) 85.1 H (47-70) % Lymph % (Auto) 9.2 L (19-41) % [place] % (Auto) 4.9 (0-10) % Eos % (Auto) 0.0 (0-5) % Baso % (Auto) 0.2 (0-1) % Absolute Neuts (auto) 5.6 (2.0-7.7) X10^3/uL Absolute Lymphs (auto) 0.60 L (0.83-4.51) X10^3/uL Nucleated RBC % 0 (0-5) % Differential Comment COMMENT PT (11.7-14.9) SECONDS INR APTT (24.1-36.2) Seconds D-Dimer Quant (PE/DVT) (0.27-0.49) FEU/ug/m Specimen Type Sample Site pH (7.35-7.45) Bicarbonate Actual (22-26) mmol/L Total CO2 mmol/L Base Excess (-2 to +2) mmol/L O2 Saturation (95-99) % ABG pCO2 (35-45) mmHg ABG pO2 (75-100) mmHG Jose Luis Test O2 Delivery Device Liter Flow /min Sodium (136-145) mmol/L Potassium (3.5-5.1) mmol/L Chloride (98-107) mmol/L Carbon Dioxide (21.0-32.0) mmol/L Anion Gap (5-15) BUN (7-18) mg/dL Creatinine (0.70-1.30) mg/dL Estim Creat Clear Calc ml/min Est GFR (MDRD) Af Amer (>60) mL/min Est GFR (MDRD) Non-Af (>60) mL/min BUN/Creatinine Ratio (10-20) RATIO Glucose (74-106) mg/dL Hemoglobin A1c (3.8-5.6) % Lactic Acid (0.4-1.9) mmol/L Calcium (8.5-10.1) mg/dL Magnesium (1.6-2.6) mg/dL Ferritin (26-388) ng/mL Total Bilirubin (0.20-1.00) mg/dL Direct Bilirubin (0.00-0.30) mg/dL AST (15-37) U/L ALT (16-61) U/L Alkaline Phosphatase (45-117) U/L Lactate Dehydrogenase (87-241) U/L Troponin I (<0.045) ng/mL C-React Prot Ext Range (0.0-3.0) mg/L Total Protein (6.4-8.2) g/dL Albumin (3.2-5.0) g/dL Globulin (2.2-4.2) g/dL Albumin/Globulin Ratio (0.9-2.4) RATIO Procalcitonin (0.00-0.09) ng/mL COVID-19 ([facility]) (Not Detect) SARS Serology (Nonreactive) POC Glucose (70-110) mg/dL Clinical Impression(s) from Imaging Studies Chest X-Ray 08/26/20 13:12 IMPRESSION: Dense infiltrate in the left midlung. Mild increased markings in the right upper lobe. Radiographic follow-up is recommended until clearing. Electronically Signed: Boston Clay, at 13:58 EST , Service support , Chest CTA 08/26/20 13:27 IMPRESSION: Multiple bilateral small pulmonary emboli as described. Dense infiltration in the left upper lobe as well as in the left lower lobe and focal infiltrate in the right upper lobe. Radiographic follow-up is recommended. Electronically Signed: Boston Clay, at 15:32 EST , Service support , Operations: None Summary of Care Provided: Patient is a 59-year-old gentleman admitted with progressive generalized weakness fever chills and headache and loose bowel movement. High suspicion for COVID-19. His COVID-19 rapid antigen test was however negative. Patient was however placed under isolation whilst the PCR test was pursued 1. Acute hypoxic respiratory failure bilateral pulmonary embolism with pulmonary infarction ?CTA of the chest demonstrated Multiple bilateral small pulmonary emboli as described. Dense infiltration in the left upper lobe as well as in the left lower lobe and focal infiltrate in the right upper lobe. Patient was started on systemic anticoagulation admitted to the COVID-19 cohort floor. COVID-19 PCR ordered) (came back negative). Consult was also placed to pulmonary medicine in addition to ID which have been consulted on admission patient has been started on Xarelto on admission discontinued started on heparin drip (there is some evidence heparin has some antiviral activity) - -08/28/2020; patient seen his overall clinical condition improving. Patient is more awake and coherent and interactive -08/29/2020; overall clinical condition continues to improve; discontinued heparin patient started on Eliquis -08/30/2020; prescription written for Eliquis on discharge 2. Suspected COVID-19 pneumonia Patient resented with with progressive generalized weakness fever chills and headache and loose bowel movement. His COVID-19 rapid antigen test was however negative. Patient was however placed under isolation whilst the PCR test was pursued. PCR came back negative patient however was placed on the isolation precautions given the high suspicion after discussion with ID -08/28/2020: Patient was started on remdesivir as well as Decadron by infectious disease -08/30/2020; cefdinir written on discharge 3. Diabetes mellitus type II -patient's oral hypoglycemics held. -Placed on long acting insulin, Accu-Cheks a.c. and at bedtime and covered with sliding scale insulin -08/28/2020; patient blood glucose levels uncontrolled adjusted his insulin regimen 4. Hypertension - Blood pressure controlled, home medications continued with dose adjustment as needed 5. Hypothyroidism - Patient is on levothyroxine home dose continued 6. Morbid obesity - With a BMI of 55.7 patient was counseled on weight reduction 7. Obstructive sleep apnea ?Patient to undergo overnight pulse ox studies. Plan is for patient to be discharged on auto titrate BiPAP on discharge Patient Problems: Active and Suspected Problems (Last Updated 12/27/18 @ 07:[address] Ruben Sandoval, DO) Bilateral pneumonia (Acute) Suspected COVID-19 virus infection (Acute) Objective: GENERAL: cooperative HEENT: Atraumatic; EYES; Anicteric, Normal Conjunctiva NECK; supple, normal thyroid, RESPIRATORY: Diminished to auscultation CARDIOVASCULAR: Regular S1 S2, GI: soft, normoactive bowel sounds, : No Renal angle tenderness; EXTREMITIES: No edema, no clubbing, MUSCULOSKELETAL: no muscle waisting NEURO: Awake; no lateralizing signs. SKIN: No Rash PSYCH; Flat affect - Physical Exam Vitals/I&O's: Vital Signs Temp Pulse Resp BP Pulse Ox 97.7 F L 75 18 166/95 H 94 08/30/20 08:50 08/30/20 08:50 08/30/20 08:50 08/30/20 08:50 08/30/20 08:50 Oxygen Flow Rate (L/min) 2 Oxygen Delivery Method Room Air Weight: 172.9 kg Body Mass Index (BMI) 55.4 Intake and Output for Last 24 Hours 08/28/20 08/29/20 08/30/20 23:59 23:59 23:59 Intake Total 4480.78 / 4480.78 4113.73 / 4113.73 50 / 50 Output Total 2350 / 2350 350 / 350 Balance 2130.78 / 2130.78 3763.73 / 3763.73 50 / 50 Microbiology Past 72 Hours 08/26/20 21:00 Interface Orders Gram Stain - Final 08/26/20 21:00 Interface Orders Respiratory Culture - Final Mixed normal respiratory srinivas. No Streptococcus pneumoniae, beta-hemolytic Streptococcus or Staphylococcus aureus isolated. 08/26/20 14:45 Blood Culture (Wb) - Other Blood Culture - Preliminary No growth in 48 hours. 08/26/20 13:30 Blood Culture (Wb) - Anticubital Right Blood Culture - Preliminary No growth in 48 hours. Laboratory Results 08/29/20 11:41: POC Glucose 255 H 08/29/20 16:15: POC Glucose 314 H 08/29/20 22:06: Specimen Type ART, pH 7.39, Bicarbonate Actual 26.0, Total CO2 27, Base Excess 1, O2 Saturation 96, ABG pCO2 43.0, ABG pO2 84, O2 Delivery Device Cannula, Liter Flow 2.0 08/29/20 22:29: POC Glucose 297 H 08/30/20 06:20: WBC 8.3, RBC 4.59 L, Hgb 14.2, Hct 43.8, MCV 95.4 H, MCH 30.9, MCHC 32.4, RDW Std Deviation 46.5 H, RDW Coeff of Kina 13.0, Plt Count 366, MPV 10.7 08/30/20 06:20: Sodium 134 L, Potassium 4.5, Chloride 100, Carbon Dioxide 25.0, Anion Gap 9, BUN 24 H, Creatinine 1.23, Estim Creat Clear Calc 64.66, Est GFR (MDRD) Af Amer 77, Est GFR (MDRD) Non-Af 64, BUN/Creatinine Ratio 19.5, Glucose 236 H, Calcium 8.6, Total Bilirubin 0.40, Direct Bilirubin 0.14, AST 54 H, ALT 102 H, Alkaline Phosphatase 115, Total Protein 6.4, Albumin 2.6 L, Globulin 3.8 08/30/20 07:38: POC Glucose 211 H Current Medications Acetaminophen (Acetaminophen 325 Mg Tablet) 650 mg PO Q6H PRN PRN PRN Reason: Pain Score 1-10/Temp > 100.7 F Last Admin: 08/27/20 04:13 Dose: 650 mg Documented by: Al Hydroxide/Mg Hydroxide (Mag Hydrox/Al Hydrox/Simeth 30 Ml Udc) 30 ml PO Q6H PRN PRN PRN Reason: Gastric Burning Albuterol Sulfate (Albuterol 2.5 Mg/3 Ml Vial.Neb.) 2.5 mg INHALATION Q2H PRN PRN PRN Reason: Dyspnea, wheezing Apixaban (Apixaban 5 Mg Tablet) 10 mg PO BID ZARI Last Admin: 08/30/20 09:24 Dose: 10 mg Documented by: Calamine/Phenol (Menthol/Lanolin/Calamine/Znox 113 Gm Tube) 1 applic TOPICAL BID [facility]; Protocol Last Admin: 08/30/20 09:30 Dose: 1 applicatio Documented by: Dexamethasone (Dexamethasone 4 Mg Tablet) 6 mg PO DAILY [facility] Stop: 09/04/20 10:01 Last Admin: 08/30/20 09:24 Dose: 6 mg Documented by: Dextrose (Dextrose 50%-Water 25 Gm/50 Ml Disp.Syrin) 0 gm IV X1 PRN; Protocol PRN Reason: Hypoglycemia Glucagon (Glucagon 1 Mg/Ml Syringe) 1 mg IM .X1 PRN PRN Reason: Hypoglycemia Guaifenesin (Guaifenesin 10 Ml Udc (200mg/10ml)) 20 ml PO Q4H PRN PRN PRN Reason: COUGH Heparin Sodium (Porcine) (Heparin Injection (Vial) 5,000 Unit/Ml Vial) 0 unit IV UD PRN; Protocol PRN Reason: dose adjustment Last Admin: 08/28/20 23:56 Dose: 1,000 unit Documented by: Hydralazine HCl (Hydralazine 20 Mg/Ml Vial) 10 mg IV Q4H PRN PRN PRN Reason: SBP > 160 Last Admin: 08/29/20 23:01 Dose: 10 mg Documented by: Ceftriaxone Sodium 2 gm/ (Sodium Chloride) 50 mls @ 100 mls/hr IV Q24 [facility] Last Infusion: 08/30/20 10:05 Dose: Infused Documented by: Remdesivir 100 mg/ Sodium (Chloride) 250 mls @ 125 mls/hr IV DAILY [facility]; Protocol Stop: 08/31/20 11:59 Last Admin: 08/30/20 10:38 Dose: 125 mls/hr Documented by: Insulin Glargine (Insulin Glargine 100 Units/Ml Pen) 25 units SC BID [facility] Last Admin: 08/30/20 09:28 Dose: 25 u Documented by: Insulin Human Lispro (Insulin Lispro 100 Unit/Ml Insuln.Pen) 0 unit SC ACHS [facility]; Protocol Last Admin: 08/30/20 09:26 Dose: 4 units Documented by: Insulin Human Lispro (Insulin Lispro 100 Unit/Ml Insuln.Pen) 10 unit SC TIDAC [facility] Last Admin: 08/30/20 09:26 Dose: 10 units Documented by: Levothyroxine Sodium (Levothyroxine 100 Mcg Tablet) 100 mcg PO DAILY [facility] Last Admin: 08/30/20 09:24 Dose: 100 mcg Documented by: Lisinopril (Lisinopril 20 Mg Tablet) 20 mg PO DAILY [facility] Last Admin: 08/30/20 09:24 Dose: 20 mg Documented by: Magnesium Hydroxide (Magnesium Hydroxide 30 Ml Udc) 30 ml PO DAILY PRN PRN PRN Reason: Constipation Melatonin (Melatonin 3 Mg Tablet) 3 mg PO QHS PRN PRN PRN Reason: INSOMNIA Last Admin: 08/26/20 20:29 Dose: 3 mg Documented by: Nitroglycerin (Nitroglycerin (Inpatient Use) 0.4 Mg Tab.Subl) 0.4 mg SUBLINGUAL Q5M PRN PRN Reason: CARDIAC/CHEST PAIN Ondansetron HCl (Ondansetron 4 Mg/2 Ml Vial) 4 mg IV Q8H PRN PRN PRN Reason: NAUSEA/VOMITING Prochlorperazine Edisylate (Prochlorperazine 10 Mg/2 Ml Vial) 5 mg IV Q4H PRN PRN PRN Reason: Breakthrough Nausea/Vomiting Psyllium Hydrophilic Mucilloid (Psyllium 1 Packet) 1 packet PO DAILY PRN PRN PRN Reason: Constipation Senna/Docusate Sodium (Senna/Docusate Sodium 1 Tablet) 2 tablet PO BID PRN PRN PRN Reason: Constipation Sodium Chloride (0.9% Saline Lock 10 Ml Syringe) 10 - 40 ml IV UD PRN PRN Reason: SALINE FLUSH Last Admin: 08/30/20 09:24 Dose: 10 ml Documented by: Throat Lozenges (Benzocaine/Menthol 1 Lozenge) 1 lozenge MUCOUS MEM Q2H PRN PRN PRN Reason: SORE THROAT Discharge Diet: 1800 Calorie Control Diet Home Medications: Medications to take at Discharge Lisinopril [Zestril] 20 mg PO DAILY #30 tab 05/05/19 metFORMIN HCl [Glucophage] 500 mg PO BIDCM #60 tab 05/05/19 Levothyroxine [Synthroid] 100 mcg PO DAILY@0600 06/03/20 Acetaminophen [Tylenol Tablet] 650 mg PO Q6H PRN PRN tablet 08/30/20 Apixaban [Eliquis] 5 mg PO BID #120 tab 08/30/20 Cefdinir [Omnicef [equiv]] 300 mg PO Q12H #14 cap 08/30/20 Dexamethasone [Decadron] 6 mg PO DAILY #5 tab 08/30/20 Following Prescriptions Were Given to Patient: Dexamethasone [Decadron] 6 mg PO DAILY #5 tab Transmission Status: Pending to [id number] Apixaban [Eliquis] 5 mg PO BID #120 tab Transmission Status: Pending to [id number] Cefdinir [Omnicef [equiv]] 300 mg PO Q12H #14 cap Transmission Status: Pending to [id number] Primary Care Physician: Enrique Otero Chi, MD [Primary Care Provider] - Please follow up with your Primary Care Physician in: in 5-7 days Disposition: Home Minutes spent on discharge:: 35 Medical Necessity - Tobacco Use Smoking Status: Never smoker Meaningful Use Info Meaningful Use Diagnoses (Choose all that apply): None applicable Inpatient E&M: [id number] [facility]
--- NOTE | 2020-09-02 13:06 | CASEMGMT ---
RN CM DC PHONE CALL DC DATE: 08/30/2020 DC DISPOSITION: DC DIAGNOSIS: SARS COVID 2 Intro role of CM to patient via phone. Pt states he is doing well, not concerns @ home. No questions re: O2, medications or f/u. Abbreviated conversation as patient seemed impatient to conclude call. No care improvement suggestions were given. Elsy MARTINEZN RN ACM
== END 2020-08-30 13:30 | disposition home or self-care (01) | DRG 177 ==
LOC: ED 13:53 → MS2 16:46
PROVIDERS: Emergency Medicine; Internal Medicine Infectious Disease; Admitting Provider Family Medicine; Emergency Provider Emergency Medicine; PCP Family Medicine Geriatric Medicine; Visit Provider Internal Medicine
DX: U07.1 COVID-19 (principal); J12.82 Pneumonia due to coronavirus disease 2019; I26.99 Other pulmonary embolism without acute cor pulmonale; J96.01 Acute respiratory failure with hypoxia; Z68.43 Body mass index [BMI] 50.0-59.9, adult; E11.65 Type 2 diabetes mellitus with hyperglycemia; I10 Essential (primary) hypertension; E78.5 Hyperlipidemia, unspecified; E03.9 Hypothyroidism, unspecified; M19.90 Unspecified osteoarthritis, unspecified site; M54.9 Dorsalgia, unspecified; G89.29 Other chronic pain; G47.33 Obstructive sleep apnea (adult) (pediatric); E66.01 Morbid (severe) obesity due to excess calories; Z91.19 Patient's noncompliance with other medical treatment and regimen; Z79.84 Long term (current) use of oral hypoglycemic drugs; Z79.890 Hormone replacement therapy; Z79.899 Other long term (current) drug therapy
CPT/HCPCS: 36415; 36600; 71045; 71275; 80048; 80053; 80076; 82728; 82803; 82962; 83036; 83605; 83615; 83735; 84145; 84484; 85025; 85027; 85379; 85610; 85730; 86140; 86769; 87040; 87070; 87205; 87426; 87449; 87633; 87635; 93005; 94002; 94003; 94762; 97161; 97166; 97803; 99251; 99285; J7030; J7050; Q9967; 90686; A4216; G0463; J0696; U0002

== ENCOUNTER → 2020-09-09 | Outpatient (CLI) | payer BC, MEDICAID, SELFPAY ==
[2020-08-26 18:45] VITALS: BMI 55.4
== END | disposition home or self-care (01) ==
LOC: LABSPEC 17:27
PROVIDERS: PCP Family Medicine Geriatric Medicine; Referring Provider Family Medicine Geriatric Medicine; Visit Provider Family Medicine Geriatric Medicine
DX: R68.83 Chills (without fever) (principal)
CPT/HCPCS: 87633; 87635; C9803; U0003

== ENCOUNTER → 2020-10-07 11:11 | Outpatient (CLI) | payer BC, MEDICAID, SELFPAY ==
[2020-10-07 12:29] LABS: Absolute Lymphocyte Count 1.62 X10^3/uL (0.83-4.51); Absolute Neutrophil Count 4.7 X10^3/uL (2.0-7.7); Basophil# 0.02 X10^3/uL; Basophil% 0.3 % (0-1); Eosinophil# 0.11 X10^3/uL; Eosinophils% 1.5 % (0-5); Hematocrit 40.3 % (40-54); Hemoglobin 13.5 g/dL (13.0-16.5); Lymphocyte # 1.62 X10^3/ul (4.0); Lymphocyte % 21.6 % (19-41); Mean Corp Hgb Conc 33.5 g/dL (32-36); Mean Corpuscular Hgb 31.8 pg (27.0-32.0); Mean Corpuscular Volume 94.8 fL (80-94); Mean Platelet Vol. 11.8 fl (6.2-12.0); Monocyte# 0.96 X10^3/uL; Monocyte% 12.8 % (0-10); NRBC Flagged by Analyzer 0 % (0-5); Neutrophil # 4.74 X10^3/uL (2.7-7.7); Neutrophil % 63.3 % (47-70); Platelet Count 265 K/mm3 (150-450); RBC Distribution Width CV 13.2 % (11.6-14.6); RBC Distribution Width SD 45.9 fl (35.1-43.9); Red Blood Count 4.25 M/mm3 (4.6-6.2); White Blood Count 7.5 K/mm3 (4.4-11.0)
[2020-10-07 12:46] LABS: AST(SGOT) 28 U/L (15-37); Alanine Aminotransfer ALT/SGPT 41 U/L (16-61); Albumin, Serum 3.4 g/dL (3.2-5.0); Alkaline Phosphatase 112 U/L (45-117); Anion Gap 9 (5-15); BUN 16 mg/dL (7-18); BUN/Creat Ratio 14.4 RATIO (10-20); Calcium,Total 9.1 mg/dL (8.5-10.1); Chloride 103 mmol/L (98-107); Creatinine, Serum 1.11 mg/dL (0.70-1.30); EST Glomerular Filtration Rate 72 mL/min (>60); Est Glom Filt Rate - Afr Amer 87 mL/min (>60); Globulin 3.3 g/dL (2.2-4.2); Glucose 131 mg/dL (74-106); Potassium 4.3 mmol/L (3.5-5.1); Protein, Total 6.7 g/dL (6.4-8.2); Sodium Level 138 mmol/L (136-145); Thyroid Stim Hormone (TSH) 2.59 uIU/mL (0.358-3.74)
[2020-10-09 13:49] LABS: SARS-COV-2 TOTAL ABS Nonreactive (Nonreactive)
== END ==
PROVIDERS: PCP Family Medicine Geriatric Medicine; Visit Provider Family Medicine Geriatric Medicine
DX: E11.65 Type 2 diabetes mellitus with hyperglycemia (principal); I10 Essential (primary) hypertension
CPT/HCPCS: 36415; 80053; 84443; 85025; 86769

== ENCOUNTER 2021-03-22 12:52 | Inpatient (IN) | payer BC, MEDICAID, SELFPAY ==
[2020-12-11 11:23] VITALS: BMI 55.4
[2021-03-22] VITALS (18 sets, daily range): BP systolic 141–173; BP diastolic 83–89; PULSE 81–105; RESP 14–20; TEMP 36–38; O2SAT 90–98; BMI 50.9; BMI 55.2
--- NOTE | 2021-03-22 13:05 | EKG12_ITS ---
Test Reason : SOB Blood Pressure : / mmHG Vent. Rate : 100 BPM Atrial Rate : 100 BPM P-R Int : 148 ms QRS Dur : 094 ms QT Int : 350 ms P-R-T Axes : 058 041 070 degrees QTc Int : 451 ms Normal sinus rhythm Nonspecific ST abnormality Abnormal ECG Confirmed by CECILIO HARO, IMAN ([id number]), editor house organ CHAI ENGEL ([id number]) on 03/26/2021 9:29:11 AM Referred By: ELIZABETH Confirmed By:IMAN HERNANDES MD
--- NOTE | 2021-03-22 13:05 | CT_ITS ---
STUDY: CTA CHEST REASON FOR EXAM: Male, 60 years old. Cough, shortness of breath RADIATION DOSAGE (If Supplied By Facility): CTDIvol = ( 15.04 ) mGy, DLP = ( 569.54 ) mGycm TECHNIQUE: The examination was performed with the intravenous administration of IV 100mL Isovue-370. Post-processing of the angiographic images was performed, with multiplanar reformation and 3D reconstruction. Individualized dose optimization techniques were used for this CT. COMPARISON: 08/26/2020 FINDINGS: There is limited enhancement of the main pulmonary artery and right and left pulmonary arteries. There is limited enhancement of the bilateral peripheral pulmonary arteries. There is no demonstrated pulmonary embolism. Normal thoracic aorta and visualized great vessels. There is no demonstrated aortic dissection. Normal heart and pericardium. There are calcifications of the coronary arteries. There are visualized mediastinal lymph nodes, which are within normal size limits, and with normal morphology. Normal hilar regions. Normal visualized trachea and bronchi. The lungs are well expanded. Mixed density nodule of the right middle lobe on image 138 of series 2 measures up to 1.3 cm with a 6 mm solid component. There are a few bronchovascular micronodules with faint groundglass opacity in the right middle lobe on image 130 of series 2. The multilobar airspace consolidation on the prior study has resolved. Normal pleura. Normal chest wall structures. There are degenerative changes of thoracic spine. Bilateral gynecomastia. Normal visualized upper abdomen. CT/CTA Chest W/WO Contrast IMPRESSION: 1. Limited by inadequate opacification of pulmonary arteries. No obvious pulmonary embolism identified. 2. Bronchovascular micronodules and groundglass opacities with largest groundglass opacity measuring 13 mm (solid component measuring 6 mm). Likely represents infectious bronchiolitis/pneumonitis but recommend follow-up chest CT in 3 months following appropriate medical management. Electronically Signed: Wesley Fajardo MD ([place]) at 14:40 EDT , Service support ,
[2021-03-22] MEDS: Ipratropium/Albuterol Sulfate 3 ML AMPUL.NEB INHALATION ×2 (13:20→20:12)
--- NOTE | 2021-03-22 13:25 | EX.ED.DYSGE1 ---
HPI History of Present Illness Chief Complaint: Shortness of Breath Detail of Chief Complaint: Shortness of breath and cough Informant: patient Onset/Context/Timing Onset: Days Context: Gradual Onset Timing: Continuous Current Severity: Moderate Maximum Severity: Moderate Worsened by: Nothing Relieved by: Nothing Associated Symptoms Associated Symptoms: Fevers Narrative Narrative: Patient reports cough, fever, shortness of breath. History of pneumonia. He was not vaccinated for COVID-19. No history of lung disease. He does have a history of blood clots and was on anticoagulation earlier this year. He was taken off of it after he completed his course. No chest pain. No other associated symptoms or infectious symptoms. Prior similar symptoms: Yes (Similar symptoms with pneumonia and pulmonary emboli in August of this yea) Recent Illness/Hospitalization: No PFSH PFS Medical History HTN (hypertension) Hyperlipidemia Hypothyroid RO (obstructive sleep apnea) Home Medications lisinopril 20 mg PO DAILY #30 tab 05/05/19 [Rx Last Taken 08/21/20] metformin 500 mg PO BIDCM #60 tab 05/05/19 [Rx Last Taken 08/19/20] levothyroxine 100 mcg PO DAILY@0600 06/03/20 [History Last Taken 08/19/20] acetaminophen 650 mg PO Q6H PRN PRN tab 08/30/20 [Rx Last Taken Unknown] apixaban 5 mg PO BID #120 tab 08/30/20 [Rx Last Taken Unknown] Allergy/AdvReac Type Severity Reaction Status Date / Time No Known Allergies Allergy Verified 03/22/21 12:53 Family History Other CAD (coronary artery disease) Social History Smoking Status: Never smoker ROS ROS ED Constitutional Constitutional ED: Reports chills and fever(s) Eyes Eyes: Denies change in vision ENT ENT ED: Denies ear pain Cardiovascular Cardiovascular: Denies chest pain Respiratory/Chest Respiratory/Chest: Reports cough, dyspnea and sputum Gastrointestinal Gastrointestinal: Denies abdominal pain, diarrhea, nausea or vomiting Genitourinary Genitourinary ED: Denies dysuria, hematuria or urinary frequency Musculoskeletal Musculoskeletal: Denies arthralgias or myalgias Integumentary Denies abscess or rash Neurologic Neurologic: Denies headache(s), paresthesias or weakness Psychiatric Psychiatric: Denies depression Endocrine Endocrinology: Denies polyuria Allergic/Immunologic Allergic/Immunologic ED: Denies urticaria EXAM Physical Exam Const Vital Signs: 03/22/21 12:54 03/22/21 12:56 03/22/21 13:05 Temperature 100.1 F H 100.1 F H Temperature Source Oral Oral Pulse Rate 95 97 95 Respiratory Rate 20 H 20 H 14 Respiratory Effort Respiratory Depth Respiratory Pattern Blood Pressure 170/88 H 170/88 H Blood Pressure Mean 115 115 Pulse Ox 92 90 93 Oxygen Delivery Method Room Air Room Air Room Air 03/22/21 13:22 03/22/21 13:31 03/22/21 13:56 Temperature 100.4 F H Temperature Source Oral Pulse Rate 93 105 H Respiratory Rate 15 19 H Respiratory Effort Short of Breath Respiratory Depth Shallow Respiratory Pattern Tachypnea Blood Pressure 141/89 H Blood Pressure Mean 106 Pulse Ox 90 98 Oxygen Delivery Method Room Air Room Air Room Air 03/22/21 14:00 03/22/21 14:05 Temperature 100.4 F H 100.4 F H Temperature Source Oral Oral Pulse Rate 105 H Respiratory Rate 19 H Respiratory Effort Respiratory Depth Respiratory Pattern Blood Pressure 141/89 H Blood Pressure Mean 106 Pulse Ox 98 Oxygen Delivery Method Room Air Positive well nourished and well developed General Appearance ED: well developed HEENT Negative for trauma or tenderness Eyes EOMs intact bilaterally Neck supple Resp Auscultation: diminished lung sounds Cardio regular rhythm Rate: tachycardic GI normal to inspection, nondistended, normoactive bowel sounds, non-tender and non-distended Palpation: soft Extremity normal to inspection General Extremety ED: Negative for tenderness Neuro oriented x3 and no sensory deficits noted Sensorium / Orientation: alert Motor Exam: strength 5/5 throughout Psych mental status grossly normal Skin no rashes or lesions noted MDM MDM MDM Narrative Medical decision making narrative: Patient presents with SIRS criteria history of PE. Sepsis work-up was initiated. White count was normal but lactate was 2.7. CTA showed bronchiolitis versus pneumonitis. Cultures pending. Covid test was negative. On reevaluation, vital signs have improved and white count is normal. I will not start antibiotics at this time. Glucose is elevated. He is hyponatremic but this is related to his hyperglycemia. Otherwise his work-up was fairly unremarkable. He was treated with insulin and IV fluids. Given his symptoms, history, multiple comorbidities, hyperglycemia, lactic acidosis, the hospitalist was contacted for inpatient care. Lab Data Labs: Laboratory Results - last 24 hr 03/22/21 03/22/21 03/22/21 13:15 13:15 13:15 WBC 5.5 RBC 4.77 Hgb 14.9 Hct 44.9 MCV 94.1 H MCH 31.2 MCHC 33.2 RDW Std Deviation 43.2 RDW Coeff of Kina 12.4 Plt Count 182 MPV 10.7 Immature Gran % (Auto) 0.700 Neut % (Auto) 76.0 H Lymph % (Auto) 10.9 L [place] % (Auto) 11.5 H Eos % (Auto) 0.5 Baso % (Auto) 0.4 Absolute Neuts (auto) 4.2 Absolute Lymphs (auto) 0.60 L Nucleated RBC % 0 PT 12.9 INR 1.0 APTT 29.3 Sodium 129 L Potassium 4.1 Chloride 92 L Carbon Dioxide 28.0 Anion Gap 9 BUN 10 Creatinine 1.24 Estim Creat Clear Calc 63.35 Est GFR (MDRD) Af Amer 76 Est GFR (MDRD) Non-Af 63 BUN/Creatinine Ratio 8.1 L Glucose 468 H* Lactic Acid Calcium 8.8 Total Bilirubin 0.50 AST 30 ALT 47 Alkaline Phosphatase 129 H Troponin I High Sens 34.9 Total Protein 7.0 Albumin 3.1 L Globulin 3.9 Albumin/Globulin Ratio 0.8 L Urine Color Urine Clarity Urine pH Ur Specific [place] Urine Protein Urine Glucose (UA) Urine Ketones Urine Occult Blood Urine Nitrite Urine Bilirubin Urine Urobilinogen Ur Leukocyte Esterase Urine RBC Urine WBC Ur Squamous Epith Cells Urine Bacteria Urine Mucus 03/22/21 03/22/21 13:15 14:30 WBC RBC Hgb Hct MCV MCH MCHC RDW Std Deviation RDW Coeff of Kina Plt Count MPV Immature Gran % (Auto) Neut % (Auto) Lymph % (Auto) [place] % (Auto) Eos % (Auto) Baso % (Auto) Absolute Neuts (auto) Absolute Lymphs (auto) Nucleated RBC % PT INR APTT Sodium Potassium Chloride Carbon Dioxide Anion Gap BUN Creatinine Estim Creat Clear Calc Est GFR (MDRD) Af Amer Est GFR (MDRD) Non-Af BUN/Creatinine Ratio Glucose Lactic Acid 2.7 H* Calcium Total Bilirubin AST ALT Alkaline Phosphatase Troponin I High Sens Total Protein Albumin Globulin Albumin/Globulin Ratio Urine Color Yellow Urine Clarity Clear Urine pH 6.5 Ur Specific [place] 1.010 Urine Protein 15 H Urine Glucose (UA) 1000 H Urine Ketones Negative Urine Occult Blood 10 H Urine Nitrite Negative Urine Bilirubin Negative Urine Urobilinogen Normal Ur Leukocyte Esterase Negative Urine RBC 0-5 SEEN Urine WBC 0 SEEN Ur Squamous Epith Cells 0 SEEN Urine Bacteria 0 SEEN Urine Mucus 0 SEEN Radiography Diagnostic Testing: Radiology Impression Chest CTA 03/22/21 13:05 IMPRESSION: 1. Limited by inadequate opacification of pulmonary arteries. No obvious pulmonary embolism identified. 2. Bronchovascular micronodules and groundglass opacities with largest groundglass opacity measuring 13 mm (solid component measuring 6 mm). Likely represents infectious bronchiolitis/pneumonitis but recommend follow-up chest CT in 3 months following appropriate medical management. Electronically Signed: Wesley Fajardo MD ([place]) at 14:40 EDT , Service support , EKG showed sinus rhythm at a rate of 100. This was interpreted by me. No signs of ischemia or infarction pattern. EKG Initial EKG: Attestation: I personally reviewed and interpreted this EKG as follows: (Sinus rhythm at a rate of 100 with no signs of ischemia or infarction. Nonspecific ST changes.) Discharge Plan Triage Chief Complaint: Shortness of Breath ED Provider: Gabino Pope Dx/Rx/DC Orders Clinical Impression: Acute hyperglycemia, Bronchiolitis, Acidosis, lactic Prescriptions: No Action metformin 500 MG tablet 500 mg PO BIDCM Qty: 60 RF: 0 lisinopril 20 MG tablet 20 mg PO DAILY Qty: 30 RF: 0 levothyroxine 88 MCG tablet 100 mcg PO DAILY@0600 RF: 0 apixaban 5 MG tablet 5 mg PO BID Qty: 120 RF: 3 acetaminophen 325 MG tablet 650 mg PO Q6H PRN PRN (Reason: Pain Score 1-10/Temp > 100.7 F) RF: 0 Primary Care Provider: Enrique Otero Chi Referrals: Enrique Otero Chi, MD [Primary Care Provider] -
[2021-03-22 13:31] LABS: Absolute Neutrophil Count 4.2 X10^3/uL (2.0-7.7); Basophil# 0.02 X10^3/uL; Basophil% 0.4 % (0-1); Eosinophil# 0.03 X10^3/uL; Eosinophils% 0.5 % (0-5); Hematocrit 44.9 % (40-54); Hemoglobin 14.9 g/dL (13.0-16.5); Lymphocyte % 10.9 % (19-41); Mean Corp Hgb Conc 33.2 g/dL (32-36); Mean Corpuscular Hgb 31.2 pg (27.0-32.0); Mean Corpuscular Volume 94.1 fL (80-94); Mean Platelet Vol. 10.7 fl (6.2-12.0); Monocyte# 0.63 X10^3/uL; Monocyte% 11.5 % (0-10); NRBC Flagged by Analyzer 0 % (0-5); Neutrophil # 4.16 X10^3/uL (2.7-7.7); POSITIVE DIFFERENTIAL YES; Platelet Count 182 K/mm3 (150-450); RBC Distribution Width CV 12.4 % (11.6-14.6); RBC Distribution Width SD 43.2 fl (35.1-43.9); Red Blood Count 4.77 M/mm3 (4.6-6.2); White Blood Count 5.5 K/mm3 (4.4-11.0)
[2021-03-22 13:34] LABS: Differential Indicated SCAN CRITERIA MET
[2021-03-22 13:41] LABS: Partial Thromboplast Time 29.3 Seconds (24.1-36.2); Prothrombin Time (Protime)PT. 12.9 SECONDS (11.7-14.9)
[2021-03-22 13:52] LABS: ALB/GLOB Ratio 0.8 RATIO (0.9-2.4); AST(SGOT) 30 U/L (15-37); Alanine Aminotransfer ALT/SGPT 47 U/L (16-61); Albumin, Serum 3.1 g/dL (3.2-5.0); Alkaline Phosphatase 129 U/L (45-117); Anion Gap 9 (5-15); BUN 10 mg/dL (7-18); BUN/Creat Ratio 8.1 RATIO (10-20); Calcium,Total 8.8 mg/dL (8.5-10.1); Chloride 92 mmol/L (98-107); Creatinine, Serum 1.24 mg/dL (0.70-1.30); EST Glomerular Filtration Rate 63 mL/min (>60); Est Glom Filt Rate - Afr Amer 76 mL/min (>60); Estimated Creatinine Clearance 63.35 ml/min; Globulin 3.9 g/dL (2.2-4.2); Glucose 468 mg/dL (74-106); Potassium 4.1 mmol/L (3.5-5.1); Sodium Level 129 mmol/L (136-145); Troponin-I HS 34.9 pg/mL (3.0-78.5)
[2021-03-22 13:58] LABS: Lactic Acid 2.7 mmol/L (0.4-1.9)
[2021-03-22 14:37] LABS: Bacteria 0 SEEN /hpf (None Seen); Mucous, Urine 0 SEEN /hpf (<or=2+); Squamous Epithelial Cells - UA 0 SEEN /hpf (0-5); White Blood Cells 0 SEEN /hpf (0-5)
[2021-03-22 14:41] LABS: Color, Urine Yellow (Yellow); Glucose, Dipstick 1000 mg/dl (Normal); Ketone-Dipstick Negative (Negative); Leukocyte Esterase-Dipstick Negative /ul (Negative); Nitrite-Dipstick Negative (Negative); Occult Blood-Urine 10 /ul (Negative); Protein-Dipstick 15 mg/dl (Negative); Urine Bilirubin Dipstick Negative (Negative); Urine Clarity Clear (Clear); Urine Urobilinogen Normal (Normal); Urine pH 6.5 (5.0 - 8.0)
[2021-03-22 14:57] LABS: Red Blood Cells-Urine 0-5 SEEN /hpf (0-5)
--- NOTE | 2021-03-22 15:30 | NURSING ---
PCU OLEGHE HYPERGLYCEMIA, BRONCHIOLITIS, LACTIC ACIDOSIS
[2021-03-22] MEDS: Insulin Lispro 100 UNIT/ML INSULN.PEN 10 UNIT SC (15:48)
[2021-03-22] MEDS: 0.9% Normal Saline 1,000 ML 1000 ML IV (15:48)
[2021-03-22] MEDS: 0.9% Normal Saline 1,000 ML 125 ML IV ×2 (16:59→23:44)
[2021-03-22 17:27] LABS: Reflex Lactate? Y
[2021-03-22] MEDS: Acetaminophen 325 MG Tablet 650 MG PO ×2 (17:45→23:44)
[2021-03-22] MEDS: guaiFENesin Dm 10 ML UDC PO (17:45)
[2021-03-22 18:05] LABS: Bedside Glucose 356 mg/dL (70-110)
[2021-03-22 18:36] LABS: Lactic Acid 1.7 mmol/L (0.4-1.9)
--- NOTE | 2021-03-22 18:37 | HP.PCM_ITS ---
HPI - General General Date of Admission: 03/22/21 HPI Narrative CASSI MORA, is a 60 M with a history of morbid obesity, obstructive sleep apnea but noncompliant with CPAP, type 2 diabetes and who presents with a 2 to 3-day history of shortness of breath, fever and cough initially productive of whitish colored sputum but now yellowish-brown. No malodor to the sputum and he denies any chest pain. No hemoptysis. Denies any wheezing. Does have some malaise and loss of appetite. Patient does not smoke. Blood glucose noted to be in the 400s. [facility] Medical History (Updated 03/22/21 @ 18:[address] Ana Ayala MD) Chronic pain HTN (hypertension) Hyperlipidemia Hypothyroid RO (obstructive sleep apnea) Home Medications lisinopril 20 mg PO DAILY #30 tab 05/05/19 [Rx Last Taken 08/21/20] metformin 500 mg PO BIDCM #60 tab 05/05/19 [Rx Last Taken 08/19/20] levothyroxine 100 mcg PO DAILY@0600 06/03/20 [History Last Taken 08/19/20] acetaminophen 650 mg PO Q6H PRN PRN tab 08/30/20 [Rx Last Taken Unknown] apixaban 5 mg PO BID #120 tab 08/30/20 [Rx Last Taken Unknown] atorvastatin 40 mg DAILY 03/22/21 [History Last Taken Unknown] Allergy/AdvReac Type Severity Reaction Status Date / Time No Known Allergies Allergy Verified 03/22/21 12:53 Family History Other CAD (coronary artery disease) Social History (Updated 03/22/21 @ 16:57 by Charlette Hubbard) adopted: No household members: spouse housing: house Smoking Status: Never smoker ROS ROS Narrative Denies any chest pain. Occasional vomiting but occasionally posttussive. All other systems reviewed and essentially negative. Vital Signs Vital Signs Vital Signs: 03/22/21 12:54 03/22/21 12:56 03/22/21 13:05 Temperature 37.8 C H 37.8 C H Temperature Source Oral Oral Pulse Rate 95 97 95 Respiratory Rate 20 H 20 H 14 Respiratory Effort Respiratory Depth Respiratory Pattern Blood Pressure 170/88 H 170/88 H Blood Pressure Mean 115 115 Blood Pressure Source Blood Pressure Position Blood Pressure Location Pulse Ox 92 90 93 Oxygen Delivery Method Room Air Room Air Room Air Oxygen Flow Rate (L/min) 03/22/21 13:22 03/22/21 13:31 03/22/21 13:56 Temperature 38.0 C H Temperature Source Oral Pulse Rate 93 105 H Respiratory Rate 15 19 H Respiratory Effort Short of Breath Respiratory Depth Shallow Respiratory Pattern Tachypnea Blood Pressure 141/89 H Blood Pressure Mean 106 Blood Pressure Source Blood Pressure Position Blood Pressure Location Pulse Ox 90 98 Oxygen Delivery Method Room Air Room Air Room Air Oxygen Flow Rate (L/min) 03/22/21 14:00 03/22/21 14:05 03/22/21 15:00 Temperature 38.0 C H 38.0 C H 37.7 C H Temperature Source Oral Oral Temporal Pulse Rate 105 H 97 Respiratory Rate 19 H 16 Respiratory Effort Respiratory Depth Respiratory Pattern Blood Pressure 141/89 H 165/89 H Blood Pressure Mean 106 114 Blood Pressure Source Blood Pressure Position Blood Pressure Location Pulse Ox 98 95 Oxygen Delivery Method Room Air Room Air Oxygen Flow Rate (L/min) 03/22/21 15:57 03/22/21 16:27 03/22/21 16:40 Temperature 37.5 C H 37.4 C H Temperature Source Temporal Oral Pulse Rate 94 88 93 Respiratory Rate 16 15 Respiratory Effort Respiratory Depth Respiratory Pattern Blood Pressure 165/89 H 162/84 H Blood Pressure Mean 114 110 Blood Pressure Source Monitor Blood Pressure Position Semi-Fowlers Blood Pressure Location Right Arm Pulse Ox 92 94 Oxygen Delivery Method Room Air Nasal Cannula Oxygen Flow Rate (L/min) 2 03/22/21 16:45 03/22/21 16:49 Temperature Temperature Source Pulse Rate Respiratory Rate Respiratory Effort Non-Labored Respiratory Depth Deep Respiratory Pattern Blood Pressure Blood Pressure Mean Blood Pressure Source Blood Pressure Position Blood Pressure Location Pulse Ox 94 Oxygen Delivery Method Nasal Cannula Room Air Oxygen Flow Rate (L/min) 2 2 Weight Weight: 169.7 kg Body Mass Index (BMI) 55.2 Physical Exam Narrative General. Middle-aged man, morbidly obese, acutely ill-appearing, appears uncomfortable. HEENT. Oral mucosa moist. No conjunctiva pallor Neck. Quite obese. Heart. First and second heart sounds heard. Quite distant though. Lungs. Diminished breath sounds bilaterally, end expiratory wheezing that is scattered. A few transmitted and harsh sounds. Abdomen. Obese. Nontender no organomegaly no palpable masses. Extremities. 1-2+ pitting edema bilaterally up to the knee. 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 Cranial nerves II to XII grossly intact. All other organ systems examined essentially noncontributory negative. Results Lab / Micro Data Result Diagrams: 03/22/21 13:15 03/22/21 13:15 Labs: Laboratory Results - last 24 hr 03/22/21 13:15: WBC 5.5, RBC 4.77, Hgb 14.9, Hct 44.9, MCV 94.1 H, MCH 31.2, MCHC 33.2, RDW Std Deviation 43.2, RDW Coeff of Kina 12.4, Plt Count 182, MPV 10.7, Immature Gran % (Auto) 0.700, Neut % (Auto) 76.0 H, Lymph % (Auto) 10.9 L, [place] % (Auto) 11.5 H, Eos % (Auto) 0.5, Baso % (Auto) 0.4, Absolute Neuts (auto) 4.2, Absolute Lymphs (auto) 0.60 L, Nucleated RBC % 0 03/22/21 13:15: PT 12.9, INR 1.0, APTT 29.3 03/22/21 13:15: Sodium 129 L, Potassium 4.1, Chloride 92 L, Carbon Dioxide 28.0, Anion Gap 9, BUN 10, Creatinine 1.24, Estim Creat Clear Calc 63.35, Est GFR (MDRD) Af Amer 76, Est GFR (MDRD) Non-Af 63, BUN/Creatinine Ratio 8.1 L, Glucose 468 H*, Calcium 8.8, Total Bilirubin 0.50, AST 30, ALT 47, Alkaline Phosphatase 129 H, Troponin I High Sens 34.9, Total Protein 7.0, Albumin 3.1 L, Globulin 3.9, Albumin/Globulin Ratio 0.8 L 03/22/21 13:15: Lactic Acid 2.7 H* 03/22/21 14:30: Urine Color Yellow, Urine Clarity Clear, Urine pH 6.5, Ur Specific [place] 1.010, Urine Protein 15 H, Urine Glucose (UA) 1000 H, Urine Ketones Negative, Urine Occult Blood 10 H, Urine Nitrite Negative, Urine Bilirubin Negative, Urine Urobilinogen Normal, Ur Leukocyte Esterase Negative, Urine RBC 0-5 SEEN, Urine WBC 0 SEEN, Ur Squamous Epith Cells 0 SEEN, Urine Bacteria 0 SEEN, Urine Mucus 0 SEEN 03/22/21 17:43: POC Glucose 356 H 03/22/21 17:50: Lactic Acid 1.7 Micro: Microbiology 03/22/21 13:15 Mucosa - Nose SARS-CoV-2 Antigen (Rapid) - Final Radiology Impression Chest CTA 03/22/21 13:05 IMPRESSION: 1. Limited by inadequate opacification of pulmonary arteries. No obvious pulmonary embolism identified. 2. Bronchovascular micronodules and groundglass opacities with largest groundglass opacity measuring 13 mm (solid component measuring 6 mm). Likely represents infectious bronchiolitis/pneumonitis but recommend follow-up chest CT in 3 months following appropriate medical management. Electronically Signed: Wesley Fajardo MD ([place]) at 14:40 EDT , Service support , Assessment & Plan Assessment/Plan (1) Acute bacterial bronchitis: PLAN: Unimpressive chest x-ray and chest CT. Continue with IV antibiotics. Inhaled bronchodilators. Mucolytic's. (2) Lactic acidosis: PLAN: Uncertain of the significance. Perhaps some volume depletion in the setting of Metformin use. Doubt patient is in sepsis or severe sepsis. Will monitor. (3) Morbid obesity with BMI of 50.0-59.9, adult: PLAN: Counseled on lifestyle modifications. Will consult dietitian. (4) Type 2 diabetes mellitus: PLAN: Poorly controlled. Last A1c was 10.1. Blood glucose on presentation was in the 400s. Counseled extensively on diet, need for weight loss and other lifestyle modifications. Will hold Metformin given lactic acidosis and IV contrast exposure today and mildly elevated creatinine. Start on basal and mealtime insulin sliding scale. On discharge resume Metformin but at increased dose of 1000 mg twice a day. Likely will need insulin long-term to achieve optimal diabetes control. We will consult simulation educator as well as dietitian. (5) RO (obstructive sleep apnea): PLAN: Patient states he has not tolerated CPAP in the past despite trial of different interfaces. Patient is clearly symptomatic from this. (6) Stage 1 chronic kidney disease due to type 2 diabetes mellitus: PLAN: Optimal blood pressure and diabetes control. MOIZ inhibitor/ARB. Charges/Coding Visit Charges Inpatient E&M: 26353 Init Hosp L3
[2021-03-22] MEDS: APIXABAN 5 MG TABLET PO (19:54)
[2021-03-22] MEDS: Insulin Lispro 100 UNIT/ML INSULN.PEN SC (19:56)
[2021-03-22 22:01] LABS: Bedside Glucose 389 mg/dL (70-110)
[2021-03-22] MEDS: Ondansetron 4 MG/2 ML Vial IV (23:37)
[2021-03-22] MEDS: 0.9% Saline Lock 10 ML Syringe IV (23:37)
[2021-03-23] VITALS (13 sets, daily range): BP systolic 133–149; BP diastolic 68–88; PULSE 70–93; RESP 16–20; TEMP 36.2–37.2; O2SAT 84–97
[2021-03-23] MEDS: Ipratropium/Albuterol Sulfate 3 ML AMPUL.NEB INHALATION ×4 (02:01→20:06)
[2021-03-23] MEDS: Levothyroxine 100 MCG Tablet PO (04:59)
--- NOTE | 2021-03-23 05:42 | CT_ITS ---
STUDY: CT FACIAL BONES WITHOUT CONTRAST REASON FOR EXAM: Male, 60 years old. Right preauricular and jaw pain -- probable parotitis RADIATION DOSAGE (If Supplied By Facility): CTDIvol = ( 29.38 ) mGy, DLP = ( 598.88 ) mGycm TECHNIQUE: The patient was scanned in a multi detector CT scanner. Sagittal and coronal images were reconstructed. Individualized dose optimization techniques were used for this CT. COMPARISON: None. FINDINGS: Enlargement of the right parotid gland with stranding in the surrounding fat suggestive of parotitis. No loculated fluid collection to suggest abscess. Normal orbital maldonado and orbital contents. Normal nasal bones and anterior nasal spine. Normal facial bones. There is no demonstrated fracture. Mucosal thickening of the maxillary sinuses and ethmoid air cells consistent with chronic sinusitis. CT/Sinus/Facial Bone IMPRESSION: 1. Right parotitis. No abscess. 2. Chronic right maxillary and ethmoid sinusitis. Electronically Signed: Paul Teran MD at 8:32 EDT Tel , Service support ,
--- NOTE | 2021-03-23 05:43 | PCM.PN.BLA ---
Progress Note Call this morning to see if patient will was noticed to have right preauricular and jaw swelling. This was not present last night. This is tender. Worse with jaw movement. Patient denies any fever or chills. Physical exam shows soft to firm, preauricular and right lower jaw swelling, tender to touch on palpation along the right mandible Suspect parotid gland swelling from sialolithiasis Will get CT of the head/jaw Encourage sucking on lemon juice
[2021-03-23] MEDS: Insulin Lispro 100 UNIT/ML INSULN.PEN SC ×4 (06:39→20:52)
[2021-03-23 06:40] LABS: Absolute Lymphocyte Count 0.61 X10^3/uL (0.83-4.51); Absolute Neutrophil Count 3.7 X10^3/uL (2.0-7.7); Basophil# 0.03 X10^3/uL; Basophil% 0.6 % (0-1); Eosinophil# 0.02 X10^3/uL; Eosinophils% 0.4 % (0-5); Hemoglobin 14.5 g/dL (13.0-16.5); Lymphocyte # 0.61 X10^3/ul (0.83-4.51); Lymphocyte % 12.2 % (19-41); Mean Corp Hgb Conc 31.5 g/dL (32-36); Mean Corpuscular Volume 98.5 fL (80-94); Mean Platelet Vol. 10.3 fl (6.2-12.0); Monocyte# 0.55 X10^3/uL; NRBC Flagged by Analyzer 0 % (0-5); Neutrophil # 3.68 X10^3/uL (2.7-7.7); Platelet Count 160 K/mm3 (150-450); RBC Distribution Width CV 12.7 % (11.6-14.6); RBC Distribution Width SD 45.9 fl (35.1-43.9); Red Blood Count 4.67 M/mm3 (4.6-6.2)
[2021-03-23 06:45] LABS: Bedside Glucose 327 mg/dL (70-110)
[2021-03-23 07:11] LABS: ALB/GLOB Ratio 0.7 RATIO (0.9-2.4); AST(SGOT) 30 U/L (15-37); Alanine Aminotransfer ALT/SGPT 43 U/L (16-61); Albumin, Serum 2.8 g/dL (3.2-5.0); Alkaline Phosphatase 118 U/L (45-117); Anion Gap 4 (5-15); BUN 9 mg/dL (7-18); BUN/Creat Ratio 9.1 RATIO (10-20); Calcium,Total 8.4 mg/dL (8.5-10.1); Chloride 96 mmol/L (98-107); Creatinine, Serum 0.99 mg/dL (0.70-1.30); EST Glomerular Filtration Rate 82 mL/min (>60); Est Glom Filt Rate - Afr Amer 99 mL/min (>60); Estimated Creatinine Clearance 79.35 ml/min; Globulin 3.8 g/dL (2.2-4.2); Glucose 312 mg/dL (74-106); Potassium 4.3 mmol/L (3.5-5.1); Protein, Total 6.6 g/dL (6.4-8.2); Sodium Level 132 mmol/L (136-145)
--- NOTE | 2021-03-23 08:14 | CPS ---
Pt found with nasal cannula in nose but turned off at wall. Flowmeter turned back on to 2lpm. Saturation up to 95%. Nurse was made aware
[2021-03-23] MEDS: guaiFENesin Dm 10 ML UDC PO (08:24)
[2021-03-23] MEDS: Acetaminophen 325 MG Tablet 650 MG PO (08:24)
[2021-03-23] MEDS: 0.9% Normal Saline 1,000 ML 125 ML IV ×2 (08:25→18:08)
[2021-03-23] MEDS: APIXABAN 5 MG TABLET PO ×2 (10:12→21:19)
[2021-03-23] MEDS: Lisinopril 20 MG Tablet PO (10:13)
[2021-03-23 12:26] LABS: Bedside Glucose 384 mg/dL (70-110)
--- NOTE | 2021-03-23 12:36 | PN.HOSP_ITS ---
Subjective Subjective The patient notes that he is less short of breath with less wheezing. He reports that his sputum has gone from a yellow/brown to a yellow/clear color. He denies any hemoptysis and feels like his secretions are thinner. He denies any chills or sweats overnight. He does not report any chest pain, nausea, or vomiting. He does report ongoing right jaw pain and swelling. He reports a headache in the frontal area which is an aching discomfort and a 4/10 intensity. He reports that he is intolerant of CPAP and does not intend to address that further. Objective Data Objective Data Vital Signs: Vital Signs Temp Pulse Resp BP Pulse Ox 98.9 F 88 17 149/73 H 95 03/23/21 10:03/23/21 10:03/23/21 10:03/23/21 10:03/23/21 10:07 Oxygen Flow Rate (L/min) 2 Oxygen Delivery Method Nasal Cannula Weight: 374 lb 1.991 oz Body Mass Index (BMI) 55.2 Intake & Output: Intake and Output for Last 24 Hours 03/21/21 03/22/21 03/23/21 23:59 23:59 23:59 Intake Total 2500.00 / 2500.00 1573.75 / 1573.75 Output Total 1725 / 1725 700 / 700 Balance 775.00 / 775.00 873.75 / 873.75 Lab / Micro Data Result Diagrams: 03/23/21 06:10 03/23/21 06:10 Labs: Laboratory Results - last 24 hr 03/23/21 06:10: Sodium 132 L, Potassium 4.3, Chloride 96 L, Carbon Dioxide 32.0, Anion Gap 4 L, BUN 9, Creatinine 0.99, Estim Creat Clear Calc 79.35, Est GFR (MDRD) Af Amer 99, Est GFR (MDRD) Non-Af 82, BUN/Creatinine Ratio 9.1 L, Glucose 312 H, Calcium 8.4 L, Total Bilirubin 0.50, AST 30, ALT 43, Alkaline Phosphatase 118 H, Total Protein 6.6, Albumin 2.8 L, Globulin 3.8, Albumin/Globulin Ratio 0.7 L 03/23/21 06:38: POC Glucose 327 H 03/23/21 12:03: POC Glucose 384 H Micro: Microbiology 03/22/21 14:30 Urine, Clean Catch Urine Culture - Preliminary Culture exhibits no growth. 03/22/21 13:15 Mucosa - Nose SARS-CoV-2 Antigen (Rapid) - Final Radiography Diagnostic Testing: Radiology Impression Facial/Sinus 03/23/21 05:42 IMPRESSION: 1. Right parotitis. No abscess. 2. Chronic right maxillary and ethmoid sinusitis. Electronically Signed: Paul Teran MD at 8:32 EDT Tel , Service support , Physical Exam Narrative Morbidly obese, in bed on his left side with tachypnea. He has nasal cannula in place at 3 L. He has an increased neck circumference with abdominal obesity. He has decreased breath sounds with scattered rhonchi and faint wheezing. He does not have any rales or focal egophony. He has distant, regular heart sounds with no murmurs or gallops. He has 2+ pitting edema in the pretibial areas bilaterally. His abdomen is obese but soft and nontender with normal bowel sounds. He has chronic venous stasis changes in the pretibial areas bilaterally with intact skin. He was alert and oriented x3 with no focal motor weakness. He was interactive and engaged. 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 use: without longwall headgate operator use Diabetes mellitus complication status: with other specified complication Qualified Code(s): E11.69 - Type 2 diabetes mellitus with other specified complication (6) Hypertension: QUALIFIERS: Hypertension type: essential hypertension Qualified Code(s): I10 - Essential (primary) hypertension PLAN: 60-year-old with an acute bacterial bronchitis with an abnormal CT scan complicated by morbid obesity with untreated sleep apnea and a resolving lactic acidosis in the setting of acute headache, poorly controlled type 2 diabetes, right parotitis, chronic hypertension, and mild resolving hyponatremia. The patient is on day 2 of empiric antibiotics and will plan a 5-day course of treatment. He can transition to oral antibiotics in the next 24 hours if he continues to show clinical improvement. The oral antibiotics would be adequate coverage for his right parotitis-the ceftriaxone should cover oral anaerobes. The patient was encouraged to use lemon drops and manual massage for his right parotid swelling. I did review the CT scan findings with the patient and his at the bedside. I again reviewed the benefits of noninvasive ventilation nocturnally and weight loss with his untreated sleep apnea. There is no need to repeat his lactate level given the resolution over the past 24 hours with supportive care. I will increase his Lantus to 40 units at supper with his poorly controlled sugars. Weight loss would be beneficial for his poorly controlled sugars as well. I will repeat his CBC given his right parotid gland swelling to follow his white blood cell count. I will monitor his BMP with his resolving hyponatremia-supportive care as appropriate. I did add Vicodin 2 tablets every 4 hours as needed for his headache. He will continue with his Lantus 20 units with his hypertension and diabetes. I will continue his routine aerosol treatments with his bacterial bronchitis. The patient is on Eliquis 5 mg twice daily and does not need additional DVT prophylaxis. He is a full code. I did review the plan of care with the patient's at the bedside in the presence of the patient. Charges/Coding Visit Charges Inpatient E&M: 84095 Subs Hosp L3
[2021-03-23 18:56] LABS: Bedside Glucose 337 mg/dL (70-110)
[2021-03-23] MEDS: Atorvastatin Calcium 40 MG Tablet PO (20:54)
[2021-03-23] MEDS: HYDROcodone Bitartrate/Apap 5/325 Tablet PO (20:54)
[2021-03-23 22:26] LABS: Bedside Glucose 256 mg/dL (70-110)
[2021-03-24] VITALS (9 sets, daily range): BP systolic 122–148; BP diastolic 70–79; PULSE 72–88; RESP 16–20; TEMP 36.5–36.8; O2SAT 87–97
[2021-03-24] MEDS: Ipratropium/Albuterol Sulfate 3 ML AMPUL.NEB INHALATION ×3 (01:25→12:54)
[2021-03-24] MEDS: HYDROcodone Bitartrate/Apap 5/325 Tablet PO ×2 (02:34→09:17)
[2021-03-24] MEDS: Levothyroxine 100 MCG Tablet PO (06:13)
[2021-03-24] MEDS: Insulin Lispro 100 UNIT/ML INSULN.PEN SC ×2 (06:24→11:32)
[2021-03-24 06:30] LABS: Bedside Glucose 337 mg/dL (70-110)
[2021-03-24 06:47] LABS: Absolute Lymphocyte Count 0.85 X10^3/uL (0.83-4.51); Absolute Neutrophil Count 2.7 X10^3/uL (2.0-7.7); Basophil# 0.03 X10^3/uL; Basophil% 0.7 % (0-1); Eosinophil# 0.11 X10^3/uL; Eosinophils% 2.6 % (0-5); Hemoglobin 14.1 g/dL (13.0-16.5); Lymphocyte # 0.85 X10^3/ul (0.83-4.51); Lymphocyte % 19.9 % (19-41); Mean Corpuscular Hgb 31.2 pg (27.0-32.0); Mean Corpuscular Volume 97.3 fL (80-94); Mean Platelet Vol. 10.6 fl (6.2-12.0); Monocyte# 0.53 X10^3/uL; Monocyte% 12.4 % (0-10); NRBC Flagged by Analyzer 0 % (0-5); Neutrophil # 2.68 X10^3/uL (2.7-7.7); Neutrophil % 62.5 % (47-70); Platelet Count 151 K/mm3 (150-450); RBC Distribution Width CV 12.8 % (11.6-14.6); Red Blood Count 4.52 M/mm3 (4.6-6.2); White Blood Count 4.3 K/mm3 (4.4-11.0)
[2021-03-24 07:07] LABS: Anion Gap 4 (5-15); BUN 9 mg/dL (7-18); BUN/Creat Ratio 10.5 RATIO (10-20); Calcium,Total 8.2 mg/dL (8.5-10.1); Chloride 100 mmol/L (98-107); Creatinine, Serum 0.86 mg/dL (0.70-1.30); EST Glomerular Filtration Rate 96 mL/min (>60); Est Glom Filt Rate - Afr Amer 117 mL/min (>60); Estimated Creatinine Clearance 91.34 ml/min; Glucose 277 mg/dL (74-106); Potassium 4.5 mmol/L (3.5-5.1); Sodium Level 134 mmol/L (136-145)
[2021-03-24] MEDS: APIXABAN 5 MG TABLET PO (09:12)
[2021-03-24] MEDS: Lisinopril 20 MG Tablet PO (09:12)
--- NOTE | 2021-03-24 11:00 | PCM.DC ---
Discharge Instructions Diet Discharge Diet: No restrictions Activity Discharge Activity: Return to Normal Activity Weight Bearing Status: Weight bearing as tolerated Dressing / Incision Call your doctor if you observe: Fever of 101 or Higher, Numbness or Tingling, Shortness of breath, Dizziness, Chest pain, Increased palpitations (irregular heartbeat) and Calf discomfort Follow Up Care Please Follow Up With: Primary care provider When: Within the next two weeks. Test Results: Test results from this visit will be discussed in further detail at your follow-up appointment, if applicable. Discharge Plan Admission Admit Date/Time: 03/22/21 16:15 Primary Reason for Your Visit: Bronchitis Attending Provider: Jorge Luis Carmen Primary Care Provider: Enrique Otero Chi Discharge Orders/Prescriptions Prescriptions: New amoxicillin-pot clavulanate [Augmentin] 875-125 mg tablet 1 tab PO BID Qty: 10 RF: 0 Continued metformin 500 MG tablet 500 mg PO BIDCM Qty: 60 RF: 0 lisinopril 20 MG tablet 20 mg PO DAILY Qty: 30 RF: 0 levothyroxine 88 MCG tablet 100 mcg PO DAILY@0600 RF: 0 apixaban 5 MG tablet 5 mg PO BID Qty: 120 RF: 3 acetaminophen 325 MG tablet 650 mg PO Q6H PRN PRN (Reason: Pain Score 1-10/Temp > 100.7 F) RF: 0 atorvastatin 40 mg tablet 40 mg DAILY RF: 0 Referrals / Follow Up: Evans Schaefer MD [STAFF PHYSICIAN] - Within 2 Weeks (Evaluation for RO.) Enrique Otero Chi, MD [Primary Care Provider] - Within 2 Weeks Disposition Disposition (needs filled in before D/C Order can be placed): Home, Self Care
--- NOTE | 2021-03-24 11:17 | CASEMGMT ---
PAOLA GUZMAN assessment: Face to Face with patient for initial transition planning/care coordination assessment. PAOLA GUZMAN introduced self and role at [facility], pt voices understanding and consents to assessment. Pt is sitting up on side of bed on room air in no distress. Pt is A/Ox4 and answers all questions appropriately. Pt's is on facetime for the majority of the assessment. Care providers, pharmacy, and demographics verified. Presentation: Pt c/o cough/SOB that started last wednesday Admitting dx: Acute bacterial bronchitis PCP: Branden Specialists: Pt states no current specialists. Preferred [facility]acy: [facility] Insurance: [employer]/[facility] community plan Prescription Benefit: Yes Living Will/HPOA: Pt has LW/HPOA and is aware that they are on file at [facility]. Pt's , Lenard Faulkner, is HPOA. LNOK: Lenard Faulkner, Living Arrangements: Pt states lives with in duplex and states no concerns at home. Pt is independent with ADL's. Transportation: Pt states drives self and states no transportation concerns. DME/HHC: Pt states no current DME or need for DME. Pt states no preference for DME company, if qualifies for home oxygen. Pt states no hx of HHC or SNF. Pt states no concerns with going home at time of discharge. 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 Pt states does not smoke cigarettes or drink ETOH. Pt states no further concerns/needs. CM to follow for home oxygen need and any further discharge planning/needs. Advised pt to ask for CM if any further questions/concerns/needs arise, voices understanding. Pt Goal: Home Plan: [place] PAOLA GUZMAN
--- NOTE | 2021-03-24 11:50 | CASEMGMT ---
Palliative screening tool completed for [employer]. Patient does not meet criteria for palliative consult at this time.
[2021-03-24 11:55] LABS: Bedside Glucose 390 mg/dL (70-110)
--- NOTE | 2021-03-24 12:01 | PHA.DC.MC ---
Pharmacy Service has performed discharge medication reconciliation and counseling for this patient. 1. AUGMENTIN 875MG PO BID X 5 DAYS The patient's discharge medication list was reviewed for discrepancies and discrepancies were resolved. Home Medications lisinopril 20 mg PO DAILY #30 tab 05/05/19 metformin 500 mg PO BIDCM #60 tab 05/05/19 levothyroxine 100 mcg PO DAILY@0600 06/03/20 acetaminophen 650 mg PO Q6H PRN PRN tab 08/30/20 apixaban 5 mg PO BID #120 tab 08/30/20 atorvastatin 40 mg DAILY 03/22/21 amoxicillin-pot clavulanate [Augmentin] 1 tab PO BID #10 tab 03/24/21 The patient was counseled on the following discharge medications and changes in medications for homegoing were reviewed. The Reason for Use, instructions for use, and potential side effects were reviewed for all new medications. The patient's questions regarding all of their medications were answered. The patient was able to verbally demonstrate an understanding of their discharge medications.
--- NOTE | 2021-03-24 12:59 | CASEMGMT ---
Addendum entered by Shamika Bennett 03/24/21 13:21: Call to [place] at [facility] to notify of pt refusing, voices understanding. Caterina GUEVARA CM Addendum entered by Shamika Bennett 03/24/21 13:20: Pt was 87% on room air at rest. Per Nicolas, certified legal secretary specialist, pt also refused to be set up with pulmonary appt at discharge as well. Caterina GUEVARA CM Addendum entered by Shamika Bennett 03/24/21 13:17: Pt is now refusing home oxygen, states that 'those readings are wrong and I know I don't need it.' Pt declines any further discharge planning/needs. Cortes Weeks, and Keira GUEVARA updated, voice understanding. Caterina GUEVARA CM Original Note: Pt qualifies for 2L [place] continuous home oxygen and pt states no preference for DME company. Referral faxed to [facility] and call to [facility] to notify, voices understanding. Caterina GUEVARA CM
--- NOTE | 2021-03-24 13:50 | PCM.DC.SUM ---
Documented by User: Nehemiah LINDO 03/24/21 14:01 Providers Date of Admission: 03/22/21 Primary Care Physician: Dr. Enrique Otero MD Reason For Visit: ACUTE BACTERIAL BRONCHITIS Diagnosis Discharge Diagnosis (1) Acute bacterial bronchitis: Status: Acute Code(s): J20.8 - Acute bronchitis due to other specified organisms; B96.89 - Other specified bacterial agents as the cause of diseases classified elsewhere (2) Morbid obesity with BMI of 50.0-59.9, adult: Status: Acute Code(s): E66.01 - Morbid (severe) obesity due to excess calories; Z68.43 - Body mass index [BMI] 50.0-59.9, adult (3) Obstructive sleep apnea: Status: Chronic Code(s): G47.33 - Obstructive sleep apnea (adult) (pediatric) (4) Headache: Status: Chronic Code(s): R51 - Headache (5) Diabetes mellitus, type II: Status: Chronic Code(s): E11.9 - Type 2 diabetes mellitus without complications Qualifiers: Diabetes mellitus complication status: with other specified complication Diabetes mellitus detention insulin use: without detention use Qualified Code(s): E11.69 - Type 2 diabetes mellitus with other specified complication (6) Hypertension: Status: Chronic Code(s): I10 - Essential (primary) hypertension Qualifiers: Hypertension type: essential hypertension Qualified Code(s): I10 - Essential (primary) hypertension Medications at Discharge Home Medications lisinopril 20 mg PO DAILY #30 tab 05/05/19 metformin 500 mg PO BIDCM #60 tab 05/05/19 levothyroxine 100 mcg PO DAILY@0600 06/03/20 acetaminophen 650 mg PO Q6H PRN PRN tab 08/30/20 apixaban 5 mg PO BID #120 tab 08/30/20 atorvastatin 40 mg DAILY 03/22/21 amoxicillin-pot clavulanate [Augmentin] 1 tab PO BID #10 tab 03/24/21 Hospital Course Summary of Care Provided Minutes Spent on Discharge: 35 Hospital Course: Disposition: Patient to be discharged home, no additional home health care needs with therapies identified. 1) acute bacterial bronchitis Patient reports improvement in shortness of breath from admission. Vital signs stable and patient is afebrile. Currently satting 96% on 3 L. CBC is without leukocytosis. Lactic acid level within normal limits. Patient did qualify for home oxygen,, however denied when offered. Plan; Augmentin initiated at discharge x5 days, follow-up with primary care provider within the next 2 weeks. 2) right sided parotitis CT of the face/sinuses demonstrate right parotitis with chronic right maxillary and ethmoid sinusitis, no evidence of abscess. Inspection of the mouth revealed multiple dental caries. Recommend patient follow-up with primary care provider and dental care provider in addition to completing antibiotic course as above. 3) diabetes mellitus type 2 Continue home diabetic regimen, follow-up with primary care provider within the next 2 weeks. 4) RO Patient has a prior history of being diagnosed with obstructive sleep apnea, however is not compliant with home CPAP machine. Pulmonology referral to Dr. Schaefer included in discharge instructions. Patient seen by Nehemiah Mclain PA-C, under the supervision of Dr. Carmen. Physical Exam Narrative Patient is a 60-year-old male resting in bed, alert and orient x3. Patient reports ongoing right cheek pain and swelling, reports improvement in shortness of breath from admission. Const alert, oriented x3 and no apparent distress HEENT normocephalic and head/scalp atraumatic HEENT Narrative: Right parotid gland swelling as well as multiple dental caries throughout the mouth. Eyes EOMs intact bilaterally and conjunctivae normal Neck no lymphadenopathy, supple and no JVD Resp normal respiratory effort, no retractions, no use of accessory muscles and clear to auscultation bilaterally Cardio regular rate, regular rhythm, no murmurs and no JVD GI normal to inspection, nondistended, normoactive bowel sounds, soft to palpation and non-tender Extremity normal to inspection, full ROM and no clubbing, cyanosis or edema Skin no rashes or lesions noted, no wounds and skin turgor normal Neuro CN's II-XII intact bilaterally Psych affect normal Medical Records Data Medical Nutrition Assessment Dietitian: Nutrition Therapy Diagnosis Start: 03/23/21 12:21 Freq: Status: Active Protocol: Document 03/23/21 12:49 CINDY (Rec: 03/23/21 12:49 CINDY [id number]) Nutrition Malnutrition Evidence of Malnutrition Exists No Clinical Problem Altered Nutrient-Related Laboratory Values Etiology related to DM Signs/Symptoms as evidenced by glucose 312 Status Active Problem Recommendation Dietitian Recommendations/Changes Will change diet to Cardiac / Sodium Restricted / Consistent Carbohydrate Weight / BMI Weight Weight: 374 lb 1.991 oz Body Mass Index (BMI) 55.2 ABG / Lab / Microbiology Data Result Diagrams: 03/24/21 06:34 03/24/21 06:34 Laboratory: Laboratory Results - last 24 hr 03/23/21 18:11: POC Glucose 337 H 03/23/21 20:51: POC Glucose 256 H 03/24/21 06:23: POC Glucose 337 H 03/24/21 06:34: WBC 4.3 L, RBC 4.52 L, Hgb 14.1, Hct 44.0, MCV 97.3 H, MCH 31.2, MCHC 32.0, RDW Std Deviation 46.0 H, RDW Coeff of Kina 12.8, Plt Count 151, MPV 10.6, Immature Gran % (Auto) 1.900 H, Neut % (Auto) 62.5, Lymph % (Auto) 19.9, Major % (Auto) 12.4 H, Eos % (Auto) 2.6, Baso % (Auto) 0.7, Absolute Neuts (auto) 2.7, Absolute Lymphs (auto) 0.85, Nucleated RBC % 0 03/24/21 06:34: Sodium 134 L, Potassium 4.5, Chloride 100, Carbon Dioxide 30.0, Anion Gap 4 L, BUN 9, Creatinine 0.86, Estim Creat Clear Calc 91.34, Est GFR (MDRD) Af Amer 117, Est GFR (MDRD) Non-Af 96, BUN/Creatinine Ratio 10.5, Glucose 277 H, Calcium 8.2 L 03/24/21 11:31: POC Glucose 390 H Microbiology: Microbiology 03/22/21 14:30 Urine, Clean Catch Urine Culture - Preliminary Culture exhibits no growth. 03/22/21 13:15 Mucosa - Nose SARS-CoV-2 Antigen (Rapid) - Final D/C Instructions Discharge Diet: No restrictions Weight Bearing Status: Weight bearing as tolerated Call your doctor if you observe: Fever of 101 or Higher, Numbness or Tingling, Shortness of breath, Dizziness, Chest pain, Increased palpitations (irregular heartbeat) and Calf discomfort Please Follow Up With: Primary care provider When: Within the next two weeks. Meaningful Use Info Meaningful Use Diagnoses (Choose all that apply): None applicable Discharge Plan Admission Admit Date/Time: 03/22/21 16:15 Primary Reason for Your Visit: Bronchitis Attending Provider: Jorge Luis Carmen Primary Care Provider: Enrique Otero Chi Instructions Additional Instructions / Restrictions: Patient Problems: Altered Health Status related to Hospitalization Patient Goals: *Optimal Level of Health *Keep Appointments *Medication Compliance *Remain Safe Discharge Orders/Prescriptions Prescriptions: New amoxicillin-pot clavulanate [Augmentin] 875-125 mg tablet 1 tab PO BID Qty: 10 RF: 0 Continued metformin 500 MG tablet 500 mg PO BIDCM Qty: 60 RF: 0 lisinopril 20 MG tablet 20 mg PO DAILY Qty: 30 RF: 0 levothyroxine 88 MCG tablet 100 mcg PO DAILY@0600 RF: 0 apixaban 5 MG tablet 5 mg PO BID Qty: 120 RF: 3 acetaminophen 325 MG tablet 650 mg PO Q6H PRN PRN (Reason: Pain Score 1-10/Temp > 100.7 F) RF: 0 atorvastatin 40 mg tablet 40 mg DAILY RF: 0 Referrals / Follow Up: Evans Schaefer MD [STAFF PHYSICIAN] - Within 2 Weeks (Evaluation for RO.) Enrique Otero Chi, MD [Primary Care Provider] - 03/26/21 11:20 am Disposition Disposition (needs filled in before D/C Order can be placed): Home, Self Care Documented by User: Dr. Jorge Luis Carmen MD 03/24/21 17:20 Providers Date of Admission: 03/22/21 Date of Discharge: 03/24/21 Reason For Visit: ACUTE BACTERIAL BRONCHITIS Medications at Discharge Home Medications lisinopril 20 mg PO DAILY #30 tab 05/05/19 metformin 500 mg PO BIDCM #60 tab 05/05/19 levothyroxine 100 mcg PO DAILY@0600 06/03/20 acetaminophen 650 mg PO Q6H PRN PRN tab 08/30/20 apixaban 5 mg PO BID #120 tab 08/30/20 atorvastatin 40 mg DAILY 03/22/21 amoxicillin-pot clavulanate [Augmentin] 1 tab PO BID #10 tab 03/24/21 Hospital Course Summary of Care Provided Hospital Course: This patient was seen in conjunction with GUICHO Gallego. I have independently interviewed and examined the patient and reviewed pertinent history, examination findings, laboratory and plan of management. I have reviewed the note and agree with the documented findings with the few additional points. In brief, patient is admitted for 2 to 3 days history of shortness of breath, fever and cough with whitish sputum consistent with acute bacterial bronchiolitis. Pneumonia ruled out. Patient had fever, tachycardia and tachypnea and lactic acidosis consistent with severe sepsis secondary to lower respiratory tract infection/bronchiolitis. Patient was also on Metformin. Chest CTA shows no PE but bronchovascular micronodules and groundglass opacities, largest measuring 13 mm probably infectious bronchiolitis/pneumonitis. He also has right parotitis, tenderness or decreased most probably secondary to right second molar decayed tooth, periodontitis. Initially patient on ceftriaxone and azithromycin and is discharged on Augmentin to complete a total of 7 days. Patient qualifies for oxygen but does not want oxygen and refused it. Other comorbidities include diabetes mellitus type 2, obstructive sleep apnea, noncompliant to CPAP and morbid obesity. Discharge medication reconciliation done. Discharge follow-up instructions completed. Discharge process discussed with the patient and all questions were answered to patient's satisfaction. Total time spent, exact 35 minutes on discharge meds reconciliation, examination, coordination of care with nurses and ancillary staff, review of imaging and blood test and discussion with the patient on follow-up instructions Patient was admitted as inpatient but was discharged because of sooner recovery than expected at time of admission. I have discussed my assessment with GUICHO Gallego and orders have been reviewed. Physical Exam Narrative And has history of obstructive sleep apnea and had CPAP but has not used it because of claustrophobia. Morbid obesity. Shortness of breath is better. Last fever was 100.4 Fahrenheit on 03/22, more than 48 hours. Right parotid gland tenderness has resolved. Physical exam General: Alert, Oriented x3, Cooperative, morbid obesity BMI 55.2 kg/m? HEENT: Atraumatic, PERRLA, EOMI, Normocephalic Oral: Right second molar is decayed, black. Mild thickening of mucosa over molar teeth. No Gingival or Mucosal Lesions/ Ulcerations. Right parotid neck firm, nontender and enlarged Neck: Wide neck, supple, No JVD, Negative Carotid Bruits Lungs: Air entry diminished in bilateral lung bases. No crepitation/rhonchi Cardiovascular: Regular rate, Regular Rhythm, Normal S1, Normal S2, No murmurs Abdomen: Bowel Sounds Present, Soft, Non Tender, Non-Distended : No renal angle tenderness. No suprapubic tenderness. Extremities: No edema, Capillary Refill Less than 3 Seconds Skin: No rashes, No breakdown Musculoskeletal: No Tenderness to Palpation of Joints or Extremities Neurological: Cranial nerves II-XII grossly intact, DTR 2+/4 and Symmetrical, Neuro grossly intact Psych/Mental Status: Normal Affect, Appropriate. ABG / Lab / Microbiology Data Result Diagrams: 03/24/21 06:34 03/24/21 06:34 Discharge Plan Admission Admit Date/Time: 03/22/21 16:15 Primary Reason for Your Visit: Bronchitis Attending Provider: Jorge Luis Carmen Primary Care Provider: Enrique Otero Chi Instructions Additional Instructions / Restrictions: Patient Problems: Altered Health Status related to Hospitalization Patient Goals: *Optimal Level of Health *Keep Appointments *Medication Compliance *Remain Safe Discharge Orders/Prescriptions Prescriptions: New amoxicillin-pot clavulanate [Augmentin] 875-125 mg tablet 1 tab PO BID Qty: 10 RF: 0 Continued metformin 500 MG tablet 500 mg PO BIDCM Qty: 60 RF: 0 lisinopril 20 MG tablet 20 mg PO DAILY Qty: 30 RF: 0 levothyroxine 88 MCG tablet 100 mcg PO DAILY@0600 RF: 0 apixaban 5 MG tablet 5 mg PO BID Qty: 120 RF: 3 acetaminophen 325 MG tablet 650 mg PO Q6H PRN PRN (Reason: Pain Score 1-10/Temp > 100.7 F) RF: 0 atorvastatin 40 mg tablet 40 mg DAILY RF: 0 Referrals / Follow Up: Evans Schaefer MD [STAFF PHYSICIAN] - Within 2 Weeks (Evaluation for RO.) Enrique Otero Chi, MD [Primary Care Provider] - 03/26/21 11:20 am Disposition Disposition (needs filled in before D/C Order can be placed): Home, Self Care Charges/Coding Visit Charges Inpatient E&M: 89963 Disch Hosp
--- NOTE | 2021-03-24 14:01 | CHAPLAIN ---
Type of Pastoral Visit _x__ Initial Visit ___ Follow-up Visit ___ On-call Visit ___ General Patient Visit ___ Spiritual Assessment ___ Family Conference ___ Bereavement ___ Rapid Response ___ Code Blue ___ Other (describe below) Pastoral Care Referral From _x__ Patient ___ Family ___ Nurse ___ Physician ___ [employer] Employee ___ Print Buyer ___ Other (describe below) Sacrament/Intervention _x__ Active listening ___ Anointing ___ Anglican ___ Bereavement ___ Communion _x__ Irish exploration ___ _x__ Life review _x__ Prayer ___ Reconciliation ___ Sacrament of Sick ___ Supportive presence ___ Wedding ___ Other (describe below) Pastoral Comments
--- NOTE | 2021-03-25 13:33 | CASEMGMT ---
PAOLA GUZMAN Discharge Follow-up Phone Call: DERRICK: Altaf Strata: 3 Call Date: 03/25/21 Discharge Date: 03/24/21 Time of Call: 1530 Duration: 1 min Admitting Diagnosis: Acute Bacterial Bronchitis PAOLA GUZMAN attempted to complete follow-up phone call after recent hospitalization. No answer, voice message left with return contact information.
== END 2021-03-24 14:56 | disposition home or self-care (01) | DRG 872 ==
LOC: ED 13:30 → PCU 16:28
PROVIDERS: Internal Medicine; Admitting Provider Internal Medicine; Emergency Provider Emergency Medicine; PCP Family Medicine Geriatric Medicine; Visit Provider Internal Medicine
DX: A41.9 Sepsis, unspecified organism (principal); J21.9 Acute bronchiolitis, unspecified; K11.20 Sialoadenitis, unspecified; K05.30 Chronic periodontitis, unspecified; J32.0 Chronic maxillary sinusitis; J32.2 Chronic ethmoidal sinusitis; B96.89 Other specified bacterial agents as the cause of diseases classified elsewhere; K02.9 Dental caries, unspecified; R65.20 Severe sepsis without septic shock; E87.2 Acidosis; E87.1 Hypo-osmolality and hyponatremia; Z68.43 Body mass index [BMI] 50.0-59.9, adult; G89.29 Other chronic pain; E11.22 Type 2 diabetes mellitus with diabetic chronic kidney disease; N18.1 Chronic kidney disease, stage 1; Z20.822 Contact with and (suspected) exposure to COVID-19; E11.65 Type 2 diabetes mellitus with hyperglycemia; I10 Essential (primary) hypertension; E78.5 Hyperlipidemia, unspecified; E03.9 Hypothyroidism, unspecified; G47.33 Obstructive sleep apnea (adult) (pediatric); E66.01 Morbid (severe) obesity due to excess calories; Z91.19 Patient's noncompliance with other medical treatment and regimen; Z79.01 Long term (current) use of anticoagulants; Z79.84 Long term (current) use of oral hypoglycemic drugs; Z79.890 Hormone replacement therapy; Z79.899 Other long term (current) drug therapy; Z87.01 Personal history of pneumonia (recurrent); Z86.718 Personal history of other venous thrombosis and embolism; Z86.711 Personal history of pulmonary embolism
CPT/HCPCS: 36415; 70486; 71275; 80048; 80053; 81001; 82962; 83605; 84484; 85025; 85610; 85730; 87040; 87086; 87426; 93005; 94640; 97802; 99251; 99284; J7030; Q9967; A4216; G0463; J0696; J2405

== ENCOUNTER → 2021-04-07 11:46 | Outpatient (CLI) | payer BC, MEDICAID, SELFPAY ==
[2021-04-07 12:54] LABS: Absolute Lymphocyte Count 1.28 X10^3/uL (0.83-4.51); Absolute Neutrophil Count 4.2 X10^3/uL (2.0-7.7); Basophil# 0.04 X10^3/uL; Basophil% 0.6 % (0-1); Eosinophil# 0.21 X10^3/uL; Eosinophils% 3.2 % (0-5); Hematocrit 45.5 % (40-54); Lymphocyte # 1.28 X10^3/ul (0.83-4.51); Lymphocyte % 19.5 % (19-41); Mean Corpuscular Hgb 31.4 pg (27.0-32.0); Mean Corpuscular Volume 95.4 fL (80-94); Mean Platelet Vol. 12.1 fl (6.2-12.0); Monocyte# 0.79 X10^3/uL; NRBC Flagged by Analyzer 0 % (0-5); Neutrophil % 64.1 % (47-70); Platelet Count 229 K/mm3 (150-450); RBC Distribution Width CV 12.2 % (11.6-14.6); RBC Distribution Width SD 42.7 fl (35.1-43.9); Red Blood Count 4.77 M/mm3 (4.6-6.2); White Blood Count 6.6 K/mm3 (4.4-11.0)
[2021-04-07 13:02] LABS: ALB/GLOB Ratio 0.9 RATIO (0.9-2.4); AST(SGOT) 117 U/L (15-37); Alanine Aminotransfer ALT/SGPT 178 U/L (16-61); Albumin, Serum 3.2 g/dL (3.2-5.0); Alkaline Phosphatase 155 U/L (45-117); Anion Gap 4 (5-15); BUN 11 mg/dL (7-18); BUN/Creat Ratio 11.7 RATIO (10-20); Calcium,Total 9.2 mg/dL (8.5-10.1); Chloride 100 mmol/L (98-107); Creatinine, Serum 0.94 mg/dL (0.70-1.30); EST Glomerular Filtration Rate 87 mL/min (>60); Est Glom Filt Rate - Afr Amer 105 mL/min (>60); Globulin 3.7 g/dL (2.2-4.2); Glucose 151 mg/dL (74-106); PSA,Total - Annual Screen 0.67 ng/mL (0.00-4.00); Potassium 4.5 mmol/L (3.5-5.1); Protein, Total 6.9 g/dL (6.4-8.2); Sodium Level 136 mmol/L (136-145); Thyroid Stim Hormone (TSH) 2.54 uIU/mL (0.358-3.74)
== END ==
PROVIDERS: PCP Family Medicine Geriatric Medicine; Visit Provider Family Medicine Geriatric Medicine
DX: E11.40 Type 2 diabetes mellitus with diabetic neuropathy, unspecified (principal); I10 Essential (primary) hypertension; Z12.5 Encounter for screening for malignant neoplasm of prostate
CPT/HCPCS: 36415; 80053; 84153; 84443; 85025; G0103

== ENCOUNTER → 2021-04-09 07:37 | Outpatient (CLI) | payer BC, MEDICAID, SELFPAY | PROVIDERS: PCP Family Medicine Geriatric Medicine; Referring Provider Family Medicine Geriatric Medicine; Visit Provider Family Medicine Geriatric Medicine | DX: E24.9 Cushing's syndrome, unspecified (principal) | CPT/HCPCS: 36415; 82533 ==

== ENCOUNTER → 2021-06-30 13:20 | Outpatient (CLI) | payer BC, MEDICAID, SELFPAY ==
[2021-06-30 17:44] LABS: Absolute Lymphocyte Count 1.52 X10^3/uL (0.83-4.51); Absolute Neutrophil Count 5.6 X10^3/uL (2.0-7.7); Basophil# 0.03 X10^3/uL; Basophil% 0.4 % (0-1); Eosinophil# 0.29 X10^3/uL; Eosinophils% 3.5 % (0-5); Hematocrit 47.5 % (40-54); Hemoglobin 15.4 g/dL (13.0-16.5); Lymphocyte # 1.52 X10^3/ul (0.83-4.51); Lymphocyte % 18.2 % (19-41); Mean Corp Hgb Conc 32.4 g/dL (32-36); Mean Corpuscular Volume 98.8 fL (80-94); Mean Platelet Vol. 11.5 fl (6.2-12.0); Monocyte# 0.89 X10^3/uL; Monocyte% 10.7 % (0-10); NRBC Flagged by Analyzer 0 % (0-5); Neutrophil # 5.58 X10^3/uL (2.7-7.7); Neutrophil % 66.8 % (47-70); Platelet Count 256 K/mm3 (150-450); RBC Distribution Width CV 13.3 % (11.6-14.6); RBC Distribution Width SD 48.7 fl (35.1-43.9); Red Blood Count 4.81 M/mm3 (4.6-6.2); White Blood Count 8.3 K/mm3 (4.4-11.0)
[2021-06-30 18:54] LABS: ALB/GLOB Ratio 0.8 RATIO (0.9-2.4); AST(SGOT) 16 U/L (15-37); Alanine Aminotransfer ALT/SGPT 29 U/L (16-61); Albumin, Serum 3.3 g/dL (3.2-5.0); Alkaline Phosphatase 103 U/L (45-117); Anion Gap 9 (5-15); BUN 25 mg/dL (7-18); BUN/Creat Ratio 17.6 RATIO (10-20); Calcium,Total 9.1 mg/dL (8.5-10.1); Chloride 100 mmol/L (98-107); Creatinine, Serum 1.42 mg/dL (0.70-1.30); EST Glomerular Filtration Rate 54 mL/min (>60); Est Glom Filt Rate - Afr Amer 65 mL/min (>60); Globulin 3.9 g/dL (2.2-4.2); Glucose 127 mg/dL (74-106); Potassium 4.5 mmol/L (3.5-5.1); Protein, Total 7.2 g/dL (6.4-8.2); Sodium Level 137 mmol/L (136-145); Thyroid Stim Hormone (TSH) 2.94 uIU/mL (0.358-3.74)
== END ==
PROVIDERS: PCP Family Medicine Geriatric Medicine; Visit Provider Family Medicine Geriatric Medicine
DX: E11.65 Type 2 diabetes mellitus with hyperglycemia (principal); I10 Essential (primary) hypertension
CPT/HCPCS: 36415; 80053; 84443; 85025

== ENCOUNTER 2022-08-20 04:17 | Observation (INO) | payer OTHER, MEDICAID, SELFPAY ==
[2022-08-20] VITALS (14 sets, daily range): BP systolic 111–173; BP diastolic 71–102; PULSE 77–105; RESP 15–26; TEMP 36.6–39.5; O2SAT 89–100; BMI 53.5; BMI 49.8
--- OUTSIDE RECORDS SUMMARY | 2022-08-20 04:24 | XMS RPT_ITS | CCD ---
:1960 Author Organization [facility] Care Team Providers Name Role Phone Dillon Marroquin Primary Care Provider CARA HARO, DR LANTIGUA Primary Care Physician Medications Current Medications Medication Drug Class(es) Dates Sig (Normalized) Sig (Orig inal) albuterol 0.833 mg/ml / ipratropium bromide 0.167 mg/m l inhalant solution Anticholinergic, Start: take 3 mL by ipratropium-albut (1 source) beta2-Adrenergic 03-17-2019 inhalation every wisam (D UONEB) Agonist four hours as 0.5-2.5 (3) needed MG/3ML SOLN nebulizer solution Inhale 3 mLs into the lungs every 4 hours as needed for Shortness o f Breath 360 mL 0 03/17/2019 Acti ve baclofen 10 mg oral tablet gamma-Aminobutyri Start: take 1 ta blet by baclofen (1 source) c Acid-ergic 01-25-2019 mouth three times (LIORESAL) 10 MG Agonist daily tablet TAKE 1 TABLET BY MOUTH 3 TIMES A DAY 0 01/25/2019 Acti ve bisoprolol fumarate 5 mg / hydroCHLOROthiazide 6.25 mg oral tablet Thiazide Start: take 1 tablet by bisoprolol-hydroc (1 source) Diuretic, 01-11-2018 mouth once daily hlorothiazi de beta-Adrenergic (ZIAC) 5-6.2 5 MG Fernanda per tablet Indications: Essential hypertension Ta ke 1 tablet by christy th daily 30 tablet 0 01/11/2018 Acti ve levothyroxine sodium 0.088 mg oral tablet l-Thyroxine Start: take 1 tablet by levothyroxine (1 source) 01-11-2018 mouth once daily (SYNTHROID) 88 MCG tablet Take 1 tablet by mouth daily 30 tablet 0 01/11/2018 Acti ve lidocaine 0.04 mg/mg medicated patch Antiarrhythmic, Start: lidocaine 4 % (1 source) Amide Local 03-18-[address] 2 patches onto the skin daily 10 patch 0 03/18/2019 Acti ve lisinopril 20 mg oral tablet Angiotensin Start: take 1 table t by lisinopril (1 source) Converting Enzyme 03-18-2019 mouth once daily (PRINI JUAN MANUEL;ZESTRIL Inhibitor ) 20 MG tablet Take 1 tablet b y mouth daily 30 tablet 3 03/18/2019 Acti ve metFORMIN hydrochloride 500 mg oral tablet Biguanide Start: take 1 tablet by metFORMIN (1 source) 03-17-2019 mouth twice daily (GLUCOPHAG E) 500 at mealtime MG tablet Take 1 tablet by mouth 2 times daily (wi th meals) 180 tabl et 1 03/17/2019 Active naproxen 500 mg oral tablet Nonsteroidal Start: 11-26-2021 naproxen 500 mg (1 source) Anti-inflammatory End: 12-01-2021 oral ta blet Dose Drug : 500 mg = 1 tab(s), Oral, BID, X 5 day(s) , # 10 tab(s), 0 Refill(s), 12/01/21 20:11: 00 EDT, Ankle spra in Start Date: 11/26/21 Stop Date: 12/01/21 Status: Ordered Problems Active Problems Problem Classification Problem Date Documented Date Ep isodic/Chronic Diabetes mellitus without complication Type 2 diabetes 03-15-2019 Chronic (1 source) mellitus; Translations: [New onset type 2 diabetes mellitus] Essential hypertension Hypertensive Onset: 03-20-2015 Chron ic (1 source) disorder; 03-20-2015 Translations: [Hypertension] Sprains and strains Sprain of ankle; Onset: Epis odic (1 source) Translations: 11-26-2021 [Sprain of unspecified ligament of unspecified ankle, initial encounter] Thyroid disorders Acquired Onset: 09-23-2015 Chronic (1 source) hypothyroidism; 09-23-2015 Translations: [Hypothyroidism (acquired)] Past or Other Problems Problem Classification Problem Date Documented Date Ep isodic/Chronic Conditions associated with dizziness or vertigo Benign paroxysma l Onset: 10-01-2015 Episodic (1 source) positional 10-01-2015 vertigo; Translations: [BPPV (benign paroxysmal positional vertigo)] 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 Left VM [facility] requesting callback to office. 36 Called patient back to advis e ED. No answer. LVM requesting patient to call back [facility] office. 36 S: Patient spoke with [facility] nurse helga laguna Pt states legs have been very weak [facility] B: Onset couple months A: Pt having bilateral leg weakness. Pt has peripheral neuropathy that is getting worse and going for a few months. Neuropathy h as been evaluated by a provider but states weakness with it is new for a few months. Pt states lost balance and couldn't get his legs back underneath him at first. Pt able walk currently. Pt denies leg pain. Pt states did stumble due to weakness and said hit hea d but did not lose consciousness. Denies any wo unds to head. Pt did not get evaluated. Occurred x 4 days ago. Pt not on blood thinner. Pt denies any new w eakness or numbness besides from hx of peripheral neuropathy. Pt denies chest pain or shortness of jose miguel ath. Pt speaking in full sentences. No wheezing audible application processor. Speech clear. Pt was seeing in [place]. Unsure when last saw him. Pt is out of BP medications x couple months. R: Pt advised to be seen today for symptoms. Pt declin ed stating he cant be seen till 07/29/22. Pt advised needs see n today and advising at least UC for a provider to look at him and take vitals such as BP. Pt verbalized understanding. Pt scheduled for soonest new patient he is able to anupama e on 07/29/22. Patient understands care advice. No further needs at thi s time. Patient instructed to call back with new or worsening symptoms. Reason for Disposition MODERATE weakness (i.e., interferes with work, s chool, normal activities) and persists > 3 days Protocols used: Weakness (Generalized) and Fatigue-[place] LT-[place] 36 S: [facility] with complaint of Pt states legs Normal [facility] have been very weak B: Onset of symptoms unknown A: No contact. Note states P t states legs have been very weak. New pt . Last office visit over three years ago R: Left voice message for patient to call the office i f assistance is still needed. XR ANKLE AND FOOT 6 VIEWS RIGHT on XR ANKLE AND FOOT 6 ORIGINAL Normal [facility] VIEWS RIGHT EXAMINATION: ([place]) 6 x-ray views of the right foot and the right ankle COMPARISON: None. HISTORY: ORDERING SYSTEM PROVIDED HISTORY: Reason for Exam: pain FINDINGS: No acute fracture or dislocation. The mortise joint an d joints of the foot are unremarkable. Superficial soft tissues normal. Sma ll plantar calcaneal spur noted. IMPRESSION: No acute fracture or dislocation. I have personally reviewed the images of this examinat ion and agree with the resident's finding and interpretation. Interpreted by: Brandon Baxter MD Preliminary Report By: Maxwell Johnson Electronically signed By Brandon Baxter MD Dictated Date: 11/26/2021 7:42:32 PM Prelim Date: 11/26/2021 7:44:57 PM Sign Date: 11/26/2021 7:51:34 PM Ordering Provider: JONN STOTU MRI Up Ext Joint w/o Contrast Right on 02-12-2020 MRI Up Ext Joint w/o Patient Name: CASSI FAULKNER V Normal [facility] Contrast Right MRI Exam Date/Time 02/12/2020 07:26:00 EDT Exam MRI Up Ext Joint w/o Contrast Right Ordering Physician GUICHO GOODMAN MICHELLE Accession Number [id number] CPT4 Codes 59755 () Reason For Exam Impingement syndrome of Rt.shoulder Report Exam Type: MRI Up Ext Joint w/o Contrast Right Exam Date and Time: 02/12/2020 7:26 AM EDT Demographics: Gender: Male; Age: 59 years Indication: Right shoulder pain; Comparison: None available TECHNIQUE: MRI of the right shoulder was performed using a standa rd non-contrast protocol in three planes. FINDINGS: GLENOHUMERAL JOINT and OSSEOUS STRUCTURES: High right humeral head. Mild joint effusion. No acute fracture, Hill-Sachs deformity or osseous Bankart defect. Partia l thickness cartilage loss with small marginal osteophytes. LABRUM: No evidence of labral tear by non-arthrogram MRI. ROTATOR CUFF: Complete (full-thickness, full width) tears of the sup raspinatus and infraspinatus with medial tendon retraction to the lev el of the acromioclavicular joint measuring 36 mm. Full thicknes s tear of the superior half of the subscapularis at the insertion. BICEPS TENDON and ROTATOR INTERVAL: Long head biceps tendon: Medially dislocated. No tendi nosis or tendon tear. No tenosynovitis. Rotator interval: Fat in the rotator interval is prese rved. MUSCLE BULK: Rotator cuff musculature is normal in bulk and signal without edema or atrophy. ACROMION and ACROMIOCLAVICULAR JOINT: Moderate acromioclavicular joint osteoarthritis. Small subacromial spur. No os acromiale. SUBACROMIAL-SUBDELTOID BURSA: Fluid extends into the bursa from the full-thickness r otator cuff tear OTHER: No mass effect in the spinoglenoid notch, suprascapula r notch or quadrilateral space. IMPRESSION: 1. Complete tears of the supraspinatus and infraspinat us with medial tendon retraction to the level of the acromioclavicula r joint. 2. Full thickness tear of the superior half of the sub scapularis at the insertion. 3. Medially dislocated long head biceps tendon. 4. Mild glenohumeral and moderate acromioclavicular os teoarthritis. Report Dictated on Final Dictated: 02/12/2020 8:01 am Dictating Physician: MD MADISON NEIL Signed Date and Time: 02/12/2020 8:33 am Signed by: MD MADISON NEIL Transcribed Date and Time: 02/12/2020 8:02 MRI Upper Extremity Right W LOLA paez on 02-12-2020 Patient Name: CASSI FAULKNER V FIN: [place], [place] [id number] ---MRI--- Exam Date/Time 02/12/2020 07:26 :00 EDT Exam MRI Up Ext Joint w/o Contrast Right Ordering Physician GUICHO GOODMAN MICHELLE Accession Number [id number] CPT4 Codes 00622 () Reason For Exam Impingement syndrome of Rt.shoulder Report Exam Type: MRI Up Ext Joint w/o Contrast Right Exam Date and Time: 02/12/2020 7:26 AM EDT Demographics: Gender: Male; Age: 59 years Indication: Right shoulder pain; Comparison: Non e available TECHNIQUE: MRI of the right shoulder was performed using a standard non-contrast protocol in th ree planes. FINDINGS: GLENOHUMERAL JOINT and OSSEOUS STRUCTURES: High right humeral head. Mild joint effusi on. No acute fracture, Hill-Sachs deformity or osseous Ban kart defect. Partial thickness cartilage loss with small marginal osteophytes. LABRUM: No evidence of labral te ar by non-arthrogram MRI. ROTATOR CUFF: Complete (full-thickness, full width) tears of the supraspinatu s and infraspinatus with medial tendon retraction to the level of the acromioclavicular joint measuring 36 mm. Full thickness tear of the superior half of the subscapular is at the insertion. BICEPS TENDON and ROTATOR INTERVAL: Long head biceps tendon: Medially dislocated. No tendinosis or tendon tear. No tenosynovitis. Rotator interval: Fat i n the rotator interval is preserved. MUSCLE BULK: Rotato r cuff musculature is normal in bulk and signal without edema or atrophy. ACROMION and ACROMIOCLAVICULAR JOINT : Moderate acromioclavicular joint osteoarthritis. Small subacromial spur. No os acromiale. SUBACROMIAL-SUBDELT OID BURSA: Fluid extends into the bursa from the full-thickness rotator cuff tear OTHER: No mass effect in the spinoglenoid notch, suprascapular notch or quadrilateral space. IMPRESSION: 1. Complete tears of the supraspinatus and infraspinatus with medial tendon retraction to the level of the acromioclavicular joint . 2. Full thickness tear of the superior half of the subscapularis at the insertion. 3. Medially dislocated long head biceps tendon. 4. Mild glenohumeral and mode rate acromioclavicular osteoarthritis. Report Dictated on --- Final --- Dictated: 02/12/2020 8:01 am Dictating Physician: MD MADISON NEIL Signed Date and Time: 02/12/2020 8:33 am Signed by: MD MADISON NEIL Transcribed Date and Time: 02/12/20 8:02 Brandin, [facility] Incoming Radiology Results From [facility] - 8:34 AM EDT [place], [place] Patient Name: CASSI FAULKNER V ---MRI--- Exam Date/Time 02/12/2020 07:26:00 EDT Exam MRI Up Ext Joint w/o Contrast Right Ordering Physician GUICHO GOODMAN MICHELLE Accession Number [id number] CPT4 Codes 81847 () Reason For Exam Impingement syndrome of Rt.shoulder Report Exam Type: MRI Up Ext Joint w/o Contrast Right Exam Date and Time: 02/12/2020 7:26 AM EDT Demographics: Gender: Male; Age: 59 years Indication: Right shoulder pain; Comparison: None available TECHNIQUE: MRI of the right shoulder was performed using a standa rd non-contrast protocol in three planes. FINDINGS: GLENOHUMERAL JOINT and OSSEOUS STRUCTURES: High right humeral head. Mild joint effusion. No acute fracture, Hill-Sachs deformity or osseous Bankart defect. Partia l thickness cartilage loss with small marginal osteophytes. LABRUM: No evidence of labral tear by non-arthrogram MRI. ROTATOR CUFF: Complete (full-thickness, full width) tears of the sup raspinatus and infraspinatus with medial tendon retraction to the lev el of the acromioclavicular joint measuring 36 mm. Full thicknes s tear of the superior half of the subscapularis at the insertion. BICEPS TENDON and ROTATOR INTERVAL: Long head biceps tendon: Medially dislocated. No tendi nosis or tendon tear. No tenosynovitis. Rotator interval: Fat in the rotator interval is prese rved. MUSCLE BULK: Rotator cuff musculature is normal in bulk and signal without edema or atrophy. ACROMION and ACROMIOCLAVICULAR JOINT: Moderate acromioclavicular joint osteoarthritis. Small subacromial spur. No os acromiale. SUBACROMIAL-SUBDELTOID BURSA: Fluid extends into the bursa from the full-thickness r otator cuff tear OTHER: No mass effect in the spinoglenoid notch, suprascapula r notch or quadrilateral space. IMPRESSION: 1. Complete tears of the supraspinatus and infraspinat us with medial tendon retraction to the level of the acromioclavicula r joint. 2. Full thickness tear of the superior half of the sub scapularis at the insertion. 3. Medially dislocated long head biceps tendon. 4. Mild glenohumeral and moderate acromioclavicular os teoarthritis. Report Dictated on --- Final --- Dictated: 02/12/2020 8:01 am Dictating Physician: MD MADISON NEIL Signed Date and Time: 02/12/2020 8:33 am Signed by: MD MADISON NEIL Transcribed Date and Time: 02/12/2020 8:02 Glucose,Bedside on 03-17-2019 Glucose [Mass/Vol] 124 mg/dL High 70-100 [facility] Comment on above: Result Comment: Test perform ed by glucose meter. Results may be 10%-15% lower than serum/plasma values. (C ILO ID [id number]) Performed By: #### BGLU #### [facility] [address] [address] Glucose [Mass/Vol] 150 mg/dL High 70-100 [facility] Comment on above: Result Comment: Test perform ed by glucose meter. Results may be 10%-15% lower than serum/plasma values. (C LIO ID [id number]) Performed By: #### BGLU #### [facility] [address] [address] CR Chest Portable on 03-16-2019 CR Chest Portable Patient Name: CASSI FAULKNER [facility] Diagnostic Radiology Exam Date/Time 03/16/2019 16:45:39 EDT Exam CR Chest Portable Ordering Physician DO LOPEZ KATHRYN C Accession Number [id number] CPT4 Codes 07720 () Reason For Exam line placement Report Examination: Portable chest Indication: line placement Findings: Left arm PICC line tip overlies the region of the cavo atrial junction. There is no focal consolidation, sizable pleural effus ion or pneumothorax. The cardiac silhouette and mediastinum are within norm al limits. Small osteophytes of the spine are present at multiple levels. Impression: Left arm PICC line is radiographically in satisfactory position. Report Dictated on Final Dictated: 03/16/2019 4:56 pm Dictating Physician: MD OROPEZA KRIKOR Signed Date and Time: 03/16/2019 4:58 pm Signed by: MD OROPEZA KRIKOR Transcribed Date and Time: 03/16/2019 4:56 CULTURE ANAEROBE on 03-16-2019 CULTURE ANAEROBE CULTURE ANAEROBE --> Status: F Normal [facility] No growth of anaerobes at 5 days. Comment on above: Order Comment: Specimen stacy ected in O.R.; received on swab. Performed By: #### HEMDF, BM P3, CRP2, ESR #### [facility] [address] [place] [address] Glucose,Bedside on 03-16-2019 Glucose [Mass/Vol] 131 mg/dL High 70-100 [facility] Comment on above: Result Comment: Test perform ed by glucose meter. Results may be 10%-15% lower than serum/plasma values. (C LIO ID [id number]) Performed By: #### BGLU #### [facility] [id number] [place] [address] Glucose [Mass/Vol] 145 mg/dL High 70-100 [facility] Comment on above: Result Comment: Test perform ed by glucose meter. Results may be 10%-15% lower than serum/plasma values. (C LIO ID [id number]) Performed By: #### BGLU #### [facility] [id number] [place] [address] Glucose [Mass/Vol] 161 mg/dL High 70-100 [facility] Comment on above: Result Comment: Test perform ed by glucose meter. Results may be 10%-15% lower than serum/plasma values. (C LIO ID [id number]) Performed By: #### BGLU #### [id number] [place] [address] Glucose [Mass/Vol] 173 mg/dL High 70-100 [facility] Comment on above: Result Comment: Test perform ed by glucose meter. Results may be 10%-15% lower than serum/plasma values. (C LIO ID [id number]) Performed By: #### BGLU #### [employer] [id number] [place] [address] Echo 2D/3D [facility] w/wo Contrast on 019 Echo Patient Name: CASSI FAULKNER V Normal [facility] 2D/3D [facility] w/wo System Contrast Ultrasound Exam Date/Time 03/15/2019 09:28:23 EDT Exam Echo 2D/3D [facility] w/wo Contrast Ordering Physician MD FATEMEH, TITO Accession Number [id number] Reason For Exam endocarditis, bacteremia Addendum TRANSESOPHAGEAL ECHOCARDIOGRAM (AMENDED REPORT ) PATIENT: Cassi Faulkner V STUDY DATE: 03/15/2019 : 1960 AGE: 58 HT/WT: 175.3 cm (69 161.4 kg (355 in) lb) GENDER: M BP: 144 / 82 LOCATION: [facility] PATIENT Inpatient [facility] STATUS: *ORDERING PHYSICIAN: * Tito Wang *RN: * Frieda Vargas *READING PHYSICIAN: * Janeen Hernadez *WELDER SETTER RESISTANCE MACHINE: * Sabina Land, CCT --- INDICATIONS: Endocarditis, Bacteremia. --- CONCLUSIONS SUMMARY: 1. Left ventricle: Systolic function is normal. 2. Left atrium: No evidence of thrombus in the atrial cavity or appendage. 3. Atrial septum: No evidence of patent foramen ovale or atrial septal defect. 4. Mitral valve: No evidence of vegetation. 5. Aortic valve: No evidence of vegetation. 6. Tricuspid valve: No evidence of vegetation. 7. Pulmonic valve: No evidence of vegetation. 8. No vegetations or other evidence for infectious end ocarditis. No significant valve disease. --- STUDY DATA: Transesophageal echocardiography was perfo rmed. Procedure: Initial setup. Surface ECG leads, blood pressure measu rements, and pulse oximetric signals were monitored. Image quality was ex cellent. A transesophageal probe was inserted by the attending ca rdiologist without difficulty. Complete 2D, limited spectral Doppler, and color flow Doppler images were acquired and archived for [facility] [employer] and are available for subsequent review. Study status: Routine. Patient stat us: Inpatient. Location: [facility] laboratory. Consent: The risks, benefits , and alternatives to the procedure were explained to the patient and inform ed consent was obtained. Administered medications: Propofol. --- FINDINGS LEFT VENTRICLE: The cavity size is normal. Wall thickn ess is normal. Systolic function is normal. RIGHT VENTRICLE: The cavity size is normal. Wall thick ness is normal. Systolic function is normal. LEFT ATRIUM: No evidence of thrombus in the atrial cav ity or appendage. RIGHT ATRIUM: The atrium is normal in size. ATRIAL SEPTUM: No evidence of patent foramen ovale or atrial septal defect. No evidence of interatrial shunt by color Doppler or w ith injection of agitated saline contrast. There is no evidence of righ t to left shunting with injection of agitated saline contrast. MITRAL VALVE: Structurally normal valve. No evidence o f vegetation. Doppler: There is trivial, less than 1+ regurgitation. AORTIC VALVE: Structurally normal valve. Trileaflet. N o evidence of vegetation. Doppler: There is no stenosis. There is tr ivial, less than 1+ regurgitation. TRICUSPID VALVE: Structurally normal valve. No evidenc e of vegetation. Doppler: There is trivial, less than 1+ regurgitation. PULMONIC VALVE: Structurally normal valve. No evidence of vegetation. Doppler: There is trivial, less than 1+ regurgitation. AORTA: The aortic root and ascending aorta are normal in size. The visualized portions of the arch and descending aorta are normal i n size. PERICARDIUM: There is no pericardial effusion. (AMENDED REPORT ) Electronically signed by Janeen Hernadez 03/15/2019 11:23 Final Addendum Signed Date and Time: 03/15/2019 11:23 am Signed by: MD HERNADEZ GABRIELA Report TRANSESOPHAGEAL ECHOCARDIOGRAM PATIENT: Cassi Faulkner V STUDY DATE: 03/15/2019 : 1960 AGE: 58 HT/WT: 175.3 cm (69 161.4 kg (355 in) lb) GENDER: M BP: 144 / 82 LOCATION: [facility] PATIENT Inpatient [facility] STATUS: *ORDERING PHYSICIAN: * Tito Wang *RN: * Frieda Vargas *READING PHYSICIAN: * Janeen Hernadez *WELDER SETTER RESISTANCE MACHINE: * Sabina Land [facility] --- INDICATIONS: Endocarditis, Bacteremia. --- CONCLUSIONS SUMMARY: 1. Left ventricle: Systolic function is normal. 2. Left atrium: No evidence of thrombus in the atrial cavity or appendage. 3. Atrial septum: No evidence of patent foramen ovale or atrial septal defect. 4. Mitral valve: No evidence of vegetation. 5. Aortic valve: No evidence of vegetation. 6. Tricuspid valve: No evidence of vegetation. 7. Pulmonic valve: No evidence of vegetation. 8. No vegetations or other evidence for infectious end ocarditis. No significant valve disease. --- STUDY DATA: Transesophageal echocardiography was perfo rmed. Procedure: Initial setup. Surface ECG leads, blood pressure measu rements, and pulse oximetric signals were monitored. Image quality was ex cellent. A transesophageal probe was inserted by the attending ca rdiologist without difficulty. Complete 2D and color flow Doppler images were acquired and archived for permanent storage and are available for s ubsequent review. Study status: Routine. Patient status: Inpatient. Location: [facility] laboratory. Consent: The risks, benefits, and alternatives to the procedure were explained to the patient and informed consent was obta ined. Administered medications: Propofol. --- FINDINGS LEFT VENTRICLE: The cavity size is normal. Wall thickn ess is normal. Systolic function is normal. RIGHT VENTRICLE: The cavity size is normal. Wall thick ness is normal. Systolic function is normal. LEFT ATRIUM: No evidence of thrombus in the atrial cav ity or appendage. RIGHT ATRIUM: The atrium is normal in size. ATRIAL SEPTUM: No evidence of patent foramen ovale or atrial septal defect. No evidence of interatrial shunt by color Doppler or w ith injection of agitated saline contrast. There is no evidence of righ t to left shunting with injection of agitated saline contrast. MITRAL VALVE: Structurally normal valve. No evidence o f vegetation. Doppler: There is trivial, less than 1+ regurgitation. AORTIC VALVE: Structurally normal valve. Trileaflet. N o evidence of vegetation. Doppler: There is no stenosis. There is tr ivial, less than 1+ regurgitation. TRICUSPID VALVE: Structurally normal valve. No evidenc e of vegetation. Doppler: There is trivial, less than 1+ regurgitation. PULMONIC VALVE: Structurally normal valve. No evidence of vegetation. Doppler: There is trivial, less than 1+ regurgitation. AORTA: The aortic root and ascending aorta are normal in size. The visualized portions of the arch and descending aorta are normal i n size. PERICARDIUM: There is no pericardial effusion. Electronically signed by Janeen Hernadez 03/15/2019 09:49 Final Dictated: 03/15/2019 9:49 am Dictating Physician: MD HERNADEZ GABRIELA Signed Date and Time: 03/15/2019 9:49 am Signed by: MD HERNADEZ GABRIELA Glucose,Bedside on 03-15-2019 Glucose [Mass/Vol] 136 mg/dL High 70-100 [facility] Online System Comment on above: Result Comment: Test perform ed by glucose meter. Results may be 10%-15% lower than serum/plasma values. (C LIO ID [id number]) Performed By: #### BGLU #### [id number] [place] [address] Glucose [Mass/Vol] 134 mg/dL High 70-100 [facility] Comment on above: Result Comment: Test perform ed by glucose meter. Results may be 10%-15% lower than serum/plasma values. (C LIO ID [id number]) Performed By: #### HEMDF, BM P3, CRP2, ESR #### [facility] [address] [place] [address] Glucose [Mass/Vol] 150 mg/dL High 70-100 [facility] Comment on above: Result Comment: Test perform ed by glucose meter. Results may be 10%-15% lower than serum/plasma values. (C LIO ID [id number]) Performed By: #### HEMDF, BM P3, CRP2, ESR #### [facility] [address] [place] [address] CULT./ST. BACTERIA on 03-14-2019 CULT./ST. STAIN GRAM --> Status: F Normal Sum ma BACTERIA Moderate polymorphonuclear cells/lpf. Health No organisms seen. System No organisms seen. 1 Organism Staphylococcus aureus Rare PBP2a not performed due to insufficient growth. -- 1 Organism -- Antibiotic Result Intrp -- Clindamycin(WILL) = 0.25 S Daptomycin(WILL) = 0.25 S Doxycycline(WILL) <= 0.5 S Gentamicin(WILL) <= 0.5 S Inducible Clindamycin Resistant(WILL)Neg Neg Linezolid(WILL) = 2 S Nafcillin/Oxacillin(WILL) = 1 S Rifampin(WILL) <= 0.5 S Tigecycline(WILL) <= 0.12 S Trimeth/Sulfa(WILL) <= 10 S Vancomycin(WILL) <= 0.5 S Comment on above: Order Comment: Specimen stacy ected in O.R.; received on swab. Performed By: #### HEMDF, BM P3, CRP2, ESR #### [facility] [address] [place] [address] Glucose,Bedside on 03-14-2019 Glucose [Mass/Vol] 174 mg/dL High 70-100 [facility] Comment on above: Result Comment: Test perform ed by glucose meter. Results may be 10%-15% lower than serum/plasma values. (C LIO ID [id number]) Performed By: #### HEMDF, BM P3, CRP2, ESR #### [facility] [address] [place] [address] Glucose [Mass/Vol] 163 mg/dL High 70-100 [facility] Comment on above: Result Comment: Test perform ed by glucose meter. Results may be 10%-15% lower than serum/plasma values. (C LIO ID [id number]) Performed By: #### HEMDF, BM P3, CRP2, ESR #### [facility] [address] [place] [address] Glucose [Mass/Vol] 154 mg/dL High 70-100 [facility] Comment on above: Result Comment: Test perform ed by glucose meter. Results may be 10%-15% lower than serum/plasma values. (C LIO ID [id number]) Performed By: #### HEMDF, BM P3, CRP2, ESR #### [facility] [address] [place] [address] Glucose [Mass/Vol] 161 mg/dL High 70-100 [facility] Comment on above: Result Comment: Test perform ed by glucose meter. Results may be 10%-15% lower than serum/plasma values. (C LIO ID [id number]) Performed By: #### HEMDF, BM P3, CRP2, ESR #### [facility] [address] [place] [address] Hemogram w/ Autodiff on 03-14-2019 Abs Baso Cnt 0.0 10*3/uL Normal 0.0-0.2 [facility] Sy stem Comment on above: Performed By: #### HEMDF, BM P3, CRP2, ESR #### [facility] [address] [place], [place] Abs Neutrophile Cnt 7.7 10*3/uL High 1.8-7.0 [facility] Comment on above: Performed By: #### HEMDF, BM P3, CRP2, ESR #### [facility] [address] [place], [place] Basophils/100 WBC (Bld) 0.2 % Normal 0.0-2.0 [facility] Comment on above: Performed By: #### HEMDF, BM P3, CRP2, ESR #### [place] [address] [address] [place], [place] Eosinophils (Bld) [#/Vol] 0.1 10*3/uL Normal 0.0-0.5 [facility] Comment on above: Performed By: #### HEMDF, BM P3, CRP2, ESR #### [facility] [address] [place], [place] Eosinophils/100 WBC (Bld) 0.8 % Low 1.0-6.0 [facility] Comment on above: Performed By: #### HEMDF, BM P3, CRP2, ESR #### [place] [address] [address] [place], [place] Erythrocyte distribution width (RBC) 15.6 % High 11.5 -14.5 [facility] [Ratio] Comment on above: Performed By: #### HEMDF, BM P3, CRP2, ESR #### [facility] [address] [place], [place] Granulocytes/100 WBC (Bld) 77.6 % Normal 40.0-80.0 [facility] Comment on above: Performed By: #### HEMDF, BM P3, CRP2, ESR #### [facility] [address] [place], [place] Hematocrit (Bld) [Volume fraction] 32.8 % Low 40.0-5 2.0 [facility] Comment on above: Performed By: #### HEMDF, BM P3, CRP2, ESR #### [place] [address] [address] [place], [place] Hemoglobin (Bld) [Mass/Vol] 11.3 g/dL Low 13.0-18.0 [facility] Comment on above: Performed By: #### HEMDF, BM P3, CRP2, ESR #### [place] [address] [address] [place], [place] Lymphocytes (Bld) [#/Vol] 1.0 10*3/uL Normal 1.0-4.3 [facility] Comment on above: Performed By: #### HEMDF, BM P3, CRP2, ESR #### [place] [address] [address] [place], [place] Lymphocytes/100 WBC (Bld) 9.9 % Low 20.0-40.0 [facility] Comment on above: Performed By: #### HEMDF, BM P3, CRP2, ESR #### [place] [address] [address] [place], [place] MCH (RBC) [Entitic mass] 31.4 pg Normal 26.0-34.0 [facility] Comment on above: Performed By: #### HEMDF, BM P3, CRP2, ESR #### [address] [address] [place], [place] MCHC (RBC) [Mass/Vol] 34.4 % Normal 32.0-36.0 [facility] Comment on above: Performed By: #### HEMDF, BM P3, CRP2, ESR #### [place] [address] [address] [place], [place] MCV (RBC) [Entitic vol] 91.3 fL Normal 80.0-98.0 [facility] Comment on above: Performed By: #### HEMDF, BM P3, CRP2, ESR #### [place] [address] [address] [place], [place] Monocytes (Bld) [#/Vol] 1.1 10*3/uL High 0.0-0.8 [facility] Comment on above: Performed By: #### HEMDF, BM P3, CRP2, ESR #### [place] [address] [address] [place], [place] Monocytes/100 WBC (Bld) 11.5 % High 2.0-10.0 [facility] Comment on above: Performed By: #### HEMDF, BM P3, CRP2, ESR #### [place] [address] [address] [place], [place] Platelet mean volume (Bld) [Entitic vol] 7.4 fL Normal 7.4-10.4 [facility] Comment on above: Performed By: #### HEMDF, BM P3, CRP2, ESR #### [place] [address] [address] [place], [place] Platelets (Bld) [#/Vol] 247 10*3/uL Normal 140-440 [facility] Comment on above: Performed By: #### HEMDF, BM P3, CRP2, ESR #### [place] [address] [address] [place], [place] RBC (Bld) [#/Vol] 3.59 10*6/uL Low 4.40-5.90 [facility] Comment on above: Performed By: #### HEMDF, BM P3, CRP2, ESR #### [place] [address] [address] [place], [place] WBC (Bld) [#/Vol] 10.0 10*3/uL Normal 3.6-10.7 [facility] Comment on above: Performed By: #### HEMDF, BM P3, CRP2, ESR #### [place] [address] [address] [place], [place] Basic Metabolic Panel on 03-13-2019 Anion gap [Moles/Vol] 10 Normal [facility] Comment on above: Performed By: #### HEMDF, BM P3, CRP2, ESR #### [place] [address] [address] [place], [place] Calcium [Mass/Vol] 9.0 mg/dL Normal 8.4-10.4 [facility] Comment on above: Performed By: #### HEMDF, BM P3, CRP2, ESR #### [facility] [address] [place], [place] CO2 [Moles/Vol] 28 mmol/L Normal 22-30 [facility] Comment on above: Performed By: #### HEMDF, BM P3, CRP2, ESR #### [facility] [address] [place], [place] Glucose [Mass/Vol] 155 mg/dL High 70-100 [facility] Comment on above: Performed By: #### HEMDF, BM P3, CRP2, ESR #### [facility] [address] [place], [place] Urea nitrogen [Mass/Vol] 22 mg/dL High 7-20 [facility] Comment on above: Performed By: #### HEMDF, BM P3, CRP2, ESR #### [place] [address] [address] [place], [place] Creatinine [Mass/Vol] 0.80 mg/dL Normal 0.52-1.25 [facility] Comment on above: Performed By: #### HEMDF, BM P3, CRP2, ESR #### [facility] [address] [place], [place] GFR/1.73 sq M predicted among blacks mL/min/{1.73_m2} Normal >60 [facility] MDRD (S/P/Bld) [Vol rate/Area] Comment on above: Performed By: #### HEMDF, BM P3, CRP2, ESR #### [facility] [address] [place], [place] GFR/1.73 sq M predicted among mL/min/{1.73_m2} Normal >60 [facility] non-blacks MDRD (S/P/Bld) [Vol rate/Area] Comment on above: Result Comment: Source- MDRD equation with creatinine calibration to IDMS(NKDEP) eGFR not recommended for elton g dose adjustment Performed By: #### HEMDF, BM P3, CRP2, ESR #### [facility] [address] [place], [place] Potassium [Moles/Vol] 4.5 mmol/L Normal 3.5-5.1 [facility] Comment on above: Performed By: #### HEMDF, BM P3, CRP2, ESR #### [facility] [address] [place], [place] Sodium [Moles/Vol] 134 mmol/L Low 135-145 [facility] Comment on above: Performed By: #### HEMDF, BM P3, CRP2, ESR #### [facility] [address] [place], [place] Chloride [Moles/Vol] 96 mmol/L Low 98-107 [facility] Comment on above: Performed By: #### HEMDF, BM P3, CRP2, ESR #### [facility] [address] [place], [place] Echo Complete w/wo Contrast on 03-13-20 19 Echo Patient Name: CASSI FAULKNER V Normal [facility] Complete [facility] w/wo System Contrast Ultrasound Exam Date/Time 03/13/2019 12:00:28 EDT Exam Echo Complete w/wo Contrast Ordering Physician [id number] SAMIR HERNANDEZ Accession Number [id number] Reason For Exam Blood culture positive for staphylococcal aureus Report TRANSTHORACIC ECHOCARDIOGRAM PATIENT: Cassi Faulkner V STUDY DATE: 03/13/2019 : 1960 AGE: 58 HT/WT: 175.3 cm (69 160.6 kg (353.3 in) lb) GENDER: M BP: 161 / 88 LOCATION: [facility] PATIENT Inpatient [facility] STATUS: *ORDERING PHYSICIAN: * Samir Gibbs *READING PHYSICIAN: * Olegario Wynn, *WELDER SETTER RESISTANCE MACHINE : * AR Villavicencio DO, [facility] Sohan ESTRADA --- INDICATIONS: Blood culture positive for staphylococcal aureus. --- CONCLUSIONS SUMMARY: 1. Left ventricle: Systolic function is normal by the biplane method of disks. The estimated ejection fraction is 57%. 2. Right ventricle: The cavity size is mildly dilated. Wall thickness is normal. Right ventricular systolic pressure is within the normal range. 3. Left atrium: The atrium is normal in size. 4. Right atrium: The atrium is normal in size. 5. Mitral valve: Mildly calcified, mildly thickened an nulus. Mildly thickened, mildly calcified leaflets. 6. Aortic valve: Trileaflet; mildly thickened, mildly calcified leaflets. 7. Tricuspid valve: Structurally normal valve. 8. Aorta: The aorta is well visualized, normal, and no t dilated. 9. Pericardium, extracardiac: There is no pericardial effusion. 10. No vegetations or other evidence of endocarditis. RECOMMENDATIONS: Technically limited study. No definit e vegetations noted. Recommned TORRES if clinically indicated. --- STUDY DATA: Complete transthoracic echocardiogram. Pro cedure: Image quality was suboptimal. The study was technically limi mariely due to poor acoustic window availability and body habitus. Intravenous imag ing enhancement (Definity) was administered to opacify the chamber. [place] lot #: [id number]. M-mode, complete 2D, complete spectral Doppler, and co yaneth flow Doppler images were acquired and archived for permanent storage and a re available for subsequent review. Study status: Routine. Patient stat us: Inpatient. --- FINDINGS LEFT VENTRICLE: The cavity size is normal. Wall thickn ess is mildly increased. Systolic function is normal by the biplane method of disks. The estimated ejection fraction is 57%. There are no regio nal wall motion abnormalities. RIGHT VENTRICLE: The cavity size is mildly dilated. Wa ll thickness is normal. Systolic function is normal. Right ventricular systoli c pressure is within the normal range. VENTRICULAR SEPTUM: There is no evidence of a ventricu lar septal defect. LEFT ATRIUM: The atrium is normal in size. RIGHT ATRIUM: The atrium is normal in size. ATRIAL SEPTUM: Color Doppler shows no evidence of shun t. MITRAL VALVE: Not well visualized. Mildly calcified, m ildly thickened annulus. Mildly thickened, mildly calcified leaflets. Doppler: Transvalvular velocity is within the normal range. There is no evide nce for stenosis. There is no regurgitation. Peak gradient (D): 2 mm Hg. AORTIC VALVE: Not well visualized. Trileaflet; mildly thickened, mildly calcified leaflets. Doppler: Transvalvular velocity is within the normal range. There is no stenosis. There is no regurgitation . Peak gradient (S): 8 mm Hg. Peak velocity (S): 1.4 m/sec. TRICUSPID VALVE: Not well visualized. Structurally nor mal valve. Doppler: There is trivial, less than 1+ regurgitation. PULMONIC VALVE: Not well visualized. Structurally norm al valve. Doppler: There is no regurgitation. AORTA: The aorta is well visualized, normal, and not d ilated. PULMONARY ARTERY: Main pulmonary artery: Normal. PERICARDIUM: There is no pericardial effusion. SYSTEMIC VEINS: Not visualized. Inferior vena cava: The vessel is normal. The IVC stacy apses by greater than 50% with inspiration. --- Measurements Left ventricle Value Reference LV ID, ED 5.1 cm 4.2 - 5.9 LV ID, ES 3.9 cm --------- LV PW thickness, ED (H) 1.2 cm 0.6 - 1.0 LV end-diastolic volume, 1-p A4C 153 ml 67 - 155 LV end-systolic volume, 1-p A4C (H) 70 ml 22 - 58 LV end-diastolic volume, 2-p 105 ml 67 - 155 LV end-systolic volume, 2-p 45 ml 22 - 58 LV ejection fraction, 2-p 57 % >=55 LV E/e', lateral 6.9 --------- LV E/e', medial 9 --------- LV E/e', average 7.8 --------- Ventricular septum Value Reference IVS thickness, ED (H) 1.2 cm 0.6 - 1.0 LVOT Value Reference LVOT ID, A-P 2.0 cm --------- LVOT mean velocity, S 0.8 m/sec --------- LVOT VTI, S 19.7 cm --------- LVOT peak gradient, S 4 mm Hg --------- Stroke volume (SV), LVOT DP 63 ml --------- Stroke index (SV/bsa), LVOT DP 22 ml/m2 --------- Aortic valve Value Reference Aortic valve peak velocity, S 1.4 m/sec --------- Aortic peak gradient, S 8 mm Hg --------- Aorta Value Reference Aortic root ID 3.8 cm <4.8 Aortic root ID, STJ, ED 2.9 cm --------- Ascending aorta ID, A-P 3.4 cm --------- Left atrium Value Reference LA volume/bsa, ES, 2-p 23 ml/m2 --------- Mitral valve Value Reference Mitral E-wave peak velocity 0.8 m/sec --------- Mitral A-wave peak velocity 0.5 m/sec --------- Mitral deceleration time 177 ms --------- Mitral peak gradient, D 2 mm Hg --------- Mitral E/A ratio, peak 1.6 --------- Tricuspid valve Value Reference Tricuspid regurg peak velocity 1.1 m/sec --------- Tricuspid peak RV-RA gradient 5 mm Hg --------- Right ventricle Value Reference RV ID, minor axis, ED, A4C base 3.9 cm 2.4 - 4.2 RV ID, minor axis, ED, A4C mid (H) 4.5 cm 2.0 - 3.5 TAPSE 1.8 cm --------- Legend: (L) and (H) meliza values outside specified reference ra nge. Electronically signed by Olegario Wynn DO, FS, [facility] 03/13/2019 16:44 Final Dictated: 03/13/2019 4:45 pm Dictating Physician: DO WYNN JOSEPH Signed Date and Time: 03/13/2019 4:45 pm Signed by: DO WYNN JOSEPH Glucose,Bedside on 03-13-2019 Glucose [Mass/Vol] 224 mg/dL High 70-100 [facility] Comment on above: Result Comment: Test perform ed by glucose meter. Results may be 10%-15% lower than serum/plasma values. (C LIO ID [id number]) Performed By: #### HEMDF, BM P3, CRP2, ESR #### [facility] [address] [place] [address] Glucose [Mass/Vol] 163 mg/dL High 70-100 [facility] Comment on above: Result Comment: Test perform ed by glucose meter. Results may be 10%-15% lower than serum/plasma values. (C LIO ID [id number]) Performed By: #### HEMDF, BM P3, CRP2, ESR #### [facility] [address] [place] [address] Glucose [Mass/Vol] 130 mg/dL High 70-100 [facility] Comment on above: Result Comment: Test perform ed by glucose meter. Results may be 10%-15% lower than serum/plasma values. (C LIO ID [id number]) Performed By: #### HEMDF, BM P3, CRP2, ESR #### [facility] [address] [place], [place] Hemogram w/ Autodiff on 03-13-2019 Abs Baso Cnt 0.0 10*3/uL Normal 0.0-0.2 [facility] stem Comment on above: Performed By: #### HEMDF, BM P3, CRP2, ESR #### [facility] [address] [place], [place] Abs Neutrophile Cnt 7.9 10*3/uL High 1.8-7.0 [facility] Comment on above: Performed By: #### HEMDF, BM P3, CRP2, ESR #### [place] [address] [address] [place], [place] Basophils/100 WBC (Bld) 0.1 % Normal 0.0-2.0 [facility] Comment on above: Performed By: #### HEMDF, BM P3, CRP2, ESR #### [place] [address] [address] [place], [place] Eosinophils (Bld) [#/Vol] 0.1 10*3/uL Normal 0.0-0.5 [facility] Comment on above: Performed By: #### HEMDF, BM P3, CRP2, ESR #### [place] [address] [address] [place], [place] Eosinophils/100 WBC (Bld) 0.6 % Low 1.0-6.0 [facility] Comment on above: Performed By: #### HEMDF, BM P3, CRP2, ESR #### [place] [address] [address] [place], [place] Erythrocyte distribution width (RBC) 15.7 % High 11.5 -14.5 [facility] [Ratio] Comment on above: Performed By: #### HEMDF, BM P3, CRP2, ESR #### [place] [address] [address] [place], [place] Granulocytes/100 WBC (Bld) 75.5 % Normal 40.0-80.0 [facility] Comment on above: Performed By: #### HEMDF, BM P3, CRP2, ESR #### [place] [address] [place], [place] Hematocrit (Bld) [Volume fraction] 32.0 % Low 40.0-5 2.0 [facility] Comment on above: Performed By: #### HEMDF, BM P3, CRP2, ESR #### [place] [address] [place], [place] Hemoglobin (Bld) [Mass/Vol] 11.0 g/dL Low 13.0-18.0 [facility] Comment on above: Performed By: #### HEMDF, BM P3, CRP2, ESR #### [place] [address] [place], [place] Lymphocytes (Bld) [#/Vol] 1.1 10*3/uL Normal 1.0-4.3 [facility] Comment on above: Performed By: #### HEMDF, BM P3, CRP2, ESR #### [place] [address] [place], [place] Lymphocytes/100 WBC (Bld) 10.1 % Low 20.0-40.0 [facility] Comment on above: Performed By: #### HEMDF, BM P3, CRP2, ESR #### [place] [address] [address] [place], [place] MCH (RBC) [Entitic mass] 31.4 pg Normal 26.0-34.0 [facility] Comment on above: Performed By: #### HEMDF, BM P3, CRP2, ESR #### [place] [address] [address] [place], [place] MCHC (RBC) [Mass/Vol] 34.3 % Normal 32.0-36.0 [facility] Comment on above: Performed By: #### HEMDF, BM P3, CRP2, ESR #### [place] [address] [address] [place], [place] MCV (RBC) [Entitic vol] 91.6 fL Normal 80.0-98.0 [facility] Comment on above: Performed By: #### HEMDF, BM P3, CRP2, ESR #### [place] [address] [address] [place], [place] Monocytes (Bld) [#/Vol] 1.4 10*3/uL High 0.0-0.8 [facility] Comment on above: Performed By: #### HEMDF, BM P3, CRP2, ESR #### [place] [address] [place], [place] Monocytes/100 WBC (Bld) 13.7 % High 2.0-10.0 [facility] Comment on above: Performed By: #### HEMDF, BM P3, CRP2, ESR #### [place] [address] [address] [place], [place] Platelet mean volume (Bld) [Entitic vol] 7.4 fL Normal 7.4-10.4 [facility] Comment on above: Performed By: #### HEMDF, BM P3, CRP2, ESR #### [place] [address] [address] [place], [place] Platelets (Bld) [#/Vol] 312 10*3/uL Normal 140-440 [facility] Comment on above: Performed By: #### HEMDF, BM P3, CRP2, ESR #### [place] [address] [address] [place], [place] RBC (Bld) [#/Vol] 3.50 10*6/uL Low 4.40-5.90 [facility] Comment on above: Performed By: #### HEMDF, BM P3, CRP2, ESR #### [place] [address] [place], [place] WBC (Bld) [#/Vol] 10.5 10*3/uL Normal 3.6-10.7 [facility] Comment on above: Performed By: #### HEMDF, BM P3, CRP2, ESR #### [place] [address] [address] [place], [place] Lactic Acid on 03-13-2019 Lactate [Moles/Vol] 0.8 mmol/L Normal 0.7-2.0 [facility] Comment on above: Performed By: #### HEMDF, BM P3, CRP2, ESR #### [place] [address] [address] [place], [place] Arterial Blood Gases on 03-12-2019 CO2 [Moles/Vol] 27.8 mmol/L High 23.0-27.0 [facility] Comment on above: Performed By: #### HEMDF, BM P3, CRP2, ESR #### [place] [address] [address] [place], [place] HCO3 (Bld) [Moles/Vol] 26.5 mmol/L High 21.0-25.0 [facility] Comment on above: Performed By: #### HEMDF, BM P3, CRP2, ESR #### [address] [place] [address] [place], [place] Hemoglobin (Bld) [Mass/Vol] 11.1 g/dL Normal ScreenOnly [facility] Comment on above: Performed By: #### HEMDF, BM P3, CRP2, ESR #### [place] [address] [address] [place], [place] Oxygen (Bld) [Partial pressure] 105.2 mm[Hg] High 80.0-100. 0 [facility] Comment on above: Performed By: #### HEMDF, BM P3, CRP2, ESR #### [place] [address] [address] [place], [place] Oxygen saturation in Blood 97.8 % Normal 95.0-100.0 [facility] Comment on above: Performed By: #### HEMDF, BM P3, CRP2, ESR #### [place] [address] [address] [place], [place] pCO2 41.2 mm[Hg] Normal 35.0-45.0 [facility] Sy stem Comment on above: Performed By: #### HEMDF, BM P3, CRP2, ESR #### [place] [address] [place], [place] pH (Bld) 7.427 Normal 7.350-7.450 [facility] stem Comment on above: Performed By: #### HEMDF, BM P3, CRP2, ESR #### [facility] [address] [place], [place] Std Base Excess 2.0 mmol/L Normal -3.0-3.0 [facility] Comment on above: Performed By: #### HEMDF, BM P3, CRP2, ESR #### [facility] [address] [place], [place] FIO2 3l Normal [facility] Sy stem Comment on above: Performed By: #### HEMDF, BM P3, CRP2, ESR #### [facility] [address] [place], [place] Comp Metabolic Panel on 03-12-2019 ALP [Catalytic activity/Vol] 88 U/L Normal 38-126 [facility] Comment on above: Performed By: #### HEMDF, BM P3, CRP2, ESR #### [place] [address] [address] [place], [place] ALT [Catalytic activity/Vol] 22 U/L Normal 13-69 [facility] Comment on above: Performed By: #### HEMDF, BM P3, CRP2, ESR #### [place] [address] [address] [place], [place] Anion gap [Moles/Vol] 10 Normal [facility] Comment on above: Performed By: #### HEMDF, BM P3, CRP2, ESR #### [place] [address] [address] [place], [place] AST [Catalytic activity/Vol] 30 U/L Normal 15-46 [facility] Comment on above: Performed By: #### HEMDF, BM P3, CRP2, ESR #### [place] [address] [address] [place], [place] Bilirubin [Mass/Vol] 0.2 mg/dL Normal 0.2-1.3 [facility] Comment on above: Performed By: #### HEMDF, BM P3, CRP2, ESR #### [place] [address] [address] [place], [place] Calcium [Mass/Vol] 9.4 mg/dL Normal 8.4-10.4 [facility] Comment on above: Performed By: #### HEMDF, BM P3, CRP2, ESR #### [place] [address] [address] [place], [place] CO2 [Moles/Vol] 28 mmol/L Normal 22-30 [facility] Comment on above: Performed By: #### HEMDF, BM P3, CRP2, ESR #### [place] [address] [address] [place], [place] Glucose [Mass/Vol] 182 mg/dL High 70-100 [facility] Comment on above: Performed By: #### HEMDF, BM P3, CRP2, ESR #### [place] [address] [place], [place] Protein [Mass/Vol] 6.8 g/dL Normal 6.3-8.2 [facility] Comment on above: Performed By: #### HEMDF, BM P3, CRP2, ESR #### [place] [address] [place], [place] Urea nitrogen [Mass/Vol] 24 mg/dL High 7-20 [facility] Comment on above: Performed By: #### HEMDF, BM P3, CRP2, ESR #### [place] [address] [place], [place] Creatinine [Mass/Vol] 0.82 mg/dL Normal 0.52-1.25 [facility] Comment on above: Performed By: #### HEMDF, BM P3, CRP2, ESR #### [place] [address] [address] [place], [place] GFR/1.73 sq M predicted among blacks mL/min/{1.73_m2} Normal >60 [facility] MDRD (S/P/Bld) [Vol rate/Area] Comment on above: Performed By: #### HEMDF, BM P3, CRP2, ESR #### [place] [address] [address] [place], [place] GFR/1.73 sq M predicted among mL/min/{1.73_m2} Normal >60 [facility] non-blacks MDRD (S/P/Bld) [Vol rate/Area] Comment on above: Result Comment: Source- MDRD equation with creatinine calibration to IDMS(NKDEP) eGFR not recommended for elton g dose adjustment Performed By: #### HEMDF, BM P3, CRP2, ESR #### [facility] [address] [place] [address] Albumin [Mass/Vol] 3.3 g/dL Low 3.5-5.0 [facility] Comment on above: Performed By: #### HEMDF, BM P3, CRP2, ESR #### [facility] [address] [place] [address] Potassium [Moles/Vol] 4.8 mmol/L Normal 3.5-5.1 [facility] Comment on above: Performed By: #### HEMDF, BM P3, CRP2, ESR #### [place] [address] [place] [address] Sodium [Moles/Vol] 137 mmol/L Normal 135-145 [facility] [facility] Comment on above: Performed By: #### HEMDF, BM P3, CRP2, ESR #### [address] [place] [address] Chloride [Moles/Vol] 98 mmol/L Normal 98-107 [facility] Comment on above: Performed By: #### HEMDF, BM P3, CRP2, ESR #### [address] [address] [place] [address] Glucose,Bedside on 03-12-2019 Glucose [Mass/Vol] 187 mg/dL High 70-100 [facility] Comment on above: Result Comment: Test perform ed by glucose meter. Results may be 10%-15% lower than serum/plasma values. (C LIO ID [id number]) Performed By: #### HEMDF, BM P3, CRP2, ESR #### [address] [address] [place] [address] Glucose [Mass/Vol] 167 mg/dL High 70-100 [facility] Comment on above: Result Comment: Test perform ed by glucose meter. Results may be 10%-15% lower than serum/plasma values. (C LIO ID [id number]) Performed By: #### HEMDF, BM P3, CRP2, ESR #### [facility] [address] [address] [place] [address] Glucose [Mass/Vol] 178 mg/dL High 70-[address] [facility] Comment on above: Result Comment: Test perform ed by glucose meter. Results may be 10%-15% lower than serum/plasma values. (C LIO ID [id number]) Performed By: #### HEMDF, BM P3, CRP2, ESR #### [facility] [address] [place], [place] Glucose [Mass/Vol] 183 mg/dL High 70-100 [facility] Comment on above: Result Comment: Test perform ed by glucose meter. Results may be 10%-15% lower than serum/plasma values. (C LIO ID [id number]) Performed By: #### HEMDF, BM P3, CRP2, ESR #### [facility] [address] [address] [place], [place] Glucose [Mass/Vol] 145 mg/dL High 70-100 [facility] Comment on above: Result Comment: Test perform ed by glucose meter. Results may be 10%-15% lower than serum/plasma values. (C LIO ID [id number]) Performed By: #### HEMDF, BM P3, CRP2, ESR #### [facility] [address] [address] [place], [place] Hemoglobin A1C on 03-12-2019 HbA1c (Bld) [Mass fraction] 8.2 % High 4.0-5.7 [facility] Comment on above: Result Comment: --HgbA1C lev els may not be accurate in patients who have renal disease, received rece nt blood transfusions, are anemic, or who have dyshemoglobinemi a. Performed By: #### HEMDF, BM P3, CRP2, ESR #### [facility] [address] [place], [place] HbA1c (Bld) [Mass fraction] 189 mg/dL Normal [facility] Comment on above: Performed By: #### HEMDF, BM P3, CRP2, ESR #### [facility] [address] [place], [place] Hemogram w/ Autodiff on 03-12-2019 Abs Baso Cnt 0.1 10*3/uL Normal 0.0-0.2 [facility] Comment on above: Performed By: #### HEMDF, BM P3, CRP2, ESR #### [address] [address] [place], [place] Abs Neutrophile Cnt 12.2 10*3/uL High 1.8-7.0 [facility] Comment on above: Performed By: #### HEMDF, BM P3, CRP2, ESR #### [address] [address] [place], [place] Basophils/100 WBC (Bld) 0.4 % Normal 0.0-2.0 [facility] Comment on above: Performed By: #### HEMDF, BM P3, CRP2, ESR #### [address] [address] [place], [place] Eosinophils (Bld) [#/Vol] 0.0 10*3/uL Normal 0.0-0.5 [facility] Comment on above: Performed By: #### HEMDF, BM P3, CRP2, ESR #### [address] [address] [place], [place] Eosinophils/100 WBC (Bld) 0.0 % Low 1.0-6.0 [facility] Comment on above: Performed By: #### HEMDF, BM P3, CRP2, ESR #### [address] [address] [place], [place] Erythrocyte distribution width (RBC) 16.0 % High 11.5 -14.5 [facility] [Ratio] Comment on above: Performed By: #### HEMDF, BM P3, CRP2, ESR #### [address] [place], [place] Granulocytes/100 WBC (Bld) 87.0 % High 40.0-80.0 [facility] Comment on above: Performed By: #### HEMDF, BM P3, CRP2, ESR #### [address] [place], [place] Hematocrit (Bld) [Volume fraction] 33.1 % Low 40.0-5 2.0 [facility] Comment on above: Performed By: #### HEMDF, BM P3, CRP2, ESR #### [address] [address] [place], [place] Hemoglobin (Bld) [Mass/Vol] 11.1 g/dL Low 13.0-18.0 [facility] Comment on above: Performed By: #### HEMDF, BM P3, CRP2, ESR #### [address] [place], [place] Lymphocytes (Bld) [#/Vol] 0.7 10*3/uL Low 1.0-4.3 [facility] Comment on above: Performed By: #### HEMDF, BM P3, CRP2, ESR #### [address] Lymphocytes/100 WBC (Bld) 4.8 % Low 20.0-40.0 [facility] Comment on above: Performed By: #### HEMDF, BM P3, CRP2, ESR #### [address] MCH (RBC) [Entitic mass] 30.2 pg Normal 26.0-34.0 [facility] Comment on above: Performed By: #### HEMDF, BM P3, CRP2, ESR #### [address] [address] [place], [place] MCHC (RBC) [Mass/Vol] 33.5 % Normal 32.0-36.0 [facility] Comment on above: Performed By: #### HEMDF, BM P3, CRP2, ESR #### [address] MCV (RBC) [Entitic vol] 90.2 fL Normal 80.0-98.0 [facility] Comment on above: Performed By: #### HEMDF, BM P3, CRP2, ESR #### [address] [address] [place], [place] Monocytes (Bld) [#/Vol] 1.1 10*3/uL High 0.0-0.8 [facility] Comment on above: Performed By: #### HEMDF, BM P3, CRP2, ESR #### [address] [place], [place] Monocytes/100 WBC (Bld) 7.8 % Normal 2.0-10.0 [facility] Comment on above: Performed By: #### HEMDF, BM P3, CRP2, ESR #### [address] [place], [place] Platelet mean volume (Bld) [Entitic vol] 7.5 fL Normal 7.4-10.4 [facility] Comment on above: Performed By: #### HEMDF, BM P3, CRP2, ESR #### [address] [place], [place] Platelets (Bld) [#/Vol] 361 10*3/uL Normal 140-440 [facility] Comment on above: Performed By: #### HEMDF, BM P3, CRP2, ESR #### [address] [place], [place] RBC (Bld) [#/Vol] 3.67 10*6/uL Low 4.40-5.90 [facility] Comment on above: Performed By: #### HEMDF, BM P3, CRP2, ESR #### [address] [place], [place] WBC (Bld) [#/Vol] 14.0 10*3/uL High 3.6-10.7 [facility] Comment on above: Performed By: #### HEMDF, BM P3, CRP2, ESR #### [address] [place], [place] Lactic Acid on 03-12-2019 Lactate [Moles/Vol] 0.9 mmol/L Normal 0.7-2.0 [facility] Comment on above: Performed By: #### HEMDF, BM P3, CRP2, ESR #### [address] [place], [place] Lactate [Moles/Vol] 2.3 mmol/L Critically high 0.7-2.0 [facility] Comment on above: Result Comment: Repeated Performed By: #### HEMDF, BM P3, CRP2, ESR #### [address] [place], [place] Procalcitonin on 03-12-2019 Procalcitonin 0.10 ng/mL Abnormal <0.10 [facility] Comment on above: Performed By: #### HEMDF, BM P3, CRP2, ESR #### [address] [place], [place] Thyroid Stim. Hormone on 03-12-2019 Thyroid Stim. Hormone 1.428 u[IU]/mL Normal 0.465-4.680 [facility] Comment on above: Performed By: #### HEMDF, BM P3, CRP2, ESR #### [address] [place], [place] Basic Metabolic Panel on 03-11-2019 Calcium [Mass/Vol] 9.8 mg/dL Normal 8.4-10.4 [facility] Comment on above: Performed By: #### HEMDF, BM P3, CRP2, ESR #### [address] [place], [place] Anion gap [Moles/Vol] 12 Normal [facility] Comment on above: Performed By: #### HEMDF, BM P3, CRP2, ESR #### [address] [place], [place] CO2 [Moles/Vol] 26 mmol/L Normal 22-30 [facility] Comment on above: Performed By: #### HEMDF, BM P3, CRP2, ESR #### [address] [place], [place] Creatinine [Mass/Vol] 0.67 mg/dL Normal 0.52-1.25 [facility] Comment on above: Performed By: #### HEMDF, BM P3, CRP2, ESR #### [address] [place], [place] GFR/1.73 sq M predicted among blacks mL/min/{1.73_m2} Normal >60 [facility] MDRD (S/P/Bld) [Vol rate/Area] Comment on above: Performed By: #### HEMDF, BM P3, CRP2, ESR #### [facility] [address] [place] [address] GFR/1.73 sq M predicted among mL/min/{1.73_m2} Normal >60 [facility] non-blacks MDRD (S/P/Bld) [Vol rate/Area] Comment on above: Result Comment: Source- MDRD equation with creatinine calibration to IDMS(NKDEP) eGFR not recommended for elton g dose adjustment Performed By: #### HEMDF, BM P3, CRP2, ESR #### [facility] [address] [place] [address] Glucose [Mass/Vol] 192 mg/dL High 70-100 [facility] Comment on above: Performed By: #### HEMDF, BM P3, CRP2, ESR #### [facility] [address] [place] [address] Urea nitrogen [Mass/Vol] 20 mg/dL Normal 7-20 [facility] Comment on above: Performed By: #### HEMDF, BM P3, CRP2, ESR #### [address] [address] Chloride [Moles/Vol] 101 mmol/L Normal 98-107 [facility] Comment on above: Performed By: #### HEMDF, BM P3, CRP2, ESR #### [facility] [address] [place] [address] Potassium [Moles/Vol] 4.7 mmol/L Normal 3.5-5.1 [facility] Comment on above: Performed By: #### HEMDF, BM P3, CRP2, ESR #### [facility] [address] [place] [address] Sodium [Moles/Vol] 138 mmol/L Normal 135-145 [facility] Comment on above: Performed By: #### HEMDF, BM P3, CRP2, ESR #### [facility] [address] [place] [address] Drugs of Abuse on 03-11-2019 Phencyclidine (PCP), Ur Negative Normal [facility] Comment on above: Result Comment: The expected value for all of the drugs listed above is Negative. The following drugs or drug groups have been screened for by Immunoassay at the fo llowing thresholds: Amphetamine class (1000 ng/m L), Barbiturates (200 ng/mL), Benzodiazepines (200 ng/mL), Cocaine (300 ng/mL), Methadone (300 ng/mL), Opiat es (300 ng/mL), Oxycodone (100 ng/mL), and P CP (25 ng/mL). NOTE: These results are for medical treatment only. Analysis performed using non -forensic procedures. POSITIVE results are NOT con firmed by a more specific alternative method unless re quested. If confirmation is needed, request confirmation under separate order. Performed By: #### [email or web address] ### # [address] [facility] [place] [address] Methadone, Ur Negative Normal [facility] Comment on above: Performed By: #### [email or web address] ### # [address] [facility] [place] [address] Opiates, Ur Positive Normal [facility] Comment on above: Performed By: #### [email or web address] ### # [address] [facility] [place] [address] Cocaine, Ur Negative Normal [facility] Comment on above: Performed By: #### [email or web address] ### # [facility] [address] [facility] [place] [address] Barbiturates, Ur Negative Normal [facility] Comment on above: Performed By: #### DRGA4 ### # [facility] [address] [facility] [place] [address] Benzodiazepines, Ur Negative Normal [facility] Comment on above: Performed By: #### DRGA4 ### # [address] [facility] [place] [address] Amphetamines, Ur Negative Normal [facility] Comment on above: Performed By: #### [email or web address] ### # [address] [place], [place] Oxycodone/Oxymorphine,Ur Negative Normal [facility] Comment on above: Performed By: #### [email or web address] ### # [facility] [address] [place], [place] Glucose,Bedside on 03-11-2019 Glucose [Mass/Vol] 247 mg/dL High 70-100 [facility] Comment on above: Result Comment: Test perform ed by glucose meter. Results may be 10%-15% lower than serum/plasma values. (C LIO ID [id number]) Performed By: #### HEMDF, BM P3, CRP2, ESR #### [address] [place], [place] Glucose [Mass/Vol] 194 mg/dL High 70-100 [facility] Comment on above: Result Comment: Test perform ed by glucose meter. Results may be 10%-15% lower than serum/plasma values. (C LIO ID [id number]) Performed By: #### HEMDF, BM P3, CRP2, ESR #### [address] [place], [place] Glucose [Mass/Vol] 191 mg/dL High 70-100 [facility] Comment on above: Result Comment: Test perform ed by glucose meter. Results may be 10%-15% lower than serum/plasma values. (C LIO ID [id number]) Performed By: #### HEMDF, BM P3, CRP2, ESR #### [address] [place], [place] Glucose [Mass/Vol] 123 mg/dL High 70-100 [facility] Comment on above: Result Comment: Test perform ed by glucose meter. Results may be 10%-15% lower than serum/plasma values. (C LIO ID [id number]) Performed By: #### HEMDF, BM P3, CRP2, ESR #### [address] [place], [place] Hemogram w/ Autodiff on 03-11-2019 Abs Baso Cnt 0.0 10*3/uL Normal 0.0-0.2 [facility] Comment on above: Performed By: #### HEMDF, BM P3, CRP2, ESR #### [facility] [address] [place], [place] Abs Neutrophile Cnt 10.1 10*3/uL High 1.8-7.0 [facility] Comment on above: Performed By: #### HEMDF, BM P3, CRP2, ESR #### [facility] [address] [place], [place] Basophils/100 WBC (Bld) 0.1 % Normal 0.0-2.0 [facility] Comment on above: Performed By: #### HEMDF, BM P3, CRP2, ESR #### [address] [place], [place] Eosinophils (Bld) [#/Vol] 0.0 10*3/uL Normal 0.0-0.5 [facility] Comment on above: Performed By: #### HEMDF, BM P3, CRP2, ESR #### [address] [place], [place] Eosinophils/100 WBC (Bld) 0.0 % Low 1.0-6.0 [facility] Comment on above: Performed By: #### HEMDF, BM P3, CRP2, ESR #### [address] [place], [place] Erythrocyte distribution width (RBC) 15.4 % High 11.5 -14.5 [facility] [Ratio] Comment on above: Performed By: #### HEMDF, BM P3, CRP2, ESR #### [facility] [address] [place] [address] Granulocytes/100 WBC (Bld) 87.3 % High 40.0-80.0 [facility] Comment on above: Performed By: #### HEMDF, BM P3, CRP2, ESR #### [facility] [address] [place] [address] Hematocrit (Bld) [Volume fraction] 36.4 % Low 40.0-5 2.0 [facility] Comment on above: Performed By: #### HEMDF, BM P3, CRP2, ESR #### [address] [place], [place] Hemoglobin (Bld) [Mass/Vol] 12.1 g/dL Low 13.0-18.0 [facility] Comment on above: Performed By: #### HEMDF, BM P3, CRP2, ESR #### [address] [place], [place] Lymphocytes (Bld) [#/Vol] 0.7 10*3/uL Low 1.0-4.3 [facility] Comment on above: Performed By: #### HEMDF, BM P3, CRP2, ESR #### [address] [address] [place], [place] Lymphocytes/100 WBC (Bld) 5.7 % Low 20.0-40.0 [facility] Comment on above: Performed By: #### HEMDF, BM P3, CRP2, ESR #### [address] [place], [place] MCH (RBC) [Entitic mass] 30.6 pg Normal 26.0-34.0 [facility] Comment on above: Performed By: #### HEMDF, BM P3, CRP2, ESR #### [address] MCHC (RBC) [Mass/Vol] 33.2 % Normal 32.0-36.0 [facility] Comment on above: Performed By: #### HEMDF, BM P3, CRP2, ESR #### [address] [place] MCV (RBC) [Entitic vol] 91.9 fL Normal 80.0-98.0 [facility] Comment on above: Performed By: #### HEMDF, BM P3, CRP2, ESR #### [address] Monocytes (Bld) [#/Vol] 0.8 10*3/uL Normal 0.0-0.8 [facility] Comment on above: Performed By: #### HEMDF, BM P3, CRP2, ESR #### [address] [place], [place] Monocytes/100 WBC (Bld) 6.9 % Normal 2.0-10.0 [facility] Comment on above: Performed By: #### HEMDF, BM P3, CRP2, ESR #### [address] [place], [place] Platelet mean volume (Bld) [Entitic vol] 7.5 fL Normal 7.4-10.4 [facility] Comment on above: Performed By: #### HEMDF, BM P3, CRP2, ESR #### [address] [place], [place] Platelets (Bld) [#/Vol] 372 10*3/uL Normal 140-440 [facility] Comment on above: Performed By: #### HEMDF, BM P3, CRP2, ESR #### [address] [place], [place] RBC (Bld) [#/Vol] 3.96 10*6/uL Low 4.40-5.90 [facility] Comment on above: Performed By: #### HEMDF, BM P3, CRP2, ESR #### [address] [place], [place] WBC (Bld) [#/Vol] 11.6 10*3/uL High 3.6-10.7 [facility] Comment on above: Performed By: #### HEMDF, BM P3, CRP2, ESR #### [address] [place], [place] MRI Spine Lumbar w/ Contrast on 019 MRI Spine Lumbar w/ Patient Name: CASSI FAULKNER V Normal [facility] Contrast MRI Exam Date/Time 03/10/2019 22:44:50 EDT Exam MRI Spine Lumbar w/ Contrast Ordering Physician ODNTA VERNON Accession Number [id number] CPT4 Codes 83306 () Reason For Exam r/o epidural abscess Report MRI OF THE LUMBAR SPINE WITH GADOLINIUM CLINICAL INDICATION: r/o epidural abscess. TECHNIQUE: MRI of the lumbar spine, including T1 coron al and sagittal, pre and post IV gadolinium and axial T1 post gadoliniu m sequences. COMPARISON: Noncontrast MRI lumbar spine earlier on sa me date. FINDINGS: Extensive inflammatory changes and abnormal enhancemen t in the L4 and L5 vertebral bodies, with associated endplate irregula rity, and the L4-5 disc space, as noted on comparison. Amorphous enhancement and probable phlegmonous change noted about the L4-5 disc space, extending circumferentially beyond th e vertebral body margins. This includes approximately 6 mm posterior ex tension, which effaces the anterior epidural space, slightly flattens the ventral thecal sac and causes moderate central spinal canal na rrowing. Apparent contact and partial encasement of the exiting far lateral L4 nerve roots, left greater than right. This phlegmonous material also extends cephalad along the anterior epidural space approximately 2.5 cm to near the L3-4 d isc level. Similar amorphous focus of abnormal enhancement extend ing from the central L4-5 disc partially into the L4 inferior endpl ate and L5 superior endplate measuring approximately 1 x 1.5 cm i n cross-sectional diameter and 2 cm in craniocaudal dime nsion suggesting intradiscal and intravertebral phlegmonous change. Extension of phlegmon this material also into the bila teral psoas regions, left greater than right, with small and ring- enhancing fluid collection in the posterior medial aspect of left psoa s muscle measuring approximately 10 x 12 mm representing discre te abscess formation. No loss of height or gross malalignment of lumbar vert ebral bodies. Conus medullaris is in normal location and has normal contour and signal intensity. Degenerative disc disease and small disc bulge at L5-S 1 level again evident. No significant central spinal canal narrowing . Please see comparison report for more details at individual level s. IMPRESSION: 1. 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 2. Central, intradiscal and intravertebral phlegmonous change at L4-5 level, as reported. 3. Small, ring-enhancing inflammatory collection/absce ss in the posteromedial aspect of left psoas muscle. Report Dictated on Workstation: [id number] Final Dictated: 03/10/2019 11:22 pm Dictating Physician: MD HARMAN WENDELL Signed Date and Time: 03/10/2019 11:45 pm Signed by: MD HARMAN WENDELL Transcribed Date and Time: 03/10/2019 11:22 MRI Spine Thoracic w/ + w/o Contrast on 03-11-2019 MRI Spine Thoracic w/ + Patient Name: CASSI FAULKNER V [facility] w/o Contrast MRI Exam Date/Time 03/10/2019 22:44:50 EDT Exam MRI Spine Thoracic w/ + w/o Contrast Ordering Physician [id number] JOHNSON Accession Number [id number] CPT4 Codes 15793 () Reason For Exam r/o epidural abscess Report MRI OF THE THORACIC SPINE WITHOUT AND WITH GADOLINIUM CLINICAL INDICATION: r/o epidural abscess. TECHNIQUE: Routine MRI of the thoracic spine without a nd with IV gadolinium. COMPARISON: None. FINDINGS: Multilevel degenerative disc disease and spondylosis, most pronounced in the mid-lower thoracic spine. No loss of height or gross malalignment of thoracic ve rtebral bodies. Thoracic spinal cord has normal contour and signal int ensity. No apparent disc bulge or protrusion. No significant c entral spinal or foraminal stenosis. Paraspinal soft tissues grossly unremarkable. No abnor mal enhancement. IMPRESSION: 1. Degenerative disc disease and spondylosis. 2. No significant disc bulge, protrusion or central sp inal canal compromise in the thoracic spine. 3. No discrete abscess. Report Dictated on Workstation: [id number] Final Dictated: 03/10/2019 10:59 pm Dictating Physician: MD HARMAN WENDELL Signed Date and Time: 03/10/2019 11:12 pm Signed by: MD HARMAN WENDELL Transcribed Date and Time: 03/10/2019 10:59 Procalcitonin on 03-11-2019 Interpretation See Below [facility] Comment on above: Result Comment: PCT <0.50 = Low risk of severe sepsis and/or septic shock. PCT >2.00 = High risk of sev ere sepsis and/or septic shock. Performed By: #### HEMDF, BM P3, CRP2, ESR #### [facility] [address] [address] [place], [place] Prothrombin Time on 03-11-2019 INR Coag (PPP) [Relative time] 1.0 Normal 0.9-1.1 [facility] Comment on above: Result Comment: Recommended Anticoagulant Therapy: SEE BELOW ----- INR of 2.0 - 3.0 : - Prophylaxis of Venous Thro mbosis (high-risk surgery) - Treatment of Venous Thromb osis - Treatment of Pulmonary Emb olism (Includes tissue heart valves, Acute Myocardial Inf arction to prevent systemic embolism, Valvular Heart Dis ease, and Atrial Fibrillation) ----- INR of 2.5 - 3.5 : - Mechanical Prosthetic Valv es (high risk) - If oral anticoagulant ther apy is used to prevent Myocardial Infarction Performed By: #### PT #### [address] [place], [place] PT Coag (PPP) [Time] 10.2 s Normal 9.0-12.0 [facility] Comment on above: Result Comment: . Performed By: #### PT #### [facility] [address] [address] [place], [place] TS GEL on 03-11-2019 TS GEL ABO Group: Normal [facility] [address] O Rh, Gel: POS Antibody Screen Gel: NEG Comment on above: Performed By: #### TSGL #### [facility] [address] [address] [place] [address] Basic Metabolic Panel on 03-10-2019 Anion gap [Moles/Vol] 9 Normal [facility] Comment on above: Performed By: #### HEMDF, BM P3, CRP2, ESR #### [facility] [address] [address] [place], [place] Calcium [Mass/Vol] 9.8 mg/dL Normal 8.4-10.4 [facility] Comment on above: Performed By: #### HEMDF, BM P3, CRP2, ESR #### [facility] [address] [address] [place], [place] CO2 [Moles/Vol] 27 mmol/L Normal 22-30 [facility] Comment on above: Performed By: #### HEMDF, BM P3, CRP2, ESR #### [address] [place], [place] Glucose [Mass/Vol] 234 mg/dL High 70-100 [facility] Comment on above: Performed By: #### HEMDF, BM P3, CRP2, ESR #### [address] [place], [place] Urea nitrogen [Mass/Vol] 22 mg/dL High 7-20 [facility] Comment on above: Performed By: #### HEMDF, BM P3, CRP2, ESR #### [address] [place], [place] Creatinine [Mass/Vol] 0.77 mg/dL Normal 0.52-1.25 [facility] Comment on above: Performed By: #### HEMDF, BM P3, CRP2, ESR #### [address] [place], [place] GFR/1.73 sq M predicted among blacks mL/min/{1.73_m2} Normal >60 [facility] MDRD (S/P/Bld) [Vol rate/Area] Comment on above: Performed By: #### HEMDF, BM P3, CRP2, ESR #### [address] [place], [place] GFR/1.73 sq M predicted among mL/min/{1.73_m2} Normal >60 [facility] non-blacks MDRD (S/P/Bld) [Vol rate/Area] Comment on above: Result Comment: Source- MDRD equation with creatinine calibration to IDMS(NKDEP) eGFR not recommended for elton g dose adjustment Performed By: #### HEMDF, BM P3, CRP2, ESR #### [address] [place], [place] Chloride [Moles/Vol] 101 mmol/L Normal 98-107 [facility] Comment on above: Performed By: #### HEMDF, BM P3, CRP2, ESR #### [address] [place] [address] Potassium [Moles/Vol] 5.2 mmol/L High 3.5-5.1 [facility] Comment on above: Performed By: #### HEMDF, BM P3, CRP2, ESR #### [facility] [address] [place] [address] Sodium [Moles/Vol] 137 mmol/L Normal 135-145 [facility] Comment on above: Performed By: #### HEMDF, BM P3, CRP2, ESR #### [facility] [address] [place] [address] C-Reactive Protein on 03-10-2019 CRP [Mass/Vol] 67.9 mg/L High 0.0-6.0 [facility] Comment on above: Result Comment: . Performed By: #### HEMDF, BM P3, CRP2, ESR #### [facility] [address], [place] CR Chest 1 View Frontal on 03-10-2019 CR Chest 1 View Frontal Patient Name: CASSI FAULKNER V Normal [facility] Diagnostic Radiology Exam Date/Time 03/10/2019 21:25:47 EDT Exam CR Chest 1 View Frontal Ordering Physician [id number] JOHNSON Accession Number [id number] CPT4 Codes 25586 () Reason For Exam preop Report CLINICAL INFORMATION: Preoperative clearance. A frontal view of the chest was obtained. Comparison w as made to the study dated . No acute pulmonary disease is not ed. The previously seen right lower lung infiltrate has resolv ed. The cardiovascular silhouette is within normal limits. IMPRESSION: No acute pulmonary disease. Report Dictated on Final Dictated: 03/10/2019 9:54 pm Dictating Physician: DO CEDILLO ANTHONY Signed Date and Time: 03/10/2019 9:55 pm Signed by: DO CEDILLO ANTHONY Transcribed Date and Time: 03/10/2019 9:54 Hemogram w/ Autodiff on 03-10-2019 Abs Baso Cnt 0.0 10*3/uL Normal 0.0-0.2 [facility] Comment on above: Performed By: #### HEMDF, BM P3, CRP2, ESR #### [facility] [address], [place] Abs Neutrophile Cnt 8.6 10*3/uL High 1.8-7.0 [facility] Comment on above: Performed By: #### HEMDF, BM P3, CRP2, ESR #### [facility] [address], [place] Basophils/100 WBC (Bld) 0.4 % Normal 0.0-2.0 [facility] Comment on above: Performed By: #### HEMDF, BM P3, CRP2, ESR #### [place] [address], [place] Eosinophils (Bld) [#/Vol] 0.0 10*3/uL Normal 0.0-0.5 [facility] Comment on above: Performed By: #### HEMDF, BM P3, CRP2, ESR #### [facility] [address], [place] Eosinophils/100 WBC (Bld) 0.2 % Low 1.0-6.0 [facility] Comment on above: Performed By: #### HEMDF, BM P3, CRP2, ESR #### [facility] [address], [place] Erythrocyte distribution width (RBC) 15.5 % High 11.5 -14.5 [facility] [Ratio] Comment on above: Performed By: #### HEMDF, BM P3, CRP2, ESR #### [facility] [address], [place] Granulocytes/100 WBC (Bld) 93.3 % High 40.0-80.0 [facility] Comment on above: Performed By: #### HEMDF, BM P3, CRP2, ESR #### [facility] [address], [place] Hematocrit (Bld) [Volume fraction] 35.9 % Low 40.0-5 2.0 [facility] Comment on above: Performed By: #### HEMDF, BM P3, CRP2, ESR #### [place] [address] [address], [place] Hemoglobin (Bld) [Mass/Vol] 12.3 g/dL Low 13.0-18.0 [facility] Comment on above: Performed By: #### HEMDF, BM P3, CRP2, ESR #### [place] [address] [place], [place] Lymphocytes (Bld) [#/Vol] 0.5 10*3/uL Low 1.0-4.3 [facility] Comment on above: Performed By: #### HEMDF, BM P3, CRP2, ESR #### [place] [address] [place], [place] Lymphocytes/100 WBC (Bld) 5.0 % Low 20.0-40.0 [facility] Comment on above: Performed By: #### HEMDF, BM P3, CRP2, ESR #### [place] [address] [address], [place] MCH (RBC) [Entitic mass] 31.2 pg Normal 26.0-34.0 [facility] Comment on above: Performed By: #### HEMDF, BM P3, CRP2, ESR #### [address] MCHC (RBC) [Mass/Vol] 34.3 % Normal 32.0-36.0 [facility] Comment on above: Performed By: #### HEMDF, BM P3, CRP2, ESR #### [place] [address] [address], [place] MCV (RBC) [Entitic vol] 91.0 fL Normal 80.0-98.0 [facility] Comment on above: Performed By: #### HEMDF, BM P3, CRP2, ESR #### [place] [address] [place], [place] Monocytes (Bld) [#/Vol] 0.1 10*3/uL Normal 0.0-0.8 [facility] Comment on above: Performed By: #### HEMDF, BM P3, CRP2, ESR #### [place] [address] [address], [place] Monocytes/100 WBC (Bld) 1.1 % Low 2.0-10.0 [facility] Comment on above: Performed By: #### HEMDF, BM P3, CRP2, ESR #### [place] [address] [address] [place], [place] Platelet mean volume (Bld) [Entitic vol] 7.6 fL Normal 7.4-10.4 [facility] Comment on above: Performed By: #### HEMDF, BM P3, CRP2, ESR #### [place] [address] [address], [place] Platelets (Bld) [#/Vol] 395 10*3/uL Normal 140-440 [facility] Comment on above: Performed By: #### HEMDF, BM P3, CRP2, ESR #### [place] [address] [address], [place] RBC (Bld) [#/Vol] 3.94 10*6/uL Low 4.40-5.90 [facility] Comment on above: Performed By: #### HEMDF, BM P3, CRP2, ESR #### [place] [address] [address], [place] WBC (Bld) [#/Vol] 9.2 10*3/uL Normal 3.6-10.7 [facility] Comment on above: Performed By: #### HEMDF, BM P3, CRP2, ESR #### [place] [address] [address], [place] MRI Spine Lumbar w/o Contrast on 2018 MRI Spine Lumbar w/o Patient Name: CASSI FAULKNER V Normal [facility] Contrast MRI Exam Date/Time 03/10/2019 15:03:40 EDT Exam MRI Spine Lumbar w/o Contrast Ordering Physician MD CARA, [email or web address] Accession Number [id number] CPT4 Codes 61236 () Reason For Exam Lumbar radiculopathy,Trauma Report Examination: MRI lumbar spine Indication: Lumbar radiculopathy,Trauma Technique: Multiplanar multi-sequence MRI images of the lumbar sp ine were obtained. Findings: There is irregularity of the vertebral body endplates at the L4/L5 disc space level with fluid in the disc space. There i s diffuse marrow edema of the L4 and L5 vertebral bodies. Mild edema of the psoas musculature is present bilater ally. There is a small fluid collection medially within the left psoas muscle at the L4/L5 disc space level as demonstrated on axial image 25 which measures 1 x 1.2 cm in size. 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 The lumbar vertebral bodies are in gross anatomic alig nment. The conus terminates at approximately the T12/L1 level. Th e paraspinal musculature is Small upper pole renal cyst on the left measures 1.6 c m. At the L1/L2 level, the central canal foramina are pat ent. At the L2/L3 level, the central canal and foramina are patent. At the L3/L4 level, the central canal and foramina are patent. At the L4/L5 level, there is a broad-based posterior d isc osteophyte complex. Fluid is present within this disc space. Ther e is small linear focus of fluid signal intensity posterior to th e L5 vertebral body on sagittal STIR image seven and there is a simil ar smaller focus posterior to the L4 vertebral body on sagittal STIR im age [age]. Moderate to severe narrowing of the central canal is p resent at this level with narrowing of the lateral recesses. There is moderate to severe bilateral foraminal stenosis. At the L5/S1 level, there are mild degenerative facet changes. There is mild posterior disc bulging. Mild narrowing of the central canal is present. Moderate right and [id number] left-side d foraminal narrowing is noted. Impression: Acute discitis/osteomyelitis at L4/L5. Inflammatory ch anges are present within the bilateral psoas musculature and the re is a small psoas abscess on the left adjacent to the L4 vertebral body. Small linear fluid signal intensity posterior to the L 4 and L5 vertebral bodies is thought to most likely represent e jodee acute epidural abscess. Significant narrowing of the central canal and lateral recesses as well as the foramina at L4/L5. This was discussed with the patient and the he was dir ected to the [facility] emergency department. I also discussed this case with the emergency room charge nurse at approximately 3:30 PM o n 03/10/2019.. Report Dictated on Final Dictated: 03/10/2019 3:29 pm Dictating Physician: MD OROPEZA KRIKOR Signed Date and Time: 03/10/2019 3:40 pm Signed by: MD OROPEZA KRIKOR Transcribed Date and Time: 03/10/2019 3:29 Sed Rate on 03-10-2019 Sed Rate 123 mm/h High 0-10 [facility] Comment on above: Performed By: #### HEMDF, BM P3, CRP2, ESR #### [facility] [address] [place] [id number] Vital Signs Date Time Vital Sign Value Performing Clinician Facilit y 11-26-2021 Body temperature 98.6 [degF] JONN STOUT MD [facility] 18:49-0400 Wo rk 11-26-2021 Diastolic blood 86 mm[Hg] JONN STOUT MD [facility] 18:49-0400 pressure Wo rk 11-26-2021 Heart rate 83 /min JONN STOUT MD [facility] 18:49-[facility]00 Wo rk 11-26-2021 Respiratory rate 20 /min JONN STOUT MD [facility] 18:49-0400 Wo rk 11-26-2021 Systolic blood 159 mm[Hg] JONN Cabrera ospital [facility] 18:49-0400 pressure Wo rk Encounters Encounter Date Encounter Type Care Provider Facility Start: 11-26-2021 Emergency department OJNN STOUT MD [facility] End: 11-26-2021 patient visit Work P nicolas: Start: 02-12-2020 [facility] [address] [facility] End: 02-12-2020 visit by physician Work Phone: Comment on above: Arrived Procedures Date Procedure Procedure Detail Performing Clin ician Start: 02-12-2020 Mri any jt upper extremity Will jozefrebeca Goodman w/o contrast matrl Work Phone: Start: 03-18-2019 Microscopic examination of blood, culture Comment on above: Order Comment: Specimen Sour ce Comment:Blood Performed By: #### HEMDF, BM P3, CRP2, ESR #### [facility] [address], [place] Start: 03-13-2019 Microscopic examination of blood, culture Comment on above: Order Comment: Specimen Sour ce Comment:Blood Performed By: #### HEMDF, BM P3, CRP2, ESR #### [employer] [place] [address] [address], [place] Plan of Treatment Date Care Activity Detail Author Start: Influenza vaccination Flu vaccine (Season Ended) [facility]- 04-16-2020 [place] Start: Creatinine measurement Creatinine monitoring [facility] 03-13-2020 [place] Start: Potassium monitoring Potassium monitoring [facility] 03-13-2020 [place] Start: HbA1c (Bld) [Mass fraction] A1C test (Diabetic o r [facility]03-12-2020 Prediabetic) [place] Start: TSH Qn TSH testing [facility] 03-12-2020 [place] Start: Lipid panel Lipid screen [facility] 02-02-2020 [place] Start: Screening for malignant Colon Cancer Screen [facility]12-25-2017 neoplasm of colon FIT/FOBT [place] Start: Shingles Vaccine (1 of 2) Shingles Vaccine (1 of 2) [facility]2010 [place] Start: DTaP/Tdap/Td vaccine (1 - DTaP/Tdap/Td vaccine ( 1 - [facility] Tdap) Tdap) [place] Start: Hepatitis B vaccine (1 of 3 Hepatitis B vaccine (1 of 3 [facility] 1979 - Risk 3-dose series) - Risk 3-dose series) [place] Start: Diabetic microalbuminuria Diabetic microalbuminu joseph [facility] 1978 test test [place] Start: HIV screening HIV screen [facility] 1975 [place] Start: Diabetic foot examination Diabetic foot exam [facility] [place] Start: Diabetic retinal exam Diabetic retinal exam [facility] [place] Start: Hepatitis C screening Hepatitis C screen [facility] 1960 [place] Payers Date Payer Category Payer Unknown [employer] xx xxxxxxxxxx [address] xxxxxxxxxxxx [id number] 2018-Present [phone] [address] [place] [address] Social History Date Type Detail Facility Start: 03-15-2019 Tobacco smoking status Never smoker [place] [facility] Start: 03-15-2019 Alcohol intake Current non-drinker of [place] alcohol (finding) Sex Assigned At Not on file [place] Goals Date Patient Goal Desired Activity/Sta te Comment on above: ..Self- Management Plan: Obe sity/Weight Loss Patient Stated Goal: Continu e to loose weight Barriers to success: lack of motivation Plan for overcoming my barri ers: lifestyle changes and motivate myself. Encouraged and recommended by provider. Confidence: 03/25 Self-Management Plan: Will s trive to achieve goal by 01/2018 Date goal set: 12/24/16 Patient given educational ma terials below via AVS. Provider Goal: Healthy diet and exercise. Patient received counseling about current lifestyle goal. Advised approximately 150 minutes of cardio, i.e treadmill, exercise in a week. Advised strive for 5 a total 5 servings of fruit s and vegetables in a day. Advised a diet lower in carbohydrates and simple sugars. They need to watch consumption of bread, rice, pasta, potatoes, corn, soda, sweetened tea, lemonade, and all other sugar drinks. Patient given after visit [facility] which includes educational information on Nutrition. Discussed use, benefit, and side effects of prescribed medications and barriers to medication compliance addressed, if applicable. All patient questions answered and patient voiced understanding. Dg keane was given a copy of this, and was advised to call if any questions. Functional Status Date Assessment Result Facility 11-26-2021 Functional Status [facility] Work Phone: 11-26-2021 Functional Status [facility] Work Phone: Mental Status Date Assessment Result Facility 11-26-2021 Mental Status [facility] Work Phone: 11-26-2021 Mental Status [facility] Work Phone: Hospital Discharge instructions 11-26-2021 Note Date & Type Note Facility 11-26-2021 Hospital Discharge Patient Education 11/26/2021 20:11:20 Ankle Sprain (Adult) Ankle Sprain (Adult) [facility] instructions Work Phone: An ankle sprain is a stretch ing or tearing of the ligaments that hold the ankle joint together. There are no broken bones. An ankle sprain is a common injury for both children and adults. It happens when the ankle turns, twists, or rolls in an awkward way. This can be caused by a sports injury. Or it can happen from doing s omething as simple as stepping on an une tai surface. Ligaments are made of tough connective tissue. Normally, ligaments stretch a certain amount and then go back to their normal place. A sprain happens when a ligament is forced to stretch more than the no rmal amount. A severe sprain can actually tear the ligaments. If you have a severe sprain, you may have felt or heard something like a pop when you were injured. Ankle sprains are given a gr erik depending on whether they are mild, moderate, or severe: Grade 1 sprain. A mild spra in with minor stretching and damage to the ligament. Grade 2 sprain. A moderate sprain where the ligament is partly torn. Grade 3 sprain. The most se pb kind of sprain. The ligament is completely torn. Most sprains take about 4 to 6 weeks to heal. A severe sprain can take several months to recover. Your healthcare provider may order X-rays to be sure you don t have a fracture, or broken bone. The injured area will feel s ore. Swelling and pain may make it hard to walk. You may need crutches if walking is painful. Or your provider may have you use a cast boot or air splint. This will depend on the grade of ankle sprain that you have. Home care For a Grade 1 sprain, use RICE (rest, i ce, compression, and elevation): Rest your ankle. Don t walk on it. Ice should be used right aw ay to help control swelling. Place an ice pack over the injured area for 20 minutes. Do this every 3 to 6 hours for the first 24 to 48 hours. Keep using ice packs to ease rebecca n and swelling as needed. To make an ice pack, put ice cubes in a plastic bag that seals at the top. Wrap the bag in a clean, thin towel or cloth. Never put ice or an ice pack directly on the skin. The ice pack can be put right on the cast, bandage, or splint. As the ice melts, be careful that the cast, bandage, or splint doesn t get wet. If you have a boot, open it to apply an ice pack, unless told otherwise by your provider. Compression devices help to control swelling. They also keep the ankle from moving and support your injured ankle. These devices include dressings, bandages, and wraps. Elevate or raise your ankle above the level of your heart when sitting or lying down. This is very important for the first 48 hours. Follow the RICE guidelines for a Grade 2 sprain. This type of sprain will take longer to heal. Your provider may have you wear a splint, cast, or brace to keep your ankle from moving. If you have a Grade 3 sprai n, you are at risk for long-term ankle instability. In rare cases, surgery may be needed. Your provider may have you wear a short leg cast or a walking boot for 2 to 3 weeks. After 48 hours, it may be h elpful to apply heat for 20 minutes several times a day. You can do this with a heating pad or warm compress. Or you may want to go back and forth between using ice and heat. Never apply heat directly t o the skin. Always wrap the heating pad or warm compress in a clean, thin towel or cloth. You may use rcxl-qhq-facmhy r pain medicine (NSAIDS or nonsteroidal anti- inflammatory drugs) to control pain, unless another pain medicine was prescribed. Talk with your provider before using these medi cines if you have chronic li magda or kidney disease, or have ever had a stomach ulcer or gastrointestinal bleeding. Follow any rehabilitation e xercises your provider gives you. These can help you be more flexible and improve your balance and coordination. This is helpful in preventing long-term ankle problems. Prevention To help prevent ankle sprain s, it s important to have good strength, balance, and flexibility. Be sure to: Always warm up before you exercise or d o something very active Be careful when walking or running on u garth or cracked surfaces Wear shoes that are in good condition a nd fit well Listen to your body s signals to slow d own when you are in pain or tired Follow-up care Any X-rays you had today don t show any broken bones, breaks, or fractures. Sometimes fractures don t show up on the first X-ray. Bruises and sprains can sometimes hurt as much as a fracture. These inju stephanie can take time to heal c ompletely. If your symptoms don t get better or they get worse, talk with your healthcare provider. You may need a repeat X-ray. Follow up with your healthca re provider, or as advised. Check for any warning signs listed below. When to seek medical advice Call your healthcare provider right away if any of these occur: Fever of 100.4 F (38 C) or higher, or a s directed by your healthcare provider Chills The injury doesn t seem to be healing The swelling comes back The cast or splint has a bad smell The plaster cast or splint gets wet or soft The fiberglass cast or splint gets wet and does not dry for 24 hours The pain or swelling increases, or redn ess appears Your toes become cold, blue, numb, or t ingly The skin is discolored (loo ks blue, purple, or malin), has blisters, or is irritated You re-injure your ankle [id number] [employer]. [address] [place] [address]. All rights reserved. This information is not intended as a substitute for professional medical care. Always follow your healthcare professional's instructions. Follow Up Care 11/26/2021 18:47:48 With:DILLON MARROQUIN MD Address: [facility] [address] [address] [place] [address]- When:2-4 days Comments:Make an appointment in 2 to 4 days with your physician. Return if you are worse in any way. 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 Grey Roll Man Latest Code Status on File Code Status Date Activated Date Inactivated Comments Full Code 03/11/2019 3:31 AM 03/17/2019 7:47 PM Summary Purpose Family History No Family History Records FoundNo Family History Records FoundNo Family History Records Found Additional Source Comments (unrecognized section and cont ent) No Status Records FoundNo Preg al Status Records FoundNo Status Records Found INFORMATION SOURCE (unrecognized section and content) DATE CREATED AUTHOR AUTHOR'S ORGANIZ ATION 03/05/2020 [facility] DATE CREATED AUTHOR AUTHOR'S ORGANIZATIO N 12/14/2021 [facility] Found ation ([place]) DATE CREATED AUTHOR AUTHOR'S ORGANIZATIO N 07/23/2022 [facility] Care Team (unrecognized section and cont ent) Personnel Name: DILLON MARROQUIN MD Address: [facility]/[address] [place] [id number]- FOR RECORDS PERTAINING TO PATIENTS WHO ARE OR HAVE BEEN ENROLLED IN A CHEMICAL DEPENDENCY/SUBSTANCE ABUSE PROGRAM, SOME INFORMATION MAY BE OMITTED. This clinical summary was aggregated from multiple sources. Caution should be exercised in using it in the provision of clinical care. This summary normalizes information from multiple sources, and as a consequence, information in this document may materially change the coding, format and clinical context of patient data. In addition, data may be omitted in some cases. CLINICAL DECISIONS SHOULD BE BASED ON THE PRIMARY CLINICAL RECORDS. [facility] provides no warranty or guarantee of the accuracy or completeness of information in this document.
--- NOTE | 2022-08-20 04:43 | EKG12_ITS ---
Test Reason : DYSRHYTHMIA Blood Pressure : / mmHG Vent. Rate : 104 BPM Atrial Rate : 104 BPM P-R Int : 156 ms QRS Dur : 086 ms QT Int : 338 ms P-R-T Axes : 057 034 066 degrees QTc Int : 444 ms Sinus tachycardia Otherwise normal ECG Confirmed by HUNTER HARO, JILL ([id number]), publishing editor CHAI ENGEL ([id number]) on 08/24/2022 10:10:35 AM Referred By: TULIO Confirmed By:ISMAEL HARRISON MD
--- NOTE | 2022-08-20 04:43 | RAD_ITS ---
STUDY: X-RAY CHEST REASON FOR EXAM: Male, 61 years old. dyspnea TECHNIQUE: Single AP portable view of the chest. COMPARISON: None. FINDINGS: The lungs Ill-defined subpleural groundglass opacities are seen more prominent in the lung bases , may represent atypical pneumonia or viral pneumonia (COVID-19 ?). are clear and expanded. There is no demonstrated pleural abnormality. Normal size heart. Normal mediastinum and miriam. Normal visualized pulmonary arteries. Normal visualized aortic arch and descending thoracic aorta. Normal visualized thoracic spine. Normal visualized ribs, clavicles, and shoulders. There is no demonstrated abnormality of the visualized soft tissue structures of the upper abdomen. RAD/Chest 1 View (Portable) IMPRESSION: The lungs Ill-defined subpleural groundglass opacities are seen more prominent in the lung bases , may represent atypical pneumonia or viral pneumonia (COVID-19 ?). are clear and expanded. Electronically Signed: Yoana Benz MD at 5:35 EST ,
[2022-08-20 04:55] LABS: Absolute Lymphocyte Count 0.49 X10^3/uL (0.83-4.51); Absolute Neutrophil Count 4.5 X10^3/uL (2.0-7.7); Basophil# 0.01 X10^3/uL; Basophil% 0.2 % (0-1); Hematocrit 44.1 % (40-54); Hemoglobin 15.1 g/dL (13.0-16.5); Lymphocyte # 0.49 X10^3/ul (0.83-4.51); Lymphocyte % 9.1 % (19-41); Mean Corp Hgb Conc 34.2 g/dL (32-36); Mean Corpuscular Hgb 31.4 pg (27.0-32.0); Mean Corpuscular Volume 91.7 fL (80-94); Mean Platelet Vol. 11.3 fl (6.2-12.0); Monocyte# 0.37 X10^3/uL; Monocyte% 6.9 % (0-10); NRBC Flagged by Analyzer 0 % (0-5); Neutrophil # 4.46 X10^3/uL (2.7-7.7); Neutrophil % 83.1 % (47-70); POSITIVE DIFFERENTIAL YES; Platelet Count 180 K/mm3 (150-450); RBC Distribution Width CV 11.7 % (11.6-14.6); RBC Distribution Width SD 39.7 fl (35.1-43.9); Red Blood Count 4.81 M/mm3 (4.6-6.2); White Blood Count 5.4 K/mm3 (4.4-11.0)
[2022-08-20] MEDS: Acetaminophen 500 MG Tablet 1000 MG PO (04:56)
[2022-08-20 04:57] LABS: Differential Indicated SCAN CRITERIA MET
[2022-08-20] MEDS: 0.9% Normal Saline 1,000 ML 999 ML IV (04:58)
[2022-08-20 05:00] LABS: Allen Test Positive; Base Excess 0 mmol/L (-2 to +2); Bicarbonate 23.9 mmol/L (22-26); Blood Gas Specimen Type ART; O2 Delivery Device Room Air; PO2 52 mmHG (75-100); SITE L Radial; SO2 89 % (95-99); Total Carbon Dioxide 25 mmol/L; pCO2 32.8 mmHg (35-45); pH 7.47 (7.35-7.45)
[2022-08-20 05:00] LABS: Bedside Glucose 391 mg/dL (74-106)
[2022-08-20 05:11] LABS: AST(SGOT) 48 U/L (15-37); Alanine Aminotransfer ALT/SGPT 47 U/L (16-61); Albumin, Serum 2.5 g/dL (3.2-5.0); Alkaline Phosphatase 91 U/L (45-117); Anion Gap 7 (5-15); BUN 13 mg/dL (7-18); BUN/Creat Ratio 12.6 RATIO (10-20); Bilirubin, Direct 0.16 mg/dL (0.00-0.30); Calcium,Total 8.5 mg/dL (8.5-10.1); Chloride 88 mmol/L (98-107); Creatinine, Serum 1.03 mg/dL (0.70-1.30); Differential Comment SCANNED; EST Glomerular Filtration Rate 78 mL/min (>60); Est Glom Filt Rate - Afr Amer 94 mL/min (>60); Estimated Creatinine Clearance 75.31 ml/min; Globulin 4.6 g/dL (2.2-4.2); Glucose 364 mg/dL (74-106); Magnesium 1.8 mg/dL (1.6-2.6); Potassium 4.2 mmol/L (3.5-5.1); Protein, Total 7.1 g/dL (6.4-8.2); Sodium Level 123 mmol/L (136-145)
[2022-08-20 05:11] LABS: Lactic Acid 1.5 mmol/L (0.4-1.9)
[2022-08-20 05:27] LABS: Mucous, Urine 0 SEEN /hpf (<or=2+); White Blood Cells 0 SEEN /hpf (0-5)
[2022-08-20 05:29] LABS: Color, Urine Yellow (Yellow); Glucose, Dipstick 1000 mg/dl (Normal); Ketone-Dipstick 50 mg/dl (Negative); Leukocyte Esterase-Dipstick Negative /ul (Negative); Nitrite-Dipstick Negative (Negative); Occult Blood-Urine 250 /ul (Negative); Protein-Dipstick 500 mg/dl (Negative); Urine Bilirubin Dipstick Negative (Negative); Urine Clarity Clear (Clear); Urine Urobilinogen Normal (Normal)
[2022-08-20 05:36] LABS: Bacteria RARE /hpf (None Seen); Red Blood Cells-Urine 0-5 SEEN /hpf (0-5); Squamous Epithelial Cells - UA 0-5 SEEN /hpf (0-5)
--- OUTSIDE RECORDS SUMMARY | 2022-08-20 05:42 | XMS RPT_ITS | CCD ---
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 Left VM Normal [facility] requesting callback to office. 36 Called patient back to advis e ED. No answer. LVM requesting patient to call back Normal [facility] office. 36 S: Patient spoke with [facility] nurse helga laguna Pt states legs have been very weak Normal [facility] B: Onset couple months A: Pt having [...] speaking in full sentences. 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 Speech clear. Pt was seeing in [place]. [...] with complaint of Pt states legs Normal [facility] have been very weak B: [...] XR ANKLE AND FOOT 6 ORIGINAL Normal [facility] VIEWS RIGHT EXAMINATION: ([place]) 6 x-ray views [...] Date: 11/26/2021 7:51:34 PM Ordering Provider: JONN STOUT MRI Up Ext Joint w/o Contrast Right on 02-12-2020 MRI Up Ext Joint w/o Patient Name: CASSI FAULKNER V Normal [facility] Contrast Right MRI Exam Date/Time 02/12/2020 07:26:00 EDT Exam MRI Up Ext Joint w/o Contrast Right Ordering Physician GUICHO GOODMAN MICHELLE Accession Number [id number] CPT4 Codes 17947 () Reason For Exam Impingement syndrome of [...] 02-12-2020 Patient Name: CASSI FAULKNER V FIN: [place], [place] [id number] ---MRI--- Exam Date/Time 02/12/2020 07:26 :00 EDT Exam MRI Up Ext Joint w/o Contrast Right Ordering Physician GUICHO GOODMAN MICHELLE Accession Number [id number] CPT4 Codes 30081 () Reason For Exam Impingement syndrome of [...] [facility] - 8:34 AM EDT [place] Patient Name: CASSI FAULKNER V ---MRI--- Exam Date/Time 02/12/2020 07:26:00 EDT Exam MRI Up Ext Joint w/o Contrast Right Ordering Physician GUICHO GOODMAN MICHELLE Accession Number [id number] CPT4 Codes 48747 () Reason For Exam Impingement syndrome of [...] 03-17-2019 Glucose [Mass/Vol] 124 mg/dL High 70-100 [facility] Comment on above: Result Comment: Test perform ed by glucose meter. Results may be 10%-15% lower than serum/plasma values. (C LIO ID [id number]) Performed By: #### BGLU #### [facility] [address] [address] Glucose [Mass/Vol] 150 mg/dL High 70-100 [facility] Comment on above: Result Comment: Test perform ed by glucose meter. Results may be 10%-15% lower than serum/plasma values. (C LIO ID [id number]) Performed By: #### BGLU #### [facility] [address] [address] CR Chest Portable on 03-16-2019 CR Chest Portable Patient Name: CASSI FAULKNER [facility] Diagnostic Radiology Exam Date/Time 03/16/2019 16:45:39 EDT Exam CR Chest Portable Ordering Physician DO LOPEZ KATHRYN C Accession Number [id number] CPT4 Codes 80418 () Reason For Exam line placement Report [...] ANAEROBE CULTURE ANAEROBE --> Status: F Normal [facility] No growth of anaerobes at 5 days. Comment on above: Order Comment: Specimen stacy ected in O.R.; received on swab. Performed By: #### HEMDF, BM P3, CRP2, ESR #### [facility] System [address] [place] [address] Glucose,Bedside on 03-16-2019 Glucose [Mass/Vol] 131 mg/dL High 70-100 [facility] Comment on above: Result Comment: Test perform ed by glucose meter. Results may be 10%-15% lower than serum/plasma values. (C LIO ID [id number]) Performed By: #### BGLU #### [facility] [address] [place] [address] Glucose [Mass/Vol] 145 mg/dL High 70-100 [facility] Comment on above: Result Comment: Test perform ed by glucose meter. Results may be 10%-15% lower than serum/plasma values. (C LIO ID [id number]) Performed By: #### BGLU #### [facility] [address] [place] [address] Glucose [Mass/Vol] 161 mg/dL High 70-100 [facility] Comment on above: Result Comment: Test perform ed by glucose meter. Results may be 10%-15% lower than serum/plasma values. (C LIO ID [id number]) Performed By: #### BGLU #### [facility] [place] [address] Glucose [Mass/Vol] 173 mg/dL High 70-100 [facility] Comment on above: Result Comment: Test perform ed by glucose meter. Results may be 10%-15% lower than serum/plasma values. (C LIO ID [id number]) Performed By: #### BGLU #### [facility] [address] [place] [address] Echo 2D/3D TORRES w/wo Contrast on 019 Echo Patient Name: CASSI FAULKNER V Normal [facility] 2D/3D TORRES [facility] w/wo System Contrast Ultrasound Exam Date/Time 03/15/2019 09:28:23 EDT Exam Echo 2D/3D TORRES w/wo Contrast Ordering Physician MD FATEMEH, TITO Accession Number [id number] Reason For Exam endocarditis, bacteremia Addendum TRANSESOPHAGEAL ECHOCARDIOGRAM (AMENDED REPORT ) PATIENT: Cassi Faulkner V STUDY DATE: 03/15/2019 : 1960 AGE: 58 HT/WT: 175.3 cm (69 161.4 kg (355 in) lb) GENDER: M BP: 144 / 82 LOCATION: [facility] PATIENT Inpatient [facility] STATUS: *ORDERING PHYSICIAN: * Tito Wang *RN: * Frieda Vargas *READING PHYSICIAN: * Janeen Hernadez *EMBEDDED SYSTEMS SOFTWARE DEVELOPER: * Sabina Land, CCT --- INDICATIONS: Endocarditis, [...] Doppler images were acquired and archived for [facility] [employer]To Yellow Pages and are available for subsequent review. Study [...] GENDER: M BP: 144 / 82 LOCATION: [facility] PATIENT Inpatient [facility] STATUS: *ORDERING PHYSICIAN: * Tito Wang *RN: * Frieda Vargas *READING PHYSICIAN: * Janeen Hernadez *EMBEDDED SYSTEMS SOFTWARE DEVELOPER: * Sabina Land [facility] --- INDICATIONS: Endocarditis, Bacteremia. --- CONCLUSIONS [...] 03-15-2019 Glucose [Mass/Vol] 136 mg/dL High 70-100 [facility] Comment on above: Result Comment: Test perform ed by glucose meter. Results may be 10%-15% lower than serum/plasma values. (C LIO ID [id number]) Performed By: #### BGLU #### [facility] [address] [place] [address] Glucose [Mass/Vol] 134 mg/dL High 70-100 [facility] Comment on above: Result Comment: Test perform ed by glucose meter. Results may be 10%-15% lower than serum/plasma values. (C LIO ID [id number]) Performed By: #### HEMDF, BM P3, CRP2, ESR #### [facility] [address] [place] [address] Glucose [Mass/Vol] 150 mg/dL High 70-100 [facility] Comment on above: Result Comment: Test perform ed by glucose meter. Results may be 10%-15% lower than serum/plasma values. (C LIO ID [id number]) Performed By: #### HEMDF, BM P3, CRP2, ESR #### [facility] [address] [place] [address] CULT./ST. BACTERIA on 03-14-2019 CULT./ST. STAIN GRAM [...] #### HEMDF, BM P3, CRP2, ESR #### [facility] [address] [place] [address] Glucose,Bedside on 03-14-2019 Glucose [Mass/Vol] 174 mg/dL High 70-100 [facility] Comment on above: Result Comment: Test perform ed by glucose meter. Results may be 10%-15% lower than serum/plasma values. (C LIO ID [id number]) Performed By: #### HEMDF, BM P3, CRP2, ESR #### [facility] [address] [place] [address] Glucose [Mass/Vol] 163 mg/dL High 70-100 [facility] Comment on above: Result Comment: Test perform ed by glucose meter. Results may be 10%-15% lower than serum/plasma values. (C LIO ID [id number]) Performed By: #### HEMDF, BM P3, CRP2, ESR #### [facility] [address] [place] [address] Glucose [Mass/Vol] 154 mg/dL High 70-100 [facility] Comment on above: Result Comment: Test perform ed by glucose meter. Results may be 10%-15% lower than serum/plasma values. (C LIO ID [id number]) Performed By: #### HEMDF, BM P3, CRP2, ESR #### [facility] [address] [place] [address] Glucose [Mass/Vol] 161 mg/dL High 70-100 [facility] Comment on above: Result Comment: Test perform ed by glucose meter. Results may be 10%-15% lower than serum/plasma values. (C LIO ID [id number]) Performed By: #### HEMDF, BM P3, CRP2, ESR #### [facility] [address] [place] [address] Hemogram w/ Autodiff on 03-14-2019 Abs Baso Cnt 0.0 10*3/uL Normal 0.0-0.2 [facility] Comment on above: Performed By: #### HEMDF, BM P3, CRP2, ESR #### [facility] [address] [place], [place] Abs Neutrophile Cnt 7.7 10*3/uL High 1.8-7.0 [facility] Comment on above: Performed By: #### HEMDF, BM P3, CRP2, ESR #### [facility] [address] [place], [place] Basophils/100 WBC (Bld) 0.2 % Normal 0.0-2.0 [facility] Comment on above: Performed By: #### HEMDF, BM P3, CRP2, ESR #### [facility] [address] [place], [place] Eosinophils (Bld) [#/Vol] 0.1 10*3/uL Normal 0.0-0.5 [facility] Comment on above: Performed By: #### HEMDF, BM P3, CRP2, ESR #### [facility] [address] [place], [place] Eosinophils/100 WBC (Bld) 0.8 % Low 1.0-6.0 [facility] Comment on above: Performed By: #### HEMDF, BM P3, CRP2, ESR #### [place] [address] [place], [place] Erythrocyte distribution width (RBC) 15.6 % High 11.5 -14.5 [facility] [Ratio] Comment on above: Performed By: #### HEMDF, BM P3, CRP2, ESR #### [facility] [address] [place], [place] Granulocytes/100 WBC (Bld) 77.6 % Normal 40.0-80.0 [facility] Comment on above: Performed By: #### HEMDF, BM P3, CRP2, ESR #### [facility] [address] [place], [place] Hematocrit (Bld) [Volume fraction] 32.8 % Low 40.0-5 2.0 [facility] Comment on above: Performed By: #### HEMDF, BM P3, CRP2, ESR #### [place] [address] [place], [place] Hemoglobin (Bld) [Mass/Vol] 11.3 g/dL Low 13.0-18.0 [facility] Comment on above: Performed By: #### HEMDF, BM P3, CRP2, ESR #### [place] [address] [place], [place] Lymphocytes (Bld) [#/Vol] 1.0 10*3/uL Normal 1.0-4.3 [facility] Comment on above: Performed By: #### HEMDF, BM P3, CRP2, ESR #### [place] [address] [place], [place] Lymphocytes/100 WBC (Bld) 9.9 % Low 20.0-40.0 [facility] Comment on above: Performed By: #### HEMDF, BM P3, CRP2, ESR #### [place] [address] [place], [place] MCH (RBC) [Entitic mass] 31.4 pg Normal 26.0-34.0 [facility] Comment on above: Performed By: #### HEMDF, BM P3, CRP2, ESR #### [address] [place], [place] MCHC (RBC) [Mass/Vol] 34.4 % Normal 32.0-36.0 [facility] Comment on above: Performed By: #### HEMDF, BM P3, CRP2, ESR #### [place] [address] [place], [place] MCV (RBC) [Entitic vol] 91.3 fL Normal 80.0-98.0 [facility] Comment on above: Performed By: #### HEMDF, BM P3, CRP2, ESR #### [place] [address] [place], [place] Monocytes (Bld) [#/Vol] 1.1 10*3/uL High 0.0-0.8 [facility] Comment on above: Performed By: #### HEMDF, BM P3, CRP2, ESR #### [place] [address] [place], [place] Monocytes/100 WBC (Bld) 11.5 % High 2.0-10.0 [facility] Comment on above: Performed By: #### HEMDF, BM P3, CRP2, ESR #### [place] [address] [address] [place], [place] Platelet mean volume (Bld) [Entitic vol] 7.4 fL Normal 7.4-10.4 [facility] Comment on above: Performed By: #### HEMDF, BM P3, CRP2, ESR #### [place] [address] [place], [place] Platelets (Bld) [#/Vol] 247 10*3/uL Normal 140-440 [facility] Comment on above: Performed By: #### HEMDF, BM P3, CRP2, ESR #### [place] [address] [place], [place] RBC (Bld) [#/Vol] 3.59 10*6/uL Low 4.40-5.90 [facility] Comment on above: Performed By: #### HEMDF, BM P3, CRP2, ESR #### [address] [place], [place] WBC (Bld) [#/Vol] 10.0 10*3/uL Normal 3.6-10.7 [facility] Comment on above: Performed By: #### HEMDF, BM P3, CRP2, ESR #### [address] [place], [place] Basic Metabolic Panel on 03-13-2019 Anion gap [Moles/Vol] 10 Normal [facility] Comment on above: Performed By: #### HEMDF, BM P3, CRP2, ESR #### [address] [place], [place] Calcium [Mass/Vol] 9.0 mg/dL Normal 8.4-10.4 [facility] Comment on above: Performed By: #### HEMDF, BM P3, CRP2, ESR #### [facility] [address], [place] CO2 [Moles/Vol] 28 mmol/L Normal 22-30 [facility] Comment on above: Performed By: #### HEMDF, BM P3, CRP2, ESR #### [facility] [address] [place], [place] Glucose [Mass/Vol] 155 mg/dL High 70-100 [facility] Comment on above: Performed By: #### HEMDF, BM P3, CRP2, ESR #### [facility] [address] [place], [place] Urea nitrogen [Mass/Vol] 22 mg/dL High 7-20 [facility] Comment on above: Performed By: #### HEMDF, BM P3, CRP2, ESR #### [place] [address] [place], [place] Creatinine [Mass/Vol] 0.80 mg/dL Normal 0.52-1.25 [facility] Comment on above: Performed By: #### HEMDF, BM P3, CRP2, ESR #### [facility] [address], [place] GFR/1.73 sq M predicted among blacks mL/min/{1.73_m2} Normal >60 [facility] MDRD (S/P/Bld) [Vol rate/Area] Comment on above: Performed By: #### HEMDF, BM P3, CRP2, ESR #### [facility] [address] [place], [place] GFR/1.73 sq M predicted among mL/min/{1.73_m2} Normal >60 [facility] non-blacks MDRD (S/P/Bld) [Vol rate/Area] Comment on above: Result Comment: Source- MDRD equation with creatinine calibration to IDMS(NKDEP) eGFR not recommended for elton g dose adjustment Performed By: #### HEMDF, BM P3, CRP2, ESR #### [facility] [address] [place], [place] Potassium [Moles/Vol] 4.5 mmol/L Normal 3.5-5.1 [facility] Comment on above: Performed By: #### HEMDF, BM P3, CRP2, ESR #### [facility] [address] [place], [place] Sodium [Moles/Vol] 134 mmol/L Low 135-145 [facility] Comment on above: Performed By: #### HEMDF, BM P3, CRP2, ESR #### [facility] [address] [place], [place] Chloride [Moles/Vol] 96 mmol/L Low 98-107 [facility] Comment on above: Performed By: #### HEMDF, BM P3, CRP2, ESR #### [facility] [address], [place] Echo Complete w/wo Contrast on 03-13-20 19 Echo Patient Name: CASSI FAULKNER V Normal [facility] Complete [facility] w/wo System Contrast Ultrasound Exam Date/Time 03/13/2019 12:00:28 EDT Exam Echo Complete w/wo Contrast Ordering Physician [id number] SAMIR HERNANDEZ Accession Number [id number] Reason For Exam Blood culture positive for staphylococcal aureus Report TRANSTHORACIC ECHOCARDIOGRAM PATIENT: Cassi Faulkner V STUDY DATE: 03/13/2019 : 1960 AGE: 58 HT/WT: 175.3 cm (69 160.6 kg (353.3 in) lb) GENDER: M BP: 161 / 88 LOCATION: [facility] PATIENT Inpatient [facility] STATUS: *ORDERING PHYSICIAN: * Samir Gibbs *READING PHYSICIAN: * Olegario Wynn, *EMBEDDED SYSTEMS SOFTWARE DEVELOPER : * AR Villavicencio DO, [facility] Sohan ESTRADA --- INDICATIONS: Blood culture positive [...] Electronically signed by Olegario Wynn DO, FS, [facility] 03/13/2019 16:44 Final Dictated: 03/13/2019 4:45 pm Dictating Physician: DO WYNN JOSEPH Signed Date and Time: 03/13/2019 4:45 pm Signed by: DO WYNN JOSEPH Glucose,Bedside on 03-13-2019 Glucose [Mass/Vol] 224 mg/dL High 70-100 [facility] Comment on above: Result Comment: Test perform ed by glucose meter. Results may be 10%-15% lower than serum/plasma values. (C LIO ID [id number]) Performed By: #### HEMDF, BM P3, CRP2, ESR #### [facility] [address] [place] [address] Glucose [Mass/Vol] 163 mg/dL High 70-100 [facility] Comment on above: Result Comment: Test perform ed by glucose meter. Results may be 10%-15% lower than serum/plasma values. (C LIO ID [id number]) Performed By: #### HEMDF, BM P3, CRP2, ESR #### [facility] [address] [place] [address] Glucose [Mass/Vol] 130 mg/dL High 70-100 [facility] Comment on above: Result Comment: Test perform ed by glucose meter. Results may be 10%-15% lower than serum/plasma values. (C LIO ID [id number]) Performed By: #### HEMDF, BM P3, CRP2, ESR #### [facility] [address] [place], [place] Hemogram w/ Autodiff on 03-13-2019 Abs Baso Cnt 0.0 10*3/uL Normal 0.0-0.2 [facility] Comment on above: Performed By: #### HEMDF, BM P3, CRP2, ESR #### [facility] [address] [place], [place] Abs Neutrophile Cnt 7.9 10*3/uL High 1.8-7.0 [facility] Comment on above: Performed By: #### HEMDF, BM P3, CRP2, ESR #### [place] [address] [place], [place] Basophils/100 WBC (Bld) 0.1 % Normal 0.0-2.0 [facility] Comment on above: Performed By: #### HEMDF, BM P3, CRP2, ESR #### [place] [address] [place], [place] Eosinophils (Bld) [#/Vol] 0.1 10*3/uL Normal 0.0-0.5 [facility] Comment on above: Performed By: #### HEMDF, BM P3, CRP2, ESR #### [place] [address] [place], [place] Eosinophils/100 WBC (Bld) 0.6 % Low 1.0-6.0 [facility] Comment on above: Performed By: #### HEMDF, BM P3, CRP2, ESR #### [place] [address] [place], [place] Erythrocyte distribution width (RBC) 15.7 % High 11.5 -14.5 [facility] [Ratio] Comment on above: Performed By: #### HEMDF, BM P3, CRP2, ESR #### [place] [address] [place], [place] Granulocytes/100 WBC (Bld) 75.5 % Normal 40.0-80.0 [facility] Comment on above: Performed By: #### HEMDF, BM P3, CRP2, ESR #### [place] [address] [place], [place] Hematocrit (Bld) [Volume fraction] 32.0 % Low 40.0-5 2.0 [facility] Comment on above: Performed By: #### HEMDF, BM P3, CRP2, ESR #### [place] [address] [place], [place] Hemoglobin (Bld) [Mass/Vol] 11.0 g/dL Low 13.0-18.0 [facility] Comment on above: Performed By: #### HEMDF, BM P3, CRP2, ESR #### [place] [address] [place], [place] Lymphocytes (Bld) [#/Vol] 1.1 10*3/uL Normal 1.0-4.3 [facility] Comment on above: Performed By: #### HEMDF, BM P3, CRP2, ESR #### [place] [address] [place], [place] Lymphocytes/100 WBC (Bld) 10.1 % Low 20.0-40.0 [facility] Comment on above: Performed By: #### HEMDF, BM P3, CRP2, ESR #### [place] [address] [place], [place] MCH (RBC) [Entitic mass] 31.4 pg Normal 26.0-34.0 [facility] Comment on above: Performed By: #### HEMDF, BM P3, CRP2, ESR #### [place] [address] [place], [place] MCHC (RBC) [Mass/Vol] 34.3 % Normal 32.0-36.0 [facility] Comment on above: Performed By: #### HEMDF, BM P3, CRP2, ESR #### [place] [address] [place], [place] MCV (RBC) [Entitic vol] 91.6 fL Normal 80.0-98.0 [facility] Comment on above: Performed By: #### HEMDF, BM P3, CRP2, ESR #### [place] [address] [place], [place] Monocytes (Bld) [#/Vol] 1.4 10*3/uL High 0.0-0.8 [facility] Comment on above: Performed By: #### HEMDF, BM P3, CRP2, ESR #### [place] [address] [place], [place] Monocytes/100 WBC (Bld) 13.7 % High 2.0-10.0 [facility] Comment on above: Performed By: #### HEMDF, BM P3, CRP2, ESR #### [place] [address] [place], [place] Platelet mean volume (Bld) [Entitic vol] 7.4 fL Normal 7.4-10.4 [facility] Comment on above: Performed By: #### HEMDF, BM P3, CRP2, ESR #### [place] [address] [place], [place] Platelets (Bld) [#/Vol] 312 10*3/uL Normal 140-440 [facility] Comment on above: Performed By: #### HEMDF, BM P3, CRP2, ESR #### [place] [address] [place], [place] RBC (Bld) [#/Vol] 3.50 10*6/uL Low 4.40-5.90 [facility] Comment on above: Performed By: #### HEMDF, BM P3, CRP2, ESR #### [place] [address] [place], [place] WBC (Bld) [#/Vol] 10.5 10*3/uL Normal 3.6-10.7 [facility] Comment on above: Performed By: #### HEMDF, BM P3, CRP2, ESR #### [place] [address] [place], [place] Lactic Acid on 03-13-2019 Lactate [Moles/Vol] 0.8 mmol/L Normal 0.7-2.0 [facility] Comment on above: Performed By: #### HEMDF, BM P3, CRP2, ESR #### [place] [address] [place], [place] Arterial Blood Gases on 03-12-2019 CO2 [Moles/Vol] 27.8 mmol/L High 23.0-27.0 [facility] Comment on above: Performed By: #### HEMDF, BM P3, CRP2, ESR #### [place] [address] [place] HCO3 (Bld) [Moles/Vol] 26.5 mmol/L High 21.0-25.0 [facility] Comment on above: Performed By: #### HEMDF, BM P3, CRP2, ESR #### [address] [place] Hemoglobin (Bld) [Mass/Vol] 11.1 g/dL Normal ScreenOnly [facility] Comment on above: Performed By: #### HEMDF, BM P3, CRP2, ESR #### [place] [address] [place], [place] Oxygen (Bld) [Partial pressure] 105.2 mm[Hg] High 80.0-100. 0 [facility] Comment on above: Performed By: #### HEMDF, BM P3, CRP2, ESR #### [place] [address] [place], [place] Oxygen saturation in Blood 97.8 % Normal 95.0-100.0 [facility] Comment on above: Performed By: #### HEMDF, BM P3, CRP2, ESR #### [place] [address] [place], [place] pCO2 41.2 mm[Hg] Normal 35.0-45.0 [facility] Comment on above: Performed By: #### HEMDF, BM P3, CRP2, ESR #### [place] [address] [place], [place] pH (Bld) 7.427 Normal 7.350-7.450 [facility] Comment on above: Performed By: #### HEMDF, BM P3, CRP2, ESR #### [facility] [address], [place] Std Base Excess 2.0 mmol/L Normal -3.0-3.0 [facility] Comment on above: Performed By: #### HEMDF, BM P3, CRP2, ESR #### [facility] [address] [place], [place] FIO2 3l Normal [facility] Comment on above: Performed By: #### HEMDF, BM P3, CRP2, ESR #### [facility] [address] [place], [place] Comp Metabolic Panel on 03-12-2019 ALP [Catalytic activity/Vol] 88 U/L Normal 38-126 [facility] Comment on above: Performed By: #### HEMDF, BM P3, CRP2, ESR #### [place] [address] [place], [place] ALT [Catalytic activity/Vol] 22 U/L Normal 13-69 [facility] Comment on above: Performed By: #### HEMDF, BM P3, CRP2, ESR #### [place] [address] [place], [place] Anion gap [Moles/Vol] 10 Normal [facility] Comment on above: Performed By: #### HEMDF, BM P3, CRP2, ESR #### [place] [address] [place], [place] AST [Catalytic activity/Vol] 30 U/L Normal 15-46 [facility] Comment on above: Performed By: #### HEMDF, BM P3, CRP2, ESR #### [place] [address] [place], [place] Bilirubin [Mass/Vol] 0.2 mg/dL Normal 0.2-1.3 [facility] Comment on above: Performed By: #### HEMDF, BM P3, CRP2, ESR #### [place] [address] [place], [place] Calcium [Mass/Vol] 9.4 mg/dL Normal 8.4-10.4 [facility] Comment on above: Performed By: #### HEMDF, BM P3, CRP2, ESR #### [place] [address] [place] CO2 [Moles/Vol] 28 mmol/L Normal 22-30 [facility] Comment on above: Performed By: #### HEMDF, BM P3, CRP2, ESR #### [place] [address] [place], [place] Glucose [Mass/Vol] 182 mg/dL High 70-100 [facility] Comment on above: Performed By: #### HEMDF, BM P3, CRP2, ESR #### [place] [address] [place], [place] Protein [Mass/Vol] 6.8 g/dL Normal 6.3-8.2 [facility] Comment on above: Performed By: #### HEMDF, BM P3, CRP2, ESR #### [place] [address] [place], [place] Urea nitrogen [Mass/Vol] 24 mg/dL High 7-20 [facility] Comment on above: Performed By: #### HEMDF, BM P3, CRP2, ESR #### [place] [address] [place] Creatinine [Mass/Vol] 0.82 mg/dL Normal 0.52-1.25 [facility] Comment on above: Performed By: #### HEMDF, BM P3, CRP2, ESR #### [place] [address] [place], [place] GFR/1.73 sq M predicted among blacks mL/min/{1.73_m2} Normal >60 [facility] MDRD (S/P/Bld) [Vol rate/Area] Comment on above: Performed By: #### HEMDF, BM P3, CRP2, ESR #### [address] [address] [place], [place] GFR/1.73 sq M predicted among mL/min/{1.73_m2} Normal >60 [facility] non-blacks MDRD (S/P/Bld) [Vol rate/Area] Comment on above: Result Comment: Source- MDRD equation with creatinine calibration to IDMS(NKDEP) eGFR not recommended for elton g dose adjustment Performed By: #### HEMDF, BM P3, CRP2, ESR #### [facility] [address] [place] [address] Albumin [Mass/Vol] 3.3 g/dL Low 3.5-5.0 [facility] Comment on above: Performed By: #### HEMDF, BM P3, CRP2, ESR #### [facility] [address] [place] [address] Potassium [Moles/Vol] 4.8 mmol/L Normal 3.5-5.1 [facility] Comment on above: Performed By: #### HEMDF, BM P3, CRP2, ESR #### [place] [address] [place] [address] Sodium [Moles/Vol] 137 mmol/L Normal 135-145 [facility] Comment on above: Performed By: #### HEMDF, BM P3, CRP2, ESR #### [place] [address] [address] [place] [address] Chloride [Moles/Vol] 98 mmol/L Normal 98-107 [facility] Comment on above: Performed By: #### HEMDF, BM P3, CRP2, ESR #### [place] [address] [address] [place] [address] Glucose,Bedside on 03-12-2019 Glucose [Mass/Vol] 187 mg/dL High 70-100 [facility] Comment on above: Result Comment: Test perform ed by glucose meter. Results may be 10%-15% lower than serum/plasma values. (C LIO ID [id number]) Performed By: #### HEMDF, BM P3, CRP2, ESR #### [address] [place] [address] Glucose [Mass/Vol] 167 mg/dL High 70-100 [facility] Comment on above: Result Comment: Test perform ed by glucose meter. Results may be 10%-15% lower than serum/plasma values. (C LIO ID [id number]) Performed By: #### HEMDF, BM P3, CRP2, ESR #### [facility] [email or web address] [place] [address] [place] [address] Glucose [Mass/Vol] 178 mg/dL High 70-100 [facility] Comment on above: Result Comment: Test perform ed by glucose meter. Results may be 10%-15% lower than serum/plasma values. (C LIO ID [id number]) Performed By: #### HEMDF, BM P3, CRP2, ESR #### [facility] [address] [place], [place] Glucose [Mass/Vol] 183 mg/dL High 70-100 [facility] Comment on above: Result Comment: Test perform ed by glucose meter. Results may be 10%-15% lower than serum/plasma values. (C LIO ID [id number]) Performed By: #### HEMDF, BM P3, CRP2, ESR #### [facility] [email or web address] [address] [address] [place], [place] Glucose [Mass/Vol] 145 mg/dL High 70-100 [facility] Comment on above: Result Comment: Test perform ed by glucose meter. Results may be 10%-15% lower than serum/plasma values. (C LIO ID [id number]) Performed By: #### HEMDF, BM P3, CRP2, ESR #### [facility] [email or web address] [place] [address] [place], [place] Hemoglobin A1C on 03-12-2019 HbA1c (Bld) [Mass fraction] 8.2 % High 4.0-5.7 [facility] Comment on above: Result Comment: --HgbA1C lev els may not be accurate in patients who have renal disease, received rece nt blood transfusions, are anemic, or who have dyshemoglobinemi a. Performed By: #### HEMDF, BM P3, CRP2, ESR #### [facility] [address] [place], [place] HbA1c (Bld) [Mass fraction] 189 mg/dL Normal [facility] Comment on above: Performed By: #### HEMDF, BM P3, CRP2, ESR #### [facility] [address] [place], [place] Hemogram w/ Autodiff on 03-12-2019 Abs Baso Cnt 0.1 10*3/uL Normal 0.0-0.2 [facility] Comment on above: Performed By: #### HEMDF, BM P3, CRP2, ESR #### [place] [address] [place], [place] Abs Neutrophile Cnt 12.2 10*3/uL High 1.8-7.0 [facility] Comment on above: Performed By: #### HEMDF, BM P3, CRP2, ESR #### [place] [address] [place], [place] Basophils/100 WBC (Bld) 0.4 % Normal 0.0-2.0 [facility] Comment on above: Performed By: #### HEMDF, BM P3, CRP2, ESR #### [place] [address] [place], [place] Eosinophils (Bld) [#/Vol] 0.0 10*3/uL Normal 0.0-0.5 [facility] Comment on above: Performed By: #### HEMDF, BM P3, CRP2, ESR #### [place] [address] [place], [place] Eosinophils/100 WBC (Bld) 0.0 % Low 1.0-6.0 [facility] Comment on above: Performed By: #### HEMDF, BM P3, CRP2, ESR #### [place] [address] [place], [place] Erythrocyte distribution width (RBC) 16.0 % High 11.5 -14.5 [facility] [Ratio] Comment on above: Performed By: #### HEMDF, BM P3, CRP2, ESR #### [place] [address] [place], [place] Granulocytes/100 WBC (Bld) 87.0 % High 40.0-80.0 [facility] Comment on above: Performed By: #### HEMDF, BM P3, CRP2, ESR #### [place] [place], [place] Hematocrit (Bld) [Volume fraction] 33.1 % Low 40.0-5 2.0 [facility] Comment on above: Performed By: #### HEMDF, BM P3, CRP2, ESR #### [address] [place], [place] Hemoglobin (Bld) [Mass/Vol] 11.1 g/dL Low 13.0-18.0 [facility] Comment on above: Performed By: #### HEMDF, BM P3, CRP2, ESR #### [place] [address] [place], [place] Lymphocytes (Bld) [#/Vol] 0.7 10*3/uL Low 1.0-4.3 [facility] Comment on above: Performed By: #### HEMDF, BM P3, CRP2, ESR #### [address] Lymphocytes/100 WBC (Bld) 4.8 % Low 20.0-40.0 [facility] Comment on above: Performed By: #### HEMDF, BM P3, CRP2, ESR #### [address] MCH (RBC) [Entitic mass] 30.2 pg Normal 26.0-34.0 [facility] Comment on above: Performed By: #### HEMDF, BM P3, CRP2, ESR #### [place] [address] [place], [place] MCHC (RBC) [Mass/Vol] 33.5 % Normal 32.0-36.0 [facility] Comment on above: Performed By: #### HEMDF, BM P3, CRP2, ESR #### [address] MCV (RBC) [Entitic vol] 90.2 fL Normal 80.0-98.0 [facility] Comment on above: Performed By: #### HEMDF, BM P3, CRP2, ESR #### [address] [address] [place], [place] Monocytes (Bld) [#/Vol] 1.1 10*3/uL High 0.0-0.8 [facility] Comment on above: Performed By: #### HEMDF, BM P3, CRP2, ESR #### [place] [address] [place], [place] Monocytes/100 WBC (Bld) 7.8 % Normal 2.0-10.0 [facility] Comment on above: Performed By: #### HEMDF, BM P3, CRP2, ESR #### [place] [address] [place], [place] Platelet mean volume (Bld) [Entitic vol] 7.5 fL Normal 7.4-10.4 [facility] Comment on above: Performed By: #### HEMDF, BM P3, CRP2, ESR #### [address] [place], [place] Platelets (Bld) [#/Vol] 361 10*3/uL Normal 140-440 [facility] Comment on above: Performed By: #### HEMDF, BM P3, CRP2, ESR #### [place] [address] [place], [place] RBC (Bld) [#/Vol] 3.67 10*6/uL Low 4.40-5.90 [facility] Comment on above: Performed By: #### HEMDF, BM P3, CRP2, ESR #### [address] [place], [place] WBC (Bld) [#/Vol] 14.0 10*3/uL High 3.6-10.7 [facility] Comment on above: Performed By: #### HEMDF, BM P3, CRP2, ESR #### [address] [place], [place] Lactic Acid on 03-12-2019 Lactate [Moles/Vol] 0.9 mmol/L Normal 0.7-2.0 [facility] Comment on above: Performed By: #### HEMDF, BM P3, CRP2, ESR #### [place] [address] [place], [place] Lactate [Moles/Vol] 2.3 mmol/L Critically high 0.7-2.0 [facility] Comment on above: Result Comment: Repeated Performed By: #### HEMDF, BM P3, CRP2, ESR #### [place] [address] [place], [place] Procalcitonin on 03-12-2019 Procalcitonin 0.10 ng/mL Abnormal <0.10 [facility] Comment on above: Performed By: #### HEMDF, BM P3, CRP2, ESR #### [place] [place], [place] Thyroid Stim. Hormone on 03-12-2019 Thyroid Stim. Hormone 1.428 u[IU]/mL Normal 0.465-4.680 [facility] Comment on above: Performed By: #### HEMDF, BM P3, CRP2, ESR #### [place] [address] [place], [place] Basic Metabolic Panel on 03-11-2019 Calcium [Mass/Vol] 9.8 mg/dL Normal 8.4-10.4 [facility] Comment on above: Performed By: #### HEMDF, BM P3, CRP2, ESR #### [place] [address] [place], [place] Anion gap [Moles/Vol] 12 Normal [facility] Comment on above: Performed By: #### HEMDF, BM P3, CRP2, ESR #### [place] [address] [place], [place] CO2 [Moles/Vol] 26 mmol/L Normal 22-30 [facility] Comment on above: Performed By: #### HEMDF, BM P3, CRP2, ESR #### [place] [place], [place] Creatinine [Mass/Vol] 0.67 mg/dL Normal 0.52-1.25 [facility] Comment on above: Performed By: #### HEMDF, BM P3, CRP2, ESR #### [place] [address] [place], [place] GFR/1.73 sq M predicted among blacks mL/min/{1.73_m2} Normal >60 [facility] MDRD (S/P/Bld) [Vol rate/Area] Comment on above: Performed By: #### HEMDF, BM P3, CRP2, ESR #### [facility] [address] [place] [address] GFR/1.73 sq M predicted among mL/min/{1.73_m2} Normal >60 [facility] non-blacks MDRD (S/P/Bld) [Vol rate/Area] Comment on above: Result Comment: Source- MDRD equation with creatinine calibration to IDMS(NKDEP) eGFR not recommended for elton g dose adjustment Performed By: #### HEMDF, BM P3, CRP2, ESR #### [facility] [address] [place] [address] Glucose [Mass/Vol] 192 mg/dL High 70-100 [facility] Comment on above: Performed By: #### HEMDF, BM P3, CRP2, ESR #### [facility] [address] [place] [address] Urea nitrogen [Mass/Vol] 20 mg/dL Normal 7-20 [facility] Comment on above: Performed By: #### HEMDF, BM P3, CRP2, ESR #### [address] [address] Chloride [Moles/Vol] 101 mmol/L Normal 98-107 [facility] Comment on above: Performed By: #### HEMDF, BM P3, CRP2, ESR #### [facility] [address] [place] [address] Potassium [Moles/Vol] 4.7 mmol/L Normal 3.5-5.1 [facility] Comment on above: Performed By: #### HEMDF, BM P3, CRP2, ESR #### [facility] [address] [place] [address] Sodium [Moles/Vol] 138 mmol/L Normal 135-145 [facility] Comment on above: Performed By: #### HEMDF, BM P3, CRP2, ESR #### [facility] [address] [facility] [place] [address] Drugs of Abuse on 03-11-2019 Phencyclidine (PCP), Ur Negative Normal [facility] Comment on above: [...] order. Performed By: #### DRGA4 ### # [place] [address] [facility] [place] [address] Methadone, Ur Negative Normal [facility] Comment on above: Performed By: #### DRGA4 ### # [place] [address] [facility] [place] [address] Opiates, Ur Positive Normal [facility] Comment on above: Performed By: #### DRGA4 ### # [place] [address] [facility] [place] [address] Cocaine, Ur Negative Normal [facility] Comment on above: Performed By: #### DRGA4 ### # [facility] [address] [facility] [place] [address] Barbiturates, Ur Negative Normal [facility] Comment on above: Performed By: #### DRGA4 ### # [facility] [address] [facility] [place] [address] Benzodiazepines, Ur Negative Normal [facility] Comment on above: Performed By: #### DRGA4 ### # [place] [address] [facility] [place] [address] Amphetamines, Ur Negative Normal [facility] Comment on above: Performed By: #### DRGA4 ### # [place] [place], [place] Oxycodone/Oxymorphine,Ur Negative Normal [facility] Comment on above: Performed By: #### DRGA4 ### # [facility] [address] [place], [place] Glucose,Bedside on 03-11-2019 Glucose [Mass/Vol] 247 mg/dL High 70-100 [facility] Comment on above: Result Comment: Test perform ed by glucose meter. Results may be 10%-15% lower than serum/plasma values. (C LIO ID [id number]) Performed By: #### HEMDF, BM P3, CRP2, ESR #### [place] [address] [place], [place] Glucose [Mass/Vol] 194 mg/dL High 70-100 [facility] Comment on above: Result Comment: Test perform ed by glucose meter. Results may be 10%-15% lower than serum/plasma values. (C LIO ID [id number]) Performed By: #### HEMDF, BM P3, CRP2, ESR #### [place] [address] [place], [place] Glucose [Mass/Vol] 191 mg/dL High 70-100 [facility] Comment on above: Result Comment: Test perform ed by glucose meter. Results may be 10%-15% lower than serum/plasma values. (C LIO ID [id number]) Performed By: #### HEMDF, BM P3, CRP2, ESR #### [place] [address] [place], [place] Glucose [Mass/Vol] 123 mg/dL High 70-100 [facility] Comment on above: Result Comment: Test perform ed by glucose meter. Results may be 10%-15% lower than serum/plasma values. (C LIO ID [id number]) Performed By: #### HEMDF, BM P3, CRP2, ESR #### [place] [address] [place], [place] Hemogram w/ Autodiff on 03-11-2019 Abs Baso Cnt 0.0 10*3/uL Normal 0.0-0.2 [facility] Comment on above: Performed By: #### HEMDF, BM P3, CRP2, ESR #### [facility] [address] [place], [place] Abs Neutrophile Cnt 10.1 10*3/uL High 1.8-7.0 [facility] Comment on above: Performed By: #### HEMDF, BM P3, CRP2, ESR #### [facility] [address] [place], [place] Basophils/100 WBC (Bld) 0.1 % Normal 0.0-2.0 [facility] Comment on above: Performed By: #### HEMDF, BM P3, CRP2, ESR #### [place] [place], [place] Eosinophils (Bld) [#/Vol] 0.0 10*3/uL Normal 0.0-0.5 [facility] Comment on above: Performed By: #### HEMDF, BM P3, CRP2, ESR #### [place] [place], [place] Eosinophils/100 WBC (Bld) 0.0 % Low 1.0-6.0 [facility] Comment on above: Performed By: #### HEMDF, BM P3, CRP2, ESR #### [place] [place], [place] Erythrocyte distribution width (RBC) 15.4 % High 11.5 -14.5 [facility] [Ratio] Comment on above: Performed By: #### HEMDF, BM P3, CRP2, ESR #### [facility] [address] [place] [address] Granulocytes/100 WBC (Bld) 87.3 % High 40.0-80.0 [facility] Comment on above: Performed By: #### HEMDF, BM P3, CRP2, ESR #### [facility] [address] [place] [address] Hematocrit (Bld) [Volume fraction] 36.4 % Low 40.0-5 2.0 [facility] Comment on above: Performed By: #### HEMDF, BM P3, CRP2, ESR #### [place] [place], [place] Hemoglobin (Bld) [Mass/Vol] 12.1 g/dL Low 13.0-18.0 [facility] Comment on above: Performed By: #### HEMDF, BM P3, CRP2, ESR #### [place] [address] [place], [place] Lymphocytes (Bld) [#/Vol] 0.7 10*3/uL Low 1.0-4.3 [facility] Comment on above: Performed By: #### HEMDF, BM P3, CRP2, ESR #### [address] [place] [place], [place] Lymphocytes/100 WBC (Bld) 5.7 % Low 20.0-40.0 [facility] Comment on above: Performed By: #### HEMDF, BM P3, CRP2, ESR #### [place] [address] [place], [place] MCH (RBC) [Entitic mass] 30.6 pg Normal 26.0-34.0 [facility] Comment on above: Performed By: #### HEMDF, BM P3, CRP2, ESR #### [address] MCHC (RBC) [Mass/Vol] 33.2 % Normal 32.0-36.0 [facility] Comment on above: Performed By: #### HEMDF, BM P3, CRP2, ESR #### [address] [place] MCV (RBC) [Entitic vol] 91.9 fL Normal 80.0-98.0 [facility] Comment on above: Performed By: #### HEMDF, BM P3, CRP2, ESR #### [address] Monocytes (Bld) [#/Vol] 0.8 10*3/uL Normal 0.0-0.8 [facility] Comment on above: Performed By: #### HEMDF, BM P3, CRP2, ESR #### [place] [address] [place], [place] Monocytes/100 WBC (Bld) 6.9 % Normal 2.0-10.0 [facility] Comment on above: Performed By: #### HEMDF, BM P3, CRP2, ESR #### [place] [place], [place] Platelet mean volume (Bld) [Entitic vol] 7.5 fL Normal 7.4-10.4 [facility] Comment on above: Performed By: #### HEMDF, BM P3, CRP2, ESR #### [place] [place], [place] Platelets (Bld) [#/Vol] 372 10*3/uL Normal 140-440 [facility] Comment on above: Performed By: #### HEMDF, BM P3, CRP2, ESR #### [place] [place], [place] RBC (Bld) [#/Vol] 3.96 10*6/uL Low 4.40-5.90 [facility] Comment on above: Performed By: #### HEMDF, BM P3, CRP2, ESR #### [place] [place], [place] WBC (Bld) [#/Vol] 11.6 10*3/uL High 3.6-10.7 [facility] Comment on above: Performed By: #### HEMDF, BM P3, CRP2, ESR #### [address] [place], [place] MRI Spine Lumbar w/ Contrast on 019 MRI Spine Lumbar w/ Patient Name: CASSI FAULKNER V Normal [facility] Contrast MRI Exam Date/Time 03/10/2019 22:44:50 EDT Exam MRI Spine Lumbar w/ Contrast Ordering Physician DONTA VERNON Accession Number [id number] CPT4 Codes 35989 () Reason For Exam r/o epidural abscess [...] w/ + Patient Name: CASSI FAULKNER V [facility] w/o Contrast MRI Exam Date/Time 03/10/2019 22:44:50 EDT Exam MRI Spine Thoracic w/ + w/o Contrast Ordering Physician [id number] JOHNSON Accession Number [id number] CPT4 Codes 54278 () Reason For Exam r/o epidural abscess [...] No discrete abscess. Report Dictated on Workstation: [id number] Dictated: 03/10/2019 10:59 pm Dictating Physician: MD AHRMAN WENDELL Signed Date and Time: 03/10/2019 11:12 pm Signed by: MD HARMAN WENDELL Transcribed Date and Time: 03/10/2019 10:59 Procalcitonin on 03-11-2019 Interpretation See Below [facility] Comment on above: Result Comment: PCT <0.50 = Low risk of severe sepsis and/or septic shock. PCT >2.00 = High risk of sev ere sepsis and/or septic shock. Performed By: #### HEMDF, BM P3, CRP2, ESR #### [facility] [email or web address] [place] [address] [place], [place] Prothrombin Time on 03-11-2019 INR Coag (PPP) [Relative time] 1.0 Normal 0.9-1.1 [facility] Comment on above: Result Comment: Recommended [...] Myocardial Infarction Performed By: #### PT #### [place] [place], [place] PT Coag (PPP) [Time] 10.2 s Normal 9.0-12.0 [facility] Comment on above: Result Comment: . Performed By: #### PT #### [facility] [email or web address] [place] [address] [place], [place] TS GEL on 03-11-2019 TS GEL ABO Group: Normal [facility] [email or web address] Sy stem O Rh, Gel: POS Antibody Screen Gel: NEG Comment on above: Performed By: #### TSGL #### [facility] [email or web address] [place] [address] [place] [address] Basic Metabolic Panel on 03-10-2019 Anion gap [Moles/Vol] 9 Normal [facility] Comment on above: Performed By: #### HEMDF, BM P3, CRP2, ESR #### [facility] [email or web address] [place] [address] [place], [place] Calcium [Mass/Vol] 9.8 mg/dL Normal 8.4-10.4 [facility] Comment on above: Performed By: #### HEMDF, BM P3, CRP2, ESR #### [facility] [email or web address] [place] [address] [place], [place] CO2 [Moles/Vol] 27 mmol/L Normal 22-30 [facility] Comment on above: Performed By: #### HEMDF, BM P3, CRP2, ESR #### [place] [place], [place] Glucose [Mass/Vol] 234 mg/dL High 70-100 [facility] Comment on above: Performed By: #### HEMDF, BM P3, CRP2, ESR #### [place] [address] [place], [place] Urea nitrogen [Mass/Vol] 22 mg/dL High 7-20 [facility] Comment on above: Performed By: #### HEMDF, BM P3, CRP2, ESR #### [place] [place], [place] Creatinine [Mass/Vol] 0.77 mg/dL Normal 0.52-1.25 [facility] Comment on above: Performed By: #### HEMDF, BM P3, CRP2, ESR #### [place] [address] [place], [place] GFR/1.73 sq M predicted among blacks mL/min/{1.73_m2} Normal >60 [facility] MDRD (S/P/Bld) [Vol rate/Area] Comment on above: Performed By: #### HEMDF, BM P3, CRP2, ESR #### [address] [place] [place], [place] GFR/1.73 sq M predicted among mL/min/{1.73_m2} Normal >60 [facility] non-blacks MDRD (S/P/Bld) [Vol rate/Area] Comment on above: Result Comment: Source- MDRD equation with creatinine calibration to IDMS(NKDEP) eGFR not recommended for elton g dose adjustment Performed By: #### HEMDF, BM P3, CRP2, ESR #### [place] [address] [place], [place] Chloride [Moles/Vol] 101 mmol/L Normal 98-107 [facility] Comment on above: Performed By: #### HEMDF, BM P3, CRP2, ESR #### [address] [place] [address] Potassium [Moles/Vol] 5.2 mmol/L High 3.5-5.1 [facility] Comment on above: Performed By: #### HEMDF, BM P3, CRP2, ESR #### [facility] [address] [place] [address] Sodium [Moles/Vol] 137 mmol/L Normal 135-145 [facility] Comment on above: Performed By: #### HEMDF, BM P3, CRP2, ESR #### [facility] [address] [place] [address] C-Reactive Protein on 03-10-2019 CRP [Mass/Vol] 67.9 mg/L High 0.0-6.0 [facility] Comment on above: Result Comment: . Performed By: #### HEMDF, BM P3, CRP2, ESR #### [facility] [address] [place], [place] CR Chest 1 View Frontal on 03-10-2019 CR Chest 1 View Frontal Patient Name: CASSI FAULKNER V Normal [facility] Diagnostic Radiology Exam Date/Time 03/10/2019 21:25:47 EDT Exam CR Chest 1 View Frontal Ordering Physician [id number] JOHNSON Accession Number [id number] CPT4 Codes 84417 () Reason For Exam preop Report CLINICAL [...] Abs Baso Cnt 0.0 10*3/uL Normal 0.0-0.2 [facility] Comment on above: Performed By: #### HEMDF, BM P3, CRP2, ESR #### [facility] [address] [place], [place] Abs Neutrophile Cnt 8.6 10*3/uL High 1.8-7.0 [facility] Comment on above: Performed By: #### HEMDF, BM P3, CRP2, ESR #### [facility] [address] [place], [place] Basophils/100 WBC (Bld) 0.4 % Normal 0.0-2.0 [facility] Comment on above: Performed By: #### HEMDF, BM P3, CRP2, ESR #### [place] [place], [place] Eosinophils (Bld) [#/Vol] 0.0 10*3/uL Normal 0.0-0.5 [facility] Comment on above: Performed By: #### HEMDF, BM P3, CRP2, ESR #### [facility] [address] [place], [place] Eosinophils/100 WBC (Bld) 0.2 % Low 1.0-6.0 [facility] Comment on above: Performed By: #### HEMDF, BM P3, CRP2, ESR #### [facility] [address] [place], [place] Erythrocyte distribution width (RBC) 15.5 % High 11.5 -14.5 [facility] [Ratio] Comment on above: Performed By: #### HEMDF, BM P3, CRP2, ESR #### [facility] [address] [place], [place] Granulocytes/100 WBC (Bld) 93.3 % High 40.0-80.0 [facility] Comment on above: Performed By: #### HEMDF, BM P3, CRP2, ESR #### [facility] [address] [place], [place] Hematocrit (Bld) [Volume fraction] 35.9 % Low 40.0-5 2.0 [facility] Comment on above: Performed By: #### HEMDF, BM P3, CRP2, ESR #### [address] [place], [place] Hemoglobin (Bld) [Mass/Vol] 12.3 g/dL Low 13.0-18.0 [facility] Comment on above: Performed By: #### HEMDF, BM P3, CRP2, ESR #### [address] [address] [place], [place] Lymphocytes (Bld) [#/Vol] 0.5 10*3/uL Low 1.0-4.3 [facility] Comment on above: Performed By: #### HEMDF, BM P3, CRP2, ESR #### [address] [address] [place], [place] Lymphocytes/100 WBC (Bld) 5.0 % Low 20.0-40.0 [facility] Comment on above: Performed By: #### HEMDF, BM P3, CRP2, ESR #### [address] [place] MCH (RBC) [Entitic mass] 31.2 pg Normal 26.0-34.0 [facility] Comment on above: Performed By: #### HEMDF, BM P3, CRP2, ESR #### [address] MCHC (RBC) [Mass/Vol] 34.3 % Normal 32.0-36.0 [facility] Comment on above: Performed By: #### HEMDF, BM P3, CRP2, ESR #### [address] [address] [place], [place] MCV (RBC) [Entitic vol] 91.0 fL Normal 80.0-98.0 [facility] Comment on above: Performed By: #### HEMDF, BM P3, CRP2, ESR #### [address] [address] [place], [place] Monocytes (Bld) [#/Vol] 0.1 10*3/uL Normal 0.0-0.8 [facility] Comment on above: Performed By: #### HEMDF, BM P3, CRP2, ESR #### [address] [address] [place], [place] Monocytes/100 WBC (Bld) 1.1 % Low 2.0-10.0 [facility] Comment on above: Performed By: #### HEMDF, BM P3, CRP2, ESR #### [address] [address] [place], [place] Platelet mean volume (Bld) [Entitic vol] 7.6 fL Normal 7.4-10.4 [facility] Comment on above: Performed By: #### HEMDF, BM P3, CRP2, ESR #### [address] [address] [place], [place] Platelets (Bld) [#/Vol] 395 10*3/uL Normal 140-440 [facility] Comment on above: Performed By: #### HEMDF, BM P3, CRP2, ESR #### [place] [address] [place], [place] RBC (Bld) [#/Vol] 3.94 10*6/uL Low 4.40-5.90 [facility] Comment on above: Performed By: #### HEMDF, BM P3, CRP2, ESR #### [place] [address] [place], [place] WBC (Bld) [#/Vol] 9.2 10*3/uL Normal 3.6-10.7 [facility] Comment on above: Performed By: #### HEMDF, BM P3, CRP2, ESR #### [place] 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 Moderate right and gifu-tq-nhnddysv left-side d foraminal narrowing is noted. Impression: [...] the he was dir ected to the [facility] emergency department. I also discussed this case with the emergency room charge nurse at approximately 3:30 PM o n 03/10/2019.. Report Dictated on Final Dictated: 03/10/2019 3:29 pm Dictating Physician: MD OROPEZA KRIKOR Signed Date and Time: 03/10/2019 3:40 pm Signed by: MD OROPEZA KRIKOR Transcribed Date and Time: 03/10/2019 3:29 Sed Rate on 03-10-2019 Sed Rate 123 mm/h High 0-10 [facility] [email or web address] [facility] Comment on above: Performed By: #### HEMDF, BM P3, CRP2, ESR #### [facility] [email or web address] [facility] [address] [place] [id number] Vital Signs Date Time Vital Sign Value Performing Clinician Facilit y 11-26-2021 Body temperature 98.6 [degF] JONN STOUT MD [facility] 18:49-0400 Wo rk 11-26-2021 Diastolic blood 86 mm[Hg] JONN STOUT MD [facility] 18:49-0400 pressure Wo rk 11-26-2021 Heart rate 83 /min JONN STOUT MD [facility] 18:[facility] Wo rk 11-26-2021 Respiratory rate 20 /min JONN STOUT MD [facility] 18:49-0400 Wo rk 11-26-2021 Systolic blood 159 mm[Hg] JONN Cabrera ospital [facility] 18:49-0400 pressure Wo rk Encounters Encounter Date Encounter Type Care Provider Facility Start: 11-26-2021 Emergency department JONN STOUT MD [facility] End: 11-26-2021 patient visit Work P nicolas: Start: 02-12-2020 [facility] [address] [facility] End: [...] #### HEMDF, BM P3, CRP2, ESR #### [facility] [address], [place] Start: 03-13-2019 Microscopic examination of blood, culture Comment on above: Order Comment: Specimen Sour ce Comment:Blood Performed By: #### HEMDF, BM P3, CRP2, ESR #### [place] [address] [place], [place] Plan of Treatment Date Care Activity Detail Author Start: Influenza vaccination Flu vaccine (Season Ended) [facility]- 04-16-2020 [place] Start: Creatinine measurement Creatinine monitoring [facility] 03-13-2020 [place] Start: Potassium monitoring Potassium monitoring [facility] 03-13-2020 [place] Start: HbA1c (Bld) [Mass fraction] A1C test (Diabetic o r [facility]03-12-2020 Prediabetic) [place] Start: TSH Qn TSH testing [facility] 03-12-2020 [place] Start: Lipid panel Lipid screen [facility] 02-02-2020 [place] Start: Screening for malignant Colon Cancer Screen [facility]12-25-2017 neoplasm of colon FIT/FOBT [place] Start: Shingles Vaccine (1 of 2) Shingles Vaccine (1 of 2) [facility]2010 [place] Start: DTaP/Tdap/Td vaccine (1 - DTaP/Tdap/Td vaccine ( 1 - [facility]1979 Tdap) Tdap) [place] Start: Hepatitis B vaccine (1 of 3 Hepatitis B vaccine (1 of 3 [facility] 1979 - Risk 3-dose series) - Risk 3-dose series) [place] Start: Diabetic microalbuminuria Diabetic microalbuminu joseph [facility] 1978 test test [place] Start: HIV screening HIV screen [facility] [address] [place] Start: Diabetic foot examination Diabetic foot exam [facility] 1970 [place] Start: Diabetic retinal exam Diabetic retinal exam [facility] [address] [place] Start: Hepatitis C screening Hepatitis C screen [facility] [place] Payers Date Payer Category Payer Unknown [employer] xx xxxxxxxxxx [address] xxxxxxxxxxxx [id number] 2018-Present [phone] [id number] [address] [place] [address] Social History Date Type Detail Facility Start: 03-15-2019 Tobacco smoking status Never smoker [place], [place] [facility]IS Start: 03-15-2019 Alcohol intake Current non-drinker of [place], [place] alcohol (finding) Sex Assigned At Not on file [place], [place] Goals Date Patient Goal Desired Activity/Sta [...] other sugar drinks. Patient given after visit [facility] which includes educational information on Nutrition. Discussed use, benefit, and side effects of prescribed medications and barriers to medication compliance addressed, if applicable. All patient questions answered and patient voiced understanding. Dg keane was given a copy of this, and was advised to call if any questions. Functional Status Date Assessment Result Facility 11-26-2021 Functional Status [facility] Work Phone: 11-26-2021 Functional Status [facility] Work Phone: Mental Status Date Assessment Result Facility 11-26-2021 Mental Status [facility] Work Phone: 11-26-2021 Mental Status [facility] Work Phone: Hospital Discharge instructions 11-26-2021 Note Date & Type Note Facility 11-26-2021 Hospital Discharge Patient Education 11/26/2021 20:11:20 Ankle Sprain (Adult) Ankle Sprain (Adult) [facility] instructions Work Phone: An ankle sprain is [...] thin towel or cloth. You may use phuh-ltm-fzcjbr r pain medicine (NSAIDS or nonsteroidal anti- [...] or is irritated You re-injure your ankle [id number] [employer] [address] [place] [address]. All rights reserved. This information is not intended as a substitute for professional medical care. Always follow your healthcare professional's instructions. Follow Up Care 11/26/2021 18:47:48 With:DILLON MARROQUIN MD Address: [facility]/[place] [address] [place] [address]- When:2-4 days Comments:Make an appointment in 2 to 4 days with your physician. Return if you are worse in any way. Evaluation + Plan note Note Date & Type Note Facility Evaluation + Plan note No data available for this [facility] section Work Phone: Progress note Note Date & Type Note Facility Progress note No data available for this section [facility] Work Phone: Advance Directives No Advanced Directives Records Found Documents on File Type Date Recorded Patient Service Engineer Explanati on Advance Directives and Living Will Power of Compliance Field Technician Latest Code Status on File Code Status [...] DATE CREATED AUTHOR AUTHOR'S ORGANIZ ATION 03/05/2020 [facility] DATE CREATED AUTHOR AUTHOR'S ORGANIZATIO N 12/14/2021 [facility] Found ation ([place]) DATE CREATED AUTHOR AUTHOR'S ORGANIZATIO N 07/23/2022 [facility] Care Team (unrecognized section and cont ent) Personnel Name: DILLON MARROQUIN MD Address: ADULT GERIATRICS/[address] [place] [address]- FOR RECORDS PERTAINING TO PATIENTS WHO ARE [...] BE BASED ON THE PRIMARY CLINICAL RECORDS. [facility] provides no warranty or guarantee of the accuracy or completeness of information in this document.
--- NOTE | 2022-08-20 05:50 | EDS_ITS ---
HPI History of Present Illness Chief Complaint: General Illness Narrative Narrative: Patient is a 61-year-old male who presents from home with complaint of fever and weakness and depressed mental status. Patient has a past medical history of hypertension hyperlipidemia and type 2 diabetes. Reportedly he stopped taking all of his medication because he just did not want to do that anymore. According to patient and family he has been having bouts of loose stool and been having fevers off and on for the past 3 to 5 days. This morning the person whom he lives with heard him calling out from downstairs. She states when she came down to check on him he was lying face first into his recliner and too weak to stand and move so she called EMS. Patient denies any chest pain but he does report cough fatigue and shortness of breath. He does have a fever according EMS and with his constellation of symptoms and now worsening weakness he was brought in for evaluation. Patient states he does not have need for supplemental oxygen on a normal basis [facility] Medical History Chronic pain HTN (hypertension) Hyperlipidemia Hypothyroid RO (obstructive sleep apnea) Home Medications NK 08/20/22 [History Last Taken Unknown] Allergy/AdvReac Type Severity Reaction Status Date / Time No Known Allergies Allergy Verified 06/09/21 15:04 Family History Other CAD (coronary artery disease) Surgical History (Updated 08/20/22 @ 04:24 by Zari Varghese) H/O Spinal surgery Social History adopted: No household members: spouse housing: house Smoking Status: Never smoker ROS ROS ED Constitutional Constitutional ED: Reports chills and fever(s) Eyes Eyes: Denies change in vision ENT ENT ED: Denies sore throat Cardiovascular Cardiovascular: Denies chest pain Respiratory/Chest Respiratory/Chest: Reports cough and dyspnea Gastrointestinal Gastrointestinal: Reports diarrhea and nausea; Denies abdominal pain or vomiting Genitourinary Genitourinary ED: Denies dysuria Musculoskeletal Musculoskeletal: Reports myalgias Integumentary Denies rash Neurologic Neurologic: Reports weakness; Denies headache(s) Hematologic/Lymphatic Hematologic/Lymphatic: Denies easy bleeding or easy bruising EXAM Physical Exam Const Vital Signs: 08/20/22 04:19 08/20/22 04:29 08/20/22 05:07 Temperature 102.7 F H 103.1 F H Temperature Source Oral Oral Pulse Rate 105 H 103 H Respiratory Rate 23 H 18 Respiratory Effort Normal Non-Labored Respiratory Pattern Tachypnea Blood Pressure 154/102 H 173/101 H Blood Pressure Mean 119 125 Pulse Ox 89 93 Oxygen Delivery Method Room Air Nasal Cannula 08/20/22 04:50 08/20/22 05:50 08/20/22 06:00 Temperature 101 F H 101 F H Temperature Source Oral Oral Pulse Rate 102 H 92 93 Respiratory Rate 17 21 H 26 H Respiratory Effort Respiratory Pattern Blood Pressure 152/89 H 135/77 H 146/94 H Blood Pressure Mean 110 96 111 Pulse Ox 91 96 95 Oxygen Delivery Method Room Air Room Air Room Air Positive well nourished, well developed and obese General Appearance ED: well developed Nutritional Appearance: obese HEENT Reports dry mucous membranes HEENT Narrative: Cobblestoning noted in the posterior pharynx consistent with sinus drainage but no airway edema or compromise Mouth ED: Yes dry mucous membranes Mouth: dry mucous membranes Eyes PERRL and EOMs intact bilaterally Neck supple and no JVD Neck Narrative: No nuchal rigidity or meningeal signs noted Chest Wall palpation of chest normal Resp Resp Narrative: Breath sounds are diminished throughout with faint rhonchi in the bilateral bases. Patient has tachypnea and mild accessory muscle use but no nasal flaring or retractions Cardio regular rhythm Rate: tachycardic and other Other Details: Radial pulses are plus 2 out of 4 bilaterally are equal and symmetric GI non-tender, non-distended and no masses GI Narrative: Abdomen is obese soft nontender and nondistended with hyperactive bowel sounds no voluntary guarding or rigidity no pulsatile mass Auscultation: hyperactive bowel sounds Palpation: soft Extremity normal to inspection Extremity Narrative: No asymmetric edema no pitting edema negative Homans' sign bilaterally Neuro oriented x3 and CN's II-XII intact bilaterally Neuro Narrative: Patient is lethargic with GCS of 14 but awakes to voice and answers questions appropriately. Once awake he is slow to respond but there are no focal neurologic deficits noted Patient has generalized weakness and cannot stand under his own power but when stimulated with pain can move all extremities equally with a strength of plus 4 out of 5 Sensorium / Orientation: lethargic Psych Psych Narrative: Patient has a flat/depressed affect Skin no rashes or lesions noted Skin Narrative: Skin turgor is increased MDM MDM MDM Narrative Medical decision making narrative: Patient presented to the ER febrile and had a pulse ox down to 85% on room air. Secondary to this a blood gas was obtained which confirmed hypoxia with a PO2 in the 40s and his pH was just slightly alkalotic at 7.47. With his untreated diabetes and blood sugar 364 the alkalosis goes against DKA also his anion gap is normal and his serum bicarb is not diminished. He also does not qualify for HHS as his calculated serum osmolality is only approximately 275. His constellation of symptoms is most consistent with a viral infection such as COVID or influenza so the swabs were obtained. Viral swabs are negative and chest x-ray shows groundglass opacities most consistent with a viral or atypical pneumonia. As the patient does not have a white count or lactic acidosis I feel this is most likely viral in nature but as the COVID and influenza swabs are negative he will be started on Rocephin and Zithromax as he has not been in the hospital in the past 3 months. At this time he is requiring supplemental oxygen to keep his sats over 90% and as he does not have oxygen at home he cannot be discharged at this time. Therefore he will be kept in the hospital for further care. The case was discussed with the patient his family and the hospitalist and they are agreeable to the plan of care and therefore he will be admitted at this time Lab Data Attestation: I reviewed the patient's lab results. Labs: Laboratory Results - last 24 hr 08/20/22 08/20/22 08/20/22 04:30 04:39 04:45 WBC 5.4 RBC 4.81 Hgb 15.1 Hct 44.1 MCV 91.7 MCH 31.4 MCHC 34.2 RDW Std Deviation 39.7 RDW Coeff of Kina 11.7 Plt Count 180 MPV 11.3 Immature Gran % (Auto) 0.700 Neut % (Auto) 83.1 H Lymph % (Auto) 9.1 L Bull[place] % (Auto) 6.9 Eos % (Auto) 0.0 Baso % (Auto) 0.2 Absolute Neuts (auto) 4.5 Absolute Lymphs (auto) 0.49 L Nucleated RBC % 0 Differential Comment SCANNED Sodium Potassium Chloride Carbon Dioxide Anion Gap BUN Creatinine Estim Creat Clear Calc Est GFR (MDRD) Af Amer Est GFR (MDRD) Non-Af BUN/Creatinine Ratio Glucose Lactic Acid 1.5 Calcium Magnesium Total Bilirubin Direct Bilirubin AST ALT Alkaline Phosphatase Ammonia Total Protein Albumin Globulin Procalcitonin Urine Color Urine Clarity Urine pH Ur Specific [place] Urine Protein Urine Glucose (UA) Urine Ketones Urine Occult Blood Urine Nitrite Urine Bilirubin Urine Urobilinogen Ur Leukocyte Esterase Urine RBC Urine WBC Ur Squamous Epith Cells Urine Bacteria Urine Mucus POC Glucose 391 H 08/20/22 08/20/22 08/20/22 04:45 04:50 05:21 WBC RBC Hgb Hct MCV MCH MCHC RDW Std Deviation RDW Coeff of Kina Plt Count MPV Immature Gran % (Auto) Neut % (Auto) Lymph % (Auto) [place] % (Auto) Eos % (Auto) Baso % (Auto) Absolute Neuts (auto) Absolute Lymphs (auto) Nucleated RBC % Differential Comment Sodium 123 L Potassium 4.2 Chloride 88 L Carbon Dioxide 28.0 Anion Gap 7 BUN 13 Creatinine 1.03 Estim Creat Clear Calc 75.31 Est GFR (MDRD) Af Amer 94 Est GFR (MDRD) Non-Af 78 BUN/Creatinine Ratio 12.6 Glucose 364 H Lactic Acid Calcium 8.5 Magnesium 1.8 Total Bilirubin 0.50 Direct Bilirubin 0.16 AST 48 H ALT 47 Alkaline Phosphatase 91 Ammonia 37.0 H Total Protein 7.1 Albumin 2.5 L Globulin 4.6 H Procalcitonin Urine Color Yellow Urine Clarity Clear Urine pH 6.0 Ur Specific [place] 1.010 Urine Protein 500 H Urine Glucose (UA) 1000 H Urine Ketones 50 H Urine Occult Blood 250 H Urine Nitrite Negative Urine Bilirubin Negative Urine Urobilinogen Normal Ur Leukocyte Esterase Negative Urine RBC 0-5 SEEN Urine WBC 0 SEEN Ur Squamous Epith Cells 0-5 SEEN Urine Bacteria RARE Urine Mucus 0 SEEN POC Glucose 08/20/22 06:13 WBC RBC Hgb Hct MCV MCH MCHC RDW Std Deviation RDW Coeff of Kina Plt Count MPV Immature Gran % (Auto) Neut % (Auto) Lymph % (Auto) [place] % (Auto) Eos % (Auto) Baso % (Auto) Absolute Neuts (auto) Absolute Lymphs (auto) Nucleated RBC % Differential Comment Sodium Potassium Chloride Carbon Dioxide Anion Gap BUN Creatinine Estim Creat Clear Calc Est GFR (MDRD) Af Amer Est GFR (MDRD) Non-Af BUN/Creatinine Ratio Glucose Lactic Acid Calcium Magnesium Total Bilirubin Direct Bilirubin AST ALT Alkaline Phosphatase Ammonia Total Protein Albumin Globulin Procalcitonin 0.31 H Urine Color Urine Clarity Urine pH Ur Specific [place] Urine Protein Urine Glucose (UA) Urine Ketones Urine Occult Blood Urine Nitrite Urine Bilirubin Urine Urobilinogen Ur Leukocyte Esterase Urine RBC Urine WBC Ur Squamous Epith Cells Urine Bacteria Urine Mucus POC Glucose ABG Data ABG results: ABG 08/20/22 04:56 Specimen Type ART Sample Site L Radial pH 7.47 H Bicarbonate Actual 23.9 Total CO2 25 Base Excess 0 O2 Saturation 89 L ABG pCO2 32.8 L ABG pO2 52 L Jose Luis Test Positive O2 Delivery Device Room Air Radiography Diagnostic Testing: Clinical Impression(s) from Imaging Studies Chest X-Ray 08/20/22 04:43 IMPRESSION: The lungs Ill-defined subpleural groundglass opacities are seen more prominent in the lung bases , may represent atypical pneumonia or viral pneumonia (COVID-19 ?). are clear and expanded. Electronically Signed: Yoana Benz MD at 5:35 EST , 1 view chest x-ray as interpreted by the emergency medicine physician reveals groundglass opacities in the bilateral lung bases concerning for atypical versus viral pneumonia Discharge Plan Dx/Rx/DC Orders Clinical Impression: Atypical pneumonia, Diabetes mellitus, type II, Acute respiratory failure with hypoxia, Generalized weakness, Pyrexia Disposition Disposition: Acute Care Hospital [facility]
[2022-08-20] MEDS: Ibuprofen 600 MG Tablet PO (06:42)
[2022-08-20] MEDS: Ceftriaxone 1 GM/50 ML BAG IV (06:42)
[2022-08-20 07:17] LABS: Procalcitonin 0.31 ng/mL (0.00-0.09)
--- OUTSIDE RECORDS SUMMARY | 2022-08-20 09:19 | XMS RPT_ITS | CCD ---
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 Left VM Normal [facility] requesting callback to office. 36 Called patient back to advis e ED. No answer. LVM requesting patient to call back Normal [facility] office. 36 S: Patient spoke with [facility] nurse helga laguna Pt states legs have been very weak Normal [facility] B: Onset couple months A: Pt [...] speaking in full sentences. 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 Speech clear. Pt was seeing in [place]. [...] with complaint of Pt states legs Normal [facility] have been very weak B: Onset [...] XR ANKLE AND FOOT 6 ORIGINAL Normal [facility] VIEWS RIGHT EXAMINATION: ([place]) 6 x-ray [...] w/o Patient Name: CASSI FAULKNER V Normal [facility] Contrast Right MRI Exam Date/Time 02/12/2020 07:26:00 EDT Exam MRI Up Ext Joint w/o Contrast Right Ordering Physician GUICHO GOODMAN MICHELLE Accession Number [id number] CPT4 Codes 80107 () Reason For Exam Impingement syndrome of [...] 02-12-2020 Patient Name: CASSI FAULKNER V FIN: [place], [place] [id number] ---MRI--- Exam Date/Time 02/12/2020 07:26 :00 EDT Exam MRI Up Ext Joint w/o Contrast Right Ordering Physician GUICHO GOODMAN MICHELLE Accession Number [id number] CPT4 Codes 18700 () Reason For Exam Impingement syndrome of [...] 8:02 Brandin, [facility] Incoming Radiology Results From [facility] - 8:34 AM EDT [place], [place] Patient Name: CASSI FAULKNER V ---MRI--- Exam Date/Time 02/12/2020 07:26:00 EDT Exam MRI Up Ext Joint w/o Contrast Right Ordering Physician GUICHO GOODMAN MICHELLE Accession Number [id number] CPT4 Codes 28914 () Reason For Exam Impingement syndrome of [...] Glucose [Mass/Vol] 124 mg/dL High 70-100 [facility] Comment on above: Result Comment: Test perform ed by glucose meter. Results may be 10%-15% lower than serum/plasma values. (C LIO ID [id number]) Performed By: #### BGLU #### [facility] [address] [address] Glucose [Mass/Vol] 150 mg/dL High 70-100 [facility] Comment on above: Result Comment: Test perform ed by glucose meter. Results may be 10%-15% lower than serum/plasma values. (C LIO ID [id number]) Performed By: #### BGLU #### [facility] [address] [address] CR Chest Portable on 03-16-2019 CR Chest Portable Patient Name: CASSI FAULKNER [facility] Diagnostic Radiology Exam Date/Time 03/16/2019 16:45:39 EDT Exam CR Chest Portable Ordering Physician DO LOPEZ KATHRYN C Accession Number [id number] CPT4 Codes 39555 () Reason For Exam line placement Report [...] ANAEROBE CULTURE ANAEROBE --> Status: F Normal [facility] No growth of anaerobes at 5 days. Comment on above: Order Comment: Specimen stacy ected in O.R.; received on swab. Performed By: #### HEMDF, BM P3, CRP2, ESR #### [facility] [address] [place] [address] Glucose,Bedside on 03-16-2019 Glucose [Mass/Vol] 131 mg/dL High 70-100 [facility] Comment on above: Result Comment: Test perform ed by glucose meter. Results may be 10%-15% lower than serum/plasma values. (C LIO ID [id number]) Performed By: #### BGLU #### [facility] [id number] [place] [address] Glucose [Mass/Vol] 145 mg/dL High 70-100 [facility] Comment on above: Result Comment: Test perform ed by glucose meter. Results may be 10%-15% lower than serum/plasma values. (C LIO ID [id number]) Performed By: #### BGLU #### [facility] [id number] [place] [address] Glucose [Mass/Vol] 161 mg/dL High 70-100 [facility] Comment on above: Result Comment: Test perform ed by glucose meter. Results may be 10%-15% lower than serum/plasma values. (C LIO ID [id number]) Performed By: #### BGLU #### [employer] [place] [address] Glucose [Mass/Vol] 173 mg/dL High 70-100 [facility] Comment on above: Result Comment: Test perform ed by glucose meter. Results may be 10%-15% lower than serum/plasma values. (C LIO ID [id number]) Performed By: #### BGLU #### [employer] [id number] [place] [address] Echo 2D/3D TORRES w/wo Contrast on 019 Echo Patient Name: CASSI FAULKNER V Normal [facility] 2D/3D TORRES [facility] w/wo System Contrast Ultrasound Exam Date/Time 03/15/2019 09:28:23 EDT Exam Echo 2D/3D TORRES w/wo Contrast Ordering Physician MD FATEMEH, TITO Accession Number [id number] Reason For Exam endocarditis, bacteremia Addendum TRANSESOPHAGEAL ECHOCARDIOGRAM (AMENDED REPORT ) PATIENT: Cassi Faulkner V STUDY DATE: 03/15/2019 : 1960 AGE: 58 HT/WT: 175.3 cm (69 161.4 kg (355 in) lb) GENDER: M BP: 144 / 82 LOCATION: [facility] PATIENT Inpatient [facility] STATUS: *ORDERING PHYSICIAN: * Tito Wang *RN: * Frieda Vargas *READING PHYSICIAN: * Janeen Hernadez *SWITCHBOARD OPERATOR HELPER: * Sabina Land, CCT --- INDICATIONS: Endocarditis, [...] Doppler images were acquired and archived for [facility] [employer] and are available for subsequent review. Study [...] GENDER: M BP: 144 / 82 LOCATION: [facility] PATIENT Inpatient [facility] STATUS: *ORDERING PHYSICIAN: * Tito Wang *RN: * Frieda Vargas *READING PHYSICIAN: * Janeen Hernadez *SWITCHBOARD OPERATOR HELPER: * Sabina Land [facility] --- INDICATIONS: Endocarditis, Bacteremia. --- CONCLUSIONS [...] 03-15-2019 Glucose [Mass/Vol] 136 mg/dL High 70-100 [employer] [facility] Comment on above: Result Comment: Test perform ed by glucose meter. Results may be 10%-15% lower than serum/plasma values. (C LIO ID [id number]) Performed By: #### BGLU #### [employer] [address] [place] [address] Glucose [Mass/Vol] 134 mg/dL High 70-100 [facility] Comment on above: Result Comment: Test perform ed by glucose meter. Results may be 10%-15% lower than serum/plasma values. (C LIO ID [id number]) Performed By: #### HEMDF, BM P3, CRP2, ESR #### [employer] [facility] [address] [place] [address] Glucose [Mass/Vol] 150 mg/dL High 70-100 [facility] Comment on above: Result Comment: Test perform ed by glucose meter. Results may be 10%-15% lower than serum/plasma values. (C LIO ID [id number]) Performed By: #### HEMDF, BM P3, CRP2, ESR #### [employer] [facility] [address] [place] [address] CULT./ST. BACTERIA on 03-14-2019 CULT./ST. STAIN GRAM [...] #### HEMDF, BM P3, CRP2, ESR #### [employer] [facility] [address] [place] [address] Glucose,Bedside on 03-14-2019 Glucose [Mass/Vol] 174 mg/dL High 70-100 [facility] Comment on above: Result Comment: Test perform ed by glucose meter. Results may be 10%-15% lower than serum/plasma values. (C LIO ID [id number]) Performed By: #### HEMDF, BM P3, CRP2, ESR #### [employer] [facility] [address] [place] [address] Glucose [Mass/Vol] 163 mg/dL High 70-100 [facility] Comment on above: Result Comment: Test perform ed by glucose meter. Results may be 10%-15% lower than serum/plasma values. (C LIO ID [id number]) Performed By: #### HEMDF, BM P3, CRP2, ESR #### [employer] [facility] [address] [place] [address] Glucose [Mass/Vol] 154 mg/dL High 70-100 [facility] Comment on above: Result Comment: Test perform ed by glucose meter. Results may be 10%-15% lower than serum/plasma values. (C LIO ID [id number]) Performed By: #### HEMDF, BM P3, CRP2, ESR #### [employer] [facility] [address] [place] [address] Glucose [Mass/Vol] 161 mg/dL High 70-100 [facility] Comment on above: Result Comment: Test perform ed by glucose meter. Results may be 10%-15% lower than serum/plasma values. (C LIO ID [id number]) Performed By: #### HEMDF, BM P3, CRP2, ESR #### [employer] [facility] [address] [place] [address] Hemogram w/ Autodiff on 03-14-2019 Abs Baso Cnt 0.0 10*3/uL Normal 0.0-0.2 [facility] Comment on above: Performed By: #### HEMDF, BM P3, CRP2, ESR #### [facility] [address] [place], [place] Abs Neutrophile Cnt 7.7 10*3/uL High 1.8-7.0 [facility] Comment on above: Performed By: #### HEMDF, BM P3, CRP2, ESR #### [facility] [address] [place], [place] Basophils/100 WBC (Bld) 0.2 % Normal 0.0-2.0 [facility] Comment on above: Performed By: #### HEMDF, BM P3, CRP2, ESR #### [place] [address] [place], [place] Eosinophils (Bld) [#/Vol] 0.1 10*3/uL Normal 0.0-0.5 [facility] Comment on above: Performed By: #### HEMDF, BM P3, CRP2, ESR #### [facility] [address] [place], [place] Eosinophils/100 WBC (Bld) 0.8 % Low 1.0-6.0 [facility] Comment on above: Performed By: #### HEMDF, BM P3, CRP2, ESR #### [place] [address] [place], [place] Erythrocyte distribution width (RBC) 15.6 % High 11.5 -14.5 [facility] [Ratio] Comment on above: Performed By: #### HEMDF, BM P3, CRP2, ESR #### [facility] [address] [place], [place] Granulocytes/100 WBC (Bld) 77.6 % Normal 40.0-80.0 [facility] Comment on above: Performed By: #### HEMDF, BM P3, CRP2, ESR #### [facility] [address] [place], [place] Hematocrit (Bld) [Volume fraction] 32.8 % Low 40.0-5 2.0 [facility] Comment on above: Performed By: #### HEMDF, BM P3, CRP2, ESR #### [place] [address] [place], [place] Hemoglobin (Bld) [Mass/Vol] 11.3 g/dL Low 13.0-18.0 [facility] Comment on above: Performed By: #### HEMDF, BM P3, CRP2, ESR #### [place] [address] [place], [place] Lymphocytes (Bld) [#/Vol] 1.0 10*3/uL Normal 1.0-4.3 [facility] Comment on above: Performed By: #### HEMDF, BM P3, CRP2, ESR #### [place] [address] [place], [place] Lymphocytes/100 WBC (Bld) 9.9 % Low 20.0-40.0 [facility] Comment on above: Performed By: #### HEMDF, BM P3, CRP2, ESR #### [place] [address] [place], [place] MCH (RBC) [Entitic mass] 31.4 pg Normal 26.0-34.0 [facility] Comment on above: Performed By: #### HEMDF, BM P3, CRP2, ESR #### [address] [place], [place] MCHC (RBC) [Mass/Vol] 34.4 % Normal 32.0-36.0 [facility] Comment on above: Performed By: #### HEMDF, BM P3, CRP2, ESR #### [place] [address] [place], [place] MCV (RBC) [Entitic vol] 91.3 fL Normal 80.0-98.0 [facility] Comment on above: Performed By: #### HEMDF, BM P3, CRP2, ESR #### [place] [address] [place], [place] Monocytes (Bld) [#/Vol] 1.1 10*3/uL High 0.0-0.8 [facility] Comment on above: Performed By: #### HEMDF, BM P3, CRP2, ESR #### [place] [address] [place], [place] Monocytes/100 WBC (Bld) 11.5 % High 2.0-10.0 [facility] Comment on above: Performed By: #### HEMDF, BM P3, CRP2, ESR #### [place] [address] [place], [place] Platelet mean volume (Bld) [Entitic vol] 7.4 fL Normal 7.4-10.4 [facility] Comment on above: Performed By: #### HEMDF, BM P3, CRP2, ESR #### [place] [address] [place], [place] Platelets (Bld) [#/Vol] 247 10*3/uL Normal 140-440 [facility] Comment on above: Performed By: #### HEMDF, BM P3, CRP2, ESR #### [place] [place], [place] RBC (Bld) [#/Vol] 3.59 10*6/uL Low 4.40-5.90 [facility] Comment on above: Performed By: #### HEMDF, BM P3, CRP2, ESR #### [place] [address] [place], [place] WBC (Bld) [#/Vol] 10.0 10*3/uL Normal 3.6-10.7 [facility] Comment on above: Performed By: #### HEMDF, BM P3, CRP2, ESR #### [address] [place], [place] Basic Metabolic Panel on 03-13-2019 Anion gap [Moles/Vol] 10 Normal [facility] Comment on above: Performed By: #### HEMDF, BM P3, CRP2, ESR #### [address] [address] [place], [place] Calcium [Mass/Vol] 9.0 mg/dL Normal 8.4-10.4 [facility] Comment on above: Performed By: #### HEMDF, BM P3, CRP2, ESR #### [facility] [address] [place], [place] CO2 [Moles/Vol] 28 mmol/L Normal 22-30 [facility] Comment on above: Performed By: #### HEMDF, BM P3, CRP2, ESR #### [facility] [address] [place], [place] Glucose [Mass/Vol] 155 mg/dL High 70-100 [facility] Comment on above: Performed By: #### HEMDF, BM P3, CRP2, ESR #### [facility] [address] [place], [place] Urea nitrogen [Mass/Vol] 22 mg/dL High 7-20 [facility] Comment on above: Performed By: #### HEMDF, BM P3, CRP2, ESR #### [address] [place], [place] Creatinine [Mass/Vol] 0.80 mg/dL Normal 0.52-1.25 [facility] Comment on above: Performed By: #### HEMDF, BM P3, CRP2, ESR #### [facility] [address] [place], [place] GFR/1.73 sq M predicted among blacks mL/min/{1.73_m2} Normal >60 [facility] MDRD (S/P/Bld) [Vol rate/Area] Comment on above: Performed By: #### HEMDF, BM P3, CRP2, ESR #### [facility] [address] [place], [place] GFR/1.73 sq M predicted among mL/min/{1.73_m2} Normal >60 [facility] non-blacks MDRD (S/P/Bld) [Vol rate/Area] Comment on above: Result Comment: Source- MDRD equation with creatinine calibration to IDMS(NKDEP) eGFR not recommended for elton g dose adjustment Performed By: #### HEMDF, BM P3, CRP2, ESR #### [facility] [address] [place], [place] Potassium [Moles/Vol] 4.5 mmol/L Normal 3.5-5.1 [facility] Comment on above: Performed By: #### HEMDF, BM P3, CRP2, ESR #### [employer] [facility] [address] [place], [place] Sodium [Moles/Vol] 134 mmol/L Low 135-145 [facility] Comment on above: Performed By: #### HEMDF, BM P3, CRP2, ESR #### [employer] [facility] [address] [place], [place] Chloride [Moles/Vol] 96 mmol/L Low 98-107 [facility] Comment on above: Performed By: #### HEMDF, BM P3, CRP2, ESR #### [facility] [address] [place], [place] Echo Complete w/wo Contrast on 03-13-20 19 Echo Patient Name: CASSI FAULKNER V Normal [facility] Complete [facility] w/wo System Contrast Ultrasound Exam Date/Time 03/13/2019 12:00:28 EDT Exam Echo Complete w/wo Contrast Ordering Physician [id number] SAMIR HERNANDEZ Accession Number [id number] Reason For Exam Blood culture positive for staphylococcal aureus Report TRANSTHORACIC ECHOCARDIOGRAM PATIENT: Cassi Faulkner V STUDY DATE: 03/13/2019 : 1960 AGE: 58 HT/WT: 175.3 cm (69 160.6 kg (353.3 in) lb) GENDER: M BP: 161 / 88 LOCATION: [facility] PATIENT Inpatient [facility] STATUS: *ORDERING PHYSICIAN: * Samir Gibbs *READING PHYSICIAN: * Olegario Wynn, *SWITCHBOARD OPERATOR HELPER : * AR Villavicencio DO, [facility] Sohan ESTRADA --- INDICATIONS: Blood culture positive [...] Electronically signed by Olegario Wynn DO, FS, [facility] 03/13/2019 16:44 Final Dictated: 03/13/2019 4:45 pm Dictating Physician: DO WYNN JOSEPH Signed Date and Time: 03/13/2019 4:45 pm Signed by: DO WYNN JOSEPH Glucose,Bedside on 03-13-2019 Glucose [Mass/Vol] 224 mg/dL High 70-100 [facility] Comment on above: Result Comment: Test perform ed by glucose meter. Results may be 10%-15% lower than serum/plasma values. (C LIO ID [id number]) Performed By: #### HEMDF, BM P3, CRP2, ESR #### [employer] [facility] [address] [place] [address] Glucose [Mass/Vol] 163 mg/dL High 70-100 [employer] Comment on above: Result Comment: Test perform ed by glucose meter. Results may be 10%-15% lower than serum/plasma values. (C LIO ID [id number]) Performed By: #### HEMDF, BM P3, CRP2, ESR #### [facility] [address] [place] [address] Glucose [Mass/Vol] 130 mg/dL High 70-100 [facility] Comment on above: Result Comment: Test perform ed by glucose meter. Results may be 10%-15% lower than serum/plasma values. (C LIO ID [id number]) Performed By: #### HEMDF, BM P3, CRP2, ESR #### [facility] [address] [place], [place] Hemogram w/ Autodiff on 03-13-2019 Abs Baso Cnt 0.0 10*3/uL Normal 0.0-0.2 [facility] stem Comment on above: Performed By: #### HEMDF, BM P3, CRP2, ESR #### [facility] [address] [place], [place] Abs Neutrophile Cnt 7.9 10*3/uL High 1.8-7.0 [facility] Comment on above: Performed By: #### HEMDF, BM P3, CRP2, ESR #### [place] [address] [place], [place] Basophils/100 WBC (Bld) 0.1 % Normal 0.0-2.0 [facility] Comment on above: Performed By: #### HEMDF, BM P3, CRP2, ESR #### [place] [address] [place], [place] Eosinophils (Bld) [#/Vol] 0.1 10*3/uL Normal 0.0-0.5 [facility] Comment on above: Performed By: #### HEMDF, BM P3, CRP2, ESR #### [place] [address] [place], [place] Eosinophils/100 WBC (Bld) 0.6 % Low 1.0-6.0 [facility] Comment on above: Performed By: #### HEMDF, BM P3, CRP2, ESR #### [place] [address] [place], [place] Erythrocyte distribution width (RBC) 15.7 % High 11.5 -14.5 [facility] [Ratio] Comment on above: Performed By: #### HEMDF, BM P3, CRP2, ESR #### [place] [address] [place], [place] Granulocytes/100 WBC (Bld) 75.5 % Normal 40.0-80.0 S [facility] Comment on above: Performed By: #### HEMDF, BM P3, CRP2, ESR #### [place] [place], [place] Hematocrit (Bld) [Volume fraction] 32.0 % Low 40.0-5 2.0 [facility] Comment on above: Performed By: #### HEMDF, BM P3, CRP2, ESR #### [place] [address] [place], [place] Hemoglobin (Bld) [Mass/Vol] 11.0 g/dL Low 13.0-18.0 [facility] Comment on above: Performed By: #### HEMDF, BM P3, CRP2, ESR #### [place] [address] [place], [place] Lymphocytes (Bld) [#/Vol] 1.1 10*3/uL Normal 1.0-4.3 [facility] Comment on above: Performed By: #### HEMDF, BM P3, CRP2, ESR #### [place] [place], [place] Lymphocytes/100 WBC (Bld) 10.1 % Low 20.0-40.0 [facility] Comment on above: Performed By: #### HEMDF, BM P3, CRP2, ESR #### [place] [address] [place], [place] MCH (RBC) [Entitic mass] 31.4 pg Normal 26.0-34.0 [facility] Comment on above: Performed By: #### HEMDF, BM P3, CRP2, ESR #### [place] [address] [place] MCHC (RBC) [Mass/Vol] 34.3 % Normal 32.0-36.0 [facility] Comment on above: Performed By: #### HEMDF, BM P3, CRP2, ESR #### [place] [address] [place] MCV (RBC) [Entitic vol] 91.6 fL Normal 80.0-98.0 [facility] Comment on above: Performed By: #### HEMDF, BM P3, CRP2, ESR #### [place] [address] [place], [place] Monocytes (Bld) [#/Vol] 1.4 10*3/uL High 0.0-0.8 [facility] Comment on above: Performed By: #### HEMDF, BM P3, CRP2, ESR #### [place] [place], [place] Monocytes/100 WBC (Bld) 13.7 % High 2.0-10.0 [facility] Comment on above: Performed By: #### HEMDF, BM P3, CRP2, ESR #### [place] [address] [place], [place] Platelet mean volume (Bld) [Entitic vol] 7.4 fL Normal 7.4-10.4 [facility] Comment on above: Performed By: #### HEMDF, BM P3, CRP2, ESR #### [place] [address] [place] Platelets (Bld) [#/Vol] 312 10*3/uL Normal 140-440 [facility] Comment on above: Performed By: #### HEMDF, BM P3, CRP2, ESR #### [place] [address] [place], [place] RBC (Bld) [#/Vol] 3.50 10*6/uL Low 4.40-5.90 [facility] Comment on above: Performed By: #### HEMDF, BM P3, CRP2, ESR #### [place] [address] [place] WBC (Bld) [#/Vol] 10.5 10*3/uL Normal 3.6-10.7 [facility] Comment on above: Performed By: #### HEMDF, BM P3, CRP2, ESR #### [place] [address] [place] Lactic Acid on 03-13-2019 Lactate [Moles/Vol] 0.8 mmol/L Normal 0.7-2.0 [facility] Comment on above: Performed By: #### HEMDF, BM P3, CRP2, ESR #### [place] [address] [place], [place] Arterial Blood Gases on 03-12-2019 CO2 [Moles/Vol] 27.8 mmol/L High 23.0-27.0 [facility] Comment on above: Performed By: #### HEMDF, BM P3, CRP2, ESR #### [place] [address] [place] HCO3 (Bld) [Moles/Vol] 26.5 mmol/L High 21.0-25.0 [facility] Comment on above: Performed By: #### HEMDF, BM P3, CRP2, ESR #### [place] [address] [place] Hemoglobin (Bld) [Mass/Vol] 11.1 g/dL Normal ScreenOnly [facility] Comment on above: Performed By: #### HEMDF, BM P3, CRP2, ESR #### [place] [address] [place], [place] Oxygen (Bld) [Partial pressure] 105.2 mm[Hg] High 80.0-100. 0 [facility] Comment on above: Performed By: #### HEMDF, BM P3, CRP2, ESR #### [place] [address] [place], [place] Oxygen saturation in Blood 97.8 % Normal 95.0-100.0 [facility] Comment on above: Performed By: #### HEMDF, BM P3, CRP2, ESR #### [place] [address] [place] pCO2 41.2 mm[Hg] Normal 35.0-45.0 [facility] Comment on above: Performed By: #### HEMDF, BM P3, CRP2, ESR #### [place] [place], [place] pH (Bld) 7.427 Normal 7.350-7.450 [facility] stem Comment on above: Performed By: #### HEMDF, BM P3, CRP2, ESR #### [facility] [address] [place], [place] Std Base Excess 2.0 mmol/L Normal -3.0-3.0 [facility] Comment on above: Performed By: #### HEMDF, BM P3, CRP2, ESR #### [facility] [address] [place], [place] FIO2 3l Normal [facility] Comment on above: Performed By: #### HEMDF, BM P3, CRP2, ESR #### [facility] [address] [place], [place] Comp Metabolic Panel on 03-12-2019 ALP [Catalytic activity/Vol] 88 U/L Normal 38-126 [facility] Comment on above: Performed By: #### HEMDF, BM P3, CRP2, ESR #### [place] [address] [place], [place] ALT [Catalytic activity/Vol] 22 U/L Normal 13-69 [facility] Comment on above: Performed By: #### HEMDF, BM P3, CRP2, ESR #### [place] [address] [place], [place] Anion gap [Moles/Vol] 10 Normal [facility] Comment on above: Performed By: #### HEMDF, BM P3, CRP2, ESR #### [place] [address] [place], [place] AST [Catalytic activity/Vol] 30 U/L Normal 15-46 [facility] Comment on above: Performed By: #### HEMDF, BM P3, CRP2, ESR #### [place] [address] [place], [place] Bilirubin [Mass/Vol] 0.2 mg/dL Normal 0.2-1.3 [facility] Comment on above: Performed By: #### HEMDF, BM P3, CRP2, ESR #### [place] [address] [place], [place] Calcium [Mass/Vol] 9.4 mg/dL Normal 8.4-10.4 [facility] Comment on above: Performed By: #### HEMDF, BM P3, CRP2, ESR #### [address] [place], [place] CO2 [Moles/Vol] 28 mmol/L Normal 22-30 [facility] Comment on above: Performed By: #### HEMDF, BM P3, CRP2, ESR #### [address] [place], [place] Glucose [Mass/Vol] 182 mg/dL High 70-100 [facility] Comment on above: Performed By: #### HEMDF, BM P3, CRP2, ESR #### [address] [address] [place], [place] Protein [Mass/Vol] 6.8 g/dL Normal 6.3-8.2 [facility] Comment on above: Performed By: #### HEMDF, BM P3, CRP2, ESR #### [address] [address] [place], [place] Urea nitrogen [Mass/Vol] 24 mg/dL High 7-20 [facility] Comment on above: Performed By: #### HEMDF, BM P3, CRP2, ESR #### [address] [address] [place], [place] Creatinine [Mass/Vol] 0.82 mg/dL Normal 0.52-1.25 [facility] Comment on above: Performed By: #### HEMDF, BM P3, CRP2, ESR #### [address] [place], [place] GFR/1.73 sq M predicted among blacks mL/min/{1.73_m2} Normal >60 [facility] MDRD (S/P/Bld) [Vol rate/Area] Comment on above: Performed By: #### HEMDF, BM P3, CRP2, ESR #### [address] [place] GFR/1.73 sq M predicted among mL/min/{1.73_m2} Normal >60 [facility] non-blacks MDRD (S/P/Bld) [Vol rate/Area] Comment on above: Result Comment: Source- MDRD equation with creatinine calibration to IDMS(NKDEP) eGFR not recommended for elton g dose adjustment Performed By: #### HEMDF, BM P3, CRP2, ESR #### [facility] [address] [place] [address] Albumin [Mass/Vol] 3.3 g/dL Low 3.5-5.0 [facility] Comment on above: Performed By: #### HEMDF, BM P3, CRP2, ESR #### [facility] [address] [place] [address] Potassium [Moles/Vol] 4.8 mmol/L Normal 3.5-5.1 [facility] Comment on above: Performed By: #### HEMDF, BM P3, CRP2, ESR #### [address] [place] [address] Sodium [Moles/Vol] 137 mmol/L Normal 135-145 [facility] Comment on above: Performed By: #### HEMDF, BM P3, CRP2, ESR #### [address] [place] [address] Chloride [Moles/Vol] 98 mmol/L Normal 98-107 [facility] Comment on above: Performed By: #### HEMDF, BM P3, CRP2, ESR #### [address] [place] [address] Glucose,Bedside on 03-12-2019 Glucose [Mass/Vol] 187 mg/dL High 70-100 [facility] Comment on above: Result Comment: Test perform ed by glucose meter. Results may be 10%-15% lower than serum/plasma values. (C LIO ID [id number]) Performed By: #### HEMDF, BM P3, CRP2, ESR #### [address] [place] [address] Glucose [Mass/Vol] 167 mg/dL High 70-100 [facility] Comment on above: Result Comment: Test perform ed by glucose meter. Results may be 10%-15% lower than serum/plasma values. (C LIO ID [id number]) Performed By: #### HEMDF, BM P3, CRP2, ESR #### [facility] [address] [place] [address] Glucose [Mass/Vol] 178 mg/dL High 70-100 [facility] Comment on above: Result Comment: Test perform ed by glucose meter. Results may be 10%-15% lower than serum/plasma values. (C LIO ID [id number]) Performed By: #### HEMDF, BM P3, CRP2, ESR #### [facility] [address] [place], [place] Glucose [Mass/Vol] 183 mg/dL High 70-100 [facility] Comment on above: Result Comment: Test perform ed by glucose meter. Results may be 10%-15% lower than serum/plasma values. (C LIO ID [id number]) Performed By: #### HEMDF, BM P3, CRP2, ESR #### [facility] [address] [place], [place] Glucose [Mass/Vol] 145 mg/dL High 70-100 [facility] Comment on above: Result Comment: Test perform ed by glucose meter. Results may be 10%-15% lower than serum/plasma values. (C LIO ID [id number]) Performed By: #### HEMDF, BM P3, CRP2, ESR #### [facility] [address] [address] [place], [place] Hemoglobin A1C on 03-12-2019 HbA1c (Bld) [Mass fraction] 8.2 % High 4.0-5.7 [facility] Comment on above: Result Comment: --HgbA1C lev els may not be accurate in patients who have renal disease, received rece nt blood transfusions, are anemic, or who have dyshemoglobinemi a. Performed By: #### HEMDF, BM P3, CRP2, ESR #### [facility] [address] [place], [place] HbA1c (Bld) [Mass fraction] 189 mg/dL Normal [facility] Comment on above: Performed By: #### HEMDF, BM P3, CRP2, ESR #### [facility] [address] [place], [place] Hemogram w/ Autodiff on 03-12-2019 Abs Baso Cnt 0.1 10*3/uL Normal 0.0-0.2 [facility] Comment on above: Performed By: #### HEMDF, BM P3, CRP2, ESR #### [address] [place], [place] Abs Neutrophile Cnt 12.2 10*3/uL High 1.8-7.0 [facility] Comment on above: Performed By: #### HEMDF, BM P3, CRP2, ESR #### [address] [place], [place] Basophils/100 WBC (Bld) 0.4 % Normal 0.0-2.0 [facility] Comment on above: Performed By: #### HEMDF, BM P3, CRP2, ESR #### [address] [place] Eosinophils (Bld) [#/Vol] 0.0 10*3/uL Normal 0.0-0.5 [facility] Comment on above: Performed By: #### HEMDF, BM P3, CRP2, ESR #### [address] [place] Eosinophils/100 WBC (Bld) 0.0 % Low 1.0-6.0 [facility] Comment on above: Performed By: #### HEMDF, BM P3, CRP2, ESR #### [address] [place] Erythrocyte distribution width (RBC) 16.0 % High 11.5 -14.5 [facility] [Ratio] Comment on above: Performed By: #### HEMDF, BM P3, CRP2, ESR #### [address] [place] Granulocytes/100 WBC (Bld) 87.0 % High 40.0-80.0 S [facility] Comment on above: Performed By: #### HEMDF, BM P3, CRP2, ESR #### [address] [place] Hematocrit (Bld) [Volume fraction] 33.1 % Low 40.0-5 2.0 [facility] Comment on above: Performed By: #### HEMDF, BM P3, CRP2, ESR #### [address] [address] [place] Hemoglobin (Bld) [Mass/Vol] 11.1 g/dL Low 13.0-18.0 [facility] Comment on above: Performed By: #### HEMDF, BM P3, CRP2, ESR #### [address] [place] Lymphocytes (Bld) [#/Vol] 0.7 10*3/uL Low 1.0-4.3 [facility] Comment on above: Performed By: #### HEMDF, BM P3, CRP2, ESR #### [address] Lymphocytes/100 WBC (Bld) 4.8 % Low 20.0-40.0 [facility] Comment on above: Performed By: #### HEMDF, BM P3, CRP2, ESR #### [address] MCH (RBC) [Entitic mass] 30.2 pg Normal 26.0-34.0 [facility] Comment on above: Performed By: #### HEMDF, BM P3, CRP2, ESR #### [address] [place] MCHC (RBC) [Mass/Vol] 33.5 % Normal 32.0-36.0 [facility] Comment on above: Performed By: #### HEMDF, BM P3, CRP2, ESR #### [address] MCV (RBC) [Entitic vol] 90.2 fL Normal 80.0-98.0 [facility] Comment on above: Performed By: #### HEMDF, BM P3, CRP2, ESR #### [address] [address] [place], [place] Monocytes (Bld) [#/Vol] 1.1 10*3/uL High 0.0-0.8 [facility] Comment on above: Performed By: #### HEMDF, BM P3, CRP2, ESR #### [address] [place] Monocytes/100 WBC (Bld) 7.8 % Normal 2.0-10.0 [facility] Comment on above: Performed By: #### HEMDF, BM P3, CRP2, ESR #### [address] [place] Platelet mean volume (Bld) [Entitic vol] 7.5 fL Normal 7.4-10.4 [facility] Comment on above: Performed By: #### HEMDF, BM P3, CRP2, ESR #### [address] [place] Platelets (Bld) [#/Vol] 361 10*3/uL Normal 140-440 [facility] Comment on above: Performed By: #### HEMDF, BM P3, CRP2, ESR #### [address] [place], [place] RBC (Bld) [#/Vol] 3.67 10*6/uL Low 4.40-5.90 [facility] Comment on above: Performed By: #### HEMDF, BM P3, CRP2, ESR #### [address] [place] WBC (Bld) [#/Vol] 14.0 10*3/uL High 3.6-10.7 [facility] Comment on above: Performed By: #### HEMDF, BM P3, CRP2, ESR #### [address] [place] Lactic Acid on 03-12-2019 Lactate [Moles/Vol] 0.9 mmol/L Normal 0.7-2.0 [facility] Comment on above: Performed By: #### HEMDF, BM P3, CRP2, ESR #### [address] [place] Lactate [Moles/Vol] 2.3 mmol/L Critically high 0.7-2.0 [facility] Comment on above: Result Comment: Repeated Performed By: #### HEMDF, BM P3, CRP2, ESR #### [address] [place] Procalcitonin on 03-12-2019 Procalcitonin 0.10 ng/mL Abnormal <0.10 [facility] Comment on above: Performed By: #### HEMDF, BM P3, CRP2, ESR #### [address] [place], [place] Thyroid Stim. Hormone on 03-12-2019 Thyroid Stim. Hormone 1.428 u[IU]/mL Normal 0.465-4.680 [facility] Comment on above: Performed By: #### HEMDF, BM P3, CRP2, ESR #### [address] [place], [place] Basic Metabolic Panel on 03-11-2019 Calcium [Mass/Vol] 9.8 mg/dL Normal 8.4-10.4 [facility] Comment on above: Performed By: #### HEMDF, BM P3, CRP2, ESR #### [address] [place] Anion gap [Moles/Vol] 12 Normal [facility] Comment on above: Performed By: #### HEMDF, BM P3, CRP2, ESR #### [address] [place] CO2 [Moles/Vol] 26 mmol/L Normal 22-30 [facility] Comment on above: Performed By: #### HEMDF, BM P3, CRP2, ESR #### [address] [place] Creatinine [Mass/Vol] 0.67 mg/dL Normal 0.52-1.25 [facility] Comment on above: Performed By: #### HEMDF, BM P3, CRP2, ESR #### [address] [place], [place] GFR/1.73 sq M predicted among blacks mL/min/{1.73_m2} Normal >60 [facility] MDRD (S/P/Bld) [Vol rate/Area] Comment on above: Performed By: #### HEMDF, BM P3, CRP2, ESR #### [facility] [address] [place] [address] GFR/1.73 sq M predicted among mL/min/{1.73_m2} Normal >60 [facility] non-blacks MDRD (S/P/Bld) [Vol rate/Area] Comment on above: Result Comment: Source- MDRD equation with creatinine calibration to IDMS(NKDEP) eGFR not recommended for elton g dose adjustment Performed By: #### HEMDF, BM P3, CRP2, ESR #### [facility] [address] [place] [address] Glucose [Mass/Vol] 192 mg/dL High 70-100 [facility] Comment on above: Performed By: #### HEMDF, BM P3, CRP2, ESR #### [facility] [address] [place] [address] Urea nitrogen [Mass/Vol] 20 mg/dL Normal 7-20 [facility] Comment on above: Performed By: #### HEMDF, BM P3, CRP2, ESR #### [address] [address] Chloride [Moles/Vol] 101 mmol/L Normal 98-107 [facility] Comment on above: Performed By: #### HEMDF, BM P3, CRP2, ESR #### [facility] [address] [place] [address] Potassium [Moles/Vol] 4.7 mmol/L Normal 3.5-5.1 [facility] Comment on above: Performed By: #### HEMDF, BM P3, CRP2, ESR #### [facility] [address] [place] [address] Sodium [Moles/Vol] 138 mmol/L Normal 135-145 [facility] Comment on above: Performed By: #### HEMDF, BM P3, CRP2, ESR #### [facility] [address] [place] [place] [address] Drugs of Abuse on 03-11-2019 Phencyclidine (PCP), Ur Negative Normal [facility] Comment on above: Result [...] order. Performed By: #### DRGA4 ### # [address] [place] [address] Methadone, Ur Negative Normal [facility] Comment on above: Performed By: #### DRGA4 ### # [address] [place] [address] Opiates, Ur Positive Normal [facility] Comment on above: Performed By: #### DRGA4 ### # [address] [place] [address] Cocaine, Ur Negative Normal [facility] Comment on above: Performed By: #### DRGA4 ### # [facility] [address] [place] [place] [address] Barbiturates, Ur Negative Normal [facility] Comment on above: Performed By: #### DRGA4 ### # [facility] [address] [place] [place] [address] Benzodiazepines, Ur Negative Normal [facility] Comment on above: Performed By: #### DRGA4 ### # [address] [place] [address] Amphetamines, Ur Negative Normal [facility] Comment on above: Performed By: #### DRGA4 ### # [address] [place], [place] Oxycodone/Oxymorphine,Ur Negative Normal [facility] Comment on above: Performed By: #### DRGA4 ### # [facility] [address] [place], [place] Glucose,Bedside on 03-11-2019 Glucose [Mass/Vol] 247 mg/dL High 70-100 [facility] Comment on above: Result Comment: Test perform ed by glucose meter. Results may be 10%-15% lower than serum/plasma values. (C LIO ID [id number]) Performed By: #### HEMDF, BM P3, CRP2, ESR #### [address] [place], [place] Glucose [Mass/Vol] 194 mg/dL High 70-100 [facility] Comment on above: Result Comment: Test perform ed by glucose meter. Results may be 10%-15% lower than serum/plasma values. (C LIO ID [id number]) Performed By: #### HEMDF, BM P3, CRP2, ESR #### [address] [place] Glucose [Mass/Vol] 191 mg/dL High 70-100 [facility] Comment on above: Result Comment: Test perform ed by glucose meter. Results may be 10%-15% lower than serum/plasma values. (C LIO ID [id number]) Performed By: #### HEMDF, BM P3, CRP2, ESR #### [address] [place] Glucose [Mass/Vol] 123 mg/dL High 70-100 [facility] Comment on above: Result Comment: Test perform ed by glucose meter. Results may be 10%-15% lower than serum/plasma values. (C LIO ID [id number]) Performed By: #### HEMDF, BM P3, CRP2, ESR #### [address] [place], [place] Hemogram w/ Autodiff on 03-11-2019 Abs Baso Cnt 0.0 10*3/uL Normal 0.0-0.2 [facility] Comment on above: Performed By: #### HEMDF, BM P3, CRP2, ESR #### [facility] [address] [place], [place] Abs Neutrophile Cnt 10.1 10*3/uL High 1.8-7.0 [facility] Comment on above: Performed By: #### HEMDF, BM P3, CRP2, ESR #### [facility] [address] [place], [place] Basophils/100 WBC (Bld) 0.1 % Normal 0.0-2.0 [facility] Comment on above: Performed By: #### HEMDF, BM P3, CRP2, ESR #### [address] [place] Eosinophils (Bld) [#/Vol] 0.0 10*3/uL Normal 0.0-0.5 [facility] Comment on above: Performed By: #### HEMDF, BM P3, CRP2, ESR #### [address] [place] Eosinophils/100 WBC (Bld) 0.0 % Low 1.0-6.0 [facility] Comment on above: Performed By: #### HEMDF, BM P3, CRP2, ESR #### [address] [place] Erythrocyte distribution width (RBC) 15.4 % High 11.5 -14.5 [facility] [Ratio] Comment on above: Performed By: #### HEMDF, BM P3, CRP2, ESR #### [facility] [address] [place] [address] Granulocytes/100 WBC (Bld) 87.3 % High 40.0-80.0 S [facility] Comment on above: Performed By: #### HEMDF, BM P3, CRP2, ESR #### [facility] [address] [place] [address] Hematocrit (Bld) [Volume fraction] 36.4 % Low 40.0-5 2.0 [facility] Comment on above: Performed By: #### HEMDF, BM P3, CRP2, ESR #### [address] [place] Hemoglobin (Bld) [Mass/Vol] 12.1 g/dL Low 13.0-18.0 [facility] Comment on above: Performed By: #### HEMDF, BM P3, CRP2, ESR #### [address] [place] Lymphocytes (Bld) [#/Vol] 0.7 10*3/uL Low 1.0-4.3 [facility] Comment on above: Performed By: #### HEMDF, BM P3, CRP2, ESR #### [address] [address] [place], [place] Lymphocytes/100 WBC (Bld) 5.7 % Low 20.0-40.0 [facility] Comment on above: Performed By: #### HEMDF, BM P3, CRP2, ESR #### [address] [place] MCH (RBC) [Entitic mass] 30.6 pg Normal 26.0-34.0 [facility] Comment on above: Performed By: #### HEMDF, BM P3, CRP2, ESR #### [address] MCHC (RBC) [Mass/Vol] 33.2 % Normal 32.0-36.0 [facility] Comment on above: Performed By: #### HEMDF, BM P3, CRP2, ESR #### [address] [place] MCV (RBC) [Entitic vol] 91.9 fL Normal 80.0-98.0 [facility] Comment on above: Performed By: #### HEMDF, BM P3, CRP2, ESR #### [address] Monocytes (Bld) [#/Vol] 0.8 10*3/uL Normal 0.0-0.8 [facility] Comment on above: Performed By: #### HEMDF, BM P3, CRP2, ESR #### [address] [place], [place] Monocytes/100 WBC (Bld) 6.9 % Normal 2.0-10.0 [facility] Comment on above: Performed By: #### HEMDF, BM P3, CRP2, ESR #### [address] [place] Platelet mean volume (Bld) [Entitic vol] 7.5 fL Normal 7.4-10.4 [facility] Comment on above: Performed By: #### HEMDF, BM P3, CRP2, ESR #### [address] [place] Platelets (Bld) [#/Vol] 372 10*3/uL Normal 140-440 [facility] Comment on above: Performed By: #### HEMDF, BM P3, CRP2, ESR #### [address] [place], [place] RBC (Bld) [#/Vol] 3.96 10*6/uL Low 4.40-5.90 [facility] Comment on above: Performed By: #### HEMDF, BM P3, CRP2, ESR #### [address] [place] WBC (Bld) [#/Vol] 11.6 10*3/uL High 3.6-10.7 [facility] Comment on above: Performed By: #### HEMDF, BM P3, CRP2, ESR #### [address] [place], [place] MRI Spine Lumbar w/ Contrast on 019 MRI Spine Lumbar w/ Patient Name: CASSI FAULKNER V Normal [facility] Contrast MRI Exam Date/Time 03/10/2019 22:44:50 EDT Exam MRI Spine Lumbar w/ Contrast Ordering Physician DONTA VERNON Accession Number [id number] CPT4 Codes 68885 () Reason For Exam r/o epidural abscess [...] w/ + Patient Name: CASSI FAULKNER V [facility] w/o Contrast MRI Exam Date/Time 03/10/2019 22:44:50 EDT Exam MRI Spine Thoracic w/ + w/o Contrast Ordering Physician [id number] JOHNSON Accession Number [id number] CPT4 Codes 10524 () Reason For Exam r/o epidural abscess [...] No discrete abscess. Report Dictated on Workstation: [id number] Final Dictated: 03/10/2019 10:59 pm Dictating Physician: MD HARMAN WENDELL Signed Date and Time: 03/10/2019 11:12 pm Signed by: MD HARMAN WENDELL Transcribed Date and Time: 03/10/2019 10:59 Procalcitonin on 03-11-2019 Interpretation See Below [facility] Comment on above: Result Comment: PCT <0.50 = Low risk of severe sepsis and/or septic shock. PCT >2.00 = High risk of sev ere sepsis and/or septic shock. Performed By: #### HEMDF, BM P3, CRP2, ESR #### [facility] [address] [place], [place] Prothrombin Time on 03-11-2019 INR Coag (PPP) [Relative time] 1.0 Normal 0.9-1.1 [facility] Comment on above: Result Comment: Recommended Anticoagulant [...] Myocardial Infarction Performed By: #### PT #### [address] [place], [place] PT Coag (PPP) [Time] 10.2 s Normal 9.0-12.0 [facility] Comment on above: Result Comment: . Performed By: #### PT #### [facility] [address] [address] [place], [place] TS GEL on 03-11-2019 TS GEL ABO Group: Normal [facility] O Rh, Gel: POS Antibody Screen Gel: NEG Comment on above: Performed By: #### TSGL #### [facility] [address] [place] [address] Basic Metabolic Panel on 03-10-2019 Anion gap [Moles/Vol] 9 Normal [facility] Comment on above: Performed By: #### HEMDF, BM P3, CRP2, ESR #### [facility] [address] [address] [place], [place] Calcium [Mass/Vol] 9.8 mg/dL Normal 8.4-10.4 [facility] Comment on above: Performed By: #### HEMDF, BM P3, CRP2, ESR #### [facility] [address] [place], [place] CO2 [Moles/Vol] 27 mmol/L Normal 22-30 [facility] Comment on above: Performed By: #### HEMDF, BM P3, CRP2, ESR #### [address] [place], [place] Glucose [Mass/Vol] 234 mg/dL High 70-100 [facility] Comment on above: Performed By: #### HEMDF, BM P3, CRP2, ESR #### [address] [place], [place] Urea nitrogen [Mass/Vol] 22 mg/dL High 7-20 [facility] Comment on above: Performed By: #### HEMDF, BM P3, CRP2, ESR #### [address] [place], [place] Creatinine [Mass/Vol] 0.77 mg/dL Normal 0.52-1.25 [facility] Comment on above: Performed By: #### HEMDF, BM P3, CRP2, ESR #### [address] [place], [place] GFR/1.73 sq M predicted among blacks mL/min/{1.73_m2} Normal >60 [facility] MDRD (S/P/Bld) [Vol rate/Area] Comment on above: Performed By: #### HEMDF, BM P3, CRP2, ESR #### [address] [place], [place] GFR/1.73 sq M predicted among mL/min/{1.73_m2} Normal >60 [facility] non-blacks MDRD (S/P/Bld) [Vol rate/Area] Comment on above: Result Comment: Source- MDRD equation with creatinine calibration to IDMS(NKDEP) eGFR not recommended for elton g dose adjustment Performed By: #### HEMDF, BM P3, CRP2, ESR #### [address] [place], [place] Chloride [Moles/Vol] 101 mmol/L Normal 98-107 [facility] Comment on above: Performed By: #### HEMDF, BM P3, CRP2, ESR #### [address] [place] [address] Potassium [Moles/Vol] 5.2 mmol/L High 3.5-5.1 [facility] Comment on above: Performed By: #### HEMDF, BM P3, CRP2, ESR #### [facility] [address] [place] [address] Sodium [Moles/Vol] 137 mmol/L Normal 135-145 [facility] Comment on above: Performed By: #### HEMDF, BM P3, CRP2, ESR #### [facility] [address] [place] [address] C-Reactive Protein on 03-10-2019 CRP [Mass/Vol] 67.9 mg/L High 0.0-6.0 [facility] Comment on above: Result Comment: . Performed By: #### HEMDF, BM P3, CRP2, ESR #### [facility] [address] [place], [place] CR Chest 1 View Frontal on 03-10-2019 CR Chest 1 View Frontal Patient Name: CASSI FAULKNER V Normal [facility] Diagnostic Radiology Exam Date/Time 03/10/2019 21:25:47 EDT Exam CR Chest 1 View Frontal Ordering Physician [id number] JOHNSON Accession Number [id number] CPT4 Codes 51772 () Reason For Exam preop Report CLINICAL [...] Abs Baso Cnt 0.0 10*3/uL Normal 0.0-0.2 [facility] Comment on above: Performed By: #### HEMDF, BM P3, CRP2, ESR #### [facility] [address] [place], [place] Abs Neutrophile Cnt 8.6 10*3/uL High 1.8-7.0 [facility] Comment on above: Performed By: #### HEMDF, BM P3, CRP2, ESR #### [facility] [address] [place], [place] Basophils/100 WBC (Bld) 0.4 % Normal 0.0-2.0 [facility] Comment on above: Performed By: #### HEMDF, BM P3, CRP2, ESR #### [place] [address] [place], [place] Eosinophils (Bld) [#/Vol] 0.0 10*3/uL Normal 0.0-0.5 [facility] Comment on above: Performed By: #### HEMDF, BM P3, CRP2, ESR #### [facility] [address] [place], [place] Eosinophils/100 WBC (Bld) 0.2 % Low 1.0-6.0 [facility] Comment on above: Performed By: #### HEMDF, BM P3, CRP2, ESR #### [facility] [address] [place], [place] Erythrocyte distribution width (RBC) 15.5 % High 11.5 -14.5 [facility] [Ratio] Comment on above: Performed By: #### HEMDF, BM P3, CRP2, ESR #### [facility] [address] [place], [place] Granulocytes/100 WBC (Bld) 93.3 % High 40.0-80.0 [facility] Comment on above: Performed By: #### HEMDF, BM P3, CRP2, ESR #### [facility] [address] [place], [place] Hematocrit (Bld) [Volume fraction] 35.9 % Low 40.0-5 2.0 [facility] Comment on above: Performed By: #### HEMDF, BM P3, CRP2, ESR #### [place] [address] [place], [place] Hemoglobin (Bld) [Mass/Vol] 12.3 g/dL Low 13.0-18.0 [facility] Comment on above: Performed By: #### HEMDF, BM P3, CRP2, ESR #### [place] [address] [place], [place] Lymphocytes (Bld) [#/Vol] 0.5 10*3/uL Low 1.0-4.3 [facility] Comment on above: Performed By: #### HEMDF, BM P3, CRP2, ESR #### [place] [address] [place], [place] Lymphocytes/100 WBC (Bld) 5.0 % Low 20.0-40.0 [facility] Comment on above: Performed By: #### HEMDF, BM P3, CRP2, ESR #### [place] [address] [place], [place] MCH (RBC) [Entitic mass] 31.2 pg Normal 26.0-34.0 [facility] Comment on above: Performed By: #### HEMDF, BM P3, CRP2, ESR #### [address] MCHC (RBC) [Mass/Vol] 34.3 % Normal 32.0-36.0 [facility] Comment on above: Performed By: #### HEMDF, BM P3, CRP2, ESR #### [place] [address] [place] MCV (RBC) [Entitic vol] 91.0 fL Normal 80.0-98.0 [facility] Comment on above: Performed By: #### HEMDF, BM P3, CRP2, ESR #### [place] [address] [place], [place] Monocytes (Bld) [#/Vol] 0.1 10*3/uL Normal 0.0-0.8 [facility] Comment on above: Performed By: #### HEMDF, BM P3, CRP2, ESR #### [place] [address] [place], [place] Monocytes/100 WBC (Bld) 1.1 % Low 2.0-10.0 [facility] Comment on above: Performed By: #### HEMDF, BM P3, CRP2, ESR #### [place] [address] [place] Platelet mean volume (Bld) [Entitic vol] 7.6 fL Normal 7.4-10.4 [facility] Comment on above: Performed By: #### HEMDF, BM P3, CRP2, ESR #### [place] [address] [place], [place] Platelets (Bld) [#/Vol] 395 10*3/uL Normal 140-440 [facility] Comment on above: Performed By: #### HEMDF, BM P3, CRP2, ESR #### [place] [address] [place] RBC (Bld) [#/Vol] 3.94 10*6/uL Low 4.40-5.90 [facility] Comment on above: Performed By: #### HEMDF, BM P3, CRP2, ESR #### [place] [address] [place] WBC (Bld) [#/Vol] 9.2 10*3/uL Normal 3.6-10.7 [facility] Comment on above: Performed By: #### HEMDF, BM P3, CRP2, ESR #### [place] [address] [place], [place] MRI Spine Lumbar w/o Contrast on 2018 MRI Spine Lumbar w/o Patient Name: CASSI FAULKNER V Normal [facility] Contrast MRI Exam Date/Time 03/10/2019 15:03:40 EDT Exam MRI Spine Lumbar w/o Contrast Ordering Physician MD CARA, ReInnervate Accession Number [id number] CPT4 Codes 72754 () Reason For Exam Lumbar radiculopathy,Trauma Report [...] is small amount of fluid signal intensity devops engineer ior to the L4 and L5 vertebral [...] central canal is present. Moderate right and spuk-dd-tcqsyjan left-side d foraminal narrowing is noted. Impression: [...] the he was dir ected to the [facility] emergency department. I also discussed this case with the emergency room charge nurse at approximately 3:30 PM o n 03/10/2019.. Report Dictated on Final Dictated: 03/10/2019 3:29 pm Dictating Physician: MD OROPEZA KRIKOR Signed Date and Time: 03/10/2019 3:40 pm Signed by: MD OROPEZA KRIKOR Transcribed Date and Time: 03/10/2019 3:29 Sed Rate on 03-10-2019 Sed Rate 123 mm/h High 0-10 [facility] Comment on above: Performed By: #### HEMDF, BM P3, CRP2, ESR #### [facility] [address] [place] [id number] Vital Signs Date Time Vital Sign Value Performing Clinician Facilit y 11-26-2021 Body temperature 98.6 [degF] JONN STOUT MD [facility] 18:49-0400 Wo rk 11-26-2021 Diastolic blood 86 mm[Hg] JONN STOUT MD [facility] 18:49-0400 pressure Wo rk 11-26-2021 Heart rate 83 /min JONN STOUT [facility] 18:49-[facility]00 Wo rk 11-26-2021 Respiratory rate 20 /min JONN STOUT MD [facility] 18:49-0400 Wo rk 11-26-2021 Systolic blood 159 mm[Hg] JONN Cabrera [facility]spital [facility] 18:49-0400 pressure Wo rk Encounters Encounter Date Encounter Type Care Provider Facility Start: 11-26-2021 Emergency department JONN STOUT MD [facility] End: 11-26-2021 patient visit Work P nicolas: Start: 02-12-2020 [facility] [address] [facility] [...] #### HEMDF, BM P3, CRP2, ESR #### [employer] [address] [place], [place] Start: 03-13-2019 Microscopic examination of blood, culture Comment on above: Order Comment: Specimen Sour ce Comment:Blood Performed By: #### HEMDF, BM P3, CRP2, ESR #### [employer] [place] [address] [place], [place] Plan of Treatment Date Care Activity Detail Author Start: Influenza vaccination Flu vaccine (Season Ended) [facility]- 04-16-2020 [place] Start: Creatinine measurement Creatinine monitoring [facility] 03-13-2020 [place] Start: Potassium monitoring Potassium monitoring [facility] 03-13-2020 [place] Start: HbA1c (Bld) [Mass fraction] A1C test (Diabetic o r [facility]03-12-2020 Prediabetic) [place] Start: TSH Qn TSH testing [facility] 03-12-2020 [place] Start: Lipid panel Lipid screen [facility] 02-02-2020 [place] Start: Screening for malignant Colon Cancer Screen [facility]12-25-2017 neoplasm of colon FIT/FOBT [place] Start: Shingles Vaccine (1 of 2) Shingles Vaccine (1 of 2) [facility]2010 [place] Start: DTaP/Tdap/Td vaccine (1 - DTaP/Tdap/Td vaccine ( 1 - [facility]1979 Tdap) Tdap) [place] Start: Hepatitis B vaccine (1 of 3 Hepatitis B vaccine (1 of 3 [facility] 1979 - Risk 3-dose series) - Risk 3-dose series) [place] Start: Diabetic microalbuminuria Diabetic microalbuminu joseph [facility] 1978 test test [place] Start: HIV screening HIV screen [facility] 1975 [place] Start: Diabetic foot examination Diabetic foot exam [facility] 1970 [place] Start: Diabetic retinal exam Diabetic retinal exam [facility] [place] Start: Hepatitis C screening Hepatitis C screen [facility] [place] Payers Date Payer Category Payer Unknown [employer] xx xxxxxxxxxx [address] xxxxxxxxxxxx [id number] 2018-Present [phone] [address] [place] [address] Social History Date Type Detail Facility Start: 03-15-2019 Tobacco smoking status Never smoker [place], [place] NHIS Start: 03-15-2019 Alcohol intake Current non-drinker of [place], [place] alcohol (finding) Sex Assigned At Not on file [place], [place] Goals Date Patient Goal Desired Activity/Sta [...] other sugar drinks. Patient given after visit [facility] which includes educational information on Nutrition. Discussed use, benefit, and side effects of prescribed medications and barriers to medication compliance addressed, if applicable. All patient questions answered and patient voiced understanding. Dg keane was given a copy of this, and was advised to call if any questions. Functional Status Date Assessment Result Facility 11-26-2021 Functional Status [facility] Work Phone: 11-26-2021 Functional Status [facility] Work Phone: Mental Status Date Assessment Result Facility 11-26-2021 Mental Status [facility] Work Phone: 11-26-2021 Mental Status [facility] Work Phone: Hospital Discharge instructions 11-26-2021 Note Date & Type Note Facility 11-26-2021 Hospital Discharge Patient Education 11/26/2021 20:11:20 Ankle Sprain (Adult) Ankle Sprain (Adult) [facility] instructions Work Phone: An ankle [...] thin towel or cloth. You may use euqo-olb-ozcgph r pain medicine (NSAIDS or nonsteroidal anti- [...] or is irritated You re-injure your ankle [id number] [employer]. [address] [place] [address]. All rights reserved. This information is not intended as a substitute for professional medical care. Always follow your healthcare professional's instructions. Follow Up Care 11/26/2021 18:47:48 With:DILLON MARROQUIN MD Address: [facility]/[place] [address] [place] [address]- When:2-4 days Comments:Make an appointment in 2 to 4 days with your physician. Return if you are worse in any way. 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 [facility] [employer] [facility]. provides no warranty or guarantee of the accuracy or completeness of information in this document.
--- NOTE | 2022-08-20 09:50 | NURSING ---
Emergency documentation per machine sign writer.
[2022-08-20] MEDS: Insulin Lispro 100 UNIT/ML INSULN.PEN SC ×3 (10:45→22:14)
[2022-08-20] MEDS: Enoxaparin 40 MG/0.4 ML Syringe SC (10:45)
[2022-08-20] MEDS: Insulin Glargine-YFGN 100 UNIT/ML Pen 10 UNIT SC (11:20)
[2022-08-20] MEDS: FLU VACC QS2022-23(6MOS UP)/PF 60 MCG/0.5 ML SYRINGE IM (11:21)
[2022-08-20 11:55] LABS: Bedside Glucose 420 mg/dL (74-106)
--- NOTE | 2022-08-20 14:14 | CHAPLAIN ---
Type of Pastoral Visit _x__ Initial Visit ___ Follow-up Visit ___ On-call Visit ___ General Patient Visit ___ Spiritual Assessment ___ Family Conference ___ Bereavement ___ Rapid Response ___ Code Blue ___ Other (describe below) Pastoral Care Referral From _x__ Patient ___ Family ___ Nurse ___ Physician ___ Thermostat Machine Tender ___ Drivers License Examiner ___ Other (describe below) Sacrament/Intervention _x__ Active listening ___ Anointing ___ Congregational ___ Bereavement ___ Communion ___ Irish exploration ___ _x__ Life review _x__ Prayer ___ Reconciliation ___ Sacrament of Sick _x__ Supportive presence ___ Wedding ___ Other (describe below) Pastoral Comments patient speaks of the many family deaths in the last few years and of his brother in particular; pt gives update on his health needs; pt identifies self as a believer and welcomes spiritual care support and prayer
[2022-08-20] MEDS: Acetaminophen 325 MG Tablet 650 MG PO (14:25)
--- NOTE | 2022-08-20 16:10 | HP.PCM.HOS_ITS ---
HPI - General General Date of Admission: 08/20/22 HPI Narrative CASSI MORA, is a 61 M who presents to the hospital with increased shortness of breath is fever and weakness. He does have a history of hypertension and type 2 diabetes but he has decided to stop taking all of his medications because he just did not want to take them anymore. He has been having intermittent loose stools and diarrhea for the last several days as well, COVID and flu testing were negative as was a full respiratory panel, chest x-ray does show bilateral groundglass opacities that does have an appearance consistent with viral pneumonia. He does not have a leukocytosis and his hypoxia was only evident with ambulation. He was given a dose of Rocephin and azithromycin in the ER. [facility] Medical History Chronic pain HTN (hypertension) Hyperlipidemia Hypothyroid RO (obstructive sleep apnea) Home Medications NK 08/20/22 [History Last Taken Unknown] Allergy/AdvReac Type Severity Reaction Status Date / Time No Known Allergies Allergy Verified 06/09/21 15:04 Family History Other CAD (coronary artery disease) Surgical History (Updated 08/20/22 @ 04:24 by Zari Varghese) H/O Spinal surgery Social History adopted: No household members: spouse housing: house Smoking Status: Never smoker ROS Constitutional Constitutional: Reports fever(s) and weakness; Denies chills, fatigue or malaise Eyes Eyes: Denies blurry vision ENT HEENT: Denies headache(s) or nasal discharge Cardiovascular Cardiovascular: Denies chest pain, dyspnea on exertion or syncope Respiratory/Chest Respiratory/Chest: Denies cough, shortness of breath at rest or shortness of breath with exertion Gastrointestinal Gastrointestinal: Denies constipation, diarrhea, nausea or vomiting Genitourinary Genitourinary: Denies dysuria Neurologic Neurologic: Denies focal weakness, numbness or tremor(s) Psychiatric Psychiatric: Denies anxiety or depression Vital Signs Vital Signs Vital Signs: 08/20/22 04:19 08/20/22 04:29 08/20/22 05:07 Temperature 102.7 F H 103.1 F H Temperature Source Oral Oral Pulse Rate 105 H 103 H Respiratory Rate 23 H 18 Respiratory Effort Normal Non-Labored Respiratory Depth Respiratory Pattern Tachypnea Blood Pressure 154/102 H 173/101 H Blood Pressure Mean 119 125 Blood Pressure Source Blood Pressure Position Blood Pressure Location Pulse Ox 89 93 Oxygen Delivery Method Room Air Nasal Cannula Oxygen Flow Rate (L/min) 08/20/22 04:50 08/20/22 05:50 08/20/22 06:00 Temperature 101 F H 101 F H Temperature Source Oral Oral Pulse Rate 102 H 92 93 Respiratory Rate 17 21 H 26 H Respiratory Effort Respiratory Depth Respiratory Pattern Blood Pressure 152/89 H 135/77 H 146/94 H Blood Pressure Mean 110 96 111 Blood Pressure Source Blood Pressure Position Blood Pressure Location Pulse Ox 91 96 95 Oxygen Delivery Method Room Air Room Air Room Air Oxygen Flow Rate (L/min) 08/20/22 07:48 08/20/22 08:56 08/20/22 10:02 Temperature 98.9 F 98.9 F Temperature Source Oral Oral Pulse Rate 87 84 Respiratory Rate 15 17 Respiratory Effort Normal Non-Labored Respiratory Depth Normal Respiratory Pattern Normal Blood Pressure 144/85 H 144/85 H Blood Pressure Mean 104 104 Blood Pressure Source Blood Pressure Position Blood Pressure Location Pulse Ox 95 94 Oxygen Delivery Method Nasal Cannula Nasal Cannula Oxygen Flow Rate (L/min) 4 4 08/20/22 10:21 08/20/22 10:25 08/20/22 11:24 Temperature 97.8 F 97.8 F 97.8 F Temperature Source Oral Oral Oral Pulse Rate 77 78 78 Respiratory Rate 16 16 16 Respiratory Effort Respiratory Depth Respiratory Pattern Blood Pressure 111/71 111/71 111/71 Blood Pressure Mean 84 84 84 Blood Pressure Source Monitor Blood Pressure Position Semi-Fowlers Blood Pressure Location Left Arm Pulse Ox 95 96 96 Oxygen Delivery Method Nasal Cannula Nasal Cannula Nasal Cannula Oxygen Flow Rate (L/min) 4 4 4 08/20/22 12:43 08/20/22 14:06 08/20/22 14:00 Temperature 97.8 F 98.2 F 98.2 F Temperature Source Oral Oral Oral Pulse Rate 78 88 89 Respiratory Rate 16 16 16 Respiratory Effort Respiratory Depth Respiratory Pattern Blood Pressure 111/71 170/82 H 170/82 H Blood Pressure Mean 84 111 111 Blood Pressure Source Monitor Blood Pressure Position Blood Pressure Location Pulse Ox 96 100 100 Oxygen Delivery Method Nasal Cannula Room Air Room Air Oxygen Flow Rate (L/min) 4 01/05/23 14:00 Temperature Temperature Source Pulse Rate Respiratory Rate Respiratory Effort Non-Labored Respiratory Depth Respiratory Pattern Blood Pressure Blood Pressure Mean Blood Pressure Source Blood Pressure Position Blood Pressure Location Pulse Ox Oxygen Delivery Method Nasal Cannula Oxygen Flow Rate (L/min) 4 Weight Weight: 337 lb 4.916 oz Body Mass Index (BMI) 49.8 Physical Exam Narrative General: Alert, Oriented x3, Cooperative, No apparent distress HEENT: Atraumatic, PERRLA, EOMI, Normocephalic Oral: Moist Mucosa Neck: Supple, No JVD Lungs: Diminished, Normal air movement, No rhonchi, No wheeze, No rales Cardiovascular: Regular rate, Regular Rhythm, Normal S1, Normal S2, No murmurs Abdomen: Soft, Non Tender, Non-Distended, No Hepato-splenomegaly Extremities: No edema, Capillary Refill Less than 3 Seconds Skin: No rashes, No breakdown Musculoskeletal: No Tenderness to Palpation of Joints or Extremities Neurological: Cranial nerves II-XII grossly intact, Motor Exam 5/5 strength throughout, Sensory exam intact to light touch and pain Psych/Mental Status: Normal Affect, Appropriate Results Lab / Micro Data Result Diagrams: 08/20/22 04:45 08/20/22 04:45 Labs: Laboratory Results - last 24 hr 08/20/22 04:30: Lactic Acid 1.5 08/20/22 04:39: POC Glucose 391 H 08/20/22 04:45: WBC 5.4, RBC 4.81, Hgb 15.1, Hct 44.1, MCV 91.7, MCH 31.4, MCHC 34.2, RDW Std Deviation 39.7, RDW Coeff of Kina 11.7, Plt Count 180, MPV 11.3, Immature Gran % (Auto) 0.700, Neut % (Auto) 83.1 H, Lymph % (Auto) 9.1 L, [place] % (Auto) 6.9, Eos % (Auto) 0.0, Baso % (Auto) 0.2, Absolute Neuts (auto) 4.5, Absolute Lymphs (auto) 0.49 L, Nucleated RBC % 0, Differential Comment SCANNED 08/20/22 04:45: Sodium 123 L, Potassium 4.2, Chloride 88 L, Carbon Dioxide 28.0, Anion Gap 7, BUN 13, Creatinine 1.03, Estim Creat Clear Calc 75.31, Est GFR (MDRD) Af Amer 94, Est GFR (MDRD) Non-Af 78, BUN/Creatinine Ratio 12.6, Glucose 364 H, Calcium 8.5, Magnesium 1.8, Total Bilirubin 0.50, Direct Bilirubin 0.16, AST 48 H, ALT 47, Alkaline Phosphatase 91, Total Protein 7.1, Albumin 2.5 L, Globulin 4.6 H 08/20/22 04:50: Ammonia 37.0 H 08/20/22 05:21: Urine Color Yellow, Urine Clarity Clear, Urine pH 6.0, Ur Specific Central 1.010, Urine Protein 500 H, Urine Glucose (UA) 1000 H, Urine Ketones 50 H, Urine Occult Blood 250 H, Urine Nitrite Negative, Urine Bilirubin Negative, Urine Urobilinogen Normal, Ur Leukocyte Esterase Negative, Urine RBC 0-5 SEEN, Urine WBC 0 SEEN, Ur Squamous Epith Cells 0-5 SEEN, Urine Bacteria RARE, Urine Mucus 0 SEEN 08/20/22 06:13: Procalcitonin 0.31 H 08/20/22 10:43: POC Glucose 420 H Micro: Microbiology 08/20/22 10:50 Mucosa - Nose Respiratory Panel (PCR) - Final 08/20/22 04:45 Nasal Secretion SARS-CoV-2 & FLU Antigen (Rapid) - Final ABG Data ABG results: ABG 08/20/22 04:56 Specimen Type ART Sample Site L Radial pH 7.47 H Bicarbonate Actual 23.9 Total CO2 25 Base Excess 0 O2 Saturation 89 L ABG pCO2 32.8 L ABG pO2 52 L Jose Luis Test Positive O2 Delivery Device Room Air Radiology Impression Chest X-Ray 08/20/22 04:43 IMPRESSION: The lungs Ill-defined subpleural groundglass opacities are seen more prominent in the lung bases , may represent atypical pneumonia or viral pneumonia (COVID-19 ?). are clear and expanded. Electronically Signed: Yoana Benz MD at 5:35 EST , Assessment & Plan Assessment/Plan (1) Acute respiratory failure with hypoxia: (2) Atypical pneumonia: PLAN: Plan 1. Acute hypoxic respiratory failure secondary to atypical pneumonia ? Obtain a sputum culture ? Continue with Rocephin and azithromycin ? Viral panels are negative for everything including COVID and flu ? He was on 4 L nasal cannula at rest and initially when he came in with ambulation he was down to 86% on room air 2. DM2/morbid obesity ? Discussed lifestyle modifications ? We will place him on insulin and adjust as necessary ? Accu-Cheks AC at bedtime sign 3. Hypertension ? His blood pressures are in the 170 systolic currently, will start him on lisinopril given his diabetes DVT: Lovenox Charges/Coding Visit Charges Inpatient E&M: 73515 Init Hosp L2
[2022-08-20] MEDS: Nystatin Powder 15gm Bottle 1 APPLIC TOPICAL ×2 (16:22→20:59)
[2022-08-20 16:35] LABS: Bedside Glucose 387 mg/dL (74-106)
[2022-08-20] MEDS: Lisinopril 10 MG Tablet PO (16:51)
[2022-08-20] MEDS: MELATONIN 10 MG TABLET PO (21:03)
[2022-08-20 23:40] LABS: Bedside Glucose 340 mg/dL (74-106)
[2022-08-21] VITALS (12 sets, daily range): BP systolic 127–179; BP diastolic 55–97; PULSE 83–96; RESP 18; TEMP 37.3–37.9; O2SAT 86–95
[2022-08-21 04:12] LABS: Absolute Lymphocyte Count 0.66 X10^3/uL (0.83-4.51); Basophil# 0.01 X10^3/uL; Basophil% 0.2 % (0-1); Hematocrit 43.1 % (40-54); Hemoglobin 15.2 g/dL (13.0-16.5); Lymphocyte # 0.66 X10^3/ul (0.83-4.51); Mean Corp Hgb Conc 35.3 g/dL (32-36); Mean Corpuscular Hgb 32.4 pg (27.0-32.0); Mean Corpuscular Volume 91.9 fL (80-94); Mean Platelet Vol. 10.9 fl (6.2-12.0); Monocyte# 0.35 X10^3/uL; Monocyte% 6.9 % (0-10); NRBC Flagged by Analyzer 0 % (0-5); Neutrophil # 4.02 X10^3/uL (2.7-7.7); Neutrophil % 79.5 % (47-70); POSITIVE MORPHOLOGY YES; Platelet Count 189 K/mm3 (150-450); RBC Distribution Width CV 11.9 % (11.6-14.6); RBC Distribution Width SD 39.9 fl (35.1-43.9); Red Blood Count 4.69 M/mm3 (4.6-6.2); White Blood Count 5.1 K/mm3 (4.4-11.0)
[2022-08-21 04:17] LABS: Differential Indicated SCAN CRITERIA MET
[2022-08-21 05:04] LABS: Anion Gap 10 (5-15); BUN 10 mg/dL (7-18); BUN/Creat Ratio 10.9 RATIO (10-20); Calcium,Total 8.1 mg/dL (8.5-10.1); Chloride 90 mmol/L (98-107); Creatinine, Serum 0.92 mg/dL (0.70-1.30); EST Glomerular Filtration Rate 89 mL/min (>60); Est Glom Filt Rate - Afr Amer 108 mL/min (>60); Estimated Creatinine Clearance 84.32 ml/min; Glucose 311 mg/dL (74-106); Sodium Level 126 mmol/L (136-145)
[2022-08-21 05:56] LABS: Differential Comment SCANNED
[2022-08-21] MEDS: hydrALAZINE 20 MG/ML Vial 5 MG IV (06:42)
[2022-08-21] MEDS: Insulin Lispro 100 UNIT/ML INSULN.PEN SC ×5 (08:14→21:31)
[2022-08-21] MEDS: Insulin Glargine-YFGN 100 UNIT/ML Pen 10 UNIT SC ×2 (08:15→08:38)
[2022-08-21] MEDS: Enoxaparin 40 MG/0.4 ML Syringe SC (08:36)
[2022-08-21] MEDS: Nystatin Powder 15gm Bottle 1 APPLIC TOPICAL ×2 (08:36→21:26)
[2022-08-21] MEDS: Lisinopril 10 MG Tablet PO (08:37)
[2022-08-21 08:50] LABS: Bedside Glucose 317 mg/dL (74-106)
[2022-08-21] MEDS: Ceftriaxone 1 GM/50 ML BAG IV (09:32)
--- NOTE | 2022-08-21 11:05 | CASEMGMT ---
PAOLA GUZMAN Face to Face with patient for initial transition planning/care coordination assessment. RN THOMAS introduced self and role at [facility]. Patient lying in bed, alert and oriented. Patient willing to participate in assessment and is able to answer all questions appropriately. Care providers, pharmacy, and demographics verified. Patient wishes to discharge home, denies need for home health at this time. Patient states he has no further needs or concerns at this time. CM to follow for discharge planning needs that may arise. PCP: Branden Specialists: none Preferred Pharmacy: [facility] Insurance: [facility] Prescription Benefit: yes Living Will/HPOA: none LNOK: Living Arrangements: Patient lives with in a 2 story apartment with 2 steps and railing to enter the home. Patient states he is independent Transportation: self, DME/HHC: Patient states he has shower chair, raised toilet, cane, walker at home. Patient has previously been to TCU. Patient is currently requiring oxygen, will monitor for home oxygen. Reviewed DME agency with patient and prefers [employer]. Patient declines HHC at discharge. Disposition Plan: Patient to discharge home with famiy support and follow-up plans in place. Will monitor for home oxygen Shamika SWEET, RN, CM
[2022-08-21] MEDS: Insulin Lispro 100 UNIT/ML INSULN.PEN 15 UNIT SC ×2 (11:58→16:23)
--- NOTE | 2022-08-21 12:00 | WOUNDNOTE ---
wound photo: left foot
[2022-08-21 12:20] LABS: Bedside Glucose 394 mg/dL (74-106)
--- NOTE | 2022-08-21 16:21 | PCM.PN.HOSP ---
Subjective Subjective Doing well, was having some episodes of diarrhea overnight C. difficile and enteric pathogens pending Objective Data Objective Data Vital Signs: Vital Signs Temp Pulse Resp BP Pulse Ox O2 Del Method O2 Flow Rate 99.2 F H 89 18 150/79 H 92 Nasal Cannula 4 08/21/22 15:13 08/21/22 15:13 08/21/22 15:13 08/21/22 15:13 08/21/22 15:13 08/21/22 15:13 08/21/22 15:13 FiO2 90 08/21/22 14:00 Oxygen Flow Rate (L/min) [At 4 REST with Oxygen] Oxygen Flow Rate (L/min) 4 Oxygen Delivery Method Nasal Cannula Weight: 337 lb 4.916 oz Body Mass Index (BMI) 49.8 Intake & Output: Intake and Output for Last 24 Hours 08/20/22 08/21/22 08/22/22 03:59 03:59 03:59 Intake Total 2225 / 2225 305 / 305 Output Total 1225 / 1225 1500 / 1500 Balance 1000 / 1000 -1195 / -1195 Lab / Micro Data Result Diagrams: 08/21/22 03:50 08/21/22 03:50 Labs: Laboratory Results - last 24 hr 08/20/22 16:15: POC Glucose 387 H 08/20/22 22:13: POC Glucose 340 H 08/21/22 03:50: WBC 5.1, RBC 4.69, Hgb 15.2, Hct 43.1, MCV 91.9, MCH 32.4 H, MCHC 35.3, RDW Std Deviation 39.9, RDW Coeff of Kina 11.9, Plt Count 189, MPV 10.9, Immature Gran % (Auto) 0.400, Neut % (Auto) 79.5 H, Lymph % (Auto) 13.0 L, [place] % (Auto) 6.9, Eos % (Auto) 0.0, Baso % (Auto) 0.2, Absolute Neuts (auto) 4.0, Absolute Lymphs (auto) 0.66 L, Nucleated RBC % 0, Differential Comment SCANNED 08/21/22 03:50: Sodium 126 L, Potassium 4.0, Chloride 90 L, Carbon Dioxide 26.0, Anion Gap 10, BUN 10, Creatinine 0.92, Estim Creat Clear Calc 84.32, Est GFR (MDRD) Af Amer 108, Est GFR (MDRD) Non-Af 89, BUN/Creatinine Ratio 10.9, Glucose 311 H, Calcium 8.1 L 08/21/22 08:11: POC Glucose 317 H 08/21/22 11:55: POC Glucose 394 H Micro: Microbiology 08/20/22 17:00 Sputum, Expectorated/Coughed Gram Stain - Final 08/20/22 17:00 Sputum, Expectorated/Coughed Respiratory Culture - Preliminary Appears to be normal respiratory srinivas. Further studies to follow. 08/20/22 10:50 Mucosa - Nose Respiratory Panel (PCR) - Final 08/20/22 04:45 Nasal Secretion SARS-CoV-2 & FLU Antigen (Rapid) - Final Physical Exam Narrative General: Alert, Oriented x3, Cooperative, No apparent distress HEENT: Atraumatic, PERRLA, EOMI, Normocephalic Oral: Moist Mucosa Neck: Supple, No JVD Lungs: Diminished, Normal air movement, No rhonchi, No wheeze, No rales Cardiovascular: Regular rate, Regular Rhythm, Normal S1, Normal S2, No murmurs Abdomen: Soft, Non Tender, Non-Distended, No Hepato-splenomegaly Extremities: No edema, Capillary Refill Less than 3 Seconds Skin: No rashes, No breakdown Musculoskeletal: No Tenderness to Palpation of Joints or Extremities Neurological: Cranial nerves II-XII grossly intact, Motor Exam 5/5 strength throughout, Sensory exam intact to light touch and pain Psych/Mental Status: Normal Affect, Appropriate Assessment & Plan Assessment/Plan (1) Acute respiratory failure with hypoxia: (2) Atypical pneumonia: PLAN: Plan 1. Acute hypoxic respiratory failure secondary to atypical pneumonia/diarrhea ? Sputum culture is normal ? Continue with Rocephin and azithromycin ? Viral panels are negative for everything including COVID and flu ? He was on 4 L nasal cannula at rest and initially when he came in with ambulation he was down to 86% on room air ? Stool studies are pending 2. DM2/morbid obesity ? Discussed lifestyle modifications ? We will place him on insulin and adjust as necessary ? Accu-Cheks AC at bedtime sign 3. Hypertension ? His blood pressures are in the 170 systolic currently, will start him on lisinopril given his diabetes DVT: Lovenox Charges/Coding Visit Charges Inpatient E&M: 31209 Subs Hosp L2
[2022-08-21 16:46] LABS: Bedside Glucose 198 mg/dL (74-106)
[2022-08-21] MEDS: MELATONIN 10 MG TABLET PO (21:30)
[2022-08-21 22:30] LABS: Bedside Glucose 201 mg/dL (74-106)
[2022-08-22] VITALS (9 sets, daily range): BP systolic 101–141; BP diastolic 62–73; PULSE 79–90; RESP 16–18; TEMP 36.8–38; O2SAT 81–94
[2022-08-22] MEDS: Acetaminophen 325 MG Tablet 650 MG PO ×2 (02:49→22:05)
--- NOTE | 2022-08-22 02:52 | NURSING ---
Patient now on room air from 2L NC, SPO2 maintaining above 92%
[2022-08-22] MEDS: Insulin Glargine-YFGN 100 UNIT/ML Pen 20 UNIT SC (07:39)
[2022-08-22] MEDS: Insulin Lispro 100 UNIT/ML INSULN.PEN SC ×3 (07:40→17:00)
[2022-08-22] MEDS: Insulin Lispro 100 UNIT/ML INSULN.PEN 15 UNIT SC ×2 (07:40→11:02)
[2022-08-22 07:42] LABS: Absolute Lymphocyte Count 0.86 X10^3/uL (0.83-4.51); Absolute Neutrophil Count 3.2 X10^3/uL (2.0-7.7); Basophil# 0.01 X10^3/uL; Basophil% 0.2 % (0-1); Eosinophil# 0.01 X10^3/uL; Eosinophils% 0.2 % (0-5); Hematocrit 43.6 % (40-54); Hemoglobin 15.1 g/dL (13.0-16.5); Lymphocyte # 0.86 X10^3/ul (0.83-4.51); Lymphocyte % 18.9 % (19-41); Mean Corp Hgb Conc 34.6 g/dL (32-36); Mean Corpuscular Hgb 31.9 pg (27.0-32.0); Mean Platelet Vol. 11.6 fl (6.2-12.0); Monocyte# 0.42 X10^3/uL; Monocyte% 9.2 % (0-10); NRBC Flagged by Analyzer 0 % (0-5); Neutrophil # 3.24 X10^3/uL (2.7-7.7); Neutrophil % 71.1 % (47-70); POSITIVE MORPHOLOGY YES; Platelet Count 185 K/mm3 (150-450); RBC Distribution Width SD 41.2 fl (35.1-43.9); Red Blood Count 4.74 M/mm3 (4.6-6.2); White Blood Count 4.6 K/mm3 (4.4-11.0)
[2022-08-22 07:46] LABS: Anion Gap 7 (5-15); BUN 13 mg/dL (7-18); BUN/Creat Ratio 14.3 RATIO (10-20); Calcium,Total 8.4 mg/dL (8.5-10.1); Chloride 94 mmol/L (98-107); Creatinine, Serum 0.91 mg/dL (0.70-1.30); EST Glomerular Filtration Rate 90 mL/min (>60); Est Glom Filt Rate - Afr Amer 108 mL/min (>60); Estimated Creatinine Clearance 85.25 ml/min; Glucose 272 mg/dL (74-106); Potassium 3.6 mmol/L (3.5-5.1); Sodium Level 128 mmol/L (136-145)
[2022-08-22 07:47] LABS: Differential Indicated SCAN CRITERIA MET
[2022-08-22] MEDS: Enoxaparin 40 MG/0.4 ML Syringe SC (08:04)
[2022-08-22] MEDS: 0.9% Saline Lock 10 ML Syringe IV ×2 (08:06→21:58)
--- NOTE | 2022-08-22 08:17 | CPS ---
Pt was placed back on 3lpm. Saturation came up to 91%. Nurse aware of change.
[2022-08-22] MEDS: Ceftriaxone 1 GM/50 ML BAG IV (08:50)
[2022-08-22 10:06] LABS: Bedside Glucose 265 mg/dL (74-106)
[2022-08-22] MEDS: Menthol/Lanolin/Calamine/Znox 113 GM Tube 1 APPLIC TOPICAL ×2 (10:53→21:42)
[2022-08-22] MEDS: Nystatin Powder 15gm Bottle 1 APPLIC TOPICAL ×2 (10:54→21:43)
[2022-08-22] MEDS: Lisinopril 10 MG Tablet PO (11:07)
[2022-08-22 11:55] LABS: Bedside Glucose 298 mg/dL (74-106)
--- NOTE | 2022-08-22 12:30 | PCM.PN.HOSP ---
Subjective Subjective No new issues overnight, still requiring oxygen at rest and he needed 6 L nasal cannula to get up to 91% with ambulation Objective Data Objective Data Vital Signs: Vital Signs Temp Pulse Resp BP Pulse Ox O2 Del Method O2 Flow Rate 99.7 F H 82 16 116/72 93 Nasal Cannula 4 08/22/22 07:51 08/22/22 07:51 08/22/22 07:51 08/22/22 07:51 08/22/22 11:11 08/22/22 07:53 08/22/22 11:11 FiO2 94 08/22/22 07:53 Oxygen Flow Rate (L/min) [ 6 AMBULATING with Oxygen #2] Oxygen Flow Rate (L/min) [ 4 AMBULATING with Oxygen #1] Oxygen Flow Rate (L/min) [At 4 REST with Oxygen] Oxygen Flow Rate (L/min) 4 Oxygen Delivery Method Nasal Cannula Weight: 337 lb 4.916 oz Body Mass Index (BMI) 49.8 Intake & Output: Intake and Output for Last 24 Hours 08/21/22 08/22/22 08/23/22 03:59 03:59 03:59 Intake Total 2225 / 2225 705 / 705 825 / 825 Output Total 1225 / 1225 3675 / 3675 1280 / 1280 Balance 1000 / 1000 -2970 / -2970 -455 / -455 Lab / Micro Data Result Diagrams: 08/22/22 05:40 08/22/22 05:40 Labs: Laboratory Results - last 24 hr 08/21/22 16:22: POC Glucose 198 H 08/21/22 21:33: POC Glucose 201 H 08/22/22 05:40: WBC 4.6, RBC 4.74, Hgb 15.1, Hct 43.6, MCV 92.0, MCH 31.9, MCHC 34.6, RDW Std Deviation 41.2, RDW Coeff of Kina 12.0, Plt Count 185, MPV 11.6, Immature Gran % (Auto) 0.400, Neut % (Auto) 71.1 H, Lymph % (Auto) 18.9 L, [place] % (Auto) 9.2, Eos % (Auto) 0.2, Baso % (Auto) 0.2, Absolute Neuts (auto) 3.2, Absolute Lymphs (auto) 0.86, Nucleated RBC % 0 01/07/23 05:40: Sodium 128 L, Potassium 3.6, Chloride 94 L, Carbon Dioxide 27.0, Anion Gap 7, BUN 13, Creatinine 0.91, Estim Creat Clear Calc 85.25, Est GFR (MDRD) Af Amer 108, Est GFR (MDRD) Non-Af 90, BUN/Creatinine Ratio 14.3, Glucose 272 H, Calcium 8.4 L 08/22/22 07:36: POC Glucose 265 H 08/22/22 11:00: POC Glucose 298 H Micro: Microbiology 08/20/22 17:00 Sputum, Expectorated/Coughed Gram Stain - Final 08/20/22 17:00 Sputum, Expectorated/Coughed Respiratory Culture - Final Mixed normal respiratory srinivas. No Streptococcus pneumoniae, beta-hemolytic Streptococcus or Staphylococcus aureus isolated. 08/20/22 06:16 Blood Culture (Wb) - Left Hand Blood Culture - Preliminary No growth in 48 hours. 08/20/22 06:13 Blood Culture (Wb) - Right Forearm Blood Culture - Preliminary No growth in 48 hours. 08/21/22 13:43 Stool C. difficile DNA Amplification - Final 08/21/22 13:43 Stool Enteric Bacteriology - Final 08/20/22 10:50 Mucosa - Nose Respiratory Panel (PCR) - Final 08/20/22 04:45 Nasal Secretion SARS-CoV-2 & FLU Antigen (Rapid) - Final Physical Exam Narrative General: Alert, Oriented x3, Cooperative, No apparent distress HEENT: Atraumatic, PERRLA, EOMI, Normocephalic Oral: Moist Mucosa Neck: Supple, No JVD Lungs: Diminished, Normal air movement, No rhonchi, No wheeze, No rales Cardiovascular: Regular rate, Regular Rhythm, Normal S1, Normal S2, No murmurs Abdomen: Soft, Non Tender, Non-Distended, No Hepato-splenomegaly Extremities: Edema, Capillary Refill Less than 3 Seconds Skin: No rashes, No breakdown Musculoskeletal: No Tenderness to Palpation of Joints or Extremities Neurological: Cranial nerves II-XII grossly intact, Motor Exam 5/5 strength throughout, Sensory exam intact to light touch and pain Psych/Mental Status: Normal Affect, Appropriate Assessment & Plan Assessment/Plan (1) Acute respiratory failure with hypoxia: (2) Atypical pneumonia: PLAN: Plan 1. Acute hypoxic respiratory failure secondary to atypical pneumonia/diarrhea ? Sputum culture is normal ? Continue with Rocephin and azithromycin ? Viral panels are negative for everything including COVID and flu ? 4 L nasal cannula at rest but he needs 6 L to get 91% with ambulation ? Stool studies is negative ? Given the negative work-up, will also evaluate a possible cardiac source and order a BNP today especially since he stopped his medications a couple years ago and had significant hypertension on admission 2. DM2/morbid obesity ? Discussed lifestyle modifications ? We will place him on insulin and adjust as necessary ? Accu-Cheks AC at bedtime sign 3. Hypertension ? His blood pressures were in the 170 systolic ? Will start him on lisinopril given his diabetes DVT: Lovenox Charges/Coding Visit Charges Inpatient E&M: 92291 Subs Hosp L2
--- NOTE | 2022-08-22 16:05 | RAD_ITS ---
STUDY: X-RAY CHEST REASON FOR EXAM: Male, 61 years old. hypoxia TECHNIQUE: Single AP portable view of the chest. COMPARISON: 08/20/2022 FINDINGS: Bilateral airspace disease not significantly changed allowing for change in inspiratory level. Basilar presumed atelectasis slightly improved. There is no demonstrated pleural abnormality. Normal size heart. Normal mediastinum and miriam. Normal visualized pulmonary arteries. Normal visualized aortic arch and descending thoracic aorta. There are diffuse degenerative changes of the visualized thoracic spine. Normal visualized ribs, clavicles, and shoulders. There is no demonstrated abnormality of the visualized soft tissue structures of the upper abdomen. RAD/Chest 1 View (Portable) IMPRESSION: Imaging features can be seen with covid 19 pneumonia, but are nonspecific and may occur with a variety of infectious and noninfectious processes such as atypical viral pneumonia. Electronically Signed: Elinor James MD at 16:52 EST Reading Location ID and State: , Service support ,
[2022-08-22 17:31] LABS: Bedside Glucose 202 mg/dL (74-106)
[2022-08-22] MEDS: MELATONIN 10 MG TABLET PO (21:42)
[2022-08-22 21:55] LABS: Bedside Glucose 165 mg/dL (74-106)
[2022-08-23] VITALS (12 sets, daily range): BP systolic 115–132; BP diastolic 60–68; PULSE 74–83; RESP 18–22; TEMP 36.6–37.1; O2SAT 85–97
--- NOTE | 2022-08-23 07:44 | CT_ITS ---
STUDY: CT CHEST WITH CONTRAST REASON FOR EXAM: Male, 61 years old. SOB with O2 requirement RADIATION DOSAGE (If Supplied By Facility): CTDIvol = ( 18.38 ) mGy, DLP = ( 733.32 ) mGycm TECHNIQUE: Transaxial imaging was performed following intravenous administration of ml of 100mL Isovue-370 contrast material. Individualized dose optimization techniques were used for this CT. COMPARISON: CTA of the chest dated March 22, 2021. Chest x-ray dated August 22, 2022 FINDINGS: There are diffuse patchy pneumonic infiltrates and tree-in-bud nodular opacities scattered throughout both lungs due to moderate multifocal pneumonia. There is no demonstrated pleural abnormality. Normal heart and pericardium. There are calcifications of the coronary arteries. Normal mediastinum. Normal hilar regions. Normal enhanced pulmonary arteries. Normal aorta arch and descending thoracic aorta. There are multi-level degenerative changes of the thoracic spine. There is no demonstrated acute abnormality of the visualized upper abdomen. Mildly enlarged fatty liver. CT/Chest WITH Contrast IMPRESSION: 1. Moderate patchy pneumonic infiltrates scattered throughout both lungs Electronically Signed: Chandler Canales MD at 9:22 EST Reading Location ID and State: [address] [place] [address] , Service support ,
--- NOTE | 2022-08-23 08:18 | NURSING ---
to ct scan via bed
[2022-08-23 08:25] LABS: Bedside Glucose 328 mg/dL (74-106)
--- NOTE | 2022-08-23 08:34 | NURSING ---
pt returned from CT scan via bed
[2022-08-23] MEDS: Insulin Lispro 100 UNIT/ML INSULN.PEN SC ×4 (08:40→22:01)
[2022-08-23] MEDS: Insulin Lispro 100 UNIT/ML INSULN.PEN 15 UNIT SC ×3 (08:40→16:50)
[2022-08-23] MEDS: Insulin Glargine-YFGN 100 UNIT/ML Pen 20 UNIT SC (08:41)
[2022-08-23] MEDS: Menthol/Lanolin/Calamine/Znox 113 GM Tube 1 APPLIC TOPICAL ×2 (10:03→20:01)
[2022-08-23] MEDS: Nystatin Powder 15gm Bottle 1 APPLIC TOPICAL ×2 (10:03→20:01)
[2022-08-23] MEDS: Ceftriaxone 1 GM/50 ML BAG IV (10:04)
[2022-08-23] MEDS: Furosemide 40 MG/4 ML Vial IV ×2 (11:12→20:01)
--- NOTE | 2022-08-23 11:30 | NURSING ---
lovenox and lisinopril not in pt drawer or accudose-msg sent to Rx to please send
[2022-08-23 11:41] LABS: Bedside Glucose 329 mg/dL (74-106)
[2022-08-23] MEDS: Enoxaparin 40 MG/0.4 ML Syringe SC (13:12)
[2022-08-23] MEDS: Lisinopril 10 MG Tablet PO (13:14)
--- NOTE | 2022-08-23 13:35 | PN.HOSP_ITS ---
Subjective Subjective Remains stable, no issues overnight Objective Data Objective Data Vital Signs: Vital Signs Temp Pulse Resp BP Pulse Ox O2 Del Method O2 Flow Rate 97.9 F 74 22 H 131/68 H 85 Nasal Cannula 2 08/23/22 09:45 08/23/22 10:00 08/23/22 10:00 08/23/22 09:45 08/23/22 11:37 08/23/22 11:11 08/23/22 11:37 FiO2 94 08/22/22 07:53 Oxygen Flow Rate (L/min) [ 3 AMBULATING with Oxygen #2] Oxygen Flow Rate (L/min) [ 2 AMBULATING with Oxygen #1] Oxygen Flow Rate (L/min) [At 2 REST with Oxygen] Oxygen Flow Rate (L/min) 2 Oxygen Delivery Method Nasal Cannula Weight: 337 lb 4.916 oz Body Mass Index (BMI) 49.8 Intake & Output: Intake and Output for Last 24 Hours 08/22/22 08/23/22 08/24/22 03:59 03:59 03:59 Intake Total 705 / 705 1725 / 1725 3265 / 3265 Output Total 3675 / 3675 3130 / 3130 2800 / 2800 Balance -2970 / -2970 -1405 / -1405 465 / 465 Lab / Micro Data Result Diagrams: 08/22/22 05:40 08/22/22 05:40 Labs: Laboratory Results - last 24 hr 08/22/22 16:57: POC Glucose 202 H 08/22/22 21:36: POC Glucose 165 H 08/23/22 08:05: POC Glucose 328 H 08/23/22 11:16: POC Glucose 329 H Micro: Microbiology 08/20/22 17:00 Sputum, Expectorated/Coughed Gram Stain - Final 08/20/22 17:00 Sputum, Expectorated/Coughed Respiratory Culture - Final Mixed normal respiratory srinivas. No Streptococcus pneumoniae, beta-hemolytic Streptococcus or Staphylococcus aureus isolated. 08/20/22 06:16 Blood Culture (Wb) - Left Hand Blood Culture - Preliminary No growth in 48 hours. 08/20/22 06:13 Blood Culture (Wb) - Right Forearm Blood Culture - Preliminary No growth in 48 hours. 08/21/22 13:43 Stool C. difficile DNA Amplification - Final 08/21/22 13:43 Stool Enteric Bacteriology - Final 08/20/22 10:50 Mucosa - Nose Respiratory Panel (PCR) - Final 08/20/22 04:45 Nasal Secretion SARS-CoV-2 & FLU Antigen (Rapid) - Final Radiography Diagnostic Testing: Radiology Impression Chest X-Ray 08/22/22 16:05 IMPRESSION: Imaging features can be seen with covid 19 pneumonia, but are nonspecific and may occur with a variety of infectious and noninfectious processes such as atypical viral pneumonia. Electronically Signed: Elinor James MD at 16:52 EST Reading Location ID and State: 9 / , Service support , Chest CT 08/23/22 07:44 IMPRESSION: 1. Moderate patchy pneumonic infiltrates scattered throughout both lungs Electronically Signed: Chandler Canales MD at 9:22 EST Reading Location ID and State: [facility] / [place] , Service support , Physical Exam Narrative General: Alert, Oriented x3, Cooperative, No apparent distress HEENT: Atraumatic, PERRLA, EOMI, Normocephalic Oral: Moist Mucosa Neck: Supple, No JVD Lungs: Diminished, Normal air movement, No rhonchi, No wheeze, No rales Cardiovascular: Regular rate, Regular Rhythm, Normal S1, Normal S2, No murmurs Abdomen: Soft, Non Tender, Non-Distended, No Hepato-splenomegaly Extremities: Edema, Capillary Refill Less than 3 Seconds Skin: No rashes, No breakdown Musculoskeletal: No Tenderness to Palpation of Joints or Extremities Neurological: Cranial nerves II-XII grossly intact, Motor Exam 5/5 strength throughout, Sensory exam intact to light touch and pain Psych/Mental Status: Normal Affect, Appropriate Assessment & Plan Assessment/Plan (1) Acute respiratory failure with hypoxia: (2) Atypical pneumonia: PLAN: Plan 1. Acute hypoxic respiratory failure secondary to atypical pneumonia/diarrhea ? Sputum culture is normal ? Continue with Rocephin and azithromycin ? Viral panels are negative for everything including COVID and flu ? 4 L nasal cannula at rest but he needs 6 L to get 91% with ambulation ? Stool studies is negative ? BNP is unremarkable, we will trial him on a dose of Lasix and plan for an echo in the morning 2. DM2/morbid obesity ? Discussed lifestyle modifications ? We will place him on insulin and adjust as necessary ? Accu-Cheks AC at bedtime 3. Hypertension ? His blood pressures were in the 170 systolic ? Will start him on lisinopril given his diabetes DVT: Lovenox Charges/Coding Visit Charges Inpatient E&M: 30260 Subs Hosp L2
[2022-08-23] MEDS: 0.9% Saline Lock 10 ML Syringe IV (20:02)
[2022-08-23 20:06] LABS: Bedside Glucose 221 mg/dL (74-106)
[2022-08-23] MEDS: MELATONIN 10 MG TABLET PO (22:01)
[2022-08-24] VITALS (7 sets, daily range): BP systolic 96–116; BP diastolic 48–76; PULSE 86–90; RESP 14–18; TEMP 36.7–36.9; O2SAT 94–96
[2022-08-24 00:35] LABS: Bedside Glucose 280 mg/dL (74-106)
--- NOTE | 2022-08-24 02:23 | NURSING ---
upon checking pt VS pt was reading 86% on 3L NC while asleep. Pt awaken, denies SOB. This RN asked if pt has ever been diagnosed with Sleep apnea, pt answered yes but does not wear cpap. Provided education about how his 02 sats drops in the 80s while asleep and offered to see if willing to wear hospital equipment. Pt refused to wear any at this time. Pt fell back asleep, 02 bump to 6L NC, at 94%.
--- NOTE | 2022-08-24 05:55 | ECHOD_ITS ---
Reason For Study: Dyspnea/SOB Procedure This was a 2D Doppler, Color Flow transthoracic echocardiogram. Exam performed portable in patient room. Left Ventricle Normal LV size. Moderate concentric left ventricular hypertrophy. Left ventricular systolic function is normal. The estimated ejection fraction is 65 %. Stage 1 diastolic dysfunction. No regional wall motion abnormalities noted. Right Ventricle Normal RV size. Normal systolic function. Atria Normal left atrium. Normal right atrium. Mitral Valve Normal mitral valve. Tricuspid Valve Normal tricuspid valve. Aortic Valve Trisinus/trileaflet aortic valve. Pulmonic Valve Normal pulmonic valve. Great Vessels Normal aortic root. The pulmonary artery is normal size. Normal inferior vena cava. Pericardium/Pleural No pericardial effusion. MMode/2D Measurements & Calculations LVIDd: 4.2 cm IVSd: 1.6 cm Ao root diam: 3.3 cm LVIDs: 2.7 cm LVPWd: 1.4 cm RVDd: 3.3 cm FS: 36.6 % LAV(MOD-bp): 43.4 ml LVAd ap4: 33.9 cm2 SV(MOD-sp4): 59.8 ml LAV(MOD-bp) Indexed: 16.8 ml/m2 LVLd ap4: 9.1 cm LAV(MOD-sp2): 47.0 ml EDV(MOD-sp4): 104.7 ml LAV(MOD-sp4): 40.0 ml EDV(sp4-el): 106.8 ml LVAs ap4: 19.8 cm2 LVLs ap4: 7.6 cm ESV(MOD-sp4): 44.9 ml ESV(sp4-el): 43.3 ml EF(MOD-sp4): 57.1 % EF(sp4-el): 59.4 % SV(sp4-el): 63.4 ml LA A4 area: 15.1 cm2 LA dimension(2D): 3.7 cm RA A4 area: 12.1 cm2 Doppler Measurements & Calculations MV E max evan: 48.9 cm/sec Lat Peak E' Evan: 10.4 cm/sec Med Peak E' Evan: 5.5 cm/sec MV A max evan: 57.7 cm/sec E/E' lat: 4.7 E/E' med: 8.9 MV E/A: 0.85 Ao V2 max: 125.6 cm/sec LV V1 max: 110.1 cm/sec PA V2 max: 128.6 cm/sec Ao max P.3 mmHg LV V1 max P.8 mmHg Ao V2 mean: 98.6 cm/sec Ao mean P.1 mmHg Ao V2 VTI: 21.9 cm ECHO/Echo Complete Interpretation Summary Normal LV size. Left ventricular systolic function is normal. The estimated ejection fraction is 65 %. Moderate concentric left ventricular hypertrophy. Stage 1 diastolic dysfunction. Ordering Physician: Pa Mcgovern Referring Physician: Enrique Otero Chi Performed By: Katarina Michel, ATTILA, RVT
[2022-08-24 06:42] LABS: Absolute Lymphocyte Count 0.84 X10^3/uL (0.83-4.51); Basophil# 0.02 X10^3/uL; Basophil% 0.4 % (0-1); Eosinophil# 0.06 X10^3/uL; Eosinophils% 1.3 % (0-5); Hematocrit 43.7 % (40-54); Hemoglobin 14.8 g/dL (13.0-16.5); Lymphocyte # 0.84 X10^3/ul (0.83-4.51); Lymphocyte % 18.5 % (19-41); Mean Corp Hgb Conc 33.9 g/dL (32-36); Mean Corpuscular Hgb 30.9 pg (27.0-32.0); Mean Corpuscular Volume 91.2 fL (80-94); Mean Platelet Vol. 10.9 fl (6.2-12.0); Monocyte# 0.64 X10^3/uL; Monocyte% 14.1 % (0-10); NRBC Flagged by Analyzer 0 % (0-5); Neutrophil # 2.98 X10^3/uL (2.7-7.7); Neutrophil % 65.5 % (47-70); POSITIVE MORPHOLOGY YES; Platelet Count 262 K/mm3 (150-450); RBC Distribution Width CV 11.9 % (11.6-14.6); RBC Distribution Width SD 40.2 fl (35.1-43.9); Red Blood Count 4.79 M/mm3 (4.6-6.2); White Blood Count 4.6 K/mm3 (4.4-11.0)
[2022-08-24 06:46] LABS: Differential Indicated SCAN CRITERIA MET
[2022-08-24 06:58] LABS: Anion Gap 8 (5-15); BUN 11 mg/dL (7-18); BUN/Creat Ratio 11.3 RATIO (10-20); Calcium,Total 8.4 mg/dL (8.5-10.1); Chloride 94 mmol/L (98-107); Creatinine, Serum 0.97 mg/dL (0.70-1.30); EST Glomerular Filtration Rate 83 mL/min (>60); Est Glom Filt Rate - Afr Amer 101 mL/min (>60); Estimated Creatinine Clearance 79.97 ml/min; Glucose 305 mg/dL (74-106); Potassium 3.6 mmol/L (3.5-5.1); Sodium Level 130 mmol/L (136-145)
[2022-08-24 08:09] LABS: Differential Comment SCANNED
[2022-08-24] MEDS: Insulin Glargine-YFGN 100 UNIT/ML Pen 30 UNIT SC (08:26)
[2022-08-24] MEDS: Enoxaparin 40 MG/0.4 ML Syringe SC (08:27)
[2022-08-24] MEDS: Insulin Lispro 100 UNIT/ML INSULN.PEN SC ×2 (08:27→12:33)
[2022-08-24] MEDS: Insulin Lispro 100 UNIT/ML INSULN.PEN 15 UNIT SC ×2 (08:27→12:32)
[2022-08-24] MEDS: Nystatin Powder 15gm Bottle 1 APPLIC TOPICAL (08:28)
[2022-08-24] MEDS: Menthol/Lanolin/Calamine/Znox 113 GM Tube 1 APPLIC TOPICAL (08:28)
[2022-08-24] MEDS: Lisinopril 10 MG Tablet PO (08:28)
[2022-08-24 10:05] LABS: Bedside Glucose 311 mg/dL (74-106)
[2022-08-24] MEDS: Ceftriaxone 1 GM/50 ML BAG IV (10:21)
[2022-08-24 12:55] LABS: Bedside Glucose 203 mg/dL (74-106)
--- NOTE | 2022-08-24 16:46 | PCM.DC.SUM ---
Providers Date of Admission: 08/20/22 Date of Discharge: 08/24/22 Primary Care Physician: Dr. Enrique Otero MD Reason For Visit: HYPOXIA WITH PNEUMONIA Diagnosis Discharge Diagnosis (1) Acute respiratory failure with hypoxia: Status: Acute Code(s): J96.01 - Acute respiratory failure with hypoxia (2) Atypical pneumonia: Status: Acute Code(s): J18.9 - Pneumonia, unspecified organism Medications at Discharge Home Medications NK 08/20/22 Hospital Course Summary of Care Provided Hospital Course: This is a 61-year-old gentleman with multiple comorbidities including morbid obesity was admitted with progressive worsening of shortness of breath along with fever and generalized weakness. Patient also had loose bowel movements intermittently. COVID and flu test for respiratory panel was negative. Chest x-ray shows bilateral groundglass opacities suspicious for viral pneumonia. Patient arrived in PCU. 1.? Acute hypoxic respiratory failure secondary to atypical pneumonia/acute on chronic HFpEF ? Sputum culture is normal reported mixed normal respiratory srinivas. Blood cultures are negative for more than 48 hours. ? Continue with Rocephin and azithromycin ? Viral panels are negative for everything including COVID and flu ? 4 L nasal cannula at rest but he needs 6 L to get 91% with ambulation ? Patient also given Lasix. Had 2D echo which shows EF 65% with stage I diastolic dysfunction. Moderate concentric LVH. Patient also had diarrhea: Work-up for diarrhea negative including enteric bacteriology panel and C. difficile. Conservative management. 2.? DM2/morbid obesity ? Discussed lifestyle modifications ? Patient was treated with insulin and adjust as necessary ? Accu-Cheks AC at bedtime 3.? Hypertension ? His blood pressures were in the 170 systolic ? on lisinopril given his diabetes DVT: Lovenox Patient signed AMA. Microbiology Past 72 Hours 08/20/22 17:00 Sputum, Expectorated/Coughed Gram Stain - Final 08/20/22 17:00 Sputum, Expectorated/Coughed Respiratory Culture - Final Mixed normal respiratory srinivas. No Streptococcus pneumoniae, beta-hemolytic Streptococcus or Staphylococcus aureus isolated. 08/20/22 06:16 Blood Culture (Wb) - Left Hand Blood Culture - Preliminary No growth in 48 hours. 08/20/22 06:13 Blood Culture (Wb) - Right Forearm Blood Culture - Preliminary No growth in 48 hours. 08/21/22 13:43 Stool C. difficile DNA Amplification - Final 08/21/22 13:43 Stool Enteric Bacteriology - Final Laboratory Results 08/23/22 16:47: POC Glucose 221 H 08/23/22 22:00: POC Glucose 280 H 08/24/22 06:20: WBC 4.6, RBC 4.79, Hgb 14.8, Hct 43.7, MCV 91.2, MCH 30.9, MCHC 33.9, RDW Std Deviation 40.2, RDW Coeff of Kina 11.9, Plt Count 262, MPV 10.9, Immature Gran % (Auto) 0.200, Neut % (Auto) 65.5, Lymph % (Auto) 18.5 L, [place] % (Auto) 14.1 H, Eos % (Auto) 1.3, Baso % (Auto) 0.4, Absolute Neuts (auto) 3.0, Absolute Lymphs (auto) 0.84, Nucleated RBC % 0, Differential Comment SCANNED 08/24/22 06:20: Sodium 130 L, Potassium 3.6, Chloride 94 L, Carbon Dioxide 28.0, Anion Gap 8, BUN 11, Creatinine 0.97, Estim Creat Clear Calc 79.97, Est GFR (MDRD) Af Amer 101, Est GFR (MDRD) Non-Af 83, BUN/Creatinine Ratio 11.3, Glucose 305 H, Calcium 8.4 L 08/24/22 08:25: POC Glucose 311 H 08/24/22 12:31: POC Glucose 203 H Physical Exam Narrative Seen and examined. Patient is short of breath. Patient still has bilateral lower leg swelling on 3 L of oxygen. Patient asking for discharge but when I said he needs to stay in hospital for more treatment but he declined/refused. He signed AMA. Physical exam General: Alert, Oriented x3, Cooperative, morbid obesity BMI 49.8 kg/m? HEENT: Atraumatic, PERRLA, EOMI, Normocephalic Oral: Deep oropharyngeal could not be visualized. No Gingival or Mucosal Lesions/ Ulcerations Neck: Supple, No JVD, Negative Carotid Bruits Lungs: Air entry diminished in bilateral lung bases. No crepitation/rhonchi. On 3 L of oxygen Cardiovascular: Regular rate, Regular Rhythm, Normal S1, Normal S2, No murmurs Abdomen: Bowel Sounds Present, Soft, Non Tender, Non-Distended : No renal angle tenderness. No suprapubic tenderness. Extremities: Below-knee 3+ pitting edema, Capillary Refill Less than 3 Seconds Skin: No rashes, No breakdown Musculoskeletal/spine: Surgical scar present over lower spine. No Tenderness to Palpation of Joints or Extremities Neurological: Cranial nerves II-XII grossly intact, DTR 2+/4 and Symmetrical, Neuro grossly intact Psych/Mental Status: Normal Affect, Appropriate. Weight / BMI Weight Weight: 337 lb 4.916 oz Body Mass Index (BMI) 49.8 ABG / Lab / Microbiology Data Result Diagrams: 08/24/22 06:20 08/24/22 06:20 Laboratory: Laboratory Results - last 24 hr 08/23/22 16:47: POC Glucose 221 H 08/23/22 22:00: POC Glucose 280 H 08/24/22 06:20: WBC 4.6, RBC 4.79, Hgb 14.8, Hct 43.7, MCV 91.2, MCH 30.9, MCHC 33.9, RDW Std Deviation 40.2, RDW Coeff of Kina 11.9, Plt Count 262, MPV 10.9, Immature Gran % (Auto) 0.200, Neut % (Auto) 65.5, Lymph % (Auto) 18.5 L, [place] % (Auto) 14.1 H, Eos % (Auto) 1.3, Baso % (Auto) 0.4, Absolute Neuts (auto) 3.0, Absolute Lymphs (auto) 0.84, Nucleated RBC % 0, Differential Comment SCANNED 08/24/22 06:20: Sodium 130 L, Potassium 3.6, Chloride 94 L, Carbon Dioxide 28.0, Anion Gap 8, BUN 11, Creatinine 0.97, Estim Creat Clear Calc 79.97, Est GFR (MDRD) Af Amer 101, Est GFR (MDRD) Non-Af 83, BUN/Creatinine Ratio 11.3, Glucose 305 H, Calcium 8.4 L 08/24/22 08:25: POC Glucose 311 H 08/24/22 12:31: POC Glucose 203 H Microbiology: Microbiology 08/20/22 17:00 Sputum, Expectorated/Coughed Gram Stain - Final 08/20/22 17:00 Sputum, Expectorated/Coughed Respiratory Culture - Final Mixed normal respiratory srinivas. No Streptococcus pneumoniae, beta-hemolytic Streptococcus or Staphylococcus aureus isolated. 08/20/22 06:16 Blood Culture (Wb) - Left Hand Blood Culture - Preliminary No growth in 48 hours. 08/20/22 06:13 Blood Culture (Wb) - Right Forearm Blood Culture - Preliminary No growth in 48 hours. 08/21/22 13:43 Stool C. difficile DNA Amplification - Final 08/21/22 13:43 Stool Enteric Bacteriology - Final 08/20/22 10:50 Mucosa - Nose Respiratory Panel (PCR) - Final 08/20/22 04:45 Nasal Secretion SARS-CoV-2 & FLU Antigen (Rapid) - Final Radiography Diagnostic Testing: Radiology Impression Echocardiogram 08/24/22 05:55 Interpretation Summary Normal LV size. Left ventricular systolic function is normal. The estimated ejection fraction is 65 %. Moderate concentric left ventricular hypertrophy. Stage 1 diastolic dysfunction. Ordering Physician: aP Mcgovern Referring Physician: Enrique Otero Chi Performed By: Katarina Michel RDCS, RVT Meaningful Use Info Meaningful Use Diagnoses (Choose all that apply): None applicable Discharge Plan Admission Admit Date/Time: 08/20/22 08:04 Attending Provider: Jorge Luis Carmen Primary Care Provider: Enrique Otero Chi Consulting Providers: Pa Mcgovern Discharge Orders/Prescriptions Prescriptions: No Action NK Referrals / Follow Up: Enrique Otero Chi, MD [Primary Care Provider] - Disposition Disposition (needs filled in before D/C Order can be placed): Against Medical Advice Charges/Coding Visit Charges Inpatient E&M: 39870 Disch Hosp >30min
== END 2022-08-24 14:56 | disposition left against medical advice (07) | DRG 193 ==
LOC: ED 05:58 → PCU 08-21 10:04
PROVIDERS: Admitting Provider Family Medicine; Emergency Provider Emergency Medicine; PCP Family Medicine Geriatric Medicine; Visit Provider Internal Medicine
DX: J12.9 Viral pneumonia, unspecified (principal); I50.33 Acute on chronic diastolic (congestive) heart failure; I11.0 Hypertensive heart disease with heart failure; J96.01 Acute respiratory failure with hypoxia; Z68.42 Body mass index [BMI] 45.0-49.9, adult; E66.01 Morbid (severe) obesity due to excess calories; E11.9 Type 2 diabetes mellitus without complications; E87.1 Hypo-osmolality and hyponatremia; E78.5 Hyperlipidemia, unspecified; R19.7 Diarrhea, unspecified; E03.9 Hypothyroidism, unspecified; G47.33 Obstructive sleep apnea (adult) (pediatric); G89.29 Other chronic pain; Z20.822 Contact with and (suspected) exposure to COVID-19; Z23 Encounter for immunization; Z53.29 Procedure and treatment not carried out because of patient's decision for other reasons
CPT/HCPCS: 36415; 36600; 71045; 71260; 80048; 80076; 81001; 82140; 82803; 82962; 83605; 83735; 83880; 84145; 85025; 87040; 87070; 87205; 87428; 87493; 87506; 87633; 93005; 93306; 96361; 96365; 96366; 96367; 96372; 96375; 96376; 97162; 97165; 99221; 99252; 99285; J7030; J7040; Q9967; 90686; A4216; G0378; G0463; J1940

== ENCOUNTER → 2022-08-26 | Outpatient (CLI) | payer OTHER, MEDICAID, SELFPAY ==
[2022-08-26 17:28] LABS: Absolute Lymphocyte Count 1.11 X10^3/uL (0.83-4.51); Absolute Neutrophil Count 2.6 X10^3/uL (2.0-7.7); Basophil# 0.03 X10^3/uL; Basophil% 0.7 % (0-1); Eosinophil# 0.17 X10^3/uL; Eosinophils% 3.7 % (0-5); Hematocrit 43.4 % (40-54); Hemoglobin 14.3 g/dL (13.0-16.5); Lymphocyte # 1.11 X10^3/ul (0.83-4.51); Lymphocyte % 24.2 % (19-41); Mean Corp Hgb Conc 32.9 g/dL (32-36); Mean Corpuscular Hgb 30.4 pg (27.0-32.0); Mean Corpuscular Volume 92.1 fL (80-94); Mean Platelet Vol. 11.2 fl (6.2-12.0); Monocyte# 0.69 X10^3/uL; Monocyte% 15.1 % (0-10); NRBC Flagged by Analyzer 0 % (0-5); Neutrophil # 2.55 X10^3/uL (2.7-7.7); Neutrophil % 55.6 % (47-70); Platelet Count 419 K/mm3 (150-450); RBC Distribution Width CV 11.7 % (11.6-14.6); RBC Distribution Width SD 39.6 fl (35.1-43.9); Red Blood Count 4.71 M/mm3 (4.6-6.2); White Blood Count 4.6 K/mm3 (4.4-11.0)
[2022-08-26 17:49] LABS: ALB/GLOB Ratio 0.5 RATIO (0.9-2.4); AST(SGOT) 43 U/L (15-37); Alanine Aminotransfer ALT/SGPT 115 U/L (16-61); Albumin, Serum 2.3 g/dL (3.2-5.0); Alkaline Phosphatase 101 U/L (45-117); Anion Gap 9 (5-15); BUN 11 mg/dL (7-18); BUN/Creat Ratio 13.3 RATIO (10-20); Calcium,Total 9.2 mg/dL (8.5-10.1); Chloride 97 mmol/L (98-107); Creatinine, Serum 0.83 mg/dL (0.70-1.30); EST Glomerular Filtration Rate 100 mL/min (>60); Est Glom Filt Rate - Afr Amer 121 mL/min (>60); Globulin 4.6 g/dL (2.2-4.2); Glucose 267 mg/dL (74-106); PSA,Total - Annual Screen 0.68 ng/mL (0.00-4.00); Potassium 4.3 mmol/L (3.5-5.1); Protein, Total 6.9 g/dL (6.4-8.2); Sodium Level 133 mmol/L (136-145); Thyroid Stim Hormone (TSH) 4.42 uIU/mL (0.358-3.74)
[2022-08-26 18:32] LABS: BNP,B-Type NATRIURETIC PEPTIDE 28.2 pg/mL (0-100)
[2022-08-26 19:00] LABS: Hemoglobin A1c > 14.0 % (3.8-5.6)
== END | disposition home or self-care (01) ==
PROVIDERS: PCP Family Medicine Geriatric Medicine; Visit Provider Family Medicine Geriatric Medicine
DX: R53.83 Other fatigue (principal); Z12.5 Encounter for screening for malignant neoplasm of prostate
CPT/HCPCS: 84153; 36415; 80053; 83036; 83880; 84443; 85025; G0103

== ENCOUNTER → 2022-11-30 | Outpatient (CLI) | payer OTHER, MEDICAID, SELFPAY ==
[2022-11-30 13:32] LABS: Absolute Lymphocyte Count 1.55 X10^3/uL (0.83-4.51); Basophil# 0.03 X10^3/uL; Basophil% 0.5 % (0-1); Eosinophil# 0.18 X10^3/uL; Eosinophils% 2.8 % (0-5); Hematocrit 46.8 % (40-54); Hemoglobin 16.1 g/dL (13.0-16.5); Lymphocyte # 1.55 X10^3/ul (0.83-4.51); Lymphocyte % 23.8 % (19-41); Mean Corp Hgb Conc 34.4 g/dL (32-36); Mean Corpuscular Hgb 32.5 pg (27.0-32.0); Mean Corpuscular Volume 94.5 fL (80-94); Monocyte# 0.73 X10^3/uL; Monocyte% 11.2 % (0-10); NRBC Flagged by Analyzer 0 % (0-5); Neutrophil # 3.97 X10^3/uL (2.7-7.7); Neutrophil % 61.1 % (47-70); Platelet Count 260 K/mm3 (150-450); RBC Distribution Width CV 12.2 % (11.6-14.6); RBC Distribution Width SD 42.2 fl (35.1-43.9); Red Blood Count 4.95 M/mm3 (4.6-6.2); White Blood Count 6.5 K/mm3 (4.4-11.0)
[2022-11-30 13:56] LABS: ALB/GLOB Ratio 0.8 RATIO (0.9-2.4); AST(SGOT) 21 U/L (15-37); Alanine Aminotransfer ALT/SGPT 37 U/L (16-61); Albumin, Serum 3.2 g/dL (3.2-5.0); Alkaline Phosphatase 86 U/L (45-117); Anion Gap 8 (5-15); BUN 17 mg/dL (7-18); BUN/Creat Ratio 14.9 RATIO (10-20); Chloride 98 mmol/L (98-107); Creatinine, Serum 1.14 mg/dL (0.70-1.30); EST Glomerular Filtration Rate 69 mL/min (>60); Est Glom Filt Rate - Afr Amer 84 mL/min (>60); Globulin 4.1 g/dL (2.2-4.2); Glucose 366 mg/dL (74-106); Potassium 4.1 mmol/L (3.5-5.1); Protein, Total 7.3 g/dL (6.4-8.2); Sodium Level 130 mmol/L (136-145); Thyroid Stim Hormone (TSH) 2.67 uIU/mL (0.358-3.74)
== END | disposition home or self-care (01) ==
LOC: POLAB3 10:48
PROVIDERS: PCP Family Medicine Geriatric Medicine; Visit Provider Family Medicine Geriatric Medicine
DX: I10 Essential (primary) hypertension (principal); E11.65 Type 2 diabetes mellitus with hyperglycemia
CPT/HCPCS: 36415; 80053; 84443; 85025

== ENCOUNTER → 2022-12-04 | Outpatient (CLI) | payer OTHER, MEDICAID, SELFPAY ==
[2022-12-04 12:47] LABS: Urine Sodium 70 mmol/L (Not Establ.)
[2022-12-04 12:53] LABS: Anion Gap 4 (5-15); BUN 19 mg/dL (7-18); Chloride 103 mmol/L (98-107); Creatinine, Serum 1.19 mg/dL (0.70-1.30); EST Glomerular Filtration Rate 66 mL/min (>60); Est Glom Filt Rate - Afr Amer 80 mL/min (>60); Glucose 346 mg/dL (74-106); Potassium 4.1 mmol/L (3.5-5.1); Sodium Level 133 mmol/L (136-145)
[2022-12-04 12:59] LABS: Osmolality, Serum 309 mOsm/KG (280-301); Osmolality, Urine 698 mOsm/KG
== END | disposition home or self-care (01) ==
LOC: POLAB3 10:26
PROVIDERS: PCP Family Medicine Geriatric Medicine; Visit Provider Family Medicine Geriatric Medicine
DX: E87.1 Hypo-osmolality and hyponatremia (principal)
CPT/HCPCS: 36415; 80048; 83930; 83935; 84300

== ENCOUNTER → 2023-04-12 | Outpatient (CLI) | payer OTHER, SELFPAY ==
[2023-04-12 12:05] LABS: Absolute Neutrophil Count 4.7 X10^3/uL (2.0-7.7); Basophil# 0.04 X10^3/uL; Basophil% 0.6 % (0-1); Eosinophil# 0.17 X10^3/uL; Eosinophils% 2.4 % (0-5); Hematocrit 48.7 % (40-54); Hemoglobin 16.4 g/dL (13.0-16.5); Lymphocyte % 22.3 % (19-41); Mean Corp Hgb Conc 33.7 g/dL (32-36); Mean Corpuscular Hgb 31.6 pg (27.0-32.0); Mean Corpuscular Volume 93.8 fL (80-94); Mean Platelet Vol. 10.8 fl (6.2-12.0); Monocyte# 0.65 X10^3/uL; NRBC Flagged by Analyzer 0 % (0-5); Neutrophil # 4.69 X10^3/uL (2.7-7.7); Neutrophil % 65.1 % (47-70); Platelet Count 234 K/mm3 (150-450); RBC Distribution Width CV 11.9 % (11.6-14.6); RBC Distribution Width SD 41.3 fl (35.1-43.9); Red Blood Count 5.19 M/mm3 (4.6-6.2); White Blood Count 7.2 K/mm3 (4.4-11.0)
[2023-04-12 12:50] LABS: ALB/GLOB Ratio 0.8 RATIO (0.9-2.4); AST(SGOT) 16 U/L (15-37); Alanine Aminotransfer ALT/SGPT 28 U/L (16-61); Albumin, Serum 3.2 g/dL (3.2-5.0); Alkaline Phosphatase 94 U/L (45-117); Anion Gap 6 (5-15); BUN 16 mg/dL (7-18); BUN/Creat Ratio 16.5 RATIO (10-20); Calcium,Total 8.9 mg/dL (8.5-10.1); Chloride 100 mmol/L (98-107); Creatinine, Serum 0.97 mg/dL (0.70-1.30); EST Glomerular Filtration Rate 83 mL/min (>60); Est Glom Filt Rate - Afr Amer 100 mL/min (>60); Glucose 261 mg/dL (74-106); Potassium 4.2 mmol/L (3.5-5.1); Protein, Total 7.2 g/dL (6.4-8.2); Sodium Level 135 mmol/L (136-145); Thyroid Stim Hormone (TSH) 5.28 uIU/mL (0.358-3.74)
== END | disposition home or self-care (01) ==
LOC: POLAB3 11:26
PROVIDERS: PCP Family Medicine Geriatric Medicine; Visit Provider Family Medicine Geriatric Medicine
DX: I10 Essential (primary) hypertension (principal); E11.65 Type 2 diabetes mellitus with hyperglycemia
CPT/HCPCS: 36415; 80053; 84443; 85025